=== PATIENT | male | born 1965 | race American Indian/Alaskan Native ===

== ENCOUNTER 2018-11-04 15:01 | Inpatient (IN) | payer OTHER ==
[2018-11-04] MEDS ORDERED: NACL 0.9% 1000 ML IV ONE (15:34)
[2018-11-04] MEDS ORDERED: HumuLIN R IV ONE (15:40)
[2018-11-04] MEDS ORDERED: D50W (25GM) Syringe IV PRN (15:40)
[2018-11-04 15:59] LABS: Bacteria,Urine 1+ /HPF (Negative); Bilirubin,Urine NEG (Negative); Blood,Urine MOD (Negative); Color,Urine Yellow (Yellow); Mucus,Urine FEW /HPF; Protein,Urine <15 mg/dL mg/dL (Negative); Urobilinogen,Urine < 2.0 mg/dL (<2.0)
[2018-11-04] MEDS ORDERED: ROCEPHIN/NS 1 GM/50 ML 1 GM/50 ML BAG IV ONE (16:11)
[2018-11-04 16:13] LABS: Hematocrit 41.9 % (35.5-45.6); Hemoglobin 13.8 gm/dl (11.8-15.2); Mean Corpuscular HGB Conc 33 % (32-34); Mean Corpuscular Volume 92 fl (84-94); Platelet Count 160 K/mm3 (140-440); Red Blood Count 4.56 M/mm3 (3.65-5.03); Red Cell Distribution Width 14.7 % (13.2-15.2)
[2018-11-04 16:26] LABS: INR 1.27 (0.87-1.13)
[2018-11-04 16:27] LABS: Partial Thromboplastin Time 31.6 Sec. (24.2-36.6)
[2018-11-04 16:35] LABS: Albumin 3.1 g/dL (3.9-5); Calcium 7.2 mg/dL (8.4-10.2)
[2018-11-04 16:42] LABS: Free T4 (Free Thyroxine) 0.68 ng/dL (0.76-1.46)
[2018-11-04] MEDS ORDERED: CALCIUM GLUCONATE 1,000 MG in NACL 0.9% 100 ML IV ONE (17:00)
--- NOTE | 2018-11-04 17:03 | Cat Scan Report ---
CT head/brain wo con INDICATION / CLINICAL INFORMATION: 53 years Male; ams, found on ground. 53-year-old male TECHNIQUE: Routine CT head without contrast. All CT scans at this location are performed using CT dos e reduction for ALARA by means of automated exposure control. COMPARISON: None. FINDINGS: BRAIN / INTRACRANIAL CONTENTS: No acute hemorrhage, mass effect, midline shift, hydrocephalus, or acu te, large territorial infarct. No chronic infarct or focal atrophy. Normal brain volume and ventricul ar/sulcal size for age. No significant white matter abnormality. CRANIOCERVICAL JUNCTION: No significant abnormality. ORBITS: No significant abnormality of visualized orbits. SINUSES / MASTOIDS: Mild mucosal thickening seen in the ethmoids. Osteoma seen in the right frontal s inus-of no clinical significance. ADDITIONAL FINDINGS: None. IMPRESSION: 1. No focal mass, hemorrhage, hydrocephalus, or acute, large territorial infarct. Signer Name: Shiva Diehl MD, III Signed: 11/04/2018 4:59 PM Workstation Name: [id number]
--- NOTE | 2018-11-04 17:09 | Cat Scan Report ---
CT cervical spine wo con INDICATION / CLINICAL INFORMATION: 53 years Male; MAIN: ams, found on ground fall, head injury PT IS UNRESPONSIVE OLD CT HD AND CERVI MINNIE SENT. TECHNIQUE: Axial CT images of the cervical spine were obtained. Sagittal and coronal reformatted images were pr oduced. All CT scans at this location are performed using CT dose reduction for ALARA by means of aut omated exposure control. COMPARISON: None available. FINDINGS: POST-SURGICAL CHANGES: None. ALIGNMENT: Normal cervical lordosis seen without significant scoliosis. VERTEBRAE: No signs of fracture. Vertebral bodies are grossly normal in height throughout. No signif icant facet joint disease or osseous foraminal narrowing appreciated. INTRAVERTEBRAL DISCS:Disc spaces are fairly well-maintained throughout without significant canal sten osis. PARASPINAL SOFT TISSUES: No significant abnormality. ADDITIONAL FINDINGS: None. IMPRESSION: 1. No signs of acute bony trauma to the cervical spine. Signer Name: Shiva Diehl MD, III Signed: 11/04/2018 5:05 PM Workstation Name: [id number]
--- NOTE | 2018-11-04 17:10 | Emergency Department Report ---
ED Altered Mental Status HPI - General Chief Complaint: Hyperglycemia Stated Complaint: AMS Time Seen by Provider: 11/04/18 15:33 Source: EMS, old records reviewed (no previous medical record) Mode of arrival: Stretcher Limitations: Altered Mental Status - History of Present Illness Initial Comments: 53-year-old male with a past medical history diabetes presents to the hospital via EMS for also recently mental status and hyperglycemia. Patient's friends and family have not heard from the patient at least 5 days[address] broke down the door and patient was found unresponsive on the kitchen floor covered in fecal matter. Blood sugar was greater than 500 upon EMS arrival. He reported a systolic pressure in the 90s that was responsive to 1 L of IV fluid with a systolic pressure 109 upon arrival. Patient does open eyes and follows some commands and makes incomprehensible sounds when he speaks. No further history of present illness available at this time. No previous medical record available for review. - Related Data Allergies Allergy/AdvReac Type Severity Reaction Status Date / Time No Known Allergies Allergy Unverified 11/04/18 15:22 ED Review of Systems ROS: Stated complaint: AMS Other details as noted in HPI Comment: All other systems reviewed and negative ED Past Medical Hx - Past Medical History Hx Diabetes: Yes - Social History Smoking Status: Unknown if ever smoked ED Physical Exam - General Limitations: Altered Mental Status - Other Other exam information: General: Altered Head exam: No hematoma Eyes exam: Normal appearance, pupils equal reactive to light, extraocular movements intact ENT: Dry mucous membranes Neck exam: Patient with c-collar upon presentation Respiratory exam: Clear to auscultation bilateral, no wheezes, rales, crackles Cardiovascular: Normal rate and rhythm Abdomen: Soft, nondistended, and nontender, with normal bowel sounds, no rebound, or guarding Extremity: Full range of motion normal inspection no deformity Back: Patient on backboard initially. Patient log rolled without any signs of contusions. Backboard removed with C-spine immobilization. Neurologic: Lethargic, oriented 0, and cost sounds, equal hand tank maker wood bilateral 4/10 in intensity. Equal foot dorsiflexion with poor antigravity movement bilateral legs. Psychiatric: Confused Skin: Covered in fecal material, no laceration ED Course Vital Signs 11/04/18 11/04/18 11/04/18 15:20 15:37 15:43 Temperature 97.6 F Pulse Rate 115 H 102 H Pulse Rate [ Anterior] Respiratory 26 H 26 H Rate Respiratory Rate [Anterior] Blood Pressure 109/73 103/73 [Left] O2 Sat by Pulse 100 Oximetry 11/04/18 11/04/18 17:00 17:32 Temperature Pulse Rate Pulse Rate [ 97 H 100 H Anterior] Respiratory Rate Respiratory 19 19 Rate [Anterior] Blood Pressure [Left] O2 Sat by Pulse Oximetry - Consultations Consultation #1: 11/04/18 17:02 case d/w invertebrate paleontologist Machine Paint [employer]er Dr Baptiste. Will consult - Lab Data Result diagrams: 11/04/18 16:05 11/04/18 16:05 Lab Results 11/04/18 11/04/18 11/04/18 Range/Units 15:23 15:35 15:35 WBC (4.5-11.0) K/mm3 RBC (3.65-5.03) M/mm3 Hgb (11.8-15.2) gm/dl Hct (35.5-45.6) % MCV (84-94) fl MCH (28-32) pg MCHC (32-34) % RDW (13.2-15.2) % Plt Count (140-440) K/mm3 Add Manual Diff Total Counted Seg Neuts % (Manual) (40.0-70.0) % Band Neutrophils % % Lymphocytes % (Manual) (13.4-35.0) % Reactive Lymphs % (Man) % Monocytes % (Manual) (0.0-7.3) % Eosinophils % (Manual) (0.0-4.3) % Basophils % (Manual) (0.0-1.8) % Metamyelocytes % % Myelocytes % % Promyelocytes % % Blast Cells % % Nucleated RBC % Seg Neutrophils # Man (1.8-7.7) K/mm3 Band Neutrophils # K/mm3 Lymphocytes # (Manual) (1.2-5.4) K/mm3 Abs React Lymphs (Man) K/mm3 Monocytes # (Manual) (0.0-0.8) K/mm3 Eosinophils # (Manual) (0.0-0.4) K/mm3 Basophils # (Manual) (0.0-0.1) K/mm3 Metamyelocytes # K/mm3 Myelocytes # K/mm3 Promyelocytes # K/mm3 Blast Cells # K/mm3 WBC Morphology Hypersegmented Neuts Hyposegmented Neuts Hypogranular Neuts Smudge Cells Toxic Granulation Toxic Vacuolation Dohle Bodies Pelger-Huet Anomaly Liz Rods Platelet Estimate Clumped Platelets Plt Clumps, EDTA Large Platelets Giant Platelets Platelet Satelliting Plt Morphology Comment RBC Morphology Dimorphic RBCs Polychromasia Hypochromasia Poikilocytosis Anisocytosis Microcytosis Macrocytosis Spherocytes Pappenheimer Bodies Sickle Cells Target Cells Tear Drop Cells Ovalocytes Helmet Cells Vicente-Valliant Bodies Carlton Rings Deshler Cells Bite Cells Crenated Cell Elliptocytes Acanthocytes (Spur) Rouleaux Hemoglobin C Crystals Schistocytes Malaria parasites Osvaldo Bodies Hem Pathologist Commnt PT (12.2-14.9) Sec. INR (0.87-1.13) APTT (24.2-36.6) Sec. VBG pH (7.320-7.420) Sodium (137-145) mmol/L Potassium (3.6-5.0) mmol/L Chloride (98-107) mmol/L Carbon Dioxide (22-30) mmol/L Anion Gap mmol/L BUN (9-20) mg/dL Creatinine (0.8-1.5) mg/dL Estimated GFR ml/min BUN/Creatinine Ratio % Glucose (75-100) mg/dL POC Glucose > 500 H (70-105) Lactic Acid (0.7-2.0) mmol/L Calcium (8.4-10.2) mg/dL Phosphorus (2.5-4.5) mg/dL Magnesium (1.7-2.3) mg/dL Total Bilirubin (0.1-1.2) mg/dL AST (5-40) units/L ALT (7-56) units/L Alkaline Phosphatase (35-129) units/L Ammonia (25-60) umol/L Total Creatine Kinase (55-170) units/L Troponin T (0.00-0.029) ng/mL Total Protein (6.3-8.2) g/dL Albumin (3.9-5) g/dL Albumin/Globulin Ratio % TSH (0.270-4.200) mlU/mL Free T4 (0.76-1.46) ng/dL Urine Color Yellow (Yellow) Urine Turbidity Cloudy (Clear) Urine pH 5.0 (5.0-7.0) Ur Specific [place] 1.020 (1.003-1.030) Urine Protein <15 mg/dl (Negative) mg/dL Urine Glucose (UA) >=500 (Negative) mg/dL Urine Ketones Tr (Negative) mg/dL Urine Blood Mod (Negative) Urine Nitrite Neg (Negative) Urine Bilirubin Neg (Negative) Urine Urobilinogen < 2.0 (<2.0) mg/dL Ur Leukocyte Esterase Tr (Negative) Urine WBC (Auto) 12.0 H (0.0-6.0) /HPF Urine RBC (Auto) 7.0 (0.0-6.0) /HPF Urine Bacteria (Auto) 1+ (Negative) /HPF Urine Mucus Few /HPF Urine Opiates Screen Presumptive negative Urine Methadone Screen Presumptive negative Ur Barbiturates Screen Presumptive negative Ur Phencyclidine Scrn Presumptive negative Ur Amphetamines Screen Presumptive negative U Benzodiazepines Scrn Presumptive negative Urine Cocaine Screen Presumptive negative U Marijuana (THC) Screen Presumptive negative Drugs of Abuse Note Disclamer 11/04/18 11/04/18 11/04/18 Range/Units 16:05 16:05 16:05 WBC 12.6 H (4.5-11.0) K/mm3 RBC 4.56 (3.65-5.03) M/mm3 Hgb 13.8 (11.8-15.2) gm/dl Hct 41.9 (35.5-45.6) % MCV 92 (84-94) fl MCH 30 (28-32) pg MCHC 33 (32-34) % RDW 14.7 (13.2-15.2) % Plt Count 160 (140-440) K/mm3 Add Manual Diff Complete Total Counted 100 Seg Neuts % (Manual) 84.0 H (40.0-70.0) % Band Neutrophils % 7.0 % Lymphocytes % (Manual) 1.0 L (13.4-35.0) % Reactive Lymphs % (Man) 0 % Monocytes % (Manual) 5.0 (0.0-7.3) % Eosinophils % (Manual) 0 (0.0-4.3) % Basophils % (Manual) 0 (0.0-1.8) % Metamyelocytes % 3.0 % Myelocytes % 0 % Promyelocytes % 0 % Blast Cells % 0 % Nucleated RBC % Not Reportable Seg Neutrophils # Man 10.6 H (1.8-7.7) K/mm3 Band Neutrophils # 0.9 K/mm3 Lymphocytes # (Manual) 0.1 L (1.2-5.4) K/mm3 Abs React Lymphs (Man) 0.0 K/mm3 Monocytes # (Manual) 0.6 (0.0-0.8) K/mm3 Eosinophils # (Manual) 0.0 (0.0-0.4) K/mm3 Basophils # (Manual) 0.0 (0.0-0.1) K/mm3 Metamyelocytes # 0.4 K/mm3 Myelocytes # 0.0 K/mm3 Promyelocytes # 0.0 K/mm3 Blast Cells # 0.0 K/mm3 WBC Morphology Not Reportable Hypersegmented Neuts Not Reportable Hyposegmented Neuts Not Reportable Hypogranular Neuts Not Reportable Smudge Cells Not Reportable Toxic Granulation Not Reportable Toxic Vacuolation Not Reportable Dohle Bodies Not Reportable Pelger-Huet Anomaly Not Reportable Liz Rods Not Reportable Platelet Estimate Consistent w auto Clumped Platelets Not Reportable Plt Clumps, EDTA Not Reportable Large Platelets Not Reportable Giant Platelets Not Reportable Platelet Satelliting Not Reportable Plt Morphology Comment Not Reportable RBC Morphology Not Reportable Dimorphic RBCs Not Reportable Polychromasia Not Reportable Hypochromasia Not Reportable Poikilocytosis Not Reportable Anisocytosis Not Reportable Microcytosis Not Reportable Macrocytosis Not Reportable Spherocytes Not Reportable Pappenheimer Bodies Not Reportable Sickle Cells Not Reportable Target Cells Not Reportable Tear Drop Cells Not Reportable Ovalocytes Not Reportable Helmet Cells Not Reportable Vicente-Valliant Bodies Not Reportable Carlton Rings Not Reportable Lyndsey Cells Not Reportable Bite Cells Not Reportable Crenated Cell Not Reportable Elliptocytes Few Acanthocytes (Spur) Not Reportable Rouleaux Not Reportable Hemoglobin C Crystals Not Reportable Schistocytes Not Reportable Malaria parasites Not Reportable Osvaldo Bodies Not Reportable Hem Pathologist Commnt No PT (12.2-14.9) Sec. INR (0.87-1.13) APTT (24.2-36.6) Sec. VBG pH (7.320-7.420) Sodium 153 H (137-145) mmol/L Potassium 6.2 H* (3.6-5.0) mmol/L Chloride 99.1 (98-107) mmol/L Carbon Dioxide 18 L (22-30) mmol/L Anion Gap 42 mmol/L BUN 200 H (9-20) mg/dL Creatinine 6.8 H (0.8-1.5) mg/dL Estimated GFR 10 ml/min BUN/Creatinine Ratio 29 % Glucose 1088 H* (75-100) mg/dL POC Glucose (70-105) Lactic Acid (0.7-2.0) mmol/L Calcium 7.2 L (8.4-10.2) mg/dL Phosphorus (2.5-4.5) mg/dL Magnesium (1.7-2.3) mg/dL Total Bilirubin 0.40 (0.1-1.2) mg/dL AST 27 (5-40) units/L ALT 31 (7-56) units/L Alkaline Phosphatase 105 (35-129) units/L Ammonia (25-60) umol/L Total Creatine Kinase (55-170) units/L Troponin T 0.017 (0.00-0.029) ng/mL Total Protein 6.9 (6.3-8.2) g/dL Albumin 3.1 L (3.9-5) g/dL Albumin/Globulin Ratio 0.8 % TSH (0.270-4.200) mlU/mL Free T4 (0.76-1.46) ng/dL Urine Color (Yellow) Urine Turbidity (Clear) Urine pH (5.0-7.0) Ur Specific [place] (1.003-1.030) Urine Protein (Negative) mg/dL Urine Glucose (UA) (Negative) mg/dL Urine Ketones (Negative) mg/dL Urine Blood (Negative) Urine Nitrite (Negative) Urine Bilirubin (Negative) Urine Urobilinogen (<2.0) mg/dL Ur Leukocyte Esterase (Negative) Urine WBC (Auto) (0.0-6.0) /HPF Urine RBC (Auto) (0.0-6.0) /HPF Urine Bacteria (Auto) (Negative) /HPF Urine Mucus /HPF Urine Opiates Screen Urine Methadone Screen Ur Barbiturates Screen Ur Phencyclidine Scrn Ur Amphetamines Screen U Benzodiazepines Scrn Urine Cocaine Screen U Marijuana (THC) Screen Drugs of Abuse Note 11/04/18 11/04/18 11/04/18 Range/Units 16:05 16:05 16:05 WBC (4.5-11.0) K/mm3 RBC (3.65-5.03) M/mm3 Hgb (11.8-15.2) gm/dl Hct (35.5-45.6) % MCV (84-94) fl MCH (28-32) pg MCHC (32-34) % RDW (13.2-15.2) % Plt Count (140-440) K/mm3 Add Manual Diff Total Counted Seg Neuts % (Manual) (40.0-70.0) % Band Neutrophils % % Lymphocytes % (Manual) (13.4-35.0) % Reactive Lymphs % (Man) % Monocytes % (Manual) (0.0-7.3) % Eosinophils % (Manual) (0.0-4.3) % Basophils % (Manual) (0.0-1.8) % Metamyelocytes % % Myelocytes % % Promyelocytes % % Blast Cells % % Nucleated RBC % Seg Neutrophils # Man (1.8-7.7) K/mm3 Band Neutrophils # K/mm3 Lymphocytes # (Manual) (1.2-5.4) K/mm3 Abs React Lymphs (Man) K/mm3 Monocytes # (Manual) (0.0-0.8) K/mm3 Eosinophils # (Manual) (0.0-0.4) K/mm3 Basophils # (Manual) (0.0-0.1) K/mm3 Metamyelocytes # K/mm3 Myelocytes # K/mm3 Promyelocytes # K/mm3 Blast Cells # K/mm3 WBC Morphology Hypersegmented Neuts Hyposegmented Neuts Hypogranular Neuts Smudge Cells Toxic Granulation Toxic Vacuolation Dohle Bodies Pelger-Huet Anomaly Liz Rods Platelet Estimate Clumped Platelets Plt Clumps, EDTA Large Platelets Giant Platelets Platelet Satelliting Plt Morphology Comment RBC Morphology Dimorphic RBCs Polychromasia Hypochromasia Poikilocytosis Anisocytosis Microcytosis Macrocytosis Spherocytes Pappenheimer Bodies Sickle Cells Target Cells Tear Drop Cells Ovalocytes Helmet Cells Vicente-Valliant Bodies Carlton Rings Lyndsey Cells Bite Cells Crenated Cell Elliptocytes Acanthocytes (Spur) Rouleaux Hemoglobin C Crystals Schistocytes Malaria parasites Osvaldo Bodies Hem Pathologist Commnt PT 15.6 H (12.2-14.9) Sec. INR 1.27 H (0.87-1.13) APTT 31.6 (24.2-36.6) Sec. VBG pH 7.245 L (7.320-7.420) Sodium (137-145) mmol/L Potassium (3.6-5.0) mmol/L Chloride (98-107) mmol/L Carbon Dioxide (22-30) mmol/L Anion Gap mmol/L BUN (9-20) mg/dL Creatinine (0.8-1.5) mg/dL Estimated GFR ml/min BUN/Creatinine Ratio % Glucose (75-100) mg/dL POC Glucose (70-105) Lactic Acid 2.80 H* (0.7-2.0) mmol/L Calcium (8.4-10.2) mg/dL Phosphorus (2.5-4.5) mg/dL Magnesium (1.7-2.3) mg/dL Total Bilirubin (0.1-1.2) mg/dL AST (5-40) units/L ALT (7-56) units/L Alkaline Phosphatase (35-129) units/L Ammonia (25-60) umol/L Total Creatine Kinase (55-170) units/L Troponin T (0.00-0.029) ng/mL Total Protein (6.3-8.2) g/dL Albumin (3.9-5) g/dL Albumin/Globulin Ratio % TSH (0.270-4.200) mlU/mL Free T4 (0.76-1.46) ng/dL Urine Color (Yellow) Urine Turbidity (Clear) Urine pH (5.0-7.0) Ur Specific [place] (1.003-1.030) Urine Protein (Negative) mg/dL Urine Glucose (UA) (Negative) mg/dL Urine Ketones (Negative) mg/dL Urine Blood (Negative) Urine Nitrite (Negative) Urine Bilirubin (Negative) Urine Urobilinogen (<2.0) mg/dL Ur Leukocyte Esterase (Negative) Urine WBC (Auto) (0.0-6.0) /HPF Urine RBC (Auto) (0.0-6.0) /HPF Urine Bacteria (Auto) (Negative) /HPF Urine Mucus /HPF Urine Opiates Screen Urine Methadone Screen Ur Barbiturates Screen Ur Phencyclidine Scrn Ur Amphetamines Screen U Benzodiazepines Scrn Urine Cocaine Screen U Marijuana (THC) Screen Drugs of Abuse Note 11/04/18 11/04/18 11/04/18 Range/Units 16:05 16:05 16:05 WBC (4.5-11.0) K/mm3 RBC (3.65-5.03) M/mm3 Hgb (11.8-15.2) gm/dl Hct (35.5-45.6) % MCV (84-94) fl MCH (28-32) pg MCHC (32-34) % RDW (13.2-15.2) % Plt Count (140-440) K/mm3 Add Manual Diff Total Counted Seg Neuts % (Manual) (40.0-70.0) % Band Neutrophils % % Lymphocytes % (Manual) (13.4-35.0) % Reactive Lymphs % (Man) % Monocytes % (Manual) (0.0-7.3) % Eosinophils % (Manual) (0.0-4.3) % Basophils % (Manual) (0.0-1.8) % Metamyelocytes % % Myelocytes % % Promyelocytes % % Blast Cells % % Nucleated RBC % Seg Neutrophils # Man (1.8-7.7) K/mm3 Band Neutrophils # K/mm3 Lymphocytes # (Manual) (1.2-5.4) K/mm3 Abs React Lymphs (Man) K/mm3 Monocytes # (Manual) (0.0-0.8) K/mm3 Eosinophils # (Manual) (0.0-0.4) K/mm3 Basophils # (Manual) (0.0-0.1) K/mm3 Metamyelocytes # K/mm3 Myelocytes # K/mm3 Promyelocytes # K/mm3 Blast Cells # K/mm3 WBC Morphology Hypersegmented Neuts Hyposegmented Neuts Hypogranular Neuts Smudge Cells Toxic Granulation Toxic Vacuolation Dohle Bodies Pelger-Huet Anomaly Liz Rods Platelet Estimate Clumped Platelets Plt Clumps, EDTA Large Platelets Giant Platelets Platelet Satelliting Plt Morphology Comment RBC Morphology Dimorphic RBCs Polychromasia Hypochromasia Poikilocytosis Anisocytosis Microcytosis Macrocytosis Spherocytes Pappenheimer Bodies Sickle Cells Target Cells Tear Drop Cells Ovalocytes Helmet Cells Vicente-Valliant Bodies Carlton Rings Deshler Cells Bite Cells Crenated Cell Elliptocytes Acanthocytes (Spur) Rouleaux Hemoglobin C Crystals Schistocytes Malaria parasites Osvaldo Bodies Hem Pathologist Commnt PT (12.2-14.9) Sec. INR (0.87-1.13) APTT (24.2-36.6) Sec. VBG pH (7.320-7.420) Sodium (137-145) mmol/L Potassium (3.6-5.0) mmol/L Chloride (98-107) mmol/L Carbon Dioxide (22-30) mmol/L Anion Gap mmol/L BUN (9-20) mg/dL Creatinine (0.8-1.5) mg/dL Estimated GFR ml/min BUN/Creatinine Ratio % Glucose (75-100) mg/dL POC Glucose (70-105) Lactic Acid (0.7-2.0) mmol/L Calcium (8.4-10.2) mg/dL Phosphorus 13.80 H (2.5-4.5) mg/dL Magnesium 3.60 H (1.7-2.3) mg/dL Total Bilirubin (0.1-1.2) mg/dL AST (5-40) units/L ALT (7-56) units/L Alkaline Phosphatase (35-129) units/L Ammonia 47.0 (25-60) umol/L Total Creatine Kinase (55-170) units/L Troponin T (0.00-0.029) ng/mL Total Protein (6.3-8.2) g/dL Albumin (3.9-5) g/dL Albumin/Globulin Ratio % TSH 0.169 L (0.270-4.200) mlU/mL Free T4 0.68 L (0.76-1.46) ng/dL Urine Color (Yellow) Urine Turbidity (Clear) Urine pH (5.0-7.0) Ur Specific [place] (1.003-1.030) Urine Protein (Negative) mg/dL Urine Glucose (UA) (Negative) mg/dL Urine Ketones (Negative) mg/dL Urine Blood (Negative) Urine Nitrite (Negative) Urine Bilirubin (Negative) Urine Urobilinogen (<2.0) mg/dL Ur Leukocyte Esterase (Negative) Urine WBC (Auto) (0.0-6.0) /HPF Urine RBC (Auto) (0.0-6.0) /HPF Urine Bacteria (Auto) (Negative) /HPF Urine Mucus /HPF Urine Opiates Screen Urine Methadone Screen Ur Barbiturates Screen Ur Phencyclidine Scrn Ur Amphetamines Screen U Benzodiazepines Scrn Urine Cocaine Screen U Marijuana (THC) Screen Drugs of Abuse Note 11/04/18 11/04/18 11/04/18 Range/Units 16:05 16:31 16:49 WBC (4.5-11.0) K/mm3 RBC (3.65-5.03) M/mm3 Hgb (11.8-15.2) gm/dl Hct (35.5-45.6) % MCV (84-94) fl MCH (28-32) pg MCHC (32-34) % RDW (13.2-15.2) % Plt Count (140-440) K/mm3 Add Manual Diff Total Counted Seg Neuts % (Manual) (40.0-70.0) % Band Neutrophils % % Lymphocytes % (Manual) (13.4-35.0) % Reactive Lymphs % (Man) % Monocytes % (Manual) (0.0-7.3) % Eosinophils % (Manual) (0.0-4.3) % Basophils % (Manual) (0.0-1.8) % Metamyelocytes % % Myelocytes % % Promyelocytes % % Blast Cells % % Nucleated RBC % Seg Neutrophils # Man (1.8-7.7) K/mm3 Band Neutrophils # K/mm3 Lymphocytes # (Manual) (1.2-5.4) K/mm3 Abs React Lymphs (Man) K/mm3 Monocytes # (Manual) (0.0-0.8) K/mm3 Eosinophils # (Manual) (0.0-0.4) K/mm3 Basophils # (Manual) (0.0-0.1) K/mm3 Metamyelocytes # K/mm3 Myelocytes # K/mm3 Promyelocytes # K/mm3 Blast Cells # K/mm3 WBC Morphology Hypersegmented Neuts Hyposegmented Neuts Hypogranular Neuts Smudge Cells Toxic Granulation Toxic Vacuolation Dohle Bodies Pelger-Huet Anomaly Liz Rods Platelet Estimate Clumped Platelets Plt Clumps, EDTA Large Platelets Giant Platelets Platelet Satelliting Plt Morphology Comment RBC Morphology Dimorphic RBCs Polychromasia Hypochromasia Poikilocytosis Anisocytosis Microcytosis Macrocytosis Spherocytes Pappenheimer Bodies Sickle Cells Target Cells Tear Drop Cells Ovalocytes Helmet Cells Vicente-Valliant Bodies Carlton Rings Lyndsey Cells Bite Cells Crenated Cell Elliptocytes Acanthocytes (Spur) Rouleaux Hemoglobin C Crystals Schistocytes Malaria parasites Osvaldo Bodies Hem Pathologist Commnt PT (12.2-14.9) Sec. INR (0.87-1.13) APTT (24.2-36.6) Sec. VBG pH (7.320-7.420) Sodium (137-145) mmol/L Potassium (3.6-5.0) mmol/L Chloride (98-107) mmol/L Carbon Dioxide (22-30) mmol/L Anion Gap mmol/L BUN (9-20) mg/dL Creatinine (0.8-1.5) mg/dL Estimated GFR ml/min BUN/Creatinine Ratio % Glucose (75-100) mg/dL POC Glucose (70-105) Lactic Acid 1.90 (0.7-2.0) mmol/L Calcium (8.4-10.2) mg/dL Phosphorus (2.5-4.5) mg/dL Magnesium (1.7-2.3) mg/dL Total Bilirubin (0.1-1.2) mg/dL AST (5-40) units/L ALT (7-56) units/L Alkaline Phosphatase (35-129) units/L Ammonia (25-60) umol/L Total Creatine Kinase 1857 H (55-170) units/L Troponin T 0.017 (0.00-0.029) ng/mL Total Protein (6.3-8.2) g/dL Albumin (3.9-5) g/dL Albumin/Globulin Ratio % TSH (0.270-4.200) mlU/mL Free T4 (0.76-1.46) ng/dL Urine Color (Yellow) Urine Turbidity (Clear) Urine pH (5.0-7.0) Ur Specific [place] (1.003-1.030) Urine Protein (Negative) mg/dL Urine Glucose (UA) (Negative) mg/dL Urine Ketones (Negative) mg/dL Urine Blood (Negative) Urine Nitrite (Negative) Urine Bilirubin (Negative) Urine Urobilinogen (<2.0) mg/dL Ur Leukocyte Esterase (Negative) Urine WBC (Auto) (0.0-6.0) /HPF Urine RBC (Auto) (0.0-6.0) /HPF Urine Bacteria (Auto) (Negative) /HPF Urine Mucus /HPF Urine Opiates Screen Urine Methadone Screen Ur Barbiturates Screen Ur Phencyclidine Scrn Ur Amphetamines Screen U Benzodiazepines Scrn Urine Cocaine Screen U Marijuana (THC) Screen Drugs of Abuse Note - EKG Data -: EKG Interpreted by Me (danni) EKG shows normal: sinus rhythm, axis (qrs axis 73), QRS complexes (qrsd 64), ST- T waves (no stemi) Rate: tachycardia (109) When compared to previous EKG there are: previous EKG unavailable - Radiology Data Radiology results: report reviewed CT cervical spine wo con INDICATION / CLINICAL INFORMATION: 53 years Male; MAIN: ams, found on ground fall, head injury PT IS UNRESPONSIVE OLD CT HD AND CE RVICAL SENT. TECHNIQUE: Axial CT images of the cervical spine were obtained. Sagittal and coronal reformatted images were produced. All CT scans at this location are performed using CT dose reduction for ALARA by means of automated exposure control. COMPARISON: None available. FINDINGS: POST-SURGICAL CHANGES: None. ALIGNMENT: Normal cervical lordosis seen without significant scoliosis. VERTEBRAE: No signs of fracture. Vertebral bodies are grossly normal in height throughout. No significant facet joint disease or osseous foraminal narrowing appreciated. INTRAVERTEBRAL DISCS:Disc spaces are fairly well-maintained throughout without significant canal stenosis. PARASPINAL SOFT TISSUES: No significant abnormality. ADDITIONAL FINDINGS: None. IMPRESSION: 1. No signs of acute bony trauma to the cervical spine. CT head/brain wo con INDICATION / CLINICAL INFORMATION: 53 years Male; ams, found on ground. 53-year-old male TECHNIQUE: Routine CT head without contrast. All CT scans at this location are performed using CT dose reduction for ALARA by means of automated exposure control. COMPARISON: None. FINDINGS: BRAIN / INTRACRANIAL CONTENTS: No acute hemorrhage, mass effect, midline shift, hydrocephalus, or acute, large territorial infarct. No chronic infarct or focal atrophy. Normal brain volume and ventricular/sulcal size for age. No significant white matter abnormality. CRANIOCERVICAL JUNCTION: No significant abnormality. ORBITS: No significant abnormality of visualized orbits. SINUSES / MASTOIDS: Mild mucosal thickening seen in the ethmoids. Osteoma seen in the right frontal sinus-of no clinical significance. ADDITIONAL FINDINGS: None. IMPRESSION: 1. No focal mass, hemorrhage, hydrocephalus, or acute, large territorial infarct. - Medical Decision Making Patient with hyperglycemia. Patient most likely HHNK but may also be acidotic due to dka. Insulin bolus and drip initiated in ed pt with renal failure with associated acidosis and hyperkalemia. BUN/Cr ratio suggestive of prerenal/dehydration as cause. + ck elevation. NS, Calcium gluconate, albuterol in ed. Renal consulted. delgado to monitor urine output. low tsh and t4 noted possible uti: rocephin, cultures ordered bp stable after IVF bolus. ct head/c-spine unremarkable for ich or acute injury Critical Care Time: Yes Critical care time in (mins) excluding proc time.: 35 Critical care attestation.: If time is entered above; I have spent that time in minutes in the direct care of this critically ill patient, excluding procedure time. ED Disposition Clinical Impression: DKA (diabetic ketoacidoses), Hyperkalemia, ARF (acute renal failure), Dehydration, Uremia, Acute alteration in mental status, Elevated CK, UTI (urinary tract infection) Disposition: -09 OP ADMIT IP TO THIS HOSP Is pt being admited?: Yes Condition: Serious Referrals: MILTON MEDINA MD [Primary Care Provider] - 3-5 Days Time of Disposition: 17:25 (Dr Meza/hosp)
[2018-11-04 17:13] LABS: Amphetamine Screen,Urine PRESUMPTIVE NEGATIVE; Benzodiazepines Screen,Urine PRESUMPTIVE NEGATIVE; Cannabinoid Screen,Urine PRESUMPTIVE NEGATIVE; Cocaine Screen,Urine PRESUMPTIVE NEGATIVE; Methadone Screen,Urine PRESUMPTIVE NEGATIVE; Opiate Screen,Urine PRESUMPTIVE NEGATIVE
[2018-11-04] MEDS: HumuLIN R 100 UNITS in NACL 0.9% 99 ML IV SCH (17:13)
[2018-11-04 17:14] LABS: Band Neutrophils # (Manual) 0.9 K/mm3; Basophils % (Manual) 0 % (0.0-1.8); Eosinophils % (Manual) 0 % (0.0-4.3); Total Cells Counted 100
[2018-11-04 17:15] LABS: Platelet Estimate Consistent w Auto
[2018-11-04] MEDS ORDERED: PROVENTIL IH ONE (17:22)
--- NOTE | 2018-11-04 17:41 | History and Physical Report ---
History of Present Illness Chief complaint: Stuporous History of present illness: 53 YO Male with DM presents to ED for evaluation. Pt is stuporous st time of my exam and unable to provide history. Pt history taken from EMS as well as ED staff. As per staff, the patient found down and unresponsive in his home. Pt last contact with family was 5 days ago. At that time the patient was in his usual state of health. A well check was conducted, and the patient was unable to answer the door. Law Enforcement was contacted, and gained entry into the home. The patient was subsequently found down, and unresponsive and lying on the kitchen floor covered in fecal matter. EMS notified, and upon arrival the patient was found to have a serum glucose above 500, and in distress. Pt transported to [facility]. Pt seen and evaluated in ED and found to have DKA, Metabolic Encephalopathy, Sepsis suspected secondary to UTI, Rhabdomyolysis, Acidosis, and Acute Kidney Injury. QSOFA Score:8. Pt admitted to ICU and initiated on Sepsis protocol, as well as DKA protocol. Nephrology consulted in ED. Pulmonary team consulted in ED. No further history obtainable. No prior admission for review. No medication listed at time of admission for reconciliation. 30minutes Additional critical care time spend providing care. Past History Past Medical History: diabetes Past Surgical History: No surgical history, Other (Reviewed: UTO) Social history: . denies: smoking, alcohol abuse, prescription drug abuse Family history: no significant family history (reviewed: UTO) Medications and Allergies Allergies Allergy/AdvReac Type Severity Reaction Status Date / Time No Known Allergies Allergy Unverified 11/04/18 15:22 Active Meds: Active Medications Dextrose (D50w (25gm) Syringe) 0 ml IV PRN PRN PRN Reason: Hypoglycemia Insulin Human Regular 100 (units/ Sodium Chloride) 100 mls @ 1 mls/hr IV TITR MARIEL; Protocol Review of Systems ROS unobtainable: due to mental status Exam - Constitutional Vitals: Temp Pulse Resp BP Pulse Ox 97.6 F 100 H 19 103/73 100 11/04/18 15:43 11/04/18 17:32 11/04/18 17:32 11/04/18 15:43 11/04/18 15:43 General appearance: Present: severe distress - EENT Eyes: Present: miosis - Neck Neck: Present: supple, normal ROM - Respiratory Respiratory effort: normal Respiratory: bilateral: CTA - Cardiovascular Rhythm: other (tachycardia) Heart Sounds: Present: S1 & S2. Absent: rub, click - Extremities Extremities: pulses symmetrical, No edema Peripheral Pulses: abnormal (capillary refill greater than 3.5 seconds) - Abdominal General gastrointestinal: Present: soft, non-tender, non-distended, normal bowel sounds Male genitourinary: Present: normal - Integumentary Integumentary: Present: clear, warm, dry - Musculoskeletal Musculoskeletal: generalized weakness - Psychiatric Psychiatric: no appropriate mood/affect, no intact judgment & insight, no memory intact, no cooperative, no agitated - Neurologic Neurologic: CNII-XII intact, no focal deficits, moves all extremities, no gait normal Results - Labs CBC & Chem 7: 11/04/18 16:05 11/04/18 16:05 Labs: Abnormal lab results 11/04/18 11/04/18 11/04/18 Range/Units 15:23 15:35 16:05 WBC 12.6 H (4.5-11.0) K/mm3 Seg Neuts % (Manual) 84.0 H (40.0-70.0) % Lymphocytes % (Manual) 1.0 L (13.4-35.0) % Seg Neutrophils # Man 10.6 H (1.8-7.7) K/mm3 Lymphocytes # (Manual) 0.1 L (1.2-5.4) K/mm3 PT (12.2-14.9) Sec. INR (0.87-1.13) VBG pH (7.320-7.420) Sodium (137-145) mmol/L Potassium (3.6-5.0) mmol/L Carbon Dioxide (22-30) mmol/L BUN (9-20) mg/dL Creatinine (0.8-1.5) mg/dL Glucose (75-100) mg/dL POC Glucose > 500 H (70-105) Lactic Acid (0.7-2.0) mmol/L Calcium (8.4-10.2) mg/dL Phosphorus (2.5-4.5) mg/dL Magnesium (1.7-2.3) mg/dL Total Creatine Kinase (55-170) units/L Albumin (3.9-5) g/dL TSH (0.270-4.200) mlU/mL Free T4 (0.76-1.46) ng/dL Urine WBC (Auto) 12.0 H (0.0-6.0) /HPF 11/04/18 11/04/18 11/04/18 Range/Units 16:05 16:05 16:05 WBC (4.5-11.0) K/mm3 Seg Neuts % (Manual) (40.0-70.0) % Lymphocytes % (Manual) (13.4-35.0) % Seg Neutrophils # Man (1.8-7.7) K/mm3 Lymphocytes # (Manual) (1.2-5.4) K/mm3 PT 15.6 H (12.2-14.9) Sec. INR 1.27 H (0.87-1.13) VBG pH (7.320-7.420) Sodium 153 H (137-145) mmol/L Potassium 6.2 H* (3.6-5.0) mmol/L Carbon Dioxide 18 L (22-30) mmol/L BUN 200 H (9-20) mg/dL Creatinine 6.8 H (0.8-1.5) mg/dL Glucose 1088 H* (75-100) mg/dL POC Glucose (70-105) Lactic Acid 2.80 H* (0.7-2.0) mmol/L Calcium 7.2 L (8.4-10.2) mg/dL Phosphorus (2.5-4.5) mg/dL Magnesium (1.7-2.3) mg/dL Total Creatine Kinase (55-170) units/L Albumin 3.1 L (3.9-5) g/dL TSH (0.270-4.200) mlU/mL Free T4 (0.76-1.46) ng/dL Urine WBC (Auto) (0.0-6.0) /HPF 11/04/18 11/04/18 11/04/18 Range/Units 16:05 16:05 16:05 WBC (4.5-11.0) K/mm3 Seg Neuts % (Manual) (40.0-70.0) % Lymphocytes % (Manual) (13.4-35.0) % Seg Neutrophils # Man (1.8-7.7) K/mm3 Lymphocytes # (Manual) (1.2-5.4) K/mm3 PT (12.2-14.9) Sec. INR (0.87-1.13) VBG pH 7.245 L (7.320-7.420) Sodium (137-145) mmol/L Potassium (3.6-5.0) mmol/L Carbon Dioxide (22-30) mmol/L BUN (9-20) mg/dL Creatinine (0.8-1.5) mg/dL Glucose (75-100) mg/dL POC Glucose (70-105) Lactic Acid (0.7-2.0) mmol/L Calcium (8.4-10.2) mg/dL Phosphorus 13.80 H (2.5-4.5) mg/dL Magnesium 3.60 H (1.7-2.3) mg/dL Total Creatine Kinase (55-170) units/L Albumin (3.9-5) g/dL TSH 0.169 L (0.270-4.200) mlU/mL Free T4 0.68 L (0.76-1.46) ng/dL Urine WBC (Auto) (0.0-6.0) /HPF 11/04/ Range/Units 16:05 WBC (4.5-11.0) K/mm3 Seg Neuts % (Manual) (40.0-70.0) % Lymphocytes % (Manual) (13.4-35.0) % Seg Neutrophils # Man (1.8-7.7) K/mm3 Lymphocytes # (Manual) (1.2-5.4) K/mm3 PT (12.2-14.9) Sec. INR (0.87-1.13) VBG pH (7.320-7.420) Sodium (137-145) mmol/L Potassium (3.6-5.0) mmol/L Carbon Dioxide (22-30) mmol/L BUN (9-20) mg/dL Creatinine (0.8-1.5) mg/dL Glucose (75-100) mg/dL POC Glucose (70-105) Lactic Acid (0.7-2.0) mmol/L Calcium (8.4-10.2) mg/dL Phosphorus (2.5-4.5) mg/dL Magnesium (1.7-2.3) mg/dL Total Creatine Kinase 1857 H (55-170) units/L Albumin (3.9-5) g/dL TSH (0.270-4.200) mlU/mL Free T4 (0.76-1.46) ng/dL Urine WBC (Auto) (0.0-6.0) /HPF Assessment and Plan - Patient Problems (1) Sepsis Current Visit: Yes Status: Acute Qualifiers: Sepsis type: sepsis due to unspecified organism Qualified Code(s): A41.9 - Sepsis, unspecified organism Plan to address problem: Sepsis Protocol: IV antibiotic therapy, blood cultures, monitor uop q shift, serial lactic acid, blood cultures, urinalysis, chest x ray. (2) Metabolic encephalopathy Current Visit: Yes Status: Acute Plan to address problem: CT head, neuro check, treat sepsis, treat dka, ivf resuscitation therapy, thyroid panel, aspiration precautions, seizure precautions.. (3) Acute kidney injury Current Visit: Yes Status: Acute Plan to address problem: IVF resuscitation therapy, Nephrology consulted in ED, urine electrolytes, renal ultrasound, avoid nephrotoxic agents, monitor serum creatnine. (4) Rhabdomyolysis Current Visit: Yes Status: Acute Qualifiers: Encounter type: initial encounter Plan to address problem: IVF resuscitation therapy, IV bicarbonate, repeat CK in am. Nephrology consulted. (5) DKA (diabetic ketoacidoses) Current Visit: Yes Status: Acute Plan to address problem: DKA Protocol: Admit to ICU, Insulin drip, IVF resuscitation therapy, serial bmp, monitor anion gap, (6) Hyperkalemia Current Visit: Yes Status: Acute Plan to address problem: Insulin, serial bmp, (7) UTI (urinary tract infection) Current Visit: Yes Status: Acute Qualifiers: Encounter type: initial encounter Plan to address problem: IV antibiotic therapy, Urinalysis, CBC, (8) Acidosis Current Visit: Yes Status: Acute Plan to address problem: IV bicarbonate, IVF resuscitation therapy, serial lactic acid, (9) Hypothyroidism Current Visit: Yes Status: Acute Qualifiers: Hypothyroidism type: unspecified Qualified Code(s): E03.9 - Hypothyroidism, unspecified Plan to address problem: IV synthroid therapy for 3 days, supportive care. Then change to oral replacement if patient alert and tolerating diet. (10) DVT prophylaxis Current Visit: Yes Status: Acute Plan to address problem: SCD to BLE while in bed, prophylactic heparin
[2018-11-04] MEDS ORDERED: SODIUM CHLORIDE FLUSH SYRINGE 10 ML IV PRN (17:42)
[2018-11-04] MEDS ORDERED: PROVENTIL IH PRN (17:42)
--- NOTE | 2018-11-04 17:43 | XRay Report ---
CHEST 1 VIEW, 11/04/2018 5:06 PM INDICATION: Altered mental status COMPARISON: None FINDINGS: Support devices: None Heart: Cardiac silhouette is within normal limits in size. Lungs/pleura: The lungs are clear of focal airspace disease or significant pleural effusion. Additional findings: No additional acute findings. IMPRESSION: 1. No evidence of acute cardiopulmonary process. Signer Name: Viridiana Ashley MD Signed: 11/04/2018 5:39 PM Workstation Name: [id number]
[2018-11-04] MEDS ORDERED: VANCOMYCIN PHARMACY TO DOSE IV SCH (18:00)
[2018-11-04] MEDS ORDERED: VANCOMYCIN 1,500 MG in NACL 0.9% 500 ML 500 ML IV ONE (18:00)
[2018-11-04] MEDS ORDERED: NACL 0.9% 1000 ML 2,000 ML ONE (18:32)
[2018-11-04] MEDS: NACL 0.9% 1000 ML 3,000 ML IV ONE ×2 (18:55→23:22)
--- NOTE | 2018-11-04 19:42 | Procedure Note ---
Date of procedure: 11/04/18 Pre-op diagnosis: Sepsis Post-op diagnosis: same Procedure: Procedure: Right Femoral Vein Central Line Placement under ultrasound guidance. Pt prepped and draped in the usual sterile fashion. Timeout taken to identify correct procedure, patient, and operative site. Ultrasound used to localize the RFV without difficulty. Local anesthesia obtained with lidocaine 1%. A seeker needle used to access the RFV underultrasound guidance. A guidewire was then passed into RFV and the seeker needle removed over the guidewire. A scalpel was used to incise the skin, and a dilator passed over the guidewire and then removed. A triple lumen catheter was advanced into the RFV and the guidewire removed. Triple lumen catheter was sewn in place. A biopatch was placed at the insertion site. All 3 ports flush and draw with ease. EBL: Minimal complications: None Sepcimen: none Anesthesia: local Surgeon: IVAN VARGAS Estimated blood loss: minimal Pathology: none Condition: stable Disposition: floor Anesthesia: local Surgeon: IVAN VARGAS Estimated blood loss: minimal Pathology: none Condition: critical Disposition: ICU
[2018-11-04 21:04] LABS: Calcium 6.4 mg/dL (8.4-10.2)
[2018-11-04] MEDS ORDERED: SODIUM BICARBONATE IV ONE (21:10)
[2018-11-04 21:15] LABS: Amphetamine Screen,Urine PRESUMPTIVE NEGATIVE; Benzodiazepines Screen,Urine PRESUMPTIVE NEGATIVE; Cannabinoid Screen,Urine PRESUMPTIVE NEGATIVE; Cocaine Screen,Urine PRESUMPTIVE NEGATIVE; Creatinine,Urine 58.1 mg/dL (0.1-20.0); Methadone Screen,Urine PRESUMPTIVE NEGATIVE; Opiate Screen,Urine PRESUMPTIVE NEGATIVE
[2018-11-04] MEDS ORDERED: NACL 0.45% 1000 ML 1,000 ML IV ONE (21:56)
[2018-11-04] MEDS: HEPARIN SUB-Q SCH (22:14)
[2018-11-04] MEDS: SODIUM CHLORIDE FLUSH SYRINGE 10 ML IV SCH (22:15)
--- NOTE | 2018-11-04 22:17 | Ultrasound Report ---
RENAL ULTRASOUND HISTORY: JAVY COMPARISON: None. TECHNIQUE: Multiple real-time ultrasonographic grayscale images were obtained of the kidneys and urin lucía bladder. FINDINGS: Right kidney: No significant abnormality. No hydronephrosis. Kidney measures 12.5 cm. Left kidney: No significant abnormality. No hydronephrosis. Kidney measures 12.6 cm. Urinary bladder: Garzon catheter in the urinary bladder Additional findings: None. IMPRESSION: 1. No significant abnormality. Signer Name: Erik Fishman MD Signed: 11/04/2018 10:13 PM Workstation Name: [id number]
[2018-11-04] MEDS ORDERED: NACL 0.45% 1000 ML 1,000 ML IV SCH (23:00)
[2018-11-05] MEDS: HumuLIN R 100 UNITS in NACL 0.9% 99 ML IV SCH (00:11)
[2018-11-05 01:07] LABS: Calcium 6.5 mg/dL (8.4-10.2)
[2018-11-05] MEDS ORDERED: SODIUM BICARBONATE 150 MEQ in D5W 1,000 ML IV SCH (02:00)
[2018-11-05 04:54] LABS: Calcium 6.3 mg/dL (8.4-10.2)
[2018-11-05] MEDS ORDERED: SYNTHROID IV SCH (06:00)
[2018-11-05] MEDS: D5W 1,000 ML IV SCH ×2 (06:13→17:03)
--- NOTE | 2018-11-05 08:54 | Progress Note ---
Assessment and Plan Assessment and plan: 53 YO Male with DM presents to ED for evaluation. Pt is stuporous st time of my exam and unable to provide history. Pt history taken from EMS as well as ED staff. As per staff, the patient found down and unresponsive in his home. Pt last contact with family was 5 days ago. At that time the patient was in his usual state of health. A well check was conducted, and the patient was unable to answer the door. Law Enforcement was contacted, and gained entry into the home. The patient was subsequently found down, and unresponsive and lying on the kitchen floor covered in fecal matter. EMS notified, and upon arrival the patient was found to have a serum glucose above 500, and in distress. Pt transported to [facility]. Pt seen and evaluated in ED and found to have DKA, Metabolic Encephalopathy, Sepsis suspected secondary to UTI, Rhabdomyolysis, Acidosis, and Acute Kidney Injury. QSOFA Score:8. Pt admitted to ICU and initiated on Sepsis protocol, as well as DKA protocol. Nephrology consulted in ED. Pulmonary team consulted in ED. No further history obtainable. No prior admission for review. No medication listed at time of admission for reconciliation. 30 minutes Additional critical care time spend providing care. CXR, CT HEAD, CT NECK- Negative for acute pathology. (1) Sepsis Current Visit: Yes Status: Acute Qualifiers: Sepsis type: sepsis due to unspecified organism Qualified Code(s): A41.9 - Sepsis, unspecified organism Plan to address problem: Sepsis Protocol: IV antibiotic therapy, blood cultures, monitor uop q shift, serial lactic acid, No Growth but continue to monitor blood cultures, urinalysis, chest x ray. Wound care consult for multiple skin lesions (2) Metabolic encephalopathy Current Visit: Yes Status: Acute Plan to address problem: CONTINUE neuro check, treat sepsis, ivf resuscitation therapy, thyroid panel, aspiration precautions, seizure precautions. Correct underlying issues (3) Acute kidney injury Secondary to vasomotor Nephropathy Current Visit: Yes Status: Acute Plan to address problem: IVF resuscitation therapy, Nephrology consulted in ED, urine electrolytes, renal ultrasound, avoid nephrotoxic agents, monitor serum creatnine. (4) Rhabdomyolysis Current Visit: Yes Status: Acute Qualifiers: Encounter type: initial encounter Plan to address problem: IVF resuscitation therapy, IV bicarbonate, repeat CK in am. Nephrology consulted. (5) DKA (diabetic ketoacidoses) Current Visit: Yes Status: Acute Plan to address problem: DKA Protocol: Continue Insulin drip, IVF resuscitation therapy, serial bmp, monitor anion gap, (6) Hyperkalemia Current Visit: Yes Status: Acute Plan to address problem: Insulin, serial bmp, (7) UTI (urinary tract infection) Current Visit: Yes Status: Acute Qualifiers: Encounter type: initial encounter Plan to address problem: IV antibiotic therapy, Urinalysis, CBC, (8) Acidosis Current Visit: Yes Status: Acute Plan to address problem: IV bicarbonate, IVF resuscitation therapy, serial lactic acid, (9) Hypothyroidism ?s/p myexedema coma Current Visit: Yes Status: Acute Qualifiers: Hypothyroidism type: unspecified Qualified Code(s): E03.9 - Hypothyroidism, unspecified Plan to address problem: IV synthroid therapy for 3 days, supportive care. Then change to oral replacement if patient alert and tolerating diet. (10) Hypocalcemia -Replace (11) Hypomagenesmia -Replace (12)DVT prophylaxis Current Visit: Yes Status: Acute Plan to address problem: SCD to BLE while in bed, prophylactic heparin Plan of care discussed with daughter. she will bring in his home medications The high probability of a clinically significant, sudden or life threatening deterioration of the [Neuro, respiratory, endocrine, pulmonary, renal] system(s) required my full and direct attention, intervention and personal management. The aggregate critical care time was [95] minutes. This time is in addition to time spent performing reported procedures but includes the following: [x] Data Review and interpretation [x] Patient assessment and monitoring of vital signs [x] Documentation [x] Medication orders and management Hospitalist Physical - Physical exam Narrative exam: General appearance: Present: Severe distress, Altered sensorium, spontaneously moving all ext and not following commands - EENT Eyes: Present: miosis - Neck Neck: Present: supple, normal ROM - Respiratory Respiratory effort: normal Respiratory: bilateral: CTA - Cardiovascular Rhythm: other (tachycardia) Heart Sounds: Present: S1 & S2. Absent: rub, click - Extremities Extremities: Pulses symmetrical, No edema Peripheral Pulses: abnormal (capillary refill greater than 3.5 seconds) - Abdominal General gastrointestinal: Present: soft, non-tender, non-distended, normal bowel sounds Male genitourinary: Present: normal - Integumentary Integumentary: Present: multiple eschar and skin lesion, mild erythema but no warmth - Musculoskeletal Musculoskeletal: generalized weakness - Psychiatric Psychiatric: Remains confused - Neurologic Neurologic: CNII-XII intact, no focal deficits, moves all extremities, gait not assessed - Constitutional Vitals: Temp Pulse Resp BP Pulse Ox 99.1 F 128 H 18 100/51 92 11/05/18 07:58 11/05/18 08:00 11/05/18 08:00 11/05/18 08:00 11/05/18 08:00 General appearance: Present: severe distress Results - Labs CBC & Chem 7: 11/04/18 16:05 11/05/18 08:21 Labs: Laboratory Last Values WBC 12.6 K/mm3 (4.5-11.0) H 11/04/18 16:05 RBC 4.56 M/mm3 (3.65-5.03) 11/04/18 16:05 Hgb 13.8 gm/dl (11.8-15.2) 11/04/18 16:05 Hct 41.9 % (35.5-45.6) 11/04/18 16:05 MCV 92 fl (84-94) 11/04/18 16:05 MCH 30 pg (28-32) 11/04/18 16:05 MCHC 33 % (32-34) 11/04/18 16:05 RDW 14.7 % (13.2-15.2) 11/04/18 16:05 Plt Count 160 K/mm3 (140-440) 11/04/18 16:05 Add Manual Diff Complete 11/04/18 16:05 Total Counted 100 11/04/18 16:05 Seg Neuts % (Manual) 84.0 % (40.0-70.0) H 11/04/18 16:05 7.0 % 11/04/18 16:05 1.0 % (13.4-35.0) L 11/04/18 16:05 Reactive Lymphs % (Man) 0 % 11/04/18 16:05 5.0 % (0.0-7.3) 11/04/18 16:05 0 % (0.0-4.3) 11/04/18 16:05 0 % (0.0-1.8) 11/04/18 16:05 3.0 % 11/04/18 16:05 0 % 11/04/18 16:05 0 % 11/04/18 16:05 0 % 11/04/18 16:05 Nucleated RBC % Not Reportable 11/04/18 16:05 Seg Neutrophils # Man 10.6 K/mm3 (1.8-7.7) H 11/04/18 16:05 Band Neutrophils # 0.9 K/mm3 11/04/18 16:05 0.1 K/mm3 (1.2-5.4) L 11/04/18 16:05 Abs React Lymphs (Man) 0.0 K/mm3 11/04/18 16:05 0.6 K/mm3 (0.0-0.8) 11/04/18 16:05 0.0 K/mm3 (0.0-0.4) 11/04/18 16:05 0.0 K/mm3 (0.0-0.1) 11/04/18 16:05 0.4 K/mm3 11/04/18 16:05 0.0 K/mm3 11/04/18 16:05 0.0 K/mm3 11/04/18 16:05 Blast Cells # 0.0 K/mm3 11/04/18 16:05 WBC Morphology Not Reportable 11/04/18 16:05 Hypersegmented Neuts Not Reportable 11/04/18 16:05 Hyposegmented Neuts Not Reportable 11/04/18 16:05 Hypogranular Neuts Not Reportable 11/04/18 16:05 Not Reportable 11/04/18 16:05 Not Reportable 11/04/18 16:05 Not Reportable 11/04/18 16:05 Not Reportable 11/04/18 16:05 Not Reportable 11/04/18 16:05 Not Reportable 11/04/18 16:05 Consistent w auto 11/04/18 16:05 Not Reportable 11/04/18 16:05 Plt Clumps, EDTA Not Reportable 11/04/18 16:05 Not Reportable 11/04/18 16:05 Not Reportable 11/04/18 16:05 Not Reportable 11/04/18 16:05 Plt Morphology Comment Not Reportable 11/04/18 16:05 RBC Morphology Not Reportable 11/04/18 16:05 Dimorphic RBCs Not Reportable 11/04/18 16:05 Not Reportable 11/04/18 16:05 Not Reportable 11/04/18 16:05 Not Reportable 11/04/18 16:05 Not Reportable 11/04/18 16:05 Not Reportable 11/04/18 16:05 Not Reportable 11/04/18 16:05 Not Reportable 11/04/18 16:05 Not Reportable 11/04/18 16:05 Not Reportable 11/04/18 16:05 Not Reportable 11/04/18 16:05 Not Reportable 11/04/18 16:05 Not Reportable 11/04/18 16:05 Not Reportable 11/04/18 16:05 Not Reportable 11/04/18 16:05 Not Reportable 11/04/18 16:05 Not Reportable 11/04/18 16:05 Not Reportable 11/04/18 16:05 Not Reportable 11/04/18 16:05 Few 11/04/18 16:05 Acanthocytes (Spur) Not Reportable 11/04/18 16:05 Rouleaux Not Reportable 11/04/18 16:05 Not Reportable 11/04/18 16:05 Not Reportable 11/04/18 16:05 Not Reportable 11/04/18 16:05 Not Reportable 11/04/18 16:05 Hem Pathologist Commnt No 11/04/18 16:05 PT 15.6 Sec. (12.2-14.9) H 11/04/18 16:05 INR 1.27 (0.87-1.13) H 11/04/18 16:05 APTT 31.6 Sec. (24.2-36.6) 11/04/18 16:05 VBG pH 7.245 (7.320-7.420) L 11/04/18 16:05 Sodium 169 mmol/L (137-145) H* 11/05/18 03:52 Potassium 4.3 mmol/L (3.6-5.0) 11/05/18 03:52 Chloride 126.2 mmol/L (98-107) H 11/05/18 03:52 Carbon Dioxide 23 mmol/L (22-30) 11/05/18 03:52 23 mmol/L 11/05/18 03:52 BUN 156 mg/dL (9-20) H 11/05/18 03:52 4.7 mg/dL (0.8-1.5) H 11/05/18 03:52 Estimated GFR 16 ml/min 11/05/18 03:52 33 % 11/05/18 03:52 Glucose 128 mg/dL (75-100) H 11/05/18 03:52 POC Glucose 157 (70-105) H 11/05/18 08:23 Lactic Acid 3.20 mmol/L (0.7-2.0) H* 11/04/18 23:47 Calcium 6.3 mg/dL (8.4-10.2) L 11/05/18 03:52 Phosphorus 13.80 mg/dL (2.5-4.5) H 11/04/18 16:05 Magnesium 3.60 mg/dL (1.7-2.3) H 11/04/18 16:05 0.40 mg/dL (0.1-1.2) 11/04/18 16:05 AST 27 units/L (5-40) 11/04/18 16:05 ALT 31 units/L (7-56) 11/04/18 16:05 105 units/L (35-129) 11/04/18 16:05 47.0 umol/L (25-60) 11/04/18 16:05 1680 units/L (55-170) H 11/05/18 03:52 0.017 ng/mL (0.00-0.029) 11/04/18 16:31 6.9 g/dL (6.3-8.2) 11/04/18 16:05 3.1 g/dL (3.9-5) L 11/04/18 16:05 0.8 % 11/04/18 16:05 TSH 0.169 mlU/mL (0.270-4.200) L 11/04/18 16:05 Free T4 0.68 ng/dL (0.76-1.46) L 11/04/18 16:05 Yellow (Yellow) 11/04/18 15:35 Cloudy (Clear) 11/04/18 15:35 5.0 (5.0-7.0) 11/04/18 15:35 Ur Specific [place] 1.020 (1.003-1.030) 11/04/18 15:35 <15 mg/dl mg/dL (Negative) 11/04/18 15:35 >=500 mg/dL (Negative) 11/04/18 15:35 Tr mg/dL (Negative) 11/04/18 15:35 Mod (Negative) 11/04/18 15:35 Neg (Negative) 11/04/18 15:35 Neg (Negative) 11/04/18 15:35 < 2.0 mg/dL (<2.0) 11/04/18 15:35 Ur Leukocyte Esterase Tr (Negative) 11/04/18 15:35 12.0 /HPF (0.0-6.0) H 11/04/18 15:35 7.0 /HPF (0.0-6.0) 11/04/18 15:35 1+ /HPF (Negative) 11/04/18 15:35 Few /HPF 11/04/18 15:35 58.1 mg/dL (0.1-20.0) H 11/04/18 20:55 34 mmol/L 11/04/18 20:55 Presumptive negative 11/04/18 20:55 Presumptive negative 11/04/18 20:55 Ur Barbiturates Screen Presumptive negative 11/04/18 20:55 Ur Phencyclidine Scrn Presumptive negative 11/04/18 20:55 Ur Amphetamines Screen Presumptive negative 11/04/18 20:55 U Benzodiazepines Scrn Presumptive negative 11/04/18 20:55 Presumptive negative 11/04/18 20:55 U Marijuana (THC) Screen Presumptive negative 11/04/18 20:55 Disclamer 11/04/18 20:55 Active Medications - Current Medications Current Medications: Generic Name Dose Route Start Last Admin Trade Name Freq PRN Reason Stop Dose Admin Albuterol 2.5 mg 11/04/18 17:42 Proventil IH Q3H PRN Shortness Of Breath Dextrose 0 ml 11/04/18 15:40 D50w (25gm) Syringe IV PRN PRN Hypoglycemia Heparin Sodium (Porcine) 5,000 unit 11/04/18 22:00 11/04/18 22:14 Heparin SUB-Q 5,000 unit Q12HR MARIEL Administration Insulin Human Regular 100 100 mls @ 1 mls/hr 11/04/18 16:00 11/05/18 06:55 units/ Sodium Chloride IV 1.5 units/hr TITR MARIEL 1.5 mls/hr Titration Protocol 1 UNITS/HR Ceftriaxone Sodium 1 gm in 50 mls @ 100 mls/hr 11/05/18 17:00 Rocephin/Ns 1 Gm/50 Ml IV 11/07/18 17:29 Q24H MARIEL Protocol Dextrose 1,000 mls @ 100 mls/hr 11/05/18 06:00 11/05/18 06:13 D5w IV 100 mls/hr DIRECT MARIEL Administration Sodium Chloride 2,000 mls @ 999 mls/hr 11/05/18 08:52 Nacl 0.9% 1000 Ml IV 11/05/18 10:52 BOLUS ONE Levothyroxine Sodium 100 mcg 11/05/18 06:00 11/05/18 06:16 Synthroid IV 11/06/18 05:59 100 mcg DAILY@0600 MARIEL Administration Sodium Chloride 10 ml 11/04/18 22:00 11/04/18 22:15 Sodium Chloride Flush Syringe 10 Ml IV 10 ml BID MARIEL Administration Sodium Chloride 10 ml 11/04/18 17:42 Sodium Chloride Flush Syringe 10 Ml IV PRN PRN LINE FLUSH
[2018-11-05] MEDS ORDERED: NACL 0.9% 1000 ML 2,000 ML IV ONE (09:00)
[2018-11-05 09:05] LABS: Calcium 6.7 mg/dL (8.4-10.2)
[2018-11-05] MEDS: HEPARIN SUB-Q SCH ×2 (10:17→21:22)
[2018-11-05] MEDS: SODIUM CHLORIDE FLUSH SYRINGE 10 ML IV SCH ×2 (10:21→21:45)
[2018-11-05] MEDS ORDERED: CALCIUM CHLORIDE 1,000 MG in NACL 0.9% 100 ML IV ONE (11:30)
--- NOTE | 2018-11-05 11:41 | XRay Report ---
ABDOMEN 1 VIEW(S) INDICATION: tube placement COMPARISON: None available. FINDINGS: Dobbhoff feeding tube is curled in the stomach Bowel gas pattern: Within normal limits. No dilated loops of large or small bowel. Free air: None. Calcified gallstones: None seen. Calcified urinary tract calculi: None seen. Additional Findings: None. Skeletal structures: No acute abnormality. IMPRESSION: 1. No acute findings. Signer Name: Erik Fishman MD Signed: 11/05/2018 11:37 AM Workstation Name: [id number]
--- NOTE | 2018-11-05 11:46 | Consultation ---
History of Present Illness - Reason for Consult Consult date: 11/05/18 acute renal failure, chronic renal failure, hypernatremia, hyperkalemia - History of Present Illness The patient is a 53 YO male with history significant for DM who presented to [facility] ED for evaluation of AMS. Pt is stuporous at the time of my exam and unable to provide history. History was obtained from previous documentation and her daughter at the bedside. The patient was found down and unresponsive in his home covered in fecal matter. Family member talked to him 5 days ago, at that time the patient was in his usual state of health. Upon arrival to ED he was altered and tachycardic. Labs wete significant for blood sugar above 1000, hyperkalemia, elevated BUN & Creatinine, bicarb 18. He was admitted with DKA, Metabolic Encephalopathy, Sepsis suspected secondary to UTI, Rhabdomyolysis and Acute Kidney Injury. Nephrology was consulted to manage JAVY and multiple electrolyte abnormalities. Past History Past Medical History: diabetes Past Surgical History: No surgical history, Other (Reviewed: UTO) Social history: . denies: smoking, alcohol abuse, prescription drug abuse Family history: no significant family history (reviewed: UTO) Medications and Allergies Allergies Allergy/AdvReac Type Severity Reaction Status Date / Time No Known Allergies Allergy Unverified 11/04/18 15:22 Active Meds: Active Medications Albuterol (Proventil) 2.5 mg IH Q3H PRN PRN Reason: Shortness Of Breath Dextrose (D50w (25gm) Syringe) 0 ml IV PRN PRN PRN Reason: Hypoglycemia Heparin Sodium (Porcine) (Heparin) 5,000 unit SUB-Q Q12HR MARIEL Last Admin: 11/05/18 10:17 Dose: 5,000 unit Documented by: Insulin Human Regular 100 (units/ Sodium Chloride) 100 mls @ 1 mls/hr IV TITR MARIEL; Protocol Last Titration: 11/05/18 06:55 Dose: 1.5 units/hr, 1.5 mls/hr Documented by: Ceftriaxone Sodium (Rocephin/Ns 1 Gm/50 Ml) 1 gm in 50 mls @ 100 mls/hr IV Q24H MARIEL; Protocol Stop: 11/07/18 17:29 Dextrose (D5w) 1,000 mls @ 100 mls/hr IV DIRECT MARIEL Last Admin: 11/05/18 06:13 Dose: 100 mls/hr Documented by: Levothyroxine Sodium (Synthroid) 100 mcg IV DAILY@0600 [facility] Stop: 11/06/18 05:59 Last Admin: 11/05/18 06:16 Dose: 100 mcg Documented by: Sodium Chloride (Sodium Chloride Flush Syringe 10 Ml) 10 ml IV BID [facility] Last Admin: 11/05/18 10:21 Dose: 10 ml Documented by: Sodium Chloride (Sodium Chloride Flush Syringe 10 Ml) 10 ml IV PRN PRN PRN Reason: LINE FLUSH Review of Systems ROS unobtainable: due to mental status Exam - Vital Signs Vital signs: Vital Signs Pulse BP 115 H 109/73 11/04/18 15:20 11/04/18 15:20 - General Appearance General appearance: well-developed, appears stated age, other (no distress) EENT: ATNC, PERRL Neck: Present: neck supple, trachea midline Respiratory: Clear to Ascultation Heart: regular, tachycardia, S1S2, no murmurs Gastrointestinal: Present: normoactive bowel sounds. Absent: tenderness, distended Integumentary: no rash, warm and dry Neurologic: other (grimaces) Musculoskeletal: Present: other (no edema) Results - Lab Results 11/04/18 16:05 11/05/18 13:47 Most recent lab results Calcium 6.7 mg/dL (8.4-10.2) L 11/05/18 08:21 Phosphorus 13.80 mg/dL (2.5-4.5) H 11/04/18 16:05 Magnesium 3.60 mg/dL (1.7-2.3) H 11/04/18 16:05 58.1 mg/dL (0.1-20.0) H 11/04/18 20:55 34 mmol/L 11/04/18 20:55 - Image Kidney/bladder ultrasound: report reviewed Assessment and Plan 1. Acute kidney injury: Vasomotor JAVY in the setting of volume depletion and DKA. Renal US was negative for hydro. Continue IV fluids. Renal function is improving. Monitor renal function. Renal prognosis is guarded. Avoid nephrotoxic agents. Meds dosage based on GFR. 2. FEN: Hyperkalemia, improved. Hypernatremia, continue IV D5W. Metabolic acidosis, improved. Monitor lytes. 3. DKA: On Insulin drip. 4. Sepsis: On multiple Abx. 5. UTI: Ceftriaxone. 6. Metabolic Encephalopathy. D/w his daughter and answered all questions.
[2018-11-05] MEDS ORDERED: LEVAQUIN 500MG/100ML 500 MG/100 ML BAG IV ONE (14:00)
[2018-11-05 14:44] LABS: Calcium 6.4 mg/dL (8.4-10.2)
--- NOTE | 2018-11-05 15:57 | Consultation ---
History of Present Illness Consult date: 11/05/18 Requesting physician: IVAN VARGAS Reason for consult: other (DKA) History of present illness: PULMONARY/CCM CONSULT NOTE (Full dictation # [id number]) Please see dictated notes for full details Past History Past Medical History: diabetes Past Surgical History: No surgical history, Other (Reviewed: UTO) Social history: . denies: smoking, alcohol abuse, prescription drug abuse Family history: no significant family history (reviewed: UTO) Medications and Allergies Allergies Allergy/AdvReac Type Severity Reaction Status Date / Time No Known Allergies Allergy Unverified 11/04/18 15:22 Active Meds: Active Medications Albuterol (Proventil) 2.5 mg IH Q3H PRN PRN Reason: Shortness Of Breath Dextrose (D50w (25gm) Syringe) 0 ml IV PRN PRN PRN Reason: Hypoglycemia Heparin Sodium (Porcine) (Heparin) 5,000 unit SUB-Q Q12HR MARIEL Last Admin: 11/05/18 10:17 Dose: 5,000 unit Documented by: Insulin Human Regular 100 (units/ Sodium Chloride) 100 mls @ 1 mls/hr IV TITR MARIEL; Protocol Last Titration: 11/05/18 11:12 Dose: 1.5 units/hr, 1.5 mls/hr Documented by: Dextrose (D5w) 1,000 mls @ 100 mls/hr IV DIRECT MARIEL Last Admin: 11/05/18 06:13 Dose: 100 mls/hr Documented by: Levofloxacin/Dextrose (Levaquin 250mg/50ml) 250 mg in 50 mls @ 50 mls/hr IV Q48H [facility] Levothyroxine Sodium (Synthroid) 100 mcg IV DAILY@0600 [facility]EL Stop: 11/06/18 05:59 Last Admin: 11/05/18 06:16 Dose: 100 mcg Documented by: Sodium Chloride (Sodium Chloride Flush Syringe 10 Ml) 10 ml IV BID MARIEL Last Admin: 11/05/18 10:21 Dose: 10 ml Documented by: Sodium Chloride (Sodium Chloride Flush Syringe 10 Ml) 10 ml IV PRN PRN PRN Reason: LINE FLUSH Physical Examination Vital signs: Vital Signs Pulse BP 115 H 109/73 11/04/18 15:20 11/04/18 15:20 Results - Laboratory Findings CBC and BMP: 11/04/18 16:05 11/05/18 13:47 PT/INR, D-dimer PT 15.6 Sec. (12.2-14.9) H 11/04/18 16:05 INR 1.27 (0.87-1.13) H 11/04/18 16:05 Abnormal lab findings: Abnormal Labs 11/04/18 11/04/18 11/04/18 15:23 15:35 16:05 WBC 12.6 H Seg Neuts % (Manual) 84.0 H Lymphocytes % (Manual) 1.0 L Seg Neutrophils # Man 10.6 H Lymphocytes # (Manual) 0.1 L PT INR VBG pH Sodium Potassium Chloride Carbon Dioxide BUN Creatinine Glucose POC Glucose > 500 H Lactic Acid Calcium Phosphorus Magnesium Total Creatine Kinase Albumin TSH Free T4 PTH Intact Urine WBC (Auto) 12.0 H Urine Creatinine 11/04/18 11/04/18 11/04/18 16:05 16:05 16:05 WBC Seg Neuts % (Manual) Lymphocytes % (Manual) Seg Neutrophils # Man Lymphocytes # (Manual) PT 15.6 H INR 1.27 H VBG pH Sodium 153 H Potassium 6.2 H* Chloride Carbon Dioxide 18 L BUN 200 H Creatinine 6.8 H Glucose 1088 H* POC Glucose Lactic Acid 2.80 H* Calcium 7.2 L Phosphorus Magnesium Total Creatine Kinase Albumin 3.1 L TSH Free T4 PTH Intact Urine WBC (Auto) Urine Creatinine 11/04/18 11/04/18 11/04/18 16:05 16:05 16:05 WBC Seg Neuts % (Manual) Lymphocytes % (Manual) Seg Neutrophils # Man Lymphocytes # (Manual) PT INR VBG pH 7.245 L Sodium Potassium Chloride Carbon Dioxide BUN Creatinine Glucose POC Glucose Lactic Acid Calcium Phosphorus 13.80 H Magnesium 3.60 H Total Creatine Kinase Albumin TSH 0.169 L Free T4 0.68 L PTH Intact Urine WBC (Auto) Urine Creatinine 11/04/18 11/04/18 11/04/18 16:05 20:29 20:29 WBC Seg Neuts % (Manual) Lymphocytes % (Manual) Seg Neutrophils # Man Lymphocytes # (Manual) PT INR VBG pH Sodium 163 H* D Potassium Chloride 121.4 H Carbon Dioxide 21 L BUN 166 H Creatinine 5.6 H Glucose 513 H* POC Glucose Lactic Acid 3.30 H* Calcium 6.4 L Phosphorus Magnesium Total Creatine Kinase 1857 H Albumin TSH Free T4 PTH Intact Urine WBC (Auto) Urine Creatinine 11/04/18 11/04/18 11/04/18 20:29 20:55 21:03 WBC Seg Neuts % (Manual) Lymphocytes % (Manual) Seg Neutrophils # Man Lymphocytes # (Manual) PT INR VBG pH Sodium Potassium Chloride Carbon Dioxide BUN Creatinine Glucose POC Glucose 496 H Lactic Acid 3.30 H* Calcium Phosphorus Magnesium Total Creatine Kinase Albumin TSH Free T4 PTH Intact Urine WBC (Auto) Urine Creatinine 58.1 H 11/04/18 11/04/18 11/04/18 22:00 22:04 23:07 WBC Seg Neuts % (Manual) Lymphocytes % (Manual) Seg Neutrophils # Man Lymphocytes # (Manual) PT INR VBG pH Sodium Potassium Chloride Carbon Dioxide BUN Creatinine Glucose POC Glucose 357 H 306 H Lactic Acid 3.60 H* Calcium Phosphorus Magnesium Total Creatine Kinase Albumin TSH Free T4 PTH Intact Urine WBC (Auto) Urine Creatinine 11/04/18 11/04/18 11/05/18 23:47 23:47 00:04 WBC Seg Neuts % (Manual) Lymphocytes % (Manual) Seg Neutrophils # Man Lymphocytes # (Manual) PT INR VBG pH Sodium 170 H* Potassium Chloride 127.1 H Carbon Dioxide BUN 164 H Creatinine 5.2 H Glucose 213 H POC Glucose 219 H Lactic Acid 3.20 H* Calcium 6.5 L Phosphorus Magnesium Total Creatine Kinase Albumin TSH Free T4 PTH Intact Urine WBC (Auto) Urine Creatinine 11/05/18 11/05/18 11/05/18 00:59 03:13 03:52 WBC Seg Neuts % (Manual) Lymphocytes % (Manual) Seg Neutrophils # Man Lymphocytes # (Manual) PT INR VBG pH Sodium Potassium Chloride Carbon Dioxide BUN Creatinine Glucose POC Glucose 204 H 124 H Lactic Acid Calcium Phosphorus Magnesium Total Creatine Kinase 1680 H Albumin TSH Free T4 PTH Intact Urine WBC (Auto) Urine Creatinine 11/05/18 11/05/18 11/05/18 03:52 04:25 05:11 WBC Seg Neuts % (Manual) Lymphocytes % (Manual) Seg Neutrophils # Man Lymphocytes # (Manual) PT INR VBG pH Sodium 169 H* Potassium Chloride 126.2 H Carbon Dioxide BUN 156 H Creatinine 4.7 H Glucose 128 H POC Glucose 150 H 173 H Lactic Acid Calcium 6.3 L Phosphorus Magnesium Total Creatine Kinase Albumin TSH Free T4 PTH Intact Urine WBC (Auto) Urine Creatinine 11/05/18 11/05/18 11/05/18 06:05 06:58 07:48 WBC Seg Neuts % (Manual) Lymphocytes % (Manual) Seg Neutrophils # Man Lymphocytes # (Manual) PT INR VBG pH Sodium Potassium Chloride Carbon Dioxide BUN Creatinine Glucose POC Glucose 136 H 152 H 177 H Lactic Acid Calcium Phosphorus Magnesium Total Creatine Kinase Albumin TSH Free T4 PTH Intact Urine WBC (Auto) Urine Creatinine 11/05/18 11/05/18 11/05/18 08:21 08:21 08:23 WBC Seg Neuts % (Manual) Lymphocytes % (Manual) Seg Neutrophils # Man Lymphocytes # (Manual) PT INR VBG pH Sodium 171 H* Potassium Chloride 128.9 H Carbon Dioxide BUN 149 H Creatinine 4.5 H Glucose 159 H POC Glucose 157 H Lactic Acid Calcium 6.7 L Phosphorus Magnesium Total Creatine Kinase Albumin TSH Free T4 PTH Intact 119.3 H Urine WBC (Auto) Urine Creatinine 11/05/18 11/05/18 11/05/18 10:21 11:12 12:37 WBC Seg Neuts % (Manual) Lymphocytes % (Manual) Seg Neutrophils # Man Lymphocytes # (Manual) PT INR VBG pH Sodium Potassium Chloride Carbon Dioxide BUN Creatinine Glucose POC Glucose 171 H 155 H 145 H Lactic Acid Calcium Phosphorus Magnesium Total Creatine Kinase Albumin TSH Free T4 PTH Intact Urine WBC (Auto) Urine Creatinine 11/05/18 11/05/18 11/05/18 13:24 13:47 14:42 WBC Seg Neuts % (Manual) Lymphocytes % (Manual) Seg Neutrophils # Man Lymphocytes # (Manual) PT INR VBG pH Sodium 167 H* Potassium Chloride 131.6 H Carbon Dioxide BUN 130 H Creatinine 3.8 H Glucose 136 H POC Glucose 137 H 133 H Lactic Acid Calcium 6.4 L Phosphorus Magnesium Total Creatine Kinase Albumin TSH Free T4 PTH Intact Urine WBC (Auto) Urine Creatinine
[2018-11-05] MEDS ORDERED: ROCEPHIN/NS 1 GM/50 ML 1 GM/50 ML BAG IV SCH (17:00)
[2018-11-05] MEDS ORDERED: D50W (25GM) Syringe IV PRN (17:00)
[2018-11-05] MEDS: HumaLOG SUB-Q SCH ×2 (18:32→21:22)
[2018-11-05] MEDS: LEVAQUIN 250MG/50ML 250 MG/50 ML BAG IV SCH (18:33)
[2018-11-05] MEDS ORDERED: NACL 0.9% 500 ML 500 ML IV ONE (19:24)
[2018-11-05] MEDS ORDERED: LANTUS SUB-Q SCH (22:00)
[2018-11-06 00:47] LABS: Calcium 6.8 mg/dL (8.4-10.2)
[2018-11-06] MEDS: HumaLOG SUB-Q SCH ×6 (01:34→21:35)
[2018-11-06] MEDS: D5W 1,000 ML IV SCH ×3 (01:34→22:01)
--- NOTE | 2018-11-06 03:14 | XRay Report ---
CHEST 1 VIEW INDICATION / CLINICAL INFORMATION: Acute hypoxemic resp failure. COMPARISON: 11/04/2018 FINDINGS: SUPPORT DEVICES: Feeding tube HEART / MEDIASTINUM: No significant abnormality. LUNGS / PLEURA: No significant pulmonary or pleural abnormality. No pneumothorax. ADDITIONAL FINDINGS: No significant additional findings. IMPRESSION: No acute pulmonary or pleural abnormality. No change from 11/04/2018. Signer Name: Rick Noe MD FACHandy Signed: 11/06/2018 3:10 AM Workstation Name: [employer]
[2018-11-06 05:06] LABS: Hematocrit 32.8 % (35.5-45.6); Hemoglobin 11.3 gm/dl (11.8-15.2); Mean Corpuscular HGB Conc 34 % (32-34); Mean Corpuscular Volume 89 fl (84-94); Platelet Count 110 K/mm3 (140-440); Red Cell Distribution Width 14.2 % (13.2-15.2)
[2018-11-06 05:23] LABS: Albumin 2.3 g/dL (3.9-5); Calcium 6.8 mg/dL (8.4-10.2)
--- NOTE | 2018-11-06 08:45 | Progress Note ---
Assessment and Plan 1. Acute kidney injury: Vasomotor JAVY in the setting of volume depletion and DKA. Renal US was negative for hydro. Continue IV fluids. Renal function is improving. Monitor renal function. Renal prognosis is guarded. Avoid nephrotoxic agents. Meds dosage based on GFR. 2. FEN: Hyperkalemia, improved. Hypernatremia, continue IV D5W. Metabolic acidosis, improved. Monitor lytes. 3. DKA: S/p Insulin drip. 4. Sepsis: ?UTI. On Levofloxacin. 5. Metabolic Encephalopathy. Subjective Date of service: 11/06/18 Interval history: Patient was seen and examined at the bedside. Objective - Vital Signs Vital signs: Vital Signs - 12hr 11/05/18 11/05/18 11/05/18 21:00 21:31 22:00 Temperature Pulse Rate 115 H 111 H 110 H Pulse Rate [ From Monitor] Respiratory 32 H 26 H 30 H Rate Blood Pressure 99/58 99/58 100/56 O2 Sat by Pulse 95 96 96 Oximetry 11/05/18 11/05/18 11/05/18 22:19 22:31 23:00 Temperature Pulse Rate 112 H 110 H 112 H Pulse Rate [ 112 H From Monitor] Respiratory 28 H 24 27 H Rate Blood Pressure 100/56 100/56 107/61 O2 Sat by Pulse 96 97 96 Oximetry 11/05/18 11/06/18 11/06/18 23:31 00:00 00:20 Temperature 99.9 F H Pulse Rate 108 H 106 H 106 H Pulse Rate [ From Monitor] Respiratory 29 H 25 H 26 H Rate Blood Pressure 107/61 117/60 117/60 O2 Sat by Pulse 96 97 96 Oximetry 11/06/18 11/06/18 11/06/18 00:31 01:00 01:31 Temperature Pulse Rate 106 H 102 H 101 H Pulse Rate [ From Monitor] Respiratory 27 H 27 H 25 H Rate Blood Pressure 107/61 102/59 117/60 O2 Sat by Pulse 96 97 96 Oximetry 11/06/18 11/06/18 11/06/18 02:00 02:31 03:00 Temperature Pulse Rate 105 H 106 H 106 H Pulse Rate [ From Monitor] Respiratory 26 H 22 24 Rate Blood Pressure 116/64 116/64 105/62 O2 Sat by Pulse 98 98 98 Oximetry 11/06/18 11/06/18 11/06/18 03:31 04:00 04:31 Temperature 99.3 F Pulse Rate 104 H 103 H 99 H Pulse Rate [ 103 H From Monitor] Respiratory 21 21 21 Rate Blood Pressure 105/62 122/62 122/62 O2 Sat by Pulse 99 100 100 Oximetry 11/06/18 11/06/18 11/06/18 05:00 05:13 05:31 Temperature Pulse Rate 101 H 101 H 103 H Pulse Rate [ From Monitor] Respiratory 20 21 22 Rate Blood Pressure 112/60 112/60 112/60 O2 Sat by Pulse 100 100 100 Oximetry 11/06/18 11/06/18 11/06/18 06:00 06:31 08:00 Temperature 100.5 F H Pulse Rate 101 H 104 H Pulse Rate [ From Monitor] Respiratory 30 H 16 Rate Blood Pressure 118/66 112/60 O2 Sat by Pulse 98 98 Oximetry 11/06/18 08:05 Temperature Pulse Rate Pulse Rate [ From Monitor] Respiratory Rate Blood Pressure O2 Sat by Pulse 97 Oximetry - General Appearance General appearance: well-developed, appears stated age, other (no distress) EENT: ATNC, PERRL Neck: supple Respiratory: Present: Clear to Ascultation Cardiology: regular, tachycardia, S1S2, no murmurs Gastrointestinal: normoactive bowel sounds, no tenderness, no distended, other (delgado catheter) Integumentary: no rash, warm and dry Neurologic: other (stuporous) Musculoskeletal: other (no edema) - Lab 11/06/18 04:50 11/06/18 15:42 Most recent lab results Calcium 7.0 mg/dL (8.4-10.2) L 11/06/18 07:50 Phosphorus 3.90 mg/dL (2.5-4.5) D 11/06/18 04:50 Magnesium 3.60 mg/dL (1.7-2.3) H 11/04/18 16:05 58.1 mg/dL (0.1-20.0) H 11/04/18 20:55 34 mmol/L 11/04/18 20:55 Medications & Allergies - Medications Allergies/Adverse Reactions: Allergies No Known Allergies Allergy (Unverified 11/04/18 15:22) Home Medications: Home Medications Medication Instructions Recorded Confirmed Last Taken Type Glimepiride 4 mg PO BID 11/06/18 11/06/18 Unknown History HYDROcodone/ACETAMINOPHEN 5 - 325 mg PO Q4-6H PRN 11/06/18 11/06/18 Unknown History Ibuprofen 800 mg PO Q8HR PRN 11/06/18 11/06/18 Unknown History Lisinopril 2.5 mg PO DAILY 11/06/18 11/06/18 Unknown History Metformin HCl 1,000 mg PO BID 11/06/18 11/06/18 Unknown History NovoLIN N 5 unit SUB-Q BID MDD x 90days 11/06/18 11/06/18 Unknown History Pravastatin Sodium 20 mg PO BID 11/06/18 11/06/18 Unknown History glipiZIDE 10 mg PO BID 11/06/18 11/06/18 Unknown History Active Medications: Generic Name Dose Route Start Last Admin Trade Name Freq PRN Reason Stop Dose Admin Albuterol 2.5 mg 11/04/18 17:42 Proventil IH Q3H PRN Shortness Of Breath Dextrose 0 ml 11/04/18 15:40 D50w (25gm) Syringe IV PRN PRN Hypoglycemia Heparin Sodium (Porcine) 5,000 unit 11/04/18 22:00 11/05/18 21:22 Heparin SUB-Q 5,000 unit Q12HR MARIEL Administration Dextrose 1,000 mls @ 100 mls/hr 11/05/18 06:00 11/06/18 01:34 D5w IV 100 mls/hr DIRECT MARIEL Administration Levofloxacin/Dextrose 250 mg in 50 mls @ 50 mls/hr 11/05/18 15:00 11/05/18 18:33 Levaquin 250mg/50ml IV 11/08/18 14:59 Not Given Q48H MARIEL Insulin Glargine 10 units 11/05/18 22:00 11/05/18 21:22 Lantus SUB-Q 10 units QHS MARIEL Administration Insulin Human Lispro 0 unit 11/05/18 17:00 11/06/18 05:32 Humalog SUB-Q 3 unit Q4H MARIEL Administration Protocol Sodium Chloride 10 ml 11/04/18 22:00 11/05/18 21:45 Sodium Chloride Flush Syringe 10 Ml IV 10 ml BID MARIEL Administration Sodium Chloride 10 ml 11/04/18 17:42 Sodium Chloride Flush Syringe 10 Ml IV PRN PRN LINE FLUSH
[2018-11-06] MEDS: HEPARIN SUB-Q SCH ×2 (09:00→22:29)
[2018-11-06] MEDS: SODIUM CHLORIDE FLUSH SYRINGE 10 ML IV SCH ×2 (09:01→21:36)
--- NOTE | 2018-11-06 10:23 | Event Note ---
Date: 11/06/18 Discussed with patients daughter and Nurse today. daughter brought in patients records which shows Dr Moreira as the patients PCP. Changed Service to him and notified him also. I discussed with ID considering low grade temp and likely sepsis possibly from cellulitis. Also requested a redraw of Na, away from the IV site. Dr Moreira accepted the patient.
--- NOTE | 2018-11-06 12:23 | Consultation ---
History of Present Illness - Reason for Consult Consult date: 11/06/18 Sepsis Requesting physician: DINH JAUREGUI - History of Present Illness Pt is a 53 yo M with PMhx diabetes who was initially found down and unresponsive and brought to the ER. He remains unresponsive at the present time, as such the history is obtained from the chart and from his family who was in the room. He was last noted to be alert on Tuesday, and when his family had nopt heard from him by Tuesday after trying to reach him, they had emergency services check on him. Found down and in DKA with metabolic encephalopathy. No known allergies and no known exposures. Initially there was concern for sepsis secondary to UTI, and concern for cellulitis due to an abrasion on the L elbow. Urine cultures are negative and blood cultures have been negative for 24 hours. He is currently on levofloxacin. White count was elevated on admission but has since resolved. He was febrile on admission to 100.5, but has remained afebrile since. Past History Past Medical History: diabetes Past Surgical History: No surgical history, Other (Reviewed: UTO) Social history: . denies: smoking, alcohol abuse, prescription drug abuse Family history: no significant family history (Unknown per family in room) Medications and Allergies Allergies Allergy/AdvReac Type Severity Reaction Status Date / Time No Known Allergies Allergy Unverified 11/04/18 15:22 Active Meds: Active Medications Albuterol (Proventil) 2.5 mg IH Q3H PRN PRN Reason: Shortness Of Breath Dextrose (D50w (25gm) Syringe) 0 ml IV PRN PRN PRN Reason: Hypoglycemia Famotidine (Pepcid) 20 mg PO DAILY [facility] Heparin Sodium (Porcine) (Heparin) 5,000 unit SUB-Q Q12HR [facility] Last Admin: 11/06/18 09:00 Dose: 5,000 unit Documented by: Dextrose (D5w) 1,000 mls @ 100 mls/hr IV DIRECT [facility] Last Admin: 11/06/18 01:34 Dose: 100 mls/hr Documented by: Levofloxacin/Dextrose (Levaquin 250mg/50ml) 250 mg in 50 mls @ 50 mls/hr IV Q48H [facility] Stop: 11/08/18 14:59 Last Admin: 11/05/18 18:33 Dose: Not Given Documented by: Insulin Glargine (Lantus) 15 units SUB-Q QHS [facility] Insulin Glargine (Lantus) 5 units SUB-Q ONCE ONE Stop: 11/06/18 13:01 Insulin Human Lispro (Humalog) 0 unit SUB-Q Q4H [facility]; Protocol Last Admin: 11/06/18 08:53 Dose: 3 unit Documented by: Sodium Chloride (Sodium Chloride Flush Syringe 10 Ml) 10 ml IV BID [facility] Last Admin: 11/06/18 09:01 Dose: 10 ml Documented by: Sodium Chloride (Sodium Chloride Flush Syringe 10 Ml) 10 ml IV PRN PRN PRN Reason: LINE FLUSH Review of Systems ROS unobtainable: due to mental status Physical Examination - Physical Exam Narrative exam: Constitutional: Intubated, non-responsive Head, Ears, Nose: Normocephalic, atraumatic. External ears, nose normal Eyes: Conjunctivae/corneas clear. No icterus. No ptosis. Neck: Supple, no meningeal signs Oral: Intubated Cardiovascular: S1, S2 normal. Normal rhythm Respiratory: Good air entry, clear to auscultation bilaterally GI: Soft, non-tender; bowel sounds normal. No peritoneal signs Musculoskeletal: No pedal edema, Skin: No rash or abscess. Abrasion L elbow, no obvious cellulitis Hem/Lymphatic: No palpable cervical or supraclavicular nodes. No lymphangitis Psych: no agitation Neurological: Non-responsive - Constitutional Vitals: Vital Signs Temp Pulse Resp BP Pulse Ox 100.5 F H 106 H 19 114/59 100 11/06/18 08:00 11/06/18 09:31 11/06/18 09:31 11/06/18 09:31 11/06/18 09:31 Temperature -Last 24 Hours Temperature 100.5 F Temperature 99.3 F Temperature 99.9 F Temperature 99.4 F Temperature 98.9 F Temperature 98.9 F Temperature 97.5 F Results - Labs CBC & Chem 7: 11/06/18 04:50 11/06/18 07:50 Labs: Abnormal lab results 11/04/18 11/04/18 11/05/18 Range/Units 16:48 19:40 00:09 Hgb (11.8-15.2) gm/dl Hct (35.5-45.6) % Plt Count (140-440) K/mm3 POC ABG pCO2 (35-45) Sodium 163 H* (137-145) mmol/L Chloride 127.5 H (98-107) mmol/L BUN 117 H (9-20) mg/dL Creatinine 3.3 H (0.8-1.5) mg/dL Glucose 235 H (75-100) mg/dL POC Glucose > 500 H 458 H (70-105) Calcium 6.8 L (8.4-10.2) mg/dL AST (5-40) units/L C-Reactive Protein (0.00-1.30) mg/dL Total Protein (6.3-8.2) g/dL Albumin (3.9-5) g/dL Salicylates (2.8-20.0) mg/dL Acetaminophen (10.0-30.0) ug/mL 11/05/18 11/05/18 11/05/18 Range/Units 03:52 12:37 13:24 Hgb (11.8-15.2) gm/dl Hct (35.5-45.6) % Plt Count (140-440) K/mm3 POC ABG pCO2 (35-45) Sodium 169 H* (137-145) mmol/L Chloride 126.2 H (98-107) mmol/L BUN 156 H (9-20) mg/dL Creatinine 4.7 H (0.8-1.5) mg/dL Glucose 128 H (75-100) mg/dL POC Glucose 145 H 137 H (70-105) Calcium 6.3 L (8.4-10.2) mg/dL AST (5-40) units/L C-Reactive Protein (0.00-1.30) mg/dL Total Protein (6.3-8.2) g/dL Albumin (3.9-5) g/dL Salicylates (2.8-20.0) mg/dL Acetaminophen (10.0-30.0) ug/mL 11/05/18 11/05/18 11/05/18 Range/Units 13:47 14:42 16:55 Hgb (11.8-15.2) gm/dl Hct (35.5-45.6) % Plt Count (140-440) K/mm3 POC ABG pCO2 (35-45) Sodium 167 H* (137-145) mmol/L Chloride 131.6 H (98-107) mmol/L BUN 130 H (9-20) mg/dL Creatinine 3.8 H (0.8-1.5) mg/dL Glucose 136 H (75-100) mg/dL POC Glucose 133 H 194 H (70-105) Calcium 6.4 L (8.4-10.2) mg/dL AST (5-40) units/L C-Reactive Protein (0.00-1.30) mg/dL Total Protein (6.3-8.2) g/dL Albumin (3.9-5) g/dL Salicylates (2.8-20.0) mg/dL Acetaminophen (10.0-30.0) ug/mL 11/05/18 11/05/18 11/05/18 Range/Units 17:08 18:14 18:35 Hgb (11.8-15.2) gm/dl Hct (35.5-45.6) % Plt Count (140-440) K/mm3 POC ABG pCO2 32.3 L (35-45) Sodium (137-145) mmol/L Chloride (98-107) mmol/L BUN (9-20) mg/dL Creatinine (0.8-1.5) mg/dL Glucose (75-100) mg/dL POC Glucose 195 H (70-105) Calcium (8.4-10.2) mg/dL AST (5-40) units/L C-Reactive Protein 19.50 H (0.00-1.30) mg/dL Total Protein (6.3-8.2) g/dL Albumin (3.9-5) g/dL Salicylates (2.8-20.0) mg/dL Acetaminophen (10.0-30.0) ug/mL 11/05/18 11/05/18 11/05/18 Range/Units 18:35 18:35 21:09 Hgb (11.8-15.2) gm/dl Hct (35.5-45.6) % Plt Count (140-440) K/mm3 POC ABG pCO2 (35-45) Sodium (137-145) mmol/L Chloride (98-107) mmol/L BUN (9-20) mg/dL Creatinine (0.8-1.5) mg/dL Glucose (75-100) mg/dL POC Glucose 250 H (70-105) Calcium (8.4-10.2) mg/dL AST (5-40) units/L C-Reactive Protein (0.00-1.30) mg/dL Total Protein (6.3-8.2) g/dL Albumin (3.9-5) g/dL Salicylates < 0.3 L (2.8-20.0) mg/dL Acetaminophen < 5.0 L (10.0-30.0) ug/mL 11/06/18 11/06/18 11/06/18 Range/Units 01:36 04:50 04:50 Hgb 11.3 L (11.8-15.2) gm/dl Hct 32.8 L D (35.5-45.6) % Plt Count 110 L (140-440) K/mm3 POC ABG pCO2 (35-45) Sodium 165 H* (137-145) mmol/L Chloride 127.4 H (98-107) mmol/L BUN 113 H (9-20) mg/dL Creatinine 3.2 H (0.8-1.5) mg/dL Glucose 208 H (75-100) mg/dL POC Glucose 289 H (70-105) Calcium 6.8 L (8.4-10.2) mg/dL AST 55 H (5-40) units/L C-Reactive Protein (0.00-1.30) mg/dL Total Protein 5.2 L D (6.3-8.2) g/dL Albumin 2.3 L (3.9-5) g/dL Salicylates (2.8-20.0) mg/dL Acetaminophen (10.0-30.0) ug/mL 11/06/18 11/06/18 11/06/18 Range/Units 04:50 05:14 07:50 Hgb (11.8-15.2) gm/dl Hct (35.5-45.6) % Plt Count (140-440) K/mm3 POC ABG pCO2 (35-45) Sodium 164 H* 161 H* (137-145) mmol/L Chloride 126.0 H (98-107) mmol/L BUN 111 H (9-20) mg/dL Creatinine 3.0 H (0.8-1.5) mg/dL Glucose 187 H (75-100) mg/dL POC Glucose 215 H (70-105) Calcium 7.0 L (8.4-10.2) mg/dL AST (5-40) units/L C-Reactive Protein (0.00-1.30) mg/dL Total Protein (6.3-8.2) g/dL Albumin (3.9-5) g/dL Salicylates (2.8-20.0) mg/dL Acetaminophen (10.0-30.0) ug/mL 11/06/18 Range/Units 08:50 Hgb (11.8-15.2) gm/dl Hct (35.5-45.6) % Plt Count (140-440) K/mm3 POC ABG pCO2 (35-45) Sodium (137-145) mmol/L Chloride (98-107) mmol/L BUN (9-20) mg/dL Creatinine (0.8-1.5) mg/dL Glucose (75-100) mg/dL POC Glucose 239 H (70-105) Calcium (8.4-10.2) mg/dL AST (5-40) units/L C-Reactive Protein (0.00-1.30) mg/dL Total Protein (6.3-8.2) g/dL Albumin (3.9-5) g/dL Salicylates (2.8-20.0) mg/dL Acetaminophen (10.0-30.0) ug/mL - Imaging and Cardiology Chest x-ray: image reviewed (Normal CXR - no airspace disease) Assessment and Plan Cultures/ID labs: Urine cultures negative Blood culture NGTD 24 hours A/P: 53 yo M PMHx diabetes found down in his apartment in DKA with metabolic encephalopathy. Febrile and leukocytosis on admission, initially concerned for UTI. 1) Sepsis - Fever and white count since resolved. Unclear etiology of sepsis as all cultures negative. Would continue the levofloxacin for now while blood cultures continue to incubate. Would not alter antibiotics at the present time as he is improving. Possible UTI, UA with pyuria but otherwise not significant. UCx negative. 2) JAVY - will continue dose-reduced levofloxacin. 3) DKA 4) Metabolic encephalopathy 5) Rhabdomylosis Recs: Continue levofloxacin 250mg q48h. Assuming white count and fever remain stable, would recommend shorter course, likely 5 days - daily CBC with diff Thank you for the consult, we will continue to follow along. Riana Fuentes MD [facility] C: [phone] O: [phone] F: [phone]
[2018-11-06] MEDS ORDERED: PEPCID PO SCH (13:00)
[2018-11-06] MEDS ORDERED: LANTUS SUB-Q ONE (13:00)
--- NOTE | 2018-11-06 13:07 | Progress Note ---
Assessment and Plan Acute hypoxemic respiratory failure, on supplemental oxygen. Severe sepsis with shock (unspecified) Diabetic ketoacidosis. Acute kidney injury, likely secondary to rhabdomyolysis. Rhabdomyolysis. Acute encephalopathy, likely toxic metabolic. Hyperkalemia. Possible urinary tract infection. Severe metabolic acidosis. Possible hypothyroidism. Leukocytosis - continue supplemental oxygen as needed to keep O2 sat's > 90% - continue free water (increased to 300 mls q4h) and D5W re: hypernatremia - get neurology consult re: AMS (I hope it does improved as azotemia and hypernatremia resolve) - continue empiric Levaquin monotherapy; de-escalate based on clinical and microbiologic data - trend CRP and lactate prn to aid clinical decision making - continue long acting insulin therapy with SSI for target BG < 180 mg/dl acutely - Azotemia improving; continue gentle hydration - avoid nephrotoxins and renally adjust all medications as needed - switch to oral thyroid hormone supplementation - trend cpk levels (trending down) - wound care per WCT - continue GI & VTE prophylaxis - begin enteral nutrition as tolerated - aspiration precautions - flu & pneumovax addressed per protocol - resume chronic disease med's per attending - prn bronchodilators with pulmonary hygiene per RT - continue enteral nutrition as tolerated - Agitation management - Prevention of delirium, maintenance of sleep-wake cycle - continue other care per attending / other consultants ... re-evaluate in am & prn CONDITION: CRITICAL PROGNOSIS: GUARDED CODE STATUS: FULL The high probability of a clinically significant, sudden or life-threatening deterioration of the [respiratory and cardiac] system(s) required my full and direct attention, intervention and personal management. The aggregate critical care time was [32] minutes without overlap. Time includes spent on; [x] Data Review and interpretation [x] Patient assessment and monitoring of vital signs [x] Documentation [x] Medication orders and management Subjective Date of service: 11/06/18 Principal diagnosis: Ac hypoxemic resp failure; Severe sepsis; DKA; JAVY; Ac encephalopathy; UTI Interval history: Patient is seen today for: Acute hypoxemic respiratory failure; Severe sepsis with shock; Diabetic ketoacidosis; Acute kidney injury; Rhabdomyolysis; Acute encephalopathy, likely toxic metabolic; Hyperkalemia; Possible urinary tract infection; Severe metabolic acidosis; Possible hypothyroidism; Leukocytosis Seen and examined at bedside; 24hour events reviewed; nursing and respiratory care staff consulted; no adverse overnight events reported to me; resting peacefully in bed; remains encephalopathic; no emesis or overt aspiration; no seizures; hypernatremia is persistent; azotemia improving; no seizures reported; neurology evaluation ongoing Objective Vital Signs - 12hr 11/06/18 11/06/18 11/06/18 01:31 02:00 02:31 Temperature Pulse Rate 101 H 105 H 106 H Pulse Rate [ From Monitor] Respiratory 25 H 26 H 22 Rate Blood Pressure 117/60 116/64 116/64 O2 Sat by Pulse 96 98 98 Oximetry 11/06/18 11/06/18 11/06/18 03:00 03:31 04:00 Temperature 99.3 F Pulse Rate 106 H 104 H 103 H Pulse Rate [ 103 H From Monitor] Respiratory 24 21 21 Rate Blood Pressure 105/62 105/62 122/62 O2 Sat by Pulse 98 99 100 Oximetry 11/06/18 11/06/18 11/06/18 04:31 05:00 05:13 Temperature Pulse Rate 99 H 101 H 101 H Pulse Rate [ From Monitor] Respiratory 21 20 21 Rate Blood Pressure 122/62 112/60 112/60 O2 Sat by Pulse 100 100 100 Oximetry 11/06/18 11/06/18 11/06/18 05:31 06:00 06:31 Temperature Pulse Rate 103 H 101 H 104 H Pulse Rate [ From Monitor] Respiratory 22 30 H 16 Rate Blood Pressure 112/60 118/66 112/60 O2 Sat by Pulse 100 98 98 Oximetry 11/06/18 11/06/18 11/06/18 07:00 07:31 08:00 Temperature 100.5 F H Pulse Rate 97 H 101 H 100 H Pulse Rate [ 107 H From Monitor] Respiratory 23 27 H 25 H Rate Blood Pressure 107/65 107/65 113/62 O2 Sat by Pulse 99 98 97 Oximetry 11/06/18 11/06/18 11/06/18 08:05 08:31 08:58 Temperature Pulse Rate 106 H Pulse Rate [ From Monitor] Respiratory 26 H Rate Blood Pressure 107/65 O2 Sat by Pulse 97 98 97 Oximetry 11/06/18 11/06/18 11/06/18 09:00 09:31 10:00 Temperature Pulse Rate 98 H 106 H 101 H Pulse Rate [ From Monitor] Respiratory 19 19 29 H Rate Blood Pressure 114/59 114/59 111/56 O2 Sat by Pulse 99 100 97 Oximetry 11/06/18 11/06/18 11/06/18 10:31 11:00 11:31 Temperature Pulse Rate 103 H 105 H 107 H Pulse Rate [ From Monitor] Respiratory 25 H 30 H 27 H Rate Blood Pressure 111/56 110/61 110/61 O2 Sat by Pulse 98 98 99 Oximetry 11/06/18 11/06/18 11/06/18 12:00 12:25 12:31 Temperature Pulse Rate 104 H 101 H Pulse Rate [ 103 H From Monitor] Respiratory 29 H 26 H Rate Blood Pressure 113/58 113/58 O2 Sat by Pulse 98 97 98 Oximetry CBC and BMP: 11/07/18 04:13 11/07/18 04:13 ABG, PT/INR, D-dimer: ABG POC ABG pH 7.432 (7.35-7.45) 11/05/18 17:08 POC ABG pCO2 32.3 (35-45) L 11/05/18 17:08 POC ABG HCO3 21.5 (22-26 mml/L) 11/05/18 17:08 POC ABG Total CO2 23 (23-27mmol/L) 11/05/18 17:08 POC ABG O2 Sat 85 11/05/18 17:08 PT/INR, D-dimer PT 15.6 Sec. (12.2-14.9) H 11/04/18 16:05 INR 1.27 (0.87-1.13) H 11/04/18 16:05 Abnormal lab findings: Abnormal Labs 11/04/18 11/04/18 11/04/18 15:23 15:35 16:05 WBC 12.6 H Hgb Hct Plt Count Seg Neuts % (Manual) 84.0 H Lymphocytes % (Manual) 1.0 L Seg Neutrophils # Man 10.6 H Lymphocytes # (Manual) 0.1 L PT INR POC ABG pCO2 VBG pH Sodium Potassium Chloride Carbon Dioxide BUN Creatinine Glucose POC Glucose > 500 H Lactic Acid Calcium Phosphorus Magnesium AST Total Creatine Kinase C-Reactive Protein Total Protein Albumin TSH Free T4 PTH Intact Urine WBC (Auto) 12.0 H Urine Creatinine Salicylates Acetaminophen 11/04/18 11/04/18 11/04/18 16:05 16:05 16:05 WBC Hgb Hct Plt Count Seg Neuts % (Manual) Lymphocytes % (Manual) Seg Neutrophils # Man Lymphocytes # (Manual) PT 15.6 H INR 1.27 H POC ABG pCO2 VBG pH Sodium 153 H Potassium 6.2 H* Chloride Carbon Dioxide 18 L BUN 200 H Creatinine 6.8 H Glucose 1088 H* POC Glucose Lactic Acid 2.80 H* Calcium 7.2 L Phosphorus Magnesium AST Total Creatine Kinase C-Reactive Protein Total Protein Albumin 3.1 L TSH Free T4 PTH Intact Urine WBC (Auto) Urine Creatinine Salicylates Acetaminophen 11/04/18 11/04/18 11/04/18 16:05 16:05 16:05 WBC Hgb Hct Plt Count Seg Neuts % (Manual) Lymphocytes % (Manual) Seg Neutrophils # Man Lymphocytes # (Manual) PT INR POC ABG pCO2 VBG pH 7.245 L Sodium Potassium Chloride Carbon Dioxide BUN Creatinine Glucose POC Glucose Lactic Acid Calcium Phosphorus 13.80 H Magnesium 3.60 H AST Total Creatine Kinase C-Reactive Protein Total Protein Albumin TSH 0.169 L Free T4 0.68 L PTH Intact Urine WBC (Auto) Urine Creatinine Salicylates Acetaminophen 11/04/18 11/04/18 11/04/18 16:05 16:48 19:40 WBC Hgb Hct Plt Count Seg Neuts % (Manual) Lymphocytes % (Manual) Seg Neutrophils # Man Lymphocytes # (Manual) PT INR POC ABG pCO2 VBG pH Sodium Potassium Chloride Carbon Dioxide BUN Creatinine Glucose POC Glucose > 500 H 458 H Lactic Acid Calcium Phosphorus Magnesium AST Total Creatine Kinase 1857 H C-Reactive Protein Total Protein Albumin TSH Free T4 PTH Intact Urine WBC (Auto) Urine Creatinine Salicylates Acetaminophen 11/04/18 11/04/18 11/04/18 20:29 20:29 20:29 WBC Hgb Hct Plt Count Seg Neuts % (Manual) Lymphocytes % (Manual) Seg Neutrophils # Man Lymphocytes # (Manual) PT INR POC ABG pCO2 VBG pH Sodium 163 H* D Potassium Chloride 121.4 H Carbon Dioxide 21 L BUN 166 H Creatinine 5.6 H Glucose 513 H* POC Glucose Lactic Acid 3.30 H* 3.30 H* Calcium 6.4 L Phosphorus Magnesium AST Total Creatine Kinase C-Reactive Protein Total Protein Albumin TSH Free T4 PTH Intact Urine WBC (Auto) Urine Creatinine Salicylates Acetaminophen 11/04/18 11/04/18 11/04/18 20:55 21:03 22:00 WBC Hgb Hct Plt Count Seg Neuts % (Manual) Lymphocytes % (Manual) Seg Neutrophils # Man Lymphocytes # (Manual) PT INR POC ABG pCO2 VBG pH Sodium Potassium Chloride Carbon Dioxide BUN Creatinine Glucose POC Glucose 496 H Lactic Acid 3.60 H* Calcium Phosphorus Magnesium AST Total Creatine Kinase C-Reactive Protein Total Protein Albumin TSH Free T4 PTH Intact Urine WBC (Auto) Urine Creatinine 58.1 H Salicylates Acetaminophen 11/04/18 11/04/18 11/04/18 22:04 23:07 23:47 WBC Hgb Hct Plt Count Seg Neuts % (Manual) Lymphocytes % (Manual) Seg Neutrophils # Man Lymphocytes # (Manual) PT INR POC ABG pCO2 VBG pH Sodium 170 H* Potassium Chloride 127.1 H Carbon Dioxide BUN 164 H Creatinine 5.2 H Glucose 213 H POC Glucose 357 H 306 H Lactic Acid Calcium 6.5 L Phosphorus Magnesium AST Total Creatine Kinase C-Reactive Protein Total Protein Albumin TSH Free T4 PTH Intact Urine WBC (Auto) Urine Creatinine Salicylates Acetaminophen 11/04/18 11/05/18 11/05/18 23:47 00:04 00:09 WBC Hgb Hct Plt Count Seg Neuts % (Manual) Lymphocytes % (Manual) Seg Neutrophils # Man Lymphocytes # (Manual) PT INR POC ABG pCO2 VBG pH Sodium 163 H* Potassium Chloride 127.5 H Carbon Dioxide BUN 117 H Creatinine 3.3 H Glucose 235 H POC Glucose 219 H Lactic Acid 3.20 H* Calcium 6.8 L Phosphorus Magnesium AST Total Creatine Kinase C-Reactive Protein Total Protein Albumin TSH Free T4 PTH Intact Urine WBC (Auto) Urine Creatinine Salicylates Acetaminophen 11/05/18 11/05/18 11/05/18 00:59 03:13 03:52 WBC Hgb Hct Plt Count Seg Neuts % (Manual) Lymphocytes % (Manual) Seg Neutrophils # Man Lymphocytes # (Manual) PT INR POC ABG pCO2 VBG pH Sodium Potassium Chloride Carbon Dioxide BUN Creatinine Glucose POC Glucose 204 H 124 H Lactic Acid Calcium Phosphorus Magnesium AST Total Creatine Kinase 1680 H C-Reactive Protein Total Protein Albumin TSH Free T4 PTH Intact Urine WBC (Auto) Urine Creatinine Salicylates Acetaminophen 11/05/18 11/05/18 11/05/18 03:52 04:25 05:11 WBC Hgb Hct Plt Count Seg Neuts % (Manual) Lymphocytes % (Manual) Seg Neutrophils # Man Lymphocytes # (Manual) PT INR POC ABG pCO2 VBG pH Sodium 169 H* Potassium Chloride 126.2 H Carbon Dioxide BUN 156 H Creatinine 4.7 H Glucose 128 H POC Glucose 150 H 173 H Lactic Acid Calcium 6.3 L Phosphorus Magnesium AST Total Creatine Kinase C-Reactive Protein Total Protein Albumin TSH Free T4 PTH Intact Urine WBC (Auto) Urine Creatinine Salicylates Acetaminophen 11/05/18 11/05/18 11/05/18 06:05 06:58 07:48 WBC Hgb Hct Plt Count Seg Neuts % (Manual) Lymphocytes % (Manual) Seg Neutrophils # Man Lymphocytes # (Manual) PT INR POC ABG pCO2 VBG pH Sodium Potassium Chloride Carbon Dioxide BUN Creatinine Glucose POC Glucose 136 H 152 H 177 H Lactic Acid Calcium Phosphorus Magnesium AST Total Creatine Kinase C-Reactive Protein Total Protein Albumin TSH Free T4 PTH Intact Urine WBC (Auto) Urine Creatinine Salicylates Acetaminophen 11/05/18 11/05/18 11/05/18 08:21 08:21 08:23 WBC Hgb Hct Plt Count Seg Neuts % (Manual) Lymphocytes % (Manual) Seg Neutrophils # Man Lymphocytes # (Manual) PT INR POC ABG pCO2 VBG pH Sodium 171 H* Potassium Chloride 128.9 H Carbon Dioxide BUN 149 H Creatinine 4.5 H Glucose 159 H POC Glucose 157 H Lactic Acid Calcium 6.7 L Phosphorus Magnesium AST Total Creatine Kinase C-Reactive Protein Total Protein Albumin TSH Free T4 PTH Intact 119.3 H Urine WBC (Auto) Urine Creatinine Salicylates Acetaminophen 11/05/18 11/05/18 11/05/18 10:21 11:12 12:37 WBC Hgb Hct Plt Count Seg Neuts % (Manual) Lymphocytes % (Manual) Seg Neutrophils # Man Lymphocytes # (Manual) PT INR POC ABG pCO2 VBG pH Sodium Potassium Chloride Carbon Dioxide BUN Creatinine Glucose POC Glucose 171 H 155 H 145 H Lactic Acid Calcium Phosphorus Magnesium AST Total Creatine Kinase C-Reactive Protein Total Protein Albumin TSH Free T4 PTH Intact Urine WBC (Auto) Urine Creatinine Salicylates Acetaminophen 11/05/18 11/05/18 11/05/18 13:24 13:47 14:42 WBC Hgb Hct Plt Count Seg Neuts % (Manual) Lymphocytes % (Manual) Seg Neutrophils # Man Lymphocytes # (Manual) PT INR POC ABG pCO2 VBG pH Sodium 167 H* Potassium Chloride 131.6 H Carbon Dioxide BUN 130 H Creatinine 3.8 H Glucose 136 H POC Glucose 137 H 133 H Lactic Acid Calcium 6.4 L Phosphorus Magnesium AST Total Creatine Kinase C-Reactive Protein Total Protein Albumin TSH Free T4 PTH Intact Urine WBC (Auto) Urine Creatinine Salicylates Acetaminophen 11/05/18 11/05/18 11/05/18 16:55 17:08 18:14 WBC Hgb Hct Plt Count Seg Neuts % (Manual) Lymphocytes % (Manual) Seg Neutrophils # Man Lymphocytes # (Manual) PT INR POC ABG pCO2 32.3 L VBG pH Sodium Potassium Chloride Carbon Dioxide BUN Creatinine Glucose POC Glucose 194 H 195 H Lactic Acid Calcium Phosphorus Magnesium AST Total Creatine Kinase C-Reactive Protein Total Protein Albumin TSH Free T4 PTH Intact Urine WBC (Auto) Urine Creatinine Salicylates Acetaminophen 11/05/18 11/05/18 11/05/18 18:35 18:35 18:35 WBC Hgb Hct Plt Count Seg Neuts % (Manual) Lymphocytes % (Manual) Seg Neutrophils # Man Lymphocytes # (Manual) PT INR POC ABG pCO2 VBG pH Sodium Potassium Chloride Carbon Dioxide BUN Creatinine Glucose POC Glucose Lactic Acid Calcium Phosphorus Magnesium AST Total Creatine Kinase C-Reactive Protein 19.50 H Total Protein Albumin TSH Free T4 PTH Intact Urine WBC (Auto) Urine Creatinine Salicylates < 0.3 L Acetaminophen < 5.0 L 11/05/18 11/06/18 11/06/18 21:09 01:36 04:50 WBC Hgb 11.3 L Hct 32.8 L D Plt Count 110 L Seg Neuts % (Manual) Lymphocytes % (Manual) Seg Neutrophils # Man Lymphocytes # (Manual) PT INR POC ABG pCO2 VBG pH Sodium Potassium Chloride Carbon Dioxide BUN Creatinine Glucose POC Glucose 250 H 289 H Lactic Acid Calcium Phosphorus Magnesium AST Total Creatine Kinase C-Reactive Protein Total Protein Albumin TSH Free T4 PTH Intact Urine WBC (Auto) Urine Creatinine Salicylates Acetaminophen 11/06/18 11/06/18 11/06/18 04:50 04:50 05:14 WBC Hgb Hct Plt Count Seg Neuts % (Manual) Lymphocytes % (Manual) Seg Neutrophils # Man Lymphocytes # (Manual) PT INR POC ABG pCO2 VBG pH Sodium 165 H* 164 H* Potassium Chloride 127.4 H Carbon Dioxide BUN 113 H Creatinine 3.2 H Glucose 208 H POC Glucose 215 H Lactic Acid Calcium 6.8 L Phosphorus Magnesium AST 55 H Total Creatine Kinase C-Reactive Protein Total Protein 5.2 L D Albumin 2.3 L TSH Free T4 PTH Intact Urine WBC (Auto) Urine Creatinine Salicylates Acetaminophen 11/06/18 11/06/18 11/06/18 07:50 08:50 12:16 WBC Hgb Hct Plt Count Seg Neuts % (Manual) Lymphocytes % (Manual) Seg Neutrophils # Man Lymphocytes # (Manual) PT INR POC ABG pCO2 VBG pH Sodium 161 H* Potassium Chloride 126.0 H Carbon Dioxide BUN 111 H Creatinine 3.0 H Glucose 187 H POC Glucose 239 H 198 H Lactic Acid Calcium 7.0 L Phosphorus Magnesium AST Total Creatine Kinase C-Reactive Protein Total Protein Albumin TSH Free T4 PTH Intact Urine WBC (Auto) Urine Creatinine Salicylates Acetaminophen
--- NOTE | 2018-11-06 15:14 | Consultation ---
PULMONARY CRITICAL CARE CONSULTATION CONSULTING PHYSICIAN: Dr. Meza. REASON FOR CONSULTATION: Diabetic ketoacidosis and severe sepsis with shock. CHIEF COMPLAINT AND HISTORY OF PRESENT ILLNESS: The patient is a 53-year-old -[place] male with past medical history significant for a diagnosis of diabetes, brought into the Emergency Room for evaluation. He was stuporous at the time he showed up, unable to provide history. He was last seen by family about 5 days prior to presentation. He was in his usual state of health at that time. Law enforcement were called after they were unable to open his door. They gained entry. He was found down, unresponsive, lying on the kitchen floor, covered in fecal matter. They found him with elevated serum glucose and in respiratory distress. In the ED, he was diagnosed with diabetic ketoacidosis, sepsis also presumed secondary to urinary tract infection. He also had evidence of rhabdomyolysis and acute kidney injury. He was admitted to the Intensive Care Unit on the DKA protocol on an insulin drip; however, his O2 sats have begun to drop and he has remained hypotensive despite volume boluses. When I stopped by to see him, he was lethargic, still being some element of stupor. He was responsive to touch a sternal rub. I do not have any history of vomiting since he came here. No witnessed seizures. With regards to the patient's tobacco use/abuse history, the family had denied any tobacco use. No open wounds or sores have been reported on his body. The above is as much of the history of presentation as I have. PAST MEDICAL HISTORY: Diabetes. PAST SURGICAL HISTORY: Unknown. MEDICATIONS: He was on at the time I stopped by to see him were reviewed. Pertinent medications include the following: Albuterol 2.5 mg nebulized q.3 hours p.r.n. shortness of breath. He was given free water flushes 150 mL q. 4 hours, heparin sodium 5000 units subQ q.12 hours, insulin drip was going at, I believe, 2 units per hour. Levaquin 250 mg IV q.48 hours, Levoxyl 100 mcg IV daily. ALLERGIES: No known drug allergies. DIET: Thin gentleman, acute weight loss or gain history is unknown. FAMILY AND SOCIAL HISTORY: He apparently lives in the community. According to the records; no alcohol, tobacco, or illicit drug use or abuse. He is described as being . FAMILY HISTORY: Otherwise, unknown. REVIEW OF SYSTEMS: Unobtainable secondary to the patient's medical and mental condition. Since he has been here, no gross hematochezia or melena, no gross hematuria, no hematemesis, no hemoptysis, no bloody tracheal secretions, no witnessed seizures. Review of systems is, otherwise, unobtainable. PHYSICAL EXAMINATION: VITAL SIGNS: At presentation in the Emergency Room; afebrile, temperature 97.6 degrees Fahrenheit, pulse 115, respiratory rate 26, blood pressure 109/73, O2 sats 100%, inspired oxygen concentration at that time was not recorded. His mean arterial pressures have dropped since then essentially. The last MAP I saw was down to about 62. When I stopped by to see him, again he was 89% to 90% on 4 liters nasal cannula. GENERAL: Middle-aged, -[place] male. Normocephalic, atraumatic. Resting peacefully in bed with mild hypoventilation. HEAD, EYES, EARS, NOSE, AND THROAT: He is anicteric. No conjunctival erythema. Oropharynx was dry. No thyromegaly, no gross jugular venous distention. Grossly, no palpable lymph nodes in the supraclavicular or submandibular lymph node chains. LUNGS: Auscultation of both lung ni revealed clear bilateral lung ni; however, appeared to be some basilar reduced air entry. No wheezing. HEART: Heart sounds 1 and 2 are heard at the time of my evaluation, regular rate and rhythm without overt rubs or murmurs. ABDOMEN: Soft, flat. Bowel sounds are positive, nontender. They are hypoactive. No palpable hepatosplenomegaly. EXTREMITIES: Without overt digital clubbing or cyanosis. No pedal edema. Pedal pulses are 2+ bilaterally. NEUROLOGIC: Pupils equal, round, about 3 mm, sluggishly reactive to light. Extraocular muscle movements could not be assessed. He had spontaneous movements to all extremities, but not to command. The mood and affect were flat essentially. SKIN: Normal turgor without overt cellulitis or rash. No open wounds described. LABORATORY DATA: From my review are as follows: Admission white cell count 12,600, hemoglobin 13.8, hematocrit 41.9, platelet count 160. No band forms reported. INR 1.27. Venous blood gas showed a pH of 7.25 at presentation. Serum sodium was 153, potassium 6.2, chloride 99, bicarbonate 18, BUN 200, creatinine 6.8, glucose was at 1088. Phosphorus 13.8, magnesium 3.9. CPK 1857. TSH was low at 0.169. Urinalysis shows trace leukocyte esterase, 12 white cells per high power field. Urine drug screen was negative. Liver function tests were essentially within normal limits. Serum sodium is up to 167 now. BUN is down to 130 and creatinine downs to 3.8. Blood cultures, urine cultures no growth to date. DIAGNOSTIC DATA: He had a CT scan of the cervical spine. He had a CT scan of the head. C-spine was clear on CT and the CT of the head was read as no focal mass, hemorrhage, or large infarct. He also had a portable chest x-ray done at presentation, essentially unremarkable portable chest x-ray at that time. A KUB has also been done. It shows a feeding tube possibly in the duodenum. No free air under the diaphragm. ASSESSMENT: 1. Acute hypoxemic respiratory failure, on supplemental oxygen. 2. Severe sepsis with shock. 3. Diabetic ketoacidosis. 4. Acute kidney injury, likely secondary to rhabdomyolysis. 5. Rhabdomyolysis. 6. Acute encephalopathy, likely toxic metabolic. 7. Hyperkalemia. 8. Possible urinary tract infection. 9. Severe metabolic acidosis. 10. Possible hypothyroidism. 11. Leukocytosis. PLAN: I will get a stat chest x-ray and evaluate for evidence of volume overload or maybe even large volume atelectasis. Depending on what the pH is and the ventilation, I will deploy likely empiric BiPAP therapy to support him through this initial resuscitative effort. We will continue Levaquin monotherapy for now. Lactic acid level is now within normal limit. I will get a CRP and trend with a lactic as necessary to aid clinical decision making. Diabetic ketoacidosis protocol will be continued. He is appropriately on DVT prophylaxis. I will put him on GI prophylaxis. I will increase free water flushes to 300 q.4 for the hypernatremia, which is also possibly contributing to his mental status. I will get a stat aspirin and Tylenol levels as well as alcohol levels as part of the altered mental status initial screen. Flu and pneumonia vaccination will be addressed per protocol. He will get a 500 mL volume bolus at this time. I believe Nephrology consultation has been placed. I will defer to them in terms of the acute kidney injury which appears to be prerenal. Flu and pneumonia vaccination will be addressed per protocol. Thank you very much for the consult. Dr. Meza will follow along and make further recommendations as the picture progresses/becomes clearer. He is critically ill at risk of deterioration and even risk of from cardiopulmonary system deterioration. At this time, I have spent a total of about 35 minutes of critical care time without overlap and excluding any procedural time that may be necessary. JOB# [id number] BUZZ/SONY ROBERTSON
[2018-11-06] MEDS ORDERED: SIMPLE SYRUP FEEDTUBE PRN ×2 (15:57)
[2018-11-06] MEDS ORDERED: PANCREAZE DR 10,500 UNIT FEEDTUBE PRN (15:57)
[2018-11-06] MEDS ORDERED: SODIUM BICARBONATE FEEDTUBE PRN (15:57)
[2018-11-06 16:19] LABS: Calcium 7.1 mg/dL (8.4-10.2)
--- NOTE | 2018-11-06 19:21 | Progress Note ---
Assessment and Plan 53 YO Male with DM presents to ED for evaluation. Pt is stuporous st time of my exam and unable to provide history. Pt history taken from EMS as well as ED staff. As per staff, the patient found down and unresponsive in his home. Pt last contact with family was 5 days ago. At that time the patient was in his usual state of health. A well check was conducted, and the patient was unable to answer the door. Law Enforcement was contacted, and gained entry into the home. The patient was subsequently found down, and unresponsive and lying on the kitchen floor covered in fecal matter. EMS notified, and upon arrival the patient was found to have a serum glucose above 500, and in distress. Pt transported to [facility]. Pt seen and evaluated in ED and found to have DKA, Metabolic Encephalopathy, Sepsis suspected secondary to UTI, Rhabdomyolysis, Acidosis, and Acute Kidney Injury. Pt admitted to ICU and initiated on Sepsis protocol, as well as DKA protocol. Nephrology consulted in ED. Pulmonary team consulted in ED. No further history obtainable. No prior admission for review. No medication listed at time of admission for reconciliation. Patient was then admitted and commenced on DKA protocol. Glucose 1088 on admit, now 195. BUN 200 on admit, now 98. Found to be hypernatremic with improved glycemic control. Low T4 and elevarted TSH levels - Sepsis - Fever and white count since resolved. Unclear etiology of sepsis as all cultures negative. Would continue the levofloxacin for now while blood cultures continue to incubate. Would not alter antibiotics at the present time as he is improving. Possible UTI, UA with pyuria but otherwise not significant. UCx negative. - DKA resolved. Continue with insulin therapy Accu-Check NG tube feeding - JAVY due to vasomotor nephropathy IV hydration Nephrology conuslted and following - Hypernatremia Increased free water via NG tube - Hypothyroidism Supplement thyroid - UTI will continue dose-reduced levofloxacin. Urine Cx no frowht so far - Metabolic encephalopathy Continue with treatment of underlying conditions that include, sepsis, DKA and electrolyte imbalance - Rhabdomylosis Cautious IV hydration Serial CK levels - Dark stool jovanna Hemocult iv pentaprazole Serial H/H iv hydration Type and screen GI consult - DVT and GI prophylaxis with Lovenox and omeprazole - CODE STATUS: Patient is full code - Critical care time: >30 minutes Subjective Date of service: 11/06/18 Principal diagnosis: DKA, Sepsis Interval history: Patient seen and examined. Still unresponsive. Passed dark stool per nurse. Remains afebrile. Objective - Exam Narrative Exam: Constitutional: Unrespnsive. Very Ill-looking Head: Normocephalic atraumatic Eyes: Pupils are equal round and reactive to light Nose: No enlarged turbinates, no septal deviation. Mouth: Moist mucous membranes. ON NGT feeding Neck: Supple no thyromegaly. No bruit. No JVD Heart: Regular rate and rhythm, S1-S2 normal. No rubs murmurs or gallop Lungs: Clear to auscultation bilaterally. no rales or rhonchi Abdomen: Soft, nontender. Bowel sound are present. Extremities: No edema, no cyanosis, no clubbing. skin ulcers Neuro: Alert oriented Oriented x3. No focal sensory or motor deficit. Skin: Skin ulcer in johanne lower extrmities Musculoskeletal system: No joint pain or swelling Hematological: No petechia or subcutanous hemorrhages. Immunological: No multiple septic spots on the skin Lymphatic: No generalized lymphadenopathy Psychiatry: Euthymic. Calm. - Constitutional Vitals: Vital Signs - 12hr 11/06/18 11/06/18 11/06/18 07:31 08:00 08:05 Temperature 100.5 F H Pulse Rate 101 H 100 H Pulse Rate [ 107 H From Monitor] Respiratory 27 H 25 H Rate Blood Pressure 107/65 113/62 O2 Sat by Pulse 98 97 97 Oximetry 11/06/18 11/06/18 11/06/18 08:31 08:58 09:00 Temperature Pulse Rate 106 H 98 H Pulse Rate [ From Monitor] Respiratory 26 H 19 Rate Blood Pressure 107/65 114/59 O2 Sat by Pulse 98 97 99 Oximetry 11/06/18 11/06/18 11/06/18 09:31 10:00 10:31 Temperature Pulse Rate 106 H 101 H 103 H Pulse Rate [ From Monitor] Respiratory 19 29 H 25 H Rate Blood Pressure 114/59 111/56 111/56 O2 Sat by Pulse 100 97 98 Oximetry 11/06/18 11/06/18 11/06/18 11:00 11:31 12:00 Temperature 100.5 F H Pulse Rate 105 H 107 H 104 H Pulse Rate [ 103 H From Monitor] Respiratory 30 H 27 H 29 H Rate Blood Pressure 110/61 110/61 113/58 O2 Sat by Pulse 98 99 98 Oximetry 11/06/18 11/06/18 11/06/18 12:25 12:31 13:00 Temperature Pulse Rate 101 H 107 H Pulse Rate [ From Monitor] Respiratory 26 H 25 H Rate Blood Pressure 113/58 104/59 O2 Sat by Pulse 97 98 97 Oximetry 11/06/18 11/06/18 11/06/18 13:31 14:00 14:31 Temperature Pulse Rate 107 H 104 H 111 H Pulse Rate [ From Monitor] Respiratory 26 H 26 H 27 H Rate Blood Pressure 104/59 116/64 116/64 O2 Sat by Pulse 98 98 98 Oximetry 11/06/18 11/06/18 11/06/18 15:00 15:31 16:00 Temperature 99.8 F H Pulse Rate 114 H 108 H 105 H Pulse Rate [ 99 H From Monitor] Respiratory 30 H 29 H 24 Rate Blood Pressure 103/45 103/45 117/58 O2 Sat by Pulse 96 97 97 Oximetry 11/06/18 11/06/18 11/06/18 16:31 17:00 17:31 Temperature Pulse Rate 98 H 99 H 99 H Pulse Rate [ From Monitor] Respiratory 26 H 27 H 27 H Rate Blood Pressure 103/45 111/59 117/58 O2 Sat by Pulse 97 98 96 Oximetry 11/06/18 11/06/18 11/06/18 18:00 18:31 19:00 Temperature Pulse Rate 100 H 107 H 102 H Pulse Rate [ From Monitor] Respiratory 25 H 26 H 26 H Rate Blood Pressure 120/61 120/61 110/57 O2 Sat by Pulse 98 95 98 Oximetry - Labs CBC & Chem 7: 11/06/18 04:50 11/06/18 15:42 Labs: Abnormal lab results 11/05/18 11/05/18 11/05/18 Range/Units 00:09 03:52 18:35 Hgb (11.8-15.2) gm/dl Hct (35.5-45.6) % Plt Count (140-440) K/mm3 Sodium 163 H* 169 H* (137-145) mmol/L Chloride 127.5 H 126.2 H (98-107) mmol/L BUN 117 H 156 H (9-20) mg/dL Creatinine 3.3 H 4.7 H (0.8-1.5) mg/dL Glucose 235 H 128 H (75-100) mg/dL POC Glucose (70-105) Calcium 6.8 L 6.3 L (8.4-10.2) mg/dL AST (5-40) units/L C-Reactive Protein 19.50 H (0.00-1.30) mg/dL Total Protein (6.3-8.2) g/dL Albumin (3.9-5) g/dL Salicylates (2.8-20.0) mg/dL Acetaminophen (10.0-30.0) ug/mL 11/05/18 11/05/18 11/05/18 Range/Units 18:35 18:35 21:09 Hgb (11.8-15.2) gm/dl Hct (35.5-45.6) % Plt Count (140-440) K/mm3 Sodium (137-145) mmol/L Chloride (98-107) mmol/L BUN (9-20) mg/dL Creatinine (0.8-1.5) mg/dL Glucose (75-100) mg/dL POC Glucose 250 H (70-105) Calcium (8.4-10.2) mg/dL AST (5-40) units/L C-Reactive Protein (0.00-1.30) mg/dL Total Protein (6.3-8.2) g/dL Albumin (3.9-5) g/dL Salicylates < 0.3 L (2.8-20.0) mg/dL Acetaminophen < 5.0 L (10.0-30.0) ug/mL 11/06/18 11/06/18 11/06/18 Range/Units 01:36 04:50 04:50 Hgb 11.3 L (11.8-15.2) gm/dl Hct 32.8 L D (35.5-45.6) % Plt Count 110 L (140-440) K/mm3 Sodium 165 H* (137-145) mmol/L Chloride 127.4 H (98-107) mmol/L BUN 113 H (9-20) mg/dL Creatinine 3.2 H (0.8-1.5) mg/dL Glucose 208 H (75-100) mg/dL POC Glucose 289 H (70-105) Calcium 6.8 L (8.4-10.2) mg/dL AST 55 H (5-40) units/L C-Reactive Protein (0.00-1.30) mg/dL Total Protein 5.2 L D (6.3-8.2) g/dL Albumin 2.3 L (3.9-5) g/dL Salicylates (2.8-20.0) mg/dL Acetaminophen (10.0-30.0) ug/mL 11/06/18 11/06/18 11/06/18 Range/Units 04:50 05:14 07:50 Hgb (11.8-15.2) gm/dl Hct (35.5-45.6) % Plt Count (140-440) K/mm3 Sodium 164 H* 161 H* (137-145) mmol/L Chloride 126.0 H (98-107) mmol/L BUN 111 H (9-20) mg/dL Creatinine 3.0 H (0.8-1.5) mg/dL Glucose 187 H (75-100) mg/dL POC Glucose 215 H (70-105) Calcium 7.0 L (8.4-10.2) mg/dL AST (5-40) units/L C-Reactive Protein (0.00-1.30) mg/dL Total Protein (6.3-8.2) g/dL Albumin (3.9-5) g/dL Salicylates (2.8-20.0) mg/dL Acetaminophen (10.0-30.0) ug/mL 11/06/18 11/06/18 11/06/18 Range/Units 08:50 12:16 15:42 Hgb (11.8-15.2) gm/dl Hct (35.5-45.6) % Plt Count (140-440) K/mm3 Sodium 162 H* (137-145) mmol/L Chloride 127.3 H (98-107) mmol/L BUN 98 H (9-20) mg/dL Creatinine 2.7 H (0.8-1.5) mg/dL Glucose 195 H (75-100) mg/dL POC Glucose 239 H 198 H (70-105) Calcium 7.1 L (8.4-10.2) mg/dL AST (5-40) units/L C-Reactive Protein (0.00-1.30) mg/dL Total Protein (6.3-8.2) g/dL Albumin (3.9-5) g/dL Salicylates (2.8-20.0) mg/dL Acetaminophen (10.0-30.0) ug/mL
--- NOTE | 2018-11-06 19:47 | Consultation ---
History of Present Illness Consult date: 11/06/18 Requesting physician: SALUD JOSEPH Reason for Consult: altered mental status Chief complaint: altered mental status History of present illness: This 53 year old left handed (per daughter) male was found 2 days ago in the afternoon by police office who broke in door to check on him. Found unresponsive covered in feces. Per daughter stopped using phone apps last Tuesday. Had Na 159 on admit, rising to 170 but now 162. Glucose 1088 on admit, now 195. BUN 200 on admit, now 98. Creatinine 6.8 on admit, now 2.7. CPK 1857 on admit. Daughter says there was blood and vomit in his residence. Opening eyes more today per daughter. PMH: Medical: DM, jaw problem (perhaps cancer she says but no HIV) Surgeries: ondina in left leg for sports injury many years ago. SH: occasional cigar, 3 beers per week she thinks but only sees him twice a year. No illicit drugs, , one daughter, lives alone. Was in [employer] unknown job there. 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 FH: Daughter has edema in just one foot, some hypertension she thinks but does not know who, paternal first cousin with DM, neg for epilepsy. ROS: no headaches known, [facility], sometimes snores, memory ok, no paresthesias. General Physical Exam: General appearance: well developed well nourished early 50's male with NG tube, moving head side to side a little at times, extended and rotated inward left arm spontaneously once, roving eye movements. HEENT: intact. NG tube in place. Neck: stiff, no bruits. Heart: no murmur or extra sounds. Extremities: 2+ DPs, no edema. Neurologic Exam: Mental Status: no obedience to commands, eyes are open, not tracking me. Cranial Nerves: no clear blink to threat, can't see fundi well. Right pupil 1.5 mm, left 1 mm sluggish to light on right. EOMs full to Doll's eyes, some roving horizontal EOMs. Positive corneals. Grimaces X 2 to supraorbital pressure. No gags. Cerebellar: cannot assess. Sensory: no response to pinprick except perhaps purses lips some to pinprick on lips, no response to nail bed pressure or palmar or plantar rub though perhaps turns head side to side some with palmar rub. Motor Exam Upper Extremities: decreased tone, slight decerebration to supraorbital pressure. No tongue lining stitcher to command, no thumb's up to command. Motor Exam Lower Extremities: decreased tone, no withdrawal as above. Reflexes: jaw jerk and palmomental are negative, slightly positive snout. Triceps are trace to 1, biceps and brachioradialis are trace. Knee jerks and ankle jerks are 0 without clonus. Toes are mute right and downgoing left to Babinski testing. Past History Past Medical History: diabetes Past Surgical History: No surgical history, Other (Reviewed: [facility]) Social history: . denies: smoking, alcohol abuse, prescription drug abuse Family history: no significant family history (Unknown per family in room) Medications and Allergies Allergies Allergy/AdvReac Type Severity Reaction Status Date / Time No Known Allergies Allergy Unverified 11/04/18 15:22 Home Medications Medication Instructions Recorded Confirmed Last Taken Type Glimepiride 4 mg PO BID 11/06/18 11/06/18 Unknown History HYDROcodone/ACETAMINOPHEN 5 - 325 mg PO Q4-6H PRN 11/06/18 11/06/18 Unknown History Ibuprofen 800 mg PO Q8HR PRN 11/06/18 11/06/18 Unknown History Lisinopril 2.5 mg PO DAILY 11/06/18 11/06/18 Unknown History Metformin HCl 1,000 mg PO BID 11/06/18 11/06/18 Unknown History NovoLIN N 5 unit SUB-Q BID MDD x 90days 11/06/18 11/06/18 Unknown History Pravastatin Sodium 20 mg PO BID 11/06/18 11/06/18 Unknown History glipiZIDE 10 mg PO BID 11/06/18 11/06/18 Unknown History Active Meds: Active Medications Albuterol (Proventil) 2.5 mg IH Q3H PRN PRN Reason: Shortness Of Breath Lipase/Protease/Amylase (Ting Delacruz 10,500 Unit) 1 each FEEDTUBE PRN PRN PRN Reason: For Clogged Feeding Tube Dextrose (D50w (25gm) Syringe) 0 ml IV PRN PRN PRN Reason: Hypoglycemia Famotidine (Pepcid) 20 mg PO DAILY MARIEL Last Admin: 11/06/18 13:00 Dose: 20 mg Documented by: Heparin Sodium (Porcine) (Heparin) 5,000 unit SUB-Q Q12HR MARIEL Last Admin: 11/06/18 09:00 Dose: 5,000 unit Documented by: Dextrose (D5w) 1,000 mls @ 100 mls/hr IV DIRECT MARIEL Last Admin: 11/06/18 11:40 Dose: 100 mls/hr Documented by: Levofloxacin/Dextrose (Levaquin 250mg/50ml) 250 mg in 50 mls @ 50 mls/hr IV Q48H [facility] Stop: 11/08/18 14:59 Last Admin: 11/05/18 18:33 Dose: Not Given Documented by: Insulin Glargine (Lantus) 15 units SUB-Q QHS [facility] Insulin Human Lispro (Humalog) 0 unit SUB-Q Q4H [facility]; Protocol Last Admin: 11/06/18 17:00 Dose: 3 unit Documented by: Simple Syrup (Simple Syrup) 15 ml FEEDTUBE PRN PRN PRN Reason: Hypoglycemia Simple Syrup (Simple Syrup) 30 ml FEEDTUBE PRN PRN PRN Reason: Hypoglycemia Sodium Bicarbonate (Sodium Bicarbonate) 325 mg FEEDTUBE PRN PRN PRN Reason: For Clogged Feeding Tube Sodium Chloride (Sodium Chloride Flush Syringe 10 Ml) 10 ml IV BID [facility] Last Admin: 11/06/18 09:01 Dose: 10 ml Documented by: Sodium Chloride (Sodium Chloride Flush Syringe 10 Ml) 10 ml IV PRN PRN PRN Reason: LINE FLUSH Physical Examination - Vital Signs Vital Signs: Vital Signs Pulse BP 115 H 109/73 11/04/18 15:20 11/04/18 15:20 Results - Laboratory Findings CBC and BMP: 11/06/18 04:50 11/06/18 15:42 Abnormal Lab Findings: Abnormal Labs 11/04/18 11/04/18 11/04/18 15:23 15:35 16:05 WBC 12.6 H Hgb Hct Plt Count Seg Neuts % (Manual) 84.0 H Lymphocytes % (Manual) 1.0 L Seg Neutrophils # Man 10.6 H Lymphocytes # (Manual) 0.1 L PT INR POC ABG pCO2 VBG pH Sodium Potassium Chloride Carbon Dioxide BUN Creatinine Glucose POC Glucose > 500 H Lactic Acid Calcium Phosphorus Magnesium AST Total Creatine Kinase C-Reactive Protein Total Protein Albumin TSH Free T4 PTH Intact Urine WBC (Auto) 12.0 H Urine Creatinine Salicylates Acetaminophen 11/04/18 11/04/18 11/04/18 16:05 16:05 16:05 WBC Hgb Hct Plt Count Seg Neuts % (Manual) Lymphocytes % (Manual) Seg Neutrophils # Man Lymphocytes # (Manual) PT 15.6 H INR 1.27 H POC ABG pCO2 VBG pH Sodium 153 H Potassium 6.2 H* Chloride Carbon Dioxide 18 L BUN 200 H Creatinine 6.8 H Glucose 1088 H* POC Glucose Lactic Acid 2.80 H* Calcium 7.2 L Phosphorus Magnesium AST Total Creatine Kinase C-Reactive Protein Total Protein Albumin 3.1 L TSH Free T4 PTH Intact Urine WBC (Auto) Urine Creatinine Salicylates Acetaminophen 11/04/18 11/04/18 11/04/18 16:05 16:05 16:05 WBC Hgb Hct Plt Count Seg Neuts % (Manual) Lymphocytes % (Manual) Seg Neutrophils # Man Lymphocytes # (Manual) PT INR POC ABG pCO2 VBG pH 7.245 L Sodium Potassium Chloride Carbon Dioxide BUN Creatinine Glucose POC Glucose Lactic Acid Calcium Phosphorus 13.80 H Magnesium 3.60 H AST Total Creatine Kinase C-Reactive Protein Total Protein Albumin TSH 0.169 L Free T4 0.68 L PTH Intact Urine WBC (Auto) Urine Creatinine Salicylates Acetaminophen 11/04/18 11/04/18 11/04/18 16:05 16:48 19:40 WBC Hgb Hct Plt Count Seg Neuts % (Manual) Lymphocytes % (Manual) Seg Neutrophils # Man Lymphocytes # (Manual) PT INR POC ABG pCO2 VBG pH Sodium Potassium Chloride Carbon Dioxide BUN Creatinine Glucose POC Glucose > 500 H 458 H Lactic Acid Calcium Phosphorus Magnesium AST Total Creatine Kinase 1857 H C-Reactive Protein Total Protein Albumin TSH Free T4 PTH Intact Urine WBC (Auto) Urine Creatinine Salicylates Acetaminophen 11/04/18 11/04/18 11/04/18 20:29 20:29 20:29 WBC Hgb Hct Plt Count Seg Neuts % (Manual) Lymphocytes % (Manual) Seg Neutrophils # Man Lymphocytes # (Manual) PT INR POC ABG pCO2 VBG pH Sodium 163 H* D Potassium Chloride 121.4 H Carbon Dioxide 21 L BUN 166 H Creatinine 5.6 H Glucose 513 H* POC Glucose Lactic Acid 3.30 H* 3.30 H* Calcium 6.4 L Phosphorus Magnesium AST Total Creatine Kinase C-Reactive Protein Total Protein Albumin TSH Free T4 PTH Intact Urine WBC (Auto) Urine Creatinine Salicylates Acetaminophen 11/04/18 11/04/18 11/04/18 20:55 21:03 22:00 WBC Hgb Hct Plt Count Seg Neuts % (Manual) Lymphocytes % (Manual) Seg Neutrophils # Man Lymphocytes # (Manual) PT INR POC ABG pCO2 VBG pH Sodium Potassium Chloride Carbon Dioxide BUN Creatinine Glucose POC Glucose 496 H Lactic Acid 3.60 H* Calcium Phosphorus Magnesium AST Total Creatine Kinase C-Reactive Protein Total Protein Albumin TSH Free T4 PTH Intact Urine WBC (Auto) Urine Creatinine 58.1 H Salicylates Acetaminophen 11/04/18 11/04/18 11/04/18 22:04 23:07 23:47 WBC Hgb Hct Plt Count Seg Neuts % (Manual) Lymphocytes % (Manual) Seg Neutrophils # Man Lymphocytes # (Manual) PT INR POC ABG pCO2 VBG pH Sodium 170 H* Potassium Chloride 127.1 H Carbon Dioxide BUN 164 H Creatinine 5.2 H Glucose 213 H POC Glucose 357 H 306 H Lactic Acid Calcium 6.5 L Phosphorus Magnesium AST Total Creatine Kinase C-Reactive Protein Total Protein Albumin TSH Free T4 PTH Intact Urine WBC (Auto) Urine Creatinine Salicylates Acetaminophen 11/04/18 11/05/18 11/05/18 23:47 00:04 00:09 WBC Hgb Hct Plt Count Seg Neuts % (Manual) Lymphocytes % (Manual) Seg Neutrophils # Man Lymphocytes # (Manual) PT INR POC ABG pCO2 VBG pH Sodium 163 H* Potassium Chloride 127.5 H Carbon Dioxide BUN 117 H Creatinine 3.3 H Glucose 235 H POC Glucose 219 H Lactic Acid 3.20 H* Calcium 6.8 L Phosphorus Magnesium AST Total Creatine Kinase C-Reactive Protein Total Protein Albumin TSH Free T4 PTH Intact Urine WBC (Auto) Urine Creatinine Salicylates Acetaminophen 11/05/18 11/05/18 11/05/18 00:59 03:13 03:52 WBC Hgb Hct Plt Count Seg Neuts % (Manual) Lymphocytes % (Manual) Seg Neutrophils # Man Lymphocytes # (Manual) PT INR POC ABG pCO2 VBG pH Sodium Potassium Chloride Carbon Dioxide BUN Creatinine Glucose POC Glucose 204 H 124 H Lactic Acid Calcium Phosphorus Magnesium AST Total Creatine Kinase 1680 H C-Reactive Protein Total Protein Albumin TSH Free T4 PTH Intact Urine WBC (Auto) Urine Creatinine Salicylates Acetaminophen 11/05/18 11/05/18 11/05/18 03:52 04:25 05:11 WBC Hgb Hct Plt Count Seg Neuts % (Manual) Lymphocytes % (Manual) Seg Neutrophils # Man Lymphocytes # (Manual) PT INR POC ABG pCO2 VBG pH Sodium 169 H* Potassium Chloride 126.2 H Carbon Dioxide BUN 156 H Creatinine 4.7 H Glucose 128 H POC Glucose 150 H 173 H Lactic Acid Calcium 6.3 L Phosphorus Magnesium AST Total Creatine Kinase C-Reactive Protein Total Protein Albumin TSH Free T4 PTH Intact Urine WBC (Auto) Urine Creatinine Salicylates Acetaminophen 11/05/18 11/05/18 11/05/18 06:05 06:58 07:48 WBC Hgb Hct Plt Count Seg Neuts % (Manual) Lymphocytes % (Manual) Seg Neutrophils # Man Lymphocytes # (Manual) PT INR POC ABG pCO2 VBG pH Sodium Potassium Chloride Carbon Dioxide BUN Creatinine Glucose POC Glucose 136 H 152 H 177 H Lactic Acid Calcium Phosphorus Magnesium AST Total Creatine Kinase C-Reactive Protein Total Protein Albumin TSH Free T4 PTH Intact Urine WBC (Auto) Urine Creatinine Salicylates Acetaminophen 11/05/18 11/05/18 11/05/18 08:21 08:21 08:23 WBC Hgb Hct Plt Count Seg Neuts % (Manual) Lymphocytes % (Manual) Seg Neutrophils # Man Lymphocytes # (Manual) PT INR POC ABG pCO2 VBG pH Sodium 171 H* Potassium Chloride 128.9 H Carbon Dioxide BUN 149 H Creatinine 4.5 H Glucose 159 H POC Glucose 157 H Lactic Acid Calcium 6.7 L Phosphorus Magnesium AST Total Creatine Kinase C-Reactive Protein Total Protein Albumin TSH Free T4 PTH Intact 119.3 H Urine WBC (Auto) Urine Creatinine Salicylates Acetaminophen 11/05/18 11/05/18 11/05/18 10:21 11:12 12:37 WBC Hgb Hct Plt Count Seg Neuts % (Manual) Lymphocytes % (Manual) Seg Neutrophils # Man Lymphocytes # (Manual) PT INR POC ABG pCO2 VBG pH Sodium Potassium Chloride Carbon Dioxide BUN Creatinine Glucose POC Glucose 171 H 155 H 145 H Lactic Acid Calcium Phosphorus Magnesium AST Total Creatine Kinase C-Reactive Protein Total Protein Albumin TSH Free T4 PTH Intact Urine WBC (Auto) Urine Creatinine Salicylates Acetaminophen 11/05/18 11/05/18 11/05/18 13:24 13:47 14:42 WBC Hgb Hct Plt Count Seg Neuts % (Manual) Lymphocytes % (Manual) Seg Neutrophils # Man Lymphocytes # (Manual) PT INR POC ABG pCO2 VBG pH Sodium 167 H* Potassium Chloride 131.6 H Carbon Dioxide BUN 130 H Creatinine 3.8 H Glucose 136 H POC Glucose 137 H 133 H Lactic Acid Calcium 6.4 L Phosphorus Magnesium AST Total Creatine Kinase C-Reactive Protein Total Protein Albumin TSH Free T4 PTH Intact Urine WBC (Auto) Urine Creatinine Salicylates Acetaminophen 11/05/18 11/05/18 11/05/18 16:55 17:08 18:14 WBC Hgb Hct Plt Count Seg Neuts % (Manual) Lymphocytes % (Manual) Seg Neutrophils # Man Lymphocytes # (Manual) PT INR POC ABG pCO2 32.3 L VBG pH Sodium Potassium Chloride Carbon Dioxide BUN Creatinine Glucose POC Glucose 194 H 195 H Lactic Acid Calcium Phosphorus Magnesium AST Total Creatine Kinase C-Reactive Protein Total Protein Albumin TSH Free T4 PTH Intact Urine WBC (Auto) Urine Creatinine Salicylates Acetaminophen 11/05/18 11/05/18 11/05/18 18:35 18:35 18:35 WBC Hgb Hct Plt Count Seg Neuts % (Manual) Lymphocytes % (Manual) Seg Neutrophils # Man Lymphocytes # (Manual) PT INR POC ABG pCO2 VBG pH Sodium Potassium Chloride Carbon Dioxide BUN Creatinine Glucose POC Glucose Lactic Acid Calcium Phosphorus Magnesium AST Total Creatine Kinase C-Reactive Protein 19.50 H Total Protein Albumin TSH Free T4 PTH Intact Urine WBC (Auto) Urine Creatinine Salicylates < 0.3 L Acetaminophen < 5.0 L 11/05/18 11/06/18 11/06/18 21:09 01:36 04:50 WBC Hgb 11.3 L Hct 32.8 L D Plt Count 110 L Seg Neuts % (Manual) Lymphocytes % (Manual) Seg Neutrophils # Man Lymphocytes # (Manual) PT INR POC ABG pCO2 VBG pH Sodium Potassium Chloride Carbon Dioxide BUN Creatinine Glucose POC Glucose 250 H 289 H Lactic Acid Calcium Phosphorus Magnesium AST Total Creatine Kinase C-Reactive Protein Total Protein Albumin TSH Free T4 PTH Intact Urine WBC (Auto) Urine Creatinine Salicylates Acetaminophen 11/06/18 11/06/18 11/06/18 04:50 04:50 05:14 WBC Hgb Hct Plt Count Seg Neuts % (Manual) Lymphocytes % (Manual) Seg Neutrophils # Man Lymphocytes # (Manual) PT INR POC ABG pCO2 VBG pH Sodium 165 H* 164 H* Potassium Chloride 127.4 H Carbon Dioxide BUN 113 H Creatinine 3.2 H Glucose 208 H POC Glucose 215 H Lactic Acid Calcium 6.8 L Phosphorus Magnesium AST 55 H Total Creatine Kinase C-Reactive Protein Total Protein 5.2 L D Albumin 2.3 L TSH Free T4 PTH Intact Urine WBC (Auto) Urine Creatinine Salicylates Acetaminophen 11/06/18 11/06/18 11/06/18 07:50 08:50 12:16 WBC Hgb Hct Plt Count Seg Neuts % (Manual) Lymphocytes % (Manual) Seg Neutrophils # Man Lymphocytes # (Manual) PT INR POC ABG pCO2 VBG pH Sodium 161 H* Potassium Chloride 126.0 H Carbon Dioxide BUN 111 H Creatinine 3.0 H Glucose 187 H POC Glucose 239 H 198 H Lactic Acid Calcium 7.0 L Phosphorus Magnesium AST Total Creatine Kinase C-Reactive Protein Total Protein Albumin TSH Free T4 PTH Intact Urine WBC (Auto) Urine Creatinine Salicylates Acetaminophen 11/06/18 15:42 WBC Hgb Hct Plt Count Seg Neuts % (Manual) Lymphocytes % (Manual) Seg Neutrophils # Man Lymphocytes # (Manual) PT INR POC ABG pCO2 VBG pH Sodium 162 H* Potassium Chloride 127.3 H Carbon Dioxide BUN 98 H Creatinine 2.7 H Glucose 195 H POC Glucose Lactic Acid Calcium 7.1 L Phosphorus Magnesium AST Total Creatine Kinase C-Reactive Protein Total Protein Albumin TSH Free T4 PTH Intact Urine WBC (Auto) Urine Creatinine Salicylates Acetaminophen Assessment and Plan Impression: 1. Hypernatremia 2. Rhabdomyolysis 3. Metabolic encephalopathy Plan: 1. If not improving mental status tomorrow or whenever Na gets down to 154 or lower, should order noncontrast brain MRI. 2. Told his daughter he likely will improve as his lab numbers improve. 40 min critical care time spent. Thanks for an interesting consultation on this unfortunate early 50's male.
[2018-11-06] MEDS: PROTONIX IV SCH (21:36)
[2018-11-06] MEDS ORDERED: LANTUS SUB-Q SCH (22:00)
[2018-11-06 22:10] LABS: Hematocrit 33.4 % (35.5-45.6)
[2018-11-07] MEDS: HumaLOG SUB-Q SCH ×6 (02:14→21:24)
[2018-11-07 04:53] LABS: Hematocrit 33.8 % (35.5-45.6); Hemoglobin 11.4 gm/dl (11.8-15.2); Mean Corpuscular HGB Conc 34 % (32-34); Mean Corpuscular Volume 91 fl (84-94); Platelet Count 103 K/mm3 (140-440); Red Blood Count 3.73 M/mm3 (3.65-5.03); Red Cell Distribution Width 14.8 % (13.2-15.2)
[2018-11-07 05:25] LABS: Calcium 7.4 mg/dL (8.4-10.2)
[2018-11-07 05:50] LABS: Band Neutrophils # (Manual) 0.3 K/mm3; Basophils % (Manual) 0 % (0.0-1.8); Dohle Bodies 1+; Total Cells Counted 100
[2018-11-07 05:51] LABS: Platelet Estimate Consistent w Auto; RBC Morphology Normal
[2018-11-07] MEDS: D5W 1,000 ML IV SCH ×3 (06:38→21:15)
--- NOTE | 2018-11-07 09:31 | Progress Note ---
Assessment and Plan 53 YO Male with DM presents to ED for evaluation. Pt is stuporous st time of my exam and unable to provide history. Pt history taken from EMS as well as ED staff. As per staff, the patient found down and unresponsive in his home. Pt last contact with family was 5 days ago. At that time the patient was in his usual state of health. A well check was conducted, and the patient was unable to answer the door. Law Enforcement was contacted, and gained entry into the home. The patient was subsequently found down, and unresponsive and lying on the kitchen floor covered in fecal matter. EMS notified, and upon arrival the patient was found to have a serum glucose above 500, and in distress. Pt transported to [facility]. Pt seen and evaluated in ED and found to have DKA, Metabolic Encephalopathy, Sepsis suspected secondary to UTI, Rhabdomyolysis, Acidosis, and Acute Kidney Injury. Pt admitted to ICU and initiated on Sepsis protocol, as well as DKA protocol. Nephrology consulted in ED. Pulmonary team consulted in ED. No further history obtainable. No prior admission for review. No medication listed at time of admission for reconciliation. Patient was then admitted and commenced on DKA protocol. Glucose 1088 on admit, now 195. BUN 200 on admit, now 98. Found to be hypernatremic with improved glycemic control. Low T4 and elevarted TSH levels - Sepsis - Fever and white count since resolved. Unclear etiology of sepsis as all cultures negative. Would continue the levofloxacin for now while blood cultures continue to incubate. Would not alter antibiotics at the present time as he is improving. Possible UTI, UA with pyuria but otherwise not significant. UCx negative. - DKA resolved. Continue with insulin therapy Accu-Check NG tube feeding - JAVY due to vasomotor nephropathy IV hydration Nephrology conuslted and following - Hypernatremia Increased free water via NG tube - Hypothyroidism Supplement thyroid - UTI will continue dose-reduced levofloxacin. Urine Cx no growth so far - Metabolic encephalopathy - improving able to open to voice command today Continue with treatment of underlying conditions that include, sepsis, DKA and electrolyte imbalance - Rhabdomylosis Cautious IV hydration Serial CK levels - Dark stool - none today stool Hemocult iv pentaprazole Serial H/H iv hydration Type and screen GI consult - DVT and GI prophylaxis with Lovenox and omeprazole - CODE STATUS: Patient is full code - Critical care time: >30 minutes Subjective Date of service: 11/07/18 Principal diagnosis: DKA, Sepsis, metabolic encephalopathy Interval history: Patient seen and examined. Stuporous. Remains afebrile. Objective - Exam Narrative Exam: Constitutional: Unrespnsive. Very Ill-looking Head: Normocephalic atraumatic Eyes: Pupils are equal round and reactive to light Nose: No enlarged turbinates, no septal deviation. Mouth: Moist mucous membranes. ON NGT feeding Neck: Supple no thyromegaly. No bruit. No JVD Heart: Regular rate and rhythm, S1-S2 normal. No rubs murmurs or gallop Lungs: Clear to auscultation bilaterally. no rales or rhonchi Abdomen: Soft, nontender. Bowel sound are present. Extremities: No edema, no cyanosis, no clubbing. skin ulcers Neuro: Unresponsive Skin: Skin ulcer in the lower extrmities Musculoskeletal system: No joint pain or swelling Hematological: No petechia or subcutanous hemorrhages. Immunological: No multiple septic spots on the skin Lymphatic: No generalized lymphadenopathy Psychiatry: unresponsive. - Constitutional Vitals: Vital Signs - 12hr 11/06/18 11/06/18 11/06/18 21:31 22:00 22:31 Temperature Pulse Rate 101 H 95 H 97 H Pulse Rate [ From Monitor] Respiratory 25 H 23 27 H Rate Blood Pressure 114/62 125/65 109/61 O2 Sat by Pulse 98 97 99 Oximetry 11/06/18 11/06/18 11/06/18 22:39 23:00 23:20 Temperature 99.4 F Pulse Rate 97 H 102 H Pulse Rate [ From Monitor] Respiratory 28 H 30 H Rate Blood Pressure 109/61 116/65 O2 Sat by Pulse 99 99 Oximetry 11/06/18 11/07/18 11/07/18 23:31 00:00 00:31 Temperature Pulse Rate 97 H 100 H 96 H Pulse Rate [ 100 H From Monitor] Respiratory 28 H 24 29 H Rate Blood Pressure 116/65 110/60 110/60 O2 Sat by Pulse 100 99 99 Oximetry 11/07/18 11/07/18 11/07/18 00:43 01:00 01:30 Temperature Pulse Rate 100 H 95 H 97 H Pulse Rate [ From Monitor] Respiratory 27 H 24 27 H Rate Blood Pressure 110/60 110/59 110/59 O2 Sat by Pulse 100 99 98 Oximetry 11/07/18 11/07/18 11/07/18 02:00 02:30 02:38 Temperature 102.5 F H Pulse Rate 96 H 94 H Pulse Rate [ From Monitor] Respiratory 19 26 H Rate Blood Pressure 118/61 118/61 O2 Sat by Pulse 97 97 Oximetry 11/07/18 11/07/18 11/07/18 03:00 03:30 04:00 Temperature 99 F Pulse Rate 94 H 93 H 98 H Pulse Rate [ 98 H From Monitor] Respiratory 24 26 H 18 Rate Blood Pressure 113/59 113/59 120/63 O2 Sat by Pulse 98 98 98 Oximetry 11/07/18 11/07/18 11/07/18 04:30 05:00 05:30 Temperature Pulse Rate 90 94 H 89 Pulse Rate [ From Monitor] Respiratory 22 20 25 H Rate Blood Pressure 120/63 124/64 124/64 O2 Sat by Pulse 100 100 100 Oximetry 11/07/18 11/07/18 11/07/18 05:46 06:00 06:30 Temperature Pulse Rate 90 95 H 92 H Pulse Rate [ From Monitor] Respiratory 24 23 20 Rate Blood Pressure 124/64 116/61 124/64 O2 Sat by Pulse 100 100 100 Oximetry 11/07/18 11/07/18 11/07/18 07:00 07:30 08:00 Temperature 99.0 F Pulse Rate 90 93 H 105 H Pulse Rate [ 104 H From Monitor] Respiratory 23 24 25 H Rate Blood Pressure 112/55 112/55 125/63 O2 Sat by Pulse 100 100 100 Oximetry 11/07/18 11/07/18 08:03 08:30 Temperature Pulse Rate 102 H Pulse Rate [ From Monitor] Respiratory 31 H Rate Blood Pressure 125/63 O2 Sat by Pulse 98 99 Oximetry - Labs CBC & Chem 7: 11/07/18 04:13 11/07/18 04:13 Labs: Abnormal lab results 11/06/18 11/06/18 11/06/18 Range/Units 04:50 07:50 12:16 Hgb (11.8-15.2) gm/dl Hct (35.5-45.6) % Plt Count (140-440) K/mm3 Seg Neuts % (Manual) (40.0-70.0) % Lymphocytes % (Manual) (13.4-35.0) % Lymphocytes # (Manual) (1.2-5.4) K/mm3 Sodium 164 H* 161 H* (137-145) mmol/L Chloride 126.0 H (98-107) mmol/L BUN 111 H (9-20) mg/dL Creatinine 3.0 H (0.8-1.5) mg/dL Glucose 187 H (75-100) mg/dL POC Glucose 198 H (70-105) Calcium 7.0 L (8.4-10.2) mg/dL Magnesium (1.7-2.3) mg/dL AST (5-40) units/L Total Creatine Kinase (55-170) units/L Total Protein (6.3-8.2) g/dL Albumin (3.9-5) g/dL 11/06/18 11/06/18 11/06/18 Range/Units 15:42 17:59 21:21 Hgb (11.8-15.2) gm/dl Hct (35.5-45.6) % Plt Count (140-440) K/mm3 Seg Neuts % (Manual) (40.0-70.0) % Lymphocytes % (Manual) (13.4-35.0) % Lymphocytes # (Manual) (1.2-5.4) K/mm3 Sodium 162 H* (137-145) mmol/L Chloride 127.3 H (98-107) mmol/L BUN 98 H (9-20) mg/dL Creatinine 2.7 H (0.8-1.5) mg/dL Glucose 195 H (75-100) mg/dL POC Glucose 225 H 272 H (70-105) Calcium 7.1 L (8.4-10.2) mg/dL Magnesium (1.7-2.3) mg/dL AST (5-40) units/L Total Creatine Kinase (55-170) units/L Total Protein (6.3-8.2) g/dL Albumin (3.9-5) g/dL 11/06/18 11/06/18 11/07/18 Range/Units 21:24 21:24 02:01 Hgb 11.0 L (11.8-15.2) gm/dl Hct 33.4 L (35.5-45.6) % Plt Count (140-440) K/mm3 Seg Neuts % (Manual) (40.0-70.0) % Lymphocytes % (Manual) (13.4-35.0) % Lymphocytes # (Manual) (1.2-5.4) K/mm3 Sodium (137-145) mmol/L Chloride (98-107) mmol/L BUN (9-20) mg/dL Creatinine (0.8-1.5) mg/dL Glucose (75-100) mg/dL POC Glucose 282 H (70-105) Calcium (8.4-10.2) mg/dL Magnesium (1.7-2.3) mg/dL AST (5-40) units/L Total Creatine Kinase 3538 H (55-170) units/L Total Protein (6.3-8.2) g/dL Albumin (3.9-5) g/dL 11/07/18 11/07/18 11/07/18 Range/Units 04:13 04:13 04:13 Hgb 11.4 L (11.8-15.2) gm/dl Hct 33.8 L (35.5-45.6) % Plt Count 103 L (140-440) K/mm3 Seg Neuts % (Manual) 83.0 H (40.0-70.0) % Lymphocytes % (Manual) 6.0 L (13.4-35.0) % Lymphocytes # (Manual) 0.6 L (1.2-5.4) K/mm3 Sodium 161 H* (137-145) mmol/L Chloride 125.8 H (98-107) mmol/L BUN 80 H (9-20) mg/dL Creatinine 2.4 H (0.8-1.5) mg/dL Glucose 246 H (75-100) mg/dL POC Glucose (70-105) Calcium 7.4 L (8.4-10.2) mg/dL Magnesium 2.50 H (1.7-2.3) mg/dL AST 106 H (5-40) units/L Total Creatine Kinase 2918 H (55-170) units/L Total Protein 5.7 L (6.3-8.2) g/dL Albumin 2.0 L (3.9-5) g/dL 11/07/18 11/07/18 Range/Units 05:17 09:15 Hgb (11.8-15.2) gm/dl Hct (35.5-45.6) % Plt Count (140-440) K/mm3 Seg Neuts % (Manual) (40.0-70.0) % Lymphocytes % (Manual) (13.4-35.0) % Lymphocytes # (Manual) (1.2-5.4) K/mm3 Sodium (137-145) mmol/L Chloride (98-107) mmol/L BUN (9-20) mg/dL Creatinine (0.8-1.5) mg/dL Glucose (75-100) mg/dL POC Glucose 256 H 287 H (70-105) Calcium (8.4-10.2) mg/dL Magnesium (1.7-2.3) mg/dL AST (5-40) units/L Total Creatine Kinase (55-170) units/L Total Protein (6.3-8.2) g/dL Albumin (3.9-5) g/dL
[2018-11-07] MEDS: SODIUM CHLORIDE FLUSH SYRINGE 10 ML IV SCH ×2 (10:00→21:25)
[2018-11-07] MEDS ORDERED: LANTUS SUB-Q ONE (10:00)
[2018-11-07] MEDS: HEPARIN SUB-Q SCH ×2 (10:00→21:25)
[2018-11-07] MEDS: PROTONIX IV SCH ×2 (10:00→21:25)
--- NOTE | 2018-11-07 12:21 | Progress Note ---
Assessment and Plan Acute hypoxemic respiratory failure, on supplemental oxygen. Severe sepsis with shock (unspecified) Diabetic ketoacidosis. Acute kidney injury, likely secondary to rhabdomyolysis. Rhabdomyolysis. Acute encephalopathy, likely toxic metabolic. Hyperkalemia. Possible urinary tract infection. Severe metabolic acidosis. Possible hypothyroidism. Leukocytosis - begin Flomax re: urinary retention - get ST evaluation and advance diet as tolerated - continue supplemental oxygen as needed to keep O2 sat's > 90% - continue free water (increased to 300 mls q4h) and D5W re: hypernatremia - neurology evaluation ongoing and input appreciated - complete empiric Levaquin monotherapy; de-escalate based on clinical and microbiologic data - trend CRP and lactate prn to aid clinical decision making - continue long acting insulin therapy with SSI for target BG < 180 mg/dl acutely - Azotemia improving; continue gentle hydration - avoid nephrotoxins and renally adjust all medications as needed - switch to oral thyroid hormone supplementation - trend cpk levels (trending down) - wound care per WCT - continue GI & VTE prophylaxis - begin enteral nutrition as tolerated - aspiration precautions - flu & pneumovax addressed per protocol - resume chronic disease med's per attending - prn bronchodilators with pulmonary hygiene per RT - continue enteral nutrition as tolerated - Agitation management - Prevention of delirium, maintenance of sleep-wake cycle - continue other care per attending / other consultants ... re-evaluate in am & prn CONDITION: CRITICAL PROGNOSIS: GUARDED CODE STATUS: FULL The high probability of a clinically significant, sudden or life-threatening deterioration of the [respiratory and cardiac] system(s) required my full and direct attention, intervention and personal management. The aggregate critical care time was [36] minutes without overlap. Time includes spent on; [x] Data Review and interpretation [x] Patient assessment and monitoring of vital signs [x] Documentation [x] Medication orders and management Subjective Date of service: 11/07/18 Principal diagnosis: Ac hypoxemic resp failure; Severe sepsis; DKA; JAVY; Ac encephalopathy; UTI Interval history: Patient is seen today for: Acute hypoxemic respiratory failure; Severe sepsis with shock; Diabetic ketoacidosis; Acute kidney injury; Rhabdomyolysis; Acute encephalopathy, likely toxic metabolic; Hyperkalemia; Possible urinary tract infection; Severe metabolic acidosis; Possible hypothyroidism; Leukocytosis Seen and examined at bedside; 24hour events reviewed; nursing and respiratory care staff consulted; no adverse overnight events reported to me; resting peacefully in bed; a little more alert and appropriate; denies acute chest pains or palpitations; No N/V/F/C Objective Vital Signs - 12hr 11/07/18 11/07/18 11/07/18 00:31 00:43 01:00 Temperature Pulse Rate 96 H 100 H 95 H Pulse Rate [ From Monitor] Respiratory 29 H 27 H 24 Rate Blood Pressure 110/60 110/60 110/59 O2 Sat by Pulse 99 100 99 Oximetry 11/07/18 11/07/18 11/07/18 01:30 02:00 02:30 Temperature Pulse Rate 97 H 96 H 94 H Pulse Rate [ From Monitor] Respiratory 27 H 19 26 H Rate Blood Pressure 110/59 118/61 118/61 O2 Sat by Pulse 98 97 97 Oximetry 11/07/18 11/07/18 11/07/18 02:38 03:00 03:30 Temperature 102.5 F H Pulse Rate 94 H 93 H Pulse Rate [ From Monitor] Respiratory 24 26 H Rate Blood Pressure 113/59 113/59 O2 Sat by Pulse 98 98 Oximetry 11/07/18 11/07/18 11/07/18 04:00 04:30 05:00 Temperature 99 F Pulse Rate 98 H 90 94 H Pulse Rate [ 98 H From Monitor] Respiratory 18 22 20 Rate Blood Pressure 120/63 120/63 124/64 O2 Sat by Pulse 98 100 100 Oximetry 11/07/18 11/07/18 11/07/18 05:30 05:46 06:00 Temperature Pulse Rate 89 90 95 H Pulse Rate [ From Monitor] Respiratory 25 H 24 23 Rate Blood Pressure 124/64 124/64 116/61 O2 Sat by Pulse 100 100 100 Oximetry 11/07/18 11/07/18 11/07/18 06:30 07:00 07:30 Temperature Pulse Rate 92 H 90 93 H Pulse Rate [ From Monitor] Respiratory 20 23 24 Rate Blood Pressure 124/64 112/55 112/55 O2 Sat by Pulse 100 100 100 Oximetry 11/07/18 11/07/18 11/07/18 08:00 08:03 08:30 Temperature 99.0 F Pulse Rate 105 H 102 H Pulse Rate [ 104 H From Monitor] Respiratory 25 H 31 H Rate Blood Pressure 125/63 125/63 O2 Sat by Pulse 100 98 99 Oximetry 11/07/18 11/07/18 11/07/18 09:00 09:30 10:00 Temperature Pulse Rate 103 H 100 H 100 H Pulse Rate [ From Monitor] Respiratory 30 H 30 H 28 H Rate Blood Pressure 123/63 123/63 118/62 O2 Sat by Pulse 100 100 100 Oximetry 11/07/18 11/07/18 10:30 11:00 Temperature Pulse Rate 101 H 101 H Pulse Rate [ From Monitor] Respiratory 15 24 Rate Blood Pressure 118/62 129/70 O2 Sat by Pulse 100 99 Oximetry Constitutional: lethargic Eyes: non-icteric ENT: oropharynx moist, other (mallampati 2) Neck: supple, no lymphadenopathy, no JVD Effort: mildly labored Ascultation: Bilateral: diminished breath sounds, rhonchi Percussion: Bilateral: not dull Cardiovascular: regular rate and rhythm Gastrointestinal: normoactive bowel sounds, soft, non-tender, non-distended Integumentary: normal Extremities: no cyanosis, no edema, pulses normal, no ischemia or petechiae Neurologic: non-focal exam (grossly) Psychiatric: other (unable to assess re: AMS) CBC and BMP: 11/15/18 03:58 11/16/18 04:41 ABG, PT/INR, D-dimer: ABG POC ABG pH 7.432 (7.35-7.45) 11/05/18 17:08 POC ABG pCO2 32.3 (35-45) L 11/05/18 17:08 POC ABG HCO3 21.5 (22-26 mml/L) 11/05/18 17:08 POC ABG Total CO2 23 (23-27mmol/L) 11/05/18 17:08 POC ABG O2 Sat 85 11/05/18 17:08 PT/INR, D-dimer PT 15.6 Sec. (12.2-14.9) H 11/04/18 16:05 INR 1.27 (0.87-1.13) H 11/04/18 16:05 Abnormal lab findings: Abnormal Labs 11/04/18 11/04/18 11/04/18 15:23 15:35 16:05 WBC 12.6 H Hgb Hct Plt Count Seg Neuts % (Manual) 84.0 H Lymphocytes % (Manual) 1.0 L Seg Neutrophils # Man 10.6 H Lymphocytes # (Manual) 0.1 L PT INR POC ABG pCO2 VBG pH Sodium Potassium Chloride Carbon Dioxide BUN Creatinine Glucose POC Glucose > 500 H Lactic Acid Calcium Phosphorus Magnesium AST Total Creatine Kinase C-Reactive Protein Total Protein Albumin TSH Free T4 PTH Intact Urine WBC (Auto) 12.0 H Urine Creatinine Salicylates Acetaminophen 11/04/18 11/04/18 11/04/18 16:05 16:05 16:05 WBC Hgb Hct Plt Count Seg Neuts % (Manual) Lymphocytes % (Manual) Seg Neutrophils # Man Lymphocytes # (Manual) PT 15.6 H INR 1.27 H POC ABG pCO2 VBG pH Sodium 153 H Potassium 6.2 H* Chloride Carbon Dioxide 18 L BUN 200 H Creatinine 6.8 H Glucose 1088 H* POC Glucose Lactic Acid 2.80 H* Calcium 7.2 L Phosphorus Magnesium AST Total Creatine Kinase C-Reactive Protein Total Protein Albumin 3.1 L TSH Free T4 PTH Intact Urine WBC (Auto) Urine Creatinine Salicylates Acetaminophen 11/04/18 11/04/18 11/04/18 16:05 16:05 16:05 WBC Hgb Hct Plt Count Seg Neuts % (Manual) Lymphocytes % (Manual) Seg Neutrophils # Man Lymphocytes # (Manual) PT INR POC ABG pCO2 VBG pH 7.245 L Sodium Potassium Chloride Carbon Dioxide BUN Creatinine Glucose POC Glucose Lactic Acid Calcium Phosphorus 13.80 H Magnesium 3.60 H AST Total Creatine Kinase C-Reactive Protein Total Protein Albumin TSH 0.169 L Free T4 0.68 L PTH Intact Urine WBC (Auto) Urine Creatinine Salicylates Acetaminophen 11/04/18 11/04/18 11/04/18 16:05 16:48 19:40 WBC Hgb Hct Plt Count Seg Neuts % (Manual) Lymphocytes % (Manual) Seg Neutrophils # Man Lymphocytes # (Manual) PT INR POC ABG pCO2 VBG pH Sodium Potassium Chloride Carbon Dioxide BUN Creatinine Glucose POC Glucose > 500 H 458 H Lactic Acid Calcium Phosphorus Magnesium AST Total Creatine Kinase 1857 H C-Reactive Protein Total Protein Albumin TSH Free T4 PTH Intact Urine WBC (Auto) Urine Creatinine Salicylates Acetaminophen 11/04/18 11/04/18 11/04/18 20:29 20:29 20:29 WBC Hgb Hct Plt Count Seg Neuts % (Manual) Lymphocytes % (Manual) Seg Neutrophils # Man Lymphocytes # (Manual) PT INR POC ABG pCO2 VBG pH Sodium 163 H* D Potassium Chloride 121.4 H Carbon Dioxide 21 L BUN 166 H Creatinine 5.6 H Glucose 513 H* POC Glucose Lactic Acid 3.30 H* 3.30 H* Calcium 6.4 L Phosphorus Magnesium AST Total Creatine Kinase C-Reactive Protein Total Protein Albumin TSH Free T4 PTH Intact Urine WBC (Auto) Urine Creatinine Salicylates Acetaminophen 11/04/18 11/04/18 11/04/18 20:55 21:03 22:00 WBC Hgb Hct Plt Count Seg Neuts % (Manual) Lymphocytes % (Manual) Seg Neutrophils # Man Lymphocytes # (Manual) PT INR POC ABG pCO2 VBG pH Sodium Potassium Chloride Carbon Dioxide BUN Creatinine Glucose POC Glucose 496 H Lactic Acid 3.60 H* Calcium Phosphorus Magnesium AST Total Creatine Kinase C-Reactive Protein Total Protein Albumin TSH Free T4 PTH Intact Urine WBC (Auto) Urine Creatinine 58.1 H Salicylates Acetaminophen 11/04/18 11/04/18 11/04/18 22:04 23:07 23:47 WBC Hgb Hct Plt Count Seg Neuts % (Manual) Lymphocytes % (Manual) Seg Neutrophils # Man Lymphocytes # (Manual) PT INR POC ABG pCO2 VBG pH Sodium 170 H* Potassium Chloride 127.1 H Carbon Dioxide BUN 164 H Creatinine 5.2 H Glucose 213 H POC Glucose 357 H 306 H Lactic Acid Calcium 6.5 L Phosphorus Magnesium AST Total Creatine Kinase C-Reactive Protein Total Protein Albumin TSH Free T4 PTH Intact Urine WBC (Auto) Urine Creatinine Salicylates Acetaminophen 11/04/18 11/05/18 11/05/18 23:47 00:04 00:09 WBC Hgb Hct Plt Count Seg Neuts % (Manual) Lymphocytes % (Manual) Seg Neutrophils # Man Lymphocytes # (Manual) PT INR POC ABG pCO2 VBG pH Sodium 163 H* Potassium Chloride 127.5 H Carbon Dioxide BUN 117 H Creatinine 3.3 H Glucose 235 H POC Glucose 219 H Lactic Acid 3.20 H* Calcium 6.8 L Phosphorus Magnesium AST Total Creatine Kinase C-Reactive Protein Total Protein Albumin TSH Free T4 PTH Intact Urine WBC (Auto) Urine Creatinine Salicylates Acetaminophen 11/05/18 11/05/18 11/05/18 00:59 03:13 03:52 WBC Hgb Hct Plt Count Seg Neuts % (Manual) Lymphocytes % (Manual) Seg Neutrophils # Man Lymphocytes # (Manual) PT INR POC ABG pCO2 VBG pH Sodium Potassium Chloride Carbon Dioxide BUN Creatinine Glucose POC Glucose 204 H 124 H Lactic Acid Calcium Phosphorus Magnesium AST Total Creatine Kinase 1680 H C-Reactive Protein Total Protein Albumin TSH Free T4 PTH Intact Urine WBC (Auto) Urine Creatinine Salicylates Acetaminophen 11/05/18 11/05/18 11/05/18 03:52 04:25 05:11 WBC Hgb Hct Plt Count Seg Neuts % (Manual) Lymphocytes % (Manual) Seg Neutrophils # Man Lymphocytes # (Manual) PT INR POC ABG pCO2 VBG pH Sodium 169 H* Potassium Chloride 126.2 H Carbon Dioxide BUN 156 H Creatinine 4.7 H Glucose 128 H POC Glucose 150 H 173 H Lactic Acid Calcium 6.3 L Phosphorus Magnesium AST Total Creatine Kinase C-Reactive Protein Total Protein Albumin TSH Free T4 PTH Intact Urine WBC (Auto) Urine Creatinine Salicylates Acetaminophen 11/05/18 11/05/18 11/05/18 06:05 06:58 07:48 WBC Hgb Hct Plt Count Seg Neuts % (Manual) Lymphocytes % (Manual) Seg Neutrophils # Man Lymphocytes # (Manual) PT INR POC ABG pCO2 VBG pH Sodium Potassium Chloride Carbon Dioxide BUN Creatinine Glucose POC Glucose 136 H 152 H 177 H Lactic Acid Calcium Phosphorus Magnesium AST Total Creatine Kinase C-Reactive Protein Total Protein Albumin TSH Free T4 PTH Intact Urine WBC (Auto) Urine Creatinine Salicylates Acetaminophen 11/05/18 11/05/18 11/05/18 08:21 08:21 08:23 WBC Hgb Hct Plt Count Seg Neuts % (Manual) Lymphocytes % (Manual) Seg Neutrophils # Man Lymphocytes # (Manual) PT INR POC ABG pCO2 VBG pH Sodium 171 H* Potassium Chloride 128.9 H Carbon Dioxide BUN 149 H Creatinine 4.5 H Glucose 159 H POC Glucose 157 H Lactic Acid Calcium 6.7 L Phosphorus Magnesium AST Total Creatine Kinase C-Reactive Protein Total Protein Albumin TSH Free T4 PTH Intact 119.3 H Urine WBC (Auto) Urine Creatinine Salicylates Acetaminophen 11/05/18 11/05/18 11/05/18 10:21 11:12 12:37 WBC Hgb Hct Plt Count Seg Neuts % (Manual) Lymphocytes % (Manual) Seg Neutrophils # Man Lymphocytes # (Manual) PT INR POC ABG pCO2 VBG pH Sodium Potassium Chloride Carbon Dioxide BUN Creatinine Glucose POC Glucose 171 H 155 H 145 H Lactic Acid Calcium Phosphorus Magnesium AST Total Creatine Kinase C-Reactive Protein Total Protein Albumin TSH Free T4 PTH Intact Urine WBC (Auto) Urine Creatinine Salicylates Acetaminophen 11/05/18 11/05/18 11/05/18 13:24 13:47 14:42 WBC Hgb Hct Plt Count Seg Neuts % (Manual) Lymphocytes % (Manual) Seg Neutrophils # Man Lymphocytes # (Manual) PT INR POC ABG pCO2 VBG pH Sodium 167 H* Potassium Chloride 131.6 H Carbon Dioxide BUN 130 H Creatinine 3.8 H Glucose 136 H POC Glucose 137 H 133 H Lactic Acid Calcium 6.4 L Phosphorus Magnesium AST Total Creatine Kinase C-Reactive Protein Total Protein Albumin TSH Free T4 PTH Intact Urine WBC (Auto) Urine Creatinine Salicylates Acetaminophen 11/05/18 11/05/18 11/05/18 16:55 17:08 18:14 WBC Hgb Hct Plt Count Seg Neuts % (Manual) Lymphocytes % (Manual) Seg Neutrophils # Man Lymphocytes # (Manual) PT INR POC ABG pCO2 32.3 L VBG pH Sodium Potassium Chloride Carbon Dioxide BUN Creatinine Glucose POC Glucose 194 H 195 H Lactic Acid Calcium Phosphorus Magnesium AST Total Creatine Kinase C-Reactive Protein Total Protein Albumin TSH Free T4 PTH Intact Urine WBC (Auto) Urine Creatinine Salicylates Acetaminophen 11/05/18 11/05/18 11/05/18 18:35 18:35 18:35 WBC Hgb Hct Plt Count Seg Neuts % (Manual) Lymphocytes % (Manual) Seg Neutrophils # Man Lymphocytes # (Manual) PT INR POC ABG pCO2 VBG pH Sodium Potassium Chloride Carbon Dioxide BUN Creatinine Glucose POC Glucose Lactic Acid Calcium Phosphorus Magnesium AST Total Creatine Kinase C-Reactive Protein 19.50 H Total Protein Albumin TSH Free T4 PTH Intact Urine WBC (Auto) Urine Creatinine Salicylates < 0.3 L Acetaminophen < 5.0 L 11/05/18 11/06/18 11/06/18 21:09 01:36 04:50 WBC Hgb 11.3 L Hct 32.8 L D Plt Count 110 L Seg Neuts % (Manual) Lymphocytes % (Manual) Seg Neutrophils # Man Lymphocytes # (Manual) PT INR POC ABG pCO2 VBG pH Sodium Potassium Chloride Carbon Dioxide BUN Creatinine Glucose POC Glucose 250 H 289 H Lactic Acid Calcium Phosphorus Magnesium AST Total Creatine Kinase C-Reactive Protein Total Protein Albumin TSH Free T4 PTH Intact Urine WBC (Auto) Urine Creatinine Salicylates Acetaminophen 11/06/18 11/06/18 11/06/18 04:50 04:50 05:14 WBC Hgb Hct Plt Count Seg Neuts % (Manual) Lymphocytes % (Manual) Seg Neutrophils # Man Lymphocytes # (Manual) PT INR POC ABG pCO2 VBG pH Sodium 165 H* 164 H* Potassium Chloride 127.4 H Carbon Dioxide BUN 113 H Creatinine 3.2 H Glucose 208 H POC Glucose 215 H Lactic Acid Calcium 6.8 L Phosphorus Magnesium AST 55 H Total Creatine Kinase C-Reactive Protein Total Protein 5.2 L D Albumin 2.3 L TSH Free T4 PTH Intact Urine WBC (Auto) Urine Creatinine Salicylates Acetaminophen 11/06/18 11/06/18 11/06/18 07:50 08:50 12:16 WBC Hgb Hct Plt Count Seg Neuts % (Manual) Lymphocytes % (Manual) Seg Neutrophils # Man Lymphocytes # (Manual) PT INR POC ABG pCO2 VBG pH Sodium 161 H* Potassium Chloride 126.0 H Carbon Dioxide BUN 111 H Creatinine 3.0 H Glucose 187 H POC Glucose 239 H 198 H Lactic Acid Calcium 7.0 L Phosphorus Magnesium AST Total Creatine Kinase C-Reactive Protein Total Protein Albumin TSH Free T4 PTH Intact Urine WBC (Auto) Urine Creatinine Salicylates Acetaminophen 11/06/18 11/06/18 11/06/18 15:42 17:59 21:21 WBC Hgb Hct Plt Count Seg Neuts % (Manual) Lymphocytes % (Manual) Seg Neutrophils # Man Lymphocytes # (Manual) PT INR POC ABG pCO2 VBG pH Sodium 162 H* Potassium Chloride 127.3 H Carbon Dioxide BUN 98 H Creatinine 2.7 H Glucose 195 H POC Glucose 225 H 272 H Lactic Acid Calcium 7.1 L Phosphorus Magnesium AST Total Creatine Kinase C-Reactive Protein Total Protein Albumin TSH Free T4 PTH Intact Urine WBC (Auto) Urine Creatinine Salicylates Acetaminophen 11/06/18 11/06/18 11/07/18 21:24 21:24 02:01 WBC Hgb 11.0 L Hct 33.4 L Plt Count Seg Neuts % (Manual) Lymphocytes % (Manual) Seg Neutrophils # Man Lymphocytes # (Manual) PT INR POC ABG pCO2 VBG pH Sodium Potassium Chloride Carbon Dioxide BUN Creatinine Glucose POC Glucose 282 H Lactic Acid Calcium Phosphorus Magnesium AST Total Creatine Kinase 3538 H C-Reactive Protein Total Protein Albumin TSH Free T4 PTH Intact Urine WBC (Auto) Urine Creatinine Salicylates Acetaminophen 11/07/18 11/07/18 11/07/18 04:13 04:13 04:13 WBC Hgb 11.4 L Hct 33.8 L Plt Count 103 L Seg Neuts % (Manual) 83.0 H Lymphocytes % (Manual) 6.0 L Seg Neutrophils # Man Lymphocytes # (Manual) 0.6 L PT INR POC ABG pCO2 VBG pH Sodium 161 H* Potassium Chloride 125.8 H Carbon Dioxide BUN 80 H Creatinine 2.4 H Glucose 246 H POC Glucose Lactic Acid Calcium 7.4 L Phosphorus Magnesium 2.50 H AST 106 H Total Creatine Kinase 2918 H C-Reactive Protein Total Protein 5.7 L Albumin 2.0 L TSH Free T4 PTH Intact Urine WBC (Auto) Urine Creatinine Salicylates Acetaminophen 11/07/18 11/07/18 05:17 09:15 WBC Hgb Hct Plt Count Seg Neuts % (Manual) Lymphocytes % (Manual) Seg Neutrophils # Man Lymphocytes # (Manual) PT INR POC ABG pCO2 VBG pH Sodium Potassium Chloride Carbon Dioxide BUN Creatinine Glucose POC Glucose 256 H 287 H Lactic Acid Calcium Phosphorus Magnesium AST Total Creatine Kinase C-Reactive Protein Total Protein Albumin TSH Free T4 PTH Intact Urine WBC (Auto) Urine Creatinine Salicylates Acetaminophen Chest x-ray: pending Allied health notes reviewed: nursing
[2018-11-07] MEDS: FLOMAX PO SCH (13:00)
--- NOTE | 2018-11-07 13:25 | Progress Note ---
Assessment and Plan Cultures/ID labs: Urine cultures negative Blood culture NGTD 24 hours A/P: 53 yo M PMHx diabetes found down in his apartment in DKA with metabolic encephalopathy. Febrile and leukocytosis on admission, initially concerned for UTI. 1) Sepsis - Fevers recurred briefly, no new symptoms and he was just extubated. would continue the levofloxacin for now and monitor overnight. White count remains normal and he is improved from a respiratory and mental standpoint. 2) JAVY - will continue dose-reduced levofloxacin. Improving. Cockroft-gault GFR: 16 3) DKA 4) Metabolic encephalopathy 5) Rhabdomylosis Recs: Continue levofloxacin 250mg q48h. Assuming white count and fever remain stable, would recommend shorter course, likely 5 days - based on Cockroft-Gault fo 16, this dosing remains appropriate. May need to adjust based on expected improvements in renal function. - daily CBC with diff Thank you for the consult, we will continue to follow along. Riana Fuentes MD [facility], [place], [facility] C: [phone] O: [phone] F: [phone] Subjective Date of service: 11/07/18 Principal diagnosis: Ac hypoxemic resp failure; Severe sepsis; DKA; JAVY; Ac encephalopathy; UTI Interval history: Patient much improved. Now extubated and responsive. Plenty of family at the bedside. Febrile overnight, no other fevers. Normal white count. Tolerates levofloxacin without issue. Objective - Exam Narrative Exam: Constitutional: awake, no distress, following commands Head, Ears, Nose: Normocephalic, atraumatic. External ears, nose normal Eyes: Conjunctivae/corneas clear. No icterus. No ptosis. Neck: Supple, no meningeal signs Oral: fair dentition, moist mucous membranes Cardiovascular: S1, S2 normal. Normal rhythm Respiratory: Good air entry, clear to auscultation bilaterally GI: Soft, non-tender; bowel sounds normal. No peritoneal signs Musculoskeletal: No pedal edema, Skin: No rash or abscess. Abrasion L elbow Hem/Lymphatic: No palpable cervical or supraclavicular nodes. No lymphangitis Psych: no agitation Neurological: Moves all extremities, no focal defects - Constitutional Vitals: Vital Signs Temp Pulse Resp BP Pulse Ox 100 F H 96 H 28 H 119/66 100 07/30/19 12:00 11/07/18 12:00 11/07/18 12:00 11/07/18 12:00 11/07/18 12:00 Temperature -Last 24 Hours Temperature 100 F Temperature 99.0 F Temperature 99 F Temperature 102.5 F Temperature 99.4 F Temperature 100 F Temperature 99.8 F - Labs CBC & Chem 7: 11/07/18 04:13 11/07/18 04:13 Labs: Abnormal lab results 11/06/18 11/06/18 11/06/18 Range/Units 15:42 17:59 21:21 Hgb (11.8-15.2) gm/dl Hct (35.5-45.6) % Plt Count (140-440) K/mm3 Seg Neuts % (Manual) (40.0-70.0) % Lymphocytes % (Manual) (13.4-35.0) % Lymphocytes # (Manual) (1.2-5.4) K/mm3 Sodium 162 H* (137-145) mmol/L Chloride 127.3 H (98-107) mmol/L BUN 98 H (9-20) mg/dL Creatinine 2.7 H (0.8-1.5) mg/dL Glucose 195 H (75-100) mg/dL POC Glucose 225 H 272 H (70-105) Calcium 7.1 L (8.4-10.2) mg/dL Magnesium (1.7-2.3) mg/dL AST (5-40) units/L Total Creatine Kinase (55-170) units/L Total Protein (6.3-8.2) g/dL Albumin (3.9-5) g/dL 11/06/18 11/06/18 11/07/18 Range/Units 21:24 21:24 02:01 Hgb 11.0 L (11.8-15.2) gm/dl Hct 33.4 L (35.5-45.6) % Plt Count (140-440) K/mm3 Seg Neuts % (Manual) (40.0-70.0) % Lymphocytes % (Manual) (13.4-35.0) % Lymphocytes # (Manual) (1.2-5.4) K/mm3 Sodium (137-145) mmol/L Chloride (98-107) mmol/L BUN (9-20) mg/dL Creatinine (0.8-1.5) mg/dL Glucose (75-100) mg/dL POC Glucose 282 H (70-105) Calcium (8.4-10.2) mg/dL Magnesium (1.7-2.3) mg/dL AST (5-40) units/L Total Creatine Kinase 3538 H (55-170) units/L Total Protein (6.3-8.2) g/dL Albumin (3.9-5) g/dL 11/07/18 11/07/18 11/07/18 Range/Units 04:13 04:13 04:13 Hgb 11.4 L (11.8-15.2) gm/dl Hct 33.8 L (35.5-45.6) % Plt Count 103 L (140-440) K/mm3 Seg Neuts % (Manual) 83.0 H (40.0-70.0) % Lymphocytes % (Manual) 6.0 L (13.4-35.0) % Lymphocytes # (Manual) 0.6 L (1.2-5.4) K/mm3 Sodium 161 H* (137-145) mmol/L Chloride 125.8 H (98-107) mmol/L BUN 80 H (9-20) mg/dL Creatinine 2.4 H (0.8-1.5) mg/dL Glucose 246 H (75-100) mg/dL POC Glucose (70-105) Calcium 7.4 L (8.4-10.2) mg/dL Magnesium 2.50 H (1.7-2.3) mg/dL AST 106 H (5-40) units/L Total Creatine Kinase 2918 H (55-170) units/L Total Protein 5.7 L (6.3-8.2) g/dL Albumin 2.0 L (3.9-5) g/dL 11/07/18 11/07/18 11/07/18 Range/Units 05:17 09:15 13:27 Hgb (11.8-15.2) gm/dl Hct (35.5-45.6) % Plt Count (140-440) K/mm3 Seg Neuts % (Manual) (40.0-70.0) % Lymphocytes % (Manual) (13.4-35.0) % Lymphocytes # (Manual) (1.2-5.4) K/mm3 Sodium (137-145) mmol/L Chloride (98-107) mmol/L BUN (9-20) mg/dL Creatinine (0.8-1.5) mg/dL Glucose (75-100) mg/dL POC Glucose 256 H 287 H 281 H (70-105) Calcium (8.4-10.2) mg/dL Magnesium (1.7-2.3) mg/dL AST (5-40) units/L Total Creatine Kinase (55-170) units/L Total Protein (6.3-8.2) g/dL Albumin (3.9-5) g/dL - Imaging and cardiology Chest x-ray: image reviewed (normal)
--- NOTE | 2018-11-07 13:36 | Progress Note ---
Assessment and Plan 1. Acute kidney injury: Vasomotor JAVY in the setting of volume depletion and DKA. Renal US was negative for hydro. Continue IV fluids. Renal function is improving. Monitor renal function. Renal prognosis is guarded. Avoid nephrotoxic agents. Meds dosage based on GFR. 2. FEN: Hyperkalemia, improved. Hypernatremia, continue IV D5W and water flushes. Metabolic acidosis, improved. Monitor lytes. 3. DKA: S/p Insulin drip. 4. Sepsis: ?UTI. On Levofloxacin. 5. Metabolic Encephalopathy. D/w daughter and answered all questions. Subjective Date of service: 11/07/18 Principal diagnosis: Ac hypoxemic resp failure; Severe sepsis; DKA; JAVY; Ac encephalopathy; UTI Interval history: Patient was seen and examined at the bedside. Daughter at the bedside. Objective - Vital Signs Vital signs: Vital Signs - 12hr 11/07/18 11/07/18 11/07/18 02:00 02:30 02:38 Temperature 102.5 F H Pulse Rate 96 H 94 H Pulse Rate [ From Monitor] Respiratory 19 26 H Rate Blood Pressure 118/61 118/61 O2 Sat by Pulse 97 97 Oximetry 11/07/18 11/07/18 11/07/18 03:00 03:30 04:00 Temperature 99 F Pulse Rate 94 H 93 H 98 H Pulse Rate [ 98 H From Monitor] Respiratory 24 26 H 18 Rate Blood Pressure 113/59 113/59 120/63 O2 Sat by Pulse 98 98 98 Oximetry 11/07/18 11/07/18 11/07/18 04:30 05:00 05:30 Temperature Pulse Rate 90 94 H 89 Pulse Rate [ From Monitor] Respiratory 22 20 25 H Rate Blood Pressure 120/63 124/64 124/64 O2 Sat by Pulse 100 100 100 Oximetry 11/07/18 11/07/18 11/07/18 05:46 06:00 06:30 Temperature Pulse Rate 90 95 H 92 H Pulse Rate [ From Monitor] Respiratory 24 23 20 Rate Blood Pressure 124/64 116/61 124/64 O2 Sat by Pulse 100 100 100 Oximetry 11/07/18 11/07/18 11/07/18 07:00 07:30 08:00 Temperature 99.0 F Pulse Rate 90 93 H 105 H Pulse Rate [ 104 H From Monitor] Respiratory 23 24 25 H Rate Blood Pressure 112/55 112/55 125/63 O2 Sat by Pulse 100 100 100 Oximetry 11/07/18 11/07/18 11/07/18 08:03 08:30 09:00 Temperature Pulse Rate 102 H 103 H Pulse Rate [ From Monitor] Respiratory 31 H 30 H Rate Blood Pressure 125/63 123/63 O2 Sat by Pulse 98 99 100 Oximetry 11/07/18 11/07/18 11/07/18 09:30 10:00 10:30 Temperature Pulse Rate 100 H 100 H 101 H Pulse Rate [ From Monitor] Respiratory 30 H 28 H 15 Rate Blood Pressure 123/63 118/62 118/62 O2 Sat by Pulse 100 100 100 Oximetry 11/07/18 11/07/18 11/07/18 11:00 11:30 12:00 Temperature 100 F H Pulse Rate 101 H 96 H 97 H Pulse Rate [ 96 H From Monitor] Respiratory 24 27 H 32 H Rate Blood Pressure 129/70 129/70 119/66 O2 Sat by Pulse 99 98 100 Oximetry 11/07/18 11/07/18 12:30 13:00 Temperature Pulse Rate 96 H 98 H Pulse Rate [ From Monitor] Respiratory 28 H 31 H Rate Blood Pressure 119/66 128/68 O2 Sat by Pulse 100 100 Oximetry - General Appearance General appearance: well-developed, appears stated age, other (no distress) EENT: ATNC, PERRL, hearing intact Neck: supple Respiratory: Present: Clear to Ascultation Cardiology: regular, S1S2, no murmurs Gastrointestinal: normoactive bowel sounds, no tenderness, no distended Integumentary: no rash Neurologic: other (somnolent more alert than yesterday, able to tell his name) Musculoskeletal: other (no edema) - Lab 11/07/18 15:10 11/07/18 04:13 Most recent lab results Calcium 7.4 mg/dL (8.4-10.2) L 11/07/18 04:13 Phosphorus 2.70 mg/dL (2.5-4.5) D 11/07/18 04:13 Magnesium 2.50 mg/dL (1.7-2.3) H 11/07/18 04:13 58.1 mg/dL (0.1-20.0) H 11/04/18 20:55 34 mmol/L 11/04/18 20:55 Medications & Allergies - Medications Allergies/Adverse Reactions: Allergies No Known Allergies Allergy (Unverified 11/04/18 15:22) Home Medications: Home Medications Medication Instructions Recorded Confirmed Last Taken Type Glimepiride 4 mg PO BID 11/06/18 11/06/18 Unknown History HYDROcodone/ACETAMINOPHEN 5 - 325 mg PO Q4-6H PRN 11/06/18 11/06/18 Unknown History Ibuprofen 800 mg PO Q8HR PRN 11/06/18 11/06/18 Unknown History Lisinopril 2.5 mg PO DAILY 11/06/18 11/06/18 Unknown History Metformin HCl 1,000 mg PO BID 11/06/18 11/06/18 Unknown History NovoLIN N 5 unit SUB-Q BID MDD x 90days 11/06/18 11/06/18 Unknown History Pravastatin Sodium 20 mg PO BID 11/06/18 11/06/18 Unknown History glipiZIDE 10 mg PO BID 11/06/18 11/06/18 Unknown History Active Medications: Generic Name Dose Route Start Last Admin Trade Name Freq PRN Reason Stop Dose Admin Albuterol 2.5 mg 11/04/18 17:42 Proventil IH Q3H PRN Shortness Of Breath Lipase/Protease/Amylase 1 each 11/06/18 15:57 Pancreaze 10,500 Unit FEEDTUBE PRN PRN For Clogged Feeding Tube Dextrose 0 ml 11/04/18 15:40 D50w (25gm) Syringe IV PRN PRN Hypoglycemia Heparin Sodium (Porcine) 5,000 unit 11/04/18 22:00 11/07/18 10:00 Heparin SUB-Q 5,000 unit Q12HR MARIEL Administration Dextrose 1,000 mls @ 100 mls/hr 11/05/18 06:00 11/07/18 06:38 D5w IV 100 mls/hr DIRECT MARIEL Administration Levofloxacin/Dextrose 250 mg in 50 mls @ 50 mls/hr 11/05/18 15:00 11/05/18 18:33 Levaquin 250mg/50ml IV 11/08/18 14:59 Not Given Q48H MARIEL Insulin Glargine 20 units 11/07/18 22:00 Lantus SUB-Q QHS MARIEL Insulin Human Lispro 0 unit 11/05/18 17:00 11/07/18 13:00 Humalog SUB-Q 4 unit Q4H MARIEL Administration Protocol Pantoprazole Sodium 40 mg 11/06/18 22:00 11/07/18 10:00 Protonix IV 40 mg BID MARIEL Administration Simple Syrup 15 ml 11/06/18 15:57 Simple Syrup FEEDTUBE PRN PRN Hypoglycemia Simple Syrup 30 ml 11/06/18 15:57 Simple Syrup FEEDTUBE PRN PRN Hypoglycemia Sodium Bicarbonate 325 mg 11/06/18 15:57 Sodium Bicarbonate FEEDTUBE PRN PRN For Clogged Feeding Tube Sodium Chloride 10 ml 11/04/18 22:00 11/07/18 10:00 Sodium Chloride Flush Syringe 10 Ml IV 10 ml BID MARIEL Administration Sodium Chloride 10 ml 11/04/18 17:42 Sodium Chloride Flush Syringe 10 Ml IV PRN PRN LINE FLUSH Tamsulosin HCl 0.4 mg 11/07/18 13:00 Flomax PO QDAY MARIEL
[2018-11-07] MEDS: LEVAQUIN 250MG/50ML 250 MG/50 ML BAG IV SCH (15:00)
[2018-11-07 15:22] LABS: Hematocrit 31.2 % (35.5-45.6); Hemoglobin 10.2 gm/dl (11.8-15.2)
--- NOTE | 2018-11-07 17:40 | Consultation ---
History of Present Illness - Reason for Consult Consult date: 11/07/18 GI bleed Requesting physician: HUGO VALENZUELA - History of Present Illness Mr. arias is a 53-year-old man brought to the hospital on November 04 after having been found unresponsive at home. He may have been unresponsive for several days. When he came in, he was in DKA and had rhabdomyolysis. According to the daughter, there was blood in vomit at home, and the patient was found lying in feces. He has been managed here in the hospital and is gradually improving. He was noted to have 3 black stools yesterday, and GI consultation is obtained. No further history is available. Past History Past Medical History: diabetes Past Surgical History: No surgical history, Other (Reviewed: UTO) Social history: . denies: smoking, alcohol abuse, prescription drug abuse Family history: no significant family history (Unknown per family in room) Medications and Allergies Allergies Allergy/AdvReac Type Severity Reaction Status Date / Time No Known Allergies Allergy Unverified 11/04/18 15:22 Home Medications Medication Instructions Recorded Confirmed Last Taken Type Glimepiride 4 mg PO BID 11/06/18 11/06/18 Unknown History HYDROcodone/ACETAMINOPHEN 5 - 325 mg PO Q4-6H PRN 11/06/18 11/06/18 Unknown History Ibuprofen 800 mg PO Q8HR PRN 11/06/18 11/06/18 Unknown History Lisinopril 2.5 mg PO DAILY 11/06/18 11/06/18 Unknown History Metformin HCl 1,000 mg PO BID 11/06/18 11/06/18 Unknown History NovoLIN N 5 unit SUB-Q BID MDD x 90days 11/06/18 11/06/18 Unknown History Pravastatin Sodium 20 mg PO BID 11/06/18 11/06/18 Unknown History glipiZIDE 10 mg PO BID 11/06/18 11/06/18 Unknown History Active Meds: Active Medications Albuterol (Proventil) 2.5 mg IH Q3H PRN PRN Reason: Shortness Of Breath Lipase/Protease/Amylase (Ting Delacruz 10,500 Unit) 1 each FEEDTUBE PRN PRN PRN Reason: For Clogged Feeding Tube Dextrose (D50w (25gm) Syringe) 0 ml IV PRN PRN PRN Reason: Hypoglycemia Heparin Sodium (Porcine) (Heparin) 5,000 unit SUB-Q Q12HR [facility] Last Admin: 11/07/18 10:00 Dose: 5,000 unit Documented by: Levofloxacin/Dextrose (Levaquin 250mg/50ml) 250 mg in 50 mls @ 50 mls/hr IV Q48H [facility] Last Admin: 11/07/18 15:00 Dose: 50 mls/hr Documented by: Dextrose (D5w) 1,000 mls @ 150 mls/hr IV DIRECT [facility] Last Admin: 11/07/18 14:00 Dose: 150 mls/hr Documented by: Insulin Glargine (Lantus) 25 units SUB-Q QHS MARIEL Insulin Human Lispro (Humalog) 0 unit SUB-Q Q4H [facility]; Protocol Last Admin: 11/07/18 13:00 Dose: 4 unit Documented by: Pantoprazole Sodium (Protonix) 40 mg IV BID [facility] Last Admin: 11/07/18 10:00 Dose: 40 mg Documented by: Simple Syrup (Simple Syrup) 15 ml FEEDTUBE PRN PRN PRN Reason: Hypoglycemia Simple Syrup (Simple Syrup) 30 ml FEEDTUBE PRN PRN PRN Reason: Hypoglycemia Sodium Bicarbonate (Sodium Bicarbonate) 325 mg FEEDTUBE PRN PRN PRN Reason: For Clogged Feeding Tube Sodium Chloride (Sodium Chloride Flush Syringe 10 Ml) 10 ml IV BID [facility] Last Admin: 11/07/18 10:00 Dose: 10 ml Documented by: Sodium Chloride (Sodium Chloride Flush Syringe 10 Ml) 10 ml IV PRN PRN PRN Reason: LINE FLUSH Tamsulosin HCl (Flomax) 0.4 mg PO QDAY [facility] Last Admin: 11/07/18 13:00 Dose: 0.4 mg Documented by: Review of Systems ROS unobtainable: due to mental status Exam - Constitutional Vitals: Temp Pulse Resp BP Pulse Ox 100 F H 98 H 31 H 128/68 100 11/07/18 12:00 11/07/18 13:00 11/07/18 13:00 11/07/18 13:00 11/07/18 13:00 General appearance: Present: no acute distress, other (Opens eyes to voice and touch, but no response) - EENT Eyes: Present: PERRL, EOM intact - Respiratory Respiratory effort: normal Respiratory: bilateral: CTA (anteriorly) - Cardiovascular Rhythm: regular Heart Sounds: Present: S1 & S2 - Extremities Extremities: No edema - Abdominal General gastrointestinal: Present: soft, non-tender - Rectal Rectal Exam: other (Dark green stool noted in towel, no melena odor) Results - Labs CBC & Chem 7: 11/07/18 15:10 11/07/18 04:13 Labs: Abnormal lab results 11/06/18 11/06/18 11/06/18 Range/Units 17:59 21:21 21:24 Hgb (11.8-15.2) gm/dl Hct (35.5-45.6) % Plt Count (140-440) K/mm3 Seg Neuts % (Manual) (40.0-70.0) % Lymphocytes % (Manual) (13.4-35.0) % Lymphocytes # (Manual) (1.2-5.4) K/mm3 Sodium (137-145) mmol/L Chloride (98-107) mmol/L BUN (9-20) mg/dL Creatinine (0.8-1.5) mg/dL Glucose (75-100) mg/dL POC Glucose 225 H 272 H (70-105) Calcium (8.4-10.2) mg/dL Magnesium (1.7-2.3) mg/dL AST (5-40) units/L Total Creatine Kinase 3538 H (55-170) units/L Total Protein (6.3-8.2) g/dL Albumin (3.9-5) g/dL 11/06/18 11/07/18 11/07/18 Range/Units 21:24 02:01 04:13 Hgb 11.0 L 11.4 L (11.8-15.2) gm/dl Hct 33.4 L 33.8 L (35.5-45.6) % Plt Count 103 L (140-440) K/mm3 Seg Neuts % (Manual) 83.0 H (40.0-70.0) % Lymphocytes % (Manual) 6.0 L (13.4-35.0) % Lymphocytes # (Manual) 0.6 L (1.2-5.4) K/mm3 Sodium (137-145) mmol/L Chloride (98-107) mmol/L BUN (9-20) mg/dL Creatinine (0.8-1.5) mg/dL Glucose (75-100) mg/dL POC Glucose 282 H (70-105) Calcium (8.4-10.2) mg/dL Magnesium (1.7-2.3) mg/dL AST (5-40) units/L Total Creatine Kinase (55-170) units/L Total Protein (6.3-8.2) g/dL Albumin (3.9-5) g/dL 11/07/18 11/07/18 11/07/18 Range/Units 04:13 04:13 05:17 Hgb (11.8-15.2) gm/dl Hct (35.5-45.6) % Plt Count (140-440) K/mm3 Seg Neuts % (Manual) (40.0-70.0) % Lymphocytes % (Manual) (13.4-35.0) % Lymphocytes # (Manual) (1.2-5.4) K/mm3 Sodium 161 H* (137-145) mmol/L Chloride 125.8 H (98-107) mmol/L BUN 80 H (9-20) mg/dL Creatinine 2.4 H (0.8-1.5) mg/dL Glucose 246 H (75-100) mg/dL POC Glucose 256 H (70-105) Calcium 7.4 L (8.4-10.2) mg/dL Magnesium 2.50 H (1.7-2.3) mg/dL AST 106 H (5-40) units/L Total Creatine Kinase 2918 H (55-170) units/L Total Protein 5.7 L (6.3-8.2) g/dL Albumin 2.0 L (3.9-5) g/dL 11/07/18 11/07/18 11/07/18 Range/Units 09:15 13:27 15:10 Hgb 10.2 L (11.8-15.2) gm/dl Hct 31.2 L (35.5-45.6) % Plt Count (140-440) K/mm3 Seg Neuts % (Manual) (40.0-70.0) % Lymphocytes % (Manual) (13.4-35.0) % Lymphocytes # (Manual) (1.2-5.4) K/mm3 Sodium (137-145) mmol/L Chloride (98-107) mmol/L BUN (9-20) mg/dL Creatinine (0.8-1.5) mg/dL Glucose (75-100) mg/dL POC Glucose 287 H 281 H (70-105) Calcium (8.4-10.2) mg/dL Magnesium (1.7-2.3) mg/dL AST (5-40) units/L Total Creatine Kinase (55-170) units/L Total Protein (6.3-8.2) g/dL Albumin (3.9-5) g/dL 11/07/18 Range/Units 16:38 Hgb (11.8-15.2) gm/dl Hct (35.5-45.6) % Plt Count (140-440) K/mm3 Seg Neuts % (Manual) (40.0-70.0) % Lymphocytes % (Manual) (13.4-35.0) % Lymphocytes # (Manual) (1.2-5.4) K/mm3 Sodium (137-145) mmol/L Chloride (98-107) mmol/L BUN (9-20) mg/dL Creatinine (0.8-1.5) mg/dL Glucose (75-100) mg/dL POC Glucose 284 H (70-105) Calcium (8.4-10.2) mg/dL Magnesium (1.7-2.3) mg/dL AST (5-40) units/L Total Creatine Kinase (55-170) units/L Total Protein (6.3-8.2) g/dL Albumin (3.9-5) g/dL Assessment and Plan 1. GI bleed - there is no clear indication of GI bleeding. Patient has dark green stool which does not appear to be consistent with melena. There is a reported history of blood at home from along with vomitus, but it is unclear whether that represented a possible Sade-Tanner tear or other event. There is certainly no indication based on current evaluation that the patient suffered a major GI blood loss. - Proton pump inhibitors - monitor H&H and transfuse as needed - Check stool for occult blood - We will consider upper endoscopy if warranted.
--- NOTE | 2018-11-07 18:51 | Event Note ---
Date: 11/07/18 Per notes, now responsive so no need for me to see him and no need for MRI. Signing off, call for any questions.
--- NOTE | 2018-11-07 21:35 | XRay Report ---
ABDOMEN 1 VIEW(S) INDICATION / CLINICAL INFORMATION: Dobhoff placement. COMPARISON: 10/28/2018 FINDINGS: TUBES / LINES: Dobbhoff tube tip in the mid to distal stomach should be advanced at least 5-10 cm dis tally into the duodenum. BOWEL GAS PATTERN: No significant abnormality. FREE AIR / EXTRALUMINAL GAS: None seen. ADDITIONAL FINDINGS: No significant additional findings. IMPRESSION: 1. DHT as above. Signer Name: Benja Schwab MD Signed: 11/07/2018 9:31 PM Workstation Name: [id number]
[2018-11-07 21:54] LABS: Hematocrit 30.8 % (35.5-45.6); Hemoglobin 10.2 gm/dl (11.8-15.2)
[2018-11-07] MEDS ORDERED: LANTUS SUB-Q SCH (22:00)
--- NOTE | 2018-11-07 22:36 | XRay Report ---
ABDOMEN 1 VIEW(S) INDICATION / CLINICAL INFORMATION: Recheck placement of dobhoff after advancing. COMPARISON: Earlier today FINDINGS: TUBES / LINES: Dobbhoff tube has been repositioned into the second segment of the duodenum. BOWEL GAS PATTERN: No significant abnormality. FREE AIR / EXTRALUMINAL GAS: None seen. ADDITIONAL FINDINGS: No significant additional findings. IMPRESSION: 1. DHT as above. Signer Name: Benja Schwab MD Signed: 11/07/2018 10:32 PM Workstation Name: [id number]
[2018-11-08] MEDS: HumaLOG SUB-Q SCH ×6 (01:23→22:19)
[2018-11-08] MEDS: D5W 1,000 ML IV SCH ×3 (04:07→18:37)
[2018-11-08 05:42] LABS: Basophils % (Auto) 0.3 % (0.0-1.8); Eosinophils # (Auto) 0.1 K/mm3 (0.0-0.4); Eosinophils % (Auto) 0.9 % (0.0-4.3); Hematocrit 29.9 % (35.5-45.6); Hemoglobin 10.2 gm/dl (11.8-15.2); Lymphocytes # (Auto) 0.8 K/mm3 (1.2-5.4); Lymphocytes % (Auto) 7.7 % (13.4-35.0); Mean Corpuscular HGB Conc 34 % (32-34); Mean Corpuscular Volume 92 fl (84-94); Monocytes # (Auto) 0.8 K/mm3 (0.0-0.8); Monocytes % (Auto) 7.5 % (0.0-7.3); Platelet Count 103 K/mm3 (140-440); Red Blood Count 3.26 M/mm3 (3.65-5.03); Red Cell Distribution Width 14.8 % (13.2-15.2)
[2018-11-08 05:50] LABS: Calcium 7.3 mg/dL (8.4-10.2)
[2018-11-08 06:17] LABS: Albumin 2.3 g/dL (3.9-5)
--- NOTE | 2018-11-08 08:57 | Progress Note ---
Assessment and Plan 53 YO Male with DM presents to ED for evaluation. Pt is stuporous st time of my exam and unable to provide history. Pt history taken from EMS as well as ED staff. As per staff, the patient found down and unresponsive in his home. Pt last contact with family was 5 days ago. At that time the patient was in his usual state of health. A well check was conducted, and the patient was unable to answer the door. Law Enforcement was contacted, and gained entry into the home. The patient was subsequently found down, and unresponsive and lying on the kitchen floor covered in fecal matter. EMS notified, and upon arrival the patient was found to have a serum glucose above 500, and in distress. Pt transported to [facility]. Pt seen and evaluated in ED and found to have DKA, Metabolic Encephalopathy, Sepsis suspected secondary to UTI, Rhabdomyolysis, Acidosis, and Acute Kidney Injury. Pt admitted to ICU and initiated on Sepsis protocol, as well as DKA protocol. Nephrology consulted in ED. Pulmonary team consulted in ED. No further history obtainable. No prior admission for review. No medication listed at time of admission for reconciliation. Patient was then admitted and commenced on DKA protocol. Glucose 1088 on admit, now 195. BUN 200 on admit, now 98. Found to be hypernatremic with improved glycemic control. Low T4 and elevarted TSH levels - Sepsis - Fever and white count since resolved. Unclear etiology of sepsis as all cultures negative. Would continue the levofloxacin for now while blood cultures continue to incubate. Would not alter antibiotics at the present time as he is improving. Possible UTI, UA with pyuria but otherwise not significant. UCx negative. - DKA resolved. Continue with insulin therapy Accu-Check NG tube feeding - JAVY due to vasomotor nephropathy - improving IV hydration Nephrology consulted and following - Hypernatremia Increased free water via NG tube - Hypothyroidism Supplement thyroid - UTI will continue dose-reduced levofloxacin. Urine Cx no growth so far - Metabolic encephalopathy - improving able to open to voice command and answers questions appropriately. Continue with treatment of underlying conditions that include, sepsis, DKA and electrolyte imbalance - Rhabdomylosis - improving Cautious IV hydration Serial CK levels - Dark stool - none today stool Hemocult iv pentaprazole Serial H/H iv hydration Type and screen GI consult - DVT and GI prophylaxis with Lovenox and omeprazole - CODE STATUS: Patient is full code - Critical care time: >30 minutes Subjective Date of service: 11/08/18 Principal diagnosis: Ac hypoxemic resp failure; Severe sepsis; DKA; JAVY; Ac encephalopathy; UTI Interval history: Patient seen and examined. opens eyes to voice command. Remains afebrile. Objective - Exam Narrative Exam: Constitutional: Opens eyes to voice commancd. Still Very Ill-looking Head: Normocephalic atraumatic Eyes: Pupils are equal round and reactive to light Nose: No enlarged turbinates, no septal deviation. Mouth: Moist mucous membranes. ON NGT feeding Neck: Supple no thyromegaly. No bruit. No JVD Heart: Regular rate and rhythm, S1-S2 normal. No rubs murmurs or gallop Lungs: Clear to auscultation bilaterally. no rales or rhonchi Abdomen: Soft, nontender. Bowel sound are present. Extremities: No edema, no cyanosis, no clubbing. skin ulcers Neuro: Open eyes on voice command. Answers short question appropriately. Able to wiggle his toes and finger on command Skin: Skin ulcer in the lower extrmities Musculoskeletal system: No joint pain or swelling Hematological: No petechia or subcutanous hemorrhages. Immunological: No multiple septic spots on the skin Lymphatic: No generalized lymphadenopathy Psychiatry: Still lethergic - Constitutional Vitals: Vital Signs - 12hr 11/07/18 11/07/18 11/07/18 21:00 21:30 22:00 Temperature Pulse Rate 96 H 95 H 94 H Pulse Rate [ From Monitor] Respiratory 32 H 31 H 31 H Rate Blood Pressure 118/55 118/55 127/64 O2 Sat by Pulse 99 100 100 Oximetry 11/07/18 11/07/18 11/07/18 22:21 22:30 22:32 Temperature Pulse Rate 95 H 93 H 94 H Pulse Rate [ From Monitor] Respiratory 31 H 29 H 30 H Rate Blood Pressure 127/64 127/64 127/64 O2 Sat by Pulse 97 97 96 Oximetry 11/07/18 11/07/18 11/08/18 23:00 23:30 00:00 Temperature 101.7 F H Pulse Rate 88 98 H 97 H Pulse Rate [ 97 H From Monitor] Respiratory 29 H 30 H 33 H Rate Blood Pressure 108/54 108/54 112/57 O2 Sat by Pulse 97 98 98 Oximetry 11/08/18 11/08/18 11/08/18 00:10 00:30 00:33 Temperature Pulse Rate 95 H 95 H 94 H Pulse Rate [ From Monitor] Respiratory 24 31 H Rate Blood Pressure 112/57 112/57 O2 Sat by Pulse 99 97 Oximetry 11/08/18 11/08/18 11/08/18 01:00 01:30 02:00 Temperature Pulse Rate 91 H 89 Pulse Rate [ From Monitor] Respiratory 32 H 23 Rate Blood Pressure 113/57 113/57 107/65 O2 Sat by Pulse 98 99 100 Oximetry 11/08/18 11/08/18 11/08/18 02:30 03:00 03:30 Temperature Pulse Rate 79 81 92 H Pulse Rate [ From Monitor] Respiratory 21 20 20 Rate Blood Pressure 107/65 95/65 95/65 O2 Sat by Pulse 100 100 100 Oximetry 11/08/18 11/08/18 11/08/18 03:41 04:00 04:28 Temperature 97.5 F L Pulse Rate 81 80 Pulse Rate [ 81 From Monitor] Respiratory 18 21 Rate Blood Pressure 131/67 131/67 O2 Sat by Pulse 100 100 Oximetry 11/08/18 11/08/18 11/08/18 04:30 05:00 05:30 Temperature Pulse Rate 86 77 79 Pulse Rate [ From Monitor] Respiratory 20 19 20 Rate Blood Pressure 131/67 130/68 131/67 O2 Sat by Pulse 100 100 100 Oximetry 11/08/18 11/08/18 11/08/18 06:00 06:30 07:00 Temperature Pulse Rate 86 88 87 Pulse Rate [ From Monitor] Respiratory 21 22 26 H Rate Blood Pressure 139/74 139/74 133/69 O2 Sat by Pulse 98 99 100 Oximetry 11/08/18 11/08/18 11/08/18 07:30 08:00 08:19 Temperature 98.7 F Pulse Rate 83 97 H Pulse Rate [ From Monitor] Respiratory 22 24 Rate Blood Pressure 133/69 131/70 O2 Sat by Pulse 99 100 98 Oximetry - Labs CBC & Chem 7: 11/08/18 04:30 11/08/18 04:30 Labs: Abnormal lab results 11/07/18 11/07/18 11/07/18 Range/Units 09:15 13:27 15:10 RBC (3.65-5.03) M/mm3 Hgb 10.2 L (11.8-15.2) gm/dl Hct 31.2 L (35.5-45.6) % Plt Count (140-440) K/mm3 Lymph % (Auto) (13.4-35.0) % [place] % (Auto) (0.0-7.3) % Lymph # (1.2-5.4) K/mm3 Seg Neutrophils % (40.0-70.0) % Seg Neutrophils # (1.8-7.7) K/mm3 Sodium (137-145) mmol/L Potassium (3.6-5.0) mmol/L Chloride (98-107) mmol/L BUN (9-20) mg/dL Creatinine (0.8-1.5) mg/dL Glucose (75-100) mg/dL POC Glucose 287 H 281 H (70-105) Calcium (8.4-10.2) mg/dL AST (5-40) units/L Total Creatine Kinase (55-170) units/L Total Protein (6.3-8.2) g/dL Albumin (3.9-5) g/dL 11/07/18 11/07/18 11/07/18 Range/Units 16:38 21:08 21:41 RBC (3.65-5.03) M/mm3 Hgb 10.2 L (11.8-15.2) gm/dl Hct 30.8 L (35.5-45.6) % Plt Count (140-440) K/mm3 Lymph % (Auto) (13.4-35.0) % [place] % (Auto) (0.0-7.3) % Lymph # (1.2-5.4) K/mm3 Seg Neutrophils % (40.0-70.0) % Seg Neutrophils # (1.8-7.7) K/mm3 Sodium (137-145) mmol/L Potassium (3.6-5.0) mmol/L Chloride (98-107) mmol/L BUN (9-20) mg/dL Creatinine (0.8-1.5) mg/dL Glucose (75-100) mg/dL POC Glucose 284 H 349 H (70-105) Calcium (8.4-10.2) mg/dL AST (5-40) units/L Total Creatine Kinase (55-170) units/L Total Protein (6.3-8.2) g/dL Albumin (3.9-5) g/dL 11/08/18 11/08/18 11/08/18 Range/Units 01:24 04:30 04:30 RBC 3.26 L (3.65-5.03) M/mm3 Hgb 10.2 L (11.8-15.2) gm/dl Hct 29.9 L (35.5-45.6) % Plt Count 103 L (140-440) K/mm3 Lymph % (Auto) 7.7 L (13.4-35.0) % [place] % (Auto) 7.5 H (0.0-7.3) % Lymph # 0.8 L (1.2-5.4) K/mm3 Seg Neutrophils % 83.6 H (40.0-70.0) % Seg Neutrophils # 8.6 H (1.8-7.7) K/mm3 Sodium 157 H (137-145) mmol/L Potassium 3.5 L (3.6-5.0) mmol/L Chloride 119.8 H (98-107) mmol/L BUN 52 H (9-20) mg/dL Creatinine 1.9 H (0.8-1.5) mg/dL Glucose 244 H (75-100) mg/dL POC Glucose 363 H (70-105) Calcium 7.3 L (8.4-10.2) mg/dL AST 88 H (5-40) units/L Total Creatine Kinase (55-170) units/L Total Protein 4.4 L D (6.3-8.2) g/dL Albumin 2.3 L (3.9-5) g/dL 11/08/18 11/08/18 Range/Units 04:30 05:34 RBC (3.65-5.03) M/mm3 Hgb (11.8-15.2) gm/dl Hct (35.5-45.6) % Plt Count (140-440) K/mm3 Lymph % (Auto) (13.4-35.0) % [place] % (Auto) (0.0-7.3) % Lymph # (1.2-5.4) K/mm3 Seg Neutrophils % (40.0-70.0) % Seg Neutrophils # (1.8-7.7) K/mm3 Sodium (137-145) mmol/L Potassium (3.6-5.0) mmol/L Chloride (98-107) mmol/L BUN (9-20) mg/dL Creatinine (0.8-1.5) mg/dL Glucose (75-100) mg/dL POC Glucose 250 H (70-105) Calcium (8.4-10.2) mg/dL AST (5-40) units/L Total Creatine Kinase 1829 H (55-170) units/L Total Protein (6.3-8.2) g/dL Albumin (3.9-5) g/dL
--- NOTE | 2018-11-08 09:28 | Progress Note ---
Assessment and Plan 1. GI bleed - there is no clear indication of GI bleeding. H/H stable. Patient has brown stool. There is a reported history of blood at home from along with vomitus, but it is unclear whether that represented a possible Sade-Tanner tear or other event. There is certainly no indication based on current evaluation that the patient suffered a major GI blood loss. - Proton pump inhibitors - monitor H&H and transfuse as needed - Check stool for occult blood - We will consider upper endoscopy if warranted. Will sign off. Please call if needed. Subjective Date of service: 11/08/18 Principal diagnosis: Ac hypoxemic resp failure; Severe sepsis; DKA; JAVY; Ac encephalopathy; UTI Interval history: Pt awake and alert. Denies GI complaints. Has Dobhoff in place and getting TF. Per RN, pt had small amount of emesis during mouth care - greenish bile. Also, she states pt had brown stool today. Objective - Constitutional Vitals: Vital Signs - 12hr 11/07/18 11/07/18 11/07/18 21:30 22:00 22:21 Temperature Pulse Rate 95 H 94 H 95 H Pulse Rate [ From Monitor] Respiratory 31 H 31 H 31 H Rate Blood Pressure 118/55 127/64 127/64 O2 Sat by Pulse 100 100 97 Oximetry 11/07/18 11/07/18 11/07/18 22:30 22:32 23:00 Temperature Pulse Rate 93 H 94 H 88 Pulse Rate [ From Monitor] Respiratory 29 H 30 H 29 H Rate Blood Pressure 127/64 127/64 108/54 O2 Sat by Pulse 97 96 97 Oximetry 11/07/18 11/08/18 11/08/18 23:30 00:00 00:10 Temperature 101.7 F H Pulse Rate 98 H 97 H 95 H Pulse Rate [ 97 H From Monitor] Respiratory 30 H 33 H 24 Rate Blood Pressure 108/54 112/57 112/57 O2 Sat by Pulse 98 98 99 Oximetry 11/08/18 11/08/18 11/08/18 00:30 00:33 01:00 Temperature Pulse Rate 95 H 94 H 91 H Pulse Rate [ From Monitor] Respiratory 31 H 32 H Rate Blood Pressure 112/57 113/57 O2 Sat by Pulse 97 98 Oximetry 11/08/18 11/08/18 11/08/18 01:30 02:00 02:30 Temperature Pulse Rate 89 79 Pulse Rate [ From Monitor] Respiratory 23 21 Rate Blood Pressure 113/57 107/65 107/65 O2 Sat by Pulse 99 100 100 Oximetry 11/08/18 11/08/18 11/08/18 03:00 03:30 03:41 Temperature 97.5 F L Pulse Rate 81 92 H Pulse Rate [ From Monitor] Respiratory 20 20 Rate Blood Pressure 95/65 95/65 O2 Sat by Pulse 100 100 Oximetry 11/08/18 11/08/18 11/08/18 04:00 04:28 04:30 Temperature Pulse Rate 81 80 86 Pulse Rate [ 81 From Monitor] Respiratory 18 21 20 Rate Blood Pressure 131/67 131/67 131/67 O2 Sat by Pulse 100 100 100 Oximetry 11/08/18 11/08/18 11/08/18 05:00 05:30 06:00 Temperature Pulse Rate 77 79 86 Pulse Rate [ From Monitor] Respiratory 19 20 21 Rate Blood Pressure 130/68 131/67 139/74 O2 Sat by Pulse 100 100 98 Oximetry 11/08/18 11/08/18 11/08/18 06:30 07:00 07:30 Temperature Pulse Rate 88 87 83 Pulse Rate [ From Monitor] Respiratory 22 26 H 22 Rate Blood Pressure 139/74 133/69 133/69 O2 Sat by Pulse 99 100 99 Oximetry 11/08/18 11/08/18 08:00 08:19 Temperature 98.7 F Pulse Rate 97 H Pulse Rate [ 94 H From Monitor] Respiratory 22 Rate Blood Pressure 131/70 O2 Sat by Pulse 100 98 Oximetry General appearance: Present: no acute distress - EENT Eyes: PERRL, EOM intact ENT: hearing intact - Respiratory Respiratory effort: normal - Gastrointestinal General gastrointestinal: Present: soft, non-tender - Labs CBC & Chem 7: 11/08/18 04:30 11/08/18 04:30 Labs: Abnormal lab results 11/07/18 11/07/18 11/07/18 Range/Units 13:27 15:10 16:38 RBC (3.65-5.03) M/mm3 Hgb 10.2 L (11.8-15.2) gm/dl Hct 31.2 L (35.5-45.6) % Plt Count (140-440) K/mm3 Lymph % (Auto) (13.4-35.0) % Gentry % (Auto) (0.0-7.3) % Lymph # (1.2-5.4) K/mm3 Seg Neutrophils % (40.0-70.0) % Seg Neutrophils # (1.8-7.7) K/mm3 Sodium (137-145) mmol/L Potassium (3.6-5.0) mmol/L Chloride (98-107) mmol/L BUN (9-20) mg/dL Creatinine (0.8-1.5) mg/dL Glucose (75-100) mg/dL POC Glucose 281 H 284 H (70-105) Calcium (8.4-10.2) mg/dL AST (5-40) units/L Total Creatine Kinase (55-170) units/L Total Protein (6.3-8.2) g/dL Albumin (3.9-5) g/dL 11/07/18 11/07/18 11/08/18 Range/Units 21:08 21:41 01:24 RBC (3.65-5.03) M/mm3 Hgb 10.2 L (11.8-15.2) gm/dl Hct 30.8 L (35.5-45.6) % Plt Count (140-440) K/mm3 Lymph % (Auto) (13.4-35.0) % Gentry % (Auto) (0.0-7.3) % Lymph # (1.2-5.4) K/mm3 Seg Neutrophils % (40.0-70.0) % Seg Neutrophils # (1.8-7.7) K/mm3 Sodium (137-145) mmol/L Potassium (3.6-5.0) mmol/L Chloride (98-107) mmol/L BUN (9-20) mg/dL Creatinine (0.8-1.5) mg/dL Glucose (75-100) mg/dL POC Glucose 349 H 363 H (70-105) Calcium (8.4-10.2) mg/dL AST (5-40) units/L Total Creatine Kinase (55-170) units/L Total Protein (6.3-8.2) g/dL Albumin (3.9-5) g/dL 11/08/18 11/08/18 11/08/18 Range/Units 04:30 04:30 04:30 RBC 3.26 L (3.65-5.03) M/mm3 Hgb 10.2 L (11.8-15.2) gm/dl Hct 29.9 L (35.5-45.6) % Plt Count 103 L (140-440) K/mm3 Lymph % (Auto) 7.7 L (13.4-35.0) % Gentry % (Auto) 7.5 H (0.0-7.3) % Lymph # 0.8 L (1.2-5.4) K/mm3 Seg Neutrophils % 83.6 H (40.0-70.0) % Seg Neutrophils # 8.6 H (1.8-7.7) K/mm3 Sodium 157 H (137-145) mmol/L Potassium 3.5 L (3.6-5.0) mmol/L Chloride 119.8 H (98-107) mmol/L BUN 52 H (9-20) mg/dL Creatinine 1.9 H (0.8-1.5) mg/dL Glucose 244 H (75-100) mg/dL POC Glucose (70-105) Calcium 7.3 L (8.4-10.2) mg/dL AST 88 H (5-40) units/L Total Creatine Kinase 1829 H (55-170) units/L Total Protein 4.4 L D (6.3-8.2) g/dL Albumin 2.3 L (3.9-5) g/dL 11/08/18 11/08/18 Range/Units 05:34 09:12 RBC (3.65-5.03) M/mm3 Hgb (11.8-15.2) gm/dl Hct (35.5-45.6) % Plt Count (140-440) K/mm3 Lymph % (Auto) (13.4-35.0) % Gentry % (Auto) (0.0-7.3) % Lymph # (1.2-5.4) K/mm3 Seg Neutrophils % (40.0-70.0) % Seg Neutrophils # (1.8-7.7) K/mm3 Sodium (137-145) mmol/L Potassium (3.6-5.0) mmol/L Chloride (98-107) mmol/L BUN (9-20) mg/dL Creatinine (0.8-1.5) mg/dL Glucose (75-100) mg/dL POC Glucose 250 H 299 H (70-105) Calcium (8.4-10.2) mg/dL AST (5-40) units/L Total Creatine Kinase (55-170) units/L Total Protein (6.3-8.2) g/dL Albumin (3.9-5) g/dL Medications & Allergies - Medications Allergies/Adverse Reactions: Allergies No Known Allergies Allergy (Unverified 11/04/18 15:22) Home Medications: Home Medications Medication Instructions Recorded Confirmed Last Taken Type Glimepiride 4 mg PO BID 11/06/18 11/06/18 Unknown History HYDROcodone/ACETAMINOPHEN 5 - 325 mg PO Q4-6H PRN 11/06/18 11/06/18 Unknown History Ibuprofen 800 mg PO Q8HR PRN 11/06/18 11/06/18 Unknown History Lisinopril 2.5 mg PO DAILY 11/06/18 11/06/18 Unknown History Metformin HCl 1,000 mg PO BID 11/06/18 11/06/18 Unknown History NovoLIN N 5 unit SUB-Q BID MDD x 90days 11/06/18 11/06/18 Unknown History Pravastatin Sodium 20 mg PO BID 11/06/18 11/06/18 Unknown History glipiZIDE 10 mg PO BID 11/06/18 11/06/18 Unknown History Active Medications: Generic Name Dose Route Start Last Admin Trade Name Freq PRN Reason Stop Dose Admin Albuterol 2.5 mg 11/04/18 17:42 Proventil IH Q3H PRN Shortness Of Breath Lipase/Protease/Amylase 1 each 11/06/18 15:57 Pancreaze 10,500 Unit FEEDTUBE PRN PRN For Clogged Feeding Tube Dextrose 0 ml 11/04/18 15:40 D50w (25gm) Syringe IV PRN PRN Hypoglycemia Heparin Sodium (Porcine) 5,000 unit 11/04/18 22:00 11/07/18 21:25 Heparin SUB-Q 5,000 unit Q12HR MARIEL Administration Dextrose 1,000 mls @ 150 mls/hr 11/07/18 15:00 11/08/18 04:07 D5w IV 150 mls/hr DIRECT MARIEL Administration Levofloxacin/Dextrose 250 mg in 50 mls @ 50 mls/hr 11/08/18 10:00 Levaquin 250mg/50ml IV Q24HR MARIEL Insulin Glargine 35 units 11/08/18 22:00 Lantus SUB-Q QHS MARIEL Insulin Glargine 10 units 11/08/18 10:00 Lantus SUB-Q 11/08/18 10:01 ONCE ONE Insulin Human Lispro 0 unit 11/05/18 17:00 11/08/18 09:07 Humalog SUB-Q 4 unit Q4H MARIEL Administration Protocol Lansoprazole 30 mg 11/08/18 10:00 Prevacid Solutab FEEDTUBE BID MARIEL Simple Syrup 15 ml 11/06/18 15:57 Simple Syrup FEEDTUBE PRN PRN Hypoglycemia Simple Syrup 30 ml 11/06/18 15:57 Simple Syrup FEEDTUBE PRN PRN Hypoglycemia Sodium Bicarbonate 325 mg 11/06/18 15:57 Sodium Bicarbonate FEEDTUBE PRN PRN For Clogged Feeding Tube Sodium Chloride 10 ml 11/04/18 22:00 11/07/18 21:25 Sodium Chloride Flush Syringe 10 Ml IV 10 ml BID MARIEL Administration Sodium Chloride 10 ml 11/04/18 17:42 Sodium Chloride Flush Syringe 10 Ml IV PRN PRN LINE FLUSH Tamsulosin HCl 0.4 mg 11/07/18 13:00 11/07/18 13:00 Flomax PO 0.4 mg QDAY MARIEL Administration
--- NOTE | 2018-11-08 09:47 | Progress Note ---
Assessment and Plan Acute hypoxemic respiratory failure, on supplemental oxygen. Severe sepsis with shock (unspecified) Diabetic ketoacidosis. Acute kidney injury, likely secondary to rhabdomyolysis. Rhabdomyolysis. Acute encephalopathy, likely toxic metabolic. Hyperkalemia. Possible urinary tract infection. Severe metabolic acidosis. Possible hypothyroidism. Leukocytosis - continue supplemental oxygen as needed to keep O2 sat's > 90% - continue free water and D5W re: hypernatremia - antibiotics per ID - continue long acting insulin therapy with SSI for target BG < 180 mg/dl acutely - Azotemia improving; continue gentle hydration - avoid nephrotoxins and renally adjust all medications as needed - wound care per WCT - continue GI & VTE prophylaxis -conitnue enteral nutrition as tolerated, aspiration precautions -SOLE DYER to evalute swallow function and for dysphagia - prn bronchodilators with pulmonary hygiene per RT - Prevention of delirium, maintenance of sleep-wake cycle - OK to transfer out of ICU, transfer to IMCU Subjective Date of service: 11/08/18 Principal diagnosis: Ac hypoxemic resp failure; Severe sepsis; DKA; JAVY; Ac encephalopathy; UTI Interval history: Patient is seen today for: Acute hypoxemic respiratory failure; Severe sepsis with shock; Diabetic ketoacidosis; Acute kidney injury; Rhabdomyolysis; Acute en cephalopathy, likely toxic metabolic; Hyperkalemia; Possible urinary tract infection; Severe metabolic acidosis; Possible hypothyroidism; Leukocytosis Seen and examined at bedside; 24hour events reviewed; nursing and respiratory care staff consulted; no adverse overnight events reported to me; resting peacefully in bed; Objective - Exam Narrative Exam: Constitutional: awake, no distress, following commands Head, Ears, Nose: Normocephalic, atraumatic. External ears, nose normal Eyes: Conjunctivae/corneas clear. No icterus. No ptosis. Neck: Supple, no meningeal signs Oral: poor, moist mucous membranes Cardiovascular: S1, S2 normal. Normal rhythm Respiratory: Good air entry, clear to auscultation bilaterally GI: Soft, non-tender; bowel sounds normal. No peritoneal signs Musculoskeletal: No pedal edema, Skin: No rash or abscess Hem/Lymphatic: No palpable cervical or supraclavicular nodes. No lymphangitis Psych: no agitation Neurological: Moves all extremities, no focal defects Vital Signs - 12hr 11/07/18 11/07/18 11/07/18 22:00 22:21 22:30 Temperature Pulse Rate 94 H 95 H 93 H Pulse Rate [ From Monitor] Respiratory 31 H 31 H 29 H Rate Blood Pressure 127/64 127/64 127/64 O2 Sat by Pulse 100 97 97 Oximetry 11/07/18 11/07/18 11/07/18 22:32 23:00 23:30 Temperature Pulse Rate 94 H 88 98 H Pulse Rate [ From Monitor] Respiratory 30 H 29 H 30 H Rate Blood Pressure 127/64 108/54 108/54 O2 Sat by Pulse 96 97 98 Oximetry 11/08/18 11/08/18 11/08/18 00:00 00:10 00:30 Temperature 101.7 F H Pulse Rate 97 H 95 H 95 H Pulse Rate [ 97 H From Monitor] Respiratory 33 H 24 31 H Rate Blood Pressure 112/57 112/57 112/57 O2 Sat by Pulse 98 99 97 Oximetry 11/08/18 11/08/18 11/08/18 00:33 01:00 01:30 Temperature Pulse Rate 94 H 91 H Pulse Rate [ From Monitor] Respiratory 32 H Rate Blood Pressure 113/57 113/57 O2 Sat by Pulse 98 99 Oximetry 11/08/18 11/08/18 11/08/18 02:00 02:30 03:00 Temperature Pulse Rate 89 79 81 Pulse Rate [ From Monitor] Respiratory 23 21 20 Rate Blood Pressure 107/65 107/65 95/65 O2 Sat by Pulse 100 100 100 Oximetry 11/08/18 11/08/18 11/08/18 03:30 03:41 04:00 Temperature 97.5 F L Pulse Rate 92 H 81 Pulse Rate [ 81 From Monitor] Respiratory 20 18 Rate Blood Pressure 95/65 131/67 O2 Sat by Pulse 100 100 Oximetry 11/08/18 11/08/18 11/08/18 04:28 04:30 05:00 Temperature Pulse Rate 80 86 77 Pulse Rate [ From Monitor] Respiratory 21 20 19 Rate Blood Pressure 131/67 131/67 130/68 O2 Sat by Pulse 100 100 100 Oximetry 11/08/18 11/08/18 11/08/18 05:30 06:00 06:30 Temperature Pulse Rate 79 86 88 Pulse Rate [ From Monitor] Respiratory 20 21 22 Rate Blood Pressure 131/67 139/74 139/74 O2 Sat by Pulse 100 98 99 Oximetry 11/08/18 11/08/18 11/08/18 07:00 07:30 08:00 Temperature 98.7 F Pulse Rate 87 83 97 H Pulse Rate [ 94 H From Monitor] Respiratory 26 H 22 22 Rate Blood Pressure 133/69 133/69 131/70 O2 Sat by Pulse 100 99 100 Oximetry 11/08/18 08:19 Temperature Pulse Rate Pulse Rate [ From Monitor] Respiratory Rate Blood Pressure O2 Sat by Pulse 98 Oximetry CBC and BMP: 11/09/18 04:33 11/09/18 04:33 ABG, PT/INR, D-dimer: ABG POC ABG pH 7.432 (7.35-7.45) 11/05/18 17:08 POC ABG pCO2 32.3 (35-45) L 11/05/18 17:08 POC ABG HCO3 21.5 (22-26 mml/L) 11/05/18 17:08 POC ABG Total CO2 23 (23-27mmol/L) 11/05/18 17:08 POC ABG O2 Sat 85 11/05/18 17:08 PT/INR, D-dimer PT 15.6 Sec. (12.2-14.9) H 11/04/18 16:05 INR 1.27 (0.87-1.13) H 11/04/18 16:05 Abnormal lab findings: Abnormal Labs 11/04/18 11/04/18 11/04/18 15:23 15:35 16:05 WBC 12.6 H RBC Hgb Hct Plt Count Lymph % (Auto) [place] % (Auto) Lymph # Seg Neutrophils % Seg Neuts % (Manual) 84.0 H Lymphocytes % (Manual) 1.0 L Seg Neutrophils # Seg Neutrophils # Man 10.6 H Lymphocytes # (Manual) 0.1 L PT INR POC ABG pCO2 VBG pH Sodium Potassium Chloride Carbon Dioxide BUN Creatinine Glucose POC Glucose > 500 H Lactic Acid Calcium Phosphorus Magnesium AST Total Creatine Kinase C-Reactive Protein Total Protein Albumin TSH Free T4 PTH Intact Urine WBC (Auto) 12.0 H Urine Creatinine Salicylates Acetaminophen 11/04/18 11/04/18 11/04/18 16:05 16:05 16:05 WBC RBC Hgb Hct Plt Count Lymph % (Auto) [place] % (Auto) Lymph # Seg Neutrophils % Seg Neuts % (Manual) Lymphocytes % (Manual) Seg Neutrophils # Seg Neutrophils # Man Lymphocytes # (Manual) PT 15.6 H INR 1.27 H POC ABG pCO2 VBG pH Sodium 153 H Potassium 6.2 H* Chloride Carbon Dioxide 18 L BUN 200 H Creatinine 6.8 H Glucose 1088 H* POC Glucose Lactic Acid 2.80 H* Calcium 7.2 L Phosphorus Magnesium AST Total Creatine Kinase C-Reactive Protein Total Protein Albumin 3.1 L TSH Free T4 PTH Intact Urine WBC (Auto) Urine Creatinine Salicylates Acetaminophen 11/04/18 11/04/18 11/04/18 16:05 16:05 16:05 WBC RBC Hgb Hct Plt Count Lymph % (Auto) [place] % (Auto) Lymph # Seg Neutrophils % Seg Neuts % (Manual) Lymphocytes % (Manual) Seg Neutrophils # Seg Neutrophils # Man Lymphocytes # (Manual) PT INR POC ABG pCO2 VBG pH 7.245 L Sodium Potassium Chloride Carbon Dioxide BUN Creatinine Glucose POC Glucose Lactic Acid Calcium Phosphorus 13.80 H Magnesium 3.60 H AST Total Creatine Kinase C-Reactive Protein Total Protein Albumin TSH 0.169 L Free T4 0.68 L PTH Intact Urine WBC (Auto) Urine Creatinine Salicylates Acetaminophen 11/04/18 11/04/18 11/04/18 16:05 16:48 19:40 WBC RBC Hgb Hct Plt Count Lymph % (Auto) [place] % (Auto) Lymph # Seg Neutrophils % Seg Neuts % (Manual) Lymphocytes % (Manual) Seg Neutrophils # Seg Neutrophils # Man Lymphocytes # (Manual) PT INR POC ABG pCO2 VBG pH Sodium Potassium Chloride Carbon Dioxide BUN Creatinine Glucose POC Glucose > 500 H 458 H Lactic Acid Calcium Phosphorus Magnesium AST Total Creatine Kinase 1857 H C-Reactive Protein Total Protein Albumin TSH Free T4 PTH Intact Urine WBC (Auto) Urine Creatinine Salicylates Acetaminophen 11/04/18 11/04/18 11/04/18 20:29 20:29 20:29 WBC RBC Hgb Hct Plt Count Lymph % (Auto) [place] % (Auto) Lymph # Seg Neutrophils % Seg Neuts % (Manual) Lymphocytes % (Manual) Seg Neutrophils # Seg Neutrophils # Man Lymphocytes # (Manual) PT INR POC ABG pCO2 VBG pH Sodium 163 H* D Potassium Chloride 121.4 H Carbon Dioxide 21 L BUN 166 H Creatinine 5.6 H Glucose 513 H* POC Glucose Lactic Acid 3.30 H* 3.30 H* Calcium 6.4 L Phosphorus Magnesium AST Total Creatine Kinase C-Reactive Protein Total Protein Albumin TSH Free T4 PTH Intact Urine WBC (Auto) Urine Creatinine Salicylates Acetaminophen 11/04/18 11/04/18 11/04/18 20:55 21:03 22:00 WBC RBC Hgb Hct Plt Count Lymph % (Auto) [place] % (Auto) Lymph # Seg Neutrophils % Seg Neuts % (Manual) Lymphocytes % (Manual) Seg Neutrophils # Seg Neutrophils # Man Lymphocytes # (Manual) PT INR POC ABG pCO2 VBG pH Sodium Potassium Chloride Carbon Dioxide BUN Creatinine Glucose POC Glucose 496 H Lactic Acid 3.60 H* Calcium Phosphorus Magnesium AST Total Creatine Kinase C-Reactive Protein Total Protein Albumin TSH Free T4 PTH Intact Urine WBC (Auto) Urine Creatinine 58.1 H Salicylates Acetaminophen 11/04/18 11/04/18 11/04/18 22:04 23:07 23:47 WBC RBC Hgb Hct Plt Count Lymph % (Auto) [place] % (Auto) Lymph # Seg Neutrophils % Seg Neuts % (Manual) Lymphocytes % (Manual) Seg Neutrophils # Seg Neutrophils # Man Lymphocytes # (Manual) PT INR POC ABG pCO2 VBG pH Sodium 170 H* Potassium Chloride 127.1 H Carbon Dioxide BUN 164 H Creatinine 5.2 H Glucose 213 H POC Glucose 357 H 306 H Lactic Acid Calcium 6.5 L Phosphorus Magnesium AST Total Creatine Kinase C-Reactive Protein Total Protein Albumin TSH Free T4 PTH Intact Urine WBC (Auto) Urine Creatinine Salicylates Acetaminophen 11/04/18 11/05/18 11/05/18 23:47 00:04 00:09 WBC RBC Hgb Hct Plt Count Lymph % (Auto) [place] % (Auto) Lymph # Seg Neutrophils % Seg Neuts % (Manual) Lymphocytes % (Manual) Seg Neutrophils # Seg Neutrophils # Man Lymphocytes # (Manual) PT INR POC ABG pCO2 VBG pH Sodium 163 H* Potassium Chloride 127.5 H Carbon Dioxide BUN 117 H Creatinine 3.3 H Glucose 235 H POC Glucose 219 H Lactic Acid 3.20 H* Calcium 6.8 L Phosphorus Magnesium AST Total Creatine Kinase C-Reactive Protein Total Protein Albumin TSH Free T4 PTH Intact Urine WBC (Auto) Urine Creatinine Salicylates Acetaminophen 11/05/18 11/05/18 11/05/18 00:59 03:13 03:52 WBC RBC Hgb Hct Plt Count Lymph % (Auto) [place] % (Auto) Lymph # Seg Neutrophils % Seg Neuts % (Manual) Lymphocytes % (Manual) Seg Neutrophils # Seg Neutrophils # Man Lymphocytes # (Manual) PT INR POC ABG pCO2 VBG pH Sodium Potassium Chloride Carbon Dioxide BUN Creatinine Glucose POC Glucose 204 H 124 H Lactic Acid Calcium Phosphorus Magnesium AST Total Creatine Kinase 1680 H C-Reactive Protein Total Protein Albumin TSH Free T4 PTH Intact Urine WBC (Auto) Urine Creatinine Salicylates Acetaminophen 11/05/18 11/05/18 11/05/18 03:52 04:25 05:11 WBC RBC Hgb Hct Plt Count Lymph % (Auto) [place] % (Auto) Lymph # Seg Neutrophils % Seg Neuts % (Manual) Lymphocytes % (Manual) Seg Neutrophils # Seg Neutrophils # Man Lymphocytes # (Manual) PT INR POC ABG pCO2 VBG pH Sodium 169 H* Potassium Chloride 126.2 H Carbon Dioxide BUN 156 H Creatinine 4.7 H Glucose 128 H POC Glucose 150 H 173 H Lactic Acid Calcium 6.3 L Phosphorus Magnesium AST Total Creatine Kinase C-Reactive Protein Total Protein Albumin TSH Free T4 PTH Intact Urine WBC (Auto) Urine Creatinine Salicylates Acetaminophen 11/05/18 11/05/18 11/05/18 06:05 06:58 07:48 WBC RBC Hgb Hct Plt Count Lymph % (Auto) [place] % (Auto) Lymph # Seg Neutrophils % Seg Neuts % (Manual) Lymphocytes % (Manual) Seg Neutrophils # Seg Neutrophils # Man Lymphocytes # (Manual) PT INR POC ABG pCO2 VBG pH Sodium Potassium Chloride Carbon Dioxide BUN Creatinine Glucose POC Glucose 136 H 152 H 177 H Lactic Acid Calcium Phosphorus Magnesium AST Total Creatine Kinase C-Reactive Protein Total Protein Albumin TSH Free T4 PTH Intact Urine WBC (Auto) Urine Creatinine Salicylates Acetaminophen 11/05/18 11/05/18 11/05/18 08:21 08:21 08:23 WBC RBC Hgb Hct Plt Count Lymph % (Auto) [place] % (Auto) Lymph # Seg Neutrophils % Seg Neuts % (Manual) Lymphocytes % (Manual) Seg Neutrophils # Seg Neutrophils # Man Lymphocytes # (Manual) PT INR POC ABG pCO2 VBG pH Sodium 171 H* Potassium Chloride 128.9 H Carbon Dioxide BUN 149 H Creatinine 4.5 H Glucose 159 H POC Glucose 157 H Lactic Acid Calcium 6.7 L Phosphorus Magnesium AST Total Creatine Kinase C-Reactive Protein Total Protein Albumin TSH Free T4 PTH Intact 119.3 H Urine WBC (Auto) Urine Creatinine Salicylates Acetaminophen 11/05/18 11/05/18 11/05/18 10:21 11:12 12:37 WBC RBC Hgb Hct Plt Count Lymph % (Auto) [place] % (Auto) Lymph # Seg Neutrophils % Seg Neuts % (Manual) Lymphocytes % (Manual) Seg Neutrophils # Seg Neutrophils # Man Lymphocytes # (Manual) PT INR POC ABG pCO2 VBG pH Sodium Potassium Chloride Carbon Dioxide BUN Creatinine Glucose POC Glucose 171 H 155 H 145 H Lactic Acid Calcium Phosphorus Magnesium AST Total Creatine Kinase C-Reactive Protein Total Protein Albumin TSH Free T4 PTH Intact Urine WBC (Auto) Urine Creatinine Salicylates Acetaminophen 11/05/18 11/05/18 11/05/18 13:24 13:47 14:42 WBC RBC Hgb Hct Plt Count Lymph % (Auto) [place] % (Auto) Lymph # Seg Neutrophils % Seg Neuts % (Manual) Lymphocytes % (Manual) Seg Neutrophils # Seg Neutrophils # Man Lymphocytes # (Manual) PT INR POC ABG pCO2 VBG pH Sodium 167 H* Potassium Chloride 131.6 H Carbon Dioxide BUN 130 H Creatinine 3.8 H Glucose 136 H POC Glucose 137 H 133 H Lactic Acid Calcium 6.4 L Phosphorus Magnesium AST Total Creatine Kinase C-Reactive Protein Total Protein Albumin TSH Free T4 PTH Intact Urine WBC (Auto) Urine Creatinine Salicylates Acetaminophen 11/05/18 11/05/18 11/05/18 16:55 17:08 18:14 WBC RBC Hgb Hct Plt Count Lymph % (Auto) [place] % (Auto) Lymph # Seg Neutrophils % Seg Neuts % (Manual) Lymphocytes % (Manual) Seg Neutrophils # Seg Neutrophils # Man Lymphocytes # (Manual) PT INR POC ABG pCO2 32.3 L VBG pH Sodium Potassium Chloride Carbon Dioxide BUN Creatinine Glucose POC Glucose 194 H 195 H Lactic Acid Calcium Phosphorus Magnesium AST Total Creatine Kinase C-Reactive Protein Total Protein Albumin TSH Free T4 PTH Intact Urine WBC (Auto) Urine Creatinine Salicylates Acetaminophen 11/05/18 11/05/18 11/05/18 18:35 18:35 18:35 WBC RBC Hgb Hct Plt Count Lymph % (Auto) [place] % (Auto) Lymph # Seg Neutrophils % Seg Neuts % (Manual) Lymphocytes % (Manual) Seg Neutrophils # Seg Neutrophils # Man Lymphocytes # (Manual) PT INR POC ABG pCO2 VBG pH Sodium Potassium Chloride Carbon Dioxide BUN Creatinine Glucose POC Glucose Lactic Acid Calcium Phosphorus Magnesium AST Total Creatine Kinase C-Reactive Protein 19.50 H Total Protein Albumin TSH Free T4 PTH Intact Urine WBC (Auto) Urine Creatinine Salicylates < 0.3 L Acetaminophen < 5.0 L 11/05/18 11/06/18 11/06/18 21:09 01:36 04:50 WBC RBC Hgb 11.3 L Hct 32.8 L D Plt Count 110 L Lymph % (Auto) [place] % (Auto) Lymph # Seg Neutrophils % Seg Neuts % (Manual) Lymphocytes % (Manual) Seg Neutrophils # Seg Neutrophils # Man Lymphocytes # (Manual) PT INR POC ABG pCO2 VBG pH Sodium Potassium Chloride Carbon Dioxide BUN Creatinine Glucose POC Glucose 250 H 289 H Lactic Acid Calcium Phosphorus Magnesium AST Total Creatine Kinase C-Reactive Protein Total Protein Albumin TSH Free T4 PTH Intact Urine WBC (Auto) Urine Creatinine Salicylates Acetaminophen 11/06/18 11/06/18 11/06/18 04:50 04:50 05:14 WBC RBC Hgb Hct Plt Count Lymph % (Auto) [place] % (Auto) Lymph # Seg Neutrophils % Seg Neuts % (Manual) Lymphocytes % (Manual) Seg Neutrophils # Seg Neutrophils # Man Lymphocytes # (Manual) PT INR POC ABG pCO2 VBG pH Sodium 165 H* 164 H* Potassium Chloride 127.4 H Carbon Dioxide BUN 113 H Creatinine 3.2 H Glucose 208 H POC Glucose 215 H Lactic Acid Calcium 6.8 L Phosphorus Magnesium AST 55 H Total Creatine Kinase C-Reactive Protein Total Protein 5.2 L D Albumin 2.3 L TSH Free T4 PTH Intact Urine WBC (Auto) Urine Creatinine Salicylates Acetaminophen 11/06/18 11/06/18 11/06/18 07:50 08:50 12:16 WBC RBC Hgb Hct Plt Count Lymph % (Auto) [place] % (Auto) Lymph # Seg Neutrophils % Seg Neuts % (Manual) Lymphocytes % (Manual) Seg Neutrophils # Seg Neutrophils # Man Lymphocytes # (Manual) PT INR POC ABG pCO2 VBG pH Sodium 161 H* Potassium Chloride 126.0 H Carbon Dioxide BUN 111 H Creatinine 3.0 H Glucose 187 H POC Glucose 239 H 198 H Lactic Acid Calcium 7.0 L Phosphorus Magnesium AST Total Creatine Kinase C-Reactive Protein Total Protein Albumin TSH Free T4 PTH Intact Urine WBC (Auto) Urine Creatinine Salicylates Acetaminophen 11/06/18 11/06/18 11/06/18 15:42 17:59 21:21 WBC RBC Hgb Hct Plt Count Lymph % (Auto) [place] % (Auto) Lymph # Seg Neutrophils % Seg Neuts % (Manual) Lymphocytes % (Manual) Seg Neutrophils # Seg Neutrophils # Man Lymphocytes # (Manual) PT INR POC ABG pCO2 VBG pH Sodium 162 H* Potassium Chloride 127.3 H Carbon Dioxide BUN 98 H Creatinine 2.7 H Glucose 195 H POC Glucose 225 H 272 H Lactic Acid Calcium 7.1 L Phosphorus Magnesium AST Total Creatine Kinase C-Reactive Protein Total Protein Albumin TSH Free T4 PTH Intact Urine WBC (Auto) Urine Creatinine Salicylates Acetaminophen 11/06/18 11/06/18 11/07/18 21:24 21:24 02:01 WBC RBC Hgb 11.0 L Hct 33.4 L Plt Count Lymph % (Auto) [place] % (Auto) Lymph # Seg Neutrophils % Seg Neuts % (Manual) Lymphocytes % (Manual) Seg Neutrophils # Seg Neutrophils # Man Lymphocytes # (Manual) PT INR POC ABG pCO2 VBG pH Sodium Potassium Chloride Carbon Dioxide BUN Creatinine Glucose POC Glucose 282 H Lactic Acid Calcium Phosphorus Magnesium AST Total Creatine Kinase 3538 H C-Reactive Protein Total Protein Albumin TSH Free T4 PTH Intact Urine WBC (Auto) Urine Creatinine Salicylates Acetaminophen 11/07/18 11/07/18 11/07/18 04:13 04:13 04:13 WBC RBC Hgb 11.4 L Hct 33.8 L Plt Count 103 L Lymph % (Auto) [place] % (Auto) Lymph # Seg Neutrophils % Seg Neuts % (Manual) 83.0 H Lymphocytes % (Manual) 6.0 L Seg Neutrophils # Seg Neutrophils # Man Lymphocytes # (Manual) 0.6 L PT INR POC ABG pCO2 VBG pH Sodium 161 H* Potassium Chloride 125.8 H Carbon Dioxide BUN 80 H Creatinine 2.4 H Glucose 246 H POC Glucose Lactic Acid Calcium 7.4 L Phosphorus Magnesium 2.50 H AST 106 H Total Creatine Kinase 2918 H C-Reactive Protein Total Protein 5.7 L Albumin 2.0 L TSH Free T4 PTH Intact Urine WBC (Auto) Urine Creatinine Salicylates Acetaminophen 11/07/18 11/07/18 11/07/18 05:17 09:15 13:27 WBC RBC Hgb Hct Plt Count Lymph % (Auto) [place] % (Auto) Lymph # Seg Neutrophils % Seg Neuts % (Manual) Lymphocytes % (Manual) Seg Neutrophils # Seg Neutrophils # Man Lymphocytes # (Manual) PT INR POC ABG pCO2 VBG pH Sodium Potassium Chloride Carbon Dioxide BUN Creatinine Glucose POC Glucose 256 H 287 H 281 H Lactic Acid Calcium Phosphorus Magnesium AST Total Creatine Kinase C-Reactive Protein Total Protein Albumin TSH Free T4 PTH Intact Urine WBC (Auto) Urine Creatinine Salicylates Acetaminophen 11/07/18 11/07/18 11/07/18 15:10 16:38 21:08 WBC RBC Hgb 10.2 L Hct 31.2 L Plt Count Lymph % (Auto) [place] % (Auto) Lymph # Seg Neutrophils % Seg Neuts % (Manual) Lymphocytes % (Manual) Seg Neutrophils # Seg Neutrophils # Man Lymphocytes # (Manual) PT INR POC ABG pCO2 VBG pH Sodium Potassium Chloride Carbon Dioxide BUN Creatinine Glucose POC Glucose 284 H 349 H Lactic Acid Calcium Phosphorus Magnesium AST Total Creatine Kinase C-Reactive Protein Total Protein Albumin TSH Free T4 PTH Intact Urine WBC (Auto) Urine Creatinine Salicylates Acetaminophen 11/07/18 11/08/18 11/08/18 21:41 01:24 04:30 WBC RBC 3.26 L Hgb 10.2 L 10.2 L Hct 30.8 L 29.9 L Plt Count 103 L Lymph % (Auto) 7.7 L [place] % (Auto) 7.5 H Lymph # 0.8 L Seg Neutrophils % 83.6 H Seg Neuts % (Manual) Lymphocytes % (Manual) Seg Neutrophils # 8.6 H Seg Neutrophils # Man Lymphocytes # (Manual) PT INR POC ABG pCO2 VBG pH Sodium Potassium Chloride Carbon Dioxide BUN Creatinine Glucose POC Glucose 363 H Lactic Acid Calcium Phosphorus Magnesium AST Total Creatine Kinase C-Reactive Protein Total Protein Albumin TSH Free T4 PTH Intact Urine WBC (Auto) Urine Creatinine Salicylates Acetaminophen 11/08/18 11/08/18 11/08/18 04:30 04:30 05:34 WBC RBC Hgb Hct Plt Count Lymph % (Auto) [place] % (Auto) Lymph # Seg Neutrophils % Seg Neuts % (Manual) Lymphocytes % (Manual) Seg Neutrophils # Seg Neutrophils # Man Lymphocytes # (Manual) PT INR POC ABG pCO2 VBG pH Sodium 157 H Potassium 3.5 L Chloride 119.8 H Carbon Dioxide BUN 52 H Creatinine 1.9 H Glucose 244 H POC Glucose 250 H Lactic Acid Calcium 7.3 L Phosphorus Magnesium AST 88 H Total Creatine Kinase 1829 H C-Reactive Protein Total Protein 4.4 L D Albumin 2.3 L TSH Free T4 PTH Intact Urine WBC (Auto) Urine Creatinine Salicylates Acetaminophen 11/08/18 09:12 WBC RBC Hgb Hct Plt Count Lymph % (Auto) [place] % (Auto) Lymph # Seg Neutrophils % Seg Neuts % (Manual) Lymphocytes % (Manual) Seg Neutrophils # Seg Neutrophils # Man Lymphocytes # (Manual) PT INR POC ABG pCO2 VBG pH Sodium Potassium Chloride Carbon Dioxide BUN Creatinine Glucose POC Glucose 299 H Lactic Acid Calcium Phosphorus Magnesium AST Total Creatine Kinase C-Reactive Protein Total Protein Albumin TSH Free T4 PTH Intact Urine WBC (Auto) Urine Creatinine Salicylates Acetaminophen
[2018-11-08] MEDS: HEPARIN SUB-Q SCH ×2 (09:55→22:17)
[2018-11-08] MEDS: SODIUM CHLORIDE FLUSH SYRINGE 10 ML IV SCH ×2 (09:55→22:19)
[2018-11-08] MEDS: PREVACID SOLUTAB FEEDTUBE SCH ×2 (09:55→22:15)
[2018-11-08] MEDS: LEVAQUIN 250MG/50ML 250 MG/50 ML BAG IV SCH (09:55)
[2018-11-08] MEDS: FLOMAX PO SCH (09:56)
[2018-11-08] MEDS ORDERED: LANTUS SUB-Q ONE (10:00)
--- NOTE | 2018-11-08 10:17 | Progress Note ---
Assessment and Plan 1. Acute kidney injury: Vasomotor JAVY in the setting of volume depletion and DKA. Renal US was negative for hydro. Continue IV fluids. Renal function is improving. Monitor renal function. Renal prognosis is guarded. Avoid nephrotoxic agents. Meds dosage based on GFR. 2. FEN: Hyperkalemia, improved. Hypernatremia, continue IV D5W and water flushes. Metabolic acidosis, improved. Monitor lytes. 3. DKA: S/p Insulin drip. 4. Sepsis: ?UTI. On Levofloxacin. 5. Metabolic Encephalopathy. D/w daughter and answered all questions. Subjective Date of service: 11/08/18 Principal diagnosis: Ac hypoxemic resp failure; Severe sepsis; DKA; JAVY; Ac encephalopathy; UTI Interval history: Patient was seen and examined at the bedside. Daughter at the bedside. Objective - Vital Signs Vital signs: Vital Signs - 12hr 11/07/18 11/07/18 11/07/18 22:21 22:30 22:32 Temperature Pulse Rate 95 H 93 H 94 H Pulse Rate [ From Monitor] Respiratory 31 H 29 H 30 H Rate Blood Pressure 127/64 127/64 127/64 O2 Sat by Pulse 97 97 96 Oximetry 11/07/18 11/07/18 11/08/18 23:00 23:30 00:00 Temperature 101.7 F H Pulse Rate 88 98 H 97 H Pulse Rate [ 97 H From Monitor] Respiratory 29 H 30 H 33 H Rate Blood Pressure 108/54 108/54 112/57 O2 Sat by Pulse 97 98 98 Oximetry 11/08/18 11/08/18 11/08/18 00:10 00:30 00:33 Temperature Pulse Rate 95 H 95 H 94 H Pulse Rate [ From Monitor] Respiratory 24 31 H Rate Blood Pressure 112/57 112/57 O2 Sat by Pulse 99 97 Oximetry 11/08/18 11/08/18 11/08/18 01:00 01:30 02:00 Temperature Pulse Rate 91 H 89 Pulse Rate [ From Monitor] Respiratory 32 H 23 Rate Blood Pressure 113/57 113/57 107/65 O2 Sat by Pulse 98 99 100 Oximetry 11/08/18 11/08/18 11/08/18 02:30 03:00 03:30 Temperature Pulse Rate 79 81 92 H Pulse Rate [ From Monitor] Respiratory 21 20 20 Rate Blood Pressure 107/65 95/65 95/65 O2 Sat by Pulse 100 100 100 Oximetry 11/08/18 11/08/18 11/08/18 03:41 04:00 04:28 Temperature 97.5 F L Pulse Rate 81 80 Pulse Rate [ 81 From Monitor] Respiratory 18 21 Rate Blood Pressure 131/67 131/67 O2 Sat by Pulse 100 100 Oximetry 11/08/18 11/08/18 11/08/18 04:30 05:00 05:30 Temperature Pulse Rate 86 77 79 Pulse Rate [ From Monitor] Respiratory 20 19 20 Rate Blood Pressure 131/67 130/68 131/67 O2 Sat by Pulse 100 100 100 Oximetry 11/08/18 11/08/18 11/08/18 06:00 06:30 07:00 Temperature Pulse Rate 86 88 87 Pulse Rate [ From Monitor] Respiratory 21 22 26 H Rate Blood Pressure 139/74 139/74 133/69 O2 Sat by Pulse 98 99 100 Oximetry 11/08/18 11/08/18 11/08/18 07:30 08:00 08:19 Temperature 98.7 F Pulse Rate 83 97 H Pulse Rate [ 94 H From Monitor] Respiratory 22 22 Rate Blood Pressure 133/69 131/70 O2 Sat by Pulse 99 100 98 Oximetry 11/08/18 11/08/18 11/08/18 08:30 09:00 09:30 Temperature Pulse Rate 86 87 87 Pulse Rate [ From Monitor] Respiratory 24 21 24 Rate Blood Pressure 131/70 127/65 127/65 O2 Sat by Pulse 98 100 99 Oximetry 11/08/18 10:04 Temperature Pulse Rate Pulse Rate [ From Monitor] Respiratory Rate Blood Pressure O2 Sat by Pulse 99 Oximetry - General Appearance General appearance: well-developed, appears stated age, other (no dsitress, NG tube noted) EENT: ATNC, PERRL Neck: supple Respiratory: Present: Clear to Ascultation Cardiology: regular, S1S2, no murmurs Gastrointestinal: normoactive bowel sounds, no tenderness, no distended Integumentary: no rash, warm and dry Neurologic: other (stuporous) Musculoskeletal: other (no edema) - Lab 11/08/18 14:40 11/08/18 04:30 Most recent lab results Calcium 7.3 mg/dL (8.4-10.2) L 11/08/18 04:30 Phosphorus 2.70 mg/dL (2.5-4.5) D 11/07/18 04:13 Magnesium 2.50 mg/dL (1.7-2.3) H 11/07/18 04:13 58.1 mg/dL (0.1-20.0) H 11/04/18 20:55 34 mmol/L 11/04/18 20:55 Medications & Allergies - Medications Allergies/Adverse Reactions: Allergies No Known Allergies Allergy (Unverified 11/04/18 15:22) Home Medications: Home Medications Medication Instructions Recorded Confirmed Last Taken Type Glimepiride 4 mg PO BID 11/06/18 11/06/18 Unknown History HYDROcodone/ACETAMINOPHEN 5 - 325 mg PO Q4-6H PRN 11/06/18 11/06/18 Unknown History Ibuprofen 800 mg PO Q8HR PRN 11/06/18 11/06/18 Unknown History Lisinopril 2.5 mg PO DAILY 11/06/18 11/06/18 Unknown History Metformin HCl 1,000 mg PO BID 11/06/18 11/06/18 Unknown History NovoLIN N 5 unit SUB-Q BID MDD x 90days 11/06/18 11/06/18 Unknown History Pravastatin Sodium 20 mg PO BID 11/06/18 11/06/18 Unknown History glipiZIDE 10 mg PO BID 11/06/18 11/06/18 Unknown History Active Medications: Generic Name Dose Route Start Last Admin Trade Name Freq PRN Reason Stop Dose Admin Albuterol 2.5 mg 11/04/18 17:42 Proventil IH Q3H PRN Shortness Of Breath Lipase/Protease/Amylase 1 each 11/06/18 15:57 Pancreaze 10,500 Unit FEEDTUBE PRN PRN For Clogged Feeding Tube Dextrose 0 ml 11/04/18 15:40 D50w (25gm) Syringe IV PRN PRN Hypoglycemia Heparin Sodium (Porcine) 5,000 unit 11/04/18 22:00 11/08/18 09:55 Heparin SUB-Q 5,000 unit Q12HR MARIEL Administration Dextrose 1,000 mls @ 150 mls/hr 11/07/18 15:00 11/08/18 04:07 D5w IV 150 mls/hr DIRECT MARIEL Administration Levofloxacin/Dextrose 250 mg in 50 mls @ 50 mls/hr 11/08/18 10:00 11/08/18 09:55 Levaquin 250mg/50ml IV 50 mls/hr Q24HR MARIEL Administration Insulin Glargine 35 units 11/08/18 22:00 Lantus SUB-Q QHS MARIEL Insulin Human Lispro 0 unit 11/05/18 17:00 11/08/18 09:07 Humalog SUB-Q 4 unit Q4H MARIEL Administration Protocol Lansoprazole 30 mg 11/08/18 10:00 11/08/18 09:55 Prevacid Solutab FEEDTUBE 30 mg BID MARIEL Administration Simple Syrup 15 ml 11/06/18 15:57 Simple Syrup FEEDTUBE PRN PRN Hypoglycemia Simple Syrup 30 ml 11/06/18 15:57 Simple Syrup FEEDTUBE PRN PRN Hypoglycemia Sodium Bicarbonate 325 mg 11/06/18 15:57 Sodium Bicarbonate FEEDTUBE PRN PRN For Clogged Feeding Tube Sodium Chloride 10 ml 11/04/18 22:00 11/08/18 09:55 Sodium Chloride Flush Syringe 10 Ml IV 10 ml BID MARIEL Administration Sodium Chloride 10 ml 11/04/18 17:42 Sodium Chloride Flush Syringe 10 Ml IV PRN PRN LINE FLUSH Tamsulosin HCl 0.4 mg 11/07/18 13:00 11/08/18 09:56 Flomax PO 0.4 mg QDAY MARIEL Administration
[2018-11-08] MEDS ORDERED: POTASSIUM CHLORIDE FEEDTUBE ONE (11:00)
[2018-11-08 14:54] LABS: Hematocrit 30.8 % (35.5-45.6); Hemoglobin 10.2 gm/dl (11.8-15.2)
--- NOTE | 2018-11-08 15:58 | Progress Note ---
Assessment and Plan Cultures/ID labs: Urine cultures negative Blood culture NGTD A/P: 53 yo M PMHx diabetes found down in his apartment in DKA with metabolic encephalopathy. Febrile and leukocytosis on admission, initially concerned for UTI. 1) Recurrent fevers - recur overnight but remains afebrile throughout the day. Unclear etiology, normal white count, no new symptoms. Will continue to monitor. 2) JAVY - will continue dose-reduced levofloxacin. Improving. Cockroft-gault GFR: 21 3) DKA 4) Metabolic encephalopathy 5) Rhabdomylosis Recs: Continue levofloxacin 250mg q48h. Assuming white count and fever remain stable, would recommend shorter course, likely 5 days - based on Cockroft-Gault fo 21, could increase dose of levofloxacin, but is borderline. Will consider increase tomorrow. - daily CBC with diff Thank you for the consult, we will continue to follow along. Riana Fuentes MD [facility] ([facility]) C: [phone] O: [phone] F: [phone] Subjective Date of service: 11/08/18 Principal diagnosis: Ac hypoxemic resp failure; Severe sepsis; DKA; JAVY; Ac encephalopathy; UTI Interval history: Pt feeling improved this morning, remains non-verbal but is oriented and responds yes/no appropriately. Recurrent fevers overnight. Objective - Exam Narrative Exam: Constitutional: awake, no distress, following commands Head, Ears, Nose: Normocephalic, atraumatic. External ears, nose normal Eyes: Conjunctivae/corneas clear. No icterus. No ptosis. Neck: Supple, no meningeal signs Oral: poor, moist mucous membranes Cardiovascular: S1, S2 normal. Normal rhythm Respiratory: Good air entry, clear to auscultation bilaterally GI: Soft, non-tender; bowel sounds normal. No peritoneal signs Musculoskeletal: No pedal edema, Skin: No rash or abscess Hem/Lymphatic: No palpable cervical or supraclavicular nodes. No lymphangitis Psych: no agitation Neurological: Moves all extremities, no focal defects - Constitutional Vitals: Vital Signs Temp Pulse Resp BP Pulse Ox 98.8 F 93 H 25 H 112/69 100 11/08/18 12:00 11/08/18 15:00 11/08/18 15:00 11/08/18 15:00 11/08/18 15:00 Temperature -Last 24 Hours Temperature 98.8 F Temperature 98.7 F Temperature 97.5 F Temperature 101.7 F Temperature 101.3 F Temperature 101.3 F Temperature 102.7 F - Labs CBC & Chem 7: 11/08/18 14:40 11/08/18 04:30 Labs: Abnormal lab results 11/07/18 11/07/18 11/07/18 Range/Units 16:38 21:08 21:41 RBC (3.65-5.03) M/mm3 Hgb 10.2 L (11.8-15.2) gm/dl Hct 30.8 L (35.5-45.6) % Plt Count (140-440) K/mm3 Lymph % (Auto) (13.4-35.0) % [place] % (Auto) (0.0-7.3) % Lymph # (1.2-5.4) K/mm3 Seg Neutrophils % (40.0-70.0) % Seg Neutrophils # (1.8-7.7) K/mm3 Sodium (137-145) mmol/L Potassium (3.6-5.0) mmol/L Chloride (98-107) mmol/L BUN (9-20) mg/dL Creatinine (0.8-1.5) mg/dL Glucose (75-100) mg/dL POC Glucose 284 H 349 H (70-105) Calcium (8.4-10.2) mg/dL AST (5-40) units/L Total Creatine Kinase (55-170) units/L Total Protein (6.3-8.2) g/dL Albumin (3.9-5) g/dL 11/08/18 11/08/18 11/08/18 Range/Units 01:24 04:30 04:30 RBC 3.26 L (3.65-5.03) M/mm3 Hgb 10.2 L (11.8-15.2) gm/dl Hct 29.9 L (35.5-45.6) % Plt Count 103 L (140-440) K/mm3 Lymph % (Auto) 7.7 L (13.4-35.0) % [place] % (Auto) 7.5 H (0.0-7.3) % Lymph # 0.8 L (1.2-5.4) K/mm3 Seg Neutrophils % 83.6 H (40.0-70.0) % Seg Neutrophils # 8.6 H (1.8-7.7) K/mm3 Sodium 157 H (137-145) mmol/L Potassium 3.5 L (3.6-5.0) mmol/L Chloride 119.8 H (98-107) mmol/L BUN 52 H (9-20) mg/dL Creatinine 1.9 H (0.8-1.5) mg/dL Glucose 244 H (75-100) mg/dL POC Glucose 363 H (70-105) Calcium 7.3 L (8.4-10.2) mg/dL AST 88 H (5-40) units/L Total Creatine Kinase (55-170) units/L Total Protein 4.4 L D (6.3-8.2) g/dL Albumin 2.3 L (3.9-5) g/dL 11/08/18 11/08/18 11/08/18 Range/Units 04:30 05:34 09:12 RBC (3.65-5.03) M/mm3 Hgb (11.8-15.2) gm/dl Hct (35.5-45.6) % Plt Count (140-440) K/mm3 Lymph % (Auto) (13.4-35.0) % [place] % (Auto) (0.0-7.3) % Lymph # (1.2-5.4) K/mm3 Seg Neutrophils % (40.0-70.0) % Seg Neutrophils # (1.8-7.7) K/mm3 Sodium (137-145) mmol/L Potassium (3.6-5.0) mmol/L Chloride (98-107) mmol/L BUN (9-20) mg/dL Creatinine (0.8-1.5) mg/dL Glucose (75-100) mg/dL POC Glucose 250 H 299 H (70-105) Calcium (8.4-10.2) mg/dL AST (5-40) units/L Total Creatine Kinase 1829 H (55-170) units/L Total Protein (6.3-8.2) g/dL Albumin (3.9-5) g/dL 11/08/18 11/08/18 Range/Units 14:20 14:40 RBC (3.65-5.03) M/mm3 Hgb 10.2 L (11.8-15.2) gm/dl Hct 30.8 L (35.5-45.6) % Plt Count (140-440) K/mm3 Lymph % (Auto) (13.4-35.0) % [place] % (Auto) (0.0-7.3) % Lymph # (1.2-5.4) K/mm3 Seg Neutrophils % (40.0-70.0) % Seg Neutrophils # (1.8-7.7) K/mm3 Sodium (137-145) mmol/L Potassium (3.6-5.0) mmol/L Chloride (98-107) mmol/L BUN (9-20) mg/dL Creatinine (0.8-1.5) mg/dL Glucose (75-100) mg/dL POC Glucose 379 H (70-105) Calcium (8.4-10.2) mg/dL AST (5-40) units/L Total Creatine Kinase (55-170) units/L Total Protein (6.3-8.2) g/dL Albumin (3.9-5) g/dL
[2018-11-08] MEDS: LANTUS SUB-Q SCH (22:17)
[2018-11-09] MEDS: HumaLOG SUB-Q SCH ×6 (01:14→21:31)
[2018-11-09] MEDS: D5W 1,000 ML IV SCH ×3 (01:51→21:16)
[2018-11-09 05:13] LABS: Basophils % (Auto) 0.2 % (0.0-1.8); Eosinophils # (Auto) 0.1 K/mm3 (0.0-0.4); Hematocrit 29.3 % (35.5-45.6); Hemoglobin 9.7 gm/dl (11.8-15.2); Lymphocytes # (Auto) 0.8 K/mm3 (1.2-5.4); Lymphocytes % (Auto) 8.2 % (13.4-35.0); Mean Corpuscular HGB Conc 33 % (32-34); Mean Corpuscular Volume 92 fl (84-94); Monocytes # (Auto) 0.7 K/mm3 (0.0-0.8); Monocytes % (Auto) 7.4 % (0.0-7.3); Platelet Count 117 K/mm3 (140-440)
[2018-11-09 05:21] LABS: Albumin 1.6 g/dL (3.9-5); Calcium 7.8 mg/dL (8.4-10.2)
[2018-11-09] MEDS: PREVACID SOLUTAB FEEDTUBE SCH ×2 (09:17→21:13)
[2018-11-09] MEDS: HEPARIN SUB-Q SCH ×2 (09:18→21:14)
[2018-11-09] MEDS: LEVAQUIN 250MG/50ML 250 MG/50 ML BAG IV SCH (09:19)
[2018-11-09] MEDS: FLOMAX PO SCH (09:19)
[2018-11-09] MEDS: SODIUM CHLORIDE FLUSH SYRINGE 10 ML IV SCH ×2 (09:20→21:45)
--- NOTE | 2018-11-09 09:27 | Progress Note ---
Assessment and Plan 1. Acute kidney injury: Vasomotor JAVY in the setting of volume depletion and DKA. Renal US was negative for hydro. Continue IV fluids. Renal function is improving. Monitor renal function. Renal prognosis is guarded. Avoid nephrotoxic agents. Meds dosage based on GFR. 2. FEN: Hyperkalemia, improved. Hypernatremia, continue IV D5W and water flushes. Metabolic acidosis, improved. Replete Phos. Monitor lytes. 3. DKA: Improved. 4. Hyperglycemia: Decreased D5W. 5. Sepsis: ?UTI. On Levofloxacin. 6. Metabolic Encephalopathy. Subjective Date of service: 11/09/18 Principal diagnosis: Ac hypoxemic resp failure; Severe sepsis; DKA; JAVY; Ac encephalopathy; UTI Interval history: Patient was seen and examined at the bedside. Objective - Vital Signs Vital signs: Vital Signs - 12hr 11/08/18 11/08/18 11/08/18 21:30 22:00 22:30 Temperature Pulse Rate 93 H 92 H 97 H Pulse Rate [ From Monitor] Pulse Rate [ Right Dorsalis Pedis] Respiratory 22 33 H 28 H Rate Blood Pressure 112/64 104/56 104/56 O2 Sat by Pulse 98 97 97 Oximetry 11/08/18 11/08/18 11/08/18 23:00 23:31 23:48 Temperature Pulse Rate 104 H 102 H 95 H Pulse Rate [ From Monitor] Pulse Rate [ Right Dorsalis Pedis] Respiratory 12 16 16 Rate Blood Pressure 113/59 113/59 O2 Sat by Pulse 98 99 99 Oximetry 11/09/18 11/09/18 11/09/18 00:00 00:31 01:00 Temperature 101.1 F H Pulse Rate 100 H 102 H 92 H Pulse Rate [ 101 H From Monitor] Pulse Rate [ 101 H Right Dorsalis Pedis] Respiratory 14 19 37 H Rate Blood Pressure 113/63 113/63 98/58 O2 Sat by Pulse 100 99 99 Oximetry 11/09/18 11/09/18 11/09/18 01:31 02:00 02:31 Temperature Pulse Rate 94 H 92 H 96 H Pulse Rate [ From Monitor] Pulse Rate [ Right Dorsalis Pedis] Respiratory 23 40 H 26 H Rate Blood Pressure 98/58 118/68 118/68 O2 Sat by Pulse 98 99 Oximetry 11/09/18 11/09/18 11/09/18 03:00 03:31 03:32 Temperature Pulse Rate 93 H 95 H 94 H Pulse Rate [ From Monitor] Pulse Rate [ Right Dorsalis Pedis] Respiratory 31 H 29 H 31 H Rate Blood Pressure 112/66 112/66 112/66 O2 Sat by Pulse 99 99 Oximetry 11/09/18 11/09/18 11/09/18 04:00 04:31 05:00 Temperature 99.5 F Pulse Rate 96 H 93 H 96 H Pulse Rate [ 91 H From Monitor] Pulse Rate [ 91 H Right Dorsalis Pedis] Respiratory 30 H 13 24 Rate Blood Pressure 112/66 115/65 112/66 O2 Sat by Pulse 99 97 100 Oximetry 11/09/18 11/09/18 11/09/18 05:15 05:31 06:00 Temperature Pulse Rate 96 H 96 H Pulse Rate [ From Monitor] Pulse Rate [ Right Dorsalis Pedis] Respiratory 22 22 19 Rate Blood Pressure 112/66 114/67 O2 Sat by Pulse 99 99 97 Oximetry 11/09/18 11/09/18 11/09/18 06:31 07:00 07:31 Temperature Pulse Rate 95 H 99 H 96 H Pulse Rate [ From Monitor] Pulse Rate [ Right Dorsalis Pedis] Respiratory 22 14 20 Rate Blood Pressure 114/67 116/66 116/66 O2 Sat by Pulse 98 97 Oximetry 11/09/18 11/09/18 08:22 08:50 Temperature 99.4 F Pulse Rate Pulse Rate [ From Monitor] Pulse Rate [ Right Dorsalis Pedis] Respiratory Rate Blood Pressure O2 Sat by Pulse 98 Oximetry - General Appearance General appearance: well-developed, appears stated age, other (no distress, NG tube noted) EENT: ATNC, PERRL Neck: supple Respiratory: Present: Clear to Ascultation Cardiology: regular, S1S2, no murmurs Gastrointestinal: normoactive bowel sounds, no tenderness, no distended Integumentary: no rash, warm and dry Neurologic: other (alert, able to tell his name, barely able to move his extrremities) Musculoskeletal: other (no edema) - Lab 11/09/18 04:33 11/09/18 04:33 Most recent lab results Calcium 7.8 mg/dL (8.4-10.2) L 11/09/18 04:33 Phosphorus 1.90 mg/dL (2.5-4.5) L 11/09/18 04:33 Magnesium 2.50 mg/dL (1.7-2.3) H 11/07/18 04:13 58.1 mg/dL (0.1-20.0) H 11/04/18 20:55 34 mmol/L 11/04/18 20:55 Medications & Allergies - Medications Allergies/Adverse Reactions: Allergies No Known Allergies Allergy (Unverified 11/04/18 15:22) Home Medications: Home Medications Medication Instructions Recorded Confirmed Last Taken Type Glimepiride 4 mg PO BID 11/06/18 11/06/18 Unknown History HYDROcodone/ACETAMINOPHEN 5 - 325 mg PO Q4-6H PRN 11/06/18 11/06/18 Unknown History Ibuprofen 800 mg PO Q8HR PRN 11/06/18 11/06/18 Unknown History Lisinopril 2.5 mg PO DAILY 11/06/18 11/06/18 Unknown History Metformin HCl 1,000 mg PO BID 11/06/18 11/06/18 Unknown History NovoLIN N 5 unit SUB-Q BID MDD x 90days 11/06/18 11/06/18 Unknown History Pravastatin Sodium 20 mg PO BID 11/06/18 11/06/18 Unknown History glipiZIDE 10 mg PO BID 11/06/18 11/06/18 Unknown History Active Medications: Generic Name Dose Route Start Last Admin Trade Name Freq PRN Reason Stop Dose Admin Acetaminophen 650 mg 11/09/18 04:21 Tylenol FEEDTUBE Q4H PRN Fever >101 Albuterol 2.5 mg 11/04/18 17:42 Proventil IH Q3H PRN Shortness Of Breath Lipase/Protease/Amylase 1 each 11/06/18 15:[address] 10,500 Unit FEEDTUBE PRN PRN For Clogged Feeding Tube Dextrose 0 ml 11/04/18 15:40 D50w (25gm) Syringe IV PRN PRN Hypoglycemia Heparin Sodium (Porcine) 5,000 unit 11/04/18 22:00 11/09/18 09:18 Heparin SUB-Q 5,000 unit Q12HR MARIEL Administration Dextrose 1,000 mls @ 150 mls/hr 11/07/18 15:00 11/09/18 09:20 D5w IV 150 mls/hr DIRECT MARIEL Administration Levofloxacin/Dextrose 250 mg in 50 mls @ 50 mls/hr 11/08/18 10:00 11/09/18 09:19 Levaquin 250mg/50ml IV 50 mls/hr Q24HR MARIEL Administration Insulin Glargine 35 units 11/08/18 22:00 11/08/18 22:17 Lantus SUB-Q 35 units QHS MARIEL Administration Insulin Human Lispro 0 unit 11/05/18 17:00 11/09/18 09:17 Humalog SUB-Q 4 unit Q4H MARIEL Administration Protocol Lansoprazole 30 mg 11/08/18 10:00 11/09/18 09:17 Prevacid Solutab FEEDTUBE 30 mg BID MARIEL Administration Simple Syrup 15 ml 11/06/18 15:57 Simple Syrup FEEDTUBE PRN PRN Hypoglycemia Simple Syrup 30 ml 11/06/18 15:57 Simple Syrup FEEDTUBE PRN PRN Hypoglycemia Sodium Bicarbonate 325 mg 11/06/18 15:57 Sodium Bicarbonate FEEDTUBE PRN PRN For Clogged Feeding Tube Sodium Chloride 10 ml 11/04/18 22:00 11/09/18 09:20 Sodium Chloride Flush Syringe 10 Ml IV 10 ml BID MARIEL Administration Sodium Chloride 10 ml 11/04/18 17:42 Sodium Chloride Flush Syringe 10 Ml IV PRN PRN LINE FLUSH Tamsulosin HCl 0.4 mg 11/07/18 13:00 11/09/18 09:19 Flomax PO 0.4 mg QDAY MARIEL Administration
--- NOTE | 2018-11-09 10:03 | Progress Note ---
Assessment and Plan Acute hypoxemic respiratory failure, on supplemental oxygen. Severe sepsis with shock (unspecified) Diabetic ketoacidosis. Acute kidney injury, likely secondary to rhabdomyolysis. Rhabdomyolysis. Acute encephalopathy, likely toxic metabolic. Hyperkalemia. Possible urinary tract infection. Severe metabolic acidosis. Possible hypothyroidism. Leukocytosis - continue supplemental oxygen as needed to keep O2 sat's > 90% - continue free water - antibiotics per ID - continue long acting insulin therapy with SSI for target BG 140 mg/dL to 180 mg/dl - Azotemia improving; continue gentle hydration - avoid nephrotoxins and renally adjust all medications as needed - wound care per WCT - continue VTE prophylaxis -continue enteral nutrition as tolerated, aspiration precautions -aspiration precautions - prn bronchodilators with pulmonary hygiene per RT - Prevention of delirium, maintenance of sleep-wake cycle - Supportive care- mobility, PT/OT Subjective Date of service: 11/09/18 Principal diagnosis: Ac hypoxemic resp failure; Severe sepsis; DKA; JAVY; Ac e ncephalopathy; UTI Interval history: Patient is seen today for: Acute hypoxemic respiratory failure; Severe sepsis with shock; Diabetic ketoacidosis; Acute kidney injury; Rhabdomyolysis; Acute encephalopathy, likely toxic metabolic; Hyperkalemia; Possible urinary tract infection; Severe metabolic acidosis; Possible hypothyroidism; Leukocytosis Seen and examined at bedside; 24hour events reviewed; nursing and respiratory care staff consulted; no adverse overnight events reported to me; resting peacefully in bed; remains on supplemental oxygen at 2L NC; feeding tube in nares; no fevers, no diarrhea or vomiting. Vitals, labs, medications, chart reviewed. Objective - Exam Narrative Exam: Constitutional: awake, no distress, following commands Head, Ears, Nose: Normocephalic, atraumatic. External ears, nose normal Eyes: Conjunctivae/corneas clear. No icterus. No ptosis. Neck: Supple, no meningeal signs Oral: poor, moist mucous membranes Cardiovascular: S1, S2 normal. Normal rhythm Respiratory: Good air entry, clear to auscultation bilaterally GI: Soft, non-tender; bowel sounds normal. No peritoneal signs Musculoskeletal: No pedal edema, Skin: No rash or abscess Hem/Lymphatic: No palpable cervical or supraclavicular nodes. No lymphangitis Psych: no agitation Neurological: Moves all extremities, no focal defects Vital Signs - 12hr 11/08/18 11/08/18 11/08/18 22:30 23:00 23:31 Temperature Pulse Rate 97 H 104 H 102 H Pulse Rate [ From Monitor] Pulse Rate [ Right Dorsalis Pedis] Respiratory 28 H 12 16 Rate Blood Pressure 104/56 113/59 O2 Sat by Pulse 97 98 99 Oximetry 11/08/18 11/09/18 11/09/18 23:48 00:00 00:31 Temperature 101.1 F H Pulse Rate 95 H 100 H 102 H Pulse Rate [ 101 H From Monitor] Pulse Rate [ 101 H Right Dorsalis Pedis] Respiratory 16 14 19 Rate Blood Pressure 113/59 113/63 113/63 O2 Sat by Pulse 99 100 99 Oximetry 11/09/18 11/09/18 11/09/18 01:00 01:31 02:00 Temperature Pulse Rate 92 H 94 H 92 H Pulse Rate [ From Monitor] Pulse Rate [ Right Dorsalis Pedis] Respiratory 37 H 23 40 H Rate Blood Pressure 98/58 98/58 118/68 O2 Sat by Pulse 99 98 Oximetry 11/09/18 11/09/18 11/09/18 02:31 03:00 03:31 Temperature Pulse Rate 96 H 93 H 95 H Pulse Rate [ From Monitor] Pulse Rate [ Right Dorsalis Pedis] Respiratory 26 H 31 H 29 H Rate Blood Pressure 118/68 112/66 112/66 O2 Sat by Pulse 99 99 Oximetry 11/09/18 11/09/18 11/09/18 03:32 04:00 04:31 Temperature 99.5 F Pulse Rate 94 H 96 H 93 H Pulse Rate [ 91 H From Monitor] Pulse Rate [ 91 H Right Dorsalis Pedis] Respiratory 31 H 30 H 13 Rate Blood Pressure 112/66 112/66 115/65 O2 Sat by Pulse 99 99 97 Oximetry 11/09/18 11/09/18 11/09/18 05:00 05:15 05:31 Temperature Pulse Rate 96 H 96 H Pulse Rate [ From Monitor] Pulse Rate [ Right Dorsalis Pedis] Respiratory 24 22 22 Rate Blood Pressure 112/66 112/66 O2 Sat by Pulse 100 99 99 Oximetry 11/09/18 11/09/18 11/09/18 06:00 06:31 07:00 Temperature Pulse Rate 96 H 95 H 99 H Pulse Rate [ From Monitor] Pulse Rate [ Right Dorsalis Pedis] Respiratory 19 22 14 Rate Blood Pressure 114/67 114/67 116/66 O2 Sat by Pulse 97 98 Oximetry 11/09/18 11/09/18 11/09/18 07:31 08:22 08:50 Temperature 99.4 F Pulse Rate 96 H Pulse Rate [ From Monitor] Pulse Rate [ Right Dorsalis Pedis] Respiratory 20 Rate Blood Pressure 116/66 O2 Sat by Pulse 97 98 Oximetry CBC and BMP: 11/11/18 04:42 11/11/18 04:42 ABG, PT/INR, D-dimer: ABG POC ABG pH 7.432 (7.35-7.45) 11/05/18 17:08 POC ABG pCO2 32.3 (35-45) L 11/05/18 17:08 POC ABG HCO3 21.5 (22-26 mml/L) 11/05/18 17:08 POC ABG Total CO2 23 (23-27mmol/L) 11/05/18 17:08 POC ABG O2 Sat 85 11/05/18 17:08 PT/INR, D-dimer PT 15.6 Sec. (12.2-14.9) H 11/04/18 16:05 INR 1.27 (0.87-1.13) H 11/04/18 16:05 Abnormal lab findings: Abnormal Labs 11/04/18 11/04/18 11/04/18 15:23 15:35 16:05 WBC 12.6 H RBC Hgb Hct Plt Count Lymph % (Auto) [place] % (Auto) Lymph # Seg Neutrophils % Seg Neuts % (Manual) 84.0 H Lymphocytes % (Manual) 1.0 L Seg Neutrophils # Seg Neutrophils # Man 10.6 H Lymphocytes # (Manual) 0.1 L PT INR POC ABG pCO2 VBG pH Sodium Potassium Chloride Carbon Dioxide BUN Creatinine Glucose POC Glucose > 500 H Lactic Acid Calcium Ionized Calcium Phosphorus Magnesium AST Total Creatine Kinase C-Reactive Protein Total Protein Albumin TSH Free T4 PTH Intact Urine WBC (Auto) 12.0 H Urine Creatinine Salicylates Acetaminophen 11/04/18 11/04/18 11/04/18 16:05 16:05 16:05 WBC RBC Hgb Hct Plt Count Lymph % (Auto) [place] % (Auto) Lymph # Seg Neutrophils % Seg Neuts % (Manual) Lymphocytes % (Manual) Seg Neutrophils # Seg Neutrophils # Man Lymphocytes # (Manual) PT 15.6 H INR 1.27 H POC ABG pCO2 VBG pH Sodium 153 H Potassium 6.2 H* Chloride Carbon Dioxide 18 L BUN 200 H Creatinine 6.8 H Glucose 1088 H* POC Glucose Lactic Acid 2.80 H* Calcium 7.2 L Ionized Calcium Phosphorus Magnesium AST Total Creatine Kinase C-Reactive Protein Total Protein Albumin 3.1 L TSH Free T4 PTH Intact Urine WBC (Auto) Urine Creatinine Salicylates Acetaminophen 11/04/18 11/04/18 11/04/18 16:05 16:05 16:05 WBC RBC Hgb Hct Plt Count Lymph % (Auto) [place] % (Auto) Lymph # Seg Neutrophils % Seg Neuts % (Manual) Lymphocytes % (Manual) Seg Neutrophils # Seg Neutrophils # Man Lymphocytes # (Manual) PT INR POC ABG pCO2 VBG pH 7.245 L Sodium Potassium Chloride Carbon Dioxide BUN Creatinine Glucose POC Glucose Lactic Acid Calcium Ionized Calcium Phosphorus 13.80 H Magnesium 3.60 H AST Total Creatine Kinase C-Reactive Protein Total Protein Albumin TSH 0.169 L Free T4 0.68 L PTH Intact Urine WBC (Auto) Urine Creatinine Salicylates Acetaminophen 11/04/18 11/04/18 11/04/18 16:05 16:48 19:40 WBC RBC Hgb Hct Plt Count Lymph % (Auto) [place] % (Auto) Lymph # Seg Neutrophils % Seg Neuts % (Manual) Lymphocytes % (Manual) Seg Neutrophils # Seg Neutrophils # Man Lymphocytes # (Manual) PT INR POC ABG pCO2 VBG pH Sodium Potassium Chloride Carbon Dioxide BUN Creatinine Glucose POC Glucose > 500 H 458 H Lactic Acid Calcium Ionized Calcium Phosphorus Magnesium AST Total Creatine Kinase 1857 H C-Reactive Protein Total Protein Albumin TSH Free T4 PTH Intact Urine WBC (Auto) Urine Creatinine Salicylates Acetaminophen 11/04/18 11/04/18 11/04/18 20:29 20:29 20:29 WBC RBC Hgb Hct Plt Count Lymph % (Auto) [place] % (Auto) Lymph # Seg Neutrophils % Seg Neuts % (Manual) Lymphocytes % (Manual) Seg Neutrophils # Seg Neutrophils # Man Lymphocytes # (Manual) PT INR POC ABG pCO2 VBG pH Sodium 163 H* D Potassium Chloride 121.4 H Carbon Dioxide 21 L BUN 166 H Creatinine 5.6 H Glucose 513 H* POC Glucose Lactic Acid 3.30 H* 3.30 H* Calcium 6.4 L Ionized Calcium Phosphorus Magnesium AST Total Creatine Kinase C-Reactive Protein Total Protein Albumin TSH Free T4 PTH Intact Urine WBC (Auto) Urine Creatinine Salicylates Acetaminophen 11/04/18 11/04/18 11/04/18 20:55 21:03 22:00 WBC RBC Hgb Hct Plt Count Lymph % (Auto) [place] % (Auto) Lymph # Seg Neutrophils % Seg Neuts % (Manual) Lymphocytes % (Manual) Seg Neutrophils # Seg Neutrophils # Man Lymphocytes # (Manual) PT INR POC ABG pCO2 VBG pH Sodium Potassium Chloride Carbon Dioxide BUN Creatinine Glucose POC Glucose 496 H Lactic Acid 3.60 H* Calcium Ionized Calcium Phosphorus Magnesium AST Total Creatine Kinase C-Reactive Protein Total Protein Albumin TSH Free T4 PTH Intact Urine WBC (Auto) Urine Creatinine 58.1 H Salicylates Acetaminophen 11/04/18 11/04/18 11/04/18 22:04 23:07 23:47 WBC RBC Hgb Hct Plt Count Lymph % (Auto) [place] % (Auto) Lymph # Seg Neutrophils % Seg Neuts % (Manual) Lymphocytes % (Manual) Seg Neutrophils # Seg Neutrophils # Man Lymphocytes # (Manual) PT INR POC ABG pCO2 VBG pH Sodium 170 H* Potassium Chloride 127.1 H Carbon Dioxide BUN 164 H Creatinine 5.2 H Glucose 213 H POC Glucose 357 H 306 H Lactic Acid Calcium 6.5 L Ionized Calcium Phosphorus Magnesium AST Total Creatine Kinase C-Reactive Protein Total Protein Albumin TSH Free T4 PTH Intact Urine WBC (Auto) Urine Creatinine Salicylates Acetaminophen 11/04/18 11/05/18 11/05/18 23:47 00:04 00:09 WBC RBC Hgb Hct Plt Count Lymph % (Auto) [place] % (Auto) Lymph # Seg Neutrophils % Seg Neuts % (Manual) Lymphocytes % (Manual) Seg Neutrophils # Seg Neutrophils # Man Lymphocytes # (Manual) PT INR POC ABG pCO2 VBG pH Sodium 163 H* Potassium Chloride 127.5 H Carbon Dioxide BUN 117 H Creatinine 3.3 H Glucose 235 H POC Glucose 219 H Lactic Acid 3.20 H* Calcium 6.8 L Ionized Calcium Phosphorus Magnesium AST Total Creatine Kinase C-Reactive Protein Total Protein Albumin TSH Free T4 PTH Intact Urine WBC (Auto) Urine Creatinine Salicylates Acetaminophen 11/05/18 11/05/18 11/05/18 00:59 03:13 03:52 WBC RBC Hgb Hct Plt Count Lymph % (Auto) [place] % (Auto) Lymph # Seg Neutrophils % Seg Neuts % (Manual) Lymphocytes % (Manual) Seg Neutrophils # Seg Neutrophils # Man Lymphocytes # (Manual) PT INR POC ABG pCO2 VBG pH Sodium Potassium Chloride Carbon Dioxide BUN Creatinine Glucose POC Glucose 204 H 124 H Lactic Acid Calcium Ionized Calcium Phosphorus Magnesium AST Total Creatine Kinase 1680 H C-Reactive Protein Total Protein Albumin TSH Free T4 PTH Intact Urine WBC (Auto) Urine Creatinine Salicylates Acetaminophen 11/05/18 11/05/18 11/05/18 03:52 04:25 05:11 WBC RBC Hgb Hct Plt Count Lymph % (Auto) [place] % (Auto) Lymph # Seg Neutrophils % Seg Neuts % (Manual) Lymphocytes % (Manual) Seg Neutrophils # Seg Neutrophils # Man Lymphocytes # (Manual) PT INR POC ABG pCO2 VBG pH Sodium 169 H* Potassium Chloride 126.2 H Carbon Dioxide BUN 156 H Creatinine 4.7 H Glucose 128 H POC Glucose 150 H 173 H Lactic Acid Calcium 6.3 L Ionized Calcium Phosphorus Magnesium AST Total Creatine Kinase C-Reactive Protein Total Protein Albumin TSH Free T4 PTH Intact Urine WBC (Auto) Urine Creatinine Salicylates Acetaminophen 11/05/18 11/05/18 11/05/18 06:05 06:58 07:48 WBC RBC Hgb Hct Plt Count Lymph % (Auto) [place] % (Auto) Lymph # Seg Neutrophils % Seg Neuts % (Manual) Lymphocytes % (Manual) Seg Neutrophils # Seg Neutrophils # Man Lymphocytes # (Manual) PT INR POC ABG pCO2 VBG pH Sodium Potassium Chloride Carbon Dioxide BUN Creatinine Glucose POC Glucose 136 H 152 H 177 H Lactic Acid Calcium Ionized Calcium Phosphorus Magnesium AST Total Creatine Kinase C-Reactive Protein Total Protein Albumin TSH Free T4 PTH Intact Urine WBC (Auto) Urine Creatinine Salicylates Acetaminophen 11/05/18 11/05/18 11/05/18 08:21 08:21 08:23 WBC RBC Hgb Hct Plt Count Lymph % (Auto) [place] % (Auto) Lymph # Seg Neutrophils % Seg Neuts % (Manual) Lymphocytes % (Manual) Seg Neutrophils # Seg Neutrophils # Man Lymphocytes # (Manual) PT INR POC ABG pCO2 VBG pH Sodium 171 H* Potassium Chloride 128.9 H Carbon Dioxide BUN 149 H Creatinine 4.5 H Glucose 159 H POC Glucose 157 H Lactic Acid Calcium 6.7 L Ionized Calcium Phosphorus Magnesium AST Total Creatine Kinase C-Reactive Protein Total Protein Albumin TSH Free T4 PTH Intact 119.3 H Urine WBC (Auto) Urine Creatinine Salicylates Acetaminophen 11/05/18 11/05/18 11/05/18 10:21 11:12 12:37 WBC RBC Hgb Hct Plt Count Lymph % (Auto) [place] % (Auto) Lymph # Seg Neutrophils % Seg Neuts % (Manual) Lymphocytes % (Manual) Seg Neutrophils # Seg Neutrophils # Man Lymphocytes # (Manual) PT INR POC ABG pCO2 VBG pH Sodium Potassium Chloride Carbon Dioxide BUN Creatinine Glucose POC Glucose 171 H 155 H 145 H Lactic Acid Calcium Ionized Calcium Phosphorus Magnesium AST Total Creatine Kinase C-Reactive Protein Total Protein Albumin TSH Free T4 PTH Intact Urine WBC (Auto) Urine Creatinine Salicylates Acetaminophen 11/05/18 11/05/18 11/05/18 13:24 13:47 14:42 WBC RBC Hgb Hct Plt Count Lymph % (Auto) [place] % (Auto) Lymph # Seg Neutrophils % Seg Neuts % (Manual) Lymphocytes % (Manual) Seg Neutrophils # Seg Neutrophils # Man Lymphocytes # (Manual) PT INR POC ABG pCO2 VBG pH Sodium 167 H* Potassium Chloride 131.6 H Carbon Dioxide BUN 130 H Creatinine 3.8 H Glucose 136 H POC Glucose 137 H 133 H Lactic Acid Calcium 6.4 L Ionized Calcium Phosphorus Magnesium AST Total Creatine Kinase C-Reactive Protein Total Protein Albumin TSH Free T4 PTH Intact Urine WBC (Auto) Urine Creatinine Salicylates Acetaminophen 11/05/18 11/05/18 11/05/18 16:55 17:08 18:14 WBC RBC Hgb Hct Plt Count Lymph % (Auto) [place] % (Auto) Lymph # Seg Neutrophils % Seg Neuts % (Manual) Lymphocytes % (Manual) Seg Neutrophils # Seg Neutrophils # Man Lymphocytes # (Manual) PT INR POC ABG pCO2 32.3 L VBG pH Sodium Potassium Chloride Carbon Dioxide BUN Creatinine Glucose POC Glucose 194 H 195 H Lactic Acid Calcium Ionized Calcium Phosphorus Magnesium AST Total Creatine Kinase C-Reactive Protein Total Protein Albumin TSH Free T4 PTH Intact Urine WBC (Auto) Urine Creatinine Salicylates Acetaminophen 11/05/18 11/05/18 11/05/18 18:35 18:35 18:35 WBC RBC Hgb Hct Plt Count Lymph % (Auto) [place] % (Auto) Lymph # Seg Neutrophils % Seg Neuts % (Manual) Lymphocytes % (Manual) Seg Neutrophils # Seg Neutrophils # Man Lymphocytes # (Manual) PT INR POC ABG pCO2 VBG pH Sodium Potassium Chloride Carbon Dioxide BUN Creatinine Glucose POC Glucose Lactic Acid Calcium Ionized Calcium Phosphorus Magnesium AST Total Creatine Kinase C-Reactive Protein 19.50 H Total Protein Albumin TSH Free T4 PTH Intact Urine WBC (Auto) Urine Creatinine Salicylates < 0.3 L Acetaminophen < 5.0 L 11/05/18 11/06/18 11/06/18 21:09 01:36 04:50 WBC RBC Hgb 11.3 L Hct 32.8 L D Plt Count 110 L Lymph % (Auto) [place] % (Auto) Lymph # Seg Neutrophils % Seg Neuts % (Manual) Lymphocytes % (Manual) Seg Neutrophils # Seg Neutrophils # Man Lymphocytes # (Manual) PT INR POC ABG pCO2 VBG pH Sodium Potassium Chloride Carbon Dioxide BUN Creatinine Glucose POC Glucose 250 H 289 H Lactic Acid Calcium Ionized Calcium Phosphorus Magnesium AST Total Creatine Kinase C-Reactive Protein Total Protein Albumin TSH Free T4 PTH Intact Urine WBC (Auto) Urine Creatinine Salicylates Acetaminophen 11/06/18 11/06/18 11/06/18 04:50 04:50 05:14 WBC RBC Hgb Hct Plt Count Lymph % (Auto) [place] % (Auto) Lymph # Seg Neutrophils % Seg Neuts % (Manual) Lymphocytes % (Manual) Seg Neutrophils # Seg Neutrophils # Man Lymphocytes # (Manual) PT INR POC ABG pCO2 VBG pH Sodium 165 H* 164 H* Potassium Chloride 127.4 H Carbon Dioxide BUN 113 H Creatinine 3.2 H Glucose 208 H POC Glucose 215 H Lactic Acid Calcium 6.8 L Ionized Calcium Phosphorus Magnesium AST 55 H Total Creatine Kinase C-Reactive Protein Total Protein 5.2 L D Albumin 2.3 L TSH Free T4 PTH Intact Urine WBC (Auto) Urine Creatinine Salicylates Acetaminophen 11/06/18 11/06/18 11/06/18 07:50 08:50 12:16 WBC RBC Hgb Hct Plt Count Lymph % (Auto) [place] % (Auto) Lymph # Seg Neutrophils % Seg Neuts % (Manual) Lymphocytes % (Manual) Seg Neutrophils # Seg Neutrophils # Man Lymphocytes # (Manual) PT INR POC ABG pCO2 VBG pH Sodium 161 H* Potassium Chloride 126.0 H Carbon Dioxide BUN 111 H Creatinine 3.0 H Glucose 187 H POC Glucose 239 H 198 H Lactic Acid Calcium 7.0 L Ionized Calcium Phosphorus Magnesium AST Total Creatine Kinase C-Reactive Protein Total Protein Albumin TSH Free T4 PTH Intact Urine WBC (Auto) Urine Creatinine Salicylates Acetaminophen 11/06/18 11/06/18 11/06/18 15:42 15:42 17:59 WBC RBC Hgb Hct Plt Count Lymph % (Auto) [place] % (Auto) Lymph # Seg Neutrophils % Seg Neuts % (Manual) Lymphocytes % (Manual) Seg Neutrophils # Seg Neutrophils # Man Lymphocytes # (Manual) PT INR POC ABG pCO2 VBG pH Sodium 162 H* Potassium Chloride 127.3 H Carbon Dioxide BUN 98 H Creatinine 2.7 H Glucose 195 H POC Glucose 225 H Lactic Acid Calcium 7.1 L Ionized Calcium 4.4 L Phosphorus Magnesium AST Total Creatine Kinase C-Reactive Protein Total Protein Albumin TSH Free T4 PTH Intact Urine WBC (Auto) Urine Creatinine Salicylates Acetaminophen 11/06/18 11/06/18 11/06/18 21:21 21:24 21:24 WBC RBC Hgb 11.0 L Hct 33.4 L Plt Count Lymph % (Auto) [place] % (Auto) Lymph # Seg Neutrophils % Seg Neuts % (Manual) Lymphocytes % (Manual) Seg Neutrophils # Seg Neutrophils # Man Lymphocytes # (Manual) PT INR POC ABG pCO2 VBG pH Sodium Potassium Chloride Carbon Dioxide BUN Creatinine Glucose POC Glucose 272 H Lactic Acid Calcium Ionized Calcium Phosphorus Magnesium AST Total Creatine Kinase 3538 H C-Reactive Protein Total Protein Albumin TSH Free T4 PTH Intact Urine WBC (Auto) Urine Creatinine Salicylates Acetaminophen 11/07/18 11/07/18 11/07/18 02:01 04:13 04:13 WBC RBC Hgb 11.4 L Hct 33.8 L Plt Count 103 L Lymph % (Auto) [place] % (Auto) Lymph # Seg Neutrophils % Seg Neuts % (Manual) 83.0 H Lymphocytes % (Manual) 6.0 L Seg Neutrophils # Seg Neutrophils # Man Lymphocytes # (Manual) 0.6 L PT INR POC ABG pCO2 VBG pH Sodium 161 H* Potassium Chloride 125.8 H Carbon Dioxide BUN 80 H Creatinine 2.4 H Glucose 246 H POC Glucose 282 H Lactic Acid Calcium 7.4 L Ionized Calcium Phosphorus Magnesium 2.50 H AST 106 H Total Creatine Kinase C-Reactive Protein Total Protein 5.7 L Albumin 2.0 L TSH Free T4 PTH Intact Urine WBC (Auto) Urine Creatinine Salicylates Acetaminophen 11/07/18 11/07/18 11/07/18 04:13 05:17 09:15 WBC RBC Hgb Hct Plt Count Lymph % (Auto) [place] % (Auto) Lymph # Seg Neutrophils % Seg Neuts % (Manual) Lymphocytes % (Manual) Seg Neutrophils # Seg Neutrophils # Man Lymphocytes # (Manual) PT INR POC ABG pCO2 VBG pH Sodium Potassium Chloride Carbon Dioxide BUN Creatinine Glucose POC Glucose 256 H 287 H Lactic Acid Calcium Ionized Calcium Phosphorus Magnesium AST Total Creatine Kinase 2918 H C-Reactive Protein Total Protein Albumin TSH Free T4 PTH Intact Urine WBC (Auto) Urine Creatinine Salicylates Acetaminophen 11/07/18 11/07/18 11/07/18 13:27 15:10 16:38 WBC RBC Hgb 10.2 L Hct 31.2 L Plt Count Lymph % (Auto) [place] % (Auto) Lymph # Seg Neutrophils % Seg Neuts % (Manual) Lymphocytes % (Manual) Seg Neutrophils # Seg Neutrophils # Man Lymphocytes # (Manual) PT INR POC ABG pCO2 VBG pH Sodium Potassium Chloride Carbon Dioxide BUN Creatinine Glucose POC Glucose 281 H 284 H Lactic Acid Calcium Ionized Calcium Phosphorus Magnesium AST Total Creatine Kinase C-Reactive Protein Total Protein Albumin TSH Free T4 PTH Intact Urine WBC (Auto) Urine Creatinine Salicylates Acetaminophen 11/07/18 11/07/18 11/08/18 21:08 21:41 01:24 WBC RBC Hgb 10.2 L Hct 30.8 L Plt Count Lymph % (Auto) [place] % (Auto) Lymph # Seg Neutrophils % Seg Neuts % (Manual) Lymphocytes % (Manual) Seg Neutrophils # Seg Neutrophils # Man Lymphocytes # (Manual) PT INR POC ABG pCO2 VBG pH Sodium Potassium Chloride Carbon Dioxide BUN Creatinine Glucose POC Glucose 349 H 363 H Lactic Acid Calcium Ionized Calcium Phosphorus Magnesium AST Total Creatine Kinase C-Reactive Protein Total Protein Albumin TSH Free T4 PTH Intact Urine WBC (Auto) Urine Creatinine Salicylates Acetaminophen 11/08/18 11/08/18 11/08/18 04:30 04:30 04:30 WBC RBC 3.26 L Hgb 10.2 L Hct 29.9 L Plt Count 103 L Lymph % (Auto) 7.7 L [place] % (Auto) 7.5 H Lymph # 0.8 L Seg Neutrophils % 83.6 H Seg Neuts % (Manual) Lymphocytes % (Manual) Seg Neutrophils # 8.6 H Seg Neutrophils # Man Lymphocytes # (Manual) PT INR POC ABG pCO2 VBG pH Sodium 157 H Potassium 3.5 L Chloride 119.8 H Carbon Dioxide BUN 52 H Creatinine 1.9 H Glucose 244 H POC Glucose Lactic Acid Calcium 7.3 L Ionized Calcium Phosphorus Magnesium AST 88 H Total Creatine Kinase 1829 H C-Reactive Protein Total Protein 4.4 L D Albumin 2.3 L TSH Free T4 PTH Intact Urine WBC (Auto) Urine Creatinine Salicylates Acetaminophen 11/08/18 11/08/18 11/08/18 05:34 09:12 14:20 WBC RBC Hgb Hct Plt Count Lymph % (Auto) [place] % (Auto) Lymph # Seg Neutrophils % Seg Neuts % (Manual) Lymphocytes % (Manual) Seg Neutrophils # Seg Neutrophils # Man Lymphocytes # (Manual) PT INR POC ABG pCO2 VBG pH Sodium Potassium Chloride Carbon Dioxide BUN Creatinine Glucose POC Glucose 250 H 299 H 379 H Lactic Acid Calcium Ionized Calcium Phosphorus Magnesium AST Total Creatine Kinase C-Reactive Protein Total Protein Albumin TSH Free T4 PTH Intact Urine WBC (Auto) Urine Creatinine Salicylates Acetaminophen 11/08/18 11/08/18 11/08/18 14:40 17:14 21:59 WBC RBC Hgb 10.2 L Hct 30.8 L Plt Count Lymph % (Auto) [place] % (Auto) Lymph # Seg Neutrophils % Seg Neuts % (Manual) Lymphocytes % (Manual) Seg Neutrophils # Seg Neutrophils # Man Lymphocytes # (Manual) PT INR POC ABG pCO2 VBG pH Sodium Potassium Chloride Carbon Dioxide BUN Creatinine Glucose POC Glucose 356 H 385 H Lactic Acid Calcium Ionized Calcium Phosphorus Magnesium AST Total Creatine Kinase C-Reactive Protein Total Protein Albumin TSH Free T4 PTH Intact Urine WBC (Auto) Urine Creatinine Salicylates Acetaminophen 11/09/18 11/09/18 11/09/18 00:57 04:33 04:33 WBC RBC 3.20 L Hgb 9.7 L Hct 29.3 L Plt Count 117 L Lymph % (Auto) 8.2 L [place] % (Auto) 7.4 H Lymph # 0.8 L Seg Neutrophils % 83.2 H Seg Neuts % (Manual) Lymphocytes % (Manual) Seg Neutrophils # Seg Neutrophils # Man Lymphocytes # (Manual) PT INR POC ABG pCO2 VBG pH Sodium 148 H D Potassium Chloride 113.2 H Carbon Dioxide BUN 37 H Creatinine Glucose 252 H POC Glucose 362 H Lactic Acid Calcium 7.8 L Ionized Calcium Phosphorus 1.90 L Magnesium AST 52 H Total Creatine Kinase C-Reactive Protein Total Protein 5.3 L D Albumin 1.6 L TSH Free T4 PTH Intact Urine WBC (Auto) Urine Creatinine Salicylates Acetaminophen 11/09/18 11/09/18 05:24 09:15 WBC RBC Hgb Hct Plt Count Lymph % (Auto) [place] % (Auto) Lymph # Seg Neutrophils % Seg Neuts % (Manual) Lymphocytes % (Manual) Seg Neutrophils # Seg Neutrophils # Man Lymphocytes # (Manual) PT INR POC ABG pCO2 VBG pH Sodium Potassium Chloride Carbon Dioxide BUN Creatinine Glucose POC Glucose 304 H 297 H Lactic Acid Calcium Ionized Calcium Phosphorus Magnesium AST Total Creatine Kinase C-Reactive Protein Total Protein Albumin TSH Free T4 PTH Intact Urine WBC (Auto) Urine Creatinine Salicylates Acetaminophen
[2018-11-09] MEDS ORDERED: PHOS-NAK FEEDTUBE ONE (11:00)
--- NOTE | 2018-11-09 12:30 | Progress Note ---
Assessment and Plan Cultures/ID labs: Urine cultures negative Blood culture NGTD A/P: 53 yo M PMHx diabetes found down in his apartment in DKA with metabolic encephalopathy. Febrile and leukocytosis on admission, initially concerned for UTI. 1) Recurrent fevers - recur overnight but remains afebrile throughout the day. Unclear etiology, normal white count, no new symptoms. Will continue to monitor. 2) JAVY - will continue dose-reduced levofloxacin. Improving. Cockroft-gault GFR: 61 3) DKA 4) Metabolic encephalopathy 5) Rhabdomylosis Recs: Increase levofloxacin to 750mg daily PO, to complete 8 days based on recurrent fevers. - based on Cockroft-Gault of 61 - daily CBC with diff Thank you for the consult, we will continue to follow along. Riana Fuentes MD [facility] C: [phone] O: [phone] F: [phone] Subjective Date of service: 11/09/18 Principal diagnosis: Ac hypoxemic resp failure; Severe sepsis; DKA; JAVY; Ac encephalopathy; UTI Interval history: Pt feeling improved this morning, remains non-verbal but is oriented and responds yes/no appropriately. Recurrent fevers overnight. Objective - Exam Narrative Exam: Constitutional: awake, no distress, following commands Head, Ears, Nose: Normocephalic, atraumatic. External ears, nose normal Eyes: Conjunctivae/corneas clear. No icterus. No ptosis. Neck: Supple, no meningeal signs Oral: poor, moist mucous membranes Cardiovascular: S1, S2 normal. Normal rhythm Respiratory: Good air entry, clear to auscultation bilaterally GI: Soft, non-tender; bowel sounds normal. No peritoneal signs Musculoskeletal: No pedal edema, Skin: No rash or abscess Hem/Lymphatic: No palpable cervical or supraclavicular nodes. No lymphangitis Psych: no agitation Neurological: Moves all extremities, no focal defects - Constitutional Vitals: Vital Signs Temp Pulse Resp BP Pulse Ox 97.8 F 95 H 20 101/61 96 11/09/18 12:00 11/09/18 11:00 11/09/18 11:00 11/09/18 11:00 11/09/18 11:00 Temperature -Last 24 Hours Temperature 97.8 F Temperature 99.4 F Temperature 99.4 F Temperature 97.5 F Temperature 99.5 F Temperature 99.5 F Temperature 99.5 F Temperature 101.1 F Temperature 98.7 F Temperature 98.1 F Temperature 98.1 F - Labs CBC & Chem 7: 11/09/18 04:33 11/09/18 04:33 Labs: Abnormal lab results 11/06/18 11/08/18 11/08/18 Range/Units 15:42 14:20 14:40 RBC (3.65-5.03) M/mm3 Hgb 10.2 L (11.8-15.2) gm/dl Hct 30.8 L (35.5-45.6) % Plt Count (140-440) K/mm3 Lymph % (Auto) (13.4-35.0) % [place] % (Auto) (0.0-7.3) % Lymph # (1.2-5.4) K/mm3 Seg Neutrophils % (40.0-70.0) % Sodium (137-145) mmol/L Chloride (98-107) mmol/L BUN (9-20) mg/dL Glucose (75-100) mg/dL POC Glucose 379 H (70-105) Calcium (8.4-10.2) mg/dL Ionized Calcium 4.4 L (4.8-5.6) mg/dL Phosphorus (2.5-4.5) mg/dL AST (5-40) units/L Total Protein (6.3-8.2) g/dL Albumin (3.9-5) g/dL 11/08/18 11/08/18 11/09/18 Range/Units 17:14 21:59 00:57 RBC (3.65-5.03) M/mm3 Hgb (11.8-15.2) gm/dl Hct (35.5-45.6) % Plt Count (140-440) K/mm3 Lymph % (Auto) (13.4-35.0) % [place] % (Auto) (0.0-7.3) % Lymph # (1.2-5.4) K/mm3 Seg Neutrophils % (40.0-70.0) % Sodium (137-145) mmol/L Chloride (98-107) mmol/L BUN (9-20) mg/dL Glucose (75-100) mg/dL POC Glucose 356 H 385 H 362 H (70-105) Calcium (8.4-10.2) mg/dL Ionized Calcium (4.8-5.6) mg/dL Phosphorus (2.5-4.5) mg/dL AST (5-40) units/L Total Protein (6.3-8.2) g/dL Albumin (3.9-5) g/dL 11/09/18 11/09/18 11/09/18 Range/Units 04:33 04:33 05:24 RBC 3.20 L (3.65-5.03) M/mm3 Hgb 9.7 L (11.8-15.2) gm/dl Hct 29.3 L (35.5-45.6) % Plt Count 117 L (140-440) K/mm3 Lymph % (Auto) 8.2 L (13.4-35.0) % [place] % (Auto) 7.4 H (0.0-7.3) % Lymph # 0.8 L (1.2-5.4) K/mm3 Seg Neutrophils % 83.2 H (40.0-70.0) % Sodium 148 H D (137-145) mmol/L Chloride 113.2 H (98-107) mmol/L BUN 37 H (9-20) mg/dL Glucose 252 H (75-100) mg/dL POC Glucose 304 H (70-105) Calcium 7.8 L (8.4-10.2) mg/dL Ionized Calcium (4.8-5.6) mg/dL Phosphorus 1.90 L (2.5-4.5) mg/dL AST 52 H (5-40) units/L Total Protein 5.3 L D (6.3-8.2) g/dL Albumin 1.6 L (3.9-5) g/dL 11/09/18 Range/Units 09:15 RBC (3.65-5.03) M/mm3 Hgb (11.8-15.2) gm/dl Hct (35.5-45.6) % Plt Count (140-440) K/mm3 Lymph % (Auto) (13.4-35.0) % [place] % (Auto) (0.0-7.3) % Lymph # (1.2-5.4) K/mm3 Seg Neutrophils % (40.0-70.0) % Sodium (137-145) mmol/L Chloride (98-107) mmol/L BUN (9-20) mg/dL Glucose (75-100) mg/dL POC Glucose 297 H (70-105) Calcium (8.4-10.2) mg/dL Ionized Calcium (4.8-5.6) mg/dL Phosphorus (2.5-4.5) mg/dL AST (5-40) units/L Total Protein (6.3-8.2) g/dL Albumin (3.9-5) g/dL
--- NOTE | 2018-11-09 17:52 | XRay Report ---
ABDOMEN 1 VIEW INDICATION / CLINICAL INFORMATION: Check tube placement. COMPARISON: KUB from 11/07/2018. FINDINGS: TUBES / LINES: The previously seen feeding tube has retracted into the stomach with the tip now proje cting over the gastric fundus and directed toward the GE junction. BOWEL GAS PATTERN: No significant abnormality. FREE AIR / EXTRALUMINAL GAS: None seen. ADDITIONAL FINDINGS: No significant additional findings. IMPRESSION: Interval retraction of the feeding tube as above. Signer Name: Andrae Woodard MD Signed: 11/09/2018 5:48 PM Workstation Name: [email or web address]
--- NOTE | 2018-11-09 20:21 | XRay Report ---
ABDOMEN 1 VIEW INDICATION / CLINICAL INFORMATION: Check tube placement. COMPARISON: KUB from earlier today. FINDINGS: TUBES / LINES: The feeding tube has been advanced with the tip now projecting over the distal stomach . BOWEL GAS PATTERN: No significant abnormality. FREE AIR / EXTRALUMINAL GAS: None seen. ADDITIONAL FINDINGS: No significant additional findings. IMPRESSION: Interval advancement of the feeding tube as above. No acute abnormalities. Signer Name: Andrae Woodard MD Signed: 11/09/2018 8:17 PM Workstation Name: [email or web address]
[2018-11-09] MEDS: LANTUS SUB-Q SCH (21:13)
--- NOTE | 2018-11-09 23:42 | Progress Note ---
Assessment and Plan 53 YO Male with DM presents to ED for evaluation. Pt is stuporous st time of my exam and unable to provide history. Pt history taken from EMS as well as ED staff. As per staff, the patient found down and unresponsive in his home. Pt last contact with family was 5 days ago. At that time the patient was in his usual state of health. A well check was conducted, and the patient was unable to answer the door. Law Enforcement was contacted, and gained entry into the home. The patient was subsequently found down, and unresponsive and lying on the kitchen floor covered in fecal matter. EMS notified, and upon arrival the patient was found to have a serum glucose above 500, and in distress. Pt transported to [facility]. Pt seen and evaluated in ED and found to have DKA, Metabolic Encephalopathy, Sepsis suspected secondary to UTI, Rhabdomyolysis, Acidosis, and Acute Kidney Injury. Pt admitted to ICU and initiated on Sepsis protocol, as well as DKA protocol. Nephrology consulted in ED. Pulmonary team consulted in ED. No further history obtainable. No prior admission for review. No medication listed at time of admission for reconciliation. Patient was then admitted and commenced on DKA protocol. Glucose 1088 on admit, now 195. BUN 200 on admit, now 98. Found to be hypernatremic with improved glycemic control. Low T4 and elevarted TSH levels - Sepsis - Fever and white count since resolved. Unclear etiology of sepsis as all cultures are negative. Would continue to levofloxacin for now while blood cultures continue to incub ate. Possible UTI, UA with pyuria but otherwise not significant. UCx negative. - DKA resolved. Continue with insulin therapy Accu-Check NG tube feeding Pull NGT today but reinserted - JAVY due to vasomotor nephropathy - improving IV hydration Nephrology consulted and following - Hypernatremia- resolving continue free water via NG tube - Hypothyroidism Supplement thyroid - UTI will continue dose-reduced levofloxacin. Urine Cx no growth so far - Metabolic encephalopathy - improving. Able to open eyes to voice command and answers questions appropriately. Continue with treatment of underlying conditions that include, sepsis, DKA and electrolyte imbalance - Rhabdomylosis - improving Cautious IV hydration Serial CK levels - Dark stool - none today stool Hemocult iv pentaprazole GI consult input appreciated - DVT and GI prophylaxis with Lovenox and omeprazole - CODE STATUS: Patient is full code - Critical care time: >30 minutes Subjective Date of service: 11/09/18 Principal diagnosis: Ac hypoxemic resp failure; Severe sepsis; DKA; JAVY; Ac encephalopathy; UTI Interval history: Patient seen and examined. opens eyes to voice command. Had fever last night. Pulled out his NGT today per his nurse. Objective - Exam Narrative Exam: Constitutional: Opens eyes to voice command. Still Very Ill-looking Head: Normocephalic atraumatic Eyes: Pupils are equal round and reactive to light Nose: No enlarged turbinates, no septal deviation. Mouth: Moist mucous membranes. ON NGT feeding Neck: Supple no thyromegaly. No bruit. No JVD Heart: Regular rate and rhythm, S1-S2 normal. No rubs murmurs or gallop Lungs: Clear to auscultation bilaterally. no rales or rhonchi Abdomen: Soft, nontender. Bowel sound are present. Extremities: No edema, no cyanosis, no clubbing. skin ulcers Neuro: Open eyes on voice command. Answers short question appropriately. Able to wiggle his toes and finger on command Skin: Skin ulcer in the lower extrmities Musculoskeletal system: No joint pain or swelling Hematological: No petechia or subcutanous hemorrhages. Immunological: No multiple septic spots on the skin Lymphatic: No generalized lymphadenopathy Psychiatry: Still lethergic - Constitutional Vitals: Vital Signs - 12hr 11/09/18 11/09/18 11/09/18 12:00 12:31 13:00 Temperature 97.8 F Pulse Rate 99 H 101 H 106 H Pulse Rate [ 91 H From Monitor] Pulse Rate [ 91 H Right Dorsalis Pedis] Respiratory 12 16 30 H Rate Blood Pressure 108/61 108/61 113/61 O2 Sat by Pulse 97 96 94 Oximetry 11/09/18 11/09/18 11/09/18 13:30 14:00 14:31 Temperature Pulse Rate 100 H 101 H 99 H Pulse Rate [ From Monitor] Pulse Rate [ Right Dorsalis Pedis] Respiratory 36 H 15 26 H Rate Blood Pressure 113/61 107/59 107/59 O2 Sat by Pulse 96 95 97 Oximetry 11/09/18 11/09/18 11/09/18 15:00 15:31 16:00 Temperature 99.4 F Pulse Rate 99 H 103 H Pulse Rate [ 91 H From Monitor] Pulse Rate [ 98 H Right Dorsalis Pedis] Respiratory 22 27 H 22 Rate Blood Pressure 105/62 105/62 110/64 O2 Sat by Pulse 94 94 95 Oximetry 11/09/18 11/09/18 11/09/18 16:31 17:01 17:31 Temperature Pulse Rate 92 H 96 H 92 H Pulse Rate [ From Monitor] Pulse Rate [ Right Dorsalis Pedis] Respiratory 22 15 Rate Blood Pressure 110/64 109/61 109/61 O2 Sat by Pulse 95 95 95 Oximetry 11/09/18 11/09/18 11/09/18 18:01 18:31 19:01 Temperature Pulse Rate 90 88 86 Pulse Rate [ From Monitor] Pulse Rate [ Right Dorsalis Pedis] Respiratory 25 H 20 22 Rate Blood Pressure 109/61 109/61 O2 Sat by Pulse 94 95 96 Oximetry 11/09/18 11/09/18 11/09/18 19:31 19:37 19:46 Temperature 99.5 F Pulse Rate 91 H Pulse Rate [ From Monitor] Pulse Rate [ Right Dorsalis Pedis] Respiratory 11 L Rate Blood Pressure 109/61 O2 Sat by Pulse 97 98 Oximetry 11/09/18 11/09/18 11/09/18 20:00 20:01 20:31 Temperature 97.0 F L Pulse Rate 92 H 90 94 H Pulse Rate [ 92 H From Monitor] Pulse Rate [ 98 H Right Dorsalis Pedis] Respiratory 16 14 16 Rate Blood Pressure 109/61 109/61 O2 Sat by Pulse 99 98 97 Oximetry 11/09/18 11/09/18 11/09/18 20:47 21:01 21:31 Temperature 101.0 F H Pulse Rate 93 H 98 H Pulse Rate [ From Monitor] Pulse Rate [ Right Dorsalis Pedis] Respiratory 25 H 24 Rate Blood Pressure 109/61 109/61 O2 Sat by Pulse 96 91 Oximetry 11/09/18 11/09/18 11/09/18 22:01 22:31 22:46 Temperature 97.1 F L Pulse Rate 92 H 92 H Pulse Rate [ From Monitor] Pulse Rate [ Right Dorsalis Pedis] Respiratory 25 H 29 H Rate Blood Pressure 109/61 109/61 O2 Sat by Pulse 91 95 Oximetry - Labs CBC & Chem 7: 11/09/18 04:33 11/09/18 04:33 Labs: Abnormal lab results 11/06/18 11/09/18 11/09/18 Range/Units 15:42 00:57 04:33 RBC 3.20 L (3.65-5.03) M/mm3 Hgb 9.7 L (11.8-15.2) gm/dl Hct 29.3 L (35.5-45.6) % Plt Count 117 L (140-440) K/mm3 Lymph % (Auto) 8.2 L (13.4-35.0) % [place] % (Auto) 7.4 H (0.0-7.3) % Lymph # 0.8 L (1.2-5.4) K/mm3 Seg Neutrophils % 83.2 H (40.0-70.0) % Sodium (137-145) mmol/L Chloride (98-107) mmol/L BUN (9-20) mg/dL Glucose (75-100) mg/dL POC Glucose 362 H (70-105) Calcium (8.4-10.2) mg/dL Ionized Calcium 4.4 L (4.8-5.6) mg/dL Phosphorus (2.5-4.5) mg/dL AST (5-40) units/L Total Protein (6.3-8.2) g/dL Albumin (3.9-5) g/dL 11/09/18 11/09/18 11/09/18 Range/Units 04:33 05:24 09:15 RBC (3.65-5.03) M/mm3 Hgb (11.8-15.2) gm/dl Hct (35.5-45.6) % Plt Count (140-440) K/mm3 Lymph % (Auto) (13.4-35.0) % [place] % (Auto) (0.0-7.3) % Lymph # (1.2-5.4) K/mm3 Seg Neutrophils % (40.0-70.0) % Sodium 148 H D (137-145) mmol/L Chloride 113.2 H (98-107) mmol/L BUN 37 H (9-20) mg/dL Glucose 252 H (75-100) mg/dL POC Glucose 304 H 297 H (70-105) Calcium 7.8 L (8.4-10.2) mg/dL Ionized Calcium (4.8-5.6) mg/dL Phosphorus 1.90 L (2.5-4.5) mg/dL AST 52 H (5-40) units/L Total Protein 5.3 L D (6.3-8.2) g/dL Albumin 1.6 L (3.9-5) g/dL 11/09/18 11/09/18 11/09/18 Range/Units 13:12 17:35 21:09 RBC (3.65-5.03) M/mm3 Hgb (11.8-15.2) gm/dl Hct (35.5-45.6) % Plt Count (140-440) K/mm3 Lymph % (Auto) (13.4-35.0) % [place] % (Auto) (0.0-7.3) % Lymph # (1.2-5.4) K/mm3 Seg Neutrophils % (40.0-70.0) % Sodium (137-145) mmol/L Chloride (98-107) mmol/L BUN (9-20) mg/dL Glucose (75-100) mg/dL POC Glucose 300 H 262 H 213 H (70-105) Calcium (8.4-10.2) mg/dL Ionized Calcium (4.8-5.6) mg/dL Phosphorus (2.5-4.5) mg/dL AST (5-40) units/L Total Protein (6.3-8.2) g/dL Albumin (3.9-5) g/dL
[2018-11-10] MEDS: HumaLOG SUB-Q SCH ×6 (01:02→22:31)
[2018-11-10 05:32] LABS: Basophils % (Auto) 0.2 % (0.0-1.8); Eosinophils # (Auto) 0.1 K/mm3 (0.0-0.4); Eosinophils % (Auto) 0.9 % (0.0-4.3); Hematocrit 28.7 % (35.5-45.6); Hemoglobin 9.6 gm/dl (11.8-15.2); Lymphocytes # (Auto) 0.8 K/mm3 (1.2-5.4); Lymphocytes % (Auto) 10.3 % (13.4-35.0); Mean Corpuscular HGB Conc 34 % (32-34); Mean Corpuscular Volume 91 fl (84-94); Monocytes # (Auto) 0.8 K/mm3 (0.0-0.8); Platelet Count 155 K/mm3 (140-440); Red Blood Count 3.17 M/mm3 (3.65-5.03); Red Cell Distribution Width 13.9 % (13.2-15.2)
[2018-11-10 05:57] LABS: Alanine Aminotransferase 33 units/L (7-56); Albumin 1.8 g/dL (3.9-5); BUN/Creatinine Ratio 25; Blood Urea Nitrogen 30 mg/dL (9-20); Calcium 7.8 mg/dL (8.4-10.2); Hemolysis Index 2
--- NOTE | 2018-11-10 06:24 | Progress Note ---
Assessment and Plan 53 YO Male with DM presents to ED for evaluation. Pt is stuporous st time of my exam and unable to provide history. Pt history taken from EMS as well as ED staff. As per staff, the patient found down and unresponsive in his home. Pt last contact with family was 5 days ago. At that time the patient was in his usual state of health. A well check was conducted, and the patient was unable to answer the door. Law Enforcement was contacted, and gained entry into the home. The patient was subsequently found down, and unresponsive and lying on the kitchen floor covered in fecal matter. EMS notified, and upon arrival the patient was found to have a serum glucose above 500, and in distress. Pt transported to [facility]. Pt seen and evaluated in ED and found to have DKA, Metabolic Encephalopathy, Sepsis suspected secondary to UTI, Rhabdomyolysis, Acidosis, and Acute Kidney Injury. Pt admitted to ICU and initiated on Sepsis protocol, as well as DKA protocol. Nephrology consulted in ED. Pulmonary team consulted in ED. No further history obtainable. No prior admission for review. No medication listed at time of admission for reconciliation. Patient was then admitted and commenced on DKA protocol. Glucose 1088 on admit, now 195. BUN 200 on admit, now 98. Found to be hypernatremic with improved glycemic control. Low T4 and elevarted TSH levels - Sepsis - Fever and white count since resolved. Unclear etiology of sepsis as all cultures are negative. Would continue to levofloxacin for now while blood cultures continue to incub ate. Possible UTI, UA with pyuria but otherwise not significant. UCx negative. - DKA resolved. Continue with insulin therapy Accu-Check NG tube feeding Pull NGT today but reinserted - JAVY due to vasomotor nephropathy - improving IV hydration Nephrology consulted and following - Hypernatremia -improved continue free water via NG tube - Hypothyroidism Supplement thyroid - UTI will continuelevofloxacin. Urine Cx no growth so far - Metabolic encephalopathy - improving. Able to open obey simple commands Continue with treatment of underlying conditions that include, sepsis, DKA and electrolyte imbalance - Rhabdomylosis - improving Cautious IV hydration Serial CK levels - Dark stool - none today stool Hemocult iv pentaprazole GI consult input appreciated - DVT and GI prophylaxis with Lovenox and omeprazole - CODE STATUS: Patient is full code - Critical care time: >30 minutes Subjective Date of service: 11/10/18 Principal diagnosis: Ac hypoxemic resp failure; Severe sepsis; DKA; JAVY; Ac encephalopathy; UTI Interval history: Patient seen and examined. More alert and minimally interactive. Had fever 101 last night. Pulled out his NGT yesterday. Reinserted. Objective - Exam Narrative Exam: Constitutional: More alert. Opens eyes to voice command. Still Ill-looking Head: Normocephalic atraumatic Eyes: Pupils are equal round and reactive to light Nose: No enlarged turbinates, no septal deviation. Mouth: Moist mucous membranes. ON NGT feeding Neck: Supple no thyromegaly. No bruit. No JVD Heart: Regular rate and rhythm, S1-S2 normal. No rubs murmurs or gallop Lungs: Clear to auscultation bilaterally. no rales or rhonchi Abdomen: Soft, nontender. Bowel sound are present. Extremities: No edema, no cyanosis, no clubbing. skin ulcers Neuro: Open eyes on voice command. Answers short question appropriately. Able to wiggle his toes and finger on command Skin: Skin ulcer in the lower extrmities Musculoskeletal system: No joint pain or swelling Hematological: No petechia or subcutanous hemorrhages. Immunological: No multiple septic spots on the skin Lymphatic: No generalized lymphadenopathy Psychiatry: Still Weak - Constitutional Vitals: Vital Signs - 12hr 11/09/18 11/09/18 11/09/18 18:31 19:01 19:31 Temperature Pulse Rate 88 86 91 H Pulse Rate [ From Monitor] Pulse Rate [ Right Dorsalis Pedis] Respiratory 20 22 11 L Rate Blood Pressure 109/61 109/61 109/61 O2 Sat by Pulse 95 96 97 Oximetry 11/09/18 11/09/18 11/09/18 19:37 19:46 20:00 Temperature 99.5 F 97.0 F L Pulse Rate 92 H Pulse Rate [ 92 H From Monitor] Pulse Rate [ 98 H Right Dorsalis Pedis] Respiratory 16 Rate Blood Pressure O2 Sat by Pulse 98 99 Oximetry 11/09/18 11/09/18 11/09/18 20:01 20:31 20:47 Temperature 101.0 F H Pulse Rate 90 94 H Pulse Rate [ From Monitor] Pulse Rate [ Right Dorsalis Pedis] Respiratory 14 16 Rate Blood Pressure 109/61 109/61 O2 Sat by Pulse 98 97 Oximetry 11/09/18 11/09/18 11/09/18 21:01 21:31 22:01 Temperature Pulse Rate 93 H 98 H 92 H Pulse Rate [ From Monitor] Pulse Rate [ Right Dorsalis Pedis] Respiratory 25 H 24 25 H Rate Blood Pressure 109/61 109/61 109/61 O2 Sat by Pulse 96 91 91 Oximetry 11/09/18 11/09/18 11/09/18 22:31 22:46 23:01 Temperature 97.1 F L Pulse Rate 92 H 97 H Pulse Rate [ From Monitor] Pulse Rate [ Right Dorsalis Pedis] Respiratory 29 H 17 Rate Blood Pressure 109/61 109/61 O2 Sat by Pulse 95 96 Oximetry 11/09/18 11/09/18 11/09/18 23:16 23:31 23:37 Temperature Pulse Rate 93 H 97 H 96 H Pulse Rate [ From Monitor] Pulse Rate [ Right Dorsalis Pedis] Respiratory 24 23 29 H Rate Blood Pressure 109/61 109/61 109/61 O2 Sat by Pulse 97 97 97 Oximetry 11/09/18 11/10/18 11/10/18 23:41 00:00 00:01 Temperature 97 F L Pulse Rate 97 H 86 97 H Pulse Rate [ 86 From Monitor] Pulse Rate [ 98 H Right Dorsalis Pedis] Respiratory 20 23 12 Rate Blood Pressure 109/61 109/61 O2 Sat by Pulse 98 99 98 Oximetry 11/10/18 11/10/18 11/10/18 00:31 01:01 01:31 Temperature 98.5 F Pulse Rate 95 H 91 H 90 Pulse Rate [ From Monitor] Pulse Rate [ Right Dorsalis Pedis] Respiratory 24 20 28 H Rate Blood Pressure 109/61 109/61 109/61 O2 Sat by Pulse 96 98 98 Oximetry 11/10/18 11/10/18 11/10/18 02:01 02:31 03:01 Temperature Pulse Rate 92 H 94 H 91 H Pulse Rate [ From Monitor] Pulse Rate [ Right Dorsalis Pedis] Respiratory 24 16 21 Rate Blood Pressure 109/61 109/61 109/61 O2 Sat by Pulse 98 99 98 Oximetry 11/10/18 11/10/18 11/10/18 03:25 03:31 04:00 Temperature 98.0 F Pulse Rate 87 90 91 H Pulse Rate [ From Monitor] Pulse Rate [ Right Dorsalis Pedis] Respiratory 22 20 Rate Blood Pressure 109/61 109/61 O2 Sat by Pulse 98 97 Oximetry 11/10/18 05:00 Temperature 98.8 F Pulse Rate Pulse Rate [ From Monitor] Pulse Rate [ Right Dorsalis Pedis] Respiratory Rate Blood Pressure O2 Sat by Pulse Oximetry - Labs CBC & Chem 7: 11/10/18 04:46 11/10/18 04:46 Labs: Abnormal lab results 11/09/18 11/09/18 11/09/18 Range/Units 05:24 09:15 13:12 RBC (3.65-5.03) M/mm3 Hgb (11.8-15.2) gm/dl Hct (35.5-45.6) % Lymph % (Auto) (13.4-35.0) % [place] % (Auto) (0.0-7.3) % Lymph # (1.2-5.4) K/mm3 Seg Neutrophils % (40.0-70.0) % Sodium (137-145) mmol/L Potassium (3.6-5.0) mmol/L Chloride (98-107) mmol/L BUN (9-20) mg/dL Glucose (75-100) mg/dL POC Glucose 304 H 297 H 300 H (70-105) Calcium (8.4-10.2) mg/dL Total Protein (6.3-8.2) g/dL Albumin (3.9-5) g/dL 11/09/18 11/09/18 11/10/18 Range/Units 17:35 21:09 00:55 RBC (3.65-5.03) M/mm3 Hgb (11.8-15.2) gm/dl Hct (35.5-45.6) % Lymph % (Auto) (13.4-35.0) % [place] % (Auto) (0.0-7.3) % Lymph # (1.2-5.4) K/mm3 Seg Neutrophils % (40.0-70.0) % Sodium (137-145) mmol/L Potassium (3.6-5.0) mmol/L Chloride (98-107) mmol/L BUN (9-20) mg/dL Glucose (75-100) mg/dL POC Glucose 262 H 213 H 283 H (70-105) Calcium (8.4-10.2) mg/dL Total Protein (6.3-8.2) g/dL Albumin (3.9-5) g/dL 11/10/18 11/10/18 11/10/18 Range/Units 04:46 04:46 05:12 RBC 3.17 L (3.65-5.03) M/mm3 Hgb 9.6 L (11.8-15.2) gm/dl Hct 28.7 L (35.5-45.6) % Lymph % (Auto) 10.3 L (13.4-35.0) % [place] % (Auto) 10.0 H (0.0-7.3) % Lymph # 0.8 L (1.2-5.4) K/mm3 Seg Neutrophils % 78.6 H (40.0-70.0) % Sodium 151 H (137-145) mmol/L Potassium 3.5 L (3.6-5.0) mmol/L Chloride 115.1 H (98-107) mmol/L BUN 30 H (9-20) mg/dL Glucose 183 H (75-100) mg/dL POC Glucose 201 H (70-105) Calcium 7.8 L (8.4-10.2) mg/dL Total Protein 5.7 L (6.3-8.2) g/dL Albumin 1.8 L (3.9-5) g/dL
--- NOTE | 2018-11-10 08:26 | Progress Note ---
Assessment and Plan 1. Acute kidney injury: Vasomotor JAVY in the setting of volume depletion and DKA. Renal US was negative for hydro. Continue IV fluids. Renal function is improving. Monitor renal function. Renal prognosis is guarded. Avoid nephrotoxic agents. Meds dosage based on GFR. 2. FEN: Hyperkalemia, improved. Hypernatremia, continue IV D5W and water flushes. Metabolic acidosis, improved. Monitor lytes. 3. DKA: Improved. 4. Hyperglycemia. 5. Sepsis: ?UTI. On Levofloxacin. 6. Metabolic Encephalopathy. Subjective Date of service: 11/10/18 Principal diagnosis: Ac hypoxemic resp failure; Severe sepsis; DKA; JAVY; Ac encephalopathy; UTI Interval history: Patient was seen and examined at the bedside. Objective - Vital Signs Vital signs: Vital Signs - 12hr 11/09/18 11/09/18 11/09/18 20:31 20:47 21:01 Temperature 101.0 F H Pulse Rate 94 H 93 H Pulse Rate [ From Monitor] Pulse Rate [ Right Dorsalis Pedis] Respiratory 16 25 H Rate Blood Pressure 109/61 109/61 O2 Sat by Pulse 97 96 Oximetry 11/09/18 11/09/18 11/09/18 21:31 22:01 22:31 Temperature Pulse Rate 98 H 92 H 92 H Pulse Rate [ From Monitor] Pulse Rate [ Right Dorsalis Pedis] Respiratory 24 25 H 29 H Rate Blood Pressure 109/61 109/61 109/61 O2 Sat by Pulse 91 91 95 Oximetry 11/09/18 11/09/18 11/09/18 22:46 23:01 23:16 Temperature 97.1 F L Pulse Rate 97 H 93 H Pulse Rate [ From Monitor] Pulse Rate [ Right Dorsalis Pedis] Respiratory 17 24 Rate Blood Pressure 109/61 109/61 O2 Sat by Pulse 96 97 Oximetry 11/09/18 11/09/18 11/09/18 23:31 23:37 23:41 Temperature Pulse Rate 97 H 96 H 97 H Pulse Rate [ From Monitor] Pulse Rate [ Right Dorsalis Pedis] Respiratory 23 29 H 20 Rate Blood Pressure 109/61 109/61 109/61 O2 Sat by Pulse 97 97 98 Oximetry 11/10/18 11/10/18 11/10/18 00:00 00:01 00:31 Temperature 97 F L 98.5 F Pulse Rate 86 97 H 95 H Pulse Rate [ 86 From Monitor] Pulse Rate [ 98 H Right Dorsalis Pedis] Respiratory 23 12 24 Rate Blood Pressure 109/61 109/61 O2 Sat by Pulse 99 98 96 Oximetry 11/10/18 11/10/18 11/10/18 01:01 01:31 02:01 Temperature Pulse Rate 91 H 90 92 H Pulse Rate [ From Monitor] Pulse Rate [ Right Dorsalis Pedis] Respiratory 20 28 H 24 Rate Blood Pressure 109/61 109/61 109/61 O2 Sat by Pulse 98 98 98 Oximetry 11/10/18 11/10/18 11/10/18 02:31 03:01 03:25 Temperature Pulse Rate 94 H 91 H 87 Pulse Rate [ From Monitor] Pulse Rate [ Right Dorsalis Pedis] Respiratory 16 21 22 Rate Blood Pressure 109/61 109/61 109/61 O2 Sat by Pulse 99 98 98 Oximetry 11/10/18 11/10/18 11/10/18 03:31 04:00 04:01 Temperature 98.0 F Pulse Rate 90 91 H 92 H Pulse Rate [ 95 H From Monitor] Pulse Rate [ 102 H Right Dorsalis Pedis] Respiratory 20 19 21 Rate Blood Pressure 109/61 109/61 O2 Sat by Pulse 97 96 98 Oximetry 11/10/18 11/10/18 11/10/18 04:31 05:00 05:01 Temperature 98.8 F Pulse Rate 85 85 Pulse Rate [ From Monitor] Pulse Rate [ Right Dorsalis Pedis] Respiratory 26 H 12 Rate Blood Pressure 109/61 109/61 O2 Sat by Pulse 98 95 Oximetry 11/10/18 11/10/18 11/10/18 05:30 05:31 06:01 Temperature Pulse Rate 92 H 85 Pulse Rate [ From Monitor] Pulse Rate [ Right Dorsalis Pedis] Respiratory 21 14 22 Rate Blood Pressure 109/61 109/61 O2 Sat by Pulse 98 96 93 Oximetry 11/10/18 06:31 Temperature Pulse Rate 85 Pulse Rate [ From Monitor] Pulse Rate [ Right Dorsalis Pedis] Respiratory 25 H Rate Blood Pressure 109/61 O2 Sat by Pulse 94 Oximetry - General Appearance General appearance: well-developed, appears stated age, other (not in distress, NG tube noted) EENT: ATNC, PERRL Neck: supple Respiratory: Present: Clear to Ascultation Cardiology: regular, S1S2, no murmurs Gastrointestinal: normoactive bowel sounds, no tenderness, no distended Integumentary: no rash, warm and dry Neurologic: other (able to move extremities) Musculoskeletal: other (no edema) - Lab 11/11/18 04:42 11/11/18 04:42 Most recent lab results Calcium 7.8 mg/dL (8.4-10.2) L 11/10/18 04:46 Phosphorus 3.10 mg/dL (2.5-4.5) D 11/10/18 04:46 Magnesium 2.50 mg/dL (1.7-2.3) H 11/07/18 04:13 58.1 mg/dL (0.1-20.0) H 11/04/18 20:55 34 mmol/L 11/04/18 20:55 Medications & Allergies - Medications Allergies/Adverse Reactions: Allergies No Known Allergies Allergy (Unverified 11/04/18 15:22) Home Medications: Home Medications Medication Instructions Recorded Confirmed Last Taken Type Glimepiride 4 mg PO BID 11/06/18 11/06/18 Unknown History HYDROcodone/ACETAMINOPHEN 5 - 325 mg PO Q4-6H PRN 11/06/18 11/06/18 Unknown History Ibuprofen 800 mg PO Q8HR PRN 11/06/18 11/06/18 Unknown History Lisinopril 2.5 mg PO DAILY 11/06/18 11/06/18 Unknown History Metformin HCl 1,000 mg PO BID 11/06/18 11/06/18 Unknown History NovoLIN N 5 unit SUB-Q BID MDD x 90days 11/06/18 11/06/18 Unknown History Pravastatin Sodium 20 mg PO BID 11/06/18 11/06/18 Unknown History glipiZIDE 10 mg PO BID 11/06/18 11/06/18 Unknown History Active Medications: Generic Name Dose Route Start Last Admin Trade Name Freq PRN Reason Stop Dose Admin Acetaminophen 650 mg 11/09/18 04:21 Tylenol FEEDTUBE Q4H PRN Fever >101 Albuterol 2.5 mg 11/04/18 17:42 Proventil IH Q3H PRN Shortness Of Breath Lipase/Protease/Amylase 1 each 11/06/18 15:[address] 10,500 Unit FEEDTUBE PRN PRN For Clogged Feeding Tube Dextrose 0 ml 11/04/18 15:40 D50w (25gm) Syringe IV PRN PRN Hypoglycemia Heparin Sodium (Porcine) 5,000 unit 11/04/18 22:00 11/09/18 21:14 Heparin SUB-Q 5,000 unit Q12HR MARIEL Administration Dextrose 1,000 mls @ 75 mls/hr 11/07/18 15:00 11/09/18 21:16 D5w IV 150 mls/hr DIRECT MARIEL Administration Insulin Glargine 35 units 11/08/18 22:00 11/09/18 21:13 Lantus SUB-Q 35 units QHS MARIEL Administration Insulin Human Lispro 0 unit 11/05/18 17:00 11/10/18 05:40 Humalog SUB-Q 3 unit Q4H MARIEL Administration Protocol Lansoprazole 30 mg 11/08/18 10:00 11/09/18 21:13 Prevacid Solutab FEEDTUBE 30 mg BID MARIEL Administration Levofloxacin 750 mg 11/10/18 10:00 Levaquin PO Q24HR MARIEL Simple Syrup 15 ml 11/06/18 15:57 Simple Syrup FEEDTUBE PRN PRN Hypoglycemia Simple Syrup 30 ml 11/06/18 15:57 Simple Syrup FEEDTUBE PRN PRN Hypoglycemia Sodium Bicarbonate 325 mg 11/06/18 15:57 Sodium Bicarbonate FEEDTUBE PRN PRN For Clogged Feeding Tube Sodium Chloride 10 ml 11/04/18 22:00 11/09/18 21:45 Sodium Chloride Flush Syringe 10 Ml IV 10 ml BID MARIEL Administration Sodium Chloride 10 ml 11/04/18 17:42 Sodium Chloride Flush Syringe 10 Ml IV PRN PRN LINE FLUSH Tamsulosin HCl 0.4 mg 11/07/18 13:00 11/09/18 09:19 Flomax PO 0.4 mg QDAY MARIEL Administration
[2018-11-10] MEDS: D5W 1,000 ML IV SCH ×2 (10:36→23:06)
[2018-11-10] MEDS: FLOMAX PO SCH (10:38)
[2018-11-10] MEDS: LEVAQUIN PO SCH (10:38)
[2018-11-10] MEDS: PREVACID SOLUTAB FEEDTUBE SCH ×2 (10:38→22:34)
[2018-11-10] MEDS: HEPARIN SUB-Q SCH ×2 (10:38→22:32)
[2018-11-10] MEDS: SODIUM CHLORIDE FLUSH SYRINGE 10 ML IV SCH ×2 (10:39→22:35)
--- NOTE | 2018-11-10 11:18 | Progress Note ---
Assessment and Plan Cultures/ID labs: Urine cultures negative Blood culture NGTD A/P: 53 yo M PMHx diabetes found down in his apartment in DKA with metabolic encephalopathy. Febrile and leukocytosis on admission, initially concerned for UTI. 1) Recurrent fevers - recur overnight but remains afebrile throughout the day. Unclear etiology, normal white count, no new symptoms. Will continue to monitor. 2) JAVY - Improving. 3) DKA 4) Metabolic encephalopathy 5) Rhabdomylosis Recs: Continue levofloxacin 750mg PO today. Would give tomorrow's dose then stop. daily CBC with diff Thank you for the consult, we will continue to follow along. Riana Fuentes MD [facility] C: [phone] O: [phone] F: [phone] Subjective Date of service: 11/10/18 Principal diagnosis: Ac hypoxemic resp failure; Severe sepsis; DKA; JAVY; Ac encephalopathy; UTI Interval history: Pt feeling improved this morning, voice improved and able to verbalize. No new complaints, just feeling week at the present time. Objective - Exam Narrative Exam: Constitutional: awake, no distress, following commands Head, Ears, Nose: Normocephalic, atraumatic. External ears, nose normal Eyes: Conjunctivae/corneas clear. No icterus. No ptosis. Neck: Supple, no meningeal signs Oral: poor dentition, moist mucous membranes Cardiovascular: S1, S2 normal. Normal rhythm Respiratory: Good air entry, clear to auscultation bilaterally GI: Soft, non-tender; bowel sounds normal. No peritoneal signs Musculoskeletal: No pedal edema, Skin: No rash or abscess Hem/Lymphatic: No palpable cervical or supraclavicular nodes. No lymphangitis Psych: no agitation Neurological: Moves all extremities, no focal defects - Constitutional Vitals: Vital Signs Temp Pulse Resp BP Pulse Ox 98.8 F 85 25 H 109/61 94 11/10/18 05:00 11/10/18 06:31 11/10/18 06:31 11/10/18 06:31 11/10/18 09:18 Temperature -Last 24 Hours Temperature 98.8 F Temperature 98.0 F Temperature 98.5 F Temperature 97 F Temperature 97.1 F Temperature 101.0 F Temperature 97.0 F Temperature 99.5 F Temperature 99.4 F Temperature 99.4 F Temperature 97.8 F - Labs CBC & Chem 7: 11/10/18 04:46 11/10/18 04:46 Labs: Abnormal lab results 11/09/18 11/09/18 11/09/18 Range/Units 13:12 17:35 21:09 RBC (3.65-5.03) M/mm3 Hgb (11.8-15.2) gm/dl Hct (35.5-45.6) % Lymph % (Auto) (13.4-35.0) % [place] % (Auto) (0.0-7.3) % Lymph # (1.2-5.4) K/mm3 Seg Neutrophils % (40.0-70.0) % Sodium (137-145) mmol/L Potassium (3.6-5.0) mmol/L Chloride (98-107) mmol/L BUN (9-20) mg/dL Glucose (75-100) mg/dL POC Glucose 300 H 262 H 213 H (70-105) Calcium (8.4-10.2) mg/dL Total Creatine Kinase (55-170) units/L Total Protein (6.3-8.2) g/dL Albumin (3.9-5) g/dL 11/10/18 11/10/18 11/10/18 Range/Units 00:55 04:46 04:46 RBC 3.17 L (3.65-5.03) M/mm3 Hgb 9.6 L (11.8-15.2) gm/dl Hct 28.7 L (35.5-45.6) % Lymph % (Auto) 10.3 L (13.4-35.0) % [place] % (Auto) 10.0 H (0.0-7.3) % Lymph # 0.8 L (1.2-5.4) K/mm3 Seg Neutrophils % 78.6 H (40.0-70.0) % Sodium 151 H (137-145) mmol/L Potassium 3.5 L (3.6-5.0) mmol/L Chloride 115.1 H (98-107) mmol/L BUN 30 H (9-20) mg/dL Glucose 183 H (75-100) mg/dL POC Glucose 283 H (70-105) Calcium 7.8 L (8.4-10.2) mg/dL Total Creatine Kinase (55-170) units/L Total Protein 5.7 L (6.3-8.2) g/dL Albumin 1.8 L (3.9-5) g/dL 11/10/18 11/10/18 11/10/18 Range/Units 04:46 05:12 08:06 RBC (3.65-5.03) M/mm3 Hgb (11.8-15.2) gm/dl Hct (35.5-45.6) % Lymph % (Auto) (13.4-35.0) % [place] % (Auto) (0.0-7.3) % Lymph # (1.2-5.4) K/mm3 Seg Neutrophils % (40.0-70.0) % Sodium (137-145) mmol/L Potassium (3.6-5.0) mmol/L Chloride (98-107) mmol/L BUN (9-20) mg/dL Glucose (75-100) mg/dL POC Glucose 201 H 195 H (70-105) Calcium (8.4-10.2) mg/dL Total Creatine Kinase 408 H (55-170) units/L Total Protein (6.3-8.2) g/dL Albumin (3.9-5) g/dL
--- NOTE | 2018-11-10 16:00 | Progress Note ---
Assessment and Plan Acute hypoxemic respiratory failure, on supplemental oxygen. Severe sepsis with shock (unspecified) Diabetic ketoacidosis, resolved Acute kidney injury, resolved Rhabdomyolysis. Acute encephalopathy,much improved Hyperkalemia, resolved. Possible urinary tract infection. Severe metabolic acidosis, resolved. Leukocytosis, resolved - continue supplemental oxygen as needed to keep O2 sat's > 90% - continue free water flushes - antibiotics per ID - continue long acting insulin therapy with SSI for target BG < 180 mg/dl acutely - Azotemia improving; continue gentle hydration - avoid nephrotoxins , dose all medicationsfor GFR/CrCL - wound care per WCT - continue VTE prophylaxis -continue enteral nutrition as tolerated, aspiration precautions -continue speech and swallow therapy -Monitor fever curve and trend WCC- currently no leukocytosis -continue PT/OT -Supportive care -prn bronchodilators with pulmonary hygiene per RT -Discharge planning Subjective Date of service: 11/10/18 Principal diagnosis: Ac hypoxemic resp failure; Severe sepsis; DKA; JAVY; Ac encephalopathy; UTI Interval history: Patient is seen today for: Acute hypoxemic respiratory failure; Severe sepsis with shock; Diabetic ketoacidosis; Acute kidney injury; Rhabdomyolysis; Acute encephalopathy, likely toxic metabolic; Hyperkalemia; Possible urinary tract infection; Severe metabolic acidosis; Possible hypothyroidism; Leukocytosis Seen and examined at bedside; 24hour events reviewed; nursing and respiratory care staff consulted; no adverse overnight events reported to me; resting peacefully in bed;, over night fever, no vomiting, no diarrhea. Vitals, labs, medications, chart reviewed Objective - Exam Narrative Exam: Constitutional: awake, no distress, following commands Head, Ears, Nose: Normocephalic, atraumatic. External ears, nose normal Eyes: Conjunctivae/corneas clear. No icterus. No ptosis. Neck: Supple, no meningeal signs Oral: poor, moist mucous membranes Cardiovascular: S1, S2 normal. Normal rhythm Respiratory: Good air entry, clear to auscultation bilaterally GI: Soft, non-tender; bowel sounds normal. No peritoneal signs Musculoskeletal: No pedal edema, Skin: No rash or abscess Hem/Lymphatic: No palpable cervical or supraclavicular nodes. No lymphangitis Psych: no agitation Neurological: Moves all extremities, no focal defects Vital Signs - 12hr 11/10/18 11/10/18 11/10/18 04:01 04:31 05:00 Temperature 98.8 F Pulse Rate 92 H 85 Respiratory 21 26 H Rate Blood Pressure 109/61 109/61 O2 Sat by Pulse 98 98 Oximetry 11/10/18 11/10/18 11/10/18 05:01 05:30 05:31 Temperature Pulse Rate 85 92 H Respiratory 12 21 14 Rate Blood Pressure 109/61 109/61 O2 Sat by Pulse 95 98 96 Oximetry 11/10/18 11/10/18 11/10/18 06:01 06:31 07:01 Temperature Pulse Rate 85 85 83 Respiratory 22 25 H 24 Rate Blood Pressure 109/61 109/61 109/61 O2 Sat by Pulse 93 94 95 Oximetry 11/10/18 11/10/18 11/10/18 07:31 08:00 08:01 Temperature 100.1 F H Pulse Rate 90 89 Respiratory 20 16 Rate Blood Pressure 109/61 109/61 O2 Sat by Pulse 94 94 Oximetry 11/10/18 11/10/18 11/10/18 08:31 09:01 09:18 Temperature Pulse Rate 94 H 92 H Respiratory 12 23 Rate Blood Pressure 109/61 109/61 O2 Sat by Pulse 96 94 94 Oximetry 11/10/18 11/10/18 11/10/18 09:31 10:01 10:31 Temperature Pulse Rate 92 H 94 H 94 H Respiratory 21 15 18 Rate Blood Pressure 109/61 109/61 109/61 O2 Sat by Pulse 95 95 95 Oximetry 11/10/18 11/10/18 11/10/18 11:01 11:31 12:00 Temperature 99.3 F Pulse Rate 94 H 93 H Respiratory 15 16 Rate Blood Pressure 109/61 109/61 O2 Sat by Pulse 96 96 Oximetry 11/10/18 11/10/18 11/10/18 12:01 12:31 13:01 Temperature Pulse Rate 91 H 93 H 90 Respiratory 19 10 L 20 Rate Blood Pressure 109/61 109/61 109/61 O2 Sat by Pulse 96 96 97 Oximetry 11/10/18 13:31 Temperature Pulse Rate 93 H Respiratory 24 Rate Blood Pressure 109/61 O2 Sat by Pulse 95 Oximetry CBC and BMP: 11/11/18 04:42 11/11/18 04:42 ABG, PT/INR, D-dimer: ABG POC ABG pH 7.432 (7.35-7.45) 11/05/18 17:08 POC ABG pCO2 32.3 (35-45) L 11/05/18 17:08 POC ABG HCO3 21.5 (22-26 mml/L) 11/05/18 17:08 POC ABG Total CO2 23 (23-27mmol/L) 11/05/18 17:08 POC ABG O2 Sat 85 11/05/18 17:08 PT/INR, D-dimer PT 15.6 Sec. (12.2-14.9) H 11/04/18 16:05 INR 1.27 (0.87-1.13) H 11/04/18 16:05 Abnormal lab findings: Abnormal Labs 11/04/18 11/04/18 11/04/18 15:23 15:35 16:05 WBC 12.6 H RBC Hgb Hct Plt Count Lymph % (Auto) Ward % (Auto) Lymph # Seg Neutrophils % Seg Neuts % (Manual) 84.0 H Lymphocytes % (Manual) 1.0 L Seg Neutrophils # Seg Neutrophils # Man 10.6 H Lymphocytes # (Manual) 0.1 L PT INR POC ABG pCO2 VBG pH Sodium Potassium Chloride Carbon Dioxide BUN Creatinine Glucose POC Glucose > 500 H Lactic Acid Calcium Ionized Calcium Phosphorus Magnesium AST Total Creatine Kinase C-Reactive Protein Total Protein Albumin TSH Free T4 PTH Intact Urine WBC (Auto) 12.0 H Urine Creatinine Salicylates Acetaminophen 11/04/18 11/04/18 11/04/18 16:05 16:05 16:05 WBC RBC Hgb Hct Plt Count Lymph % (Auto) Ward % (Auto) Lymph # Seg Neutrophils % Seg Neuts % (Manual) Lymphocytes % (Manual) Seg Neutrophils # Seg Neutrophils # Man Lymphocytes # (Manual) PT 15.6 H INR 1.27 H POC ABG pCO2 VBG pH Sodium 153 H Potassium 6.2 H* Chloride Carbon Dioxide 18 L BUN 200 H Creatinine 6.8 H Glucose 1088 H* POC Glucose Lactic Acid 2.80 H* Calcium 7.2 L Ionized Calcium Phosphorus Magnesium AST Total Creatine Kinase C-Reactive Protein Total Protein Albumin 3.1 L TSH Free T4 PTH Intact Urine WBC (Auto) Urine Creatinine Salicylates Acetaminophen 11/04/18 11/04/18 11/04/18 16:05 16:05 16:05 WBC RBC Hgb Hct Plt Count Lymph % (Auto) Ward % (Auto) Lymph # Seg Neutrophils % Seg Neuts % (Manual) Lymphocytes % (Manual) Seg Neutrophils # Seg Neutrophils # Man Lymphocytes # (Manual) PT INR POC ABG pCO2 VBG pH 7.245 L Sodium Potassium Chloride Carbon Dioxide BUN Creatinine Glucose POC Glucose Lactic Acid Calcium Ionized Calcium Phosphorus 13.80 H Magnesium 3.60 H AST Total Creatine Kinase C-Reactive Protein Total Protein Albumin TSH 0.169 L Free T4 0.68 L PTH Intact Urine WBC (Auto) Urine Creatinine Salicylates Acetaminophen 11/04/18 11/04/18 11/04/18 16:05 16:48 19:40 WBC RBC Hgb Hct Plt Count Lymph % (Auto) Ward % (Auto) Lymph # Seg Neutrophils % Seg Neuts % (Manual) Lymphocytes % (Manual) Seg Neutrophils # Seg Neutrophils # Man Lymphocytes # (Manual) PT INR POC ABG pCO2 VBG pH Sodium Potassium Chloride Carbon Dioxide BUN Creatinine Glucose POC Glucose > 500 H 458 H Lactic Acid Calcium Ionized Calcium Phosphorus Magnesium AST Total Creatine Kinase 1857 H C-Reactive Protein Total Protein Albumin TSH Free T4 PTH Intact Urine WBC (Auto) Urine Creatinine Salicylates Acetaminophen 11/04/18 11/04/18 11/04/18 20:29 20:29 20:29 WBC RBC Hgb Hct Plt Count Lymph % (Auto) Ward % (Auto) Lymph # Seg Neutrophils % Seg Neuts % (Manual) Lymphocytes % (Manual) Seg Neutrophils # Seg Neutrophils # Man Lymphocytes # (Manual) PT INR POC ABG pCO2 VBG pH Sodium 163 H* D Potassium Chloride 121.4 H Carbon Dioxide 21 L BUN 166 H Creatinine 5.6 H Glucose 513 H* POC Glucose Lactic Acid 3.30 H* 3.30 H* Calcium 6.4 L Ionized Calcium Phosphorus Magnesium AST Total Creatine Kinase C-Reactive Protein Total Protein Albumin TSH Free T4 PTH Intact Urine WBC (Auto) Urine Creatinine Salicylates Acetaminophen 11/04/18 11/04/18 11/04/18 20:55 21:03 22:00 WBC RBC Hgb Hct Plt Count Lymph % (Auto) Ward % (Auto) Lymph # Seg Neutrophils % Seg Neuts % (Manual) Lymphocytes % (Manual) Seg Neutrophils # Seg Neutrophils # Man Lymphocytes # (Manual) PT INR POC ABG pCO2 VBG pH Sodium Potassium Chloride Carbon Dioxide BUN Creatinine Glucose POC Glucose 496 H Lactic Acid 3.60 H* Calcium Ionized Calcium Phosphorus Magnesium AST Total Creatine Kinase C-Reactive Protein Total Protein Albumin TSH Free T4 PTH Intact Urine WBC (Auto) Urine Creatinine 58.1 H Salicylates Acetaminophen 11/04/18 11/04/18 11/04/18 22:04 23:07 23:47 WBC RBC Hgb Hct Plt Count Lymph % (Auto) Ward % (Auto) Lymph # Seg Neutrophils % Seg Neuts % (Manual) Lymphocytes % (Manual) Seg Neutrophils # Seg Neutrophils # Man Lymphocytes # (Manual) PT INR POC ABG pCO2 VBG pH Sodium 170 H* Potassium Chloride 127.1 H Carbon Dioxide BUN 164 H Creatinine 5.2 H Glucose 213 H POC Glucose 357 H 306 H Lactic Acid Calcium 6.5 L Ionized Calcium Phosphorus Magnesium AST Total Creatine Kinase C-Reactive Protein Total Protein Albumin TSH Free T4 PTH Intact Urine WBC (Auto) Urine Creatinine Salicylates Acetaminophen 11/04/18 11/05/18 11/05/18 23:47 00:04 00:09 WBC RBC Hgb Hct Plt Count Lymph % (Auto) Ward % (Auto) Lymph # Seg Neutrophils % Seg Neuts % (Manual) Lymphocytes % (Manual) Seg Neutrophils # Seg Neutrophils # Man Lymphocytes # (Manual) PT INR POC ABG pCO2 VBG pH Sodium 163 H* Potassium Chloride 127.5 H Carbon Dioxide BUN 117 H Creatinine 3.3 H Glucose 235 H POC Glucose 219 H Lactic Acid 3.20 H* Calcium 6.8 L Ionized Calcium Phosphorus Magnesium AST Total Creatine Kinase C-Reactive Protein Total Protein Albumin TSH Free T4 PTH Intact Urine WBC (Auto) Urine Creatinine Salicylates Acetaminophen 11/05/18 11/05/18 11/05/18 00:59 03:13 03:52 WBC RBC Hgb Hct Plt Count Lymph % (Auto) Ward % (Auto) Lymph # Seg Neutrophils % Seg Neuts % (Manual) Lymphocytes % (Manual) Seg Neutrophils # Seg Neutrophils # Man Lymphocytes # (Manual) PT INR POC ABG pCO2 VBG pH Sodium Potassium Chloride Carbon Dioxide BUN Creatinine Glucose POC Glucose 204 H 124 H Lactic Acid Calcium Ionized Calcium Phosphorus Magnesium AST Total Creatine Kinase 1680 H C-Reactive Protein Total Protein Albumin TSH Free T4 PTH Intact Urine WBC (Auto) Urine Creatinine Salicylates Acetaminophen 11/05/18 11/05/18 11/05/18 03:52 04:25 05:11 WBC RBC Hgb Hct Plt Count Lymph % (Auto) Ward % (Auto) Lymph # Seg Neutrophils % Seg Neuts % (Manual) Lymphocytes % (Manual) Seg Neutrophils # Seg Neutrophils # Man Lymphocytes # (Manual) PT INR POC ABG pCO2 VBG pH Sodium 169 H* Potassium Chloride 126.2 H Carbon Dioxide BUN 156 H Creatinine 4.7 H Glucose 128 H POC Glucose 150 H 173 H Lactic Acid Calcium 6.3 L Ionized Calcium Phosphorus Magnesium AST Total Creatine Kinase C-Reactive Protein Total Protein Albumin TSH Free T4 PTH Intact Urine WBC (Auto) Urine Creatinine Salicylates Acetaminophen 11/05/18 11/05/18 11/05/18 06:05 06:58 07:48 WBC RBC Hgb Hct Plt Count Lymph % (Auto) Ward % (Auto) Lymph # Seg Neutrophils % Seg Neuts % (Manual) Lymphocytes % (Manual) Seg Neutrophils # Seg Neutrophils # Man Lymphocytes # (Manual) PT INR POC ABG pCO2 VBG pH Sodium Potassium Chloride Carbon Dioxide BUN Creatinine Glucose POC Glucose 136 H 152 H 177 H Lactic Acid Calcium Ionized Calcium Phosphorus Magnesium AST Total Creatine Kinase C-Reactive Protein Total Protein Albumin TSH Free T4 PTH Intact Urine WBC (Auto) Urine Creatinine Salicylates Acetaminophen 11/05/18 11/05/18 11/05/18 08:21 08:21 08:23 WBC RBC Hgb Hct Plt Count Lymph % (Auto) Ward % (Auto) Lymph # Seg Neutrophils % Seg Neuts % (Manual) Lymphocytes % (Manual) Seg Neutrophils # Seg Neutrophils # Man Lymphocytes # (Manual) PT INR POC ABG pCO2 VBG pH Sodium 171 H* Potassium Chloride 128.9 H Carbon Dioxide BUN 149 H Creatinine 4.5 H Glucose 159 H POC Glucose 157 H Lactic Acid Calcium 6.7 L Ionized Calcium Phosphorus Magnesium AST Total Creatine Kinase C-Reactive Protein Total Protein Albumin TSH Free T4 PTH Intact 119.3 H Urine WBC (Auto) Urine Creatinine Salicylates Acetaminophen 11/05/18 11/05/18 11/05/18 10:21 11:12 12:37 WBC RBC Hgb Hct Plt Count Lymph % (Auto) Ward % (Auto) Lymph # Seg Neutrophils % Seg Neuts % (Manual) Lymphocytes % (Manual) Seg Neutrophils # Seg Neutrophils # Man Lymphocytes # (Manual) PT INR POC ABG pCO2 VBG pH Sodium Potassium Chloride Carbon Dioxide BUN Creatinine Glucose POC Glucose 171 H 155 H 145 H Lactic Acid Calcium Ionized Calcium Phosphorus Magnesium AST Total Creatine Kinase C-Reactive Protein Total Protein Albumin TSH Free T4 PTH Intact Urine WBC (Auto) Urine Creatinine Salicylates Acetaminophen 11/05/18 11/05/18 11/05/18 13:24 13:47 14:42 WBC RBC Hgb Hct Plt Count Lymph % (Auto) Ward % (Auto) Lymph # Seg Neutrophils % Seg Neuts % (Manual) Lymphocytes % (Manual) Seg Neutrophils # Seg Neutrophils # Man Lymphocytes # (Manual) PT INR POC ABG pCO2 VBG pH Sodium 167 H* Potassium Chloride 131.6 H Carbon Dioxide BUN 130 H Creatinine 3.8 H Glucose 136 H POC Glucose 137 H 133 H Lactic Acid Calcium 6.4 L Ionized Calcium Phosphorus Magnesium AST Total Creatine Kinase C-Reactive Protein Total Protein Albumin TSH Free T4 PTH Intact Urine WBC (Auto) Urine Creatinine Salicylates Acetaminophen 11/05/18 11/05/18 11/05/18 16:55 17:08 18:14 WBC RBC Hgb Hct Plt Count Lymph % (Auto) Ward % (Auto) Lymph # Seg Neutrophils % Seg Neuts % (Manual) Lymphocytes % (Manual) Seg Neutrophils # Seg Neutrophils # Man Lymphocytes # (Manual) PT INR POC ABG pCO2 32.3 L VBG pH Sodium Potassium Chloride Carbon Dioxide BUN Creatinine Glucose POC Glucose 194 H 195 H Lactic Acid Calcium Ionized Calcium Phosphorus Magnesium AST Total Creatine Kinase C-Reactive Protein Total Protein Albumin TSH Free T4 PTH Intact Urine WBC (Auto) Urine Creatinine Salicylates Acetaminophen 11/05/18 11/05/18 11/05/18 18:35 18:35 18:35 WBC RBC Hgb Hct Plt Count Lymph % (Auto) Ward % (Auto) Lymph # Seg Neutrophils % Seg Neuts % (Manual) Lymphocytes % (Manual) Seg Neutrophils # Seg Neutrophils # Man Lymphocytes # (Manual) PT INR POC ABG pCO2 VBG pH Sodium Potassium Chloride Carbon Dioxide BUN Creatinine Glucose POC Glucose Lactic Acid Calcium Ionized Calcium Phosphorus Magnesium AST Total Creatine Kinase C-Reactive Protein 19.50 H Total Protein Albumin TSH Free T4 PTH Intact Urine WBC (Auto) Urine Creatinine Salicylates < 0.3 L Acetaminophen < 5.0 L 11/05/18 11/06/18 11/06/18 21:09 01:36 04:50 WBC RBC Hgb 11.3 L Hct 32.8 L D Plt Count 110 L Lymph % (Auto) Ward % (Auto) Lymph # Seg Neutrophils % Seg Neuts % (Manual) Lymphocytes % (Manual) Seg Neutrophils # Seg Neutrophils # Man Lymphocytes # (Manual) PT INR POC ABG pCO2 VBG pH Sodium Potassium Chloride Carbon Dioxide BUN Creatinine Glucose POC Glucose 250 H 289 H Lactic Acid Calcium Ionized Calcium Phosphorus Magnesium AST Total Creatine Kinase C-Reactive Protein Total Protein Albumin TSH Free T4 PTH Intact Urine WBC (Auto) Urine Creatinine Salicylates Acetaminophen 11/06/18 11/06/18 11/06/18 04:50 04:50 05:14 WBC RBC Hgb Hct Plt Count Lymph % (Auto) Ward % (Auto) Lymph # Seg Neutrophils % Seg Neuts % (Manual) Lymphocytes % (Manual) Seg Neutrophils # Seg Neutrophils # Man Lymphocytes # (Manual) PT INR POC ABG pCO2 VBG pH Sodium 165 H* 164 H* Potassium Chloride 127.4 H Carbon Dioxide BUN 113 H Creatinine 3.2 H Glucose 208 H POC Glucose 215 H Lactic Acid Calcium 6.8 L Ionized Calcium Phosphorus Magnesium AST 55 H Total Creatine Kinase C-Reactive Protein Total Protein 5.2 L D Albumin 2.3 L TSH Free T4 PTH Intact Urine WBC (Auto) Urine Creatinine Salicylates Acetaminophen 11/06/18 11/06/18 11/06/18 07:50 08:50 12:16 WBC RBC Hgb Hct Plt Count Lymph % (Auto) Ward % (Auto) Lymph # Seg Neutrophils % Seg Neuts % (Manual) Lymphocytes % (Manual) Seg Neutrophils # Seg Neutrophils # Man Lymphocytes # (Manual) PT INR POC ABG pCO2 VBG pH Sodium 161 H* Potassium Chloride 126.0 H Carbon Dioxide BUN 111 H Creatinine 3.0 H Glucose 187 H POC Glucose 239 H 198 H Lactic Acid Calcium 7.0 L Ionized Calcium Phosphorus Magnesium AST Total Creatine Kinase C-Reactive Protein Total Protein Albumin TSH Free T4 PTH Intact Urine WBC (Auto) Urine Creatinine Salicylates Acetaminophen 11/06/18 11/06/18 11/06/18 15:42 15:42 17:59 WBC RBC Hgb Hct Plt Count Lymph % (Auto) Ward % (Auto) Lymph # Seg Neutrophils % Seg Neuts % (Manual) Lymphocytes % (Manual) Seg Neutrophils # Seg Neutrophils # Man Lymphocytes # (Manual) PT INR POC ABG pCO2 VBG pH Sodium 162 H* Potassium Chloride 127.3 H Carbon Dioxide BUN 98 H Creatinine 2.7 H Glucose 195 H POC Glucose 225 H Lactic Acid Calcium 7.1 L Ionized Calcium 4.4 L Phosphorus Magnesium AST Total Creatine Kinase C-Reactive Protein Total Protein Albumin TSH Free T4 PTH Intact Urine WBC (Auto) Urine Creatinine Salicylates Acetaminophen 11/06/18 11/06/18 11/06/18 21:21 21:24 21:24 WBC RBC Hgb 11.0 L Hct 33.4 L Plt Count Lymph % (Auto) Ward % (Auto) Lymph # Seg Neutrophils % Seg Neuts % (Manual) Lymphocytes % (Manual) Seg Neutrophils # Seg Neutrophils # Man Lymphocytes # (Manual) PT INR POC ABG pCO2 VBG pH Sodium Potassium Chloride Carbon Dioxide BUN Creatinine Glucose POC Glucose 272 H Lactic Acid Calcium Ionized Calcium Phosphorus Magnesium AST Total Creatine Kinase 3538 H C-Reactive Protein Total Protein Albumin TSH Free T4 PTH Intact Urine WBC (Auto) Urine Creatinine Salicylates Acetaminophen 11/07/18 11/07/18 11/07/18 02:01 04:13 04:13 WBC RBC Hgb 11.4 L Hct 33.8 L Plt Count 103 L Lymph % (Auto) Ward % (Auto) Lymph # Seg Neutrophils % Seg Neuts % (Manual) 83.0 H Lymphocytes % (Manual) 6.0 L Seg Neutrophils # Seg Neutrophils # Man Lymphocytes # (Manual) 0.6 L PT INR POC ABG pCO2 VBG pH Sodium 161 H* Potassium Chloride 125.8 H Carbon Dioxide BUN 80 H Creatinine 2.4 H Glucose 246 H POC Glucose 282 H Lactic Acid Calcium 7.4 L Ionized Calcium Phosphorus Magnesium 2.50 H AST 106 H Total Creatine Kinase C-Reactive Protein Total Protein 5.7 L Albumin 2.0 L TSH Free T4 PTH Intact Urine WBC (Auto) Urine Creatinine Salicylates Acetaminophen 11/07/18 11/07/18 11/07/18 04:13 05:17 09:15 WBC RBC Hgb Hct Plt Count Lymph % (Auto) Ward % (Auto) Lymph # Seg Neutrophils % Seg Neuts % (Manual) Lymphocytes % (Manual) Seg Neutrophils # Seg Neutrophils # Man Lymphocytes # (Manual) PT INR POC ABG pCO2 VBG pH Sodium Potassium Chloride Carbon Dioxide BUN Creatinine Glucose POC Glucose 256 H 287 H Lactic Acid Calcium Ionized Calcium Phosphorus Magnesium AST Total Creatine Kinase 2918 H C-Reactive Protein Total Protein Albumin TSH Free T4 PTH Intact Urine WBC (Auto) Urine Creatinine Salicylates Acetaminophen 11/07/18 11/07/18 11/07/18 13:27 15:10 16:38 WBC RBC Hgb 10.2 L Hct 31.2 L Plt Count Lymph % (Auto) Ward % (Auto) Lymph # Seg Neutrophils % Seg Neuts % (Manual) Lymphocytes % (Manual) Seg Neutrophils # Seg Neutrophils # Man Lymphocytes # (Manual) PT INR POC ABG pCO2 VBG pH Sodium Potassium Chloride Carbon Dioxide BUN Creatinine Glucose POC Glucose 281 H 284 H Lactic Acid Calcium Ionized Calcium Phosphorus Magnesium AST Total Creatine Kinase C-Reactive Protein Total Protein Albumin TSH Free T4 PTH Intact Urine WBC (Auto) Urine Creatinine Salicylates Acetaminophen 11/07/18 11/07/18 11/08/18 21:08 21:41 01:24 WBC RBC Hgb 10.2 L Hct 30.8 L Plt Count Lymph % (Auto) Ward % (Auto) Lymph # Seg Neutrophils % Seg Neuts % (Manual) Lymphocytes % (Manual) Seg Neutrophils # Seg Neutrophils # Man Lymphocytes # (Manual) PT INR POC ABG pCO2 VBG pH Sodium Potassium Chloride Carbon Dioxide BUN Creatinine Glucose POC Glucose 349 H 363 H Lactic Acid Calcium Ionized Calcium Phosphorus Magnesium AST Total Creatine Kinase C-Reactive Protein Total Protein Albumin TSH Free T4 PTH Intact Urine WBC (Auto) Urine Creatinine Salicylates Acetaminophen 11/08/18 11/08/18 11/08/18 04:30 04:30 04:30 WBC RBC 3.26 L Hgb 10.2 L Hct 29.9 L Plt Count 103 L Lymph % (Auto) 7.7 L Ward % (Auto) 7.5 H Lymph # 0.8 L Seg Neutrophils % 83.6 H Seg Neuts % (Manual) Lymphocytes % (Manual) Seg Neutrophils # 8.6 H Seg Neutrophils # Man Lymphocytes # (Manual) PT INR POC ABG pCO2 VBG pH Sodium 157 H Potassium 3.5 L Chloride 119.8 H Carbon Dioxide BUN 52 H Creatinine 1.9 H Glucose 244 H POC Glucose Lactic Acid Calcium 7.3 L Ionized Calcium Phosphorus Magnesium AST 88 H Total Creatine Kinase 1829 H C-Reactive Protein Total Protein 4.4 L D Albumin 2.3 L TSH Free T4 PTH Intact Urine WBC (Auto) Urine Creatinine Salicylates Acetaminophen 11/08/18 11/08/18 11/08/18 05:34 09:12 14:20 WBC RBC Hgb Hct Plt Count Lymph % (Auto) Ward % (Auto) Lymph # Seg Neutrophils % Seg Neuts % (Manual) Lymphocytes % (Manual) Seg Neutrophils # Seg Neutrophils # Man Lymphocytes # (Manual) PT INR POC ABG pCO2 VBG pH Sodium Potassium Chloride Carbon Dioxide BUN Creatinine Glucose POC Glucose 250 H 299 H 379 H Lactic Acid Calcium Ionized Calcium Phosphorus Magnesium AST Total Creatine Kinase C-Reactive Protein Total Protein Albumin TSH Free T4 PTH Intact Urine WBC (Auto) Urine Creatinine Salicylates Acetaminophen 11/08/18 11/08/18 11/08/18 14:40 17:14 21:59 WBC RBC Hgb 10.2 L Hct 30.8 L Plt Count Lymph % (Auto) Ward % (Auto) Lymph # Seg Neutrophils % Seg Neuts % (Manual) Lymphocytes % (Manual) Seg Neutrophils # Seg Neutrophils # Man Lymphocytes # (Manual) PT INR POC ABG pCO2 VBG pH Sodium Potassium Chloride Carbon Dioxide BUN Creatinine Glucose POC Glucose 356 H 385 H Lactic Acid Calcium Ionized Calcium Phosphorus Magnesium AST Total Creatine Kinase C-Reactive Protein Total Protein Albumin TSH Free T4 PTH Intact Urine WBC (Auto) Urine Creatinine Salicylates Acetaminophen 11/09/18 11/09/18 11/09/18 00:57 04:33 04:33 WBC RBC 3.20 L Hgb 9.7 L Hct 29.3 L Plt Count 117 L Lymph % (Auto) 8.2 L Ward % (Auto) 7.4 H Lymph # 0.8 L Seg Neutrophils % 83.2 H Seg Neuts % (Manual) Lymphocytes % (Manual) Seg Neutrophils # Seg Neutrophils # Man Lymphocytes # (Manual) PT INR POC ABG pCO2 VBG pH Sodium 148 H D Potassium Chloride 113.2 H Carbon Dioxide BUN 37 H Creatinine Glucose 252 H POC Glucose 362 H Lactic Acid Calcium 7.8 L Ionized Calcium Phosphorus 1.90 L Magnesium AST 52 H Total Creatine Kinase C-Reactive Protein Total Protein 5.3 L D Albumin 1.6 L TSH Free T4 PTH Intact Urine WBC (Auto) Urine Creatinine Salicylates Acetaminophen 11/09/18 11/09/18 11/09/18 05:24 09:15 13:12 WBC RBC Hgb Hct Plt Count Lymph % (Auto) Ward % (Auto) Lymph # Seg Neutrophils % Seg Neuts % (Manual) Lymphocytes % (Manual) Seg Neutrophils # Seg Neutrophils # Man Lymphocytes # (Manual) PT INR POC ABG pCO2 VBG pH Sodium Potassium Chloride Carbon Dioxide BUN Creatinine Glucose POC Glucose 304 H 297 H 300 H Lactic Acid Calcium Ionized Calcium Phosphorus Magnesium AST Total Creatine Kinase C-Reactive Protein Total Protein Albumin TSH Free T4 PTH Intact Urine WBC (Auto) Urine Creatinine Salicylates Acetaminophen 11/09/18 11/09/1819 17:35 21:09 00:55 WBC RBC Hgb Hct Plt Count Lymph % (Auto) Ward % (Auto) Lymph # Seg Neutrophils % Seg Neuts % (Manual) Lymphocytes % (Manual) Seg Neutrophils # Seg Neutrophils # Man Lymphocytes # (Manual) PT INR POC ABG pCO2 VBG pH Sodium Potassium Chloride Carbon Dioxide BUN Creatinine Glucose POC Glucose 262 H 213 H 283 H Lactic Acid Calcium Ionized Calcium Phosphorus Magnesium AST Total Creatine Kinase C-Reactive Protein Total Protein Albumin TSH Free T4 PTH Intact Urine WBC (Auto) Urine Creatinine Salicylates Acetaminophen 11/10/18 11/10/18 11/10/18 04:46 04:46 04:46 WBC RBC 3.17 L Hgb 9.6 L Hct 28.7 L Plt Count Lymph % (Auto) 10.3 L Ward % (Auto) 10.0 H Lymph # 0.8 L Seg Neutrophils % 78.6 H Seg Neuts % (Manual) Lymphocytes % (Manual) Seg Neutrophils # Seg Neutrophils # Man Lymphocytes # (Manual) PT INR POC ABG pCO2 VBG pH Sodium 151 H Potassium 3.5 L Chloride 115.1 H Carbon Dioxide BUN 30 H Creatinine Glucose 183 H POC Glucose Lactic Acid Calcium 7.8 L Ionized Calcium Phosphorus Magnesium AST Total Creatine Kinase 408 H C-Reactive Protein Total Protein 5.7 L Albumin 1.8 L TSH Free T4 PTH Intact Urine WBC (Auto) Urine Creatinine Salicylates Acetaminophen 11/10/18 11/10/18 11/10/18 05:12 08:06 11:32 WBC RBC Hgb Hct Plt Count Lymph % (Auto) Ward % (Auto) Lymph # Seg Neutrophils % Seg Neuts % (Manual) Lymphocytes % (Manual) Seg Neutrophils # Seg Neutrophils # Man Lymphocytes # (Manual) PT INR POC ABG pCO2 VBG pH Sodium Potassium Chloride Carbon Dioxide BUN Creatinine Glucose POC Glucose 201 H 195 H 302 H Lactic Acid Calcium Ionized Calcium Phosphorus Magnesium AST Total Creatine Kinase C-Reactive Protein Total Protein Albumin TSH Free T4 PTH Intact Urine WBC (Auto) Urine Creatinine Salicylates Acetaminophen 11/10/18 15:55 WBC RBC Hgb Hct Plt Count Lymph % (Auto) Ward % (Auto) Lymph # Seg Neutrophils % Seg Neuts % (Manual) Lymphocytes % (Manual) Seg Neutrophils # Seg Neutrophils # Man Lymphocytes # (Manual) PT INR POC ABG pCO2 VBG pH Sodium Potassium Chloride Carbon Dioxide BUN Creatinine Glucose POC Glucose 292 H Lactic Acid Calcium Ionized Calcium Phosphorus Magnesium AST Total Creatine Kinase C-Reactive Protein Total Protein Albumin TSH Free T4 PTH Intact Urine WBC (Auto) Urine Creatinine Salicylates Acetaminophen
[2018-11-10] MEDS: LANTUS SUB-Q SCH (22:33)
[2018-11-11] MEDS: TYLENOL FEEDTUBE PRN ×3 (00:21→17:58)
[2018-11-11] MEDS: HumaLOG SUB-Q SCH ×6 (02:05→21:15)
[2018-11-11 05:07] LABS: Hematocrit 28.2 % (35.5-45.6); Hemoglobin 9.5 gm/dl (11.8-15.2); Mean Corpuscular HGB Conc 34 % (32-34); Mean Corpuscular Volume 90 fl (84-94); Platelet Count 255 K/mm3 (140-440); Red Blood Count 3.13 M/mm3 (3.65-5.03); Red Cell Distribution Width 13.8 % (13.2-15.2)
[2018-11-11 05:31] LABS: Alanine Aminotransferase 28 units/L (7-56); Albumin 1.6 g/dL (3.9-5); BUN/Creatinine Ratio 28; Blood Urea Nitrogen 28 mg/dL (9-20); Calcium 7.9 mg/dL (8.4-10.2); Hemolysis Index 3
[2018-11-11 06:28] LABS: Total Cells Counted 100
[2018-11-11 06:32] LABS: Anisocytosis Few; Platelet Estimate Consistent w Auto; Poikilocytosis Rare; Stomatocytes Rare
[2018-11-11] MEDS: FLOMAX PO SCH (09:30)
[2018-11-11] MEDS: SODIUM CHLORIDE FLUSH SYRINGE 10 ML IV SCH ×2 (09:32→22:01)
[2018-11-11] MEDS: LEVAQUIN PO SCH (09:32)
[2018-11-11] MEDS: HEPARIN SUB-Q SCH ×2 (09:32→22:01)
[2018-11-11] MEDS: PREVACID SOLUTAB FEEDTUBE SCH ×2 (09:32→22:00)
[2018-11-11] MEDS: D5W 1,000 ML IV SCH (12:54)
--- NOTE | 2018-11-11 13:39 | Progress Note ---
Assessment and Plan 1. Acute kidney injury: Vasomotor JAVY in the setting of volume depletion and DKA. Renal US was negative for hydro. Continue IV fluids. Renal function is improving. Monitor renal function. Renal prognosis is guarded. Avoid nephrotoxic agents. Meds dosage based on GFR. 2. FEN: Hyperkalemia, improved. Hypernatremia, continue IV D5W and water flushes. Metabolic acidosis, improved. Monitor lytes. 3. DKA: Improved. 4. Hyperglycemia. 5. Sepsis: ?UTI. On Levofloxacin. 6. Metabolic Encephalopathy: Improving. Subjective Date of service: 11/11/18 Principal diagnosis: Ac hypoxemic resp failure; Severe sepsis; DKA; JAVY; Ac encephalopathy; UTI Interval history: Patient was seen and examined at the bedside. Objective - Vital Signs Vital signs: Vital Signs - 12hr 11/11/18 11/11/18 11/11/18 02:01 02:31 03:01 Temperature Pulse Rate 91 H 97 H 90 Pulse Rate [ From Monitor] Pulse Rate [ Right Dorsalis Pedis] Respiratory 19 26 H 34 H Rate Blood Pressure 109/61 109/61 109/61 O2 Sat by Pulse 96 90 93 Oximetry 11/11/18 11/11/18 11/11/18 03:03 03:31 04:00 Temperature 99 F Pulse Rate 89 90 Pulse Rate [ 90 From Monitor] Pulse Rate [ 93 H Right Dorsalis Pedis] Respiratory 18 Rate Blood Pressure 109/61 O2 Sat by Pulse 94 96 Oximetry 11/11/18 11/11/18 11/11/18 04:01 04:31 05:01 Temperature Pulse Rate 91 H 85 86 Pulse Rate [ From Monitor] Pulse Rate [ Right Dorsalis Pedis] Respiratory Rate Blood Pressure 109/61 109/61 109/61 O2 Sat by Pulse 96 96 95 Oximetry 11/11/18 11/11/18 11/11/18 05:31 06:01 06:31 Temperature Pulse Rate 91 H 92 H 92 H Pulse Rate [ From Monitor] Pulse Rate [ Right Dorsalis Pedis] Respiratory Rate Blood Pressure 109/61 109/61 109/61 O2 Sat by Pulse 95 94 94 Oximetry 11/11/18 11/11/18 11/11/18 07:01 07:31 08:00 Temperature Pulse Rate 88 94 H 88 Pulse Rate [ From Monitor] Pulse Rate [ Right Dorsalis Pedis] Respiratory Rate Blood Pressure 109/61 109/61 109/61 O2 Sat by Pulse 96 95 96 Oximetry - General Appearance General appearance: well-developed, appears stated age, other (no distress, NG tube noted) EENT: ATNC, PERRL Neck: supple Respiratory: Present: Clear to Ascultation Cardiology: regular, S1S2, no murmurs Gastrointestinal: normoactive bowel sounds, no tenderness, no distended Integumentary: no rash, warm and dry Neurologic: no focal deficit, no asterixis, alert and oriented x3 Musculoskeletal: other (no edema) - Lab 11/11/18 04:42 11/11/18 04:42 Most recent lab results Calcium 7.9 mg/dL (8.4-10.2) L 11/11/18 04:42 Phosphorus 3.10 mg/dL (2.5-4.5) D 11/10/18 04:46 Magnesium 2.50 mg/dL (1.7-2.3) H 11/07/18 04:13 58.1 mg/dL (0.1-20.0) H 11/04/18 20:55 34 mmol/L 11/04/18 20:55 Medications & Allergies - Medications Allergies/Adverse Reactions: Allergies No Known Allergies Allergy (Unverified 11/04/18 15:22) Home Medications: Home Medications Medication Instructions Recorded Confirmed Last Taken Type Glimepiride 4 mg PO BID 11/06/18 11/06/18 Unknown History HYDROcodone/ACETAMINOPHEN 5 - 325 mg PO Q4-6H PRN 11/06/18 11/06/18 Unknown History Ibuprofen 800 mg PO Q8HR PRN 11/06/18 11/06/18 Unknown History Lisinopril 2.5 mg PO DAILY 11/06/18 11/06/18 Unknown History Metformin HCl 1,000 mg PO BID 11/06/18 11/06/18 Unknown History NovoLIN N 5 unit SUB-Q BID MDD x 90days 11/06/18 11/06/18 Unknown History Pravastatin Sodium 20 mg PO BID 11/06/18 11/06/18 Unknown History glipiZIDE 10 mg PO BID 11/06/18 11/06/18 Unknown History Active Medications: Generic Name Dose Route Start Last Admin Trade Name Freq PRN Reason Stop Dose Admin Acetaminophen 650 mg 11/09/18 04:21 11/11/18 09:33 Tylenol FEEDTUBE 650 mg Q4H PRN Administration Fever >101 Albuterol 2.5 mg 11/04/18 17:42 Proventil IH Q3H PRN Shortness Of Breath Lipase/Protease/Amylase 1 each 11/06/18 15:57 Pancresue Delacruz 10,500 Unit FEEDTUBE PRN PRN For Clogged Feeding Tube Dextrose 0 ml 11/04/18 15:40 D50w (25gm) Syringe IV PRN PRN Hypoglycemia Heparin Sodium (Porcine) 5,000 unit 11/04/18 22:00 11/11/18 09:32 Heparin SUB-Q 5,000 unit Q12HR MARIEL Administration Dextrose 1,000 mls @ 75 mls/hr 11/07/18 15:00 11/11/18 12:54 D5w IV 150 mls/hr DIRECT MARIEL Administration Insulin Glargine 35 units 11/08/18 22:00 11/10/18 22:33 Lantus SUB-Q 35 units QHS MARIEL Administration Insulin Human Lispro 0 unit 11/05/18 17:00 11/11/18 13:35 Humalog SUB-Q 6 unit Q4H MARIEL Administration Protocol Lansoprazole 30 mg 11/08/18 10:00 11/11/18 09:32 Prevacid Solutab FEEDTUBE 30 mg BID MARIEL Administration Levofloxacin 750 mg 11/10/18 10:00 11/11/18 09:32 Levaquin PO 750 mg Q24HR MARIEL Administration Simple Syrup 15 ml 11/06/18 15:57 Simple Syrup FEEDTUBE PRN PRN Hypoglycemia Simple Syrup 30 ml 11/06/18 15:57 Simple Syrup FEEDTUBE PRN PRN Hypoglycemia Sodium Bicarbonate 325 mg 11/06/18 15:57 Sodium Bicarbonate FEEDTUBE PRN PRN For Clogged Feeding Tube Sodium Chloride 10 ml 11/04/18 22:00 11/11/18 09:32 Sodium Chloride Flush Syringe 10 Ml IV 10 ml BID MARIEL Administration Sodium Chloride 10 ml 11/04/18 17:42 Sodium Chloride Flush Syringe 10 Ml IV PRN PRN LINE FLUSH Tamsulosin HCl 0.4 mg 11/07/18 13:00 11/11/18 09:30 Flomax PO 0.4 mg QDAY MARIEL Administration
[2018-11-11] MEDS ORDERED: POTASSIUM CHLORIDE FEEDTUBE ONE ×2 (14:04→18:00)
--- NOTE | 2018-11-11 14:08 | Progress Note ---
Assessment and Plan Patient alert, awake. Resting on room air. O2 saturation 96% on room air. No complaint of chest pain, shortness of breath or cough. - Patient Problems (1) ARF (acute renal failure) Current Visit: Yes Status: Acute Plan to address problem: Management as per nephrology. (2) Acidosis Current Visit: Yes Status: Acute Plan to address problem: Improved. (3) DKA (diabetic ketoacidoses) Current Visit: Yes Status: Acute Plan to address problem: Improved. Management as per primary care. (4) Hypothyroidism Current Visit: Yes Status: Acute Qualifiers: Hypothyroidism type: unspecified Qualified Code(s): E03.9 - Hypothyroidism, unspecified Plan to address problem: Management as per primary care. Subjective Date of service: 11/11/18 Principal diagnosis: Ac hypoxemic resp failure; Severe sepsis; DKA; JAVY; Ac encephalopathy; UTI Interval history: Patient alert, awake. Resting on room air. O2 saturation 96% on room air. No complaint of chest pain, shortness of breath or cough. Objective Vital Signs - 12hr 11/11/18 11/11/18 11/11/18 02:31 03:01 03:03 Temperature 99 F Pulse Rate 97 H 90 Pulse Rate [ From Monitor] Pulse Rate [ Right Dorsalis Pedis] Respiratory 26 H 34 H Rate Blood Pressure 109/61 109/61 O2 Sat by Pulse 90 93 Oximetry 11/11/18 11/11/18 11/11/18 03:31 04:00 04:01 Temperature Pulse Rate 89 90 91 H Pulse Rate [ 90 From Monitor] Pulse Rate [ 93 H Right Dorsalis Pedis] Respiratory 18 Rate Blood Pressure 109/61 109/61 O2 Sat by Pulse 94 96 96 Oximetry 11/11/18 11/11/18 11/11/18 04:31 05:01 05:31 Temperature Pulse Rate 85 86 91 H Pulse Rate [ From Monitor] Pulse Rate [ Right Dorsalis Pedis] Respiratory Rate Blood Pressure 109/61 109/61 109/61 O2 Sat by Pulse 96 95 95 Oximetry 11/11/18 11/11/18 11/11/18 06:01 06:31 07:01 Temperature Pulse Rate 92 H 92 H 88 Pulse Rate [ From Monitor] Pulse Rate [ Right Dorsalis Pedis] Respiratory Rate Blood Pressure 109/61 109/61 109/61 O2 Sat by Pulse 94 94 96 Oximetry 11/11/18 11/11/18 07:31 08:00 Temperature Pulse Rate 94 H 88 Pulse Rate [ From Monitor] Pulse Rate [ Right Dorsalis Pedis] Respiratory Rate Blood Pressure 109/61 109/61 O2 Sat by Pulse 95 96 Oximetry Constitutional: no acute distress, alert Eyes: non-icteric Neck: supple, no lymphadenopathy Ascultation: Bilateral: clear Cardiovascular: regular rate and rhythm Gastrointestinal: normoactive bowel sounds Integumentary: normal Extremities: no cyanosis, no edema Neurologic: normal mental status, non-focal exam, pupils equal and round, CN II- XII normal Psychiatric: depressed CBC and BMP: 11/11/18 04:42 11/11/18 04:42 ABG, PT/INR, D-dimer: ABG POC ABG pH 7.432 (7.35-7.45) 11/05/18 17:08 POC ABG pCO2 32.3 (35-45) L 11/05/18 17:08 POC ABG HCO3 21.5 (22-26 mml/L) 11/05/18 17:08 POC ABG Total CO2 23 (23-27mmol/L) 11/05/18 17:08 POC ABG O2 Sat 85 11/05/18 17:08 PT/INR, D-dimer PT 15.6 Sec. (12.2-14.9) H 11/04/18 16:05 INR 1.27 (0.87-1.13) H 11/04/18 16:05 Abnormal lab findings: Abnormal Labs 11/04/18 11/04/18 11/04/18 15:23 15:35 16:05 WBC 12.6 H RBC Hgb Hct Plt Count Lymph % (Auto) [place] % (Auto) Lymph # Seg Neutrophils % Seg Neuts % (Manual) 84.0 H Lymphocytes % (Manual) 1.0 L Seg Neutrophils # Seg Neutrophils # Man 10.6 H Lymphocytes # (Manual) 0.1 L PT INR POC ABG pCO2 VBG pH Sodium Potassium Chloride Carbon Dioxide BUN Creatinine Glucose POC Glucose > 500 H Lactic Acid Calcium Ionized Calcium Phosphorus Magnesium AST Total Creatine Kinase C-Reactive Protein Total Protein Albumin TSH Free T4 PTH Intact Urine WBC (Auto) 12.0 H Urine Creatinine Salicylates Acetaminophen 07/27/19 07/27/19 07/27/19 16:05 16:05 16:05 WBC RBC Hgb Hct Plt Count Lymph % (Auto) [place] % (Auto) Lymph # Seg Neutrophils % Seg Neuts % (Manual) Lymphocytes % (Manual) Seg Neutrophils # Seg Neutrophils # Man Lymphocytes # (Manual) PT 15.6 H INR 1.27 H POC ABG pCO2 VBG pH Sodium 153 H Potassium 6.2 H* Chloride Carbon Dioxide 18 L BUN 200 H Creatinine 6.8 H Glucose 1088 H* POC Glucose Lactic Acid 2.80 H* Calcium 7.2 L Ionized Calcium Phosphorus Magnesium AST Total Creatine Kinase C-Reactive Protein Total Protein Albumin 3.1 L TSH Free T4 PTH Intact Urine WBC (Auto) Urine Creatinine Salicylates Acetaminophen 11/04/18 11/04/18 11/04/18 16:05 16:05 16:05 WBC RBC Hgb Hct Plt Count Lymph % (Auto) [place] % (Auto) Lymph # Seg Neutrophils % Seg Neuts % (Manual) Lymphocytes % (Manual) Seg Neutrophils # Seg Neutrophils # Man Lymphocytes # (Manual) PT INR POC ABG pCO2 VBG pH 7.245 L Sodium Potassium Chloride Carbon Dioxide BUN Creatinine Glucose POC Glucose Lactic Acid Calcium Ionized Calcium Phosphorus 13.80 H Magnesium 3.60 H AST Total Creatine Kinase C-Reactive Protein Total Protein Albumin TSH 0.169 L Free T4 0.68 L PTH Intact Urine WBC (Auto) Urine Creatinine Salicylates Acetaminophen 11/04/18 11/04/18 11/04/18 16:05 16:48 19:40 WBC RBC Hgb Hct Plt Count Lymph % (Auto) [place] % (Auto) Lymph # Seg Neutrophils % Seg Neuts % (Manual) Lymphocytes % (Manual) Seg Neutrophils # Seg Neutrophils # Man Lymphocytes # (Manual) PT INR POC ABG pCO2 VBG pH Sodium Potassium Chloride Carbon Dioxide BUN Creatinine Glucose POC Glucose > 500 H 458 H Lactic Acid Calcium Ionized Calcium Phosphorus Magnesium AST Total Creatine Kinase 1857 H C-Reactive Protein Total Protein Albumin TSH Free T4 PTH Intact Urine WBC (Auto) Urine Creatinine Salicylates Acetaminophen 11/04/18 11/04/18 11/04/18 20:29 20:29 20:29 WBC RBC Hgb Hct Plt Count Lymph % (Auto) [place] % (Auto) Lymph # Seg Neutrophils % Seg Neuts % (Manual) Lymphocytes % (Manual) Seg Neutrophils # Seg Neutrophils # Man Lymphocytes # (Manual) PT INR POC ABG pCO2 VBG pH Sodium 163 H* D Potassium Chloride 121.4 H Carbon Dioxide 21 L BUN 166 H Creatinine 5.6 H Glucose 513 H* POC Glucose Lactic Acid 3.30 H* 3.30 H* Calcium 6.4 L Ionized Calcium Phosphorus Magnesium AST Total Creatine Kinase C-Reactive Protein Total Protein Albumin TSH Free T4 PTH Intact Urine WBC (Auto) Urine Creatinine Salicylates Acetaminophen 11/04/18 11/04/18 11/04/18 20:55 21:03 22:00 WBC RBC Hgb Hct Plt Count Lymph % (Auto) [place] % (Auto) Lymph # Seg Neutrophils % Seg Neuts % (Manual) Lymphocytes % (Manual) Seg Neutrophils # Seg Neutrophils # Man Lymphocytes # (Manual) PT INR POC ABG pCO2 VBG pH Sodium Potassium Chloride Carbon Dioxide BUN Creatinine Glucose POC Glucose 496 H Lactic Acid 3.60 H* Calcium Ionized Calcium Phosphorus Magnesium AST Total Creatine Kinase C-Reactive Protein Total Protein Albumin TSH Free T4 PTH Intact Urine WBC (Auto) Urine Creatinine 58.1 H Salicylates Acetaminophen 11/04/18 11/04/18 11/04/18 22:04 23:07 23:47 WBC RBC Hgb Hct Plt Count Lymph % (Auto) [place] % (Auto) Lymph # Seg Neutrophils % Seg Neuts % (Manual) Lymphocytes % (Manual) Seg Neutrophils # Seg Neutrophils # Man Lymphocytes # (Manual) PT INR POC ABG pCO2 VBG pH Sodium 170 H* Potassium Chloride 127.1 H Carbon Dioxide BUN 164 H Creatinine 5.2 H Glucose 213 H POC Glucose 357 H 306 H Lactic Acid Calcium 6.5 L Ionized Calcium Phosphorus Magnesium AST Total Creatine Kinase C-Reactive Protein Total Protein Albumin TSH Free T4 PTH Intact Urine WBC (Auto) Urine Creatinine Salicylates Acetaminophen 11/04/18 11/05/18 11/05/18 23:47 00:04 00:09 WBC RBC Hgb Hct Plt Count Lymph % (Auto) [place] % (Auto) Lymph # Seg Neutrophils % Seg Neuts % (Manual) Lymphocytes % (Manual) Seg Neutrophils # Seg Neutrophils # Man Lymphocytes # (Manual) PT INR POC ABG pCO2 VBG pH Sodium 163 H* Potassium Chloride 127.5 H Carbon Dioxide BUN 117 H Creatinine 3.3 H Glucose 235 H POC Glucose 219 H Lactic Acid 3.20 H* Calcium 6.8 L Ionized Calcium Phosphorus Magnesium AST Total Creatine Kinase C-Reactive Protein Total Protein Albumin TSH Free T4 PTH Intact Urine WBC (Auto) Urine Creatinine Salicylates Acetaminophen 11/05/18 11/05/18 11/05/18 00:59 03:13 03:52 WBC RBC Hgb Hct Plt Count Lymph % (Auto) [place] % (Auto) Lymph # Seg Neutrophils % Seg Neuts % (Manual) Lymphocytes % (Manual) Seg Neutrophils # Seg Neutrophils # Man Lymphocytes # (Manual) PT INR POC ABG pCO2 VBG pH Sodium Potassium Chloride Carbon Dioxide BUN Creatinine Glucose POC Glucose 204 H 124 H Lactic Acid Calcium Ionized Calcium Phosphorus Magnesium AST Total Creatine Kinase 1680 H C-Reactive Protein Total Protein Albumin TSH Free T4 PTH Intact Urine WBC (Auto) Urine Creatinine Salicylates Acetaminophen 11/05/18 11/05/18 11/05/18 03:52 04:25 05:11 WBC RBC Hgb Hct Plt Count Lymph % (Auto) [place] % (Auto) Lymph # Seg Neutrophils % Seg Neuts % (Manual) Lymphocytes % (Manual) Seg Neutrophils # Seg Neutrophils # Man Lymphocytes # (Manual) PT INR POC ABG pCO2 VBG pH Sodium 169 H* Potassium Chloride 126.2 H Carbon Dioxide BUN 156 H Creatinine 4.7 H Glucose 128 H POC Glucose 150 H 173 H Lactic Acid Calcium 6.3 L Ionized Calcium Phosphorus Magnesium AST Total Creatine Kinase C-Reactive Protein Total Protein Albumin TSH Free T4 PTH Intact Urine WBC (Auto) Urine Creatinine Salicylates Acetaminophen 11/05/18 11/05/18 11/05/18 06:05 06:58 07:48 WBC RBC Hgb Hct Plt Count Lymph % (Auto) [place] % (Auto) Lymph # Seg Neutrophils % Seg Neuts % (Manual) Lymphocytes % (Manual) Seg Neutrophils # Seg Neutrophils # Man Lymphocytes # (Manual) PT INR POC ABG pCO2 VBG pH Sodium Potassium Chloride Carbon Dioxide BUN Creatinine Glucose POC Glucose 136 H 152 H 177 H Lactic Acid Calcium Ionized Calcium Phosphorus Magnesium AST Total Creatine Kinase C-Reactive Protein Total Protein Albumin TSH Free T4 PTH Intact Urine WBC (Auto) Urine Creatinine Salicylates Acetaminophen 11/05/18 11/05/18 11/05/18 08:21 08:21 08:23 WBC RBC Hgb Hct Plt Count Lymph % (Auto) [place] % (Auto) Lymph # Seg Neutrophils % Seg Neuts % (Manual) Lymphocytes % (Manual) Seg Neutrophils # Seg Neutrophils # Man Lymphocytes # (Manual) PT INR POC ABG pCO2 VBG pH Sodium 171 H* Potassium Chloride 128.9 H Carbon Dioxide BUN 149 H Creatinine 4.5 H Glucose 159 H POC Glucose 157 H Lactic Acid Calcium 6.7 L Ionized Calcium Phosphorus Magnesium AST Total Creatine Kinase C-Reactive Protein Total Protein Albumin TSH Free T4 PTH Intact 119.3 H Urine WBC (Auto) Urine Creatinine Salicylates Acetaminophen 11/05/18 11/05/18 11/05/18 10:21 11:12 12:37 WBC RBC Hgb Hct Plt Count Lymph % (Auto) [place] % (Auto) Lymph # Seg Neutrophils % Seg Neuts % (Manual) Lymphocytes % (Manual) Seg Neutrophils # Seg Neutrophils # Man Lymphocytes # (Manual) PT INR POC ABG pCO2 VBG pH Sodium Potassium Chloride Carbon Dioxide BUN Creatinine Glucose POC Glucose 171 H 155 H 145 H Lactic Acid Calcium Ionized Calcium Phosphorus Magnesium AST Total Creatine Kinase C-Reactive Protein Total Protein Albumin TSH Free T4 PTH Intact Urine WBC (Auto) Urine Creatinine Salicylates Acetaminophen 11/05/18 11/05/18 11/05/18 13:24 13:47 14:42 WBC RBC Hgb Hct Plt Count Lymph % (Auto) [place] % (Auto) Lymph # Seg Neutrophils % Seg Neuts % (Manual) Lymphocytes % (Manual) Seg Neutrophils # Seg Neutrophils # Man Lymphocytes # (Manual) PT INR POC ABG pCO2 VBG pH Sodium 167 H* Potassium Chloride 131.6 H Carbon Dioxide BUN 130 H Creatinine 3.8 H Glucose 136 H POC Glucose 137 H 133 H Lactic Acid Calcium 6.4 L Ionized Calcium Phosphorus Magnesium AST Total Creatine Kinase C-Reactive Protein Total Protein Albumin TSH Free T4 PTH Intact Urine WBC (Auto) Urine Creatinine Salicylates Acetaminophen 11/05/18 11/05/18 11/05/18 16:55 17:08 18:14 WBC RBC Hgb Hct Plt Count Lymph % (Auto) [place] % (Auto) Lymph # Seg Neutrophils % Seg Neuts % (Manual) Lymphocytes % (Manual) Seg Neutrophils # Seg Neutrophils # Man Lymphocytes # (Manual) PT INR POC ABG pCO2 32.3 L VBG pH Sodium Potassium Chloride Carbon Dioxide BUN Creatinine Glucose POC Glucose 194 H 195 H Lactic Acid Calcium Ionized Calcium Phosphorus Magnesium AST Total Creatine Kinase C-Reactive Protein Total Protein Albumin TSH Free T4 PTH Intact Urine WBC (Auto) Urine Creatinine Salicylates Acetaminophen 11/05/18 11/05/18 11/05/18 18:35 18:35 18:35 WBC RBC Hgb Hct Plt Count Lymph % (Auto) [place] % (Auto) Lymph # Seg Neutrophils % Seg Neuts % (Manual) Lymphocytes % (Manual) Seg Neutrophils # Seg Neutrophils # Man Lymphocytes # (Manual) PT INR POC ABG pCO2 VBG pH Sodium Potassium Chloride Carbon Dioxide BUN Creatinine Glucose POC Glucose Lactic Acid Calcium Ionized Calcium Phosphorus Magnesium AST Total Creatine Kinase C-Reactive Protein 19.50 H Total Protein Albumin TSH Free T4 PTH Intact Urine WBC (Auto) Urine Creatinine Salicylates < 0.3 L Acetaminophen < 5.0 L 11/05/18 11/06/18 11/06/18 21:09 01:36 04:50 WBC RBC Hgb 11.3 L Hct 32.8 L D Plt Count 110 L Lymph % (Auto) [place] % (Auto) Lymph # Seg Neutrophils % Seg Neuts % (Manual) Lymphocytes % (Manual) Seg Neutrophils # Seg Neutrophils # Man Lymphocytes # (Manual) PT INR POC ABG pCO2 VBG pH Sodium Potassium Chloride Carbon Dioxide BUN Creatinine Glucose POC Glucose 250 H 289 H Lactic Acid Calcium Ionized Calcium Phosphorus Magnesium AST Total Creatine Kinase C-Reactive Protein Total Protein Albumin TSH Free T4 PTH Intact Urine WBC (Auto) Urine Creatinine Salicylates Acetaminophen 11/06/18 11/06/18 11/06/18 04:50 04:50 05:14 WBC RBC Hgb Hct Plt Count Lymph % (Auto) [place] % (Auto) Lymph # Seg Neutrophils % Seg Neuts % (Manual) Lymphocytes % (Manual) Seg Neutrophils # Seg Neutrophils # Man Lymphocytes # (Manual) PT INR POC ABG pCO2 VBG pH Sodium 165 H* 164 H* Potassium Chloride 127.4 H Carbon Dioxide BUN 113 H Creatinine 3.2 H Glucose 208 H POC Glucose 215 H Lactic Acid Calcium 6.8 L Ionized Calcium Phosphorus Magnesium AST 55 H Total Creatine Kinase C-Reactive Protein Total Protein 5.2 L D Albumin 2.3 L TSH Free T4 PTH Intact Urine WBC (Auto) Urine Creatinine Salicylates Acetaminophen 11/06/18 11/06/18 11/06/18 07:50 08:50 12:16 WBC RBC Hgb Hct Plt Count Lymph % (Auto) [place] % (Auto) Lymph # Seg Neutrophils % Seg Neuts % (Manual) Lymphocytes % (Manual) Seg Neutrophils # Seg Neutrophils # Man Lymphocytes # (Manual) PT INR POC ABG pCO2 VBG pH Sodium 161 H* Potassium Chloride 126.0 H Carbon Dioxide BUN 111 H Creatinine 3.0 H Glucose 187 H POC Glucose 239 H 198 H Lactic Acid Calcium 7.0 L Ionized Calcium Phosphorus Magnesium AST Total Creatine Kinase C-Reactive Protein Total Protein Albumin TSH Free T4 PTH Intact Urine WBC (Auto) Urine Creatinine Salicylates Acetaminophen 11/06/18 11/06/18 11/06/18 15:42 15:42 17:59 WBC RBC Hgb Hct Plt Count Lymph % (Auto) [place] % (Auto) Lymph # Seg Neutrophils % Seg Neuts % (Manual) Lymphocytes % (Manual) Seg Neutrophils # Seg Neutrophils # Man Lymphocytes # (Manual) PT INR POC ABG pCO2 VBG pH Sodium 162 H* Potassium Chloride 127.3 H Carbon Dioxide BUN 98 H Creatinine 2.7 H Glucose 195 H POC Glucose 225 H Lactic Acid Calcium 7.1 L Ionized Calcium 4.4 L Phosphorus Magnesium AST Total Creatine Kinase C-Reactive Protein Total Protein Albumin TSH Free T4 PTH Intact Urine WBC (Auto) Urine Creatinine Salicylates Acetaminophen 11/06/18 11/06/18 11/06/18 21:21 21:24 21:24 WBC RBC Hgb 11.0 L Hct 33.4 L Plt Count Lymph % (Auto) [place] % (Auto) Lymph # Seg Neutrophils % Seg Neuts % (Manual) Lymphocytes % (Manual) Seg Neutrophils # Seg Neutrophils # Man Lymphocytes # (Manual) PT INR POC ABG pCO2 VBG pH Sodium Potassium Chloride Carbon Dioxide BUN Creatinine Glucose POC Glucose 272 H Lactic Acid Calcium Ionized Calcium Phosphorus Magnesium AST Total Creatine Kinase 3538 H C-Reactive Protein Total Protein Albumin TSH Free T4 PTH Intact Urine WBC (Auto) Urine Creatinine Salicylates Acetaminophen 11/07/18 11/07/18 11/07/18 02:01 04:13 04:13 WBC RBC Hgb 11.4 L Hct 33.8 L Plt Count 103 L Lymph % (Auto) [place] % (Auto) Lymph # Seg Neutrophils % Seg Neuts % (Manual) 83.0 H Lymphocytes % (Manual) 6.0 L Seg Neutrophils # Seg Neutrophils # Man Lymphocytes # (Manual) 0.6 L PT INR POC ABG pCO2 VBG pH Sodium 161 H* Potassium Chloride 125.8 H Carbon Dioxide BUN 80 H Creatinine 2.4 H Glucose 246 H POC Glucose 282 H Lactic Acid Calcium 7.4 L Ionized Calcium Phosphorus Magnesium 2.50 H AST 106 H Total Creatine Kinase C-Reactive Protein Total Protein 5.7 L Albumin 2.0 L TSH Free T4 PTH Intact Urine WBC (Auto) Urine Creatinine Salicylates Acetaminophen 11/07/18 11/07/18 11/07/18 04:13 05:17 09:15 WBC RBC Hgb Hct Plt Count Lymph % (Auto) [place] % (Auto) Lymph # Seg Neutrophils % Seg Neuts % (Manual) Lymphocytes % (Manual) Seg Neutrophils # Seg Neutrophils # Man Lymphocytes # (Manual) PT INR POC ABG pCO2 VBG pH Sodium Potassium Chloride Carbon Dioxide BUN Creatinine Glucose POC Glucose 256 H 287 H Lactic Acid Calcium Ionized Calcium Phosphorus Magnesium AST Total Creatine Kinase 2918 H C-Reactive Protein Total Protein Albumin TSH Free T4 PTH Intact Urine WBC (Auto) Urine Creatinine Salicylates Acetaminophen 11/07/18 11/07/18 11/07/18 13:27 15:10 16:38 WBC RBC Hgb 10.2 L Hct 31.2 L Plt Count Lymph % (Auto) [place] % (Auto) Lymph # Seg Neutrophils % Seg Neuts % (Manual) Lymphocytes % (Manual) Seg Neutrophils # Seg Neutrophils # Man Lymphocytes # (Manual) PT INR POC ABG pCO2 VBG pH Sodium Potassium Chloride Carbon Dioxide BUN Creatinine Glucose POC Glucose 281 H 284 H Lactic Acid Calcium Ionized Calcium Phosphorus Magnesium AST Total Creatine Kinase C-Reactive Protein Total Protein Albumin TSH Free T4 PTH Intact Urine WBC (Auto) Urine Creatinine Salicylates Acetaminophen 11/07/18 11/07/18 11/08/18 21:08 21:41 01:24 WBC RBC Hgb 10.2 L Hct 30.8 L Plt Count Lymph % (Auto) [place] % (Auto) Lymph # Seg Neutrophils % Seg Neuts % (Manual) Lymphocytes % (Manual) Seg Neutrophils # Seg Neutrophils # Man Lymphocytes # (Manual) PT INR POC ABG pCO2 VBG pH Sodium Potassium Chloride Carbon Dioxide BUN Creatinine Glucose POC Glucose 349 H 363 H Lactic Acid Calcium Ionized Calcium Phosphorus Magnesium AST Total Creatine Kinase C-Reactive Protein Total Protein Albumin TSH Free T4 PTH Intact Urine WBC (Auto) Urine Creatinine Salicylates Acetaminophen 11/08/18 11/08/18 11/08/18 04:30 04:30 04:30 WBC RBC 3.26 L Hgb 10.2 L Hct 29.9 L Plt Count 103 L Lymph % (Auto) 7.7 L [place] % (Auto) 7.5 H Lymph # 0.8 L Seg Neutrophils % 83.6 H Seg Neuts % (Manual) Lymphocytes % (Manual) Seg Neutrophils # 8.6 H Seg Neutrophils # Man Lymphocytes # (Manual) PT INR POC ABG pCO2 VBG pH Sodium 157 H Potassium 3.5 L Chloride 119.8 H Carbon Dioxide BUN 52 H Creatinine 1.9 H Glucose 244 H POC Glucose Lactic Acid Calcium 7.3 L Ionized Calcium Phosphorus Magnesium AST 88 H Total Creatine Kinase 1829 H C-Reactive Protein Total Protein 4.4 L D Albumin 2.3 L TSH Free T4 PTH Intact Urine WBC (Auto) Urine Creatinine Salicylates Acetaminophen 11/08/18 11/08/18 11/08/18 05:34 09:12 14:20 WBC RBC Hgb Hct Plt Count Lymph % (Auto) [place] % (Auto) Lymph # Seg Neutrophils % Seg Neuts % (Manual) Lymphocytes % (Manual) Seg Neutrophils # Seg Neutrophils # Man Lymphocytes # (Manual) PT INR POC ABG pCO2 VBG pH Sodium Potassium Chloride Carbon Dioxide BUN Creatinine Glucose POC Glucose 250 H 299 H 379 H Lactic Acid Calcium Ionized Calcium Phosphorus Magnesium AST Total Creatine Kinase C-Reactive Protein Total Protein Albumin TSH Free T4 PTH Intact Urine WBC (Auto) Urine Creatinine Salicylates Acetaminophen 11/08/18 11/08/18 11/08/18 14:40 17:14 21:59 WBC RBC Hgb 10.2 L Hct 30.8 L Plt Count Lymph % (Auto) [place] % (Auto) Lymph # Seg Neutrophils % Seg Neuts % (Manual) Lymphocytes % (Manual) Seg Neutrophils # Seg Neutrophils # Man Lymphocytes # (Manual) PT INR POC ABG pCO2 VBG pH Sodium Potassium Chloride Carbon Dioxide BUN Creatinine Glucose POC Glucose 356 H 385 H Lactic Acid Calcium Ionized Calcium Phosphorus Magnesium AST Total Creatine Kinase C-Reactive Protein Total Protein Albumin TSH Free T4 PTH Intact Urine WBC (Auto) Urine Creatinine Salicylates Acetaminophen 11/09/18 11/09/18 11/09/18 00:57 04:33 04:33 WBC RBC 3.20 L Hgb 9.7 L Hct 29.3 L Plt Count 117 L Lymph % (Auto) 8.2 L [place] % (Auto) 7.4 H Lymph # 0.8 L Seg Neutrophils % 83.2 H Seg Neuts % (Manual) Lymphocytes % (Manual) Seg Neutrophils # Seg Neutrophils # Man Lymphocytes # (Manual) PT INR POC ABG pCO2 VBG pH Sodium 148 H D Potassium Chloride 113.2 H Carbon Dioxide BUN 37 H Creatinine Glucose 252 H POC Glucose 362 H Lactic Acid Calcium 7.8 L Ionized Calcium Phosphorus 1.90 L Magnesium AST 52 H Total Creatine Kinase C-Reactive Protein Total Protein 5.3 L D Albumin 1.6 L TSH Free T4 PTH Intact Urine WBC (Auto) Urine Creatinine Salicylates Acetaminophen 11/09/18 11/09/18 11/09/18 05:24 09:15 13:12 WBC RBC Hgb Hct Plt Count Lymph % (Auto) [place] % (Auto) Lymph # Seg Neutrophils % Seg Neuts % (Manual) Lymphocytes % (Manual) Seg Neutrophils # Seg Neutrophils # Man Lymphocytes # (Manual) PT INR POC ABG pCO2 VBG pH Sodium Potassium Chloride Carbon Dioxide BUN Creatinine Glucose POC Glucose 304 H 297 H 300 H Lactic Acid Calcium Ionized Calcium Phosphorus Magnesium AST Total Creatine Kinase C-Reactive Protein Total Protein Albumin TSH Free T4 PTH Intact Urine WBC (Auto) Urine Creatinine Salicylates Acetaminophen 11/09/18 11/09/18 11/10/18 17:35 21:09 00:55 WBC RBC Hgb Hct Plt Count Lymph % (Auto) [place] % (Auto) Lymph # Seg Neutrophils % Seg Neuts % (Manual) Lymphocytes % (Manual) Seg Neutrophils # Seg Neutrophils # Man Lymphocytes # (Manual) PT INR POC ABG pCO2 VBG pH Sodium Potassium Chloride Carbon Dioxide BUN Creatinine Glucose POC Glucose 262 H 213 H 283 H Lactic Acid Calcium Ionized Calcium Phosphorus Magnesium AST Total Creatine Kinase C-Reactive Protein Total Protein Albumin TSH Free T4 PTH Intact Urine WBC (Auto) Urine Creatinine Salicylates Acetaminophen 11/10/18 11/10/18 11/10/18 04:46 04:46 04:46 WBC RBC 3.17 L Hgb 9.6 L Hct 28.7 L Plt Count Lymph % (Auto) 10.3 L [place] % (Auto) 10.0 H Lymph # 0.8 L Seg Neutrophils % 78.6 H Seg Neuts % (Manual) Lymphocytes % (Manual) Seg Neutrophils # Seg Neutrophils # Man Lymphocytes # (Manual) PT INR POC ABG pCO2 VBG pH Sodium 151 H Potassium 3.5 L Chloride 115.1 H Carbon Dioxide BUN 30 H Creatinine Glucose 183 H POC Glucose Lactic Acid Calcium 7.8 L Ionized Calcium Phosphorus Magnesium AST Total Creatine Kinase 408 H C-Reactive Protein Total Protein 5.7 L Albumin 1.8 L TSH Free T4 PTH Intact Urine WBC (Auto) Urine Creatinine Salicylates Acetaminophen 11/10/18 11/10/18 11/10/18 05:12 08:06 11:32 WBC RBC Hgb Hct Plt Count Lymph % (Auto) [place] % (Auto) Lymph # Seg Neutrophils % Seg Neuts % (Manual) Lymphocytes % (Manual) Seg Neutrophils # Seg Neutrophils # Man Lymphocytes # (Manual) PT INR POC ABG pCO2 VBG pH Sodium Potassium Chloride Carbon Dioxide BUN Creatinine Glucose POC Glucose 201 H 195 H 302 H Lactic Acid Calcium Ionized Calcium Phosphorus Magnesium AST Total Creatine Kinase C-Reactive Protein Total Protein Albumin TSH Free T4 PTH Intact Urine WBC (Auto) Urine Creatinine Salicylates Acetaminophen 11/10/18 11/10/18 11/11/18 15:55 21:44 02:06 WBC RBC Hgb Hct Plt Count Lymph % (Auto) [place] % (Auto) Lymph # Seg Neutrophils % Seg Neuts % (Manual) Lymphocytes % (Manual) Seg Neutrophils # Seg Neutrophils # Man Lymphocytes # (Manual) PT INR POC ABG pCO2 VBG pH Sodium Potassium Chloride Carbon Dioxide BUN Creatinine Glucose POC Glucose 292 H 348 H 370 H Lactic Acid Calcium Ionized Calcium Phosphorus Magnesium AST Total Creatine Kinase C-Reactive Protein Total Protein Albumin TSH Free T4 PTH Intact Urine WBC (Auto) Urine Creatinine Salicylates Acetaminophen 11/11/18 11/11/18 11/11/18 04:42 04:42 05:20 WBC RBC 3.13 L Hgb 9.5 L Hct 28.2 L Plt Count Lymph % (Auto) [place] % (Auto) Lymph # Seg Neutrophils % Seg Neuts % (Manual) 91.0 H Lymphocytes % (Manual) 4.0 L Seg Neutrophils # Seg Neutrophils # Man 8.6 H Lymphocytes # (Manual) 0.4 L PT INR POC ABG pCO2 VBG pH Sodium Potassium Chloride 109.6 H Carbon Dioxide BUN 28 H Creatinine Glucose 263 H POC Glucose 272 H Lactic Acid Calcium 7.9 L Ionized Calcium Phosphorus Magnesium AST Total Creatine Kinase C-Reactive Protein Total Protein 5.6 L Albumin 1.6 L TSH Free T4 PTH Intact Urine WBC (Auto) Urine Creatinine Salicylates Acetaminophen 11/11/18 11/11/18 08:30 13:09 WBC RBC Hgb Hct Plt Count Lymph % (Auto) [place] % (Auto) Lymph # Seg Neutrophils % Seg Neuts % (Manual) Lymphocytes % (Manual) Seg Neutrophils # Seg Neutrophils # Man Lymphocytes # (Manual) PT INR POC ABG pCO2 VBG pH Sodium Potassium Chloride Carbon Dioxide BUN Creatinine Glucose POC Glucose 290 H 340 H Lactic Acid Calcium Ionized Calcium Phosphorus Magnesium AST Total Creatine Kinase C-Reactive Protein Total Protein Albumin TSH Free T4 PTH Intact Urine WBC (Auto) Urine Creatinine Salicylates Acetaminophen Chest x-ray: report reviewed (Reported No acute pulmonary and pleural abnormalities.), image reviewed
--- NOTE | 2018-11-11 16:20 | Progress Note ---
Assessment and Plan - Patient Problems (1) ARF (acute renal failure) Current Visit: Yes Status: Acute Plan to address problem: Mr. Good function with good urinary output and continue to monitor BUN and creatinine and urinary output (2) Acute alteration in mental status Current Visit: Yes Status: Acute (3) Acute kidney injury Current Visit: Yes Status: Acute Plan to address problem: Constinue to encourage hydration as tolerated (4) DKA (diabetic ketoacidoses) Current Visit: Yes Status: Acute Plan to address problem: Tachycardia now resolved and patient on sliding scale insulin plus long-acting insulin and continue to monitor her blood sugar every 6 hours. Will discontinue IV fluids described earlier in view of ongoing myocardial ischemia and DKAand hypernatremia now resolved we'll continue to increase free water flushes via NG tube. (5) DVT prophylaxis Current Visit: Yes Status: Acute Subjective Date of service: 11/11/18 Principal diagnosis: Ac hypoxemic resp failure; Severe sepsis; DKA; JAVY; Ac encephalopathy; UTI Interval history: Conference with Dr. Moreira. Covering for Dr Moreira Patient seen and examined [facility] consult wasreviewed. 53-year-old male admitted into ICU with diagnosis of DKA severe sepsis and acute renal failure, patient denied any new complaints at this time but requesting to have NG tube discontinued. Denied any chest or shortness of breath and no fever reported by the nursing staff Patient denied abdominal pain is generally weak Objective - Exam Narrative Exam: GENERAL:[Patient is not in any acute distress resting comfortably in bed, nasogastric tube in place With this wound] HEENT: [Head examination showed normocephalic. Patient is not pale, not jaundiced, and not cyanosed.] [Mucous membrane is moist, pharynx is clear, no exudates or hemorrhage. Dentition is normal.] NECK: [Supple. Neck showed good range of motion. There is no adenopathy noted. No jugular venous distention and no thyromegaly.] [Neck auscultation showed no carotid bruit.] CHEST/LUNGS: [Good air exchange bilaterally. Clear to auscultation. There is no respiratory distress noted. Chest percussion normal, symmetrical chest movements with no chest wall tenderness.] HEART/CARDIOVASCULAR: [No murmur. Regular rate and rhythm. S1 and S2 only, no S3 gallop, no S4.] ABDOMEN: [Abdomen is soft, nontender. Patient has normal bowel sounds. There is no abdominal distention. Liver and spleen not palpably enlarged.] SKIN: [There is no rash. There is no edema. There is no diaphoresis.] NEURO: [The patient is awake, alert, and oriented. The patient is cooperative. The patient has no focal neurologic deficits. Cranial nerves 2-12 grossly normal, power is 5/5 in all the extremities tested. The patient has normal speech and gait.] MUSCULOSKELETAL: [There is no tenderness or deformity. There is no limitation range of motion. There is no evidence of acute injury.] EXTREMITIES: Palpable PERIPHERAL PULSES no pretibial edema, no finger or toe clubbing.] - Constitutional Vitals: Vital Signs - 12hr 11/11/18 11/11/18 11/11/18 04:31 05:01 05:31 Pulse Rate 85 86 91 H Blood Pressure 109/61 109/61 109/61 O2 Sat by Pulse 96 95 95 Oximetry 11/11/18 11/11/18 11/11/18 06:01 06:31 07:01 Pulse Rate 92 H 92 H 88 Blood Pressure 109/61 109/61 109/61 O2 Sat by Pulse 94 94 96 Oximetry 11/11/18 11/11/18 07:31 08:00 Pulse Rate 94 H 88 Blood Pressure 109/61 109/61 O2 Sat by Pulse 95 96 Oximetry - Labs CBC & Chem 7: 11/11/18 04:42 11/11/18 04:42 Labs: Abnormal lab results 11/10/18 11/11/18 11/11/18 Range/Units 21:44 02:06 04:42 RBC 3.13 L (3.65-5.03) M/mm3 Hgb 9.5 L (11.8-15.2) gm/dl Hct 28.2 L (35.5-45.6) % Seg Neuts % (Manual) 91.0 H (40.0-70.0) % Lymphocytes % (Manual) 4.0 L (13.4-35.0) % Seg Neutrophils # Man 8.6 H (1.8-7.7) K/mm3 Lymphocytes # (Manual) 0.4 L (1.2-5.4) K/mm3 Chloride (98-107) mmol/L BUN (9-20) mg/dL Glucose (75-100) mg/dL POC Glucose 348 H 370 H (70-105) Calcium (8.4-10.2) mg/dL Total Protein (6.3-8.2) g/dL Albumin (3.9-5) g/dL 11/11/18 11/11/18 11/11/18 Range/Units 04:42 05:20 08:30 RBC (3.65-5.03) M/mm3 Hgb (11.8-15.2) gm/dl Hct (35.5-45.6) % Seg Neuts % (Manual) (40.0-70.0) % Lymphocytes % (Manual) (13.4-35.0) % Seg Neutrophils # Man (1.8-7.7) K/mm3 Lymphocytes # (Manual) (1.2-5.4) K/mm3 Chloride 109.6 H (98-107) mmol/L BUN 28 H (9-20) mg/dL Glucose 263 H (75-100) mg/dL POC Glucose 272 H 290 H (70-105) Calcium 7.9 L (8.4-10.2) mg/dL Total Protein 5.6 L (6.3-8.2) g/dL Albumin 1.6 L (3.9-5) g/dL 11/11/18 Range/Units 13:09 RBC (3.65-5.03) M/mm3 Hgb (11.8-15.2) gm/dl Hct (35.5-45.6) % Seg Neuts % (Manual) (40.0-70.0) % Lymphocytes % (Manual) (13.4-35.0) % Seg Neutrophils # Man (1.8-7.7) K/mm3 Lymphocytes # (Manual) (1.2-5.4) K/mm3 Chloride (98-107) mmol/L BUN (9-20) mg/dL Glucose (75-100) mg/dL POC Glucose 340 H (70-105) Calcium (8.4-10.2) mg/dL Total Protein (6.3-8.2) g/dL Albumin (3.9-5) g/dL
[2018-11-11] MEDS: LANTUS SUB-Q SCH (22:02)
[2018-11-12] MEDS: HumaLOG SUB-Q SCH ×6 (01:13→21:49)
[2018-11-12 05:00] LABS: Basophils % (Auto) 0.5 % (0.0-1.8); Eosinophils # (Auto) 0.1 K/mm3 (0.0-0.4); Eosinophils % (Auto) 1.3 % (0.0-4.3); Hematocrit 28.6 % (35.5-45.6); Hemoglobin 9.7 gm/dl (11.8-15.2); Lymphocytes # (Auto) 0.7 K/mm3 (1.2-5.4); Mean Corpuscular HGB Conc 34 % (32-34); Mean Corpuscular Volume 89 fl (84-94); Monocytes # (Auto) 0.7 K/mm3 (0.0-0.8); Monocytes % (Auto) 7.5 % (0.0-7.3); Platelet Count 454 K/mm3 (140-440); Red Blood Count 3.22 M/mm3 (3.65-5.03); Red Cell Distribution Width 13.4 % (13.2-15.2)
[2018-11-12 05:24] LABS: Alanine Aminotransferase 21 units/L (7-56); Albumin 1.8 g/dL (3.9-5); BUN/Creatinine Ratio 30; Blood Urea Nitrogen 24 mg/dL (9-20); Calcium 8.2 mg/dL (8.4-10.2); Hemolysis Index 1
[2018-11-12] MEDS: FLOMAX PO SCH (09:52)
[2018-11-12] MEDS: HEPARIN SUB-Q SCH ×2 (09:53→21:48)
[2018-11-12] MEDS: PREVACID SOLUTAB FEEDTUBE SCH ×2 (09:53→21:48)
[2018-11-12] MEDS: SODIUM CHLORIDE FLUSH SYRINGE 10 ML IV SCH ×2 (09:53→21:49)
[2018-11-12] MEDS: LEVAQUIN PO SCH (09:53)
--- NOTE | 2018-11-12 12:50 | Progress Note ---
Assessment and Plan Patient alert, awake. Resting on room air. O2 saturation 99% on room air. No complaint of chest pain, shortness of breath or cough. - Patient Problems (1) ARF (acute renal failure) Current Visit: Yes Status: Acute Plan to address problem: Management as per nephrology. (2) Acidosis Current Visit: Yes Status: Acute Plan to address problem: Improved. (3) DKA (diabetic ketoacidoses) Current Visit: Yes Status: Acute Plan to address problem: Improved. Management as per primary care. Repeating ABGs (4) Hypothyroidism Current Visit: Yes Status: Acute Qualifiers: Hypothyroidism type: unspecified Qualified Code(s): E03.9 - Hypothyroidism, unspecified Plan to address problem: Management as per primary care. Subjective Date of service: 11/12/18 Principal diagnosis: Ac hypoxemic resp failure; Severe sepsis; DKA; JAVY; Ac encephalopathy; UTI Interval history: Patient alert, awake. Resting on room air. O2 saturation 99% on room air. No complaint of chest pain, shortness of breath or cough. Objective Vital Signs - 12hr 11/12/18 11/12/18 11/12/18 01:00 02:00 03:00 Temperature Pulse Rate 92 H 95 H 95 H Pulse Rate [ From Monitor] Respiratory Rate Blood Pressure 114/65 112/65 115/66 O2 Sat by Pulse 94 93 94 Oximetry 11/12/18 11/12/18 11/12/18 04:00 05:00 06:00 Temperature 98 F Pulse Rate 92 H 97 H 98 H Pulse Rate [ 95 H From Monitor] Respiratory 19 Rate Blood Pressure 116/66 122/74 119/73 O2 Sat by Pulse 94 93 Oximetry 11/12/18 11/12/18 11/12/18 07:00 08:00 09:00 Temperature 98.5 F Pulse Rate 104 H 98 H 96 H Pulse Rate [ 98 H From Monitor] Respiratory 18 Rate Blood Pressure 106/58 116/61 111/57 O2 Sat by Pulse 94 98 93 Oximetry 11/12/18 11/12/18 11/12/18 10:00 11:00 12:00 Temperature 97.9 F Pulse Rate 100 H 94 H 93 H Pulse Rate [ 93 H From Monitor] Respiratory 20 Rate Blood Pressure 112/66 103/56 O2 Sat by Pulse 95 99 Oximetry Constitutional: no acute distress, alert Eyes: non-icteric Neck: supple, no lymphadenopathy Ascultation: Bilateral: clear Cardiovascular: regular rate and rhythm Gastrointestinal: normoactive bowel sounds Integumentary: normal Extremities: no cyanosis, no edema Neurologic: normal mental status, non-focal exam, pupils equal and round, CN II- XII normal Psychiatric: depressed CBC and BMP: 11/12/18 04:51 11/12/18 04:51 ABG, PT/INR, D-dimer: ABG POC ABG pH 7.432 (7.35-7.45) 11/05/18 17:08 POC ABG pCO2 32.3 (35-45) L 11/05/18 17:08 POC ABG HCO3 21.5 (22-26 mml/L) 11/05/18 17:08 POC ABG Total CO2 23 (23-27mmol/L) 11/05/18 17:08 POC ABG O2 Sat 85 11/05/18 17:08 PT/INR, D-dimer PT 15.6 Sec. (12.2-14.9) H 11/04/18 16:05 INR 1.27 (0.87-1.13) H 11/04/18 16:05 Abnormal lab findings: Abnormal Labs 11/04/18 11/04/18 11/04/18 15:23 15:35 16:05 WBC 12.6 H RBC Hgb Hct Plt Count Lymph % (Auto) [place] % (Auto) Lymph # Seg Neutrophils % Seg Neuts % (Manual) 84.0 H Lymphocytes % (Manual) 1.0 L Seg Neutrophils # Seg Neutrophils # Man 10.6 H Lymphocytes # (Manual) 0.1 L PT INR POC ABG pCO2 VBG pH Sodium Potassium Chloride Carbon Dioxide BUN Creatinine Glucose POC Glucose > 500 H Lactic Acid Calcium Ionized Calcium Phosphorus Magnesium AST Total Creatine Kinase C-Reactive Protein Total Protein Albumin TSH Free T4 PTH Intact Urine WBC (Auto) 12.0 H Urine Creatinine Salicylates Acetaminophen 11/04/18 11/04/18 11/04/18 16:05 16:05 16:05 WBC RBC Hgb Hct Plt Count Lymph % (Auto) [place] % (Auto) Lymph # Seg Neutrophils % Seg Neuts % (Manual) Lymphocytes % (Manual) Seg Neutrophils # Seg Neutrophils # Man Lymphocytes # (Manual) PT 15.6 H INR 1.27 H POC ABG pCO2 VBG pH Sodium 153 H Potassium 6.2 H* Chloride Carbon Dioxide 18 L BUN 200 H Creatinine 6.8 H Glucose 1088 H* POC Glucose Lactic Acid 2.80 H* Calcium 7.2 L Ionized Calcium Phosphorus Magnesium AST Total Creatine Kinase C-Reactive Protein Total Protein Albumin 3.1 L TSH Free T4 PTH Intact Urine WBC (Auto) Urine Creatinine Salicylates Acetaminophen 11/04/18 11/04/18 11/04/18 16:05 16:05 16:05 WBC RBC Hgb Hct Plt Count Lymph % (Auto) [place] % (Auto) Lymph # Seg Neutrophils % Seg Neuts % (Manual) Lymphocytes % (Manual) Seg Neutrophils # Seg Neutrophils # Man Lymphocytes # (Manual) PT INR POC ABG pCO2 VBG pH 7.245 L Sodium Potassium Chloride Carbon Dioxide BUN Creatinine Glucose POC Glucose Lactic Acid Calcium Ionized Calcium Phosphorus 13.80 H Magnesium 3.60 H AST Total Creatine Kinase C-Reactive Protein Total Protein Albumin TSH 0.169 L Free T4 0.68 L PTH Intact Urine WBC (Auto) Urine Creatinine Salicylates Acetaminophen 11/04/18 11/04/18 11/04/18 16:05 16:48 19:40 WBC RBC Hgb Hct Plt Count Lymph % (Auto) [place] % (Auto) Lymph # Seg Neutrophils % Seg Neuts % (Manual) Lymphocytes % (Manual) Seg Neutrophils # Seg Neutrophils # Man Lymphocytes # (Manual) PT INR POC ABG pCO2 VBG pH Sodium Potassium Chloride Carbon Dioxide BUN Creatinine Glucose POC Glucose > 500 H 458 H Lactic Acid Calcium Ionized Calcium Phosphorus Magnesium AST Total Creatine Kinase 1857 H C-Reactive Protein Total Protein Albumin TSH Free T4 PTH Intact Urine WBC (Auto) Urine Creatinine Salicylates Acetaminophen 11/04/18 11/04/18 11/04/18 20:29 20:29 20:29 WBC RBC Hgb Hct Plt Count Lymph % (Auto) [place] % (Auto) Lymph # Seg Neutrophils % Seg Neuts % (Manual) Lymphocytes % (Manual) Seg Neutrophils # Seg Neutrophils # Man Lymphocytes # (Manual) PT INR POC ABG pCO2 VBG pH Sodium 163 H* D Potassium Chloride 121.4 H Carbon Dioxide 21 L BUN 166 H Creatinine 5.6 H Glucose 513 H* POC Glucose Lactic Acid 3.30 H* 3.30 H* Calcium 6.4 L Ionized Calcium Phosphorus Magnesium AST Total Creatine Kinase C-Reactive Protein Total Protein Albumin TSH Free T4 PTH Intact Urine WBC (Auto) Urine Creatinine Salicylates Acetaminophen 11/04/18 11/04/18 11/04/18 20:55 21:03 22:00 WBC RBC Hgb Hct Plt Count Lymph % (Auto) [place] % (Auto) Lymph # Seg Neutrophils % Seg Neuts % (Manual) Lymphocytes % (Manual) Seg Neutrophils # Seg Neutrophils # Man Lymphocytes # (Manual) PT INR POC ABG pCO2 VBG pH Sodium Potassium Chloride Carbon Dioxide BUN Creatinine Glucose POC Glucose 496 H Lactic Acid 3.60 H* Calcium Ionized Calcium Phosphorus Magnesium AST Total Creatine Kinase C-Reactive Protein Total Protein Albumin TSH Free T4 PTH Intact Urine WBC (Auto) Urine Creatinine 58.1 H Salicylates Acetaminophen 11/04/18 11/04/18 11/04/18 22:04 23:07 23:47 WBC RBC Hgb Hct Plt Count Lymph % (Auto) [place] % (Auto) Lymph # Seg Neutrophils % Seg Neuts % (Manual) Lymphocytes % (Manual) Seg Neutrophils # Seg Neutrophils # Man Lymphocytes # (Manual) PT INR POC ABG pCO2 VBG pH Sodium 170 H* Potassium Chloride 127.1 H Carbon Dioxide BUN 164 H Creatinine 5.2 H Glucose 213 H POC Glucose 357 H 306 H Lactic Acid Calcium 6.5 L Ionized Calcium Phosphorus Magnesium AST Total Creatine Kinase C-Reactive Protein Total Protein Albumin TSH Free T4 PTH Intact Urine WBC (Auto) Urine Creatinine Salicylates Acetaminophen 11/04/18 11/05/18 11/05/18 23:47 00:04 00:09 WBC RBC Hgb Hct Plt Count Lymph % (Auto) [place] % (Auto) Lymph # Seg Neutrophils % Seg Neuts % (Manual) Lymphocytes % (Manual) Seg Neutrophils # Seg Neutrophils # Man Lymphocytes # (Manual) PT INR POC ABG pCO2 VBG pH Sodium 163 H* Potassium Chloride 127.5 H Carbon Dioxide BUN 117 H Creatinine 3.3 H Glucose 235 H POC Glucose 219 H Lactic Acid 3.20 H* Calcium 6.8 L Ionized Calcium Phosphorus Magnesium AST Total Creatine Kinase C-Reactive Protein Total Protein Albumin TSH Free T4 PTH Intact Urine WBC (Auto) Urine Creatinine Salicylates Acetaminophen 11/05/18 11/05/18 11/05/18 00:59 03:13 03:52 WBC RBC Hgb Hct Plt Count Lymph % (Auto) [place] % (Auto) Lymph # Seg Neutrophils % Seg Neuts % (Manual) Lymphocytes % (Manual) Seg Neutrophils # Seg Neutrophils # Man Lymphocytes # (Manual) PT INR POC ABG pCO2 VBG pH Sodium Potassium Chloride Carbon Dioxide BUN Creatinine Glucose POC Glucose 204 H 124 H Lactic Acid Calcium Ionized Calcium Phosphorus Magnesium AST Total Creatine Kinase 1680 H C-Reactive Protein Total Protein Albumin TSH Free T4 PTH Intact Urine WBC (Auto) Urine Creatinine Salicylates Acetaminophen 11/05/18 11/05/18 11/05/18 03:52 04:25 05:11 WBC RBC Hgb Hct Plt Count Lymph % (Auto) [place] % (Auto) Lymph # Seg Neutrophils % Seg Neuts % (Manual) Lymphocytes % (Manual) Seg Neutrophils # Seg Neutrophils # Man Lymphocytes # (Manual) PT INR POC ABG pCO2 VBG pH Sodium 169 H* Potassium Chloride 126.2 H Carbon Dioxide BUN 156 H Creatinine 4.7 H Glucose 128 H POC Glucose 150 H 173 H Lactic Acid Calcium 6.3 L Ionized Calcium Phosphorus Magnesium AST Total Creatine Kinase C-Reactive Protein Total Protein Albumin TSH Free T4 PTH Intact Urine WBC (Auto) Urine Creatinine Salicylates Acetaminophen 11/05/18 11/05/18 11/05/18 06:05 06:58 07:48 WBC RBC Hgb Hct Plt Count Lymph % (Auto) [place] % (Auto) Lymph # Seg Neutrophils % Seg Neuts % (Manual) Lymphocytes % (Manual) Seg Neutrophils # Seg Neutrophils # Man Lymphocytes # (Manual) PT INR POC ABG pCO2 VBG pH Sodium Potassium Chloride Carbon Dioxide BUN Creatinine Glucose POC Glucose 136 H 152 H 177 H Lactic Acid Calcium Ionized Calcium Phosphorus Magnesium AST Total Creatine Kinase C-Reactive Protein Total Protein Albumin TSH Free T4 PTH Intact Urine WBC (Auto) Urine Creatinine Salicylates Acetaminophen 11/05/18 11/05/18 11/05/18 08:21 08:21 08:23 WBC RBC Hgb Hct Plt Count Lymph % (Auto) [place] % (Auto) Lymph # Seg Neutrophils % Seg Neuts % (Manual) Lymphocytes % (Manual) Seg Neutrophils # Seg Neutrophils # Man Lymphocytes # (Manual) PT INR POC ABG pCO2 VBG pH Sodium 171 H* Potassium Chloride 128.9 H Carbon Dioxide BUN 149 H Creatinine 4.5 H Glucose 159 H POC Glucose 157 H Lactic Acid Calcium 6.7 L Ionized Calcium Phosphorus Magnesium AST Total Creatine Kinase C-Reactive Protein Total Protein Albumin TSH Free T4 PTH Intact 119.3 H Urine WBC (Auto) Urine Creatinine Salicylates Acetaminophen 11/05/18 11/05/18 11/05/18 10:21 11:12 12:37 WBC RBC Hgb Hct Plt Count Lymph % (Auto) [place] % (Auto) Lymph # Seg Neutrophils % Seg Neuts % (Manual) Lymphocytes % (Manual) Seg Neutrophils # Seg Neutrophils # Man Lymphocytes # (Manual) PT INR POC ABG pCO2 VBG pH Sodium Potassium Chloride Carbon Dioxide BUN Creatinine Glucose POC Glucose 171 H 155 H 145 H Lactic Acid Calcium Ionized Calcium Phosphorus Magnesium AST Total Creatine Kinase C-Reactive Protein Total Protein Albumin TSH Free T4 PTH Intact Urine WBC (Auto) Urine Creatinine Salicylates Acetaminophen 11/05/18 11/05/18 11/05/18 13:24 13:47 14:42 WBC RBC Hgb Hct Plt Count Lymph % (Auto) [place] % (Auto) Lymph # Seg Neutrophils % Seg Neuts % (Manual) Lymphocytes % (Manual) Seg Neutrophils # Seg Neutrophils # Man Lymphocytes # (Manual) PT INR POC ABG pCO2 VBG pH Sodium 167 H* Potassium Chloride 131.6 H Carbon Dioxide BUN 130 H Creatinine 3.8 H Glucose 136 H POC Glucose 137 H 133 H Lactic Acid Calcium 6.4 L Ionized Calcium Phosphorus Magnesium AST Total Creatine Kinase C-Reactive Protein Total Protein Albumin TSH Free T4 PTH Intact Urine WBC (Auto) Urine Creatinine Salicylates Acetaminophen 11/05/18 11/05/18 11/05/18 16:55 17:08 18:14 WBC RBC Hgb Hct Plt Count Lymph % (Auto) [place] % (Auto) Lymph # Seg Neutrophils % Seg Neuts % (Manual) Lymphocytes % (Manual) Seg Neutrophils # Seg Neutrophils # Man Lymphocytes # (Manual) PT INR POC ABG pCO2 32.3 L VBG pH Sodium Potassium Chloride Carbon Dioxide BUN Creatinine Glucose POC Glucose 194 H 195 H Lactic Acid Calcium Ionized Calcium Phosphorus Magnesium AST Total Creatine Kinase C-Reactive Protein Total Protein Albumin TSH Free T4 PTH Intact Urine WBC (Auto) Urine Creatinine Salicylates Acetaminophen 11/05/18 11/05/18 11/05/18 18:35 18:35 18:35 WBC RBC Hgb Hct Plt Count Lymph % (Auto) [place] % (Auto) Lymph # Seg Neutrophils % Seg Neuts % (Manual) Lymphocytes % (Manual) Seg Neutrophils # Seg Neutrophils # Man Lymphocytes # (Manual) PT INR POC ABG pCO2 VBG pH Sodium Potassium Chloride Carbon Dioxide BUN Creatinine Glucose POC Glucose Lactic Acid Calcium Ionized Calcium Phosphorus Magnesium AST Total Creatine Kinase C-Reactive Protein 19.50 H Total Protein Albumin TSH Free T4 PTH Intact Urine WBC (Auto) Urine Creatinine Salicylates < 0.3 L Acetaminophen < 5.0 L 11/05/18 11/06/18 11/06/18 21:09 01:36 04:50 WBC RBC Hgb 11.3 L Hct 32.8 L D Plt Count 110 L Lymph % (Auto) [place] % (Auto) Lymph # Seg Neutrophils % Seg Neuts % (Manual) Lymphocytes % (Manual) Seg Neutrophils # Seg Neutrophils # Man Lymphocytes # (Manual) PT INR POC ABG pCO2 VBG pH Sodium Potassium Chloride Carbon Dioxide BUN Creatinine Glucose POC Glucose 250 H 289 H Lactic Acid Calcium Ionized Calcium Phosphorus Magnesium AST Total Creatine Kinase C-Reactive Protein Total Protein Albumin TSH Free T4 PTH Intact Urine WBC (Auto) Urine Creatinine Salicylates Acetaminophen 11/06/18 11/06/18 11/06/18 04:50 04:50 05:14 WBC RBC Hgb Hct Plt Count Lymph % (Auto) [place] % (Auto) Lymph # Seg Neutrophils % Seg Neuts % (Manual) Lymphocytes % (Manual) Seg Neutrophils # Seg Neutrophils # Man Lymphocytes # (Manual) PT INR POC ABG pCO2 VBG pH Sodium 165 H* 164 H* Potassium Chloride 127.4 H Carbon Dioxide BUN 113 H Creatinine 3.2 H Glucose 208 H POC Glucose 215 H Lactic Acid Calcium 6.8 L Ionized Calcium Phosphorus Magnesium AST 55 H Total Creatine Kinase C-Reactive Protein Total Protein 5.2 L D Albumin 2.3 L TSH Free T4 PTH Intact Urine WBC (Auto) Urine Creatinine Salicylates Acetaminophen 11/06/18 11/06/18 11/06/18 07:50 08:50 12:16 WBC RBC Hgb Hct Plt Count Lymph % (Auto) [place] % (Auto) Lymph # Seg Neutrophils % Seg Neuts % (Manual) Lymphocytes % (Manual) Seg Neutrophils # Seg Neutrophils # Man Lymphocytes # (Manual) PT INR POC ABG pCO2 VBG pH Sodium 161 H* Potassium Chloride 126.0 H Carbon Dioxide BUN 111 H Creatinine 3.0 H Glucose 187 H POC Glucose 239 H 198 H Lactic Acid Calcium 7.0 L Ionized Calcium Phosphorus Magnesium AST Total Creatine Kinase C-Reactive Protein Total Protein Albumin TSH Free T4 PTH Intact Urine WBC (Auto) Urine Creatinine Salicylates Acetaminophen 11/06/18 11/06/18 11/06/18 15:42 15:42 17:59 WBC RBC Hgb Hct Plt Count Lymph % (Auto) [place] % (Auto) Lymph # Seg Neutrophils % Seg Neuts % (Manual) Lymphocytes % (Manual) Seg Neutrophils # Seg Neutrophils # Man Lymphocytes # (Manual) PT INR POC ABG pCO2 VBG pH Sodium 162 H* Potassium Chloride 127.3 H Carbon Dioxide BUN 98 H Creatinine 2.7 H Glucose 195 H POC Glucose 225 H Lactic Acid Calcium 7.1 L Ionized Calcium 4.4 L Phosphorus Magnesium AST Total Creatine Kinase C-Reactive Protein Total Protein Albumin TSH Free T4 PTH Intact Urine WBC (Auto) Urine Creatinine Salicylates Acetaminophen 11/06/18 11/06/18 11/06/18 21:21 21:24 21:24 WBC RBC Hgb 11.0 L Hct 33.4 L Plt Count Lymph % (Auto) [place] % (Auto) Lymph # Seg Neutrophils % Seg Neuts % (Manual) Lymphocytes % (Manual) Seg Neutrophils # Seg Neutrophils # Man Lymphocytes # (Manual) PT INR POC ABG pCO2 VBG pH Sodium Potassium Chloride Carbon Dioxide BUN Creatinine Glucose POC Glucose 272 H Lactic Acid Calcium Ionized Calcium Phosphorus Magnesium AST Total Creatine Kinase 3538 H C-Reactive Protein Total Protein Albumin TSH Free T4 PTH Intact Urine WBC (Auto) Urine Creatinine Salicylates Acetaminophen 11/07/18 11/07/18 11/07/18 02:01 04:13 04:13 WBC RBC Hgb 11.4 L Hct 33.8 L Plt Count 103 L Lymph % (Auto) [place] % (Auto) Lymph # Seg Neutrophils % Seg Neuts % (Manual) 83.0 H Lymphocytes % (Manual) 6.0 L Seg Neutrophils # Seg Neutrophils # Man Lymphocytes # (Manual) 0.6 L PT INR POC ABG pCO2 VBG pH Sodium 161 H* Potassium Chloride 125.8 H Carbon Dioxide BUN 80 H Creatinine 2.4 H Glucose 246 H POC Glucose 282 H Lactic Acid Calcium 7.4 L Ionized Calcium Phosphorus Magnesium 2.50 H AST 106 H Total Creatine Kinase C-Reactive Protein Total Protein 5.7 L Albumin 2.0 L TSH Free T4 PTH Intact Urine WBC (Auto) Urine Creatinine Salicylates Acetaminophen 11/07/18 11/07/18 11/07/18 04:13 05:17 09:15 WBC RBC Hgb Hct Plt Count Lymph % (Auto) [place] % (Auto) Lymph # Seg Neutrophils % Seg Neuts % (Manual) Lymphocytes % (Manual) Seg Neutrophils # Seg Neutrophils # Man Lymphocytes # (Manual) PT INR POC ABG pCO2 VBG pH Sodium Potassium Chloride Carbon Dioxide BUN Creatinine Glucose POC Glucose 256 H 287 H Lactic Acid Calcium Ionized Calcium Phosphorus Magnesium AST Total Creatine Kinase 2918 H C-Reactive Protein Total Protein Albumin TSH Free T4 PTH Intact Urine WBC (Auto) Urine Creatinine Salicylates Acetaminophen 11/07/18 11/07/18 11/07/18 13:27 15:10 16:38 WBC RBC Hgb 10.2 L Hct 31.2 L Plt Count Lymph % (Auto) [place] % (Auto) Lymph # Seg Neutrophils % Seg Neuts % (Manual) Lymphocytes % (Manual) Seg Neutrophils # Seg Neutrophils # Man Lymphocytes # (Manual) PT INR POC ABG pCO2 VBG pH Sodium Potassium Chloride Carbon Dioxide BUN Creatinine Glucose POC Glucose 281 H 284 H Lactic Acid Calcium Ionized Calcium Phosphorus Magnesium AST Total Creatine Kinase C-Reactive Protein Total Protein Albumin TSH Free T4 PTH Intact Urine WBC (Auto) Urine Creatinine Salicylates Acetaminophen 11/07/18 11/07/18 11/08/18 21:08 21:41 01:24 WBC RBC Hgb 10.2 L Hct 30.8 L Plt Count Lymph % (Auto) [place] % (Auto) Lymph # Seg Neutrophils % Seg Neuts % (Manual) Lymphocytes % (Manual) Seg Neutrophils # Seg Neutrophils # Man Lymphocytes # (Manual) PT INR POC ABG pCO2 VBG pH Sodium Potassium Chloride Carbon Dioxide BUN Creatinine Glucose POC Glucose 349 H 363 H Lactic Acid Calcium Ionized Calcium Phosphorus Magnesium AST Total Creatine Kinase C-Reactive Protein Total Protein Albumin TSH Free T4 PTH Intact Urine WBC (Auto) Urine Creatinine Salicylates Acetaminophen 11/08/18 11/08/18 11/08/18 04:30 04:30 04:30 WBC RBC 3.26 L Hgb 10.2 L Hct 29.9 L Plt Count 103 L Lymph % (Auto) 7.7 L [place] % (Auto) 7.5 H Lymph # 0.8 L Seg Neutrophils % 83.6 H Seg Neuts % (Manual) Lymphocytes % (Manual) Seg Neutrophils # 8.6 H Seg Neutrophils # Man Lymphocytes # (Manual) PT INR POC ABG pCO2 VBG pH Sodium 157 H Potassium 3.5 L Chloride 119.8 H Carbon Dioxide BUN 52 H Creatinine 1.9 H Glucose 244 H POC Glucose Lactic Acid Calcium 7.3 L Ionized Calcium Phosphorus Magnesium AST 88 H Total Creatine Kinase 1829 H C-Reactive Protein Total Protein 4.4 L D Albumin 2.3 L TSH Free T4 PTH Intact Urine WBC (Auto) Urine Creatinine Salicylates Acetaminophen 11/08/18 11/08/18 11/08/18 05:34 09:12 14:20 WBC RBC Hgb Hct Plt Count Lymph % (Auto) [place] % (Auto) Lymph # Seg Neutrophils % Seg Neuts % (Manual) Lymphocytes % (Manual) Seg Neutrophils # Seg Neutrophils # Man Lymphocytes # (Manual) PT INR POC ABG pCO2 VBG pH Sodium Potassium Chloride Carbon Dioxide BUN Creatinine Glucose POC Glucose 250 H 299 H 379 H Lactic Acid Calcium Ionized Calcium Phosphorus Magnesium AST Total Creatine Kinase C-Reactive Protein Total Protein Albumin TSH Free T4 PTH Intact Urine WBC (Auto) Urine Creatinine Salicylates Acetaminophen 11/08/18 11/08/18 11/08/18 14:40 17:14 21:59 WBC RBC Hgb 10.2 L Hct 30.8 L Plt Count Lymph % (Auto) [place] % (Auto) Lymph # Seg Neutrophils % Seg Neuts % (Manual) Lymphocytes % (Manual) Seg Neutrophils # Seg Neutrophils # Man Lymphocytes # (Manual) PT INR POC ABG pCO2 VBG pH Sodium Potassium Chloride Carbon Dioxide BUN Creatinine Glucose POC Glucose 356 H 385 H Lactic Acid Calcium Ionized Calcium Phosphorus Magnesium AST Total Creatine Kinase C-Reactive Protein Total Protein Albumin TSH Free T4 PTH Intact Urine WBC (Auto) Urine Creatinine Salicylates Acetaminophen 11/09/18 11/09/18 11/09/18 00:57 04:33 04:33 WBC RBC 3.20 L Hgb 9.7 L Hct 29.3 L Plt Count 117 L Lymph % (Auto) 8.2 L [place] % (Auto) 7.4 H Lymph # 0.8 L Seg Neutrophils % 83.2 H Seg Neuts % (Manual) Lymphocytes % (Manual) Seg Neutrophils # Seg Neutrophils # Man Lymphocytes # (Manual) PT INR POC ABG pCO2 VBG pH Sodium 148 H D Potassium Chloride 113.2 H Carbon Dioxide BUN 37 H Creatinine Glucose 252 H POC Glucose 362 H Lactic Acid Calcium 7.8 L Ionized Calcium Phosphorus 1.90 L Magnesium AST 52 H Total Creatine Kinase C-Reactive Protein Total Protein 5.3 L D Albumin 1.6 L TSH Free T4 PTH Intact Urine WBC (Auto) Urine Creatinine Salicylates Acetaminophen 11/09/18 11/09/18 11/09/18 05:24 09:15 13:12 WBC RBC Hgb Hct Plt Count Lymph % (Auto) [place] % (Auto) Lymph # Seg Neutrophils % Seg Neuts % (Manual) Lymphocytes % (Manual) Seg Neutrophils # Seg Neutrophils # Man Lymphocytes # (Manual) PT INR POC ABG pCO2 VBG pH Sodium Potassium Chloride Carbon Dioxide BUN Creatinine Glucose POC Glucose 304 H 297 H 300 H Lactic Acid Calcium Ionized Calcium Phosphorus Magnesium AST Total Creatine Kinase C-Reactive Protein Total Protein Albumin TSH Free T4 PTH Intact Urine WBC (Auto) Urine Creatinine Salicylates Acetaminophen 11/09/18 11/09/18 11/10/18 17:35 21:09 00:55 WBC RBC Hgb Hct Plt Count Lymph % (Auto) [place] % (Auto) Lymph # Seg Neutrophils % Seg Neuts % (Manual) Lymphocytes % (Manual) Seg Neutrophils # Seg Neutrophils # Man Lymphocytes # (Manual) PT INR POC ABG pCO2 VBG pH Sodium Potassium Chloride Carbon Dioxide BUN Creatinine Glucose POC Glucose 262 H 213 H 283 H Lactic Acid Calcium Ionized Calcium Phosphorus Magnesium AST Total Creatine Kinase C-Reactive Protein Total Protein Albumin TSH Free T4 PTH Intact Urine WBC (Auto) Urine Creatinine Salicylates Acetaminophen 11/10/18 11/10/18 11/10/18 04:46 04:46 04:46 WBC RBC 3.17 L Hgb 9.6 L Hct 28.7 L Plt Count Lymph % (Auto) 10.3 L [place] % (Auto) 10.0 H Lymph # 0.8 L Seg Neutrophils % 78.6 H Seg Neuts % (Manual) Lymphocytes % (Manual) Seg Neutrophils # Seg Neutrophils # Man Lymphocytes # (Manual) PT INR POC ABG pCO2 VBG pH Sodium 151 H Potassium 3.5 L Chloride 115.1 H Carbon Dioxide BUN 30 H Creatinine Glucose 183 H POC Glucose Lactic Acid Calcium 7.8 L Ionized Calcium Phosphorus Magnesium AST Total Creatine Kinase 408 H C-Reactive Protein Total Protein 5.7 L Albumin 1.8 L TSH Free T4 PTH Intact Urine WBC (Auto) Urine Creatinine Salicylates Acetaminophen 11/10/18 11/10/18 11/10/18 05:12 08:06 11:32 WBC RBC Hgb Hct Plt Count Lymph % (Auto) [place] % (Auto) Lymph # Seg Neutrophils % Seg Neuts % (Manual) Lymphocytes % (Manual) Seg Neutrophils # Seg Neutrophils # Man Lymphocytes # (Manual) PT INR POC ABG pCO2 VBG pH Sodium Potassium Chloride Carbon Dioxide BUN Creatinine Glucose POC Glucose 201 H 195 H 302 H Lactic Acid Calcium Ionized Calcium Phosphorus Magnesium AST Total Creatine Kinase C-Reactive Protein Total Protein Albumin TSH Free T4 PTH Intact Urine WBC (Auto) Urine Creatinine Salicylates Acetaminophen 11/10/18 11/10/18 11/11/18 15:55 21:44 02:06 WBC RBC Hgb Hct Plt Count Lymph % (Auto) [place] % (Auto) Lymph # Seg Neutrophils % Seg Neuts % (Manual) Lymphocytes % (Manual) Seg Neutrophils # Seg Neutrophils # Man Lymphocytes # (Manual) PT INR POC ABG pCO2 VBG pH Sodium Potassium Chloride Carbon Dioxide BUN Creatinine Glucose POC Glucose 292 H 348 H 370 H Lactic Acid Calcium Ionized Calcium Phosphorus Magnesium AST Total Creatine Kinase C-Reactive Protein Total Protein Albumin TSH Free T4 PTH Intact Urine WBC (Auto) Urine Creatinine Salicylates Acetaminophen 11/11/18 11/11/18 11/11/18 04:42 04:42 05:20 WBC RBC 3.13 L Hgb 9.5 L Hct 28.2 L Plt Count Lymph % (Auto) [place] % (Auto) Lymph # Seg Neutrophils % Seg Neuts % (Manual) 91.0 H Lymphocytes % (Manual) 4.0 L Seg Neutrophils # Seg Neutrophils # Man 8.6 H Lymphocytes # (Manual) 0.4 L PT INR POC ABG pCO2 VBG pH Sodium Potassium Chloride 109.6 H Carbon Dioxide BUN 28 H Creatinine Glucose 263 H POC Glucose 272 H Lactic Acid Calcium 7.9 L Ionized Calcium Phosphorus Magnesium AST Total Creatine Kinase C-Reactive Protein Total Protein 5.6 L Albumin 1.6 L TSH Free T4 PTH Intact Urine WBC (Auto) Urine Creatinine Salicylates Acetaminophen 11/11/18 11/11/18 11/11/18 08:30 13:09 17:10 WBC RBC Hgb Hct Plt Count Lymph % (Auto) [place] % (Auto) Lymph # Seg Neutrophils % Seg Neuts % (Manual) Lymphocytes % (Manual) Seg Neutrophils # Seg Neutrophils # Man Lymphocytes # (Manual) PT INR POC ABG pCO2 VBG pH Sodium Potassium Chloride Carbon Dioxide BUN Creatinine Glucose POC Glucose 290 H 340 H 276 H Lactic Acid Calcium Ionized Calcium Phosphorus Magnesium AST Total Creatine Kinase C-Reactive Protein Total Protein Albumin TSH Free T4 PTH Intact Urine WBC (Auto) Urine Creatinine Salicylates Acetaminophen 11/11/18 11/12/18 11/12/18 22:19 00:29 04:51 WBC RBC 3.22 L Hgb 9.7 L Hct 28.6 L Plt Count 454 H Lymph % (Auto) 7.0 L [place] % (Auto) 7.5 H Lymph # 0.7 L Seg Neutrophils % 83.7 H Seg Neuts % (Manual) Lymphocytes % (Manual) Seg Neutrophils # 7.8 H Seg Neutrophils # Man Lymphocytes # (Manual) PT INR POC ABG pCO2 VBG pH Sodium Potassium Chloride Carbon Dioxide BUN Creatinine Glucose POC Glucose 284 H 262 H Lactic Acid Calcium Ionized Calcium Phosphorus Magnesium AST Total Creatine Kinase C-Reactive Protein Total Protein Albumin TSH Free T4 PTH Intact Urine WBC (Auto) Urine Creatinine Salicylates Acetaminophen 11/12/18 11/12/18 04:51 09:54 WBC RBC Hgb Hct Plt Count Lymph % (Auto) [place] % (Auto) Lymph # Seg Neutrophils % Seg Neuts % (Manual) Lymphocytes % (Manual) Seg Neutrophils # Seg Neutrophils # Man Lymphocytes # (Manual) PT INR POC ABG pCO2 VBG pH Sodium Potassium Chloride 109.1 H Carbon Dioxide BUN 24 H Creatinine Glucose 334 H POC Glucose 288 H Lactic Acid Calcium 8.2 L Ionized Calcium Phosphorus Magnesium AST Total Creatine Kinase C-Reactive Protein Total Protein 5.5 L Albumin 1.8 L TSH Free T4 PTH Intact Urine WBC (Auto) Urine Creatinine Salicylates Acetaminophen
--- NOTE | 2018-11-12 13:36 | Progress Note ---
Assessment and Plan - Patient Problems (1) ARF (acute renal failure) Current Visit: Yes Status: Acute Plan to address problem: Mr. Good function with good urinary output and continue to monitor BUN and creatinine and urinary output (2) Acute alteration in mental status Current Visit: Yes Status: Acute (3) Acute kidney injury Current Visit: Yes Status: Acute Plan to address problem: Constinue to encourage hydration as tolerated (4) DKA (diabetic ketoacidoses) Current Visit: Yes Status: Acute Plan to address problem: Tachycardia now resolved and patient on sliding scale insulin plus long-acting insulin and continue to monitor her blood sugar every 6 hours. Will discontinue IV fluids described earlier in view of ongoing myocardial ischemia and DKAand hypernatremia now resolved we'll continue to increase free water flushes via NG tube. (5) DVT prophylaxis Current Visit: Yes Status: Acute (6) Hypernatremia Current Visit: Yes Status: Acute Plan to address problem: Sodium level improving gradually and continued to increase free water intake monitor urinary output and other electrolytes. Subjective Date of service: 11/12/18 Principal diagnosis: Ac hypoxemic resp failure; Severe sepsis; DKA; JAVY; Ac encephalopathy; UTI Interval history: : Covering For Dr Moreira Patient seen and examined and charts reviewed. Patient stated that he is doing better denied any chest pain or shortness of redness reported tolerating tube feeding via NG tube, stated that abdominal discomforts yesterday has subsided no fever was reported by the nursing staff. Patient requesting to have NG tube discontinued Objective - Exam Narrative Exam: GENERAL:[Patient is not in any acute distress resting comfortably in bed, nasogastric tube in place With this wound] HEENT: [Head examination showed normocephalic. Patient is not pale, not jaundiced, and not cyanosed.] [Mucous membrane is moist, pharynx is clear, no exudates or hemorrhage. Dentition is normal.] NECK: [Supple. Neck showed good range of motion. There is no adenopathy noted. No jugular venous distention and no thyromegaly.] [Neck auscultation showed no carotid bruit.] CHEST/LUNGS: [Good air exchange bilaterally. Clear to auscultation. There is no respiratory distress noted. Chest percussion normal, symmetrical chest movements with no chest wall tenderness.] HEART/CARDIOVASCULAR: [No murmur. Regular rate and rhythm. S1 and S2 only, no S3 gallop, no S4.] ABDOMEN: [Abdomen is soft, nontender. Patient has normal bowel sounds. There is no abdominal distention. Liver and spleen not palpably enlarged.] SKIN: [There is no rash. There is no edema. There is no diaphoresis.] NEURO: [The patient is awake, alert, and oriented. The patient is cooperative. The patient has no focal neurologic deficits. Cranial nerves 2-12 grossly normal, power is 5/5 in all the extremities tested. The patient has normal speech and gait.] MUSCULOSKELETAL: [There is no tenderness or deformity. There is no limitation range of motion. There is no evidence of acute injury.] EXTREMITIES: Palpable PERIPHERAL PULSES no pretibial edema, no finger or toe clubbing.] - Constitutional Vitals: Vital Signs - 12hr 11/12/18 11/12/18 11/12/18 02:00 03:00 04:00 Temperature 98 F Pulse Rate 95 H 95 H 92 H Pulse Rate [ 95 H From Monitor] Respiratory 19 Rate Blood Pressure 112/65 115/66 116/66 O2 Sat by Pulse 93 94 94 Oximetry 11/12/18 11/12/18 11/12/18 05:00 06:00 07:00 Temperature Pulse Rate 97 H 98 H 104 H Pulse Rate [ From Monitor] Respiratory Rate Blood Pressure 122/74 119/73 106/58 O2 Sat by Pulse 93 94 Oximetry 11/12/18 11/12/18 11/12/18 08:00 09:00 10:00 Temperature 98.5 F Pulse Rate 98 H 96 H 100 H Pulse Rate [ 98 H From Monitor] Respiratory 18 Rate Blood Pressure 116/61 111/57 112/66 O2 Sat by Pulse 98 93 Oximetry 11/12/18 11/12/18 11:00 12:00 Temperature 97.9 F Pulse Rate 94 H 93 H Pulse Rate [ 93 H From Monitor] Respiratory 20 Rate Blood Pressure 103/56 O2 Sat by Pulse 95 99 Oximetry - Labs CBC & Chem 7: 11/12/18 04:51 11/12/18 04:51 Labs: Abnormal lab results 11/11/18 11/11/18 11/12/18 Range/Units 17:10 22:19 00:29 RBC (3.65-5.03) M/mm3 Hgb (11.8-15.2) gm/dl Hct (35.5-45.6) % Plt Count (140-440) K/mm3 Lymph % (Auto) (13.4-35.0) % [place] % (Auto) (0.0-7.3) % Lymph # (1.2-5.4) K/mm3 Seg Neutrophils % (40.0-70.0) % Seg Neutrophils # (1.8-7.7) K/mm3 Chloride (98-107) mmol/L BUN (9-20) mg/dL Glucose (75-100) mg/dL POC Glucose 276 H 284 H 262 H (70-105) Calcium (8.4-10.2) mg/dL Total Protein (6.3-8.2) g/dL Albumin (3.9-5) g/dL 11/12/18 11/12/18 11/12/18 Range/Units 04:51 04:51 05:24 RBC 3.22 L (3.65-5.03) M/mm3 Hgb 9.7 L (11.8-15.2) gm/dl Hct 28.6 L (35.5-45.6) % Plt Count 454 H (140-440) K/mm3 Lymph % (Auto) 7.0 L (13.4-35.0) % [place] % (Auto) 7.5 H (0.0-7.3) % Lymph # 0.7 L (1.2-5.4) K/mm3 Seg Neutrophils % 83.7 H (40.0-70.0) % Seg Neutrophils # 7.8 H (1.8-7.7) K/mm3 Chloride 109.1 H (98-107) mmol/L BUN 24 H (9-20) mg/dL Glucose 334 H (75-100) mg/dL POC Glucose 335 H (70-105) Calcium 8.2 L (8.4-10.2) mg/dL Total Protein 5.5 L (6.3-8.2) g/dL Albumin 1.8 L (3.9-5) g/dL 11/12/18 11/12/18 Range/Units 09:54 13:16 RBC (3.65-5.03) M/mm3 Hgb (11.8-15.2) gm/dl Hct (35.5-45.6) % Plt Count (140-440) K/mm3 Lymph % (Auto) (13.4-35.0) % [place] % (Auto) (0.0-7.3) % Lymph # (1.2-5.4) K/mm3 Seg Neutrophils % (40.0-70.0) % Seg Neutrophils # (1.8-7.7) K/mm3 Chloride (98-107) mmol/L BUN (9-20) mg/dL Glucose (75-100) mg/dL POC Glucose 288 H 245 H (70-105) Calcium (8.4-10.2) mg/dL Total Protein (6.3-8.2) g/dL Albumin (3.9-5) g/dL
[2018-11-12] MEDS: LANTUS SUB-Q SCH (21:48)
[2018-11-13] MEDS: HumaLOG SUB-Q SCH ×6 (00:32→21:59)
[2018-11-13 04:32] LABS: Basophils % (Auto) 0.3 % (0.0-1.8); Eosinophils # (Auto) 0.1 K/mm3 (0.0-0.4); Eosinophils % (Auto) 1.1 % (0.0-4.3); Hemoglobin 9.6 gm/dl (11.8-15.2); Lymphocytes # (Auto) 0.7 K/mm3 (1.2-5.4); Lymphocytes % (Auto) 8.8 % (13.4-35.0); Mean Corpuscular HGB Conc 34 % (32-34); Mean Corpuscular Volume 89 fl (84-94); Monocytes # (Auto) 0.6 K/mm3 (0.0-0.8); Monocytes % (Auto) 7.6 % (0.0-7.3); Platelet Count 633 K/mm3 (140-440); Red Blood Count 3.15 M/mm3 (3.65-5.03); Red Cell Distribution Width 13.5 % (13.2-15.2)
[2018-11-13 04:57] LABS: Alanine Aminotransferase 18 units/L (7-56); Albumin 1.8 g/dL (3.9-5); BUN/Creatinine Ratio 33; Blood Urea Nitrogen 26 mg/dL (9-20); Hemolysis Index 4
[2018-11-13] MEDS: HEPARIN SUB-Q SCH ×2 (09:33→22:00)
[2018-11-13] MEDS: PREVACID SOLUTAB FEEDTUBE SCH ×2 (09:35→22:05)
[2018-11-13] MEDS: FLOMAX PO SCH (09:35)
[2018-11-13] MEDS: LEVAQUIN PO SCH (09:35)
[2018-11-13] MEDS: SODIUM CHLORIDE FLUSH SYRINGE 10 ML IV SCH ×2 (09:36→22:05)
--- NOTE | 2018-11-13 12:12 | Progress Note ---
Assessment and Plan Cultures/ID labs: Urine cultures negative Blood culture NGTD A/P: 53 yo M PMHx diabetes found down in his apartment in DKA with metabolic encephalopathy. Febrile and leukocytosis on admission, initially concerned for UTI. 1) Recurrent fevers - Currently off antibiotics, doing well. 2) JAVY - Improving. 3) DKA 4) Metabolic encephalopathy 5) Rhabdomylosis Recs: - continue off antibiotics Thank you for the consult, we will sign off MD [facility] C: [phone] O: [phone] F: [phone] Subjective Date of service: 11/13/18 Principal diagnosis: Ac hypoxemic resp failure; Severe sepsis; DKA; JAVY; Ac encephalopathy; UTI Interval history: No acute concerns at the present time. Fevers have resolved. Objective - Exam Narrative Exam: Constitutional: awake, no distress, following commands Head, Ears, Nose: Normocephalic, atraumatic. External ears, NG tube in place Eyes: Conjunctivae/corneas clear. No icterus. No ptosis. Neck: Supple, no meningeal signs Oral: poor dentition, moist mucous membranes Cardiovascular: S1, S2 normal. Normal rhythm Respiratory: Good air entry, clear to auscultation bilaterally GI: Soft, non-tender; bowel sounds normal. No peritoneal signs Musculoskeletal: No pedal edema, Skin: No rash or abscess Hem/Lymphatic: No palpable cervical or supraclavicular nodes. No lymphangitis Psych: no agitation Neurological: Moves all extremities, no focal defects - Constitutional Vitals: Vital Signs Temp Pulse Resp BP Pulse Ox 98.9 F 92 H 17 127/76 95 11/13/18 03:49 11/13/18 12:00 11/13/18 05:00 11/13/18 12:00 11/13/18 12:00 Temperature -Last 24 Hours Temperature 98.9 F Temperature 98.8 F Temperature 98.9 F Temperature 97.8 F Temperature 97.8 F - Labs CBC & Chem 7: 11/13/18 04:15 11/13/18 04:15 Labs: Abnormal lab results 11/12/18 11/12/18 11/12/18 Range/Units 05:24 13:16 16:41 RBC (3.65-5.03) M/mm3 Hgb (11.8-15.2) gm/dl Hct (35.5-45.6) % Plt Count (140-440) K/mm3 Lymph % (Auto) (13.4-35.0) % [place] % (Auto) (0.0-7.3) % Lymph # (1.2-5.4) K/mm3 Seg Neutrophils % (40.0-70.0) % Sodium (137-145) mmol/L Chloride (98-107) mmol/L BUN (9-20) mg/dL Glucose (75-100) mg/dL POC Glucose 335 H 245 H 343 H (70-105) Calcium (8.4-10.2) mg/dL Total Protein (6.3-8.2) g/dL Albumin (3.9-5) g/dL 11/12/18 11/13/18 11/13/18 Range/Units 20:58 00:21 04:15 RBC 3.15 L (3.65-5.03) M/mm3 Hgb 9.6 L (11.8-15.2) gm/dl Hct 28.0 L (35.5-45.6) % Plt Count 633 H (140-440) K/mm3 Lymph % (Auto) 8.8 L (13.4-35.0) % [place] % (Auto) 7.6 H (0.0-7.3) % Lymph # 0.7 L (1.2-5.4) K/mm3 Seg Neutrophils % 82.2 H (40.0-70.0) % Sodium (137-145) mmol/L Chloride (98-107) mmol/L BUN (9-20) mg/dL Glucose (75-100) mg/dL POC Glucose 403 H 391 H (70-105) Calcium (8.4-10.2) mg/dL Total Protein (6.3-8.2) g/dL Albumin (3.9-5) g/dL 11/13/18 11/13/18 11/13/18 Range/Units 04:15 04:32 09:08 RBC (3.65-5.03) M/mm3 Hgb (11.8-15.2) gm/dl Hct (35.5-45.6) % Plt Count (140-440) K/mm3 Lymph % (Auto) (13.4-35.0) % [place] % (Auto) (0.0-7.3) % Lymph # (1.2-5.4) K/mm3 Seg Neutrophils % (40.0-70.0) % Sodium 148 H (137-145) mmol/L Chloride 110.1 H (98-107) mmol/L BUN 26 H (9-20) mg/dL Glucose 337 H (75-100) mg/dL POC Glucose 350 H 285 H (70-105) Calcium 8.0 L (8.4-10.2) mg/dL Total Protein 5.7 L (6.3-8.2) g/dL Albumin 1.8 L (3.9-5) g/dL
--- NOTE | 2018-11-13 13:00 | Progress Note ---
Assessment and Plan Patient is sleeping. Resting on room air. O2 saturation 96% on room air. No complaint of chest pain, shortness of breath or cough. - Patient Problems (1) ARF (acute renal failure) Current Visit: Yes Status: Acute Plan to address problem: Management as per nephrology. (2) Acidosis Current Visit: Yes Status: Acute Plan to address problem: Improved. (3) DKA (diabetic ketoacidoses) Current Visit: Yes Status: Acute Plan to address problem: Improved. Management as per primary care. (4) Hypothyroidism Current Visit: Yes Status: Acute Qualifiers: Hypothyroidism type: unspecified Qualified Code(s): E03.9 - Hypothyroidism, unspecified Plan to address problem: Management as per primary care. Subjective Date of service: 11/13/18 Principal diagnosis: Ac hypoxemic resp failure; Severe sepsis; DKA; JAVY; Ac encephalopathy; UTI Interval history: Patient is sleeping. Resting on room air. O2 saturation 96% on room air. No complaint of chest pain, shortness of breath or cough. Objective Vital Signs - 12hr 11/13/18 11/13/18 11/13/18 01:00 02:00 03:00 Temperature Pulse Rate 85 88 87 Pulse Rate [ From Monitor] Respiratory Rate Blood Pressure 129/82 116/65 124/74 O2 Sat by Pulse 97 98 95 Oximetry 11/13/18 11/13/18 11/13/18 03:49 04:00 05:00 Temperature 98.9 F Pulse Rate 86 90 Pulse Rate [ 93 H From Monitor] Respiratory 17 17 Rate Blood Pressure 112/67 97/53 O2 Sat by Pulse 94 97 Oximetry 11/13/18 11/13/18 11/13/18 06:00 07:00 08:00 Temperature Pulse Rate 89 89 85 Pulse Rate [ From Monitor] Respiratory Rate Blood Pressure 129/82 118/73 120/73 O2 Sat by Pulse 95 96 97 Oximetry 11/13/18 11/13/18 11/13/18 09:00 09:12 10:00 Temperature Pulse Rate 93 H 91 H Pulse Rate [ From Monitor] Respiratory Rate Blood Pressure 124/76 136/87 O2 Sat by Pulse 94 94 95 Oximetry 11/13/18 11/13/18 11:00 12:00 Temperature Pulse Rate 91 H 92 H Pulse Rate [ From Monitor] Respiratory Rate Blood Pressure 131/76 127/76 O2 Sat by Pulse 96 95 Oximetry Constitutional: no acute distress, asleep Eyes: non-icteric Neck: supple, no lymphadenopathy Ascultation: Bilateral: clear Cardiovascular: regular rate and rhythm Gastrointestinal: normoactive bowel sounds Integumentary: normal Extremities: no cyanosis, no edema Neurologic: normal mental status, non-focal exam, pupils equal and round, CN II- XII normal Psychiatric: depressed CBC and BMP: 11/13/18 04:15 11/13/18 04:15 ABG, PT/INR, D-dimer: ABG POC ABG pH 7.432 (7.35-7.45) 11/05/18 17:08 POC ABG pCO2 32.3 (35-45) L 11/05/18 17:08 POC ABG HCO3 21.5 (22-26 mml/L) 11/05/18 17:08 POC ABG Total CO2 23 (23-27mmol/L) 11/05/18 17:08 POC ABG O2 Sat 85 11/05/18 17:08 PT/INR, D-dimer PT 15.6 Sec. (12.2-14.9) H 11/04/18 16:05 INR 1.27 (0.87-1.13) H 11/04/18 16:05 Abnormal lab findings: Abnormal Labs 11/04/18 11/04/18 11/04/18 15:23 15:35 16:05 WBC 12.6 H RBC Hgb Hct Plt Count Lymph % (Auto) [place] % (Auto) Lymph # Seg Neutrophils % Seg Neuts % (Manual) 84.0 H Lymphocytes % (Manual) 1.0 L Seg Neutrophils # Seg Neutrophils # Man 10.6 H Lymphocytes # (Manual) 0.1 L PT INR POC ABG pCO2 VBG pH Sodium Potassium Chloride Carbon Dioxide BUN Creatinine Glucose POC Glucose > 500 H Lactic Acid Calcium Ionized Calcium Phosphorus Magnesium AST Total Creatine Kinase C-Reactive Protein Total Protein Albumin TSH Free T4 PTH Intact Urine WBC (Auto) 12.0 H Urine Creatinine Salicylates Acetaminophen 11/04/18 11/04/18 11/04/18 16:05 16:05 16:05 WBC RBC Hgb Hct Plt Count Lymph % (Auto) [place] % (Auto) Lymph # Seg Neutrophils % Seg Neuts % (Manual) Lymphocytes % (Manual) Seg Neutrophils # Seg Neutrophils # Man Lymphocytes # (Manual) PT 15.6 H INR 1.27 H POC ABG pCO2 VBG pH Sodium 153 H Potassium 6.2 H* Chloride Carbon Dioxide 18 L BUN 200 H Creatinine 6.8 H Glucose 1088 H* POC Glucose Lactic Acid 2.80 H* Calcium 7.2 L Ionized Calcium Phosphorus Magnesium AST Total Creatine Kinase C-Reactive Protein Total Protein Albumin 3.1 L TSH Free T4 PTH Intact Urine WBC (Auto) Urine Creatinine Salicylates Acetaminophen 11/04/18 11/04/18 11/04/18 16:05 16:05 16:05 WBC RBC Hgb Hct Plt Count Lymph % (Auto) [place] % (Auto) Lymph # Seg Neutrophils % Seg Neuts % (Manual) Lymphocytes % (Manual) Seg Neutrophils # Seg Neutrophils # Man Lymphocytes # (Manual) PT INR POC ABG pCO2 VBG pH 7.245 L Sodium Potassium Chloride Carbon Dioxide BUN Creatinine Glucose POC Glucose Lactic Acid Calcium Ionized Calcium Phosphorus 13.80 H Magnesium 3.60 H AST Total Creatine Kinase C-Reactive Protein Total Protein Albumin TSH 0.169 L Free T4 0.68 L PTH Intact Urine WBC (Auto) Urine Creatinine Salicylates Acetaminophen 11/04/18 11/04/18 11/04/18 16:05 16:48 19:40 WBC RBC Hgb Hct Plt Count Lymph % (Auto) [place] % (Auto) Lymph # Seg Neutrophils % Seg Neuts % (Manual) Lymphocytes % (Manual) Seg Neutrophils # Seg Neutrophils # Man Lymphocytes # (Manual) PT INR POC ABG pCO2 VBG pH Sodium Potassium Chloride Carbon Dioxide BUN Creatinine Glucose POC Glucose > 500 H 458 H Lactic Acid Calcium Ionized Calcium Phosphorus Magnesium AST Total Creatine Kinase 1857 H C-Reactive Protein Total Protein Albumin TSH Free T4 PTH Intact Urine WBC (Auto) Urine Creatinine Salicylates Acetaminophen 11/04/18 11/04/18 11/04/18 20:29 20:29 20:29 WBC RBC Hgb Hct Plt Count Lymph % (Auto) [place] % (Auto) Lymph # Seg Neutrophils % Seg Neuts % (Manual) Lymphocytes % (Manual) Seg Neutrophils # Seg Neutrophils # Man Lymphocytes # (Manual) PT INR POC ABG pCO2 VBG pH Sodium 163 H* D Potassium Chloride 121.4 H Carbon Dioxide 21 L BUN 166 H Creatinine 5.6 H Glucose 513 H* POC Glucose Lactic Acid 3.30 H* 3.30 H* Calcium 6.4 L Ionized Calcium Phosphorus Magnesium AST Total Creatine Kinase C-Reactive Protein Total Protein Albumin TSH Free T4 PTH Intact Urine WBC (Auto) Urine Creatinine Salicylates Acetaminophen 11/04/18 11/04/18 11/04/18 20:55 21:03 22:00 WBC RBC Hgb Hct Plt Count Lymph % (Auto) [place] % (Auto) Lymph # Seg Neutrophils % Seg Neuts % (Manual) Lymphocytes % (Manual) Seg Neutrophils # Seg Neutrophils # Man Lymphocytes # (Manual) PT INR POC ABG pCO2 VBG pH Sodium Potassium Chloride Carbon Dioxide BUN Creatinine Glucose POC Glucose 496 H Lactic Acid 3.60 H* Calcium Ionized Calcium Phosphorus Magnesium AST Total Creatine Kinase C-Reactive Protein Total Protein Albumin TSH Free T4 PTH Intact Urine WBC (Auto) Urine Creatinine 58.1 H Salicylates Acetaminophen 11/04/18 11/04/18 11/04/18 22:04 23:07 23:47 WBC RBC Hgb Hct Plt Count Lymph % (Auto) [place] % (Auto) Lymph # Seg Neutrophils % Seg Neuts % (Manual) Lymphocytes % (Manual) Seg Neutrophils # Seg Neutrophils # Man Lymphocytes # (Manual) PT INR POC ABG pCO2 VBG pH Sodium 170 H* Potassium Chloride 127.1 H Carbon Dioxide BUN 164 H Creatinine 5.2 H Glucose 213 H POC Glucose 357 H 306 H Lactic Acid Calcium 6.5 L Ionized Calcium Phosphorus Magnesium AST Total Creatine Kinase C-Reactive Protein Total Protein Albumin TSH Free T4 PTH Intact Urine WBC (Auto) Urine Creatinine Salicylates Acetaminophen 11/04/18 11/05/18 11/05/18 23:47 00:04 00:09 WBC RBC Hgb Hct Plt Count Lymph % (Auto) [place] % (Auto) Lymph # Seg Neutrophils % Seg Neuts % (Manual) Lymphocytes % (Manual) Seg Neutrophils # Seg Neutrophils # Man Lymphocytes # (Manual) PT INR POC ABG pCO2 VBG pH Sodium 163 H* Potassium Chloride 127.5 H Carbon Dioxide BUN 117 H Creatinine 3.3 H Glucose 235 H POC Glucose 219 H Lactic Acid 3.20 H* Calcium 6.8 L Ionized Calcium Phosphorus Magnesium AST Total Creatine Kinase C-Reactive Protein Total Protein Albumin TSH Free T4 PTH Intact Urine WBC (Auto) Urine Creatinine Salicylates Acetaminophen 11/05/18 11/05/18 11/05/18 00:59 03:13 03:52 WBC RBC Hgb Hct Plt Count Lymph % (Auto) [place] % (Auto) Lymph # Seg Neutrophils % Seg Neuts % (Manual) Lymphocytes % (Manual) Seg Neutrophils # Seg Neutrophils # Man Lymphocytes # (Manual) PT INR POC ABG pCO2 VBG pH Sodium Potassium Chloride Carbon Dioxide BUN Creatinine Glucose POC Glucose 204 H 124 H Lactic Acid Calcium Ionized Calcium Phosphorus Magnesium AST Total Creatine Kinase 1680 H C-Reactive Protein Total Protein Albumin TSH Free T4 PTH Intact Urine WBC (Auto) Urine Creatinine Salicylates Acetaminophen 11/05/18 11/05/18 11/05/18 03:52 04:25 05:11 WBC RBC Hgb Hct Plt Count Lymph % (Auto) [place] % (Auto) Lymph # Seg Neutrophils % Seg Neuts % (Manual) Lymphocytes % (Manual) Seg Neutrophils # Seg Neutrophils # Man Lymphocytes # (Manual) PT INR POC ABG pCO2 VBG pH Sodium 169 H* Potassium Chloride 126.2 H Carbon Dioxide BUN 156 H Creatinine 4.7 H Glucose 128 H POC Glucose 150 H 173 H Lactic Acid Calcium 6.3 L Ionized Calcium Phosphorus Magnesium AST Total Creatine Kinase C-Reactive Protein Total Protein Albumin TSH Free T4 PTH Intact Urine WBC (Auto) Urine Creatinine Salicylates Acetaminophen 11/05/18 11/05/18 11/05/18 06:05 06:58 07:48 WBC RBC Hgb Hct Plt Count Lymph % (Auto) [place] % (Auto) Lymph # Seg Neutrophils % Seg Neuts % (Manual) Lymphocytes % (Manual) Seg Neutrophils # Seg Neutrophils # Man Lymphocytes # (Manual) PT INR POC ABG pCO2 VBG pH Sodium Potassium Chloride Carbon Dioxide BUN Creatinine Glucose POC Glucose 136 H 152 H 177 H Lactic Acid Calcium Ionized Calcium Phosphorus Magnesium AST Total Creatine Kinase C-Reactive Protein Total Protein Albumin TSH Free T4 PTH Intact Urine WBC (Auto) Urine Creatinine Salicylates Acetaminophen 11/05/18 11/05/18 11/05/18 08:21 08:21 08:23 WBC RBC Hgb Hct Plt Count Lymph % (Auto) [place] % (Auto) Lymph # Seg Neutrophils % Seg Neuts % (Manual) Lymphocytes % (Manual) Seg Neutrophils # Seg Neutrophils # Man Lymphocytes # (Manual) PT INR POC ABG pCO2 VBG pH Sodium 171 H* Potassium Chloride 128.9 H Carbon Dioxide BUN 149 H Creatinine 4.5 H Glucose 159 H POC Glucose 157 H Lactic Acid Calcium 6.7 L Ionized Calcium Phosphorus Magnesium AST Total Creatine Kinase C-Reactive Protein Total Protein Albumin TSH Free T4 PTH Intact 119.3 H Urine WBC (Auto) Urine Creatinine Salicylates Acetaminophen 11/05/18 11/05/18 11/05/18 10:21 11:12 12:37 WBC RBC Hgb Hct Plt Count Lymph % (Auto) [place] % (Auto) Lymph # Seg Neutrophils % Seg Neuts % (Manual) Lymphocytes % (Manual) Seg Neutrophils # Seg Neutrophils # Man Lymphocytes # (Manual) PT INR POC ABG pCO2 VBG pH Sodium Potassium Chloride Carbon Dioxide BUN Creatinine Glucose POC Glucose 171 H 155 H 145 H Lactic Acid Calcium Ionized Calcium Phosphorus Magnesium AST Total Creatine Kinase C-Reactive Protein Total Protein Albumin TSH Free T4 PTH Intact Urine WBC (Auto) Urine Creatinine Salicylates Acetaminophen 11/05/18 11/05/18 11/05/18 13:24 13:47 14:42 WBC RBC Hgb Hct Plt Count Lymph % (Auto) [place] % (Auto) Lymph # Seg Neutrophils % Seg Neuts % (Manual) Lymphocytes % (Manual) Seg Neutrophils # Seg Neutrophils # Man Lymphocytes # (Manual) PT INR POC ABG pCO2 VBG pH Sodium 167 H* Potassium Chloride 131.6 H Carbon Dioxide BUN 130 H Creatinine 3.8 H Glucose 136 H POC Glucose 137 H 133 H Lactic Acid Calcium 6.4 L Ionized Calcium Phosphorus Magnesium AST Total Creatine Kinase C-Reactive Protein Total Protein Albumin TSH Free T4 PTH Intact Urine WBC (Auto) Urine Creatinine Salicylates Acetaminophen 11/05/18 11/05/18 11/05/18 16:55 17:08 18:14 WBC RBC Hgb Hct Plt Count Lymph % (Auto) [place] % (Auto) Lymph # Seg Neutrophils % Seg Neuts % (Manual) Lymphocytes % (Manual) Seg Neutrophils # Seg Neutrophils # Man Lymphocytes # (Manual) PT INR POC ABG pCO2 32.3 L VBG pH Sodium Potassium Chloride Carbon Dioxide BUN Creatinine Glucose POC Glucose 194 H 195 H Lactic Acid Calcium Ionized Calcium Phosphorus Magnesium AST Total Creatine Kinase C-Reactive Protein Total Protein Albumin TSH Free T4 PTH Intact Urine WBC (Auto) Urine Creatinine Salicylates Acetaminophen 11/05/18 11/05/18 11/05/18 18:35 18:35 18:35 WBC RBC Hgb Hct Plt Count Lymph % (Auto) [place] % (Auto) Lymph # Seg Neutrophils % Seg Neuts % (Manual) Lymphocytes % (Manual) Seg Neutrophils # Seg Neutrophils # Man Lymphocytes # (Manual) PT INR POC ABG pCO2 VBG pH Sodium Potassium Chloride Carbon Dioxide BUN Creatinine Glucose POC Glucose Lactic Acid Calcium Ionized Calcium Phosphorus Magnesium AST Total Creatine Kinase C-Reactive Protein 19.50 H Total Protein Albumin TSH Free T4 PTH Intact Urine WBC (Auto) Urine Creatinine Salicylates < 0.3 L Acetaminophen < 5.0 L 11/05/18 11/06/18 11/06/18 21:09 01:36 04:50 WBC RBC Hgb 11.3 L Hct 32.8 L D Plt Count 110 L Lymph % (Auto) [place] % (Auto) Lymph # Seg Neutrophils % Seg Neuts % (Manual) Lymphocytes % (Manual) Seg Neutrophils # Seg Neutrophils # Man Lymphocytes # (Manual) PT INR POC ABG pCO2 VBG pH Sodium Potassium Chloride Carbon Dioxide BUN Creatinine Glucose POC Glucose 250 H 289 H Lactic Acid Calcium Ionized Calcium Phosphorus Magnesium AST Total Creatine Kinase C-Reactive Protein Total Protein Albumin TSH Free T4 PTH Intact Urine WBC (Auto) Urine Creatinine Salicylates Acetaminophen 11/06/18 11/06/18 11/06/18 04:50 04:50 05:14 WBC RBC Hgb Hct Plt Count Lymph % (Auto) [place] % (Auto) Lymph # Seg Neutrophils % Seg Neuts % (Manual) Lymphocytes % (Manual) Seg Neutrophils # Seg Neutrophils # Man Lymphocytes # (Manual) PT INR POC ABG pCO2 VBG pH Sodium 165 H* 164 H* Potassium Chloride 127.4 H Carbon Dioxide BUN 113 H Creatinine 3.2 H Glucose 208 H POC Glucose 215 H Lactic Acid Calcium 6.8 L Ionized Calcium Phosphorus Magnesium AST 55 H Total Creatine Kinase C-Reactive Protein Total Protein 5.2 L D Albumin 2.3 L TSH Free T4 PTH Intact Urine WBC (Auto) Urine Creatinine Salicylates Acetaminophen 11/06/18 11/06/18 11/06/18 07:50 08:50 12:16 WBC RBC Hgb Hct Plt Count Lymph % (Auto) [place] % (Auto) Lymph # Seg Neutrophils % Seg Neuts % (Manual) Lymphocytes % (Manual) Seg Neutrophils # Seg Neutrophils # Man Lymphocytes # (Manual) PT INR POC ABG pCO2 VBG pH Sodium 161 H* Potassium Chloride 126.0 H Carbon Dioxide BUN 111 H Creatinine 3.0 H Glucose 187 H POC Glucose 239 H 198 H Lactic Acid Calcium 7.0 L Ionized Calcium Phosphorus Magnesium AST Total Creatine Kinase C-Reactive Protein Total Protein Albumin TSH Free T4 PTH Intact Urine WBC (Auto) Urine Creatinine Salicylates Acetaminophen 07/11/06/18 11/06/18 15:42 15:42 17:59 WBC RBC Hgb Hct Plt Count Lymph % (Auto) [place] % (Auto) Lymph # Seg Neutrophils % Seg Neuts % (Manual) Lymphocytes % (Manual) Seg Neutrophils # Seg Neutrophils # Man Lymphocytes # (Manual) PT INR POC ABG pCO2 VBG pH Sodium 162 H* Potassium Chloride 127.3 H Carbon Dioxide BUN 98 H Creatinine 2.7 H Glucose 195 H POC Glucose 225 H Lactic Acid Calcium 7.1 L Ionized Calcium 4.4 L Phosphorus Magnesium AST Total Creatine Kinase C-Reactive Protein Total Protein Albumin TSH Free T4 PTH Intact Urine WBC (Auto) Urine Creatinine Salicylates Acetaminophen 11/06/18 11/06/18 11/06/18 21:21 21:24 21:24 WBC RBC Hgb 11.0 L Hct 33.4 L Plt Count Lymph % (Auto) [place] % (Auto) Lymph # Seg Neutrophils % Seg Neuts % (Manual) Lymphocytes % (Manual) Seg Neutrophils # Seg Neutrophils # Man Lymphocytes # (Manual) PT INR POC ABG pCO2 VBG pH Sodium Potassium Chloride Carbon Dioxide BUN Creatinine Glucose POC Glucose 272 H Lactic Acid Calcium Ionized Calcium Phosphorus Magnesium AST Total Creatine Kinase 3538 H C-Reactive Protein Total Protein Albumin TSH Free T4 PTH Intact Urine WBC (Auto) Urine Creatinine Salicylates Acetaminophen 11/07/18 11/07/18 11/07/18 02:01 04:13 04:13 WBC RBC Hgb 11.4 L Hct 33.8 L Plt Count 103 L Lymph % (Auto) [place] % (Auto) Lymph # Seg Neutrophils % Seg Neuts % (Manual) 83.0 H Lymphocytes % (Manual) 6.0 L Seg Neutrophils # Seg Neutrophils # Man Lymphocytes # (Manual) 0.6 L PT INR POC ABG pCO2 VBG pH Sodium 161 H* Potassium Chloride 125.8 H Carbon Dioxide BUN 80 H Creatinine 2.4 H Glucose 246 H POC Glucose 282 H Lactic Acid Calcium 7.4 L Ionized Calcium Phosphorus Magnesium 2.50 H AST 106 H Total Creatine Kinase C-Reactive Protein Total Protein 5.7 L Albumin 2.0 L TSH Free T4 PTH Intact Urine WBC (Auto) Urine Creatinine Salicylates Acetaminophen 11/07/18 11/07/18 11/07/18 04:13 05:17 09:15 WBC RBC Hgb Hct Plt Count Lymph % (Auto) [place] % (Auto) Lymph # Seg Neutrophils % Seg Neuts % (Manual) Lymphocytes % (Manual) Seg Neutrophils # Seg Neutrophils # Man Lymphocytes # (Manual) PT INR POC ABG pCO2 VBG pH Sodium Potassium Chloride Carbon Dioxide BUN Creatinine Glucose POC Glucose 256 H 287 H Lactic Acid Calcium Ionized Calcium Phosphorus Magnesium AST Total Creatine Kinase 2918 H C-Reactive Protein Total Protein Albumin TSH Free T4 PTH Intact Urine WBC (Auto) Urine Creatinine Salicylates Acetaminophen 11/07/18 11/07/18 11/07/18 13:27 15:10 16:38 WBC RBC Hgb 10.2 L Hct 31.2 L Plt Count Lymph % (Auto) [place] % (Auto) Lymph # Seg Neutrophils % Seg Neuts % (Manual) Lymphocytes % (Manual) Seg Neutrophils # Seg Neutrophils # Man Lymphocytes # (Manual) PT INR POC ABG pCO2 VBG pH Sodium Potassium Chloride Carbon Dioxide BUN Creatinine Glucose POC Glucose 281 H 284 H Lactic Acid Calcium Ionized Calcium Phosphorus Magnesium AST Total Creatine Kinase C-Reactive Protein Total Protein Albumin TSH Free T4 PTH Intact Urine WBC (Auto) Urine Creatinine Salicylates Acetaminophen 11/07/18 11/07/18 11/08/18 21:08 21:41 01:24 WBC RBC Hgb 10.2 L Hct 30.8 L Plt Count Lymph % (Auto) [place] % (Auto) Lymph # Seg Neutrophils % Seg Neuts % (Manual) Lymphocytes % (Manual) Seg Neutrophils # Seg Neutrophils # Man Lymphocytes # (Manual) PT INR POC ABG pCO2 VBG pH Sodium Potassium Chloride Carbon Dioxide BUN Creatinine Glucose POC Glucose 349 H 363 H Lactic Acid Calcium Ionized Calcium Phosphorus Magnesium AST Total Creatine Kinase C-Reactive Protein Total Protein Albumin TSH Free T4 PTH Intact Urine WBC (Auto) Urine Creatinine Salicylates Acetaminophen 11/08/18 11/08/18 11/08/18 04:30 04:30 04:30 WBC RBC 3.26 L Hgb 10.2 L Hct 29.9 L Plt Count 103 L Lymph % (Auto) 7.7 L [place] % (Auto) 7.5 H Lymph # 0.8 L Seg Neutrophils % 83.6 H Seg Neuts % (Manual) Lymphocytes % (Manual) Seg Neutrophils # 8.6 H Seg Neutrophils # Man Lymphocytes # (Manual) PT INR POC ABG pCO2 VBG pH Sodium 157 H Potassium 3.5 L Chloride 119.8 H Carbon Dioxide BUN 52 H Creatinine 1.9 H Glucose 244 H POC Glucose Lactic Acid Calcium 7.3 L Ionized Calcium Phosphorus Magnesium AST 88 H Total Creatine Kinase 1829 H C-Reactive Protein Total Protein 4.4 L D Albumin 2.3 L TSH Free T4 PTH Intact Urine WBC (Auto) Urine Creatinine Salicylates Acetaminophen 11/08/18 11/08/18 11/08/18 05:34 09:12 14:20 WBC RBC Hgb Hct Plt Count Lymph % (Auto) [place] % (Auto) Lymph # Seg Neutrophils % Seg Neuts % (Manual) Lymphocytes % (Manual) Seg Neutrophils # Seg Neutrophils # Man Lymphocytes # (Manual) PT INR POC ABG pCO2 VBG pH Sodium Potassium Chloride Carbon Dioxide BUN Creatinine Glucose POC Glucose 250 H 299 H 379 H Lactic Acid Calcium Ionized Calcium Phosphorus Magnesium AST Total Creatine Kinase C-Reactive Protein Total Protein Albumin TSH Free T4 PTH Intact Urine WBC (Auto) Urine Creatinine Salicylates Acetaminophen 11/08/18 11/08/18 11/08/18 14:40 17:14 21:59 WBC RBC Hgb 10.2 L Hct 30.8 L Plt Count Lymph % (Auto) [place] % (Auto) Lymph # Seg Neutrophils % Seg Neuts % (Manual) Lymphocytes % (Manual) Seg Neutrophils # Seg Neutrophils # Man Lymphocytes # (Manual) PT INR POC ABG pCO2 VBG pH Sodium Potassium Chloride Carbon Dioxide BUN Creatinine Glucose POC Glucose 356 H 385 H Lactic Acid Calcium Ionized Calcium Phosphorus Magnesium AST Total Creatine Kinase C-Reactive Protein Total Protein Albumin TSH Free T4 PTH Intact Urine WBC (Auto) Urine Creatinine Salicylates Acetaminophen 11/09/18 11/09/18 11/09/18 00:57 04:33 04:33 WBC RBC 3.20 L Hgb 9.7 L Hct 29.3 L Plt Count 117 L Lymph % (Auto) 8.2 L [place] % (Auto) 7.4 H Lymph # 0.8 L Seg Neutrophils % 83.2 H Seg Neuts % (Manual) Lymphocytes % (Manual) Seg Neutrophils # Seg Neutrophils # Man Lymphocytes # (Manual) PT INR POC ABG pCO2 VBG pH Sodium 148 H D Potassium Chloride 113.2 H Carbon Dioxide BUN 37 H Creatinine Glucose 252 H POC Glucose 362 H Lactic Acid Calcium 7.8 L Ionized Calcium Phosphorus 1.90 L Magnesium AST 52 H Total Creatine Kinase C-Reactive Protein Total Protein 5.3 L D Albumin 1.6 L TSH Free T4 PTH Intact Urine WBC (Auto) Urine Creatinine Salicylates Acetaminophen 11/09/18 11/09/18 11/09/18 05:24 09:15 13:12 WBC RBC Hgb Hct Plt Count Lymph % (Auto) [place] % (Auto) Lymph # Seg Neutrophils % Seg Neuts % (Manual) Lymphocytes % (Manual) Seg Neutrophils # Seg Neutrophils # Man Lymphocytes # (Manual) PT INR POC ABG pCO2 VBG pH Sodium Potassium Chloride Carbon Dioxide BUN Creatinine Glucose POC Glucose 304 H 297 H 300 H Lactic Acid Calcium Ionized Calcium Phosphorus Magnesium AST Total Creatine Kinase C-Reactive Protein Total Protein Albumin TSH Free T4 PTH Intact Urine WBC (Auto) Urine Creatinine Salicylates Acetaminophen 11/09/18 11/09/18 11/10/18 17:35 21:09 00:55 WBC RBC Hgb Hct Plt Count Lymph % (Auto) [place] % (Auto) Lymph # Seg Neutrophils % Seg Neuts % (Manual) Lymphocytes % (Manual) Seg Neutrophils # Seg Neutrophils # Man Lymphocytes # (Manual) PT INR POC ABG pCO2 VBG pH Sodium Potassium Chloride Carbon Dioxide BUN Creatinine Glucose POC Glucose 262 H 213 H 283 H Lactic Acid Calcium Ionized Calcium Phosphorus Magnesium AST Total Creatine Kinase C-Reactive Protein Total Protein Albumin TSH Free T4 PTH Intact Urine WBC (Auto) Urine Creatinine Salicylates Acetaminophen 11/10/18 11/10/18 11/10/18 04:46 04:46 04:46 WBC RBC 3.17 L Hgb 9.6 L Hct 28.7 L Plt Count Lymph % (Auto) 10.3 L [place] % (Auto) 10.0 H Lymph # 0.8 L Seg Neutrophils % 78.6 H Seg Neuts % (Manual) Lymphocytes % (Manual) Seg Neutrophils # Seg Neutrophils # Man Lymphocytes # (Manual) PT INR POC ABG pCO2 VBG pH Sodium 151 H Potassium 3.5 L Chloride 115.1 H Carbon Dioxide BUN 30 H Creatinine Glucose 183 H POC Glucose Lactic Acid Calcium 7.8 L Ionized Calcium Phosphorus Magnesium AST Total Creatine Kinase 408 H C-Reactive Protein Total Protein 5.7 L Albumin 1.8 L TSH Free T4 PTH Intact Urine WBC (Auto) Urine Creatinine Salicylates Acetaminophen 11/10/18 11/10/18 11/10/18 05:12 08:06 11:32 WBC RBC Hgb Hct Plt Count Lymph % (Auto) [place] % (Auto) Lymph # Seg Neutrophils % Seg Neuts % (Manual) Lymphocytes % (Manual) Seg Neutrophils # Seg Neutrophils # Man Lymphocytes # (Manual) PT INR POC ABG pCO2 VBG pH Sodium Potassium Chloride Carbon Dioxide BUN Creatinine Glucose POC Glucose 201 H 195 H 302 H Lactic Acid Calcium Ionized Calcium Phosphorus Magnesium AST Total Creatine Kinase C-Reactive Protein Total Protein Albumin TSH Free T4 PTH Intact Urine WBC (Auto) Urine Creatinine Salicylates Acetaminophen 11/10/18 11/10/18 11/11/18 15:55 21:44 02:06 WBC RBC Hgb Hct Plt Count Lymph % (Auto) [place] % (Auto) Lymph # Seg Neutrophils % Seg Neuts % (Manual) Lymphocytes % (Manual) Seg Neutrophils # Seg Neutrophils # Man Lymphocytes # (Manual) PT INR POC ABG pCO2 VBG pH Sodium Potassium Chloride Carbon Dioxide BUN Creatinine Glucose POC Glucose 292 H 348 H 370 H Lactic Acid Calcium Ionized Calcium Phosphorus Magnesium AST Total Creatine Kinase C-Reactive Protein Total Protein Albumin TSH Free T4 PTH Intact Urine WBC (Auto) Urine Creatinine Salicylates Acetaminophen 11/11/18 11/11/18 11/11/18 04:42 04:42 05:20 WBC RBC 3.13 L Hgb 9.5 L Hct 28.2 L Plt Count Lymph % (Auto) [place] % (Auto) Lymph # Seg Neutrophils % Seg Neuts % (Manual) 91.0 H Lymphocytes % (Manual) 4.0 L Seg Neutrophils # Seg Neutrophils # Man 8.6 H Lymphocytes # (Manual) 0.4 L PT INR POC ABG pCO2 VBG pH Sodium Potassium Chloride 109.6 H Carbon Dioxide BUN 28 H Creatinine Glucose 263 H POC Glucose 272 H Lactic Acid Calcium 7.9 L Ionized Calcium Phosphorus Magnesium AST Total Creatine Kinase C-Reactive Protein Total Protein 5.6 L Albumin 1.6 L TSH Free T4 PTH Intact Urine WBC (Auto) Urine Creatinine Salicylates Acetaminophen 11/11/18 11/11/18 11/11/18 08:30 13:09 17:10 WBC RBC Hgb Hct Plt Count Lymph % (Auto) [place] % (Auto) Lymph # Seg Neutrophils % Seg Neuts % (Manual) Lymphocytes % (Manual) Seg Neutrophils # Seg Neutrophils # Man Lymphocytes # (Manual) PT INR POC ABG pCO2 VBG pH Sodium Potassium Chloride Carbon Dioxide BUN Creatinine Glucose POC Glucose 290 H 340 H 276 H Lactic Acid Calcium Ionized Calcium Phosphorus Magnesium AST Total Creatine Kinase C-Reactive Protein Total Protein Albumin TSH Free T4 PTH Intact Urine WBC (Auto) Urine Creatinine Salicylates Acetaminophen 11/11/18 11/12/18 11/12/18 22:19 00:29 04:51 WBC RBC 3.22 L Hgb 9.7 L Hct 28.6 L Plt Count 454 H Lymph % (Auto) 7.0 L [place] % (Auto) 7.5 H Lymph # 0.7 L Seg Neutrophils % 83.7 H Seg Neuts % (Manual) Lymphocytes % (Manual) Seg Neutrophils # 7.8 H Seg Neutrophils # Man Lymphocytes # (Manual) PT INR POC ABG pCO2 VBG pH Sodium Potassium Chloride Carbon Dioxide BUN Creatinine Glucose POC Glucose 284 H 262 H Lactic Acid Calcium Ionized Calcium Phosphorus Magnesium AST Total Creatine Kinase C-Reactive Protein Total Protein Albumin TSH Free T4 PTH Intact Urine WBC (Auto) Urine Creatinine Salicylates Acetaminophen 11/12/18 11/12/18 11/12/18 04:51 05:24 09:54 WBC RBC Hgb Hct Plt Count Lymph % (Auto) [place] % (Auto) Lymph # Seg Neutrophils % Seg Neuts % (Manual) Lymphocytes % (Manual) Seg Neutrophils # Seg Neutrophils # Man Lymphocytes # (Manual) PT INR POC ABG pCO2 VBG pH Sodium Potassium Chloride 109.1 H Carbon Dioxide BUN 24 H Creatinine Glucose 334 H POC Glucose 335 H 288 H Lactic Acid Calcium 8.2 L Ionized Calcium Phosphorus Magnesium AST Total Creatine Kinase C-Reactive Protein Total Protein 5.5 L Albumin 1.8 L TSH Free T4 PTH Intact Urine WBC (Auto) Urine Creatinine Salicylates Acetaminophen 11/12/18 11/12/18 11/12/18 13:16 16:41 20:58 WBC RBC Hgb Hct Plt Count Lymph % (Auto) [place] % (Auto) Lymph # Seg Neutrophils % Seg Neuts % (Manual) Lymphocytes % (Manual) Seg Neutrophils # Seg Neutrophils # Man Lymphocytes # (Manual) PT INR POC ABG pCO2 VBG pH Sodium Potassium Chloride Carbon Dioxide BUN Creatinine Glucose POC Glucose 245 H 343 H 403 H Lactic Acid Calcium Ionized Calcium Phosphorus Magnesium AST Total Creatine Kinase C-Reactive Protein Total Protein Albumin TSH Free T4 PTH Intact Urine WBC (Auto) Urine Creatinine Salicylates Acetaminophen 11/13/18 11/13/18 11/13/18 00:21 04:15 04:15 WBC RBC 3.15 L Hgb 9.6 L Hct 28.0 L Plt Count 633 H Lymph % (Auto) 8.8 L [place] % (Auto) 7.6 H Lymph # 0.7 L Seg Neutrophils % 82.2 H Seg Neuts % (Manual) Lymphocytes % (Manual) Seg Neutrophils # Seg Neutrophils # Man Lymphocytes # (Manual) PT INR POC ABG pCO2 VBG pH Sodium 148 H Potassium Chloride 110.1 H Carbon Dioxide BUN 26 H Creatinine Glucose 337 H POC Glucose 391 H Lactic Acid Calcium 8.0 L Ionized Calcium Phosphorus Magnesium AST Total Creatine Kinase C-Reactive Protein Total Protein 5.7 L Albumin 1.8 L TSH Free T4 PTH Intact Urine WBC (Auto) Urine Creatinine Salicylates Acetaminophen 11/13/18 11/13/18 04:32 09:08 WBC RBC Hgb Hct Plt Count Lymph % (Auto) [place] % (Auto) Lymph # Seg Neutrophils % Seg Neuts % (Manual) Lymphocytes % (Manual) Seg Neutrophils # Seg Neutrophils # Man Lymphocytes # (Manual) PT INR POC ABG pCO2 VBG pH Sodium Potassium Chloride Carbon Dioxide BUN Creatinine Glucose POC Glucose 350 H 285 H Lactic Acid Calcium Ionized Calcium Phosphorus Magnesium AST Total Creatine Kinase C-Reactive Protein Total Protein Albumin TSH Free T4 PTH Intact Urine WBC (Auto) Urine Creatinine Salicylates Acetaminophen
--- NOTE | 2018-11-13 13:47 | Progress Note ---
Assessment and Plan 1. Acute kidney injury: Vasomotor JAVY in the setting of volume depletion and DKA. Renal US was negative for hydro. Renal function is better. Monitor renal function. Avoid nephrotoxic agents. Meds dosage based on GFR. 2. FEN: Hyperkalemia, improved. Hypernatremia, sodium level is much better, continue water flushes. Metabolic acidosis, improved. Monitor lytes. 3. DKA: Improved. 4. Hyperglycemia. 5. Sepsis: Treated. 6. Metabolic Encephalopathy: Improving. Subjective Date of service: 11/13/18 Principal diagnosis: Ac hypoxemic resp failure; Severe sepsis; DKA; JAVY; Ac encephalopathy; UTI Interval history: Patient was seen and examined at the bedside. Objective - Vital Signs Vital signs: Vital Signs - 12hr 11/13/18 11/13/18 11/13/18 02:00 03:00 03:49 Temperature 98.9 F Pulse Rate 88 87 Pulse Rate [ From Monitor] Respiratory Rate Blood Pressure 116/65 124/74 O2 Sat by Pulse 98 95 Oximetry 11/13/18 11/13/18 11/13/18 04:00 05:00 06:00 Temperature Pulse Rate 86 90 89 Pulse Rate [ 93 H From Monitor] Respiratory 17 17 Rate Blood Pressure 112/67 97/53 129/82 O2 Sat by Pulse 94 97 95 Oximetry 11/13/18 11/13/18 11/13/18 07:00 08:00 09:00 Temperature Pulse Rate 89 85 93 H Pulse Rate [ From Monitor] Respiratory Rate Blood Pressure 118/73 120/73 124/76 O2 Sat by Pulse 96 97 94 Oximetry 11/13/18 11/13/18 11/13/18 09:12 10:00 11:00 Temperature Pulse Rate 91 H 91 H Pulse Rate [ From Monitor] Respiratory Rate Blood Pressure 136/87 131/76 O2 Sat by Pulse 94 95 96 Oximetry 11/13/18 12:00 Temperature 97.7 F Pulse Rate 92 H Pulse Rate [ From Monitor] Respiratory Rate Blood Pressure 127/76 O2 Sat by Pulse 95 Oximetry - General Appearance General appearance: well-developed, appears stated age, other (no distress, NG tube noted) EENT: ATNC, PERRL, hearing intact, vision intact Neck: supple Respiratory: Present: Clear to Ascultation Cardiology: regular, S1S2, no murmurs Gastrointestinal: normoactive bowel sounds, no tenderness, no distended Integumentary: no rash, warm and dry Neurologic: no focal deficit, no asterixis, alert and oriented x3 Musculoskeletal: other (no edema) - Lab 11/13/18 04:15 11/13/18 04:15 Most recent lab results Calcium 8.0 mg/dL (8.4-10.2) L 11/13/18 04:15 Phosphorus 3.70 mg/dL (2.5-4.5) 11/13/18 04:15 Magnesium 2.50 mg/dL (1.7-2.3) H 11/07/18 04:13 58.1 mg/dL (0.1-20.0) H 11/04/18 20:55 34 mmol/L 11/04/18 20:55 Medications & Allergies - Medications Allergies/Adverse Reactions: Allergies No Known Allergies Allergy (Unverified 11/04/18 15:22) Home Medications: Home Medications Medication Instructions Recorded Confirmed Last Taken Type Glimepiride 4 mg PO BID 11/06/18 11/06/18 Unknown History HYDROcodone/ACETAMINOPHEN 5 - 325 mg PO Q4-6H PRN 11/06/18 11/06/18 Unknown History Ibuprofen 800 mg PO Q8HR PRN 11/06/18 11/06/18 Unknown History Lisinopril 2.5 mg PO DAILY 11/06/18 11/06/18 Unknown History Metformin HCl 1,000 mg PO BID 11/06/18 11/06/18 Unknown History NovoLIN N 5 unit SUB-Q BID MDD x 90days 11/06/18 11/06/18 Unknown History Pravastatin Sodium 20 mg PO BID 11/06/18 11/06/18 Unknown History glipiZIDE 10 mg PO BID 11/06/18 11/06/18 Unknown History Active Medications: Generic Name Dose Route Start Last Admin Trade Name Freq PRN Reason Stop Dose Admin Acetaminophen 650 mg 11/09/18 04:21 11/11/18 17:58 Tylenol FEEDTUBE 650 mg Q4H PRN Administration Fever >101 Albuterol 2.5 mg 11/04/18 17:42 Proventil IH Q3H PRN Shortness Of Breath Lipase/Protease/Amylase 1 each 11/06/18 15:[address] 10,500 Unit FEEDTUBE PRN PRN For Clogged Feeding Tube Dextrose 0 ml 11/04/18 15:40 D50w (25gm) Syringe IV PRN PRN Hypoglycemia Heparin Sodium (Porcine) 5,000 unit 11/04/18 22:00 11/13/18 09:33 Heparin SUB-Q 5,000 unit Q12HR MARIEL Administration Insulin Glargine 45 units 11/13/18 22:00 Lantus SUB-Q QHS MARIEL Insulin Human Lispro 0 unit 11/05/18 17:00 11/13/18 09:31 Humalog SUB-Q 4 unit Q4H MARIEL Administration Protocol Lansoprazole 30 mg 11/08/18 10:00 11/13/18 09:35 Prevacid Solutab FEEDTUBE 30 mg BID MARIEL Administration Simple Syrup 15 ml 11/06/18 15:57 Simple Syrup FEEDTUBE PRN PRN Hypoglycemia Simple Syrup 30 ml 11/06/18 15:57 Simple Syrup FEEDTUBE PRN PRN Hypoglycemia Sodium Bicarbonate 325 mg 11/06/18 15:57 Sodium Bicarbonate FEEDTUBE PRN PRN For Clogged Feeding Tube Sodium Chloride 10 ml 11/04/18 22:00 11/13/18 09:36 Sodium Chloride Flush Syringe 10 Ml IV 10 ml BID MARIEL Administration Sodium Chloride 10 ml 11/04/18 17:42 Sodium Chloride Flush Syringe 10 Ml IV PRN PRN LINE FLUSH Tamsulosin HCl 0.4 mg 11/07/18 13:00 11/13/18 09:35 Flomax PO 0.4 mg QDAY MARIEL Administration
[2018-11-13] MEDS: TYLENOL FEEDTUBE PRN (17:47)
[2018-11-13] MEDS: LANTUS SUB-Q SCH (22:00)
--- NOTE | 2018-11-14 00:07 | Progress Note ---
Assessment and Plan 53 YO Male with DM presents to ED for evaluation. Pt is stuporous st time of my exam and unable to provide history. Pt history taken from EMS as well as ED staff. As per staff, the patient found down and unresponsive in his home. Pt last contact with family was 5 days ago. At that time the patient was in his usual state of health. A well check was conducted, and the patient was unable to answer the door. Law Enforcement was contacted, and gained entry into the home. The patient was subsequently found down, and unresponsive and lying on the kitchen floor covered in fecal matter. EMS notified, and upon arrival the patient was found to have a serum glucose above 500, and in distress. Pt transported to [facility]. Pt seen and evaluated in ED and found to have DKA, Metabolic Encephalopathy, Sepsis suspected secondary to UTI, Rhabdomyolysis, Acidosis, and Acute Kidney Injury. Pt admitted to ICU and initiated on Sepsis protocol, as well as DKA protocol. Nephrology consulted in ED. Pulmonary team consulted in ED. No further history obtainable. No prior admission for review. No medication listed at time of admission for reconciliation. Patient was then admitted and commenced on DKA protocol. Glucose 1088 on admit, now 195. BUN 200 on admit, now 98. Found to be hypernatremic with improved glycemic control. Low T4 and elevarted TSH levels - Sepsis - resolved - Fever and white count since resolved. Unclear etiology of sepsis as all cultures are negative. Would continue to levofloxacin for now while blood cultures continue to incubate. Possible UTI, UA with pyuria but otherwise not significant. UCx negative. - DKA resolved. Continue with insulin therapy Accu-Check - Dysphagia Failed swallowing study - JAVY due to vasomotor nephropathy - improving IV hydration Nephrology consulted and following - Hypernatremia -improved continue free water via NG tube - Hypothyroidism Supplement thyroid - UTI will continue levofloxacin. Urine Cx no growth so far - Metabolic encephalopathy - improving. Able to open obey simple commands Continue with treatment of underlying conditions that include, sepsis, DKA and electrolyte imbalance - Rhabdomylosis - improving Cautious IV hydration Serial CK levels - Dark stool - resolved iv pentaprazole GI consult input appreciated - DVT and GI prophylaxis with Lovenox and omeprazole - CODE STATUS: Patient is full code - Time spent: 25 min minutes Subjective Date of service: 11/13/18 Principal diagnosis: Ac hypoxemic resp failure; Severe sepsis; DKA; JAVY; Ac encephalopathy; UTI Interval history: Patient seen and examined. More alert and minimally interactive. Still on NGT feeding Objective - Exam Narrative Exam: Constitutional: More alert. Opens eyes to voice command. Minimaaly interactive. Still Ill-looking Head: Normocephalic atraumatic Eyes: Pupils are equal round and reactive to light Nose: No enlarged turbinates, no septal deviation. Mouth: Moist mucous membranes. ON NGT feeding Neck: Supple no thyromegaly. No bruit. No JVD Heart: Regular rate and rhythm, S1-S2 normal. No rubs murmurs or gallop Lungs: Clear to auscultation bilaterally. no rales or rhonchi Abdomen: Soft, nontender. Bowel sound are present. Extremities: No edema, no cyanosis, no clubbing. skin ulcers Neuro: Open eyes on voice command. Answers short question appropriately. minimally interactive Skin: Skin ulcer in the lower extrmities Musculoskeletal system: No joint pain or swelling Hematological: No petechia or subcutanous hemorrhages. Immunological: No multiple septic spots on the skin Lymphatic: No generalized lymphadenopathy Psychiatry: Still Weak - Constitutional Vitals: Vital Signs - 12hr 11/13/18 11/13/18 11/13/18 13:00 14:00 15:00 Temperature Pulse Rate 94 H 97 H 95 H Pulse Rate [ From Monitor] Blood Pressure 99/56 110/62 109/63 O2 Sat by Pulse 95 90 93 Oximetry 11/13/18 11/13/18 11/13/18 16:00 17:00 18:00 Temperature 98.1 F Pulse Rate 95 H 91 H 91 H Pulse Rate [ 90 From Monitor] Blood Pressure 119/64 111/62 120/64 O2 Sat by Pulse 92 92 95 Oximetry 11/13/18 20:36 Temperature Pulse Rate Pulse Rate [ From Monitor] Blood Pressure O2 Sat by Pulse 95 Oximetry - Labs CBC & Chem 7: 11/13/18 04:15 11/13/18 04:15 Labs: Abnormal lab results 11/13/18 11/13/18 11/13/18 Range/Units 00:21 04:15 04:15 RBC 3.15 L (3.65-5.03) M/mm3 Hgb 9.6 L (11.8-15.2) gm/dl Hct 28.0 L (35.5-45.6) % Plt Count 633 H (140-440) K/mm3 Lymph % (Auto) 8.8 L (13.4-35.0) % [place] % (Auto) 7.6 H (0.0-7.3) % Lymph # 0.7 L (1.2-5.4) K/mm3 Seg Neutrophils % 82.2 H (40.0-70.0) % Sodium 148 H (137-145) mmol/L Chloride 110.1 H (98-107) mmol/L BUN 26 H (9-20) mg/dL Glucose 337 H (75-100) mg/dL POC Glucose 391 H (70-105) Calcium 8.0 L (8.4-10.2) mg/dL Total Protein 5.7 L (6.3-8.2) g/dL Albumin 1.8 L (3.9-5) g/dL 11/13/18 11/13/18 11/13/18 Range/Units 04:32 09:08 17:04 RBC (3.65-5.03) M/mm3 Hgb (11.8-15.2) gm/dl Hct (35.5-45.6) % Plt Count (140-440) K/mm3 Lymph % (Auto) (13.4-35.0) % [place] % (Auto) (0.0-7.3) % Lymph # (1.2-5.4) K/mm3 Seg Neutrophils % (40.0-70.0) % Sodium (137-145) mmol/L Chloride (98-107) mmol/L BUN (9-20) mg/dL Glucose (75-100) mg/dL POC Glucose 350 H 285 H 345 H (70-105) Calcium (8.4-10.2) mg/dL Total Protein (6.3-8.2) g/dL Albumin (3.9-5) g/dL
[2018-11-14] MEDS: HumaLOG SUB-Q SCH ×6 (01:36→21:28)
[2018-11-14 03:22] LABS: BUN/Creatinine Ratio 39; Blood Urea Nitrogen 27 mg/dL (9-20); Calcium 7.7 mg/dL (8.4-10.2); Hemolysis Index 87
--- NOTE | 2018-11-14 08:48 | Progress Note ---
Assessment and Plan Patient is awake. Resting on room air. O2 saturation 91% on room air. No complaint of chest pain, shortness of breath or cough. However physical therapy called me, Patients O2 saturation dropping to 86% on standing up. Recommend O2 2 litres. Patient is also candidate for home O2. - Patient Problems (1) ARF (acute renal failure) Current Visit: Yes Status: Acute Plan to address problem: Management as per nephrology. (2) Acidosis Current Visit: Yes Status: Acute Plan to address problem: Improved. Repeat blood gases ordered, but not done. (3) DKA (diabetic ketoacidoses) Current Visit: Yes Status: Acute Plan to address problem: Improved. Management as per primary care. (4) Hypothyroidism Current Visit: Yes Status: Acute Qualifiers: Hypothyroidism type: unspecified Qualified Code(s): E03.9 - Hypothyroidism, unspecified Plan to address problem: Management as per primary care. Subjective Date of service: 11/14/18 Principal diagnosis: Ac hypoxemic resp failure; Severe sepsis; DKA; JAVY; Ac encephalopathy; UTI Interval history: Patient is awake. Resting on room air. O2 saturation 91% on room air. No complaint of chest pain, shortness of breath or cough. However physical therapy called me, Patients O2 saturation dropping to 86% on standing up. Recommend O2 2 litres. Patient is also candidate for home O2. Objective Vital Signs - 12hr 11/13/18 11/13/18 11/13/18 21:00 22:00 23:00 Temperature Pulse Rate 86 87 88 Pulse Rate [ From Monitor] Respiratory Rate Blood Pressure 123/69 125/73 114/65 O2 Sat by Pulse 95 95 95 Oximetry 11/14/18 11/14/18 11/14/18 00:00 01:00 02:00 Temperature 97.8 F Pulse Rate 84 90 81 Pulse Rate [ 91 H From Monitor] Respiratory 22 Rate Blood Pressure 115/64 125/65 130/68 O2 Sat by Pulse 95 94 92 Oximetry 11/14/18 11/14/18 11/14/18 03:00 04:00 05:00 Temperature 97.7 F Pulse Rate 84 88 81 Pulse Rate [ 84 From Monitor] Respiratory 20 Rate Blood Pressure 113/66 108/67 108/67 O2 Sat by Pulse 95 95 94 Oximetry 11/14/18 11/14/18 11/14/18 06:00 07:00 08:33 Temperature 98.4 F Pulse Rate 84 80 Pulse Rate [ From Monitor] Respiratory Rate Blood Pressure 108/67 108/67 O2 Sat by Pulse 95 93 Oximetry Constitutional: no acute distress, alert Eyes: non-icteric Neck: supple, no lymphadenopathy Ascultation: Bilateral: clear Cardiovascular: regular rate and rhythm Gastrointestinal: normoactive bowel sounds Integumentary: normal Extremities: no cyanosis, no edema Neurologic: normal mental status, non-focal exam, pupils equal and round, CN II- XII normal Psychiatric: depressed CBC and BMP: 11/13/18 04:15 11/14/18 02:38 ABG, PT/INR, D-dimer: ABG POC ABG pH 7.432 (7.35-7.45) 11/05/18 17:08 POC ABG pCO2 32.3 (35-45) L 11/05/18 17:08 POC ABG HCO3 21.5 (22-26 mml/L) 11/05/18 17:08 POC ABG Total CO2 23 (23-27mmol/L) 11/05/18 17:08 POC ABG O2 Sat 85 11/05/18 17:08 PT/INR, D-dimer PT 15.6 Sec. (12.2-14.9) H 11/04/18 16:05 INR 1.27 (0.87-1.13) H 11/04/18 16:05 Abnormal lab findings: Abnormal Labs 11/04/18 11/04/18 11/04/18 15:23 15:35 16:05 WBC 12.6 H RBC Hgb Hct Plt Count Lymph % (Auto) [place] % (Auto) Lymph # Seg Neutrophils % Seg Neuts % (Manual) 84.0 H Lymphocytes % (Manual) 1.0 L Seg Neutrophils # Seg Neutrophils # Man 10.6 H Lymphocytes # (Manual) 0.1 L PT INR POC ABG pCO2 VBG pH Sodium Potassium Chloride Carbon Dioxide BUN Creatinine Glucose POC Glucose > 500 H Lactic Acid Calcium Ionized Calcium Phosphorus Magnesium AST Total Creatine Kinase C-Reactive Protein Total Protein Albumin TSH Free T4 PTH Intact Urine WBC (Auto) 12.0 H Urine Creatinine Salicylates Acetaminophen 11/04/18 11/04/18 11/04/18 16:05 16:05 16:05 WBC RBC Hgb Hct Plt Count Lymph % (Auto) [place] % (Auto) Lymph # Seg Neutrophils % Seg Neuts % (Manual) Lymphocytes % (Manual) Seg Neutrophils # Seg Neutrophils # Man Lymphocytes # (Manual) PT 15.6 H INR 1.27 H POC ABG pCO2 VBG pH Sodium 153 H Potassium 6.2 H* Chloride Carbon Dioxide 18 L BUN 200 H Creatinine 6.8 H Glucose 1088 H* POC Glucose Lactic Acid 2.80 H* Calcium 7.2 L Ionized Calcium Phosphorus Magnesium AST Total Creatine Kinase C-Reactive Protein Total Protein Albumin 3.1 L TSH Free T4 PTH Intact Urine WBC (Auto) Urine Creatinine Salicylates Acetaminophen 11/04/18 11/04/18 11/04/18 16:05 16:05 16:05 WBC RBC Hgb Hct Plt Count Lymph % (Auto) [place] % (Auto) Lymph # Seg Neutrophils % Seg Neuts % (Manual) Lymphocytes % (Manual) Seg Neutrophils # Seg Neutrophils # Man Lymphocytes # (Manual) PT INR POC ABG pCO2 VBG pH 7.245 L Sodium Potassium Chloride Carbon Dioxide BUN Creatinine Glucose POC Glucose Lactic Acid Calcium Ionized Calcium Phosphorus 13.80 H Magnesium 3.60 H AST Total Creatine Kinase C-Reactive Protein Total Protein Albumin TSH 0.169 L Free T4 0.68 L PTH Intact Urine WBC (Auto) Urine Creatinine Salicylates Acetaminophen 11/04/18 11/04/18 11/04/18 16:05 16:48 19:40 WBC RBC Hgb Hct Plt Count Lymph % (Auto) [place] % (Auto) Lymph # Seg Neutrophils % Seg Neuts % (Manual) Lymphocytes % (Manual) Seg Neutrophils # Seg Neutrophils # Man Lymphocytes # (Manual) PT INR POC ABG pCO2 VBG pH Sodium Potassium Chloride Carbon Dioxide BUN Creatinine Glucose POC Glucose > 500 H 458 H Lactic Acid Calcium Ionized Calcium Phosphorus Magnesium AST Total Creatine Kinase 1857 H C-Reactive Protein Total Protein Albumin TSH Free T4 PTH Intact Urine WBC (Auto) Urine Creatinine Salicylates Acetaminophen 11/04/18 11/04/18 11/04/18 20:29 20:29 20:29 WBC RBC Hgb Hct Plt Count Lymph % (Auto) [place] % (Auto) Lymph # Seg Neutrophils % Seg Neuts % (Manual) Lymphocytes % (Manual) Seg Neutrophils # Seg Neutrophils # Man Lymphocytes # (Manual) PT INR POC ABG pCO2 VBG pH Sodium 163 H* D Potassium Chloride 121.4 H Carbon Dioxide 21 L BUN 166 H Creatinine 5.6 H Glucose 513 H* POC Glucose Lactic Acid 3.30 H* 3.30 H* Calcium 6.4 L Ionized Calcium Phosphorus Magnesium AST Total Creatine Kinase C-Reactive Protein Total Protein Albumin TSH Free T4 PTH Intact Urine WBC (Auto) Urine Creatinine Salicylates Acetaminophen 11/04/18 11/04/18 11/04/18 20:55 21:03 22:00 WBC RBC Hgb Hct Plt Count Lymph % (Auto) [place] % (Auto) Lymph # Seg Neutrophils % Seg Neuts % (Manual) Lymphocytes % (Manual) Seg Neutrophils # Seg Neutrophils # Man Lymphocytes # (Manual) PT INR POC ABG pCO2 VBG pH Sodium Potassium Chloride Carbon Dioxide BUN Creatinine Glucose POC Glucose 496 H Lactic Acid 3.60 H* Calcium Ionized Calcium Phosphorus Magnesium AST Total Creatine Kinase C-Reactive Protein Total Protein Albumin TSH Free T4 PTH Intact Urine WBC (Auto) Urine Creatinine 58.1 H Salicylates Acetaminophen 11/04/18 11/04/18 11/04/18 22:04 23:07 23:47 WBC RBC Hgb Hct Plt Count Lymph % (Auto) [place] % (Auto) Lymph # Seg Neutrophils % Seg Neuts % (Manual) Lymphocytes % (Manual) Seg Neutrophils # Seg Neutrophils # Man Lymphocytes # (Manual) PT INR POC ABG pCO2 VBG pH Sodium 170 H* Potassium Chloride 127.1 H Carbon Dioxide BUN 164 H Creatinine 5.2 H Glucose 213 H POC Glucose 357 H 306 H Lactic Acid Calcium 6.5 L Ionized Calcium Phosphorus Magnesium AST Total Creatine Kinase C-Reactive Protein Total Protein Albumin TSH Free T4 PTH Intact Urine WBC (Auto) Urine Creatinine Salicylates Acetaminophen 11/04/18 11/05/18 11/05/18 23:47 00:04 00:09 WBC RBC Hgb Hct Plt Count Lymph % (Auto) [place] % (Auto) Lymph # Seg Neutrophils % Seg Neuts % (Manual) Lymphocytes % (Manual) Seg Neutrophils # Seg Neutrophils # Man Lymphocytes # (Manual) PT INR POC ABG pCO2 VBG pH Sodium 163 H* Potassium Chloride 127.5 H Carbon Dioxide BUN 117 H Creatinine 3.3 H Glucose 235 H POC Glucose 219 H Lactic Acid 3.20 H* Calcium 6.8 L Ionized Calcium Phosphorus Magnesium AST Total Creatine Kinase C-Reactive Protein Total Protein Albumin TSH Free T4 PTH Intact Urine WBC (Auto) Urine Creatinine Salicylates Acetaminophen 11/05/18 11/05/18 11/05/18 00:59 03:13 03:52 WBC RBC Hgb Hct Plt Count Lymph % (Auto) [place] % (Auto) Lymph # Seg Neutrophils % Seg Neuts % (Manual) Lymphocytes % (Manual) Seg Neutrophils # Seg Neutrophils # Man Lymphocytes # (Manual) PT INR POC ABG pCO2 VBG pH Sodium Potassium Chloride Carbon Dioxide BUN Creatinine Glucose POC Glucose 204 H 124 H Lactic Acid Calcium Ionized Calcium Phosphorus Magnesium AST Total Creatine Kinase 1680 H C-Reactive Protein Total Protein Albumin TSH Free T4 PTH Intact Urine WBC (Auto) Urine Creatinine Salicylates Acetaminophen 11/05/18 11/05/18 11/05/18 03:52 04:25 05:11 WBC RBC Hgb Hct Plt Count Lymph % (Auto) [place] % (Auto) Lymph # Seg Neutrophils % Seg Neuts % (Manual) Lymphocytes % (Manual) Seg Neutrophils # Seg Neutrophils # Man Lymphocytes # (Manual) PT INR POC ABG pCO2 VBG pH Sodium 169 H* Potassium Chloride 126.2 H Carbon Dioxide BUN 156 H Creatinine 4.7 H Glucose 128 H POC Glucose 150 H 173 H Lactic Acid Calcium 6.3 L Ionized Calcium Phosphorus Magnesium AST Total Creatine Kinase C-Reactive Protein Total Protein Albumin TSH Free T4 PTH Intact Urine WBC (Auto) Urine Creatinine Salicylates Acetaminophen 11/05/18 11/05/18 11/05/18 06:05 06:58 07:48 WBC RBC Hgb Hct Plt Count Lymph % (Auto) [place] % (Auto) Lymph # Seg Neutrophils % Seg Neuts % (Manual) Lymphocytes % (Manual) Seg Neutrophils # Seg Neutrophils # Man Lymphocytes # (Manual) PT INR POC ABG pCO2 VBG pH Sodium Potassium Chloride Carbon Dioxide BUN Creatinine Glucose POC Glucose 136 H 152 H 177 H Lactic Acid Calcium Ionized Calcium Phosphorus Magnesium AST Total Creatine Kinase C-Reactive Protein Total Protein Albumin TSH Free T4 PTH Intact Urine WBC (Auto) Urine Creatinine Salicylates Acetaminophen 11/05/18 11/05/18 11/05/18 08:21 08:21 08:23 WBC RBC Hgb Hct Plt Count Lymph % (Auto) [place] % (Auto) Lymph # Seg Neutrophils % Seg Neuts % (Manual) Lymphocytes % (Manual) Seg Neutrophils # Seg Neutrophils # Man Lymphocytes # (Manual) PT INR POC ABG pCO2 VBG pH Sodium 171 H* Potassium Chloride 128.9 H Carbon Dioxide BUN 149 H Creatinine 4.5 H Glucose 159 H POC Glucose 157 H Lactic Acid Calcium 6.7 L Ionized Calcium Phosphorus Magnesium AST Total Creatine Kinase C-Reactive Protein Total Protein Albumin TSH Free T4 PTH Intact 119.3 H Urine WBC (Auto) Urine Creatinine Salicylates Acetaminophen 11/05/18 11/05/18 11/05/18 10:21 11:12 12:37 WBC RBC Hgb Hct Plt Count Lymph % (Auto) [place] % (Auto) Lymph # Seg Neutrophils % Seg Neuts % (Manual) Lymphocytes % (Manual) Seg Neutrophils # Seg Neutrophils # Man Lymphocytes # (Manual) PT INR POC ABG pCO2 VBG pH Sodium Potassium Chloride Carbon Dioxide BUN Creatinine Glucose POC Glucose 171 H 155 H 145 H Lactic Acid Calcium Ionized Calcium Phosphorus Magnesium AST Total Creatine Kinase C-Reactive Protein Total Protein Albumin TSH Free T4 PTH Intact Urine WBC (Auto) Urine Creatinine Salicylates Acetaminophen 11/05/18 11/05/18 11/05/18 13:24 13:47 14:42 WBC RBC Hgb Hct Plt Count Lymph % (Auto) [place] % (Auto) Lymph # Seg Neutrophils % Seg Neuts % (Manual) Lymphocytes % (Manual) Seg Neutrophils # Seg Neutrophils # Man Lymphocytes # (Manual) PT INR POC ABG pCO2 VBG pH Sodium 167 H* Potassium Chloride 131.6 H Carbon Dioxide BUN 130 H Creatinine 3.8 H Glucose 136 H POC Glucose 137 H 133 H Lactic Acid Calcium 6.4 L Ionized Calcium Phosphorus Magnesium AST Total Creatine Kinase C-Reactive Protein Total Protein Albumin TSH Free T4 PTH Intact Urine WBC (Auto) Urine Creatinine Salicylates Acetaminophen 11/05/18 11/05/18 11/05/18 16:55 17:08 18:14 WBC RBC Hgb Hct Plt Count Lymph % (Auto) [place] % (Auto) Lymph # Seg Neutrophils % Seg Neuts % (Manual) Lymphocytes % (Manual) Seg Neutrophils # Seg Neutrophils # Man Lymphocytes # (Manual) PT INR POC ABG pCO2 32.3 L VBG pH Sodium Potassium Chloride Carbon Dioxide BUN Creatinine Glucose POC Glucose 194 H 195 H Lactic Acid Calcium Ionized Calcium Phosphorus Magnesium AST Total Creatine Kinase C-Reactive Protein Total Protein Albumin TSH Free T4 PTH Intact Urine WBC (Auto) Urine Creatinine Salicylates Acetaminophen 11/05/18 11/05/18 11/05/18 18:35 18:35 18:35 WBC RBC Hgb Hct Plt Count Lymph % (Auto) [place] % (Auto) Lymph # Seg Neutrophils % Seg Neuts % (Manual) Lymphocytes % (Manual) Seg Neutrophils # Seg Neutrophils # Man Lymphocytes # (Manual) PT INR POC ABG pCO2 VBG pH Sodium Potassium Chloride Carbon Dioxide BUN Creatinine Glucose POC Glucose Lactic Acid Calcium Ionized Calcium Phosphorus Magnesium AST Total Creatine Kinase C-Reactive Protein 19.50 H Total Protein Albumin TSH Free T4 PTH Intact Urine WBC (Auto) Urine Creatinine Salicylates < 0.3 L Acetaminophen < 5.0 L 11/05/18 11/06/18 11/06/18 21:09 01:36 04:50 WBC RBC Hgb 11.3 L Hct 32.8 L D Plt Count 110 L Lymph % (Auto) [place] % (Auto) Lymph # Seg Neutrophils % Seg Neuts % (Manual) Lymphocytes % (Manual) Seg Neutrophils # Seg Neutrophils # Man Lymphocytes # (Manual) PT INR POC ABG pCO2 VBG pH Sodium Potassium Chloride Carbon Dioxide BUN Creatinine Glucose POC Glucose 250 H 289 H Lactic Acid Calcium Ionized Calcium Phosphorus Magnesium AST Total Creatine Kinase C-Reactive Protein Total Protein Albumin TSH Free T4 PTH Intact Urine WBC (Auto) Urine Creatinine Salicylates Acetaminophen 11/06/18 11/06/18 11/06/18 04:50 04:50 05:14 WBC RBC Hgb Hct Plt Count Lymph % (Auto) [place] % (Auto) Lymph # Seg Neutrophils % Seg Neuts % (Manual) Lymphocytes % (Manual) Seg Neutrophils # Seg Neutrophils # Man Lymphocytes # (Manual) PT INR POC ABG pCO2 VBG pH Sodium 165 H* 164 H* Potassium Chloride 127.4 H Carbon Dioxide BUN 113 H Creatinine 3.2 H Glucose 208 H POC Glucose 215 H Lactic Acid Calcium 6.8 L Ionized Calcium Phosphorus Magnesium AST 55 H Total Creatine Kinase C-Reactive Protein Total Protein 5.2 L D Albumin 2.3 L TSH Free T4 PTH Intact Urine WBC (Auto) Urine Creatinine Salicylates Acetaminophen 11/06/18 11/06/18 11/06/18 07:50 08:50 12:16 WBC RBC Hgb Hct Plt Count Lymph % (Auto) [place] % (Auto) Lymph # Seg Neutrophils % Seg Neuts % (Manual) Lymphocytes % (Manual) Seg Neutrophils # Seg Neutrophils # Man Lymphocytes # (Manual) PT INR POC ABG pCO2 VBG pH Sodium 161 H* Potassium Chloride 126.0 H Carbon Dioxide BUN 111 H Creatinine 3.0 H Glucose 187 H POC Glucose 239 H 198 H Lactic Acid Calcium 7.0 L Ionized Calcium Phosphorus Magnesium AST Total Creatine Kinase C-Reactive Protein Total Protein Albumin TSH Free T4 PTH Intact Urine WBC (Auto) Urine Creatinine Salicylates Acetaminophen 11/06/18 11/06/18 11/06/18 15:42 15:42 17:59 WBC RBC Hgb Hct Plt Count Lymph % (Auto) [place] % (Auto) Lymph # Seg Neutrophils % Seg Neuts % (Manual) Lymphocytes % (Manual) Seg Neutrophils # Seg Neutrophils # Man Lymphocytes # (Manual) PT INR POC ABG pCO2 VBG pH Sodium 162 H* Potassium Chloride 127.3 H Carbon Dioxide BUN 98 H Creatinine 2.7 H Glucose 195 H POC Glucose 225 H Lactic Acid Calcium 7.1 L Ionized Calcium 4.4 L Phosphorus Magnesium AST Total Creatine Kinase C-Reactive Protein Total Protein Albumin TSH Free T4 PTH Intact Urine WBC (Auto) Urine Creatinine Salicylates Acetaminophen 11/06/18 11/06/18 11/06/18 21:21 21:24 21:24 WBC RBC Hgb 11.0 L Hct 33.4 L Plt Count Lymph % (Auto) [place] % (Auto) Lymph # Seg Neutrophils % Seg Neuts % (Manual) Lymphocytes % (Manual) Seg Neutrophils # Seg Neutrophils # Man Lymphocytes # (Manual) PT INR POC ABG pCO2 VBG pH Sodium Potassium Chloride Carbon Dioxide BUN Creatinine Glucose POC Glucose 272 H Lactic Acid Calcium Ionized Calcium Phosphorus Magnesium AST Total Creatine Kinase 3538 H C-Reactive Protein Total Protein Albumin TSH Free T4 PTH Intact Urine WBC (Auto) Urine Creatinine Salicylates Acetaminophen 11/07/18 11/07/18 11/07/18 02:01 04:13 04:13 WBC RBC Hgb 11.4 L Hct 33.8 L Plt Count 103 L Lymph % (Auto) [place] % (Auto) Lymph # Seg Neutrophils % Seg Neuts % (Manual) 83.0 H Lymphocytes % (Manual) 6.0 L Seg Neutrophils # Seg Neutrophils # Man Lymphocytes # (Manual) 0.6 L PT INR POC ABG pCO2 VBG pH Sodium 161 H* Potassium Chloride 125.8 H Carbon Dioxide BUN 80 H Creatinine 2.4 H Glucose 246 H POC Glucose 282 H Lactic Acid Calcium 7.4 L Ionized Calcium Phosphorus Magnesium 2.50 H AST 106 H Total Creatine Kinase C-Reactive Protein Total Protein 5.7 L Albumin 2.0 L TSH Free T4 PTH Intact Urine WBC (Auto) Urine Creatinine Salicylates Acetaminophen 11/07/18 11/07/1811/07/19 04:13 05:17 09:15 WBC RBC Hgb Hct Plt Count Lymph % (Auto) [place] % (Auto) Lymph # Seg Neutrophils % Seg Neuts % (Manual) Lymphocytes % (Manual) Seg Neutrophils # Seg Neutrophils # Man Lymphocytes # (Manual) PT INR POC ABG pCO2 VBG pH Sodium Potassium Chloride Carbon Dioxide BUN Creatinine Glucose POC Glucose 256 H 287 H Lactic Acid Calcium Ionized Calcium Phosphorus Magnesium AST Total Creatine Kinase 2918 H C-Reactive Protein Total Protein Albumin TSH Free T4 PTH Intact Urine WBC (Auto) Urine Creatinine Salicylates Acetaminophen 11/07/18 11/07/18 11/07/18 13:27 15:10 16:38 WBC RBC Hgb 10.2 L Hct 31.2 L Plt Count Lymph % (Auto) [place] % (Auto) Lymph # Seg Neutrophils % Seg Neuts % (Manual) Lymphocytes % (Manual) Seg Neutrophils # Seg Neutrophils # Man Lymphocytes # (Manual) PT INR POC ABG pCO2 VBG pH Sodium Potassium Chloride Carbon Dioxide BUN Creatinine Glucose POC Glucose 281 H 284 H Lactic Acid Calcium Ionized Calcium Phosphorus Magnesium AST Total Creatine Kinase C-Reactive Protein Total Protein Albumin TSH Free T4 PTH Intact Urine WBC (Auto) Urine Creatinine Salicylates Acetaminophen 11/07/18 11/07/18 11/08/18 21:08 21:41 01:24 WBC RBC Hgb 10.2 L Hct 30.8 L Plt Count Lymph % (Auto) [place] % (Auto) Lymph # Seg Neutrophils % Seg Neuts % (Manual) Lymphocytes % (Manual) Seg Neutrophils # Seg Neutrophils # Man Lymphocytes # (Manual) PT INR POC ABG pCO2 VBG pH Sodium Potassium Chloride Carbon Dioxide BUN Creatinine Glucose POC Glucose 349 H 363 H Lactic Acid Calcium Ionized Calcium Phosphorus Magnesium AST Total Creatine Kinase C-Reactive Protein Total Protein Albumin TSH Free T4 PTH Intact Urine WBC (Auto) Urine Creatinine Salicylates Acetaminophen 11/08/18 11/08/18 11/08/18 04:30 04:30 04:30 WBC RBC 3.26 L Hgb 10.2 L Hct 29.9 L Plt Count 103 L Lymph % (Auto) 7.7 L [place] % (Auto) 7.5 H Lymph # 0.8 L Seg Neutrophils % 83.6 H Seg Neuts % (Manual) Lymphocytes % (Manual) Seg Neutrophils # 8.6 H Seg Neutrophils # Man Lymphocytes # (Manual) PT INR POC ABG pCO2 VBG pH Sodium 157 H Potassium 3.5 L Chloride 119.8 H Carbon Dioxide BUN 52 H Creatinine 1.9 H Glucose 244 H POC Glucose Lactic Acid Calcium 7.3 L Ionized Calcium Phosphorus Magnesium AST 88 H Total Creatine Kinase 1829 H C-Reactive Protein Total Protein 4.4 L D Albumin 2.3 L TSH Free T4 PTH Intact Urine WBC (Auto) Urine Creatinine Salicylates Acetaminophen 11/08/18 11/08/18 11/08/18 05:34 09:12 14:20 WBC RBC Hgb Hct Plt Count Lymph % (Auto) [place] % (Auto) Lymph # Seg Neutrophils % Seg Neuts % (Manual) Lymphocytes % (Manual) Seg Neutrophils # Seg Neutrophils # Man Lymphocytes # (Manual) PT INR POC ABG pCO2 VBG pH Sodium Potassium Chloride Carbon Dioxide BUN Creatinine Glucose POC Glucose 250 H 299 H 379 H Lactic Acid Calcium Ionized Calcium Phosphorus Magnesium AST Total Creatine Kinase C-Reactive Protein Total Protein Albumin TSH Free T4 PTH Intact Urine WBC (Auto) Urine Creatinine Salicylates Acetaminophen 11/08/18 11/08/18 11/08/18 14:40 17:14 21:59 WBC RBC Hgb 10.2 L Hct 30.8 L Plt Count Lymph % (Auto) [place] % (Auto) Lymph # Seg Neutrophils % Seg Neuts % (Manual) Lymphocytes % (Manual) Seg Neutrophils # Seg Neutrophils # Man Lymphocytes # (Manual) PT INR POC ABG pCO2 VBG pH Sodium Potassium Chloride Carbon Dioxide BUN Creatinine Glucose POC Glucose 356 H 385 H Lactic Acid Calcium Ionized Calcium Phosphorus Magnesium AST Total Creatine Kinase C-Reactive Protein Total Protein Albumin TSH Free T4 PTH Intact Urine WBC (Auto) Urine Creatinine Salicylates Acetaminophen 11/09/18 11/09/18 11/09/18 00:57 04:33 04:33 WBC RBC 3.20 L Hgb 9.7 L Hct 29.3 L Plt Count 117 L Lymph % (Auto) 8.2 L [place] % (Auto) 7.4 H Lymph # 0.8 L Seg Neutrophils % 83.2 H Seg Neuts % (Manual) Lymphocytes % (Manual) Seg Neutrophils # Seg Neutrophils # Man Lymphocytes # (Manual) PT INR POC ABG pCO2 VBG pH Sodium 148 H D Potassium Chloride 113.2 H Carbon Dioxide BUN 37 H Creatinine Glucose 252 H POC Glucose 362 H Lactic Acid Calcium 7.8 L Ionized Calcium Phosphorus 1.90 L Magnesium AST 52 H Total Creatine Kinase C-Reactive Protein Total Protein 5.3 L D Albumin 1.6 L TSH Free T4 PTH Intact Urine WBC (Auto) Urine Creatinine Salicylates Acetaminophen 11/09/18 11/09/18 11/09/18 05:24 09:15 13:12 WBC RBC Hgb Hct Plt Count Lymph % (Auto) [place] % (Auto) Lymph # Seg Neutrophils % Seg Neuts % (Manual) Lymphocytes % (Manual) Seg Neutrophils # Seg Neutrophils # Man Lymphocytes # (Manual) PT INR POC ABG pCO2 VBG pH Sodium Potassium Chloride Carbon Dioxide BUN Creatinine Glucose POC Glucose 304 H 297 H 300 H Lactic Acid Calcium Ionized Calcium Phosphorus Magnesium AST Total Creatine Kinase C-Reactive Protein Total Protein Albumin TSH Free T4 PTH Intact Urine WBC (Auto) Urine Creatinine Salicylates Acetaminophen 11/09/18 11/09/18 11/10/18 17:35 21:09 00:55 WBC RBC Hgb Hct Plt Count Lymph % (Auto) [place] % (Auto) Lymph # Seg Neutrophils % Seg Neuts % (Manual) Lymphocytes % (Manual) Seg Neutrophils # Seg Neutrophils # Man Lymphocytes # (Manual) PT INR POC ABG pCO2 VBG pH Sodium Potassium Chloride Carbon Dioxide BUN Creatinine Glucose POC Glucose 262 H 213 H 283 H Lactic Acid Calcium Ionized Calcium Phosphorus Magnesium AST Total Creatine Kinase C-Reactive Protein Total Protein Albumin TSH Free T4 PTH Intact Urine WBC (Auto) Urine Creatinine Salicylates Acetaminophen 11/10/18 11/10/18 11/10/18 04:46 04:46 04:46 WBC RBC 3.17 L Hgb 9.6 L Hct 28.7 L Plt Count Lymph % (Auto) 10.3 L [place] % (Auto) 10.0 H Lymph # 0.8 L Seg Neutrophils % 78.6 H Seg Neuts % (Manual) Lymphocytes % (Manual) Seg Neutrophils # Seg Neutrophils # Man Lymphocytes # (Manual) PT INR POC ABG pCO2 VBG pH Sodium 151 H Potassium 3.5 L Chloride 115.1 H Carbon Dioxide BUN 30 H Creatinine Glucose 183 H POC Glucose Lactic Acid Calcium 7.8 L Ionized Calcium Phosphorus Magnesium AST Total Creatine Kinase 408 H C-Reactive Protein Total Protein 5.7 L Albumin 1.8 L TSH Free T4 PTH Intact Urine WBC (Auto) Urine Creatinine Salicylates Acetaminophen 11/10/18 11/10/18 11/10/18 05:12 08:06 11:32 WBC RBC Hgb Hct Plt Count Lymph % (Auto) [place] % (Auto) Lymph # Seg Neutrophils % Seg Neuts % (Manual) Lymphocytes % (Manual) Seg Neutrophils # Seg Neutrophils # Man Lymphocytes # (Manual) PT INR POC ABG pCO2 VBG pH Sodium Potassium Chloride Carbon Dioxide BUN Creatinine Glucose POC Glucose 201 H 195 H 302 H Lactic Acid Calcium Ionized Calcium Phosphorus Magnesium AST Total Creatine Kinase C-Reactive Protein Total Protein Albumin TSH Free T4 PTH Intact Urine WBC (Auto) Urine Creatinine Salicylates Acetaminophen 11/10/18 11/10/18 11/11/18 15:55 21:44 02:06 WBC RBC Hgb Hct Plt Count Lymph % (Auto) [place] % (Auto) Lymph # Seg Neutrophils % Seg Neuts % (Manual) Lymphocytes % (Manual) Seg Neutrophils # Seg Neutrophils # Man Lymphocytes # (Manual) PT INR POC ABG pCO2 VBG pH Sodium Potassium Chloride Carbon Dioxide BUN Creatinine Glucose POC Glucose 292 H 348 H 370 H Lactic Acid Calcium Ionized Calcium Phosphorus Magnesium AST Total Creatine Kinase C-Reactive Protein Total Protein Albumin TSH Free T4 PTH Intact Urine WBC (Auto) Urine Creatinine Salicylates Acetaminophen 11/11/18 11/11/18 11/11/18 04:42 04:42 05:20 WBC RBC 3.13 L Hgb 9.5 L Hct 28.2 L Plt Count Lymph % (Auto) [place] % (Auto) Lymph # Seg Neutrophils % Seg Neuts % (Manual) 91.0 H Lymphocytes % (Manual) 4.0 L Seg Neutrophils # Seg Neutrophils # Man 8.6 H Lymphocytes # (Manual) 0.4 L PT INR POC ABG pCO2 VBG pH Sodium Potassium Chloride 109.6 H Carbon Dioxide BUN 28 H Creatinine Glucose 263 H POC Glucose 272 H Lactic Acid Calcium 7.9 L Ionized Calcium Phosphorus Magnesium AST Total Creatine Kinase C-Reactive Protein Total Protein 5.6 L Albumin 1.6 L TSH Free T4 PTH Intact Urine WBC (Auto) Urine Creatinine Salicylates Acetaminophen 11/11/18 11/11/18 11/11/18 08:30 13:09 17:10 WBC RBC Hgb Hct Plt Count Lymph % (Auto) [place] % (Auto) Lymph # Seg Neutrophils % Seg Neuts % (Manual) Lymphocytes % (Manual) Seg Neutrophils # Seg Neutrophils # Man Lymphocytes # (Manual) PT INR POC ABG pCO2 VBG pH Sodium Potassium Chloride Carbon Dioxide BUN Creatinine Glucose POC Glucose 290 H 340 H 276 H Lactic Acid Calcium Ionized Calcium Phosphorus Magnesium AST Total Creatine Kinase C-Reactive Protein Total Protein Albumin TSH Free T4 PTH Intact Urine WBC (Auto) Urine Creatinine Salicylates Acetaminophen 11/11/18 11/12/18 11/12/18 22:19 00:29 04:51 WBC RBC 3.22 L Hgb 9.7 L Hct 28.6 L Plt Count 454 H Lymph % (Auto) 7.0 L [place] % (Auto) 7.5 H Lymph # 0.7 L Seg Neutrophils % 83.7 H Seg Neuts % (Manual) Lymphocytes % (Manual) Seg Neutrophils # 7.8 H Seg Neutrophils # Man Lymphocytes # (Manual) PT INR POC ABG pCO2 VBG pH Sodium Potassium Chloride Carbon Dioxide BUN Creatinine Glucose POC Glucose 284 H 262 H Lactic Acid Calcium Ionized Calcium Phosphorus Magnesium AST Total Creatine Kinase C-Reactive Protein Total Protein Albumin TSH Free T4 PTH Intact Urine WBC (Auto) Urine Creatinine Salicylates Acetaminophen 11/12/18 11/12/18 11/12/18 04:51 05:24 09:54 WBC RBC Hgb Hct Plt Count Lymph % (Auto) [place] % (Auto) Lymph # Seg Neutrophils % Seg Neuts % (Manual) Lymphocytes % (Manual) Seg Neutrophils # Seg Neutrophils # Man Lymphocytes # (Manual) PT INR POC ABG pCO2 VBG pH Sodium Potassium Chloride 109.1 H Carbon Dioxide BUN 24 H Creatinine Glucose 334 H POC Glucose 335 H 288 H Lactic Acid Calcium 8.2 L Ionized Calcium Phosphorus Magnesium AST Total Creatine Kinase C-Reactive Protein Total Protein 5.5 L Albumin 1.8 L TSH Free T4 PTH Intact Urine WBC (Auto) Urine Creatinine Salicylates Acetaminophen 11/12/18 11/12/18 11/12/18 13:16 16:41 20:58 WBC RBC Hgb Hct Plt Count Lymph % (Auto) [place] % (Auto) Lymph # Seg Neutrophils % Seg Neuts % (Manual) Lymphocytes % (Manual) Seg Neutrophils # Seg Neutrophils # Man Lymphocytes # (Manual) PT INR POC ABG pCO2 VBG pH Sodium Potassium Chloride Carbon Dioxide BUN Creatinine Glucose POC Glucose 245 H 343 H 403 H Lactic Acid Calcium Ionized Calcium Phosphorus Magnesium AST Total Creatine Kinase C-Reactive Protein Total Protein Albumin TSH Free T4 PTH Intact Urine WBC (Auto) Urine Creatinine Salicylates Acetaminophen 11/13/18 11/13/18 11/13/18 00:21 04:15 04:15 WBC RBC 3.15 L Hgb 9.6 L Hct 28.0 L Plt Count 633 H Lymph % (Auto) 8.8 L [place] % (Auto) 7.6 H Lymph # 0.7 L Seg Neutrophils % 82.2 H Seg Neuts % (Manual) Lymphocytes % (Manual) Seg Neutrophils # Seg Neutrophils # Man Lymphocytes # (Manual) PT INR POC ABG pCO2 VBG pH Sodium 148 H Potassium Chloride 110.1 H Carbon Dioxide BUN 26 H Creatinine Glucose 337 H POC Glucose 391 H Lactic Acid Calcium 8.0 L Ionized Calcium Phosphorus Magnesium AST Total Creatine Kinase C-Reactive Protein Total Protein 5.7 L Albumin 1.8 L TSH Free T4 PTH Intact Urine WBC (Auto) Urine Creatinine Salicylates Acetaminophen 11/13/18 11/13/18 11/13/18 04:32 09:08 17:04 WBC RBC Hgb Hct Plt Count Lymph % (Auto) [place] % (Auto) Lymph # Seg Neutrophils % Seg Neuts % (Manual) Lymphocytes % (Manual) Seg Neutrophils # Seg Neutrophils # Man Lymphocytes # (Manual) PT INR POC ABG pCO2 VBG pH Sodium Potassium Chloride Carbon Dioxide BUN Creatinine Glucose POC Glucose 350 H 285 H 345 H Lactic Acid Calcium Ionized Calcium Phosphorus Magnesium AST Total Creatine Kinase C-Reactive Protein Total Protein Albumin TSH Free T4 PTH Intact Urine WBC (Auto) Urine Creatinine Salicylates Acetaminophen 11/13/18 11/14/18 11/14/18 21:13 01:16 02:38 WBC RBC Hgb Hct Plt Count Lymph % (Auto) [place] % (Auto) Lymph # Seg Neutrophils % Seg Neuts % (Manual) Lymphocytes % (Manual) Seg Neutrophils # Seg Neutrophils # Man Lymphocytes # (Manual) PT INR POC ABG pCO2 VBG pH Sodium 147 H Potassium 5.1 H D Chloride 107.3 H Carbon Dioxide BUN 27 H Creatinine 0.7 L Glucose 298 H POC Glucose 338 H 311 H Lactic Acid Calcium 7.7 L Ionized Calcium Phosphorus Magnesium AST Total Creatine Kinase C-Reactive Protein Total Protein Albumin TSH Free T4 PTH Intact Urine WBC (Auto) Urine Creatinine Salicylates Acetaminophen 11/14/18 05:22 WBC RBC Hgb Hct Plt Count Lymph % (Auto) [place] % (Auto) Lymph # Seg Neutrophils % Seg Neuts % (Manual) Lymphocytes % (Manual) Seg Neutrophils # Seg Neutrophils # Man Lymphocytes # (Manual) PT INR POC ABG pCO2 VBG pH Sodium Potassium Chloride Carbon Dioxide BUN Creatinine Glucose POC Glucose 250 H Lactic Acid Calcium Ionized Calcium Phosphorus Magnesium AST Total Creatine Kinase C-Reactive Protein Total Protein Albumin TSH Free T4 PTH Intact Urine WBC (Auto) Urine Creatinine Salicylates Acetaminophen
--- NOTE | 2018-11-14 09:24 | Progress Note ---
Assessment and Plan 53 YO Male with DM presents to ED for evaluation. Pt is stuporous st time of my exam and unable to provide history. Pt history taken from EMS as well as ED staff. As per staff, the patient found down and unresponsive in his home. Pt last contact with family was 5 days ago. At that time the patient was in his usual state of health. A well check was conducted, and the patient was unable to answer the door. Law Enforcement was contacted, and gained entry into the home. The patient was subsequently found down, and unresponsive and lying on the kitchen floor covered in fecal matter. EMS notified, and upon arrival the patient was found to have a serum glucose above 500, and in distress. Pt transported to [facility]. Pt seen and evaluated in ED and found to have DKA, Metabolic Encephalopathy, Sepsis suspected secondary to UTI, Rhabdomyolysis, Acidosis, and Acute Kidney Injury. Pt admitted to ICU and initiated on Sepsis protocol, as well as DKA protocol. Nephrology consulted in ED. Pulmonary team consulted in ED. No further history obtainable. No prior admission for review. No medication listed at time of admission for reconciliation. Patient was then admitted and commenced on DKA protocol. Glucose 1088 on admit, now 195. BUN 200 on admit, now 98. Found to be hypernatremic with improved glycemic control. Low T4 and elevarted TSH levels - Metabolic encephalopathy - improving. Follows all commands - Debilitation from prolonged illness PT/OT - Sepsis - resolved Dysphagia Still on NGT Repaet swallowing aval - Fever and white count since resolved. Unclear etiology of sepsis as all cultures are negative. Would continue to levofloxacin for now while blood cultures continue to incubate. Possible UTI, UA with pyuria but otherwise not significant. UCx negative. - DKA resolved. Continue with insulin therapy Accu-Check - Dysphagia Failed swallowing study - Milk hyperkalemia Trend - JAVY due to vasomotor nephropathy - improving IV hydration Nephrology consulted and following - Hypernatremia -improved continue free water via NG tube - Hypothyroidism Supplement thyroid - UTI will continue levofloxacin. Urine Cx no growth so far - Rhabdomylosis - improving Cautious IV hydration Serial CK levels - Dark stool - resolved iv pentaprazole GI consult input appreciated - DVT and GI prophylaxis with Lovenox and omeprazole - CODE STATUS: Patient is full code - Disposition: Discused with Case Mx. [facility] - Time spent: 25 min minutes Subjective Date of service: 11/14/18 Principal diagnosis: Ac hypoxemic resp failure; Severe sepsis; DKA; JAVY; Ac encephalopathy; UTI Interval history: Patient seen and examined. Alert and oriented x 3. moved his arms but weak on his lower extremities. Still on NGT feeding Objective - Exam Narrative Exam: Constitutional: Alert adn oriented x 3. Very intractive. Still Ill-looking Head: Normocephalic atraumatic Eyes: Pupils are equal round and reactive to light Nose: No enlarged turbinates, no septal deviation. Mouth: Moist mucous membranes. ON NGT feeding Neck: Supple no thyromegaly. No bruit. No JVD Heart: Regular rate and rhythm, S1-S2 normal. No rubs murmurs or gallop Lungs: Clear to auscultation bilaterally. no rales or rhonchi Abdomen: Soft, nontender. Bowel sound are present. Extremities: No edema, no cyanosis, no clubbing. skin ulcers Neuro:AxO x3 . Answers all short question appropriately. weak only in both LEs Skin: Skin ulcer in the lower extrmities Musculoskeletal system: No joint pain or swelling Hematological: No petechia or subcutanous hemorrhages. Immunological: No multiple septic spots on the skin Lymphatic: No generalized lymphadenopathy Psychiatry: No depression - Constitutional Vitals: Vital Signs - 12hr 11/13/18 11/13/18 11/14/18 22:00 23:00 00:00 Temperature 97.8 F Pulse Rate 87 88 84 Pulse Rate [ 91 H From Monitor] Respiratory 22 Rate Blood Pressure 125/73 114/65 115/64 O2 Sat by Pulse 95 95 95 Oximetry 11/14/18 11/14/18 11/14/18 01:00 02:00 03:00 Temperature Pulse Rate 90 81 84 Pulse Rate [ From Monitor] Respiratory Rate Blood Pressure 125/65 130/68 113/66 O2 Sat by Pulse 94 92 95 Oximetry 11/14/18 11/14/18 11/14/18 04:00 05:00 06:00 Temperature 97.7 F Pulse Rate 88 81 84 Pulse Rate [ 84 From Monitor] Respiratory 20 Rate Blood Pressure 108/67 108/67 108/67 O2 Sat by Pulse 95 94 95 Oximetry 11/14/18 11/14/18 07:00 08:33 Temperature 98.4 F Pulse Rate 80 Pulse Rate [ From Monitor] Respiratory Rate Blood Pressure 108/67 O2 Sat by Pulse 93 Oximetry - Labs CBC & Chem 7: 11/13/18 04:15 11/14/18 02:38 Labs: Abnormal lab results 11/13/18 11/13/18 11/14/18 Range/Units 17:04 21:13 01:16 Sodium (137-145) mmol/L Potassium (3.6-5.0) mmol/L Chloride (98-107) mmol/L BUN (9-20) mg/dL Creatinine (0.8-1.5) mg/dL Glucose (75-100) mg/dL POC Glucose 345 H 338 H 311 H (70-105) Calcium (8.4-10.2) mg/dL 11/14/18 11/14/18 11/14/18 Range/Units 02:38 05:22 09:09 Sodium 147 H (137-145) mmol/L Potassium 5.1 H D (3.6-5.0) mmol/L Chloride 107.3 H (98-107) mmol/L BUN 27 H (9-20) mg/dL Creatinine 0.7 L (0.8-1.5) mg/dL Glucose 298 H (75-100) mg/dL POC Glucose 250 H 266 H (70-105) Calcium 7.7 L (8.4-10.2) mg/dL
[2018-11-14] MEDS ORDERED: KIONEX PO ONE (10:00)
[2018-11-14] MEDS: SODIUM CHLORIDE FLUSH SYRINGE 10 ML IV SCH ×2 (10:45→21:30)
[2018-11-14] MEDS: HEPARIN SUB-Q SCH ×2 (10:45→21:29)
[2018-11-14] MEDS: PREVACID SOLUTAB FEEDTUBE SCH ×2 (10:45→21:29)
[2018-11-14] MEDS: FLOMAX PO SCH (10:45)
--- NOTE | 2018-11-14 14:07 | Progress Note ---
Assessment and Plan 1. Acute kidney injury: Vasomotor JAVY in the setting of volume depletion and DKA. Renal US was negative for hydro. Renal function is better. Monitor renal function. Avoid nephrotoxic agents. Meds dosage based on GFR. 2. FEN: Hyperkalemia, a dose of kayexalate ordered. Hypernatremia, continue water flushes. Metabolic acidosis, improved. Monitor lytes. 3. DKA: Improved. 4. Hyperglycemia. 5. Sepsis: Treated. 6. Metabolic Encephalopathy: Improving. Subjective Date of service: 11/14/18 Principal diagnosis: Ac hypoxemic resp failure; Severe sepsis; DKA; JAVY; Ac ence phalopathy; UTI Interval history: Patient was seen and examined at the bedside. No new complaint. Objective - Vital Signs Vital signs: Vital Signs - 12hr 11/14/18 11/14/18 11/14/18 03:00 04:00 05:00 Temperature 97.7 F Pulse Rate 84 88 81 Pulse Rate [ 84 From Monitor] Respiratory 20 Rate Blood Pressure 113/66 108/67 108/67 O2 Sat by Pulse 95 95 94 Oximetry 11/14/18 11/14/18 11/14/18 06:00 07:00 08:33 Temperature 98.4 F Pulse Rate 84 80 Pulse Rate [ From Monitor] Respiratory Rate Blood Pressure 108/67 108/67 O2 Sat by Pulse 95 93 Oximetry 11/14/18 11/14/18 10:25 12:00 Temperature 98.7 F Pulse Rate Pulse Rate [ From Monitor] Respiratory Rate Blood Pressure O2 Sat by Pulse 95 Oximetry - General Appearance General appearance: well-developed, appears stated age, other (no distress, NG tube noted) EENT: ATNC, PERRL, hearing intact, vision intact Neck: supple Respiratory: Present: Clear to Ascultation Cardiology: regular, S1S2, no murmurs Gastrointestinal: normoactive bowel sounds, no tenderness, no distended Integumentary: no rash, warm and dry Neurologic: no focal deficit, no asterixis, alert and oriented x3 Musculoskeletal: other (no edema) - Lab 11/13/18 04:15 11/14/18 02:38 Most recent lab results Calcium 7.7 mg/dL (8.4-10.2) L 11/14/18 02:38 Phosphorus 3.70 mg/dL (2.5-4.5) 11/13/18 04:15 Magnesium 2.50 mg/dL (1.7-2.3) H 11/07/18 04:13 58.1 mg/dL (0.1-20.0) H 11/04/18 20:55 34 mmol/L 11/04/18 20:55 Medications & Allergies - Medications Allergies/Adverse Reactions: Allergies No Known Allergies Allergy (Unverified 11/04/18 15:22) Home Medications: Home Medications Medication Instructions Recorded Confirmed Last Taken Type Glimepiride 4 mg PO BID 11/06/18 11/06/18 Unknown History HYDROcodone/ACETAMINOPHEN 5 - 325 mg PO Q4-6H PRN 11/06/18 11/06/18 Unknown History Ibuprofen 800 mg PO Q8HR PRN 11/06/18 11/06/18 Unknown History Lisinopril 2.5 mg PO DAILY 11/06/18 11/06/18 Unknown History Metformin HCl 1,000 mg PO BID 11/06/18 11/06/18 Unknown History NovoLIN N 5 unit SUB-Q BID MDD x 90days 11/06/18 11/06/18 Unknown History Pravastatin Sodium 20 mg PO BID 11/06/18 11/06/18 Unknown History glipiZIDE 10 mg PO BID 11/06/18 11/06/18 Unknown History Active Medications: Generic Name Dose Route Start Last Admin Trade Name Freq PRN Reason Stop Dose Admin Acetaminophen 650 mg 11/09/18 04:21 11/13/18 17:47 Tylenol FEEDTUBE 650 mg Q4H PRN Administration Fever >101 Albuterol 2.5 mg 11/04/18 17:42 Proventil IH Q3H PRN Shortness Of Breath Lipase/Protease/Amylase 1 each 11/06/18 15:57 Pancreaze 10,500 Unit FEEDTUBE PRN PRN For Clogged Feeding Tube Dextrose 0 ml 11/04/18 15:40 D50w (25gm) Syringe IV PRN PRN Hypoglycemia Heparin Sodium (Porcine) 5,000 unit 11/04/18 22:00 11/14/18 10:45 Heparin SUB-Q 5,000 unit Q12HR MARIEL Administration Insulin Glargine 45 units 11/13/18 22:00 11/13/18 22:00 Lantus SUB-Q 45 units QHS MARIEL Administration Insulin Human Lispro 0 unit 11/05/18 17:00 11/14/18 09:06 Humalog SUB-Q 4 unit Q4H MARIEL Administration Protocol Lansoprazole 30 mg 11/08/18 10:00 11/14/18 10:45 Prevacid Solutab FEEDTUBE 30 mg BID MARIEL Administration Simple Syrup 15 ml 11/06/18 15:57 Simple Syrup FEEDTUBE PRN PRN Hypoglycemia Simple Syrup 30 ml 11/06/18 15:57 Simple Syrup FEEDTUBE PRN PRN Hypoglycemia Sodium Bicarbonate 325 mg 11/06/18 15:57 Sodium Bicarbonate FEEDTUBE PRN PRN For Clogged Feeding Tube Sodium Chloride 10 ml 11/04/18 22:00 11/14/18 10:45 Sodium Chloride Flush Syringe 10 Ml IV 10 ml BID MARIEL Administration Sodium Chloride 10 ml 11/04/18 17:42 Sodium Chloride Flush Syringe 10 Ml IV PRN PRN LINE FLUSH Tamsulosin HCl 0.4 mg 11/07/18 13:00 11/14/18 10:45 Flomax PO 0.4 mg QDAY MARIEL Administration
[2018-11-14] MEDS: LANTUS SUB-Q SCH (21:27)
[2018-11-15] MEDS: HumaLOG SUB-Q SCH ×6 (01:19→21:00)
[2018-11-15 04:28] LABS: Alanine Aminotransferase 15 units/L (7-56); Albumin 2.2 g/dL (3.9-5); BUN/Creatinine Ratio 31; Blood Urea Nitrogen 22 mg/dL (9-20); Calcium 8.3 mg/dL (8.4-10.2); Hemolysis Index 0
[2018-11-15 05:10] LABS: Hematocrit 26.8 % (35.5-45.6); Hemoglobin 9.2 gm/dl (11.8-15.2); Lymphocytes % (Auto) 15.8 % (13.4-35.0); Mean Corpuscular HGB Conc 34 % (32-34); Mean Corpuscular Volume 88 fl (84-94); Mean Platelet Volume 6.7 fl (6-12); Red Blood Count 3.03 M/mm3 (3.65-5.03); Red Cell Distribution Width 13.1 % (13.2-15.2)
[2018-11-15 05:11] LABS: Basophils # (Auto) 0.1 K/mm3 (0.0-0.1); Basophils % (Auto) 0.7 % (0.0-1.8); Eosinophils # (Auto) 0.1 K/mm3 (0.0-0.4); Lymphocytes # (Auto) 1.2 K/mm3 (1.2-5.4); Monocytes % (Auto) 7.5 % (0.0-7.3)
[2018-11-15 06:45] LABS: Platelet Count 831 K/mm3 (140-440)
--- NOTE | 2018-11-15 07:42 | Fluoroscopy Report ---
MODIFIED BARIUM SWALLOW INDICATION: Dysphagia, evaluate swallowing. TECHNIQUE: Swallowing was evaluated in the lateral position under direct fluoroscopy. FINDINGS: The patient was evaluated with thin liquids, puree, semisolids and solids.. No aspiration was witnessed. Premature spillage was noted on all consistencies. Vallecular stasis was also noted on all consistencies which cleared with a second swallow. There was delayed oral transit on semisolids and solids. Please refer to the formal report by speech pathology. IMPRESSION: No evidence for aspiration. Fluoroscopic time: 2.5 minutes Number of fluoroscopic images: 1 Signer Name: César Loomis Jr, MD Signed: 11/15/2018 7:37 AM Workstation Name: [id number]
--- NOTE | 2018-11-15 09:30 | Progress Note ---
Assessment and Plan 53 YO Male with DM presents to ED for evaluation. Pt is stuporous st time of my exam and unable to provide history. Pt history taken from EMS as well as ED staff. As per staff, the patient found down and unresponsive in his home. Pt last contact with family was 5 days ago. At that time the patient was in his usual state of health. A well check was conducted, and the patient was unable to answer the door. Law Enforcement was contacted, and gained entry into the home. The patient was subsequently found down, and unresponsive and lying on the kitchen floor covered in fecal matter. EMS notified, and upon arrival the patient was found to have a serum glucose above 500, and in distress. Pt transported to [facility]. Pt seen and evaluated in ED and found to have DKA, Metabolic Encephalopathy, Sepsis suspected secondary to UTI, Rhabdomyolysis, Acidosis, and Acute Kidney Injury. Pt admitted to ICU and initiated on Sepsis protocol, as well as DKA protocol. Nephrology consulted in ED. Pulmonary team consulted in ED. No further history obtainable. No prior admission for review. No medication listed at time of admission for reconciliation. Patient was then admitted and commenced on DKA protocol. Glucose 1088 on admit, now 195. BUN 200 on admit, now 98. Found to be hypernatremic with improved glycemic control. Low T4 and elevarted TSH levels - Metabolic encephalopathy - improving. Follows all commands - Debilitation from prolonged illness PT/OT - Sepsis - resolved Dysphagia Still on NGT Repaet swallowing aval - Fever and white count since resolved. Unclear etiology of sepsis as all cultures are negative. Would continue to levofloxacin for now while blood cultures continue to incubate. Possible UTI, UA with pyuria but otherwise not significant. UCx negative. - T2DM s/p resolved DKA. Continue with SSI Accu-Check NGT feeding - Dysphagia Failed swallowing study Will repeat in view of his improved clinical status - Milk hyperkalemia corrected - JAVY due to vasomotor nephropathy - improving IV hydration Nephrology consulted and following - Hypernatremia -improved continue free water via NG tube - Hypothyroidism Supplement thyroid - UTI will continue levofloxacin. Urine Cx no growth so far - Rhabdomylosis - improving Cautious IV hydration Serial CK levels - Dark stool - resolved iv pentaprazole GI consult input appreciated - DVT and GI prophylaxis with Lovenox and omeprazole - CODE STATUS: Patient is full code - Disposition: Discused with Case Mx. [facility] - Time spent: 25 min minutes Subjective Date of service: 11/15/18 Principal diagnosis: Ac hypoxemic resp failure; Severe sepsis; DKA; JAVY; Ac encephalopathy; UTI Interval history: Patient seen and examined. Alert and oriented x 3. Moved his arms but weak on his lower extremities. Still on NGT feeding Objective - Exam Narrative Exam: Constitutional: Alert adn oriented x 3. Very interactive. Still Ill-looking Head: Normocephalic atraumatic Eyes: Pupils are equal round and reactive to light Nose: No enlarged turbinates, no septal deviation. Mouth: Moist mucous membranes. ON NGT feeding Neck: Supple no thyromegaly. No bruit. No JVD Heart: Regular rate and rhythm, S1-S2 normal. No rubs murmurs or gallop Lungs: Clear to auscultation bilaterally. no rales or rhonchi Abdomen: Soft, nontender. Bowel sound are present. Extremities: No edema, no cyanosis, no clubbing. skin ulcers Neuro:AxO x3 . Answers all short question appropriately. weak only in both LEs Skin: Skin ulcer in the lower extrmities Musculoskeletal system: No joint pain or swelling Hematological: No petechia or subcutanous hemorrhages. Immunological: No multiple septic spots on the skin Lymphatic: No generalized lymphadenopathy Psychiatry: No depression - Constitutional Vitals: Vital Signs - 12hr 11/14/18 11/14/18 11/15/18 22:00 23:00 00:00 Temperature 97.6 F Pulse Rate 82 94 H 88 Pulse Rate [ 85 From Monitor] Respiratory 17 19 14 Rate Blood Pressure 113/61 101/54 101/57 O2 Sat by Pulse 96 96 95 Oximetry 11/15/18 11/15/18 11/15/18 01:00 02:00 03:00 Temperature Pulse Rate 85 87 89 Pulse Rate [ From Monitor] Respiratory 15 16 17 Rate Blood Pressure 103/65 110/61 115/71 O2 Sat by Pulse 95 94 Oximetry 11/15/18 11/15/18 11/15/18 04:00 05:00 06:00 Temperature 98.7 F Pulse Rate 88 93 H 90 Pulse Rate [ 90 From Monitor] Respiratory 22 28 H 19 Rate Blood Pressure 100/55 110/61 O2 Sat by Pulse 95 96 95 Oximetry 11/15/18 11/15/18 07:00 08:53 Temperature Pulse Rate 87 Pulse Rate [ From Monitor] Respiratory 16 Rate Blood Pressure 118/71 O2 Sat by Pulse 95 95 Oximetry - Labs CBC & Chem 7: 11/15/18 03:58 11/15/18 03:58 Labs: Abnormal lab results 11/14/18 11/14/18 11/14/18 Range/Units 14:21 17:06 21:08 RBC (3.65-5.03) M/mm3 Hgb (11.8-15.2) gm/dl Hct (35.5-45.6) % RDW (13.2-15.2) % Plt Count (140-440) K/mm3 [place] % (Auto) (0.0-7.3) % Seg Neutrophils % (40.0-70.0) % Sodium (137-145) mmol/L Chloride (98-107) mmol/L Carbon Dioxide (22-30) mmol/L BUN (9-20) mg/dL Creatinine (0.8-1.5) mg/dL Glucose (75-100) mg/dL POC Glucose 270 H 264 H 257 H (70-105) Calcium (8.4-10.2) mg/dL Total Protein (6.3-8.2) g/dL Albumin (3.9-5) g/dL 11/15/18 11/15/18 11/15/18 Range/Units 01:16 03:58 03:58 RBC 3.03 L (3.65-5.03) M/mm3 Hgb 9.2 L (11.8-15.2) gm/dl Hct 26.8 L (35.5-45.6) % RDW 13.1 L (13.2-15.2) % Plt Count 831 H (140-440) K/mm3 [place] % (Auto) 7.5 H (0.0-7.3) % Seg Neutrophils % 75.0 H (40.0-70.0) % Sodium 148 H (137-145) mmol/L Chloride 108.5 H (98-107) mmol/L Carbon Dioxide 31 H (22-30) mmol/L BUN 22 H (9-20) mg/dL Creatinine 0.7 L (0.8-1.5) mg/dL Glucose 184 H (75-100) mg/dL POC Glucose 214 H (70-105) Calcium 8.3 L (8.4-10.2) mg/dL Total Protein 5.6 L (6.3-8.2) g/dL Albumin 2.2 L (3.9-5) g/dL 11/15/18 11/15/18 Range/Units 05:01 09:12 RBC (3.65-5.03) M/mm3 Hgb (11.8-15.2) gm/dl Hct (35.5-45.6) % RDW (13.2-15.2) % Plt Count (140-440) K/mm3 [place] % (Auto) (0.0-7.3) % Seg Neutrophils % (40.0-70.0) % Sodium (137-145) mmol/L Chloride (98-107) mmol/L Carbon Dioxide (22-30) mmol/L BUN (9-20) mg/dL Creatinine (0.8-1.5) mg/dL Glucose (75-100) mg/dL POC Glucose 160 H 139 H (70-105) Calcium (8.4-10.2) mg/dL Total Protein (6.3-8.2) g/dL Albumin (3.9-5) g/dL
[2018-11-15] MEDS: HEPARIN SUB-Q SCH ×2 (09:31→21:42)
[2018-11-15] MEDS: FLOMAX PO SCH (09:31)
[2018-11-15] MEDS: SODIUM CHLORIDE FLUSH SYRINGE 10 ML IV SCH ×2 (09:32→21:44)
[2018-11-15] MEDS: PREVACID SOLUTAB FEEDTUBE SCH ×2 (09:32→21:43)
--- NOTE | 2018-11-15 10:55 | Progress Note ---
Assessment and Plan 1. Acute kidney injury: Vasomotor JAVY in the setting of volume depletion and DKA. Renal US was negative for hydro. Renal function is better. Monitor renal function. Avoid nephrotoxic agents. Meds dosage based on GFR. 2. FEN: Hyperkalemia, improved. Hypernatremia, encouraged PO fluids. Metabolic acidosis, improved. Monitor lytes. 3. DKA: Improved. 4. Hyperglycemia: Improving. 5. Sepsis: Treated. 6. Metabolic Encephalopathy: Improving. Subjective Date of service: 11/15/18 Principal diagnosis: Ac hypoxemic resp failure; Severe sepsis; DKA; JAVY; Ac encephalopathy; UTI Interval history: Patient was seen and examined at the bedside. No new complaint. Objective - Vital Signs Vital signs: Vital Signs - 12hr 11/14/18 11/15/18 11/15/18 23:00 00:00 01:00 Temperature 97.6 F Pulse Rate 94 H 88 85 Pulse Rate [ 85 From Monitor] Respiratory 19 14 15 Rate Blood Pressure 101/54 101/57 103/65 O2 Sat by Pulse 96 95 95 Oximetry 11/15/18 11/15/18 11/15/18 02:00 03:00 04:00 Temperature 98.7 F Pulse Rate 87 89 88 Pulse Rate [ 90 From Monitor] Respiratory 16 17 22 Rate Blood Pressure 110/61 115/71 100/55 O2 Sat by Pulse 94 95 Oximetry 11/15/18 11/15/18 11/15/18 05:00 06:00 07:00 Temperature Pulse Rate 93 H 90 87 Pulse Rate [ From Monitor] Respiratory 28 H 19 16 Rate Blood Pressure 110/61 118/71 O2 Sat by Pulse 96 95 95 Oximetry 11/15/18 08:53 Temperature Pulse Rate Pulse Rate [ From Monitor] Respiratory Rate Blood Pressure O2 Sat by Pulse 95 Oximetry - General Appearance General appearance: well-developed, appears stated age, other (no distress) EENT: ATNC, PERRL, hearing intact, vision intact Neck: supple Respiratory: Present: Clear to Ascultation Cardiology: regular, S1S2, no murmurs Gastrointestinal: normoactive bowel sounds, no tenderness, no distended Integumentary: no rash, warm and dry Neurologic: no focal deficit, no asterixis, alert and oriented x3 Musculoskeletal: other (no edema) Psychiatric: cooperative - Lab 11/15/18 03:58 11/15/18 03:58 Most recent lab results Calcium 8.3 mg/dL (8.4-10.2) L 11/15/18 03:58 Phosphorus 3.70 mg/dL (2.5-4.5) 11/13/18 04:15 Magnesium 2.50 mg/dL (1.7-2.3) H 11/07/18 04:13 58.1 mg/dL (0.1-20.0) H 11/04/18 20:55 34 mmol/L 11/04/18 20:55 Medications & Allergies - Medications Allergies/Adverse Reactions: Allergies No Known Allergies Allergy (Unverified 11/04/18 15:22) Home Medications: Home Medications Medication Instructions Recorded Confirmed Last Taken Type Glimepiride 4 mg PO BID 11/06/18 11/06/18 Unknown History HYDROcodone/ACETAMINOPHEN 5 - 325 mg PO Q4-6H PRN 11/06/18 11/06/18 Unknown History Ibuprofen 800 mg PO Q8HR PRN 11/06/18 11/06/18 Unknown History Lisinopril 2.5 mg PO DAILY 11/06/18 11/06/18 Unknown History Metformin HCl 1,000 mg PO BID 11/06/18 11/06/18 Unknown History NovoLIN N 5 unit SUB-Q BID MDD x 90days 11/06/18 11/06/18 Unknown History Pravastatin Sodium 20 mg PO BID 11/06/18 11/06/18 Unknown History glipiZIDE 10 mg PO BID 11/06/18 11/06/18 Unknown History Active Medications: Generic Name Dose Route Start Last Admin Trade Name Tamar PRN Reason Stop Dose Admin Acetaminophen 650 mg 11/09/18 04:21 11/13/18 17:47 Tylenol FEEDTUBE 650 mg Q4H PRN Administration Fever >101 Albuterol 2.5 mg 11/04/18 17:42 Proventil IH Q3H PRN Shortness Of Breath Lipase/Protease/Amylase 1 each 11/06/18 15:57 Pancresue Delacruz 10,500 Unit FEEDTUBE PRN PRN For Clogged Feeding Tube Dextrose 0 ml 11/04/18 15:40 D50w (25gm) Syringe IV PRN PRN Hypoglycemia Heparin Sodium (Porcine) 5,000 unit 11/04/18 22:00 11/15/18 09:31 Heparin SUB-Q 5,000 unit Q12HR MARIEL Administration Insulin Glargine 45 units 11/13/18 22:00 11/14/18 21:27 Lantus SUB-Q 45 units QHS MARIEL Administration Insulin Human Lispro 0 unit 11/05/18 17:00 11/15/18 09:30 Humalog SUB-Q Not Given Q4H [facility] Protocol Lansoprazole 30 mg 11/08/18 10:00 11/15/18 09:32 Prevacid Solutab FEEDTUBE 30 mg BID MARIEL Administration Simple Syrup 15 ml 11/06/18 15:57 Simple Syrup FEEDTUBE PRN PRN Hypoglycemia Simple Syrup 30 ml 11/06/18 15:57 Simple Syrup FEEDTUBE PRN PRN Hypoglycemia Sodium Bicarbonate 325 mg 11/06/18 15:57 Sodium Bicarbonate FEEDTUBE PRN PRN For Clogged Feeding Tube Sodium Chloride 10 ml 11/04/18 22:00 11/15/18 09:32 Sodium Chloride Flush Syringe 10 Ml IV 10 ml BID MARIEL Administration Sodium Chloride 10 ml 11/04/18 17:42 Sodium Chloride Flush Syringe 10 Ml IV PRN PRN LINE FLUSH Tamsulosin HCl 0.4 mg 11/07/18 13:00 11/15/18 09:31 Flomax PO 0.4 mg QDAY MARIEL Administration
--- NOTE | 2018-11-15 13:47 | Progress Note ---
Assessment and Plan Patient is awake. Resting on room air. O2 saturation 95% on room air. No complaint of chest pain, shortness of breath or cough. Patients O2 saturation dropping to 86% on standing up. Recommend O2 2 litres. Patient is also candidate for home O2.Swallow test reported no aspiration. - Patient Problems (1) ARF (acute renal failure) Current Visit: Yes Status: Acute Plan to address problem: Management as per nephrology. (2) Acidosis Current Visit: Yes Status: Acute Plan to address problem: Improved. Repeat blood gases ordered, but not done. (3) DKA (diabetic ketoacidoses) Current Visit: Yes Status: Acute Plan to address problem: Improved. Management as per primary care. (4) Hypothyroidism Current Visit: Yes Status: Acute Qualifiers: Hypothyroidism type: unspecified Qualified Code(s): E03.9 - Hypothyroidism, unspecified Plan to address problem: Management as per primary care. Subjective Date of service: 11/15/18 Principal diagnosis: Ac hypoxemic resp failure; Severe sepsis; DKA; JAVY; Ac encephalopathy; UTI Interval history: Patient is awake. Resting on room air. O2 saturation 95% on room air. No complaint of chest pain, shortness of breath or cough. Patients O2 saturation dropping to 86% on standing up. Recommend O2 2 litres. Patient is also candidate for home O2. [place] test reported no aspiration. Objective Vital Signs - 12hr 11/15/18 11/15/18 11/15/18 02:00 03:00 04:00 Temperature 98.7 F Pulse Rate 87 89 88 Pulse Rate [ 90 From Monitor] Respiratory 16 17 22 Rate Blood Pressure 110/61 115/71 100/55 O2 Sat by Pulse 94 95 Oximetry 11/15/18 11/15/18 11/15/18 05:00 06:00 07:00 Temperature Pulse Rate 93 H 90 87 Pulse Rate [ From Monitor] Respiratory 28 H 19 16 Rate Blood Pressure 110/61 118/71 O2 Sat by Pulse 96 95 95 Oximetry 11/15/18 11/15/18 11/15/18 08:00 08:53 09:00 Temperature 97.2 F L Pulse Rate 89 92 H Pulse Rate [ 87 From Monitor] Respiratory 19 26 H Rate Blood Pressure 109/66 120/71 O2 Sat by Pulse 93 95 95 Oximetry 11/15/18 11/15/18 11/15/18 10:00 11:00 12:00 Temperature 98.2 F Pulse Rate 91 H Pulse Rate [ From Monitor] Respiratory 20 Rate Blood Pressure 114/64 126/82 O2 Sat by Pulse 94 96 Oximetry Constitutional: no acute distress, alert Eyes: non-icteric Neck: supple, no lymphadenopathy Ascultation: Bilateral: clear Cardiovascular: regular rate and rhythm Gastrointestinal: normoactive bowel sounds Integumentary: normal Extremities: no cyanosis, no edema Neurologic: normal mental status, non-focal exam, pupils equal and round, CN II- XII normal Psychiatric: depressed CBC and BMP: 11/15/18 03:58 11/15/18 03:58 ABG, PT/INR, D-dimer: ABG POC ABG pH 7.432 (7.35-7.45) 11/05/18 17:08 POC ABG pCO2 32.3 (35-45) L 11/05/18 17:08 POC ABG HCO3 21.5 (22-26 mml/L) 11/05/18 17:08 POC ABG Total CO2 23 (23-27mmol/L) 11/05/18 17:08 POC ABG O2 Sat 85 11/05/18 17:08 PT/INR, D-dimer PT 15.6 Sec. (12.2-14.9) H 11/04/18 16:05 INR 1.27 (0.87-1.13) H 11/04/18 16:05 Abnormal lab findings: Abnormal Labs 11/04/18 11/04/18 11/04/18 15:23 15:35 16:05 WBC 12.6 H RBC Hgb Hct RDW Plt Count Lymph % (Auto) [place] % (Auto) Lymph # Seg Neutrophils % Seg Neuts % (Manual) 84.0 H Lymphocytes % (Manual) 1.0 L Seg Neutrophils # Seg Neutrophils # Man 10.6 H Lymphocytes # (Manual) 0.1 L PT INR POC ABG pCO2 VBG pH Sodium Potassium Chloride Carbon Dioxide BUN Creatinine Glucose POC Glucose > 500 H Lactic Acid Calcium Ionized Calcium Phosphorus Magnesium AST Total Creatine Kinase C-Reactive Protein Total Protein Albumin TSH Free T4 PTH Intact Urine WBC (Auto) 12.0 H Urine Creatinine Salicylates Acetaminophen 11/04/18 11/04/18 11/04/18 16:05 16:05 16:05 WBC RBC Hgb Hct RDW Plt Count Lymph % (Auto) [place] % (Auto) Lymph # Seg Neutrophils % Seg Neuts % (Manual) Lymphocytes % (Manual) Seg Neutrophils # Seg Neutrophils # Man Lymphocytes # (Manual) PT 15.6 H INR 1.27 H POC ABG pCO2 VBG pH Sodium 153 H Potassium 6.2 H* Chloride Carbon Dioxide 18 L BUN 200 H Creatinine 6.8 H Glucose 1088 H* POC Glucose Lactic Acid 2.80 H* Calcium 7.2 L Ionized Calcium Phosphorus Magnesium AST Total Creatine Kinase C-Reactive Protein Total Protein Albumin 3.1 L TSH Free T4 PTH Intact Urine WBC (Auto) Urine Creatinine Salicylates Acetaminophen 11/04/18 11/04/18 11/04/18 16:05 16:05 16:05 WBC RBC Hgb Hct RDW Plt Count Lymph % (Auto) [place] % (Auto) Lymph # Seg Neutrophils % Seg Neuts % (Manual) Lymphocytes % (Manual) Seg Neutrophils # Seg Neutrophils # Man Lymphocytes # (Manual) PT INR POC ABG pCO2 VBG pH 7.245 L Sodium Potassium Chloride Carbon Dioxide BUN Creatinine Glucose POC Glucose Lactic Acid Calcium Ionized Calcium Phosphorus 13.80 H Magnesium 3.60 H AST Total Creatine Kinase C-Reactive Protein Total Protein Albumin TSH 0.169 L Free T4 0.68 L PTH Intact Urine WBC (Auto) Urine Creatinine Salicylates Acetaminophen 11/04/18 11/04/18 11/04/18 16:05 16:48 19:40 WBC RBC Hgb Hct RDW Plt Count Lymph % (Auto) [place] % (Auto) Lymph # Seg Neutrophils % Seg Neuts % (Manual) Lymphocytes % (Manual) Seg Neutrophils # Seg Neutrophils # Man Lymphocytes # (Manual) PT INR POC ABG pCO2 VBG pH Sodium Potassium Chloride Carbon Dioxide BUN Creatinine Glucose POC Glucose > 500 H 458 H Lactic Acid Calcium Ionized Calcium Phosphorus Magnesium AST Total Creatine Kinase 1857 H C-Reactive Protein Total Protein Albumin TSH Free T4 PTH Intact Urine WBC (Auto) Urine Creatinine Salicylates Acetaminophen 11/04/18 11/04/18 11/04/18 20:29 20:29 20:29 WBC RBC Hgb Hct RDW Plt Count Lymph % (Auto) [place] % (Auto) Lymph # Seg Neutrophils % Seg Neuts % (Manual) Lymphocytes % (Manual) Seg Neutrophils # Seg Neutrophils # Man Lymphocytes # (Manual) PT INR POC ABG pCO2 VBG pH Sodium 163 H* D Potassium Chloride 121.4 H Carbon Dioxide 21 L BUN 166 H Creatinine 5.6 H Glucose 513 H* POC Glucose Lactic Acid 3.30 H* 3.30 H* Calcium 6.4 L Ionized Calcium Phosphorus Magnesium AST Total Creatine Kinase C-Reactive Protein Total Protein Albumin TSH Free T4 PTH Intact Urine WBC (Auto) Urine Creatinine Salicylates Acetaminophen 11/04/18 11/04/18 11/04/18 20:55 21:03 22:00 WBC RBC Hgb Hct RDW Plt Count Lymph % (Auto) [place] % (Auto) Lymph # Seg Neutrophils % Seg Neuts % (Manual) Lymphocytes % (Manual) Seg Neutrophils # Seg Neutrophils # Man Lymphocytes # (Manual) PT INR POC ABG pCO2 VBG pH Sodium Potassium Chloride Carbon Dioxide BUN Creatinine Glucose POC Glucose 496 H Lactic Acid 3.60 H* Calcium Ionized Calcium Phosphorus Magnesium AST Total Creatine Kinase C-Reactive Protein Total Protein Albumin TSH Free T4 PTH Intact Urine WBC (Auto) Urine Creatinine 58.1 H Salicylates Acetaminophen 11/04/18 11/04/18 11/04/18 22:04 23:07 23:47 WBC RBC Hgb Hct RDW Plt Count Lymph % (Auto) [place] % (Auto) Lymph # Seg Neutrophils % Seg Neuts % (Manual) Lymphocytes % (Manual) Seg Neutrophils # Seg Neutrophils # Man Lymphocytes # (Manual) PT INR POC ABG pCO2 VBG pH Sodium 170 H* Potassium Chloride 127.1 H Carbon Dioxide BUN 164 H Creatinine 5.2 H Glucose 213 H POC Glucose 357 H 306 H Lactic Acid Calcium 6.5 L Ionized Calcium Phosphorus Magnesium AST Total Creatine Kinase C-Reactive Protein Total Protein Albumin TSH Free T4 PTH Intact Urine WBC (Auto) Urine Creatinine Salicylates Acetaminophen 11/04/18 11/05/18 11/05/18 23:47 00:04 00:09 WBC RBC Hgb Hct RDW Plt Count Lymph % (Auto) [place] % (Auto) Lymph # Seg Neutrophils % Seg Neuts % (Manual) Lymphocytes % (Manual) Seg Neutrophils # Seg Neutrophils # Man Lymphocytes # (Manual) PT INR POC ABG pCO2 VBG pH Sodium 163 H* Potassium Chloride 127.5 H Carbon Dioxide BUN 117 H Creatinine 3.3 H Glucose 235 H POC Glucose 219 H Lactic Acid 3.20 H* Calcium 6.8 L Ionized Calcium Phosphorus Magnesium AST Total Creatine Kinase C-Reactive Protein Total Protein Albumin TSH Free T4 PTH Intact Urine WBC (Auto) Urine Creatinine Salicylates Acetaminophen 11/05/18 11/05/18 11/05/18 00:59 03:13 03:52 WBC RBC Hgb Hct RDW Plt Count Lymph % (Auto) [place] % (Auto) Lymph # Seg Neutrophils % Seg Neuts % (Manual) Lymphocytes % (Manual) Seg Neutrophils # Seg Neutrophils # Man Lymphocytes # (Manual) PT INR POC ABG pCO2 VBG pH Sodium Potassium Chloride Carbon Dioxide BUN Creatinine Glucose POC Glucose 204 H 124 H Lactic Acid Calcium Ionized Calcium Phosphorus Magnesium AST Total Creatine Kinase 1680 H C-Reactive Protein Total Protein Albumin TSH Free T4 PTH Intact Urine WBC (Auto) Urine Creatinine Salicylates Acetaminophen 11/05/18 11/05/18 11/05/18 03:52 04:25 05:11 WBC RBC Hgb Hct RDW Plt Count Lymph % (Auto) [place] % (Auto) Lymph # Seg Neutrophils % Seg Neuts % (Manual) Lymphocytes % (Manual) Seg Neutrophils # Seg Neutrophils # Man Lymphocytes # (Manual) PT INR POC ABG pCO2 VBG pH Sodium 169 H* Potassium Chloride 126.2 H Carbon Dioxide BUN 156 H Creatinine 4.7 H Glucose 128 H POC Glucose 150 H 173 H Lactic Acid Calcium 6.3 L Ionized Calcium Phosphorus Magnesium AST Total Creatine Kinase C-Reactive Protein Total Protein Albumin TSH Free T4 PTH Intact Urine WBC (Auto) Urine Creatinine Salicylates Acetaminophen 11/05/18 11/05/18 11/05/18 06:05 06:58 07:48 WBC RBC Hgb Hct RDW Plt Count Lymph % (Auto) [place] % (Auto) Lymph # Seg Neutrophils % Seg Neuts % (Manual) Lymphocytes % (Manual) Seg Neutrophils # Seg Neutrophils # Man Lymphocytes # (Manual) PT INR POC ABG pCO2 VBG pH Sodium Potassium Chloride Carbon Dioxide BUN Creatinine Glucose POC Glucose 136 H 152 H 177 H Lactic Acid Calcium Ionized Calcium Phosphorus Magnesium AST Total Creatine Kinase C-Reactive Protein Total Protein Albumin TSH Free T4 PTH Intact Urine WBC (Auto) Urine Creatinine Salicylates Acetaminophen 11/05/18 11/05/18 11/05/18 08:21 08:21 08:23 WBC RBC Hgb Hct RDW Plt Count Lymph % (Auto) [place] % (Auto) Lymph # Seg Neutrophils % Seg Neuts % (Manual) Lymphocytes % (Manual) Seg Neutrophils # Seg Neutrophils # Man Lymphocytes # (Manual) PT INR POC ABG pCO2 VBG pH Sodium 171 H* Potassium Chloride 128.9 H Carbon Dioxide BUN 149 H Creatinine 4.5 H Glucose 159 H POC Glucose 157 H Lactic Acid Calcium 6.7 L Ionized Calcium Phosphorus Magnesium AST Total Creatine Kinase C-Reactive Protein Total Protein Albumin TSH Free T4 PTH Intact 119.3 H Urine WBC (Auto) Urine Creatinine Salicylates Acetaminophen 11/05/18 11/05/18 11/05/18 10:21 11:12 12:37 WBC RBC Hgb Hct RDW Plt Count Lymph % (Auto) [place] % (Auto) Lymph # Seg Neutrophils % Seg Neuts % (Manual) Lymphocytes % (Manual) Seg Neutrophils # Seg Neutrophils # Man Lymphocytes # (Manual) PT INR POC ABG pCO2 VBG pH Sodium Potassium Chloride Carbon Dioxide BUN Creatinine Glucose POC Glucose 171 H 155 H 145 H Lactic Acid Calcium Ionized Calcium Phosphorus Magnesium AST Total Creatine Kinase C-Reactive Protein Total Protein Albumin TSH Free T4 PTH Intact Urine WBC (Auto) Urine Creatinine Salicylates Acetaminophen 11/05/18 11/05/18 11/05/18 13:24 13:47 14:42 WBC RBC Hgb Hct RDW Plt Count Lymph % (Auto) [place] % (Auto) Lymph # Seg Neutrophils % Seg Neuts % (Manual) Lymphocytes % (Manual) Seg Neutrophils # Seg Neutrophils # Man Lymphocytes # (Manual) PT INR POC ABG pCO2 VBG pH Sodium 167 H* Potassium Chloride 131.6 H Carbon Dioxide BUN 130 H Creatinine 3.8 H Glucose 136 H POC Glucose 137 H 133 H Lactic Acid Calcium 6.4 L Ionized Calcium Phosphorus Magnesium AST Total Creatine Kinase C-Reactive Protein Total Protein Albumin TSH Free T4 PTH Intact Urine WBC (Auto) Urine Creatinine Salicylates Acetaminophen 11/05/18 11/05/18 11/05/18 16:55 17:08 18:14 WBC RBC Hgb Hct RDW Plt Count Lymph % (Auto) [place] % (Auto) Lymph # Seg Neutrophils % Seg Neuts % (Manual) Lymphocytes % (Manual) Seg Neutrophils # Seg Neutrophils # Man Lymphocytes # (Manual) PT INR POC ABG pCO2 32.3 L VBG pH Sodium Potassium Chloride Carbon Dioxide BUN Creatinine Glucose POC Glucose 194 H 195 H Lactic Acid Calcium Ionized Calcium Phosphorus Magnesium AST Total Creatine Kinase C-Reactive Protein Total Protein Albumin TSH Free T4 PTH Intact Urine WBC (Auto) Urine Creatinine Salicylates Acetaminophen 11/05/18 11/05/18 11/05/18 18:35 18:35 18:35 WBC RBC Hgb Hct RDW Plt Count Lymph % (Auto) [place] % (Auto) Lymph # Seg Neutrophils % Seg Neuts % (Manual) Lymphocytes % (Manual) Seg Neutrophils # Seg Neutrophils # Man Lymphocytes # (Manual) PT INR POC ABG pCO2 VBG pH Sodium Potassium Chloride Carbon Dioxide BUN Creatinine Glucose POC Glucose Lactic Acid Calcium Ionized Calcium Phosphorus Magnesium AST Total Creatine Kinase C-Reactive Protein 19.50 H Total Protein Albumin TSH Free T4 PTH Intact Urine WBC (Auto) Urine Creatinine Salicylates < 0.3 L Acetaminophen < 5.0 L 11/05/18 11/06/18 11/06/18 21:09 01:36 04:50 WBC RBC Hgb 11.3 L Hct 32.8 L D RDW Plt Count 110 L Lymph % (Auto) [place] % (Auto) Lymph # Seg Neutrophils % Seg Neuts % (Manual) Lymphocytes % (Manual) Seg Neutrophils # Seg Neutrophils # Man Lymphocytes # (Manual) PT INR POC ABG pCO2 VBG pH Sodium Potassium Chloride Carbon Dioxide BUN Creatinine Glucose POC Glucose 250 H 289 H Lactic Acid Calcium Ionized Calcium Phosphorus Magnesium AST Total Creatine Kinase C-Reactive Protein Total Protein Albumin TSH Free T4 PTH Intact Urine WBC (Auto) Urine Creatinine Salicylates Acetaminophen 11/06/18 11/06/18 11/06/18 04:50 04:50 05:14 WBC RBC Hgb Hct RDW Plt Count Lymph % (Auto) [place] % (Auto) Lymph # Seg Neutrophils % Seg Neuts % (Manual) Lymphocytes % (Manual) Seg Neutrophils # Seg Neutrophils # Man Lymphocytes # (Manual) PT INR POC ABG pCO2 VBG pH Sodium 165 H* 164 H* Potassium Chloride 127.4 H Carbon Dioxide BUN 113 H Creatinine 3.2 H Glucose 208 H POC Glucose 215 H Lactic Acid Calcium 6.8 L Ionized Calcium Phosphorus Magnesium AST 55 H Total Creatine Kinase C-Reactive Protein Total Protein 5.2 L D Albumin 2.3 L TSH Free T4 PTH Intact Urine WBC (Auto) Urine Creatinine Salicylates Acetaminophen 11/06/18 11/06/18 11/06/18 07:50 08:50 12:16 WBC RBC Hgb Hct RDW Plt Count Lymph % (Auto) [place] % (Auto) Lymph # Seg Neutrophils % Seg Neuts % (Manual) Lymphocytes % (Manual) Seg Neutrophils # Seg Neutrophils # Man Lymphocytes # (Manual) PT INR POC ABG pCO2 VBG pH Sodium 161 H* Potassium Chloride 126.0 H Carbon Dioxide BUN 111 H Creatinine 3.0 H Glucose 187 H POC Glucose 239 H 198 H Lactic Acid Calcium 7.0 L Ionized Calcium Phosphorus Magnesium AST Total Creatine Kinase C-Reactive Protein Total Protein Albumin TSH Free T4 PTH Intact Urine WBC (Auto) Urine Creatinine Salicylates Acetaminophen 11/06/18 11/06/18 11/06/18 15:42 15:42 17:59 WBC RBC Hgb Hct RDW Plt Count Lymph % (Auto) [place] % (Auto) Lymph # Seg Neutrophils % Seg Neuts % (Manual) Lymphocytes % (Manual) Seg Neutrophils # Seg Neutrophils # Man Lymphocytes # (Manual) PT INR POC ABG pCO2 VBG pH Sodium 162 H* Potassium Chloride 127.3 H Carbon Dioxide BUN 98 H Creatinine 2.7 H Glucose 195 H POC Glucose 225 H Lactic Acid Calcium 7.1 L Ionized Calcium 4.4 L Phosphorus Magnesium AST Total Creatine Kinase C-Reactive Protein Total Protein Albumin TSH Free T4 PTH Intact Urine WBC (Auto) Urine Creatinine Salicylates Acetaminophen 11/06/18 11/06/18 11/06/18 21:21 21:24 21:24 WBC RBC Hgb 11.0 L Hct 33.4 L RDW Plt Count Lymph % (Auto) [place] % (Auto) Lymph # Seg Neutrophils % Seg Neuts % (Manual) Lymphocytes % (Manual) Seg Neutrophils # Seg Neutrophils # Man Lymphocytes # (Manual) PT INR POC ABG pCO2 VBG pH Sodium Potassium Chloride Carbon Dioxide BUN Creatinine Glucose POC Glucose 272 H Lactic Acid Calcium Ionized Calcium Phosphorus Magnesium AST Total Creatine Kinase 3538 H C-Reactive Protein Total Protein Albumin TSH Free T4 PTH Intact Urine WBC (Auto) Urine Creatinine Salicylates Acetaminophen 11/07/18 11/07/18 11/07/18 02:01 04:13 04:13 WBC RBC Hgb 11.4 L Hct 33.8 L RDW Plt Count 103 L Lymph % (Auto) [place] % (Auto) Lymph # Seg Neutrophils % Seg Neuts % (Manual) 83.0 H Lymphocytes % (Manual) 6.0 L Seg Neutrophils # Seg Neutrophils # Man Lymphocytes # (Manual) 0.6 L PT INR POC ABG pCO2 VBG pH Sodium 161 H* Potassium Chloride 125.8 H Carbon Dioxide BUN 80 H Creatinine 2.4 H Glucose 246 H POC Glucose 282 H Lactic Acid Calcium 7.4 L Ionized Calcium Phosphorus Magnesium 2.50 H AST 106 H Total Creatine Kinase C-Reactive Protein Total Protein 5.7 L Albumin 2.0 L TSH Free T4 PTH Intact Urine WBC (Auto) Urine Creatinine Salicylates Acetaminophen 11/07/18 11/07/18 11/07/18 04:13 05:17 09:15 WBC RBC Hgb Hct RDW Plt Count Lymph % (Auto) [place] % (Auto) Lymph # Seg Neutrophils % Seg Neuts % (Manual) Lymphocytes % (Manual) Seg Neutrophils # Seg Neutrophils # Man Lymphocytes # (Manual) PT INR POC ABG pCO2 VBG pH Sodium Potassium Chloride Carbon Dioxide BUN Creatinine Glucose POC Glucose 256 H 287 H Lactic Acid Calcium Ionized Calcium Phosphorus Magnesium AST Total Creatine Kinase 2918 H C-Reactive Protein Total Protein Albumin TSH Free T4 PTH Intact Urine WBC (Auto) Urine Creatinine Salicylates Acetaminophen 11/07/18 11/07/18 11/07/18 13:27 15:10 16:38 WBC RBC Hgb 10.2 L Hct 31.2 L RDW Plt Count Lymph % (Auto) [place] % (Auto) Lymph # Seg Neutrophils % Seg Neuts % (Manual) Lymphocytes % (Manual) Seg Neutrophils # Seg Neutrophils # Man Lymphocytes # (Manual) PT INR POC ABG pCO2 VBG pH Sodium Potassium Chloride Carbon Dioxide BUN Creatinine Glucose POC Glucose 281 H 284 H Lactic Acid Calcium Ionized Calcium Phosphorus Magnesium AST Total Creatine Kinase C-Reactive Protein Total Protein Albumin TSH Free T4 PTH Intact Urine WBC (Auto) Urine Creatinine Salicylates Acetaminophen 11/07/18 11/07/18 11/08/18 21:08 21:41 01:24 WBC RBC Hgb 10.2 L Hct 30.8 L RDW Plt Count Lymph % (Auto) [place] % (Auto) Lymph # Seg Neutrophils % Seg Neuts % (Manual) Lymphocytes % (Manual) Seg Neutrophils # Seg Neutrophils # Man Lymphocytes # (Manual) PT INR POC ABG pCO2 VBG pH Sodium Potassium Chloride Carbon Dioxide BUN Creatinine Glucose POC Glucose 349 H 363 H Lactic Acid Calcium Ionized Calcium Phosphorus Magnesium AST Total Creatine Kinase C-Reactive Protein Total Protein Albumin TSH Free T4 PTH Intact Urine WBC (Auto) Urine Creatinine Salicylates Acetaminophen 11/08/18 11/08/18 11/08/18 04:30 04:30 04:30 WBC RBC 3.26 L Hgb 10.2 L Hct 29.9 L RDW Plt Count 103 L Lymph % (Auto) 7.7 L [place] % (Auto) 7.5 H Lymph # 0.8 L Seg Neutrophils % 83.6 H Seg Neuts % (Manual) Lymphocytes % (Manual) Seg Neutrophils # 8.6 H Seg Neutrophils # Man Lymphocytes # (Manual) PT INR POC ABG pCO2 VBG pH Sodium 157 H Potassium 3.5 L Chloride 119.8 H Carbon Dioxide BUN 52 H Creatinine 1.9 H Glucose 244 H POC Glucose Lactic Acid Calcium 7.3 L Ionized Calcium Phosphorus Magnesium AST 88 H Total Creatine Kinase 1829 H C-Reactive Protein Total Protein 4.4 L D Albumin 2.3 L TSH Free T4 PTH Intact Urine WBC (Auto) Urine Creatinine Salicylates Acetaminophen 11/08/18 11/08/18 11/08/18 05:34 09:12 14:20 WBC RBC Hgb Hct RDW Plt Count Lymph % (Auto) [place] % (Auto) Lymph # Seg Neutrophils % Seg Neuts % (Manual) Lymphocytes % (Manual) Seg Neutrophils # Seg Neutrophils # Man Lymphocytes # (Manual) PT INR POC ABG pCO2 VBG pH Sodium Potassium Chloride Carbon Dioxide BUN Creatinine Glucose POC Glucose 250 H 299 H 379 H Lactic Acid Calcium Ionized Calcium Phosphorus Magnesium AST Total Creatine Kinase C-Reactive Protein Total Protein Albumin TSH Free T4 PTH Intact Urine WBC (Auto) Urine Creatinine Salicylates Acetaminophen 11/08/18 11/08/18 11/08/18 14:40 17:14 21:59 WBC RBC Hgb 10.2 L Hct 30.8 L RDW Plt Count Lymph % (Auto) [place] % (Auto) Lymph # Seg Neutrophils % Seg Neuts % (Manual) Lymphocytes % (Manual) Seg Neutrophils # Seg Neutrophils # Man Lymphocytes # (Manual) PT INR POC ABG pCO2 VBG pH Sodium Potassium Chloride Carbon Dioxide BUN Creatinine Glucose POC Glucose 356 H 385 H Lactic Acid Calcium Ionized Calcium Phosphorus Magnesium AST Total Creatine Kinase C-Reactive Protein Total Protein Albumin TSH Free T4 PTH Intact Urine WBC (Auto) Urine Creatinine Salicylates Acetaminophen 11/09/18 11/09/18 11/09/18 00:57 04:33 04:33 WBC RBC 3.20 L Hgb 9.7 L Hct 29.3 L RDW Plt Count 117 L Lymph % (Auto) 8.2 L [place] % (Auto) 7.4 H Lymph # 0.8 L Seg Neutrophils % 83.2 H Seg Neuts % (Manual) Lymphocytes % (Manual) Seg Neutrophils # Seg Neutrophils # Man Lymphocytes # (Manual) PT INR POC ABG pCO2 VBG pH Sodium 148 H D Potassium Chloride 113.2 H Carbon Dioxide BUN 37 H Creatinine Glucose 252 H POC Glucose 362 H Lactic Acid Calcium 7.8 L Ionized Calcium Phosphorus 1.90 L Magnesium AST 52 H Total Creatine Kinase C-Reactive Protein Total Protein 5.3 L D Albumin 1.6 L TSH Free T4 PTH Intact Urine WBC (Auto) Urine Creatinine Salicylates Acetaminophen 11/09/18 11/09/18 11/09/18 05:24 09:15 13:12 WBC RBC Hgb Hct RDW Plt Count Lymph % (Auto) [place] % (Auto) Lymph # Seg Neutrophils % Seg Neuts % (Manual) Lymphocytes % (Manual) Seg Neutrophils # Seg Neutrophils # Man Lymphocytes # (Manual) PT INR POC ABG pCO2 VBG pH Sodium Potassium Chloride Carbon Dioxide BUN Creatinine Glucose POC Glucose 304 H 297 H 300 H Lactic Acid Calcium Ionized Calcium Phosphorus Magnesium AST Total Creatine Kinase C-Reactive Protein Total Protein Albumin TSH Free T4 PTH Intact Urine WBC (Auto) Urine Creatinine Salicylates Acetaminophen 11/09/18 11/09/18 11/10/18 17:35 21:09 00:55 WBC RBC Hgb Hct RDW Plt Count Lymph % (Auto) [place] % (Auto) Lymph # Seg Neutrophils % Seg Neuts % (Manual) Lymphocytes % (Manual) Seg Neutrophils # Seg Neutrophils # Man Lymphocytes # (Manual) PT INR POC ABG pCO2 VBG pH Sodium Potassium Chloride Carbon Dioxide BUN Creatinine Glucose POC Glucose 262 H 213 H 283 H Lactic Acid Calcium Ionized Calcium Phosphorus Magnesium AST Total Creatine Kinase C-Reactive Protein Total Protein Albumin TSH Free T4 PTH Intact Urine WBC (Auto) Urine Creatinine Salicylates Acetaminophen 11/10/18 11/10/18 11/10/18 04:46 04:46 04:46 WBC RBC 3.17 L Hgb 9.6 L Hct 28.7 L RDW Plt Count Lymph % (Auto) 10.3 L [place] % (Auto) 10.0 H Lymph # 0.8 L Seg Neutrophils % 78.6 H Seg Neuts % (Manual) Lymphocytes % (Manual) Seg Neutrophils # Seg Neutrophils # Man Lymphocytes # (Manual) PT INR POC ABG pCO2 VBG pH Sodium 151 H Potassium 3.5 L Chloride 115.1 H Carbon Dioxide BUN 30 H Creatinine Glucose 183 H POC Glucose Lactic Acid Calcium 7.8 L Ionized Calcium Phosphorus Magnesium AST Total Creatine Kinase 408 H C-Reactive Protein Total Protein 5.7 L Albumin 1.8 L TSH Free T4 PTH Intact Urine WBC (Auto) Urine Creatinine Salicylates Acetaminophen 11/10/18 11/10/18 11/10/18 05:12 08:06 11:32 WBC RBC Hgb Hct RDW Plt Count Lymph % (Auto) [place] % (Auto) Lymph # Seg Neutrophils % Seg Neuts % (Manual) Lymphocytes % (Manual) Seg Neutrophils # Seg Neutrophils # Man Lymphocytes # (Manual) PT INR POC ABG pCO2 VBG pH Sodium Potassium Chloride Carbon Dioxide BUN Creatinine Glucose POC Glucose 201 H 195 H 302 H Lactic Acid Calcium Ionized Calcium Phosphorus Magnesium AST Total Creatine Kinase C-Reactive Protein Total Protein Albumin TSH Free T4 PTH Intact Urine WBC (Auto) Urine Creatinine Salicylates Acetaminophen 11/10/18 11/10/18 11/11/18 15:55 21:44 02:06 WBC RBC Hgb Hct RDW Plt Count Lymph % (Auto) [place] % (Auto) Lymph # Seg Neutrophils % Seg Neuts % (Manual) Lymphocytes % (Manual) Seg Neutrophils # Seg Neutrophils # Man Lymphocytes # (Manual) PT INR POC ABG pCO2 VBG pH Sodium Potassium Chloride Carbon Dioxide BUN Creatinine Glucose POC Glucose 292 H 348 H 370 H Lactic Acid Calcium Ionized Calcium Phosphorus Magnesium AST Total Creatine Kinase C-Reactive Protein Total Protein Albumin TSH Free T4 PTH Intact Urine WBC (Auto) Urine Creatinine Salicylates Acetaminophen 11/11/18 11/11/18 11/11/18 04:42 04:42 05:20 WBC RBC 3.13 L Hgb 9.5 L Hct 28.2 L RDW Plt Count Lymph % (Auto) [place] % (Auto) Lymph # Seg Neutrophils % Seg Neuts % (Manual) 91.0 H Lymphocytes % (Manual) 4.0 L Seg Neutrophils # Seg Neutrophils # Man 8.6 H Lymphocytes # (Manual) 0.4 L PT INR POC ABG pCO2 VBG pH Sodium Potassium Chloride 109.6 H Carbon Dioxide BUN 28 H Creatinine Glucose 263 H POC Glucose 272 H Lactic Acid Calcium 7.9 L Ionized Calcium Phosphorus Magnesium AST Total Creatine Kinase C-Reactive Protein Total Protein 5.6 L Albumin 1.6 L TSH Free T4 PTH Intact Urine WBC (Auto) Urine Creatinine Salicylates Acetaminophen 11/11/18 11/11/18 11/11/18 08:30 13:09 17:10 WBC RBC Hgb Hct RDW Plt Count Lymph % (Auto) [place] % (Auto) Lymph # Seg Neutrophils % Seg Neuts % (Manual) Lymphocytes % (Manual) Seg Neutrophils # Seg Neutrophils # Man Lymphocytes # (Manual) PT INR POC ABG pCO2 VBG pH Sodium Potassium Chloride Carbon Dioxide BUN Creatinine Glucose POC Glucose 290 H 340 H 276 H Lactic Acid Calcium Ionized Calcium Phosphorus Magnesium AST Total Creatine Kinase C-Reactive Protein Total Protein Albumin TSH Free T4 PTH Intact Urine WBC (Auto) Urine Creatinine Salicylates Acetaminophen 11/11/18 11/12/18 11/12/18 22:19 00:29 04:51 WBC RBC 3.22 L Hgb 9.7 L Hct 28.6 L RDW Plt Count 454 H Lymph % (Auto) 7.0 L [place] % (Auto) 7.5 H Lymph # 0.7 L Seg Neutrophils % 83.7 H Seg Neuts % (Manual) Lymphocytes % (Manual) Seg Neutrophils # 7.8 H Seg Neutrophils # Man Lymphocytes # (Manual) PT INR POC ABG pCO2 VBG pH Sodium Potassium Chloride Carbon Dioxide BUN Creatinine Glucose POC Glucose 284 H 262 H Lactic Acid Calcium Ionized Calcium Phosphorus Magnesium AST Total Creatine Kinase C-Reactive Protein Total Protein Albumin TSH Free T4 PTH Intact Urine WBC (Auto) Urine Creatinine Salicylates Acetaminophen 11/12/18 11/12/18 11/12/18 04:51 05:24 09:54 WBC RBC Hgb Hct RDW Plt Count Lymph % (Auto) [place] % (Auto) Lymph # Seg Neutrophils % Seg Neuts % (Manual) Lymphocytes % (Manual) Seg Neutrophils # Seg Neutrophils # Man Lymphocytes # (Manual) PT INR POC ABG pCO2 VBG pH Sodium Potassium Chloride 109.1 H Carbon Dioxide BUN 24 H Creatinine Glucose 334 H POC Glucose 335 H 288 H Lactic Acid Calcium 8.2 L Ionized Calcium Phosphorus Magnesium AST Total Creatine Kinase C-Reactive Protein Total Protein 5.5 L Albumin 1.8 L TSH Free T4 PTH Intact Urine WBC (Auto) Urine Creatinine Salicylates Acetaminophen 11/12/18 11/12/18 11/12/18 13:16 16:41 20:58 WBC RBC Hgb Hct RDW Plt Count Lymph % (Auto) [place] % (Auto) Lymph # Seg Neutrophils % Seg Neuts % (Manual) Lymphocytes % (Manual) Seg Neutrophils # Seg Neutrophils # Man Lymphocytes # (Manual) PT INR POC ABG pCO2 VBG pH Sodium Potassium Chloride Carbon Dioxide BUN Creatinine Glucose POC Glucose 245 H 343 H 403 H Lactic Acid Calcium Ionized Calcium Phosphorus Magnesium AST Total Creatine Kinase C-Reactive Protein Total Protein Albumin TSH Free T4 PTH Intact Urine WBC (Auto) Urine Creatinine Salicylates Acetaminophen 11/13/18 11/13/18 11/13/18 00:21 04:15 04:15 WBC RBC 3.15 L Hgb 9.6 L Hct 28.0 L RDW Plt Count 633 H Lymph % (Auto) 8.8 L [place] % (Auto) 7.6 H Lymph # 0.7 L Seg Neutrophils % 82.2 H Seg Neuts % (Manual) Lymphocytes % (Manual) Seg Neutrophils # Seg Neutrophils # Man Lymphocytes # (Manual) PT INR POC ABG pCO2 VBG pH Sodium 148 H Potassium Chloride 110.1 H Carbon Dioxide BUN 26 H Creatinine Glucose 337 H POC Glucose 391 H Lactic Acid Calcium 8.0 L Ionized Calcium Phosphorus Magnesium AST Total Creatine Kinase C-Reactive Protein Total Protein 5.7 L Albumin 1.8 L TSH Free T4 PTH Intact Urine WBC (Auto) Urine Creatinine Salicylates Acetaminophen 11/13/18 11/13/18 11/13/18 04:32 09:08 17:04 WBC RBC Hgb Hct RDW Plt Count Lymph % (Auto) [place] % (Auto) Lymph # Seg Neutrophils % Seg Neuts % (Manual) Lymphocytes % (Manual) Seg Neutrophils # Seg Neutrophils # Man Lymphocytes # (Manual) PT INR POC ABG pCO2 VBG pH Sodium Potassium Chloride Carbon Dioxide BUN Creatinine Glucose POC Glucose 350 H 285 H 345 H Lactic Acid Calcium Ionized Calcium Phosphorus Magnesium AST Total Creatine Kinase C-Reactive Protein Total Protein Albumin TSH Free T4 PTH Intact Urine WBC (Auto) Urine Creatinine Salicylates Acetaminophen 11/13/18 11/14/18 11/14/18 21:13 01:16 02:38 WBC RBC Hgb Hct RDW Plt Count Lymph % (Auto) [place] % (Auto) Lymph # Seg Neutrophils % Seg Neuts % (Manual) Lymphocytes % (Manual) Seg Neutrophils # Seg Neutrophils # Man Lymphocytes # (Manual) PT INR POC ABG pCO2 VBG pH Sodium 147 H Potassium 5.1 H D Chloride 107.3 H Carbon Dioxide BUN 27 H Creatinine 0.7 L Glucose 298 H POC Glucose 338 H 311 H Lactic Acid Calcium 7.7 L Ionized Calcium Phosphorus Magnesium AST Total Creatine Kinase C-Reactive Protein Total Protein Albumin TSH Free T4 PTH Intact Urine WBC (Auto) Urine Creatinine Salicylates Acetaminophen 11/14/18 11/14/18 11/14/18 05:22 09:09 14:21 WBC RBC Hgb Hct RDW Plt Count Lymph % (Auto) [place] % (Auto) Lymph # Seg Neutrophils % Seg Neuts % (Manual) Lymphocytes % (Manual) Seg Neutrophils # Seg Neutrophils # Man Lymphocytes # (Manual) PT INR POC ABG pCO2 VBG pH Sodium Potassium Chloride Carbon Dioxide BUN Creatinine Glucose POC Glucose 250 H 266 H 270 H Lactic Acid Calcium Ionized Calcium Phosphorus Magnesium AST Total Creatine Kinase C-Reactive Protein Total Protein Albumin TSH Free T4 PTH Intact Urine WBC (Auto) Urine Creatinine Salicylates Acetaminophen 11/14/18 11/14/18 11/15/18 17:06 21:08 01:16 WBC RBC Hgb Hct RDW Plt Count Lymph % (Auto) [place] % (Auto) Lymph # Seg Neutrophils % Seg Neuts % (Manual) Lymphocytes % (Manual) Seg Neutrophils # Seg Neutrophils # Man Lymphocytes # (Manual) PT INR POC ABG pCO2 VBG pH Sodium Potassium Chloride Carbon Dioxide BUN Creatinine Glucose POC Glucose 264 H 257 H 214 H Lactic Acid Calcium Ionized Calcium Phosphorus Magnesium AST Total Creatine Kinase C-Reactive Protein Total Protein Albumin TSH Free T4 PTH Intact Urine WBC (Auto) Urine Creatinine Salicylates Acetaminophen 11/15/18 11/15/18 11/15/18 03:58 03:58 05:01 WBC RBC 3.03 L Hgb 9.2 L Hct 26.8 L RDW 13.1 L Plt Count 831 H Lymph % (Auto) [place] % (Auto) 7.5 H Lymph # Seg Neutrophils % 75.0 H Seg Neuts % (Manual) Lymphocytes % (Manual) Seg Neutrophils # Seg Neutrophils # Man Lymphocytes # (Manual) PT INR POC ABG pCO2 VBG pH Sodium 148 H Potassium Chloride 108.5 H Carbon Dioxide 31 H BUN 22 H Creatinine 0.7 L Glucose 184 H POC Glucose 160 H Lactic Acid Calcium 8.3 L Ionized Calcium Phosphorus Magnesium AST Total Creatine Kinase C-Reactive Protein Total Protein 5.6 L Albumin 2.2 L TSH Free T4 PTH Intact Urine WBC (Auto) Urine Creatinine Salicylates Acetaminophen 11/15/18 09:12 WBC RBC Hgb Hct RDW Plt Count Lymph % (Auto) [place] % (Auto) Lymph # Seg Neutrophils % Seg Neuts % (Manual) Lymphocytes % (Manual) Seg Neutrophils # Seg Neutrophils # Man Lymphocytes # (Manual) PT INR POC ABG pCO2 VBG pH Sodium Potassium Chloride Carbon Dioxide BUN Creatinine Glucose POC Glucose 139 H Lactic Acid Calcium Ionized Calcium Phosphorus Magnesium AST Total Creatine Kinase C-Reactive Protein Total Protein Albumin TSH Free T4 PTH Intact Urine WBC (Auto) Urine Creatinine Salicylates Acetaminophen
[2018-11-15] MEDS: LANTUS SUB-Q SCH (21:43)
[2018-11-16] MEDS: HumaLOG SUB-Q SCH ×6 (01:00→22:05)
[2018-11-16] MEDS: TYLENOL FEEDTUBE PRN (05:20)
[2018-11-16 05:25] LABS: Alanine Aminotransferase 12 units/L (7-56); Albumin 2.3 g/dL (3.9-5); BUN/Creatinine Ratio 30; Blood Urea Nitrogen 18 mg/dL (9-20); Calcium 8.1 mg/dL (8.4-10.2); Hemolysis Index 0
--- NOTE | 2018-11-16 09:08 | Progress Note ---
Assessment and Plan 53 YO Male with DM presents to ED for evaluation. Pt is stuporous st time of my exam and unable to provide history. Pt history taken from EMS as well as ED staff. As per staff, the patient found down and unresponsive in his home. Pt last contact with family was 5 days ago. At that time the patient was in his usual state of health. A well check was conducted, and the patient was unable to answer the door. Law Enforcement was contacted, and gained entry into the home. The patient was subsequently found down, and unresponsive and lying on the kitchen floor covered in fecal matter. EMS notified, and upon arrival the patient was found to have a serum glucose above 500, and in distress. Pt transported to [facility]. Pt seen and evaluated in ED and found to have DKA, Metabolic Encephalopathy, Sepsis suspected secondary to UTI, Rhabdomyolysis, Acidosis, and Acute Kidney Injury. Pt admitted to ICU and initiated on Sepsis protocol, as well as DKA protocol. Nephrology consulted in ED. Pulmonary team consulted in ED. No further history obtainable. No prior admission for review. No medication listed at time of admission for reconciliation. Patient was then admitted and commenced on DKA protocol. Glucose 1088 on admit, now 195. BUN 200 on admit, now 98. Found to be hypernatremic with improved glycemic control. Low T4 and elevarted TSH levels - Metabolic encephalopathy - improving. Follows all commands - Debilitation from prolonged illness PT/OT - Sepsis - resolved Dysphagia Video fluoroscopic swallow showed no evidence of aspitation Will D/c NGT and commence oral feeding - Fever and white count since resolved. Unclear etiology of sepsis as all cultures are negative. Would continue to levofloxacin for now while blood cultures continue to incubate. Possible UTI, UA with pyuria but otherwise not significant. UCx negative. - T2DM s/p resolved DKA. Continue with SSI Accu-Check NGT feeding - Dysphagia Failed swallowing study Will repeat in view of his improved clinical status - Milk hyperkalemia corrected - JAVY due to vasomotor nephropathy - improving IV hydration Nephrology consulted and following - Hypernatremia -improved continue free water via NG tube - Hypothyroidism Supplement thyroid - Severe Protein calorie malnutrition Dietary consult - UTI will continue levofloxacin. Urine Cx no growth so far - Rhabdomylosis - improving Cautious IV hydration Serial CK levels - Dark stool - resolved iv pentaprazole GI consult input appreciated - DVT and GI prophylaxis with Lovenox and omeprazole - CODE STATUS: Patient is full code - Disposition: Discussed with [facility]. Transffer to PT whenever bed is available - Time spent: 25 min minutes Subjective Date of service: 11/16/18 Principal diagnosis: Ac hypoxemic resp failure; Severe sepsis; DKA; JAVY; Ac encephalopathy; UTI Interval history: Patient seen and examined. Alert and oriented x 3. Moved his arms but weak on his lower extremities. Objective - Exam Narrative Exam: Constitutional: Alert adn oriented x 3. Very interactive. Still Ill-looking Head: Normocephalic atraumatic Eyes: Pupils are equal round and reactive to light Nose: No enlarged turbinates, no septal deviation. Mouth: Moist mucous membranes. ON NGT feeding Neck: Supple no thyromegaly. No bruit. No JVD Heart: Regular rate and rhythm, S1-S2 normal. No rubs murmurs or gallop Lungs: Clear to auscultation bilaterally. no rales or rhonchi Abdomen: Soft, nontender. Bowel sound are present. Extremities: No edema, no cyanosis, no clubbing. skin ulcers Neuro:AxO x3 . Answers all short question appropriately. weak only in both LEs Skin: Skin ulcer in the lower extrmities Musculoskeletal system: No joint pain or swelling Hematological: No petechia or subcutanous hemorrhages. Immunological: No multiple septic spots on the skin Lymphatic: No generalized lymphadenopathy Psychiatry: No depression - Constitutional Vitals: Vital Signs - 12hr 11/15/18 11/15/18 11/16/18 22:00 23:00 00:00 Temperature 98.3 F Pulse Rate 86 90 79 Pulse Rate [ 94 H From Monitor] Respiratory 17 Rate Blood Pressure 93/57 99/64 105/63 O2 Sat by Pulse 93 94 Oximetry 11/16/18 11/16/18 11/16/18 01:00 02:00 03:00 Temperature Pulse Rate 85 87 86 Pulse Rate [ From Monitor] Respiratory Rate Blood Pressure 93/60 99/64 101/62 O2 Sat by Pulse 96 95 Oximetry 11/16/18 11/16/18 11/16/18 04:00 05:00 05:45 Temperature 97.0 F L 98.3 F Pulse Rate 89 89 Pulse Rate [ 89 From Monitor] Respiratory 18 21 Rate Blood Pressure 103/58 115/70 O2 Sat by Pulse 95 96 Oximetry 11/16/18 11/16/18 06:00 08:00 Temperature 98.4 F Pulse Rate 87 Pulse Rate [ From Monitor] Respiratory 19 Rate Blood Pressure 99/77 O2 Sat by Pulse 96 Oximetry - Labs CBC & Chem 7: 11/15/18 03:58 11/16/18 04:41 Labs: Abnormal lab results 11/15/18 11/15/18 11/15/18 Range/Units 09:12 14:47 16:38 Carbon Dioxide (22-30) mmol/L Creatinine (0.8-1.5) mg/dL Glucose (75-100) mg/dL POC Glucose 139 H 221 H 259 H (70-105) Calcium (8.4-10.2) mg/dL Total Protein (6.3-8.2) g/dL Albumin (3.9-5) g/dL 11/15/18 11/16/18 11/16/18 Range/Units 21:17 00:53 04:41 Carbon Dioxide 31 H (22-30) mmol/L Creatinine 0.6 L (0.8-1.5) mg/dL Glucose 142 H (75-100) mg/dL POC Glucose 187 H 183 H (70-105) Calcium 8.1 L (8.4-10.2) mg/dL Total Protein 5.6 L (6.3-8.2) g/dL Albumin 2.3 L (3.9-5) g/dL 11/16/18 Range/Units 04:46 Carbon Dioxide (22-30) mmol/L Creatinine (0.8-1.5) mg/dL Glucose (75-100) mg/dL POC Glucose 135 H (70-105) Calcium (8.4-10.2) mg/dL Total Protein (6.3-8.2) g/dL Albumin (3.9-5) g/dL
--- NOTE | 2018-11-16 09:18 | Progress Note ---
Assessment and Plan 1. Acute kidney injury: Vasomotor JAVY in the setting of volume depletion and DKA. Renal US was negative for hydro. Renal function is better. Monitor renal function. Avoid nephrotoxic agents. Meds dosage based on GFR. 2. FEN: Hyperkalemia, improved. Hypernatremia, improved. Metabolic acidosis, improved. Monitor lytes. 3. DKA: Improved. 4. Hyperglycemia: Improving. 5. Sepsis: Treated. 6. Metabolic Encephalopathy: Improving. Will sign off and see patient if needed. Subjective Date of service: 11/16/18 Principal diagnosis: Ac hypoxemic resp failure; Severe sepsis; DKA; JAVY; Ac encephalopathy; UTI Interval history: Patient was seen and examined at the bedside. No new complaint. Objective - Vital Signs Vital signs: Vital Signs - 12hr 11/15/18 11/15/18 11/16/18 22:00 23:00 00:00 Temperature 98.3 F Pulse Rate 86 90 79 Pulse Rate [ 94 H From Monitor] Respiratory 17 Rate Blood Pressure 93/57 99/64 105/63 O2 Sat by Pulse 93 94 Oximetry 11/16/18 11/16/18 11/16/18 01:00 02:00 03:00 Temperature Pulse Rate 85 87 86 Pulse Rate [ From Monitor] Respiratory Rate Blood Pressure 93/60 99/64 101/62 O2 Sat by Pulse 96 95 Oximetry 11/16/18 11/16/18 11/16/18 04:00 05:00 05:45 Temperature 97.0 F L 98.3 F Pulse Rate 89 89 Pulse Rate [ 89 From Monitor] Respiratory 18 21 Rate Blood Pressure 103/58 115/70 O2 Sat by Pulse 95 96 Oximetry 11/16/18 11/16/18 06:00 08:00 Temperature 98.4 F Pulse Rate 87 Pulse Rate [ From Monitor] Respiratory 19 Rate Blood Pressure 99/77 O2 Sat by Pulse 96 Oximetry - General Appearance General appearance: well-developed, appears stated age, other (no distress, NG tube noted) EENT: ATNC, PERRL, hearing intact, vision intact Neck: no thyromegaly, supple Respiratory: Present: Clear to Ascultation Cardiology: regular, S1S2, no murmurs Gastrointestinal: normoactive bowel sounds, no tenderness, no distended Integumentary: no rash, warm and dry Neurologic: no focal deficit, no asterixis, alert and oriented x3 Musculoskeletal: other (no edema) - Lab 11/15/18 03:58 11/16/18 04:41 Most recent lab results Calcium 8.1 mg/dL (8.4-10.2) L 11/16/18 04:41 Phosphorus 3.70 mg/dL (2.5-4.5) 11/13/18 04:15 Magnesium 2.50 mg/dL (1.7-2.3) H 11/07/18 04:13 58.1 mg/dL (0.1-20.0) H 11/04/18 20:55 34 mmol/L 11/04/18 20:55 Medications & Allergies - Medications Allergies/Adverse Reactions: Allergies No Known Allergies Allergy (Unverified 11/04/18 15:22) Home Medications: Home Medications Medication Instructions Recorded Confirmed Last Taken Type Glimepiride 4 mg PO BID 11/06/18 11/06/18 Unknown History HYDROcodone/ACETAMINOPHEN 5 - 325 mg PO Q4-6H PRN 11/06/18 11/06/18 Unknown History Ibuprofen 800 mg PO Q8HR PRN 11/06/18 11/06/18 Unknown History Lisinopril 2.5 mg PO DAILY 11/06/18 11/06/18 Unknown History Metformin HCl 1,000 mg PO BID 11/06/18 11/06/18 Unknown History NovoLIN N 5 unit SUB-Q BID MDD x 90days 11/06/18 11/06/18 Unknown History Pravastatin Sodium 20 mg PO BID 11/06/18 11/06/18 Unknown History glipiZIDE 10 mg PO BID 11/06/18 11/06/18 Unknown History Active Medications: Generic Name Dose Route Start Last Admin Trade Name Freq PRN Reason Stop Dose Admin Acetaminophen 650 mg 11/09/18 04:21 11/16/18 05:20 Tylenol FEEDTUBE 650 mg Q4H PRN Administration Fever >101 Albuterol 2.5 mg 11/04/18 17:42 Proventil IH Q3H PRN Shortness Of Breath Lipase/Protease/Amylase 1 each 11/06/18 15:57 Pancresue Delacruz 10,500 Unit FEEDTUBE PRN PRN For Clogged Feeding Tube Dextrose 0 ml 11/04/18 15:40 D50w (25gm) Syringe IV PRN PRN Hypoglycemia Heparin Sodium (Porcine) 5,000 unit 11/04/18 22:00 11/15/18 21:42 Heparin SUB-Q 5,000 unit Q12HR MARIEL Administration Insulin Glargine 45 units 11/13/18 22:00 11/15/18 21:43 Lantus SUB-Q 45 units QHS MARIEL Administration Insulin Human Lispro 0 unit 11/05/18 17:00 11/16/18 05:00 Humalog SUB-Q 2 unit Q4H MARIEL Administration Protocol Lansoprazole 30 mg 11/08/18 10:00 11/15/18 21:43 Prevacid Solutab FEEDTUBE 30 mg BID MARIEL Administration Simple Syrup 15 ml 11/06/18 15:57 Simple Syrup FEEDTUBE PRN PRN Hypoglycemia Simple Syrup 30 ml 11/06/18 15:57 Simple Syrup FEEDTUBE PRN PRN Hypoglycemia Sodium Bicarbonate 325 mg 11/06/18 15:57 Sodium Bicarbonate FEEDTUBE PRN PRN For Clogged Feeding Tube Sodium Chloride 10 ml 11/04/18 22:00 11/15/18 21:44 Sodium Chloride Flush Syringe 10 Ml IV 10 ml BID MARIEL Administration Sodium Chloride 10 ml 11/04/18 17:42 Sodium Chloride Flush Syringe 10 Ml IV PRN PRN LINE FLUSH Tamsulosin HCl 0.4 mg 11/07/18 13:00 11/15/18 09:31 Flomax PO 0.4 mg QDAY MARIEL Administration
[2018-11-16] MEDS: HEPARIN SUB-Q SCH ×2 (11:16→22:11)
[2018-11-16] MEDS: FLOMAX PO SCH (11:16)
[2018-11-16] MEDS: PREVACID SOLUTAB FEEDTUBE SCH ×2 (11:16→22:11)
[2018-11-16] MEDS: SODIUM CHLORIDE FLUSH SYRINGE 10 ML IV SCH ×2 (11:18→22:12)
--- NOTE | 2018-11-16 14:04 | Progress Note ---
Assessment and Plan Acute hypoxemic respiratory failure, on supplemental oxygen. Severe sepsis with shock (unspecified) Diabetic ketoacidosis. Acute kidney injury, likely secondary to rhabdomyolysis. Rhabdomyolysis. Acute encephalopathy, likely toxic metabolic. Hyperkalemia. Possible urinary tract infection. Severe metabolic acidosis. Possible hypothyroidism. Leukocytosis - continue Flomax re: urinary retention - continue ST evaluation and advance diet as tolerated - wean supplemental oxygen as needed to keep O2 sat's > 90% - neurology evaluation ongoing and input appreciated - completed empiric Levaquin monotherapy - trend CRP and lactate prn to aid clinical decision making - continue long acting insulin therapy with SSI for target BG < 180 mg/dl acutely - Azotemia resolved - avoid nephrotoxins and renally adjust all medications as needed - stopped thyroid hormone supplementation - cpk level now WNL - wound care per WCT - continue GI & VTE prophylaxis - aspiration precautions - flu & pneumovax addressed per protocol - resume chronic disease med's per attending - prn bronchodilators with pulmonary hygiene per RT - continue enteral nutrition as tolerated - Agitation management - Prevention of delirium, maintenance of sleep-wake cycle - continue other care per attending / other consultants ... re-evaluate in am & prn Subjective Date of service: 11/16/18 Principal diagnosis: Ac hypoxemic resp failure; Severe sepsis; DKA; JAVY; Ac encephalopathy; UTI Interval history: Patient is seen today for: Acute hypoxemic respiratory failure; Severe sepsis with shock; Diabetic ketoacidosis; Acute kidney injury; Rhabdomyolysis; Acute encephalopathy, likely toxic metabolic; Hyperkalemia; Possible urinary tract infection; Severe metabolic acidosis; Possible hypothyroidism; Leukocytosis Seen and examined at bedside; 24hour events reviewed; nursing and respiratory care staff consulted; no adverse overnight events reported to me; resting peacefully in bed; looks and feels better; still with occassional no radiating headaches without aura; No N/V/F/C; denies acute chest pains or palpitations Objective Vital Signs - 12hr 11/16/18 11/16/18 11/16/18 03:00 04:00 05:00 Temperature 97.0 F L Pulse Rate 86 89 89 Pulse Rate [ 89 From Monitor] Respiratory 18 21 Rate Blood Pressure 101/62 103/58 115/70 O2 Sat by Pulse 95 95 96 Oximetry 08/08/19 08/08/19 08/08/19 05:45 06:00 07:00 Temperature 98.3 F Pulse Rate 87 88 Pulse Rate [ From Monitor] Respiratory 19 20 Rate Blood Pressure 99/77 110/64 O2 Sat by Pulse 96 94 Oximetry 11/16/18 11/16/18 11/16/18 08:00 09:00 10:01 Temperature 98.4 F Pulse Rate 88 97 H 96 H Pulse Rate [ From Monitor] Respiratory 20 13 20 Rate Blood Pressure 89/58 90/52 87/49 O2 Sat by Pulse 95 94 98 Oximetry 11/16/18 11/16/18 11/16/18 11:01 12:00 13:01 Temperature 94.4 F L Pulse Rate 91 H 87 105 H Pulse Rate [ From Monitor] Respiratory 14 14 13 Rate Blood Pressure 108/64 137/67 137/67 O2 Sat by Pulse 95 95 95 Oximetry Constitutional: alert, other (middle aged normocephalic and atraumatic AAM) Eyes: non-icteric ENT: oropharynx moist, other (mallampati 2) Neck: supple, no lymphadenopathy, no JVD Effort: mildly labored Ascultation: Bilateral: clear, diminished breath sounds Percussion: Bilateral: not dull Cardiovascular: regular rate and rhythm Gastrointestinal: normoactive bowel sounds, soft, non-tender, non-distended Integumentary: normal Extremities: no cyanosis, no edema, pulses normal, no ischemia or petechiae Neurologic: non-focal exam, pupils equal and round, CN II-XII normal, other (w eak, deconditioned) Psychiatric: mood appropriate, affect normal, other (unable to assess re: AMS) CBC and BMP: 11/15/18 03:58 11/17/18 04:48 ABG, PT/INR, D-dimer: ABG POC ABG pH 7.432 (7.35-7.45) 11/05/18 17:08 POC ABG pCO2 32.3 (35-45) L 11/05/18 17:08 POC ABG HCO3 21.5 (22-26 mml/L) 11/05/18 17:08 POC ABG Total CO2 23 (23-27mmol/L) 11/05/18 17:08 POC ABG O2 Sat 85 11/05/18 17:08 PT/INR, D-dimer PT 15.6 Sec. (12.2-14.9) H 11/04/18 16:05 INR 1.27 (0.87-1.13) H 11/04/18 16:05 Abnormal lab findings: Abnormal Labs 11/04/18 11/04/18 11/04/18 15:23 15:35 16:05 WBC 12.6 H RBC Hgb Hct RDW Plt Count Lymph % (Auto) [place] % (Auto) Lymph # Seg Neutrophils % Seg Neuts % (Manual) 84.0 H Lymphocytes % (Manual) 1.0 L Seg Neutrophils # Seg Neutrophils # Man 10.6 H Lymphocytes # (Manual) 0.1 L PT INR POC ABG pCO2 VBG pH Sodium Potassium Chloride Carbon Dioxide BUN Creatinine Glucose POC Glucose > 500 H Lactic Acid Calcium Ionized Calcium Phosphorus Magnesium AST Total Creatine Kinase C-Reactive Protein Total Protein Albumin TSH Free T4 PTH Intact Urine WBC (Auto) 12.0 H Urine Creatinine Salicylates Acetaminophen 11/04/18 11/04/18 11/04/18 16:05 16:05 16:05 WBC RBC Hgb Hct RDW Plt Count Lymph % (Auto) [place] % (Auto) Lymph # Seg Neutrophils % Seg Neuts % (Manual) Lymphocytes % (Manual) Seg Neutrophils # Seg Neutrophils # Man Lymphocytes # (Manual) PT 15.6 H INR 1.27 H POC ABG pCO2 VBG pH Sodium 153 H Potassium 6.2 H* Chloride Carbon Dioxide 18 L BUN 200 H Creatinine 6.8 H Glucose 1088 H* POC Glucose Lactic Acid 2.80 H* Calcium 7.2 L Ionized Calcium Phosphorus Magnesium AST Total Creatine Kinase C-Reactive Protein Total Protein Albumin 3.1 L TSH Free T4 PTH Intact Urine WBC (Auto) Urine Creatinine Salicylates Acetaminophen 11/04/18 11/04/18 11/04/18 16:05 16:05 16:05 WBC RBC Hgb Hct RDW Plt Count Lymph % (Auto) [place] % (Auto) Lymph # Seg Neutrophils % Seg Neuts % (Manual) Lymphocytes % (Manual) Seg Neutrophils # Seg Neutrophils # Man Lymphocytes # (Manual) PT INR POC ABG pCO2 VBG pH 7.245 L Sodium Potassium Chloride Carbon Dioxide BUN Creatinine Glucose POC Glucose Lactic Acid Calcium Ionized Calcium Phosphorus 13.80 H Magnesium 3.60 H AST Total Creatine Kinase C-Reactive Protein Total Protein Albumin TSH 0.169 L Free T4 0.68 L PTH Intact Urine WBC (Auto) Urine Creatinine Salicylates Acetaminophen 11/04/18 11/04/18 11/04/18 16:05 16:48 19:40 WBC RBC Hgb Hct RDW Plt Count Lymph % (Auto) [place] % (Auto) Lymph # Seg Neutrophils % Seg Neuts % (Manual) Lymphocytes % (Manual) Seg Neutrophils # Seg Neutrophils # Man Lymphocytes # (Manual) PT INR POC ABG pCO2 VBG pH Sodium Potassium Chloride Carbon Dioxide BUN Creatinine Glucose POC Glucose > 500 H 458 H Lactic Acid Calcium Ionized Calcium Phosphorus Magnesium AST Total Creatine Kinase 1857 H C-Reactive Protein Total Protein Albumin TSH Free T4 PTH Intact Urine WBC (Auto) Urine Creatinine Salicylates Acetaminophen 11/04/18 11/04/18 11/04/18 20:29 20:29 20:29 WBC RBC Hgb Hct RDW Plt Count Lymph % (Auto) [place] % (Auto) Lymph # Seg Neutrophils % Seg Neuts % (Manual) Lymphocytes % (Manual) Seg Neutrophils # Seg Neutrophils # Man Lymphocytes # (Manual) PT INR POC ABG pCO2 VBG pH Sodium 163 H* D Potassium Chloride 121.4 H Carbon Dioxide 21 L BUN 166 H Creatinine 5.6 H Glucose 513 H* POC Glucose Lactic Acid 3.30 H* 3.30 H* Calcium 6.4 L Ionized Calcium Phosphorus Magnesium AST Total Creatine Kinase C-Reactive Protein Total Protein Albumin TSH Free T4 PTH Intact Urine WBC (Auto) Urine Creatinine Salicylates Acetaminophen 11/04/18 11/04/18 11/04/18 20:55 21:03 22:00 WBC RBC Hgb Hct RDW Plt Count Lymph % (Auto) [place] % (Auto) Lymph # Seg Neutrophils % Seg Neuts % (Manual) Lymphocytes % (Manual) Seg Neutrophils # Seg Neutrophils # Man Lymphocytes # (Manual) PT INR POC ABG pCO2 VBG pH Sodium Potassium Chloride Carbon Dioxide BUN Creatinine Glucose POC Glucose 496 H Lactic Acid 3.60 H* Calcium Ionized Calcium Phosphorus Magnesium AST Total Creatine Kinase C-Reactive Protein Total Protein Albumin TSH Free T4 PTH Intact Urine WBC (Auto) Urine Creatinine 58.1 H Salicylates Acetaminophen 11/04/18 11/04/18 11/04/18 22:04 23:07 23:47 WBC RBC Hgb Hct RDW Plt Count Lymph % (Auto) [place] % (Auto) Lymph # Seg Neutrophils % Seg Neuts % (Manual) Lymphocytes % (Manual) Seg Neutrophils # Seg Neutrophils # Man Lymphocytes # (Manual) PT INR POC ABG pCO2 VBG pH Sodium 170 H* Potassium Chloride 127.1 H Carbon Dioxide BUN 164 H Creatinine 5.2 H Glucose 213 H POC Glucose 357 H 306 H Lactic Acid Calcium 6.5 L Ionized Calcium Phosphorus Magnesium AST Total Creatine Kinase C-Reactive Protein Total Protein Albumin TSH Free T4 PTH Intact Urine WBC (Auto) Urine Creatinine Salicylates Acetaminophen 11/04/18 11/05/18 11/05/18 23:47 00:04 00:09 WBC RBC Hgb Hct RDW Plt Count Lymph % (Auto) [place] % (Auto) Lymph # Seg Neutrophils % Seg Neuts % (Manual) Lymphocytes % (Manual) Seg Neutrophils # Seg Neutrophils # Man Lymphocytes # (Manual) PT INR POC ABG pCO2 VBG pH Sodium 163 H* Potassium Chloride 127.5 H Carbon Dioxide BUN 117 H Creatinine 3.3 H Glucose 235 H POC Glucose 219 H Lactic Acid 3.20 H* Calcium 6.8 L Ionized Calcium Phosphorus Magnesium AST Total Creatine Kinase C-Reactive Protein Total Protein Albumin TSH Free T4 PTH Intact Urine WBC (Auto) Urine Creatinine Salicylates Acetaminophen 11/05/18 11/05/18 11/05/18 00:59 03:13 03:52 WBC RBC Hgb Hct RDW Plt Count Lymph % (Auto) [place] % (Auto) Lymph # Seg Neutrophils % Seg Neuts % (Manual) Lymphocytes % (Manual) Seg Neutrophils # Seg Neutrophils # Man Lymphocytes # (Manual) PT INR POC ABG pCO2 VBG pH Sodium Potassium Chloride Carbon Dioxide BUN Creatinine Glucose POC Glucose 204 H 124 H Lactic Acid Calcium Ionized Calcium Phosphorus Magnesium AST Total Creatine Kinase 1680 H C-Reactive Protein Total Protein Albumin TSH Free T4 PTH Intact Urine WBC (Auto) Urine Creatinine Salicylates Acetaminophen 11/05/18 11/05/18 11/05/18 03:52 04:25 05:11 WBC RBC Hgb Hct RDW Plt Count Lymph % (Auto) [place] % (Auto) Lymph # Seg Neutrophils % Seg Neuts % (Manual) Lymphocytes % (Manual) Seg Neutrophils # Seg Neutrophils # Man Lymphocytes # (Manual) PT INR POC ABG pCO2 VBG pH Sodium 169 H* Potassium Chloride 126.2 H Carbon Dioxide BUN 156 H Creatinine 4.7 H Glucose 128 H POC Glucose 150 H 173 H Lactic Acid Calcium 6.3 L Ionized Calcium Phosphorus Magnesium AST Total Creatine Kinase C-Reactive Protein Total Protein Albumin TSH Free T4 PTH Intact Urine WBC (Auto) Urine Creatinine Salicylates Acetaminophen 11/05/18 11/05/18 11/05/18 06:05 06:58 07:48 WBC RBC Hgb Hct RDW Plt Count Lymph % (Auto) [place] % (Auto) Lymph # Seg Neutrophils % Seg Neuts % (Manual) Lymphocytes % (Manual) Seg Neutrophils # Seg Neutrophils # Man Lymphocytes # (Manual) PT INR POC ABG pCO2 VBG pH Sodium Potassium Chloride Carbon Dioxide BUN Creatinine Glucose POC Glucose 136 H 152 H 177 H Lactic Acid Calcium Ionized Calcium Phosphorus Magnesium AST Total Creatine Kinase C-Reactive Protein Total Protein Albumin TSH Free T4 PTH Intact Urine WBC (Auto) Urine Creatinine Salicylates Acetaminophen 11/05/18 11/05/18 11/05/18 08:21 08:21 08:23 WBC RBC Hgb Hct RDW Plt Count Lymph % (Auto) [place] % (Auto) Lymph # Seg Neutrophils % Seg Neuts % (Manual) Lymphocytes % (Manual) Seg Neutrophils # Seg Neutrophils # Man Lymphocytes # (Manual) PT INR POC ABG pCO2 VBG pH Sodium 171 H* Potassium Chloride 128.9 H Carbon Dioxide BUN 149 H Creatinine 4.5 H Glucose 159 H POC Glucose 157 H Lactic Acid Calcium 6.7 L Ionized Calcium Phosphorus Magnesium AST Total Creatine Kinase C-Reactive Protein Total Protein Albumin TSH Free T4 PTH Intact 119.3 H Urine WBC (Auto) Urine Creatinine Salicylates Acetaminophen 11/05/18 11/05/18 11/05/18 10:21 11:12 12:37 WBC RBC Hgb Hct RDW Plt Count Lymph % (Auto) [place] % (Auto) Lymph # Seg Neutrophils % Seg Neuts % (Manual) Lymphocytes % (Manual) Seg Neutrophils # Seg Neutrophils # Man Lymphocytes # (Manual) PT INR POC ABG pCO2 VBG pH Sodium Potassium Chloride Carbon Dioxide BUN Creatinine Glucose POC Glucose 171 H 155 H 145 H Lactic Acid Calcium Ionized Calcium Phosphorus Magnesium AST Total Creatine Kinase C-Reactive Protein Total Protein Albumin TSH Free T4 PTH Intact Urine WBC (Auto) Urine Creatinine Salicylates Acetaminophen 11/05/18 11/05/18 11/05/18 13:24 13:47 14:42 WBC RBC Hgb Hct RDW Plt Count Lymph % (Auto) [place] % (Auto) Lymph # Seg Neutrophils % Seg Neuts % (Manual) Lymphocytes % (Manual) Seg Neutrophils # Seg Neutrophils # Man Lymphocytes # (Manual) PT INR POC ABG pCO2 VBG pH Sodium 167 H* Potassium Chloride 131.6 H Carbon Dioxide BUN 130 H Creatinine 3.8 H Glucose 136 H POC Glucose 137 H 133 H Lactic Acid Calcium 6.4 L Ionized Calcium Phosphorus Magnesium AST Total Creatine Kinase C-Reactive Protein Total Protein Albumin TSH Free T4 PTH Intact Urine WBC (Auto) Urine Creatinine Salicylates Acetaminophen 11/05/18 11/05/18 11/05/18 16:55 17:08 18:14 WBC RBC Hgb Hct RDW Plt Count Lymph % (Auto) [place] % (Auto) Lymph # Seg Neutrophils % Seg Neuts % (Manual) Lymphocytes % (Manual) Seg Neutrophils # Seg Neutrophils # Man Lymphocytes # (Manual) PT INR POC ABG pCO2 32.3 L VBG pH Sodium Potassium Chloride Carbon Dioxide BUN Creatinine Glucose POC Glucose 194 H 195 H Lactic Acid Calcium Ionized Calcium Phosphorus Magnesium AST Total Creatine Kinase C-Reactive Protein Total Protein Albumin TSH Free T4 PTH Intact Urine WBC (Auto) Urine Creatinine Salicylates Acetaminophen 11/05/18 11/05/18 11/05/18 18:35 18:35 18:35 WBC RBC Hgb Hct RDW Plt Count Lymph % (Auto) [place] % (Auto) Lymph # Seg Neutrophils % Seg Neuts % (Manual) Lymphocytes % (Manual) Seg Neutrophils # Seg Neutrophils # Man Lymphocytes # (Manual) PT INR POC ABG pCO2 VBG pH Sodium Potassium Chloride Carbon Dioxide BUN Creatinine Glucose POC Glucose Lactic Acid Calcium Ionized Calcium Phosphorus Magnesium AST Total Creatine Kinase C-Reactive Protein 19.50 H Total Protein Albumin TSH Free T4 PTH Intact Urine WBC (Auto) Urine Creatinine Salicylates < 0.3 L Acetaminophen < 5.0 L 11/05/18 11/06/18 11/06/18 21:09 01:36 04:50 WBC RBC Hgb 11.3 L Hct 32.8 L D RDW Plt Count 110 L Lymph % (Auto) [place] % (Auto) Lymph # Seg Neutrophils % Seg Neuts % (Manual) Lymphocytes % (Manual) Seg Neutrophils # Seg Neutrophils # Man Lymphocytes # (Manual) PT INR POC ABG pCO2 VBG pH Sodium Potassium Chloride Carbon Dioxide BUN Creatinine Glucose POC Glucose 250 H 289 H Lactic Acid Calcium Ionized Calcium Phosphorus Magnesium AST Total Creatine Kinase C-Reactive Protein Total Protein Albumin TSH Free T4 PTH Intact Urine WBC (Auto) Urine Creatinine Salicylates Acetaminophen 11/06/18 11/06/18 11/06/18 04:50 04:50 05:14 WBC RBC Hgb Hct RDW Plt Count Lymph % (Auto) [place] % (Auto) Lymph # Seg Neutrophils % Seg Neuts % (Manual) Lymphocytes % (Manual) Seg Neutrophils # Seg Neutrophils # Man Lymphocytes # (Manual) PT INR POC ABG pCO2 VBG pH Sodium 165 H* 164 H* Potassium Chloride 127.4 H Carbon Dioxide BUN 113 H Creatinine 3.2 H Glucose 208 H POC Glucose 215 H Lactic Acid Calcium 6.8 L Ionized Calcium Phosphorus Magnesium AST 55 H Total Creatine Kinase C-Reactive Protein Total Protein 5.2 L D Albumin 2.3 L TSH Free T4 PTH Intact Urine WBC (Auto) Urine Creatinine Salicylates Acetaminophen 11/06/18 11/06/18 11/06/18 07:50 08:50 12:16 WBC RBC Hgb Hct RDW Plt Count Lymph % (Auto) [place] % (Auto) Lymph # Seg Neutrophils % Seg Neuts % (Manual) Lymphocytes % (Manual) Seg Neutrophils # Seg Neutrophils # Man Lymphocytes # (Manual) PT INR POC ABG pCO2 VBG pH Sodium 161 H* Potassium Chloride 126.0 H Carbon Dioxide BUN 111 H Creatinine 3.0 H Glucose 187 H POC Glucose 239 H 198 H Lactic Acid Calcium 7.0 L Ionized Calcium Phosphorus Magnesium AST Total Creatine Kinase C-Reactive Protein Total Protein Albumin TSH Free T4 PTH Intact Urine WBC (Auto) Urine Creatinine Salicylates Acetaminophen 11/06/18 11/06/18 11/06/18 15:42 15:42 17:59 WBC RBC Hgb Hct RDW Plt Count Lymph % (Auto) [place] % (Auto) Lymph # Seg Neutrophils % Seg Neuts % (Manual) Lymphocytes % (Manual) Seg Neutrophils # Seg Neutrophils # Man Lymphocytes # (Manual) PT INR POC ABG pCO2 VBG pH Sodium 162 H* Potassium Chloride 127.3 H Carbon Dioxide BUN 98 H Creatinine 2.7 H Glucose 195 H POC Glucose 225 H Lactic Acid Calcium 7.1 L Ionized Calcium 4.4 L Phosphorus Magnesium AST Total Creatine Kinase C-Reactive Protein Total Protein Albumin TSH Free T4 PTH Intact Urine WBC (Auto) Urine Creatinine Salicylates Acetaminophen 11/06/18 11/06/18 11/06/18 21:21 21:24 21:24 WBC RBC Hgb 11.0 L Hct 33.4 L RDW Plt Count Lymph % (Auto) [place] % (Auto) Lymph # Seg Neutrophils % Seg Neuts % (Manual) Lymphocytes % (Manual) Seg Neutrophils # Seg Neutrophils # Man Lymphocytes # (Manual) PT INR POC ABG pCO2 VBG pH Sodium Potassium Chloride Carbon Dioxide BUN Creatinine Glucose POC Glucose 272 H Lactic Acid Calcium Ionized Calcium Phosphorus Magnesium AST Total Creatine Kinase 3538 H C-Reactive Protein Total Protein Albumin TSH Free T4 PTH Intact Urine WBC (Auto) Urine Creatinine Salicylates Acetaminophen 11/07/18 11/07/18 11/07/18 02:01 04:13 04:13 WBC RBC Hgb 11.4 L Hct 33.8 L RDW Plt Count 103 L Lymph % (Auto) [place] % (Auto) Lymph # Seg Neutrophils % Seg Neuts % (Manual) 83.0 H Lymphocytes % (Manual) 6.0 L Seg Neutrophils # Seg Neutrophils # Man Lymphocytes # (Manual) 0.6 L PT INR POC ABG pCO2 VBG pH Sodium 161 H* Potassium Chloride 125.8 H Carbon Dioxide BUN 80 H Creatinine 2.4 H Glucose 246 H POC Glucose 282 H Lactic Acid Calcium 7.4 L Ionized Calcium Phosphorus Magnesium 2.50 H AST 106 H Total Creatine Kinase C-Reactive Protein Total Protein 5.7 L Albumin 2.0 L TSH Free T4 PTH Intact Urine WBC (Auto) Urine Creatinine Salicylates Acetaminophen 11/07/18 11/07/18 11/07/18 04:13 05:17 09:15 WBC RBC Hgb Hct RDW Plt Count Lymph % (Auto) [place] % (Auto) Lymph # Seg Neutrophils % Seg Neuts % (Manual) Lymphocytes % (Manual) Seg Neutrophils # Seg Neutrophils # Man Lymphocytes # (Manual) PT INR POC ABG pCO2 VBG pH Sodium Potassium Chloride Carbon Dioxide BUN Creatinine Glucose POC Glucose 256 H 287 H Lactic Acid Calcium Ionized Calcium Phosphorus Magnesium AST Total Creatine Kinase 2918 H C-Reactive Protein Total Protein Albumin TSH Free T4 PTH Intact Urine WBC (Auto) Urine Creatinine Salicylates Acetaminophen 11/07/18 11/07/18 11/07/18 13:27 15:10 16:38 WBC RBC Hgb 10.2 L Hct 31.2 L RDW Plt Count Lymph % (Auto) [place] % (Auto) Lymph # Seg Neutrophils % Seg Neuts % (Manual) Lymphocytes % (Manual) Seg Neutrophils # Seg Neutrophils # Man Lymphocytes # (Manual) PT INR POC ABG pCO2 VBG pH Sodium Potassium Chloride Carbon Dioxide BUN Creatinine Glucose POC Glucose 281 H 284 H Lactic Acid Calcium Ionized Calcium Phosphorus Magnesium AST Total Creatine Kinase C-Reactive Protein Total Protein Albumin TSH Free T4 PTH Intact Urine WBC (Auto) Urine Creatinine Salicylates Acetaminophen 11/07/18 11/07/18 11/08/18 21:08 21:41 01:24 WBC RBC Hgb 10.2 L Hct 30.8 L RDW Plt Count Lymph % (Auto) [place] % (Auto) Lymph # Seg Neutrophils % Seg Neuts % (Manual) Lymphocytes % (Manual) Seg Neutrophils # Seg Neutrophils # Man Lymphocytes # (Manual) PT INR POC ABG pCO2 VBG pH Sodium Potassium Chloride Carbon Dioxide BUN Creatinine Glucose POC Glucose 349 H 363 H Lactic Acid Calcium Ionized Calcium Phosphorus Magnesium AST Total Creatine Kinase C-Reactive Protein Total Protein Albumin TSH Free T4 PTH Intact Urine WBC (Auto) Urine Creatinine Salicylates Acetaminophen 11/08/18 11/08/18 11/08/18 04:30 04:30 04:30 WBC RBC 3.26 L Hgb 10.2 L Hct 29.9 L RDW Plt Count 103 L Lymph % (Auto) 7.7 L [place] % (Auto) 7.5 H Lymph # 0.8 L Seg Neutrophils % 83.6 H Seg Neuts % (Manual) Lymphocytes % (Manual) Seg Neutrophils # 8.6 H Seg Neutrophils # Man Lymphocytes # (Manual) PT INR POC ABG pCO2 VBG pH Sodium 157 H Potassium 3.5 L Chloride 119.8 H Carbon Dioxide BUN 52 H Creatinine 1.9 H Glucose 244 H POC Glucose Lactic Acid Calcium 7.3 L Ionized Calcium Phosphorus Magnesium AST 88 H Total Creatine Kinase 1829 H C-Reactive Protein Total Protein 4.4 L D Albumin 2.3 L TSH Free T4 PTH Intact Urine WBC (Auto) Urine Creatinine Salicylates Acetaminophen 11/08/18 11/08/18 11/08/18 05:34 09:12 14:20 WBC RBC Hgb Hct RDW Plt Count Lymph % (Auto) [place] % (Auto) Lymph # Seg Neutrophils % Seg Neuts % (Manual) Lymphocytes % (Manual) Seg Neutrophils # Seg Neutrophils # Man Lymphocytes # (Manual) PT INR POC ABG pCO2 VBG pH Sodium Potassium Chloride Carbon Dioxide BUN Creatinine Glucose POC Glucose 250 H 299 H 379 H Lactic Acid Calcium Ionized Calcium Phosphorus Magnesium AST Total Creatine Kinase C-Reactive Protein Total Protein Albumin TSH Free T4 PTH Intact Urine WBC (Auto) Urine Creatinine Salicylates Acetaminophen 0711/08/18 11/08/18 14:40 17:14 21:59 WBC RBC Hgb 10.2 L Hct 30.8 L RDW Plt Count Lymph % (Auto) [place] % (Auto) Lymph # Seg Neutrophils % Seg Neuts % (Manual) Lymphocytes % (Manual) Seg Neutrophils # Seg Neutrophils # Man Lymphocytes # (Manual) PT INR POC ABG pCO2 VBG pH Sodium Potassium Chloride Carbon Dioxide BUN Creatinine Glucose POC Glucose 356 H 385 H Lactic Acid Calcium Ionized Calcium Phosphorus Magnesium AST Total Creatine Kinase C-Reactive Protein Total Protein Albumin TSH Free T4 PTH Intact Urine WBC (Auto) Urine Creatinine Salicylates Acetaminophen 11/09/18 11/09/18 11/09/18 00:57 04:33 04:33 WBC RBC 3.20 L Hgb 9.7 L Hct 29.3 L RDW Plt Count 117 L Lymph % (Auto) 8.2 L [place] % (Auto) 7.4 H Lymph # 0.8 L Seg Neutrophils % 83.2 H Seg Neuts % (Manual) Lymphocytes % (Manual) Seg Neutrophils # Seg Neutrophils # Man Lymphocytes # (Manual) PT INR POC ABG pCO2 VBG pH Sodium 148 H D Potassium Chloride 113.2 H Carbon Dioxide BUN 37 H Creatinine Glucose 252 H POC Glucose 362 H Lactic Acid Calcium 7.8 L Ionized Calcium Phosphorus 1.90 L Magnesium AST 52 H Total Creatine Kinase C-Reactive Protein Total Protein 5.3 L D Albumin 1.6 L TSH Free T4 PTH Intact Urine WBC (Auto) Urine Creatinine Salicylates Acetaminophen 11/09/18 11/09/18 11/09/18 05:24 09:15 13:12 WBC RBC Hgb Hct RDW Plt Count Lymph % (Auto) [place] % (Auto) Lymph # Seg Neutrophils % Seg Neuts % (Manual) Lymphocytes % (Manual) Seg Neutrophils # Seg Neutrophils # Man Lymphocytes # (Manual) PT INR POC ABG pCO2 VBG pH Sodium Potassium Chloride Carbon Dioxide BUN Creatinine Glucose POC Glucose 304 H 297 H 300 H Lactic Acid Calcium Ionized Calcium Phosphorus Magnesium AST Total Creatine Kinase C-Reactive Protein Total Protein Albumin TSH Free T4 PTH Intact Urine WBC (Auto) Urine Creatinine Salicylates Acetaminophen 11/09/18 11/09/18 11/10/18 17:35 21:09 00:55 WBC RBC Hgb Hct RDW Plt Count Lymph % (Auto) [place] % (Auto) Lymph # Seg Neutrophils % Seg Neuts % (Manual) Lymphocytes % (Manual) Seg Neutrophils # Seg Neutrophils # Man Lymphocytes # (Manual) PT INR POC ABG pCO2 VBG pH Sodium Potassium Chloride Carbon Dioxide BUN Creatinine Glucose POC Glucose 262 H 213 H 283 H Lactic Acid Calcium Ionized Calcium Phosphorus Magnesium AST Total Creatine Kinase C-Reactive Protein Total Protein Albumin TSH Free T4 PTH Intact Urine WBC (Auto) Urine Creatinine Salicylates Acetaminophen 11/10/18 11/10/18 11/10/18 04:46 04:46 04:46 WBC RBC 3.17 L Hgb 9.6 L Hct 28.7 L RDW Plt Count Lymph % (Auto) 10.3 L [place] % (Auto) 10.0 H Lymph # 0.8 L Seg Neutrophils % 78.6 H Seg Neuts % (Manual) Lymphocytes % (Manual) Seg Neutrophils # Seg Neutrophils # Man Lymphocytes # (Manual) PT INR POC ABG pCO2 VBG pH Sodium 151 H Potassium 3.5 L Chloride 115.1 H Carbon Dioxide BUN 30 H Creatinine Glucose 183 H POC Glucose Lactic Acid Calcium 7.8 L Ionized Calcium Phosphorus Magnesium AST Total Creatine Kinase 408 H C-Reactive Protein Total Protein 5.7 L Albumin 1.8 L TSH Free T4 PTH Intact Urine WBC (Auto) Urine Creatinine Salicylates Acetaminophen 11/10/18 11/10/18 11/10/18 05:12 08:06 11:32 WBC RBC Hgb Hct RDW Plt Count Lymph % (Auto) [place] % (Auto) Lymph # Seg Neutrophils % Seg Neuts % (Manual) Lymphocytes % (Manual) Seg Neutrophils # Seg Neutrophils # Man Lymphocytes # (Manual) PT INR POC ABG pCO2 VBG pH Sodium Potassium Chloride Carbon Dioxide BUN Creatinine Glucose POC Glucose 201 H 195 H 302 H Lactic Acid Calcium Ionized Calcium Phosphorus Magnesium AST Total Creatine Kinase C-Reactive Protein Total Protein Albumin TSH Free T4 PTH Intact Urine WBC (Auto) Urine Creatinine Salicylates Acetaminophen 11/10/18 11/10/18 11/11/18 15:55 21:44 02:06 WBC RBC Hgb Hct RDW Plt Count Lymph % (Auto) [place] % (Auto) Lymph # Seg Neutrophils % Seg Neuts % (Manual) Lymphocytes % (Manual) Seg Neutrophils # Seg Neutrophils # Man Lymphocytes # (Manual) PT INR POC ABG pCO2 VBG pH Sodium Potassium Chloride Carbon Dioxide BUN Creatinine Glucose POC Glucose 292 H 348 H 370 H Lactic Acid Calcium Ionized Calcium Phosphorus Magnesium AST Total Creatine Kinase C-Reactive Protein Total Protein Albumin TSH Free T4 PTH Intact Urine WBC (Auto) Urine Creatinine Salicylates Acetaminophen 11/11/18 11/11/18 11/11/18 04:42 04:42 05:20 WBC RBC 3.13 L Hgb 9.5 L Hct 28.2 L RDW Plt Count Lymph % (Auto) [place] % (Auto) Lymph # Seg Neutrophils % Seg Neuts % (Manual) 91.0 H Lymphocytes % (Manual) 4.0 L Seg Neutrophils # Seg Neutrophils # Man 8.6 H Lymphocytes # (Manual) 0.4 L PT INR POC ABG pCO2 VBG pH Sodium Potassium Chloride 109.6 H Carbon Dioxide BUN 28 H Creatinine Glucose 263 H POC Glucose 272 H Lactic Acid Calcium 7.9 L Ionized Calcium Phosphorus Magnesium AST Total Creatine Kinase C-Reactive Protein Total Protein 5.6 L Albumin 1.6 L TSH Free T4 PTH Intact Urine WBC (Auto) Urine Creatinine Salicylates Acetaminophen 11/11/18 11/11/18 11/11/18 08:30 13:09 17:10 WBC RBC Hgb Hct RDW Plt Count Lymph % (Auto) [place] % (Auto) Lymph # Seg Neutrophils % Seg Neuts % (Manual) Lymphocytes % (Manual) Seg Neutrophils # Seg Neutrophils # Man Lymphocytes # (Manual) PT INR POC ABG pCO2 VBG pH Sodium Potassium Chloride Carbon Dioxide BUN Creatinine Glucose POC Glucose 290 H 340 H 276 H Lactic Acid Calcium Ionized Calcium Phosphorus Magnesium AST Total Creatine Kinase C-Reactive Protein Total Protein Albumin TSH Free T4 PTH Intact Urine WBC (Auto) Urine Creatinine Salicylates Acetaminophen 11/11/18 11/12/18 11/12/18 22:19 00:29 04:51 WBC RBC 3.22 L Hgb 9.7 L Hct 28.6 L RDW Plt Count 454 H Lymph % (Auto) 7.0 L [place] % (Auto) 7.5 H Lymph # 0.7 L Seg Neutrophils % 83.7 H Seg Neuts % (Manual) Lymphocytes % (Manual) Seg Neutrophils # 7.8 H Seg Neutrophils # Man Lymphocytes # (Manual) PT INR POC ABG pCO2 VBG pH Sodium Potassium Chloride Carbon Dioxide BUN Creatinine Glucose POC Glucose 284 H 262 H Lactic Acid Calcium Ionized Calcium Phosphorus Magnesium AST Total Creatine Kinase C-Reactive Protein Total Protein Albumin TSH Free T4 PTH Intact Urine WBC (Auto) Urine Creatinine Salicylates Acetaminophen 11/12/18 11/12/1811/12/19 04:51 05:24 09:54 WBC RBC Hgb Hct RDW Plt Count Lymph % (Auto) [place] % (Auto) Lymph # Seg Neutrophils % Seg Neuts % (Manual) Lymphocytes % (Manual) Seg Neutrophils # Seg Neutrophils # Man Lymphocytes # (Manual) PT INR POC ABG pCO2 VBG pH Sodium Potassium Chloride 109.1 H Carbon Dioxide BUN 24 H Creatinine Glucose 334 H POC Glucose 335 H 288 H Lactic Acid Calcium 8.2 L Ionized Calcium Phosphorus Magnesium AST Total Creatine Kinase C-Reactive Protein Total Protein 5.5 L Albumin 1.8 L TSH Free T4 PTH Intact Urine WBC (Auto) Urine Creatinine Salicylates Acetaminophen 11/12/18 11/12/18 11/12/18 13:16 16:41 20:58 WBC RBC Hgb Hct RDW Plt Count Lymph % (Auto) [place] % (Auto) Lymph # Seg Neutrophils % Seg Neuts % (Manual) Lymphocytes % (Manual) Seg Neutrophils # Seg Neutrophils # Man Lymphocytes # (Manual) PT INR POC ABG pCO2 VBG pH Sodium Potassium Chloride Carbon Dioxide BUN Creatinine Glucose POC Glucose 245 H 343 H 403 H Lactic Acid Calcium Ionized Calcium Phosphorus Magnesium AST Total Creatine Kinase C-Reactive Protein Total Protein Albumin TSH Free T4 PTH Intact Urine WBC (Auto) Urine Creatinine Salicylates Acetaminophen 11/13/18 11/13/18 11/13/18 00:21 04:15 04:15 WBC RBC 3.15 L Hgb 9.6 L Hct 28.0 L RDW Plt Count 633 H Lymph % (Auto) 8.8 L [place] % (Auto) 7.6 H Lymph # 0.7 L Seg Neutrophils % 82.2 H Seg Neuts % (Manual) Lymphocytes % (Manual) Seg Neutrophils # Seg Neutrophils # Man Lymphocytes # (Manual) PT INR POC ABG pCO2 VBG pH Sodium 148 H Potassium Chloride 110.1 H Carbon Dioxide BUN 26 H Creatinine Glucose 337 H POC Glucose 391 H Lactic Acid Calcium 8.0 L Ionized Calcium Phosphorus Magnesium AST Total Creatine Kinase C-Reactive Protein Total Protein 5.7 L Albumin 1.8 L TSH Free T4 PTH Intact Urine WBC (Auto) Urine Creatinine Salicylates Acetaminophen 11/13/18 11/13/18 11/13/18 04:32 09:08 17:04 WBC RBC Hgb Hct RDW Plt Count Lymph % (Auto) [place] % (Auto) Lymph # Seg Neutrophils % Seg Neuts % (Manual) Lymphocytes % (Manual) Seg Neutrophils # Seg Neutrophils # Man Lymphocytes # (Manual) PT INR POC ABG pCO2 VBG pH Sodium Potassium Chloride Carbon Dioxide BUN Creatinine Glucose POC Glucose 350 H 285 H 345 H Lactic Acid Calcium Ionized Calcium Phosphorus Magnesium AST Total Creatine Kinase C-Reactive Protein Total Protein Albumin TSH Free T4 PTH Intact Urine WBC (Auto) Urine Creatinine Salicylates Acetaminophen 11/13/18 11/14/18 11/14/18 21:13 01:16 02:38 WBC RBC Hgb Hct RDW Plt Count Lymph % (Auto) [place] % (Auto) Lymph # Seg Neutrophils % Seg Neuts % (Manual) Lymphocytes % (Manual) Seg Neutrophils # Seg Neutrophils # Man Lymphocytes # (Manual) PT INR POC ABG pCO2 VBG pH Sodium 147 H Potassium 5.1 H D Chloride 107.3 H Carbon Dioxide BUN 27 H Creatinine 0.7 L Glucose 298 H POC Glucose 338 H 311 H Lactic Acid Calcium 7.7 L Ionized Calcium Phosphorus Magnesium AST Total Creatine Kinase C-Reactive Protein Total Protein Albumin TSH Free T4 PTH Intact Urine WBC (Auto) Urine Creatinine Salicylates Acetaminophen 11/14/18 11/14/18 11/14/18 05:22 09:09 14:21 WBC RBC Hgb Hct RDW Plt Count Lymph % (Auto) [place] % (Auto) Lymph # Seg Neutrophils % Seg Neuts % (Manual) Lymphocytes % (Manual) Seg Neutrophils # Seg Neutrophils # Man Lymphocytes # (Manual) PT INR POC ABG pCO2 VBG pH Sodium Potassium Chloride Carbon Dioxide BUN Creatinine Glucose POC Glucose 250 H 266 H 270 H Lactic Acid Calcium Ionized Calcium Phosphorus Magnesium AST Total Creatine Kinase C-Reactive Protein Total Protein Albumin TSH Free T4 PTH Intact Urine WBC (Auto) Urine Creatinine Salicylates Acetaminophen 11/14/18 11/14/18 11/15/18 17:06 21:08 01:16 WBC RBC Hgb Hct RDW Plt Count Lymph % (Auto) [place] % (Auto) Lymph # Seg Neutrophils % Seg Neuts % (Manual) Lymphocytes % (Manual) Seg Neutrophils # Seg Neutrophils # Man Lymphocytes # (Manual) PT INR POC ABG pCO2 VBG pH Sodium Potassium Chloride Carbon Dioxide BUN Creatinine Glucose POC Glucose 264 H 257 H 214 H Lactic Acid Calcium Ionized Calcium Phosphorus Magnesium AST Total Creatine Kinase C-Reactive Protein Total Protein Albumin TSH Free T4 PTH Intact Urine WBC (Auto) Urine Creatinine Salicylates Acetaminophen 11/15/18 11/15/18 11/15/18 03:58 03:58 05:01 WBC RBC 3.03 L Hgb 9.2 L Hct 26.8 L RDW 13.1 L Plt Count 831 H Lymph % (Auto) [place] % (Auto) 7.5 H Lymph # Seg Neutrophils % 75.0 H Seg Neuts % (Manual) Lymphocytes % (Manual) Seg Neutrophils # Seg Neutrophils # Man Lymphocytes # (Manual) PT INR POC ABG pCO2 VBG pH Sodium 148 H Potassium Chloride 108.5 H Carbon Dioxide 31 H BUN 22 H Creatinine 0.7 L Glucose 184 H POC Glucose 160 H Lactic Acid Calcium 8.3 L Ionized Calcium Phosphorus Magnesium AST Total Creatine Kinase C-Reactive Protein Total Protein 5.6 L Albumin 2.2 L TSH Free T4 PTH Intact Urine WBC (Auto) Urine Creatinine Salicylates Acetaminophen 11/15/18 11/15/18 11/15/18 09:12 14:47 16:38 WBC RBC Hgb Hct RDW Plt Count Lymph % (Auto) [place] % (Auto) Lymph # Seg Neutrophils % Seg Neuts % (Manual) Lymphocytes % (Manual) Seg Neutrophils # Seg Neutrophils # Man Lymphocytes # (Manual) PT INR POC ABG pCO2 VBG pH Sodium Potassium Chloride Carbon Dioxide BUN Creatinine Glucose POC Glucose 139 H 221 H 259 H Lactic Acid Calcium Ionized Calcium Phosphorus Magnesium AST Total Creatine Kinase C-Reactive Protein Total Protein Albumin TSH Free T4 PTH Intact Urine WBC (Auto) Urine Creatinine Salicylates Acetaminophen 11/15/18 11/16/18 11/16/18 21:17 00:53 04:41 WBC RBC Hgb Hct RDW Plt Count Lymph % (Auto) [place] % (Auto) Lymph # Seg Neutrophils % Seg Neuts % (Manual) Lymphocytes % (Manual) Seg Neutrophils # Seg Neutrophils # Man Lymphocytes # (Manual) PT INR POC ABG pCO2 VBG pH Sodium Potassium Chloride Carbon Dioxide 31 H BUN Creatinine 0.6 L Glucose 142 H POC Glucose 187 H 183 H Lactic Acid Calcium 8.1 L Ionized Calcium Phosphorus Magnesium AST Total Creatine Kinase C-Reactive Protein Total Protein 5.6 L Albumin 2.3 L TSH Free T4 PTH Intact Urine WBC (Auto) Urine Creatinine Salicylates Acetaminophen 11/16/18 11/16/18 11/16/18 04:46 10:01 13:09 WBC RBC Hgb Hct RDW Plt Count Lymph % (Auto) [place] % (Auto) Lymph # Seg Neutrophils % Seg Neuts % (Manual) Lymphocytes % (Manual) Seg Neutrophils # Seg Neutrophils # Man Lymphocytes # (Manual) PT INR POC ABG pCO2 VBG pH Sodium Potassium Chloride Carbon Dioxide BUN Creatinine Glucose POC Glucose 135 H 270 H 221 H Lactic Acid Calcium Ionized Calcium Phosphorus Magnesium AST Total Creatine Kinase C-Reactive Protein Total Protein Albumin TSH Free T4 PTH Intact Urine WBC (Auto) Urine Creatinine Salicylates Acetaminophen Allied health notes reviewed: nursing
[2018-11-16] MEDS: LANTUS SUB-Q SCH (22:11)
[2018-11-17] MEDS: HumaLOG SUB-Q SCH ×6 (01:00→22:06)
[2018-11-17 05:48] LABS: Alanine Aminotransferase 13 units/L (7-56); Albumin 2.3 g/dL (3.9-5); BUN/Creatinine Ratio 23; Blood Urea Nitrogen 14 mg/dL (9-20); Hemolysis Index 2
--- NOTE | 2018-11-17 10:07 | Progress Note ---
Assessment and Plan 53 YO Male with DM presents to ED for evaluation. Pt is stuporous st time of my exam and unable to provide history. Pt history taken from EMS as well as ED staff. As per staff, the patient found down and unresponsive in his home. Pt last contact with family was 5 days ago. At that time the patient was in his usual state of health. A well check was conducted, and the patient was unable to answer the door. Law Enforcement was contacted, and gained entry into the home. The patient was subsequently found down, and unresponsive and lying on the kitchen floor covered in fecal matter. EMS notified, and upon arrival the patient was found to have a serum glucose above 500, and in distress. Pt transported to [facility]. Pt seen and evaluated in ED and found to have DKA, Metabolic Encephalopathy, Sepsis suspected secondary to UTI, Rhabdomyolysis, Acidosis, and Acute Kidney Injury. Pt admitted to ICU and initiated on Sepsis protocol, as well as DKA protocol. Nephrology consulted in ED. Pulmonary team consulted in ED. No further history obtainable. No prior admission for review. No medication listed at time of admission for reconciliation. Patient was then admitted and commenced on DKA protocol. Glucose 1088 on admit, now 195. BUN 200 on admit, now 98. Found to be hypernatremic with improved glycemic control. Low T4 and elevarted TSH levels - Metabolic encephalopathy - improving. Follows all commands - Debilitation from prolonged illness PT/OT - Sepsis - resolved Dysphagia Video fluoroscopic swallow showed no evidence of aspitation Will D/c NGT and commence oral feeding - Fever and white count since resolved. Unclear etiology of sepsis as all cultures are negative. Would continue to levofloxacin for now while blood cultures continue to incubate. Possible UTI, UA with pyuria but otherwise not significant. UCx negative. - T2DM s/p resolved DKA. Continue with SSI Accu-Check NGT feeding - Dysphagia Failed swallowing study Will repeat in view of his improved clinical status - Milk hyperkalemia corrected - JAVY due to vasomotor nephropathy - improving IV hydration Nephrology consulted and following - Hypernatremia -improved continue free water via NG tube - Hypothyroidism Supplement thyroid - Severe Protein calorie malnutrition Dietary consult - UTI will continue levofloxacin. Urine Cx no growth so far - Rhabdomylosis - improving Cautious IV hydration Serial CK levels - Dark stool - resolved iv pentaprazole GI consult input appreciated - DVT and GI prophylaxis with Lovenox and omeprazole - CODE STATUS: Patient is full code - Disposition: Discussed with [facility] Transfer to SNF for PT whenever bed is available - Time spent: 25 min minutes Subjective Date of service: 11/17/18 Principal diagnosis: Ac hypoxemic resp failure; Severe sepsis; DKA; JAVY; Ac encephalopathy; UTI Interval history: Patient seen and examined. Alert and oriented x 3. Moved his arms but weak on his lower extremities. Objective - Exam Narrative Exam: Constitutional: Alert adn oriented x 3. Very interactive. Still Ill-looking Head: Normocephalic atraumatic Eyes: Pupils are equal round and reactive to light Nose: No enlarged turbinates, no septal deviation. Mouth: Moist mucous membranes. ON NGT feeding Neck: Supple no thyromegaly. No bruit. No JVD Heart: Regular rate and rhythm, S1-S2 normal. No rubs murmurs or gallop Lungs: Clear to auscultation bilaterally. no rales or rhonchi Abdomen: Soft, nontender. Bowel sound are present. Extremities: No edema, no cyanosis, no clubbing. skin ulcers Neuro:AxO x3 . Answers all short question appropriately. weak only in both LEs Skin: Skin ulcer in the lower extrmities Musculoskeletal system: No joint pain or swelling Hematological: No petechia or subcutanous hemorrhages. Immunological: No multiple septic spots on the skin Lymphatic: No generalized lymphadenopathy Psychiatry: No depression - Constitutional Vitals: Vital Signs - 12hr 11/16/18 11/16/18 11/17/18 23:00 23:46 00:00 Temperature 98 F Pulse Rate 81 78 Pulse Rate [ 82 From Monitor] Respiratory 20 20 Rate Blood Pressure 104/62 111/60 O2 Sat by Pulse 95 94 Oximetry 11/17/18 11/17/18 11/17/18 01:00 02:00 03:00 Temperature Pulse Rate 86 83 81 Pulse Rate [ From Monitor] Respiratory 21 16 21 Rate Blood Pressure 115/72 107/63 107/63 O2 Sat by Pulse 95 96 96 Oximetry 11/17/18 11/17/18 11/17/18 03:38 04:00 05:00 Temperature 98.8 F Pulse Rate 85 80 Pulse Rate [ 83 From Monitor] Respiratory 19 19 Rate Blood Pressure 103/69 123/74 O2 Sat by Pulse 95 95 Oximetry 11/17/18 11/17/18 06:00 09:09 Temperature Pulse Rate 85 Pulse Rate [ From Monitor] Respiratory 21 Rate Blood Pressure 102/63 O2 Sat by Pulse 96 94 Oximetry - Labs CBC & Chem 7: 11/15/18 03:58 11/17/18 04:48 Labs: Abnormal lab results 11/16/18 11/16/18 11/16/18 Range/Units 10:01 13:09 17:06 Creatinine (0.8-1.5) mg/dL Glucose (75-100) mg/dL POC Glucose 270 H 221 H 226 H (70-105) Calcium (8.4-10.2) mg/dL Total Protein (6.3-8.2) g/dL Albumin (3.9-5) g/dL 11/16/18 11/17/18 11/17/18 Range/Units 21:54 01:52 04:48 Creatinine 0.6 L (0.8-1.5) mg/dL Glucose 175 H (75-100) mg/dL POC Glucose 148 H 152 H (70-105) Calcium 8.0 L (8.4-10.2) mg/dL Total Protein 5.6 L (6.3-8.2) g/dL Albumin 2.3 L (3.9-5) g/dL 11/17/18 11/17/18 Range/Units 05:31 07:48 Creatinine (0.8-1.5) mg/dL Glucose (75-100) mg/dL POC Glucose 140 H 154 H (70-105) Calcium (8.4-10.2) mg/dL Total Protein (6.3-8.2) g/dL Albumin (3.9-5) g/dL
[2018-11-17] MEDS: PREVACID SOLUTAB FEEDTUBE SCH ×2 (10:53→22:37)
[2018-11-17] MEDS: FLOMAX PO SCH (10:54)
[2018-11-17] MEDS: TYLENOL FEEDTUBE PRN (10:55)
[2018-11-17] MEDS: SODIUM CHLORIDE FLUSH SYRINGE 10 ML IV SCH ×2 (10:55→22:00)
[2018-11-17] MEDS: HEPARIN SUB-Q SCH ×2 (10:57→22:05)
--- NOTE | 2018-11-17 14:33 | Progress Note ---
Assessment and Plan Acute hypoxemic respiratory failure, on supplemental oxygen. Severe sepsis with shock (unspecified) Diabetic ketoacidosis. Acute kidney injury, likely secondary to rhabdomyolysis. Rhabdomyolysis. Acute encephalopathy, likely toxic metabolic. Hyperkalemia. Possible urinary tract infection. Severe metabolic acidosis. Possible hypothyroidism. Leukocytosis - continue Flomax re: urinary retention - continue ST evaluation and advance diet as tolerated - wean supplemental oxygen as needed to keep O2 sat's > 90% - neurology evaluation ongoing and input appreciated - completed empiric Levaquin monotherapy - trend CRP and lactate prn to aid clinical decision making - continue long acting insulin therapy with SSI for target BG < 180 mg/dl acutely - Azotemia resolved - avoid nephrotoxins and renally adjust all medications as needed - stopped thyroid hormone supplementation - cpk level now WNL - wound care per WCT - continue GI & VTE prophylaxis - aspiration precautions - flu & pneumovax addressed per protocol - resume chronic disease med's per attending - prn bronchodilators with pulmonary hygiene per RT - continue enteral nutrition as tolerated - Agitation management - Prevention of delirium, maintenance of sleep-wake cycle - continue other care per attending / other consultants ... transfer to medical floor ... re-evaluate in am & prn Subjective Date of service: 11/17/18 Principal diagnosis: Ac hypoxemic resp failure; Severe sepsis; DKA; JAVY; Ac encephalopathy; UTI Interval history: Patient is seen today for: Acute hypoxemic respiratory failure; Severe sepsis with shock; Diabetic ketoacidosis; Acute kidney injury; Rhabdomyolysis; Acute encephalopathy, likely toxic metabolic; Hyperkalemia; Possible urinary tract infection; Severe metabolic acidosis; Possible hypothyroidism; Leukocytosis Seen and examined at bedside; 24hour events reviewed; nursing and respiratory care staff consulted; no adverse overnight events reported to me; resting peacefully in bed; continues to do well; no new issues today Objective Vital Signs - 12hr 11/17/18 11/17/18 11/17/18 03:00 03:38 04:00 Temperature 98.8 F Pulse Rate 81 85 Pulse Rate [ 83 From Monitor] Respiratory 21 19 Rate Blood Pressure 107/63 103/69 O2 Sat by Pulse 96 95 Oximetry 11/17/18 11/17/18 11/17/18 05:00 06:00 09:09 Temperature Pulse Rate 80 85 Pulse Rate [ From Monitor] Respiratory 19 21 Rate Blood Pressure 123/74 102/63 O2 Sat by Pulse 95 96 94 Oximetry 11/17/18 12:00 Temperature 98.5 F Pulse Rate Pulse Rate [ From Monitor] Respiratory Rate Blood Pressure O2 Sat by Pulse Oximetry Constitutional: alert, other (middle aged normocephalic and atraumatic AAM) Eyes: non-icteric ENT: oropharynx moist, other (mallampati 2) Neck: supple, no lymphadenopathy, no JVD Effort: mildly labored Ascultation: Bilateral: clear, diminished breath sounds Percussion: Bilateral: not dull Cardiovascular: regular rate and rhythm Gastrointestinal: normoactive bowel sounds, soft, non-tender, non-distended Integumentary: normal Extremities: no cyanosis, no edema, pulses normal, no ischemia or petechiae Neurologic: non-focal exam, pupils equal and round, CN II-XII normal, other (weak, deconditioned) Psychiatric: mood appropriate, affect normal, other (unable to assess re: AMS) CBC and BMP: 11/15/18 03:58 11/17/18 04:48 ABG, PT/INR, D-dimer: ABG POC ABG pH 7.432 (7.35-7.45) 11/05/18 17:08 POC ABG pCO2 32.3 (35-45) L 11/05/18 17:08 POC ABG HCO3 21.5 (22-26 mml/L) 11/05/18 17:08 POC ABG Total CO2 23 (23-27mmol/L) 11/05/18 17:08 POC ABG O2 Sat 85 11/05/18 17:08 PT/INR, D-dimer PT 15.6 Sec. (12.2-14.9) H 11/04/18 16:05 INR 1.27 (0.87-1.13) H 11/04/18 16:05 Abnormal lab findings: Abnormal Labs 11/04/18 11/04/18 11/04/18 15:23 15:35 16:05 WBC 12.6 H RBC Hgb Hct RDW Plt Count Lymph % (Auto) Barton % (Auto) Lymph # Seg Neutrophils % Seg Neuts % (Manual) 84.0 H Lymphocytes % (Manual) 1.0 L Seg Neutrophils # Seg Neutrophils # Man 10.6 H Lymphocytes # (Manual) 0.1 L PT INR POC ABG pCO2 VBG pH Sodium Potassium Chloride Carbon Dioxide BUN Creatinine Glucose POC Glucose > 500 H Lactic Acid Calcium Ionized Calcium Phosphorus Magnesium AST Total Creatine Kinase C-Reactive Protein Total Protein Albumin TSH Free T4 PTH Intact Urine WBC (Auto) 12.0 H Urine Creatinine Salicylates Acetaminophen 11/04/18 11/04/18 11/04/18 16:05 16:05 16:05 WBC RBC Hgb Hct RDW Plt Count Lymph % (Auto) Barton % (Auto) Lymph # Seg Neutrophils % Seg Neuts % (Manual) Lymphocytes % (Manual) Seg Neutrophils # Seg Neutrophils # Man Lymphocytes # (Manual) PT 15.6 H INR 1.27 H POC ABG pCO2 VBG pH Sodium 153 H Potassium 6.2 H* Chloride Carbon Dioxide 18 L BUN 200 H Creatinine 6.8 H Glucose 1088 H* POC Glucose Lactic Acid 2.80 H* Calcium 7.2 L Ionized Calcium Phosphorus Magnesium AST Total Creatine Kinase C-Reactive Protein Total Protein Albumin 3.1 L TSH Free T4 PTH Intact Urine WBC (Auto) Urine Creatinine Salicylates Acetaminophen 11/04/18 11/04/18 11/04/18 16:05 16:05 16:05 WBC RBC Hgb Hct RDW Plt Count Lymph % (Auto) [place] % (Auto) Lymph # Seg Neutrophils % Seg Neuts % (Manual) Lymphocytes % (Manual) Seg Neutrophils # Seg Neutrophils # Man Lymphocytes # (Manual) PT INR POC ABG pCO2 VBG pH 7.245 L Sodium Potassium Chloride Carbon Dioxide BUN Creatinine Glucose POC Glucose Lactic Acid Calcium Ionized Calcium Phosphorus 13.80 H Magnesium 3.60 H AST Total Creatine Kinase C-Reactive Protein Total Protein Albumin TSH 0.169 L Free T4 0.68 L PTH Intact Urine WBC (Auto) Urine Creatinine Salicylates Acetaminophen 11/04/18 11/04/18 11/04/18 16:05 16:48 19:40 WBC RBC Hgb Hct RDW Plt Count Lymph % (Auto) [place] % (Auto) Lymph # Seg Neutrophils % Seg Neuts % (Manual) Lymphocytes % (Manual) Seg Neutrophils # Seg Neutrophils # Man Lymphocytes # (Manual) PT INR POC ABG pCO2 VBG pH Sodium Potassium Chloride Carbon Dioxide BUN Creatinine Glucose POC Glucose > 500 H 458 H Lactic Acid Calcium Ionized Calcium Phosphorus Magnesium AST Total Creatine Kinase 1857 H C-Reactive Protein Total Protein Albumin TSH Free T4 PTH Intact Urine WBC (Auto) Urine Creatinine Salicylates Acetaminophen 11/04/18 11/04/18 11/04/18 20:29 20:29 20:29 WBC RBC Hgb Hct RDW Plt Count Lymph % (Auto) [place] % (Auto) Lymph # Seg Neutrophils % Seg Neuts % (Manual) Lymphocytes % (Manual) Seg Neutrophils # Seg Neutrophils # Man Lymphocytes # (Manual) PT INR POC ABG pCO2 VBG pH Sodium 163 H* D Potassium Chloride 121.4 H Carbon Dioxide 21 L BUN 166 H Creatinine 5.6 H Glucose 513 H* POC Glucose Lactic Acid 3.30 H* 3.30 H* Calcium 6.4 L Ionized Calcium Phosphorus Magnesium AST Total Creatine Kinase C-Reactive Protein Total Protein Albumin TSH Free T4 PTH Intact Urine WBC (Auto) Urine Creatinine Salicylates Acetaminophen 11/04/18 11/04/18 11/04/18 20:55 21:03 22:00 WBC RBC Hgb Hct RDW Plt Count Lymph % (Auto) [place] % (Auto) Lymph # Seg Neutrophils % Seg Neuts % (Manual) Lymphocytes % (Manual) Seg Neutrophils # Seg Neutrophils # Man Lymphocytes # (Manual) PT INR POC ABG pCO2 VBG pH Sodium Potassium Chloride Carbon Dioxide BUN Creatinine Glucose POC Glucose 496 H Lactic Acid 3.60 H* Calcium Ionized Calcium Phosphorus Magnesium AST Total Creatine Kinase C-Reactive Protein Total Protein Albumin TSH Free T4 PTH Intact Urine WBC (Auto) Urine Creatinine 58.1 H Salicylates Acetaminophen 11/04/18 11/04/18 11/04/18 22:04 23:07 23:47 WBC RBC Hgb Hct RDW Plt Count Lymph % (Auto) [place] % (Auto) Lymph # Seg Neutrophils % Seg Neuts % (Manual) Lymphocytes % (Manual) Seg Neutrophils # Seg Neutrophils # Man Lymphocytes # (Manual) PT INR POC ABG pCO2 VBG pH Sodium 170 H* Potassium Chloride 127.1 H Carbon Dioxide BUN 164 H Creatinine 5.2 H Glucose 213 H POC Glucose 357 H 306 H Lactic Acid Calcium 6.5 L Ionized Calcium Phosphorus Magnesium AST Total Creatine Kinase C-Reactive Protein Total Protein Albumin TSH Free T4 PTH Intact Urine WBC (Auto) Urine Creatinine Salicylates Acetaminophen 11/04/18 11/05/18 11/05/18 23:47 00:04 00:09 WBC RBC Hgb Hct RDW Plt Count Lymph % (Auto) [place] % (Auto) Lymph # Seg Neutrophils % Seg Neuts % (Manual) Lymphocytes % (Manual) Seg Neutrophils # Seg Neutrophils # Man Lymphocytes # (Manual) PT INR POC ABG pCO2 VBG pH Sodium 163 H* Potassium Chloride 127.5 H Carbon Dioxide BUN 117 H Creatinine 3.3 H Glucose 235 H POC Glucose 219 H Lactic Acid 3.20 H* Calcium 6.8 L Ionized Calcium Phosphorus Magnesium AST Total Creatine Kinase C-Reactive Protein Total Protein Albumin TSH Free T4 PTH Intact Urine WBC (Auto) Urine Creatinine Salicylates Acetaminophen 11/05/18 11/05/18 11/05/18 00:59 03:13 03:52 WBC RBC Hgb Hct RDW Plt Count Lymph % (Auto) [place] % (Auto) Lymph # Seg Neutrophils % Seg Neuts % (Manual) Lymphocytes % (Manual) Seg Neutrophils # Seg Neutrophils # Man Lymphocytes # (Manual) PT INR POC ABG pCO2 VBG pH Sodium Potassium Chloride Carbon Dioxide BUN Creatinine Glucose POC Glucose 204 H 124 H Lactic Acid Calcium Ionized Calcium Phosphorus Magnesium AST Total Creatine Kinase 1680 H C-Reactive Protein Total Protein Albumin TSH Free T4 PTH Intact Urine WBC (Auto) Urine Creatinine Salicylates Acetaminophen 11/05/18 11/05/18 11/05/18 03:52 04:25 05:11 WBC RBC Hgb Hct RDW Plt Count Lymph % (Auto) [place] % (Auto) Lymph # Seg Neutrophils % Seg Neuts % (Manual) Lymphocytes % (Manual) Seg Neutrophils # Seg Neutrophils # Man Lymphocytes # (Manual) PT INR POC ABG pCO2 VBG pH Sodium 169 H* Potassium Chloride 126.2 H Carbon Dioxide BUN 156 H Creatinine 4.7 H Glucose 128 H POC Glucose 150 H 173 H Lactic Acid Calcium 6.3 L Ionized Calcium Phosphorus Magnesium AST Total Creatine Kinase C-Reactive Protein Total Protein Albumin TSH Free T4 PTH Intact Urine WBC (Auto) Urine Creatinine Salicylates Acetaminophen 11/05/18 11/05/18 11/05/18 06:05 06:58 07:48 WBC RBC Hgb Hct RDW Plt Count Lymph % (Auto) [place] % (Auto) Lymph # Seg Neutrophils % Seg Neuts % (Manual) Lymphocytes % (Manual) Seg Neutrophils # Seg Neutrophils # Man Lymphocytes # (Manual) PT INR POC ABG pCO2 VBG pH Sodium Potassium Chloride Carbon Dioxide BUN Creatinine Glucose POC Glucose 136 H 152 H 177 H Lactic Acid Calcium Ionized Calcium Phosphorus Magnesium AST Total Creatine Kinase C-Reactive Protein Total Protein Albumin TSH Free T4 PTH Intact Urine WBC (Auto) Urine Creatinine Salicylates Acetaminophen 11/05/18 11/05/18 11/05/18 08:21 08:21 08:23 WBC RBC Hgb Hct RDW Plt Count Lymph % (Auto) [place] % (Auto) Lymph # Seg Neutrophils % Seg Neuts % (Manual) Lymphocytes % (Manual) Seg Neutrophils # Seg Neutrophils # Man Lymphocytes # (Manual) PT INR POC ABG pCO2 VBG pH Sodium 171 H* Potassium Chloride 128.9 H Carbon Dioxide BUN 149 H Creatinine 4.5 H Glucose 159 H POC Glucose 157 H Lactic Acid Calcium 6.7 L Ionized Calcium Phosphorus Magnesium AST Total Creatine Kinase C-Reactive Protein Total Protein Albumin TSH Free T4 PTH Intact 119.3 H Urine WBC (Auto) Urine Creatinine Salicylates Acetaminophen 11/05/18 11/05/18 11/05/18 10:21 11:12 12:37 WBC RBC Hgb Hct RDW Plt Count Lymph % (Auto) [place] % (Auto) Lymph # Seg Neutrophils % Seg Neuts % (Manual) Lymphocytes % (Manual) Seg Neutrophils # Seg Neutrophils # Man Lymphocytes # (Manual) PT INR POC ABG pCO2 VBG pH Sodium Potassium Chloride Carbon Dioxide BUN Creatinine Glucose POC Glucose 171 H 155 H 145 H Lactic Acid Calcium Ionized Calcium Phosphorus Magnesium AST Total Creatine Kinase C-Reactive Protein Total Protein Albumin TSH Free T4 PTH Intact Urine WBC (Auto) Urine Creatinine Salicylates Acetaminophen 11/05/18 11/05/18 11/05/18 13:24 13:47 14:42 WBC RBC Hgb Hct RDW Plt Count Lymph % (Auto) [place] % (Auto) Lymph # Seg Neutrophils % Seg Neuts % (Manual) Lymphocytes % (Manual) Seg Neutrophils # Seg Neutrophils # Man Lymphocytes # (Manual) PT INR POC ABG pCO2 VBG pH Sodium 167 H* Potassium Chloride 131.6 H Carbon Dioxide BUN 130 H Creatinine 3.8 H Glucose 136 H POC Glucose 137 H 133 H Lactic Acid Calcium 6.4 L Ionized Calcium Phosphorus Magnesium AST Total Creatine Kinase C-Reactive Protein Total Protein Albumin TSH Free T4 PTH Intact Urine WBC (Auto) Urine Creatinine Salicylates Acetaminophen 11/05/18 11/05/18 11/05/18 16:55 17:08 18:14 WBC RBC Hgb Hct RDW Plt Count Lymph % (Auto) [place] % (Auto) Lymph # Seg Neutrophils % Seg Neuts % (Manual) Lymphocytes % (Manual) Seg Neutrophils # Seg Neutrophils # Man Lymphocytes # (Manual) PT INR POC ABG pCO2 32.3 L VBG pH Sodium Potassium Chloride Carbon Dioxide BUN Creatinine Glucose POC Glucose 194 H 195 H Lactic Acid Calcium Ionized Calcium Phosphorus Magnesium AST Total Creatine Kinase C-Reactive Protein Total Protein Albumin TSH Free T4 PTH Intact Urine WBC (Auto) Urine Creatinine Salicylates Acetaminophen 11/05/18 11/05/18 11/05/18 18:35 18:35 18:35 WBC RBC Hgb Hct RDW Plt Count Lymph % (Auto) [place] % (Auto) Lymph # Seg Neutrophils % Seg Neuts % (Manual) Lymphocytes % (Manual) Seg Neutrophils # Seg Neutrophils # Man Lymphocytes # (Manual) PT INR POC ABG pCO2 VBG pH Sodium Potassium Chloride Carbon Dioxide BUN Creatinine Glucose POC Glucose Lactic Acid Calcium Ionized Calcium Phosphorus Magnesium AST Total Creatine Kinase C-Reactive Protein 19.50 H Total Protein Albumin TSH Free T4 PTH Intact Urine WBC (Auto) Urine Creatinine Salicylates < 0.3 L Acetaminophen < 5.0 L 11/05/18 11/06/18 11/06/18 21:09 01:36 04:50 WBC RBC Hgb 11.3 L Hct 32.8 L D RDW Plt Count 110 L Lymph % (Auto) Barton % (Auto) Lymph # Seg Neutrophils % Seg Neuts % (Manual) Lymphocytes % (Manual) Seg Neutrophils # Seg Neutrophils # Man Lymphocytes # (Manual) PT INR POC ABG pCO2 VBG pH Sodium Potassium Chloride Carbon Dioxide BUN Creatinine Glucose POC Glucose 250 H 289 H Lactic Acid Calcium Ionized Calcium Phosphorus Magnesium AST Total Creatine Kinase C-Reactive Protein Total Protein Albumin TSH Free T4 PTH Intact Urine WBC (Auto) Urine Creatinine Salicylates Acetaminophen 11/06/18 11/06/18 11/06/18 04:50 04:50 05:14 WBC RBC Hgb Hct RDW Plt Count Lymph % (Auto) [place] % (Auto) Lymph # Seg Neutrophils % Seg Neuts % (Manual) Lymphocytes % (Manual) Seg Neutrophils # Seg Neutrophils # Man Lymphocytes # (Manual) PT INR POC ABG pCO2 VBG pH Sodium 165 H* 164 H* Potassium Chloride 127.4 H Carbon Dioxide BUN 113 H Creatinine 3.2 H Glucose 208 H POC Glucose 215 H Lactic Acid Calcium 6.8 L Ionized Calcium Phosphorus Magnesium AST 55 H Total Creatine Kinase C-Reactive Protein Total Protein 5.2 L D Albumin 2.3 L TSH Free T4 PTH Intact Urine WBC (Auto) Urine Creatinine Salicylates Acetaminophen 11/06/18 11/06/18 11/06/18 07:50 08:50 12:16 WBC RBC Hgb Hct RDW Plt Count Lymph % (Auto) [place] % (Auto) Lymph # Seg Neutrophils % Seg Neuts % (Manual) Lymphocytes % (Manual) Seg Neutrophils # Seg Neutrophils # Man Lymphocytes # (Manual) PT INR POC ABG pCO2 VBG pH Sodium 161 H* Potassium Chloride 126.0 H Carbon Dioxide BUN 111 H Creatinine 3.0 H Glucose 187 H POC Glucose 239 H 198 H Lactic Acid Calcium 7.0 L Ionized Calcium Phosphorus Magnesium AST Total Creatine Kinase C-Reactive Protein Total Protein Albumin TSH Free T4 PTH Intact Urine WBC (Auto) Urine Creatinine Salicylates Acetaminophen 11/06/18 11/06/18 11/06/18 15:42 15:42 17:59 WBC RBC Hgb Hct RDW Plt Count Lymph % (Auto) [place] % (Auto) Lymph # Seg Neutrophils % Seg Neuts % (Manual) Lymphocytes % (Manual) Seg Neutrophils # Seg Neutrophils # Man Lymphocytes # (Manual) PT INR POC ABG pCO2 VBG pH Sodium 162 H* Potassium Chloride 127.3 H Carbon Dioxide BUN 98 H Creatinine 2.7 H Glucose 195 H POC Glucose 225 H Lactic Acid Calcium 7.1 L Ionized Calcium 4.4 L Phosphorus Magnesium AST Total Creatine Kinase C-Reactive Protein Total Protein Albumin TSH Free T4 PTH Intact Urine WBC (Auto) Urine Creatinine Salicylates Acetaminophen 11/06/18 11/06/18 11/06/18 21:21 21:24 21:24 WBC RBC Hgb 11.0 L Hct 33.4 L RDW Plt Count Lymph % (Auto) [place] % (Auto) Lymph # Seg Neutrophils % Seg Neuts % (Manual) Lymphocytes % (Manual) Seg Neutrophils # Seg Neutrophils # Man Lymphocytes # (Manual) PT INR POC ABG pCO2 VBG pH Sodium Potassium Chloride Carbon Dioxide BUN Creatinine Glucose POC Glucose 272 H Lactic Acid Calcium Ionized Calcium Phosphorus Magnesium AST Total Creatine Kinase 3538 H C-Reactive Protein Total Protein Albumin TSH Free T4 PTH Intact Urine WBC (Auto) Urine Creatinine Salicylates Acetaminophen 11/07/18 11/07/18 11/07/18 02:01 04:13 04:13 WBC RBC Hgb 11.4 L Hct 33.8 L RDW Plt Count 103 L Lymph % (Auto) [place] % (Auto) Lymph # Seg Neutrophils % Seg Neuts % (Manual) 83.0 H Lymphocytes % (Manual) 6.0 L Seg Neutrophils # Seg Neutrophils # Man Lymphocytes # (Manual) 0.6 L PT INR POC ABG pCO2 VBG pH Sodium 161 H* Potassium Chloride 125.8 H Carbon Dioxide BUN 80 H Creatinine 2.4 H Glucose 246 H POC Glucose 282 H Lactic Acid Calcium 7.4 L Ionized Calcium Phosphorus Magnesium 2.50 H AST 106 H Total Creatine Kinase C-Reactive Protein Total Protein 5.7 L Albumin 2.0 L TSH Free T4 PTH Intact Urine WBC (Auto) Urine Creatinine Salicylates Acetaminophen 11/07/18 11/07/18 11/07/18 04:13 05:17 09:15 WBC RBC Hgb Hct RDW Plt Count Lymph % (Auto) [place] % (Auto) Lymph # Seg Neutrophils % Seg Neuts % (Manual) Lymphocytes % (Manual) Seg Neutrophils # Seg Neutrophils # Man Lymphocytes # (Manual) PT INR POC ABG pCO2 VBG pH Sodium Potassium Chloride Carbon Dioxide BUN Creatinine Glucose POC Glucose 256 H 287 H Lactic Acid Calcium Ionized Calcium Phosphorus Magnesium AST Total Creatine Kinase 2918 H C-Reactive Protein Total Protein Albumin TSH Free T4 PTH Intact Urine WBC (Auto) Urine Creatinine Salicylates Acetaminophen 11/07/18 11/07/18 11/07/18 13:27 15:10 16:38 WBC RBC Hgb 10.2 L Hct 31.2 L RDW Plt Count Lymph % (Auto) [place] % (Auto) Lymph # Seg Neutrophils % Seg Neuts % (Manual) Lymphocytes % (Manual) Seg Neutrophils # Seg Neutrophils # Man Lymphocytes # (Manual) PT INR POC ABG pCO2 VBG pH Sodium Potassium Chloride Carbon Dioxide BUN Creatinine Glucose POC Glucose 281 H 284 H Lactic Acid Calcium Ionized Calcium Phosphorus Magnesium AST Total Creatine Kinase C-Reactive Protein Total Protein Albumin TSH Free T4 PTH Intact Urine WBC (Auto) Urine Creatinine Salicylates Acetaminophen 11/07/18 11/07/18 11/08/18 21:08 21:41 01:24 WBC RBC Hgb 10.2 L Hct 30.8 L RDW Plt Count Lymph % (Auto) [place] % (Auto) Lymph # Seg Neutrophils % Seg Neuts % (Manual) Lymphocytes % (Manual) Seg Neutrophils # Seg Neutrophils # Man Lymphocytes # (Manual) PT INR POC ABG pCO2 VBG pH Sodium Potassium Chloride Carbon Dioxide BUN Creatinine Glucose POC Glucose 349 H 363 H Lactic Acid Calcium Ionized Calcium Phosphorus Magnesium AST Total Creatine Kinase C-Reactive Protein Total Protein Albumin TSH Free T4 PTH Intact Urine WBC (Auto) Urine Creatinine Salicylates Acetaminophen 11/08/18 11/08/18 11/08/18 04:30 04:30 04:30 WBC RBC 3.26 L Hgb 10.2 L Hct 29.9 L RDW Plt Count 103 L Lymph % (Auto) 7.7 L [place] % (Auto) 7.5 H Lymph # 0.8 L Seg Neutrophils % 83.6 H Seg Neuts % (Manual) Lymphocytes % (Manual) Seg Neutrophils # 8.6 H Seg Neutrophils # Man Lymphocytes # (Manual) PT INR POC ABG pCO2 VBG pH Sodium 157 H Potassium 3.5 L Chloride 119.8 H Carbon Dioxide BUN 52 H Creatinine 1.9 H Glucose 244 H POC Glucose Lactic Acid Calcium 7.3 L Ionized Calcium Phosphorus Magnesium AST 88 H Total Creatine Kinase 1829 H C-Reactive Protein Total Protein 4.4 L D Albumin 2.3 L TSH Free T4 PTH Intact Urine WBC (Auto) Urine Creatinine Salicylates Acetaminophen 11/08/18 11/08/18 11/08/18 05:34 09:12 14:20 WBC RBC Hgb Hct RDW Plt Count Lymph % (Auto) [place] % (Auto) Lymph # Seg Neutrophils % Seg Neuts % (Manual) Lymphocytes % (Manual) Seg Neutrophils # Seg Neutrophils # Man Lymphocytes # (Manual) PT INR POC ABG pCO2 VBG pH Sodium Potassium Chloride Carbon Dioxide BUN Creatinine Glucose POC Glucose 250 H 299 H 379 H Lactic Acid Calcium Ionized Calcium Phosphorus Magnesium AST Total Creatine Kinase C-Reactive Protein Total Protein Albumin TSH Free T4 PTH Intact Urine WBC (Auto) Urine Creatinine Salicylates Acetaminophen 11/08/18 11/08/18 11/08/18 14:40 17:14 21:59 WBC RBC Hgb 10.2 L Hct 30.8 L RDW Plt Count Lymph % (Auto) [place] % (Auto) Lymph # Seg Neutrophils % Seg Neuts % (Manual) Lymphocytes % (Manual) Seg Neutrophils # Seg Neutrophils # Man Lymphocytes # (Manual) PT INR POC ABG pCO2 VBG pH Sodium Potassium Chloride Carbon Dioxide BUN Creatinine Glucose POC Glucose 356 H 385 H Lactic Acid Calcium Ionized Calcium Phosphorus Magnesium AST Total Creatine Kinase C-Reactive Protein Total Protein Albumin TSH Free T4 PTH Intact Urine WBC (Auto) Urine Creatinine Salicylates Acetaminophen 11/09/18 11/09/18 11/09/18 00:57 04:33 04:33 WBC RBC 3.20 L Hgb 9.7 L Hct 29.3 L RDW Plt Count 117 L Lymph % (Auto) 8.2 L [place] % (Auto) 7.4 H Lymph # 0.8 L Seg Neutrophils % 83.2 H Seg Neuts % (Manual) Lymphocytes % (Manual) Seg Neutrophils # Seg Neutrophils # Man Lymphocytes # (Manual) PT INR POC ABG pCO2 VBG pH Sodium 148 H D Potassium Chloride 113.2 H Carbon Dioxide BUN 37 H Creatinine Glucose 252 H POC Glucose 362 H Lactic Acid Calcium 7.8 L Ionized Calcium Phosphorus 1.90 L Magnesium AST 52 H Total Creatine Kinase C-Reactive Protein Total Protein 5.3 L D Albumin 1.6 L TSH Free T4 PTH Intact Urine WBC (Auto) Urine Creatinine Salicylates Acetaminophen 11/09/18 11/09/18 11/09/18 05:24 09:15 13:12 WBC RBC Hgb Hct RDW Plt Count Lymph % (Auto) [place] % (Auto) Lymph # Seg Neutrophils % Seg Neuts % (Manual) Lymphocytes % (Manual) Seg Neutrophils # Seg Neutrophils # Man Lymphocytes # (Manual) PT INR POC ABG pCO2 VBG pH Sodium Potassium Chloride Carbon Dioxide BUN Creatinine Glucose POC Glucose 304 H 297 H 300 H Lactic Acid Calcium Ionized Calcium Phosphorus Magnesium AST Total Creatine Kinase C-Reactive Protein Total Protein Albumin TSH Free T4 PTH Intact Urine WBC (Auto) Urine Creatinine Salicylates Acetaminophen 11/09/18 11/09/18 11/10/18 17:35 21:09 00:55 WBC RBC Hgb Hct RDW Plt Count Lymph % (Auto) [place] % (Auto) Lymph # Seg Neutrophils % Seg Neuts % (Manual) Lymphocytes % (Manual) Seg Neutrophils # Seg Neutrophils # Man Lymphocytes # (Manual) PT INR POC ABG pCO2 VBG pH Sodium Potassium Chloride Carbon Dioxide BUN Creatinine Glucose POC Glucose 262 H 213 H 283 H Lactic Acid Calcium Ionized Calcium Phosphorus Magnesium AST Total Creatine Kinase C-Reactive Protein Total Protein Albumin TSH Free T4 PTH Intact Urine WBC (Auto) Urine Creatinine Salicylates Acetaminophen 11/10/18 11/10/18 11/10/18 04:46 04:46 04:46 WBC RBC 3.17 L Hgb 9.6 L Hct 28.7 L RDW Plt Count Lymph % (Auto) 10.3 L [place] % (Auto) 10.0 H Lymph # 0.8 L Seg Neutrophils % 78.6 H Seg Neuts % (Manual) Lymphocytes % (Manual) Seg Neutrophils # Seg Neutrophils # Man Lymphocytes # (Manual) PT INR POC ABG pCO2 VBG pH Sodium 151 H Potassium 3.5 L Chloride 115.1 H Carbon Dioxide BUN 30 H Creatinine Glucose 183 H POC Glucose Lactic Acid Calcium 7.8 L Ionized Calcium Phosphorus Magnesium AST Total Creatine Kinase 408 H C-Reactive Protein Total Protein 5.7 L Albumin 1.8 L TSH Free T4 PTH Intact Urine WBC (Auto) Urine Creatinine Salicylates Acetaminophen 11/10/18 11/10/18 11/10/18 05:12 08:06 11:32 WBC RBC Hgb Hct RDW Plt Count Lymph % (Auto) [place] % (Auto) Lymph # Seg Neutrophils % Seg Neuts % (Manual) Lymphocytes % (Manual) Seg Neutrophils # Seg Neutrophils # Man Lymphocytes # (Manual) PT INR POC ABG pCO2 VBG pH Sodium Potassium Chloride Carbon Dioxide BUN Creatinine Glucose POC Glucose 201 H 195 H 302 H Lactic Acid Calcium Ionized Calcium Phosphorus Magnesium AST Total Creatine Kinase C-Reactive Protein Total Protein Albumin TSH Free T4 PTH Intact Urine WBC (Auto) Urine Creatinine Salicylates Acetaminophen 11/10/18 11/10/18 11/11/18 15:55 21:44 02:06 WBC RBC Hgb Hct RDW Plt Count Lymph % (Auto) [place] % (Auto) Lymph # Seg Neutrophils % Seg Neuts % (Manual) Lymphocytes % (Manual) Seg Neutrophils # Seg Neutrophils # Man Lymphocytes # (Manual) PT INR POC ABG pCO2 VBG pH Sodium Potassium Chloride Carbon Dioxide BUN Creatinine Glucose POC Glucose 292 H 348 H 370 H Lactic Acid Calcium Ionized Calcium Phosphorus Magnesium AST Total Creatine Kinase C-Reactive Protein Total Protein Albumin TSH Free T4 PTH Intact Urine WBC (Auto) Urine Creatinine Salicylates Acetaminophen 11/11/18 11/11/18 11/11/18 04:42 04:42 05:20 WBC RBC 3.13 L Hgb 9.5 L Hct 28.2 L RDW Plt Count Lymph % (Auto) Barton % (Auto) Lymph # Seg Neutrophils % Seg Neuts % (Manual) 91.0 H Lymphocytes % (Manual) 4.0 L Seg Neutrophils # Seg Neutrophils # Man 8.6 H Lymphocytes # (Manual) 0.4 L PT INR POC ABG pCO2 VBG pH Sodium Potassium Chloride 109.6 H Carbon Dioxide BUN 28 H Creatinine Glucose 263 H POC Glucose 272 H Lactic Acid Calcium 7.9 L Ionized Calcium Phosphorus Magnesium AST Total Creatine Kinase C-Reactive Protein Total Protein 5.6 L Albumin 1.6 L TSH Free T4 PTH Intact Urine WBC (Auto) Urine Creatinine Salicylates Acetaminophen 11/11/18 11/11/18 11/11/18 08:30 13:09 17:10 WBC RBC Hgb Hct RDW Plt Count Lymph % (Auto) Barton % (Auto) Lymph # Seg Neutrophils % Seg Neuts % (Manual) Lymphocytes % (Manual) Seg Neutrophils # Seg Neutrophils # Man Lymphocytes # (Manual) PT INR POC ABG pCO2 VBG pH Sodium Potassium Chloride Carbon Dioxide BUN Creatinine Glucose POC Glucose 290 H 340 H 276 H Lactic Acid Calcium Ionized Calcium Phosphorus Magnesium AST Total Creatine Kinase C-Reactive Protein Total Protein Albumin TSH Free T4 PTH Intact Urine WBC (Auto) Urine Creatinine Salicylates Acetaminophen 11/11/18 11/12/18 11/12/18 22:19 00:29 04:51 WBC RBC 3.22 L Hgb 9.7 L Hct 28.6 L RDW Plt Count 454 H Lymph % (Auto) 7.0 L Barton % (Auto) 7.5 H Lymph # 0.7 L Seg Neutrophils % 83.7 H Seg Neuts % (Manual) Lymphocytes % (Manual) Seg Neutrophils # 7.8 H Seg Neutrophils # Man Lymphocytes # (Manual) PT INR POC ABG pCO2 VBG pH Sodium Potassium Chloride Carbon Dioxide BUN Creatinine Glucose POC Glucose 284 H 262 H Lactic Acid Calcium Ionized Calcium Phosphorus Magnesium AST Total Creatine Kinase C-Reactive Protein Total Protein Albumin TSH Free T4 PTH Intact Urine WBC (Auto) Urine Creatinine Salicylates Acetaminophen 11/12/18 11/12/18 11/12/18 04:51 05:24 09:54 WBC RBC Hgb Hct RDW Plt Count Lymph % (Auto) Barton % (Auto) Lymph # Seg Neutrophils % Seg Neuts % (Manual) Lymphocytes % (Manual) Seg Neutrophils # Seg Neutrophils # Man Lymphocytes # (Manual) PT INR POC ABG pCO2 VBG pH Sodium Potassium Chloride 109.1 H Carbon Dioxide BUN 24 H Creatinine Glucose 334 H POC Glucose 335 H 288 H Lactic Acid Calcium 8.2 L Ionized Calcium Phosphorus Magnesium AST Total Creatine Kinase C-Reactive Protein Total Protein 5.5 L Albumin 1.8 L TSH Free T4 PTH Intact Urine WBC (Auto) Urine Creatinine Salicylates Acetaminophen 11/12/18 11/12/18 11/12/18 13:16 16:41 20:58 WBC RBC Hgb Hct RDW Plt Count Lymph % (Auto) Barton % (Auto) Lymph # Seg Neutrophils % Seg Neuts % (Manual) Lymphocytes % (Manual) Seg Neutrophils # Seg Neutrophils # Man Lymphocytes # (Manual) PT INR POC ABG pCO2 VBG pH Sodium Potassium Chloride Carbon Dioxide BUN Creatinine Glucose POC Glucose 245 H 343 H 403 H Lactic Acid Calcium Ionized Calcium Phosphorus Magnesium AST Total Creatine Kinase C-Reactive Protein Total Protein Albumin TSH Free T4 PTH Intact Urine WBC (Auto) Urine Creatinine Salicylates Acetaminophen 11/13/18 11/13/18 11/13/18 00:21 04:15 04:15 WBC RBC 3.15 L Hgb 9.6 L Hct 28.0 L RDW Plt Count 633 H Lymph % (Auto) 8.8 L Barton % (Auto) 7.6 H Lymph # 0.7 L Seg Neutrophils % 82.2 H Seg Neuts % (Manual) Lymphocytes % (Manual) Seg Neutrophils # Seg Neutrophils # Man Lymphocytes # (Manual) PT INR POC ABG pCO2 VBG pH Sodium 148 H Potassium Chloride 110.1 H Carbon Dioxide BUN 26 H Creatinine Glucose 337 H POC Glucose 391 H Lactic Acid Calcium 8.0 L Ionized Calcium Phosphorus Magnesium AST Total Creatine Kinase C-Reactive Protein Total Protein 5.7 L Albumin 1.8 L TSH Free T4 PTH Intact Urine WBC (Auto) Urine Creatinine Salicylates Acetaminophen 11/13/18 11/13/18 11/13/18 04:32 09:08 17:04 WBC RBC Hgb Hct RDW Plt Count Lymph % (Auto) Barton % (Auto) Lymph # Seg Neutrophils % Seg Neuts % (Manual) Lymphocytes % (Manual) Seg Neutrophils # Seg Neutrophils # Man Lymphocytes # (Manual) PT INR POC ABG pCO2 VBG pH Sodium Potassium Chloride Carbon Dioxide BUN Creatinine Glucose POC Glucose 350 H 285 H 345 H Lactic Acid Calcium Ionized Calcium Phosphorus Magnesium AST Total Creatine Kinase C-Reactive Protein Total Protein Albumin TSH Free T4 PTH Intact Urine WBC (Auto) Urine Creatinine Salicylates Acetaminophen 11/13/18 11/14/18 11/14/18 21:13 01:16 02:38 WBC RBC Hgb Hct RDW Plt Count Lymph % (Auto) [place] % (Auto) Lymph # Seg Neutrophils % Seg Neuts % (Manual) Lymphocytes % (Manual) Seg Neutrophils # Seg Neutrophils # Man Lymphocytes # (Manual) PT INR POC ABG pCO2 VBG pH Sodium 147 H Potassium 5.1 H D Chloride 107.3 H Carbon Dioxide BUN 27 H Creatinine 0.7 L Glucose 298 H POC Glucose 338 H 311 H Lactic Acid Calcium 7.7 L Ionized Calcium Phosphorus Magnesium AST Total Creatine Kinase C-Reactive Protein Total Protein Albumin TSH Free T4 PTH Intact Urine WBC (Auto) Urine Creatinine Salicylates Acetaminophen 11/14/18 11/14/18 11/14/18 05:22 09:09 14:21 WBC RBC Hgb Hct RDW Plt Count Lymph % (Auto) [place] % (Auto) Lymph # Seg Neutrophils % Seg Neuts % (Manual) Lymphocytes % (Manual) Seg Neutrophils # Seg Neutrophils # Man Lymphocytes # (Manual) PT INR POC ABG pCO2 VBG pH Sodium Potassium Chloride Carbon Dioxide BUN Creatinine Glucose POC Glucose 250 H 266 H 270 H Lactic Acid Calcium Ionized Calcium Phosphorus Magnesium AST Total Creatine Kinase C-Reactive Protein Total Protein Albumin TSH Free T4 PTH Intact Urine WBC (Auto) Urine Creatinine Salicylates Acetaminophen 11/14/18 11/14/18 11/15/18 17:06 21:08 01:16 WBC RBC Hgb Hct RDW Plt Count Lymph % (Auto) [place] % (Auto) Lymph # Seg Neutrophils % Seg Neuts % (Manual) Lymphocytes % (Manual) Seg Neutrophils # Seg Neutrophils # Man Lymphocytes # (Manual) PT INR POC ABG pCO2 VBG pH Sodium Potassium Chloride Carbon Dioxide BUN Creatinine Glucose POC Glucose 264 H 257 H 214 H Lactic Acid Calcium Ionized Calcium Phosphorus Magnesium AST Total Creatine Kinase C-Reactive Protein Total Protein Albumin TSH Free T4 PTH Intact Urine WBC (Auto) Urine Creatinine Salicylates Acetaminophen 11/15/18 11/15/18 11/15/18 03:58 03:58 05:01 WBC RBC 3.03 L Hgb 9.2 L Hct 26.8 L RDW 13.1 L Plt Count 831 H Lymph % (Auto) [place] % (Auto) 7.5 H Lymph # Seg Neutrophils % 75.0 H Seg Neuts % (Manual) Lymphocytes % (Manual) Seg Neutrophils # Seg Neutrophils # Man Lymphocytes # (Manual) PT INR POC ABG pCO2 VBG pH Sodium 148 H Potassium Chloride 108.5 H Carbon Dioxide 31 H BUN 22 H Creatinine 0.7 L Glucose 184 H POC Glucose 160 H Lactic Acid Calcium 8.3 L Ionized Calcium Phosphorus Magnesium AST Total Creatine Kinase C-Reactive Protein Total Protein 5.6 L Albumin 2.2 L TSH Free T4 PTH Intact Urine WBC (Auto) Urine Creatinine Salicylates Acetaminophen 11/15/18 11/15/18 11/15/18 09:12 14:47 16:38 WBC RBC Hgb Hct RDW Plt Count Lymph % (Auto) [place] % (Auto) Lymph # Seg Neutrophils % Seg Neuts % (Manual) Lymphocytes % (Manual) Seg Neutrophils # Seg Neutrophils # Man Lymphocytes # (Manual) PT INR POC ABG pCO2 VBG pH Sodium Potassium Chloride Carbon Dioxide BUN Creatinine Glucose POC Glucose 139 H 221 H 259 H Lactic Acid Calcium Ionized Calcium Phosphorus Magnesium AST Total Creatine Kinase C-Reactive Protein Total Protein Albumin TSH Free T4 PTH Intact Urine WBC (Auto) Urine Creatinine Salicylates Acetaminophen 11/15/18 11/16/18 11/16/18 21:17 00:53 04:41 WBC RBC Hgb Hct RDW Plt Count Lymph % (Auto) [place] % (Auto) Lymph # Seg Neutrophils % Seg Neuts % (Manual) Lymphocytes % (Manual) Seg Neutrophils # Seg Neutrophils # Man Lymphocytes # (Manual) PT INR POC ABG pCO2 VBG pH Sodium Potassium Chloride Carbon Dioxide 31 H BUN Creatinine 0.6 L Glucose 142 H POC Glucose 187 H 183 H Lactic Acid Calcium 8.1 L Ionized Calcium Phosphorus Magnesium AST Total Creatine Kinase C-Reactive Protein Total Protein 5.6 L Albumin 2.3 L TSH Free T4 PTH Intact Urine WBC (Auto) Urine Creatinine Salicylates Acetaminophen 11/16/18 11/16/18 11/16/18 04:46 10:01 13:09 WBC RBC Hgb Hct RDW Plt Count Lymph % (Auto) [place] % (Auto) Lymph # Seg Neutrophils % Seg Neuts % (Manual) Lymphocytes % (Manual) Seg Neutrophils # Seg Neutrophils # Man Lymphocytes # (Manual) PT INR POC ABG pCO2 VBG pH Sodium Potassium Chloride Carbon Dioxide BUN Creatinine Glucose POC Glucose 135 H 270 H 221 H Lactic Acid Calcium Ionized Calcium Phosphorus Magnesium AST Total Creatine Kinase C-Reactive Protein Total Protein Albumin TSH Free T4 PTH Intact Urine WBC (Auto) Urine Creatinine Salicylates Acetaminophen 11/16/18 11/16/18 11/17/18 17:06 21:54 01:52 WBC RBC Hgb Hct RDW Plt Count Lymph % (Auto) [place] % (Auto) Lymph # Seg Neutrophils % Seg Neuts % (Manual) Lymphocytes % (Manual) Seg Neutrophils # Seg Neutrophils # Man Lymphocytes # (Manual) PT INR POC ABG pCO2 VBG pH Sodium Potassium Chloride Carbon Dioxide BUN Creatinine Glucose POC Glucose 226 H 148 H 152 H Lactic Acid Calcium Ionized Calcium Phosphorus Magnesium AST Total Creatine Kinase C-Reactive Protein Total Protein Albumin TSH Free T4 PTH Intact Urine WBC (Auto) Urine Creatinine Salicylates Acetaminophen 11/17/18 11/17/18 11/17/18 04:48 05:31 07:48 WBC RBC Hgb Hct RDW Plt Count Lymph % (Auto) [place] % (Auto) Lymph # Seg Neutrophils % Seg Neuts % (Manual) Lymphocytes % (Manual) Seg Neutrophils # Seg Neutrophils # Man Lymphocytes # (Manual) PT INR POC ABG pCO2 VBG pH Sodium Potassium Chloride Carbon Dioxide BUN Creatinine 0.6 L Glucose 175 H POC Glucose 140 H 154 H Lactic Acid Calcium 8.0 L Ionized Calcium Phosphorus Magnesium AST Total Creatine Kinase C-Reactive Protein Total Protein 5.6 L Albumin 2.3 L TSH Free T4 PTH Intact Urine WBC (Auto) Urine Creatinine Salicylates Acetaminophen 11/17/18 11:30 WBC RBC Hgb Hct RDW Plt Count Lymph % (Auto) [place] % (Auto) Lymph # Seg Neutrophils % Seg Neuts % (Manual) Lymphocytes % (Manual) Seg Neutrophils # Seg Neutrophils # Man Lymphocytes # (Manual) PT INR POC ABG pCO2 VBG pH Sodium Potassium Chloride Carbon Dioxide BUN Creatinine Glucose POC Glucose 256 H Lactic Acid Calcium Ionized Calcium Phosphorus Magnesium AST Total Creatine Kinase C-Reactive Protein Total Protein Albumin TSH Free T4 PTH Intact Urine WBC (Auto) Urine Creatinine Salicylates Acetaminophen Allied health notes reviewed: nursing
[2018-11-17] MEDS: LANTUS SUB-Q SCH (22:59)
[2018-11-18] MEDS: HumaLOG SUB-Q SCH ×6 (03:33→21:30)
--- NOTE | 2018-11-18 09:59 | Progress Note ---
Assessment and Plan Acute hypoxemic respiratory failure, s/p supplemental oxygen. Severe sepsis with shock (unspecified) Diabetic ketoacidosis, resolved Acute kidney injury, resolved Rhabdomyolysis. Acute encephalopathy,much improved Hyperkalemia, resolved. Possible urinary tract infection. Severe metabolic acidosis, resolved. Leukocytosis, resolved - wean supplemental oxygen for O2 sat's > 90% - antibiotics per ID - avoid nephrotoxins , dose all medicationsfor GFR/CrCL - wound care per WCT - continue VTE prophylaxis -continue PT/OT, increase activity -Supportive care -Discharge planning Subjective Date of service: 11/18/18 Principal diagnosis: Ac hypoxemic resp failure; Severe sepsis; DKA; JAVY; Ac encephalopathy; UTI Interval history: Patient is seen today for: Acute hypoxemic respiratory failure; Severe sepsis with shock; Diabetic ketoacidosis; Acute kidney injury; Rhabdomyolysis; Acute encephalopathy, likely toxic metabolic; Hyperkalemia; Possible urinary tract infection; Severe metabolic acidosis; Possible hypothyroidism; Leukocytosis Seen and examined at bedside; 24hour events reviewed; nursing and respiratory care staff consulted; no adverse overnight events reported to me; resting pea cefully in bed; no over night fever, no vomiting, no diarrhea. Vitals, labs, medications, chart reviewed Objective Vital Signs - 12hr 11/17/18 11/17/18 11/18/18 22:36 23:51 06:14 Temperature 99.1 F 98.8 F Pulse Rate 104 H 95 H 94 H Respiratory 20 18 18 Rate Blood Pressure 113/71 114/71 O2 Sat by Pulse 98 94 97 Oximetry 11/18/18 08:31 Temperature Pulse Rate Respiratory Rate Blood Pressure O2 Sat by Pulse 94 Oximetry Constitutional: alert, other (middle aged normocephalic and atraumatic AAM) Eyes: non-icteric ENT: oropharynx moist, other (mallampati 2) Neck: supple, no lymphadenopathy, no JVD Effort: normal Ascultation: Bilateral: clear, diminished breath sounds, rhonchi Percussion: Bilateral: not dull Cardiovascular: regular rate and rhythm Gastrointestinal: normoactive bowel sounds, soft, non-tender, non-distended Integumentary: normal Extremities: no cyanosis, no edema, pulses normal, no ischemia or petechiae Neurologic: non-focal exam, pupils equal and round, CN II-XII normal, other (weak, deconditioned) Psychiatric: mood appropriate, affect normal CBC and BMP: 11/15/18 03:58 11/19/18 08:02 ABG, PT/INR, D-dimer: ABG POC ABG pH 7.432 (7.35-7.45) 11/05/18 17:08 POC ABG pCO2 32.3 (35-45) L 11/05/18 17:08 POC ABG HCO3 21.5 (22-26 mml/L) 11/05/18 17:08 POC ABG Total CO2 23 (23-27mmol/L) 11/05/18 17:08 POC ABG O2 Sat 85 11/05/18 17:08 PT/INR, D-dimer PT 15.6 Sec. (12.2-14.9) H 11/04/18 16:05 INR 1.27 (0.87-1.13) H 11/04/18 16:05 Abnormal lab findings: Abnormal Labs 11/04/18 11/04/18 11/04/18 15:23 15:35 16:05 WBC 12.6 H RBC Hgb Hct RDW Plt Count Lymph % (Auto) [place] % (Auto) Lymph # Seg Neutrophils % Seg Neuts % (Manual) 84.0 H Lymphocytes % (Manual) 1.0 L Seg Neutrophils # Seg Neutrophils # Man 10.6 H Lymphocytes # (Manual) 0.1 L PT INR POC ABG pCO2 VBG pH Sodium Potassium Chloride Carbon Dioxide BUN Creatinine Glucose POC Glucose > 500 H Lactic Acid Calcium Ionized Calcium Phosphorus Magnesium AST Total Creatine Kinase C-Reactive Protein Total Protein Albumin TSH Free T4 PTH Intact Urine WBC (Auto) 12.0 H Urine Creatinine Salicylates Acetaminophen 11/04/18 11/04/18 11/04/18 16:05 16:05 16:05 WBC RBC Hgb Hct RDW Plt Count Lymph % (Auto) [place] % (Auto) Lymph # Seg Neutrophils % Seg Neuts % (Manual) Lymphocytes % (Manual) Seg Neutrophils # Seg Neutrophils # Man Lymphocytes # (Manual) PT 15.6 H INR 1.27 H POC ABG pCO2 VBG pH Sodium 153 H Potassium 6.2 H* Chloride Carbon Dioxide 18 L BUN 200 H Creatinine 6.8 H Glucose 1088 H* POC Glucose Lactic Acid 2.80 H* Calcium 7.2 L Ionized Calcium Phosphorus Magnesium AST Total Creatine Kinase C-Reactive Protein Total Protein Albumin 3.1 L TSH Free T4 PTH Intact Urine WBC (Auto) Urine Creatinine Salicylates Acetaminophen 11/04/18 11/04/18 11/04/18 16:05 16:05 16:05 WBC RBC Hgb Hct RDW Plt Count Lymph % (Auto) [place] % (Auto) Lymph # Seg Neutrophils % Seg Neuts % (Manual) Lymphocytes % (Manual) Seg Neutrophils # Seg Neutrophils # Man Lymphocytes # (Manual) PT INR POC ABG pCO2 VBG pH 7.245 L Sodium Potassium Chloride Carbon Dioxide BUN Creatinine Glucose POC Glucose Lactic Acid Calcium Ionized Calcium Phosphorus 13.80 H Magnesium 3.60 H AST Total Creatine Kinase C-Reactive Protein Total Protein Albumin TSH 0.169 L Free T4 0.68 L PTH Intact Urine WBC (Auto) Urine Creatinine Salicylates Acetaminophen 11/04/18 11/04/18 11/04/18 16:05 16:48 19:40 WBC RBC Hgb Hct RDW Plt Count Lymph % (Auto) [place] % (Auto) Lymph # Seg Neutrophils % Seg Neuts % (Manual) Lymphocytes % (Manual) Seg Neutrophils # Seg Neutrophils # Man Lymphocytes # (Manual) PT INR POC ABG pCO2 VBG pH Sodium Potassium Chloride Carbon Dioxide BUN Creatinine Glucose POC Glucose > 500 H 458 H Lactic Acid Calcium Ionized Calcium Phosphorus Magnesium AST Total Creatine Kinase 1857 H C-Reactive Protein Total Protein Albumin TSH Free T4 PTH Intact Urine WBC (Auto) Urine Creatinine Salicylates Acetaminophen 11/04/18 11/04/18 11/04/18 20:29 20:29 20:29 WBC RBC Hgb Hct RDW Plt Count Lymph % (Auto) [place] % (Auto) Lymph # Seg Neutrophils % Seg Neuts % (Manual) Lymphocytes % (Manual) Seg Neutrophils # Seg Neutrophils # Man Lymphocytes # (Manual) PT INR POC ABG pCO2 VBG pH Sodium 163 H* D Potassium Chloride 121.4 H Carbon Dioxide 21 L BUN 166 H Creatinine 5.6 H Glucose 513 H* POC Glucose Lactic Acid 3.30 H* 3.30 H* Calcium 6.4 L Ionized Calcium Phosphorus Magnesium AST Total Creatine Kinase C-Reactive Protein Total Protein Albumin TSH Free T4 PTH Intact Urine WBC (Auto) Urine Creatinine Salicylates Acetaminophen 11/04/18 11/04/18 11/04/18 20:55 21:03 22:00 WBC RBC Hgb Hct RDW Plt Count Lymph % (Auto) [place] % (Auto) Lymph # Seg Neutrophils % Seg Neuts % (Manual) Lymphocytes % (Manual) Seg Neutrophils # Seg Neutrophils # Man Lymphocytes # (Manual) PT INR POC ABG pCO2 VBG pH Sodium Potassium Chloride Carbon Dioxide BUN Creatinine Glucose POC Glucose 496 H Lactic Acid 3.60 H* Calcium Ionized Calcium Phosphorus Magnesium AST Total Creatine Kinase C-Reactive Protein Total Protein Albumin TSH Free T4 PTH Intact Urine WBC (Auto) Urine Creatinine 58.1 H Salicylates Acetaminophen 11/04/18 11/04/18 11/04/18 22:04 23:07 23:47 WBC RBC Hgb Hct RDW Plt Count Lymph % (Auto) [place] % (Auto) Lymph # Seg Neutrophils % Seg Neuts % (Manual) Lymphocytes % (Manual) Seg Neutrophils # Seg Neutrophils # Man Lymphocytes # (Manual) PT INR POC ABG pCO2 VBG pH Sodium 170 H* Potassium Chloride 127.1 H Carbon Dioxide BUN 164 H Creatinine 5.2 H Glucose 213 H POC Glucose 357 H 306 H Lactic Acid Calcium 6.5 L Ionized Calcium Phosphorus Magnesium AST Total Creatine Kinase C-Reactive Protein Total Protein Albumin TSH Free T4 PTH Intact Urine WBC (Auto) Urine Creatinine Salicylates Acetaminophen 11/04/18 11/05/18 11/05/18 23:47 00:04 00:09 WBC RBC Hgb Hct RDW Plt Count Lymph % (Auto) [place] % (Auto) Lymph # Seg Neutrophils % Seg Neuts % (Manual) Lymphocytes % (Manual) Seg Neutrophils # Seg Neutrophils # Man Lymphocytes # (Manual) PT INR POC ABG pCO2 VBG pH Sodium 163 H* Potassium Chloride 127.5 H Carbon Dioxide BUN 117 H Creatinine 3.3 H Glucose 235 H POC Glucose 219 H Lactic Acid 3.20 H* Calcium 6.8 L Ionized Calcium Phosphorus Magnesium AST Total Creatine Kinase C-Reactive Protein Total Protein Albumin TSH Free T4 PTH Intact Urine WBC (Auto) Urine Creatinine Salicylates Acetaminophen 11/05/18 11/05/18 11/05/18 00:59 03:13 03:52 WBC RBC Hgb Hct RDW Plt Count Lymph % (Auto) [place] % (Auto) Lymph # Seg Neutrophils % Seg Neuts % (Manual) Lymphocytes % (Manual) Seg Neutrophils # Seg Neutrophils # Man Lymphocytes # (Manual) PT INR POC ABG pCO2 VBG pH Sodium Potassium Chloride Carbon Dioxide BUN Creatinine Glucose POC Glucose 204 H 124 H Lactic Acid Calcium Ionized Calcium Phosphorus Magnesium AST Total Creatine Kinase 1680 H C-Reactive Protein Total Protein Albumin TSH Free T4 PTH Intact Urine WBC (Auto) Urine Creatinine Salicylates Acetaminophen 11/05/18 11/05/18 11/05/18 03:52 04:25 05:11 WBC RBC Hgb Hct RDW Plt Count Lymph % (Auto) [place] % (Auto) Lymph # Seg Neutrophils % Seg Neuts % (Manual) Lymphocytes % (Manual) Seg Neutrophils # Seg Neutrophils # Man Lymphocytes # (Manual) PT INR POC ABG pCO2 VBG pH Sodium 169 H* Potassium Chloride 126.2 H Carbon Dioxide BUN 156 H Creatinine 4.7 H Glucose 128 H POC Glucose 150 H 173 H Lactic Acid Calcium 6.3 L Ionized Calcium Phosphorus Magnesium AST Total Creatine Kinase C-Reactive Protein Total Protein Albumin TSH Free T4 PTH Intact Urine WBC (Auto) Urine Creatinine Salicylates Acetaminophen 11/05/18 11/05/18 11/05/18 06:05 06:58 07:48 WBC RBC Hgb Hct RDW Plt Count Lymph % (Auto) [place] % (Auto) Lymph # Seg Neutrophils % Seg Neuts % (Manual) Lymphocytes % (Manual) Seg Neutrophils # Seg Neutrophils # Man Lymphocytes # (Manual) PT INR POC ABG pCO2 VBG pH Sodium Potassium Chloride Carbon Dioxide BUN Creatinine Glucose POC Glucose 136 H 152 H 177 H Lactic Acid Calcium Ionized Calcium Phosphorus Magnesium AST Total Creatine Kinase C-Reactive Protein Total Protein Albumin TSH Free T4 PTH Intact Urine WBC (Auto) Urine Creatinine Salicylates Acetaminophen 11/05/18 11/05/18 11/05/18 08:21 08:21 08:23 WBC RBC Hgb Hct RDW Plt Count Lymph % (Auto) [place] % (Auto) Lymph # Seg Neutrophils % Seg Neuts % (Manual) Lymphocytes % (Manual) Seg Neutrophils # Seg Neutrophils # Man Lymphocytes # (Manual) PT INR POC ABG pCO2 VBG pH Sodium 171 H* Potassium Chloride 128.9 H Carbon Dioxide BUN 149 H Creatinine 4.5 H Glucose 159 H POC Glucose 157 H Lactic Acid Calcium 6.7 L Ionized Calcium Phosphorus Magnesium AST Total Creatine Kinase C-Reactive Protein Total Protein Albumin TSH Free T4 PTH Intact 119.3 H Urine WBC (Auto) Urine Creatinine Salicylates Acetaminophen 11/05/18 11/05/18 11/05/18 10:21 11:12 12:37 WBC RBC Hgb Hct RDW Plt Count Lymph % (Auto) [place] % (Auto) Lymph # Seg Neutrophils % Seg Neuts % (Manual) Lymphocytes % (Manual) Seg Neutrophils # Seg Neutrophils # Man Lymphocytes # (Manual) PT INR POC ABG pCO2 VBG pH Sodium Potassium Chloride Carbon Dioxide BUN Creatinine Glucose POC Glucose 171 H 155 H 145 H Lactic Acid Calcium Ionized Calcium Phosphorus Magnesium AST Total Creatine Kinase C-Reactive Protein Total Protein Albumin TSH Free T4 PTH Intact Urine WBC (Auto) Urine Creatinine Salicylates Acetaminophen 11/05/18 11/05/18 11/05/18 13:24 13:47 14:42 WBC RBC Hgb Hct RDW Plt Count Lymph % (Auto) [place] % (Auto) Lymph # Seg Neutrophils % Seg Neuts % (Manual) Lymphocytes % (Manual) Seg Neutrophils # Seg Neutrophils # Man Lymphocytes # (Manual) PT INR POC ABG pCO2 VBG pH Sodium 167 H* Potassium Chloride 131.6 H Carbon Dioxide BUN 130 H Creatinine 3.8 H Glucose 136 H POC Glucose 137 H 133 H Lactic Acid Calcium 6.4 L Ionized Calcium Phosphorus Magnesium AST Total Creatine Kinase C-Reactive Protein Total Protein Albumin TSH Free T4 PTH Intact Urine WBC (Auto) Urine Creatinine Salicylates Acetaminophen 11/05/18 11/05/18 11/05/18 16:55 17:08 18:14 WBC RBC Hgb Hct RDW Plt Count Lymph % (Auto) [place] % (Auto) Lymph # Seg Neutrophils % Seg Neuts % (Manual) Lymphocytes % (Manual) Seg Neutrophils # Seg Neutrophils # Man Lymphocytes # (Manual) PT INR POC ABG pCO2 32.3 L VBG pH Sodium Potassium Chloride Carbon Dioxide BUN Creatinine Glucose POC Glucose 194 H 195 H Lactic Acid Calcium Ionized Calcium Phosphorus Magnesium AST Total Creatine Kinase C-Reactive Protein Total Protein Albumin TSH Free T4 PTH Intact Urine WBC (Auto) Urine Creatinine Salicylates Acetaminophen 11/05/18 11/05/18 11/05/18 18:35 18:35 18:35 WBC RBC Hgb Hct RDW Plt Count Lymph % (Auto) [place] % (Auto) Lymph # Seg Neutrophils % Seg Neuts % (Manual) Lymphocytes % (Manual) Seg Neutrophils # Seg Neutrophils # Man Lymphocytes # (Manual) PT INR POC ABG pCO2 VBG pH Sodium Potassium Chloride Carbon Dioxide BUN Creatinine Glucose POC Glucose Lactic Acid Calcium Ionized Calcium Phosphorus Magnesium AST Total Creatine Kinase C-Reactive Protein 19.50 H Total Protein Albumin TSH Free T4 PTH Intact Urine WBC (Auto) Urine Creatinine Salicylates < 0.3 L Acetaminophen < 5.0 L 11/05/18 11/06/18 11/06/18 21:09 01:36 04:50 WBC RBC Hgb 11.3 L Hct 32.8 L D RDW Plt Count 110 L Lymph % (Auto) [place] % (Auto) Lymph # Seg Neutrophils % Seg Neuts % (Manual) Lymphocytes % (Manual) Seg Neutrophils # Seg Neutrophils # Man Lymphocytes # (Manual) PT INR POC ABG pCO2 VBG pH Sodium Potassium Chloride Carbon Dioxide BUN Creatinine Glucose POC Glucose 250 H 289 H Lactic Acid Calcium Ionized Calcium Phosphorus Magnesium AST Total Creatine Kinase C-Reactive Protein Total Protein Albumin TSH Free T4 PTH Intact Urine WBC (Auto) Urine Creatinine Salicylates Acetaminophen 11/06/18 11/06/18 11/06/18 04:50 04:50 05:14 WBC RBC Hgb Hct RDW Plt Count Lymph % (Auto) [place] % (Auto) Lymph # Seg Neutrophils % Seg Neuts % (Manual) Lymphocytes % (Manual) Seg Neutrophils # Seg Neutrophils # Man Lymphocytes # (Manual) PT INR POC ABG pCO2 VBG pH Sodium 165 H* 164 H* Potassium Chloride 127.4 H Carbon Dioxide BUN 113 H Creatinine 3.2 H Glucose 208 H POC Glucose 215 H Lactic Acid Calcium 6.8 L Ionized Calcium Phosphorus Magnesium AST 55 H Total Creatine Kinase C-Reactive Protein Total Protein 5.2 L D Albumin 2.3 L TSH Free T4 PTH Intact Urine WBC (Auto) Urine Creatinine Salicylates Acetaminophen 11/06/18 11/06/18 11/06/18 07:50 08:50 12:16 WBC RBC Hgb Hct RDW Plt Count Lymph % (Auto) [place] % (Auto) Lymph # Seg Neutrophils % Seg Neuts % (Manual) Lymphocytes % (Manual) Seg Neutrophils # Seg Neutrophils # Man Lymphocytes # (Manual) PT INR POC ABG pCO2 VBG pH Sodium 161 H* Potassium Chloride 126.0 H Carbon Dioxide BUN 111 H Creatinine 3.0 H Glucose 187 H POC Glucose 239 H 198 H Lactic Acid Calcium 7.0 L Ionized Calcium Phosphorus Magnesium AST Total Creatine Kinase C-Reactive Protein Total Protein Albumin TSH Free T4 PTH Intact Urine WBC (Auto) Urine Creatinine Salicylates Acetaminophen 11/06/18 11/06/18 11/06/18 15:42 15:42 17:59 WBC RBC Hgb Hct RDW Plt Count Lymph % (Auto) [place] % (Auto) Lymph # Seg Neutrophils % Seg Neuts % (Manual) Lymphocytes % (Manual) Seg Neutrophils # Seg Neutrophils # Man Lymphocytes # (Manual) PT INR POC ABG pCO2 VBG pH Sodium 162 H* Potassium Chloride 127.3 H Carbon Dioxide BUN 98 H Creatinine 2.7 H Glucose 195 H POC Glucose 225 H Lactic Acid Calcium 7.1 L Ionized Calcium 4.4 L Phosphorus Magnesium AST Total Creatine Kinase C-Reactive Protein Total Protein Albumin TSH Free T4 PTH Intact Urine WBC (Auto) Urine Creatinine Salicylates Acetaminophen 11/06/18 11/06/18 11/06/18 21:21 21:24 21:24 WBC RBC Hgb 11.0 L Hct 33.4 L RDW Plt Count Lymph % (Auto) [place] % (Auto) Lymph # Seg Neutrophils % Seg Neuts % (Manual) Lymphocytes % (Manual) Seg Neutrophils # Seg Neutrophils # Man Lymphocytes # (Manual) PT INR POC ABG pCO2 VBG pH Sodium Potassium Chloride Carbon Dioxide BUN Creatinine Glucose POC Glucose 272 H Lactic Acid Calcium Ionized Calcium Phosphorus Magnesium AST Total Creatine Kinase 3538 H C-Reactive Protein Total Protein Albumin TSH Free T4 PTH Intact Urine WBC (Auto) Urine Creatinine Salicylates Acetaminophen 11/07/18 11/07/18 11/07/18 02:01 04:13 04:13 WBC RBC Hgb 11.4 L Hct 33.8 L RDW Plt Count 103 L Lymph % (Auto) [place] % (Auto) Lymph # Seg Neutrophils % Seg Neuts % (Manual) 83.0 H Lymphocytes % (Manual) 6.0 L Seg Neutrophils # Seg Neutrophils # Man Lymphocytes # (Manual) 0.6 L PT INR POC ABG pCO2 VBG pH Sodium 161 H* Potassium Chloride 125.8 H Carbon Dioxide BUN 80 H Creatinine 2.4 H Glucose 246 H POC Glucose 282 H Lactic Acid Calcium 7.4 L Ionized Calcium Phosphorus Magnesium 2.50 H AST 106 H Total Creatine Kinase C-Reactive Protein Total Protein 5.7 L Albumin 2.0 L TSH Free T4 PTH Intact Urine WBC (Auto) Urine Creatinine Salicylates Acetaminophen 11/07/18 11/07/18 11/07/18 04:13 05:17 09:15 WBC RBC Hgb Hct RDW Plt Count Lymph % (Auto) [place] % (Auto) Lymph # Seg Neutrophils % Seg Neuts % (Manual) Lymphocytes % (Manual) Seg Neutrophils # Seg Neutrophils # Man Lymphocytes # (Manual) PT INR POC ABG pCO2 VBG pH Sodium Potassium Chloride Carbon Dioxide BUN Creatinine Glucose POC Glucose 256 H 287 H Lactic Acid Calcium Ionized Calcium Phosphorus Magnesium AST Total Creatine Kinase 2918 H C-Reactive Protein Total Protein Albumin TSH Free T4 PTH Intact Urine WBC (Auto) Urine Creatinine Salicylates Acetaminophen 11/07/18 11/07/18 11/07/18 13:27 15:10 16:38 WBC RBC Hgb 10.2 L Hct 31.2 L RDW Plt Count Lymph % (Auto) [place] % (Auto) Lymph # Seg Neutrophils % Seg Neuts % (Manual) Lymphocytes % (Manual) Seg Neutrophils # Seg Neutrophils # Man Lymphocytes # (Manual) PT INR POC ABG pCO2 VBG pH Sodium Potassium Chloride Carbon Dioxide BUN Creatinine Glucose POC Glucose 281 H 284 H Lactic Acid Calcium Ionized Calcium Phosphorus Magnesium AST Total Creatine Kinase C-Reactive Protein Total Protein Albumin TSH Free T4 PTH Intact Urine WBC (Auto) Urine Creatinine Salicylates Acetaminophen 11/07/18 11/07/18 11/08/18 21:08 21:41 01:24 WBC RBC Hgb 10.2 L Hct 30.8 L RDW Plt Count Lymph % (Auto) [place] % (Auto) Lymph # Seg Neutrophils % Seg Neuts % (Manual) Lymphocytes % (Manual) Seg Neutrophils # Seg Neutrophils # Man Lymphocytes # (Manual) PT INR POC ABG pCO2 VBG pH Sodium Potassium Chloride Carbon Dioxide BUN Creatinine Glucose POC Glucose 349 H 363 H Lactic Acid Calcium Ionized Calcium Phosphorus Magnesium AST Total Creatine Kinase C-Reactive Protein Total Protein Albumin TSH Free T4 PTH Intact Urine WBC (Auto) Urine Creatinine Salicylates Acetaminophen 11/08/18 11/08/18 11/08/18 04:30 04:30 04:30 WBC RBC 3.26 L Hgb 10.2 L Hct 29.9 L RDW Plt Count 103 L Lymph % (Auto) 7.7 L [place] % (Auto) 7.5 H Lymph # 0.8 L Seg Neutrophils % 83.6 H Seg Neuts % (Manual) Lymphocytes % (Manual) Seg Neutrophils # 8.6 H Seg Neutrophils # Man Lymphocytes # (Manual) PT INR POC ABG pCO2 VBG pH Sodium 157 H Potassium 3.5 L Chloride 119.8 H Carbon Dioxide BUN 52 H Creatinine 1.9 H Glucose 244 H POC Glucose Lactic Acid Calcium 7.3 L Ionized Calcium Phosphorus Magnesium AST 88 H Total Creatine Kinase 1829 H C-Reactive Protein Total Protein 4.4 L D Albumin 2.3 L TSH Free T4 PTH Intact Urine WBC (Auto) Urine Creatinine Salicylates Acetaminophen 11/08/18 11/08/18 11/08/18 05:34 09:12 14:20 WBC RBC Hgb Hct RDW Plt Count Lymph % (Auto) [place] % (Auto) Lymph # Seg Neutrophils % Seg Neuts % (Manual) Lymphocytes % (Manual) Seg Neutrophils # Seg Neutrophils # Man Lymphocytes # (Manual) PT INR POC ABG pCO2 VBG pH Sodium Potassium Chloride Carbon Dioxide BUN Creatinine Glucose POC Glucose 250 H 299 H 379 H Lactic Acid Calcium Ionized Calcium Phosphorus Magnesium AST Total Creatine Kinase C-Reactive Protein Total Protein Albumin TSH Free T4 PTH Intact Urine WBC (Auto) Urine Creatinine Salicylates Acetaminophen 11/08/18 11/08/18 11/08/18 14:40 17:14 21:59 WBC RBC Hgb 10.2 L Hct 30.8 L RDW Plt Count Lymph % (Auto) [place] % (Auto) Lymph # Seg Neutrophils % Seg Neuts % (Manual) Lymphocytes % (Manual) Seg Neutrophils # Seg Neutrophils # Man Lymphocytes # (Manual) PT INR POC ABG pCO2 VBG pH Sodium Potassium Chloride Carbon Dioxide BUN Creatinine Glucose POC Glucose 356 H 385 H Lactic Acid Calcium Ionized Calcium Phosphorus Magnesium AST Total Creatine Kinase C-Reactive Protein Total Protein Albumin TSH Free T4 PTH Intact Urine WBC (Auto) Urine Creatinine Salicylates Acetaminophen 11/09/18 11/09/18 11/09/18 00:57 04:33 04:33 WBC RBC 3.20 L Hgb 9.7 L Hct 29.3 L RDW Plt Count 117 L Lymph % (Auto) 8.2 L [place] % (Auto) 7.4 H Lymph # 0.8 L Seg Neutrophils % 83.2 H Seg Neuts % (Manual) Lymphocytes % (Manual) Seg Neutrophils # Seg Neutrophils # Man Lymphocytes # (Manual) PT INR POC ABG pCO2 VBG pH Sodium 148 H D Potassium Chloride 113.2 H Carbon Dioxide BUN 37 H Creatinine Glucose 252 H POC Glucose 362 H Lactic Acid Calcium 7.8 L Ionized Calcium Phosphorus 1.90 L Magnesium AST 52 H Total Creatine Kinase C-Reactive Protein Total Protein 5.3 L D Albumin 1.6 L TSH Free T4 PTH Intact Urine WBC (Auto) Urine Creatinine Salicylates Acetaminophen 11/09/18 11/09/18 11/09/18 05:24 09:15 13:12 WBC RBC Hgb Hct RDW Plt Count Lymph % (Auto) [place] % (Auto) Lymph # Seg Neutrophils % Seg Neuts % (Manual) Lymphocytes % (Manual) Seg Neutrophils # Seg Neutrophils # Man Lymphocytes # (Manual) PT INR POC ABG pCO2 VBG pH Sodium Potassium Chloride Carbon Dioxide BUN Creatinine Glucose POC Glucose 304 H 297 H 300 H Lactic Acid Calcium Ionized Calcium Phosphorus Magnesium AST Total Creatine Kinase C-Reactive Protein Total Protein Albumin TSH Free T4 PTH Intact Urine WBC (Auto) Urine Creatinine Salicylates Acetaminophen 11/09/18 11/09/18 11/10/18 17:35 21:09 00:55 WBC RBC Hgb Hct RDW Plt Count Lymph % (Auto) [place] % (Auto) Lymph # Seg Neutrophils % Seg Neuts % (Manual) Lymphocytes % (Manual) Seg Neutrophils # Seg Neutrophils # Man Lymphocytes # (Manual) PT INR POC ABG pCO2 VBG pH Sodium Potassium Chloride Carbon Dioxide BUN Creatinine Glucose POC Glucose 262 H 213 H 283 H Lactic Acid Calcium Ionized Calcium Phosphorus Magnesium AST Total Creatine Kinase C-Reactive Protein Total Protein Albumin TSH Free T4 PTH Intact Urine WBC (Auto) Urine Creatinine Salicylates Acetaminophen 11/10/18 11/10/18 11/10/18 04:46 04:46 04:46 WBC RBC 3.17 L Hgb 9.6 L Hct 28.7 L RDW Plt Count Lymph % (Auto) 10.3 L [place] % (Auto) 10.0 H Lymph # 0.8 L Seg Neutrophils % 78.6 H Seg Neuts % (Manual) Lymphocytes % (Manual) Seg Neutrophils # Seg Neutrophils # Man Lymphocytes # (Manual) PT INR POC ABG pCO2 VBG pH Sodium 151 H Potassium 3.5 L Chloride 115.1 H Carbon Dioxide BUN 30 H Creatinine Glucose 183 H POC Glucose Lactic Acid Calcium 7.8 L Ionized Calcium Phosphorus Magnesium AST Total Creatine Kinase 408 H C-Reactive Protein Total Protein 5.7 L Albumin 1.8 L TSH Free T4 PTH Intact Urine WBC (Auto) Urine Creatinine Salicylates Acetaminophen 11/10/18 11/10/18 11/10/18 05:12 08:06 11:32 WBC RBC Hgb Hct RDW Plt Count Lymph % (Auto) [place] % (Auto) Lymph # Seg Neutrophils % Seg Neuts % (Manual) Lymphocytes % (Manual) Seg Neutrophils # Seg Neutrophils # Man Lymphocytes # (Manual) PT INR POC ABG pCO2 VBG pH Sodium Potassium Chloride Carbon Dioxide BUN Creatinine Glucose POC Glucose 201 H 195 H 302 H Lactic Acid Calcium Ionized Calcium Phosphorus Magnesium AST Total Creatine Kinase C-Reactive Protein Total Protein Albumin TSH Free T4 PTH Intact Urine WBC (Auto) Urine Creatinine Salicylates Acetaminophen 11/10/18 11/10/18 11/11/18 15:55 21:44 02:06 WBC RBC Hgb Hct RDW Plt Count Lymph % (Auto) [place] % (Auto) Lymph # Seg Neutrophils % Seg Neuts % (Manual) Lymphocytes % (Manual) Seg Neutrophils # Seg Neutrophils # Man Lymphocytes # (Manual) PT INR POC ABG pCO2 VBG pH Sodium Potassium Chloride Carbon Dioxide BUN Creatinine Glucose POC Glucose 292 H 348 H 370 H Lactic Acid Calcium Ionized Calcium Phosphorus Magnesium AST Total Creatine Kinase C-Reactive Protein Total Protein Albumin TSH Free T4 PTH Intact Urine WBC (Auto) Urine Creatinine Salicylates Acetaminophen 11/11/18 11/11/18 11/11/18 04:42 04:42 05:20 WBC RBC 3.13 L Hgb 9.5 L Hct 28.2 L RDW Plt Count Lymph % (Auto) [place] % (Auto) Lymph # Seg Neutrophils % Seg Neuts % (Manual) 91.0 H Lymphocytes % (Manual) 4.0 L Seg Neutrophils # Seg Neutrophils # Man 8.6 H Lymphocytes # (Manual) 0.4 L PT INR POC ABG pCO2 VBG pH Sodium Potassium Chloride 109.6 H Carbon Dioxide BUN 28 H Creatinine Glucose 263 H POC Glucose 272 H Lactic Acid Calcium 7.9 L Ionized Calcium Phosphorus Magnesium AST Total Creatine Kinase C-Reactive Protein Total Protein 5.6 L Albumin 1.6 L TSH Free T4 PTH Intact Urine WBC (Auto) Urine Creatinine Salicylates Acetaminophen 11/11/18 11/11/18 11/11/18 08:30 13:09 17:10 WBC RBC Hgb Hct RDW Plt Count Lymph % (Auto) [place] % (Auto) Lymph # Seg Neutrophils % Seg Neuts % (Manual) Lymphocytes % (Manual) Seg Neutrophils # Seg Neutrophils # Man Lymphocytes # (Manual) PT INR POC ABG pCO2 VBG pH Sodium Potassium Chloride Carbon Dioxide BUN Creatinine Glucose POC Glucose 290 H 340 H 276 H Lactic Acid Calcium Ionized Calcium Phosphorus Magnesium AST Total Creatine Kinase C-Reactive Protein Total Protein Albumin TSH Free T4 PTH Intact Urine WBC (Auto) Urine Creatinine Salicylates Acetaminophen 11/11/18 11/12/18 11/12/18 22:19 00:29 04:51 WBC RBC 3.22 L Hgb 9.7 L Hct 28.6 L RDW Plt Count 454 H Lymph % (Auto) 7.0 L [place] % (Auto) 7.5 H Lymph # 0.7 L Seg Neutrophils % 83.7 H Seg Neuts % (Manual) Lymphocytes % (Manual) Seg Neutrophils # 7.8 H Seg Neutrophils # Man Lymphocytes # (Manual) PT INR POC ABG pCO2 VBG pH Sodium Potassium Chloride Carbon Dioxide BUN Creatinine Glucose POC Glucose 284 H 262 H Lactic Acid Calcium Ionized Calcium Phosphorus Magnesium AST Total Creatine Kinase C-Reactive Protein Total Protein Albumin TSH Free T4 PTH Intact Urine WBC (Auto) Urine Creatinine Salicylates Acetaminophen 11/12/18 11/12/18 11/12/18 04:51 05:24 09:54 WBC RBC Hgb Hct RDW Plt Count Lymph % (Auto) [place] % (Auto) Lymph # Seg Neutrophils % Seg Neuts % (Manual) Lymphocytes % (Manual) Seg Neutrophils # Seg Neutrophils # Man Lymphocytes # (Manual) PT INR POC ABG pCO2 VBG pH Sodium Potassium Chloride 109.1 H Carbon Dioxide BUN 24 H Creatinine Glucose 334 H POC Glucose 335 H 288 H Lactic Acid Calcium 8.2 L Ionized Calcium Phosphorus Magnesium AST Total Creatine Kinase C-Reactive Protein Total Protein 5.5 L Albumin 1.8 L TSH Free T4 PTH Intact Urine WBC (Auto) Urine Creatinine Salicylates Acetaminophen 11/12/18 11/12/18 11/12/18 13:16 16:41 20:58 WBC RBC Hgb Hct RDW Plt Count Lymph % (Auto) [place] % (Auto) Lymph # Seg Neutrophils % Seg Neuts % (Manual) Lymphocytes % (Manual) Seg Neutrophils # Seg Neutrophils # Man Lymphocytes # (Manual) PT INR POC ABG pCO2 VBG pH Sodium Potassium Chloride Carbon Dioxide BUN Creatinine Glucose POC Glucose 245 H 343 H 403 H Lactic Acid Calcium Ionized Calcium Phosphorus Magnesium AST Total Creatine Kinase C-Reactive Protein Total Protein Albumin TSH Free T4 PTH Intact Urine WBC (Auto) Urine Creatinine Salicylates Acetaminophen 11/13/18 11/13/18 11/13/18 00:21 04:15 04:15 WBC RBC 3.15 L Hgb 9.6 L Hct 28.0 L RDW Plt Count 633 H Lymph % (Auto) 8.8 L [place] % (Auto) 7.6 H Lymph # 0.7 L Seg Neutrophils % 82.2 H Seg Neuts % (Manual) Lymphocytes % (Manual) Seg Neutrophils # Seg Neutrophils # Man Lymphocytes # (Manual) PT INR POC ABG pCO2 VBG pH Sodium 148 H Potassium Chloride 110.1 H Carbon Dioxide BUN 26 H Creatinine Glucose 337 H POC Glucose 391 H Lactic Acid Calcium 8.0 L Ionized Calcium Phosphorus Magnesium AST Total Creatine Kinase C-Reactive Protein Total Protein 5.7 L Albumin 1.8 L TSH Free T4 PTH Intact Urine WBC (Auto) Urine Creatinine Salicylates Acetaminophen 11/13/18 11/13/18 11/13/18 04:32 09:08 17:04 WBC RBC Hgb Hct RDW Plt Count Lymph % (Auto) [place] % (Auto) Lymph # Seg Neutrophils % Seg Neuts % (Manual) Lymphocytes % (Manual) Seg Neutrophils # Seg Neutrophils # Man Lymphocytes # (Manual) PT INR POC ABG pCO2 VBG pH Sodium Potassium Chloride Carbon Dioxide BUN Creatinine Glucose POC Glucose 350 H 285 H 345 H Lactic Acid Calcium Ionized Calcium Phosphorus Magnesium AST Total Creatine Kinase C-Reactive Protein Total Protein Albumin TSH Free T4 PTH Intact Urine WBC (Auto) Urine Creatinine Salicylates Acetaminophen 11/13/18 11/14/18 11/14/18 21:13 01:16 02:38 WBC RBC Hgb Hct RDW Plt Count Lymph % (Auto) [place] % (Auto) Lymph # Seg Neutrophils % Seg Neuts % (Manual) Lymphocytes % (Manual) Seg Neutrophils # Seg Neutrophils # Man Lymphocytes # (Manual) PT INR POC ABG pCO2 VBG pH Sodium 147 H Potassium 5.1 H D Chloride 107.3 H Carbon Dioxide BUN 27 H Creatinine 0.7 L Glucose 298 H POC Glucose 338 H 311 H Lactic Acid Calcium 7.7 L Ionized Calcium Phosphorus Magnesium AST Total Creatine Kinase C-Reactive Protein Total Protein Albumin TSH Free T4 PTH Intact Urine WBC (Auto) Urine Creatinine Salicylates Acetaminophen 11/14/18 11/14/18 11/14/18 05:22 09:09 14:21 WBC RBC Hgb Hct RDW Plt Count Lymph % (Auto) [place] % (Auto) Lymph # Seg Neutrophils % Seg Neuts % (Manual) Lymphocytes % (Manual) Seg Neutrophils # Seg Neutrophils # Man Lymphocytes # (Manual) PT INR POC ABG pCO2 VBG pH Sodium Potassium Chloride Carbon Dioxide BUN Creatinine Glucose POC Glucose 250 H 266 H 270 H Lactic Acid Calcium Ionized Calcium Phosphorus Magnesium AST Total Creatine Kinase C-Reactive Protein Total Protein Albumin TSH Free T4 PTH Intact Urine WBC (Auto) Urine Creatinine Salicylates Acetaminophen 11/14/18 11/14/18 11/15/18 17:06 21:08 01:16 WBC RBC Hgb Hct RDW Plt Count Lymph % (Auto) [place] % (Auto) Lymph # Seg Neutrophils % Seg Neuts % (Manual) Lymphocytes % (Manual) Seg Neutrophils # Seg Neutrophils # Man Lymphocytes # (Manual) PT INR POC ABG pCO2 VBG pH Sodium Potassium Chloride Carbon Dioxide BUN Creatinine Glucose POC Glucose 264 H 257 H 214 H Lactic Acid Calcium Ionized Calcium Phosphorus Magnesium AST Total Creatine Kinase C-Reactive Protein Total Protein Albumin TSH Free T4 PTH Intact Urine WBC (Auto) Urine Creatinine Salicylates Acetaminophen 11/15/18 11/15/18 11/15/18 03:58 03:58 05:01 WBC RBC 3.03 L Hgb 9.2 L Hct 26.8 L RDW 13.1 L Plt Count 831 H Lymph % (Auto) [place] % (Auto) 7.5 H Lymph # Seg Neutrophils % 75.0 H Seg Neuts % (Manual) Lymphocytes % (Manual) Seg Neutrophils # Seg Neutrophils # Man Lymphocytes # (Manual) PT INR POC ABG pCO2 VBG pH Sodium 148 H Potassium Chloride 108.5 H Carbon Dioxide 31 H BUN 22 H Creatinine 0.7 L Glucose 184 H POC Glucose 160 H Lactic Acid Calcium 8.3 L Ionized Calcium Phosphorus Magnesium AST Total Creatine Kinase C-Reactive Protein Total Protein 5.6 L Albumin 2.2 L TSH Free T4 PTH Intact Urine WBC (Auto) Urine Creatinine Salicylates Acetaminophen 11/15/18 11/15/18 11/15/18 09:12 14:47 16:38 WBC RBC Hgb Hct RDW Plt Count Lymph % (Auto) [place] % (Auto) Lymph # Seg Neutrophils % Seg Neuts % (Manual) Lymphocytes % (Manual) Seg Neutrophils # Seg Neutrophils # Man Lymphocytes # (Manual) PT INR POC ABG pCO2 VBG pH Sodium Potassium Chloride Carbon Dioxide BUN Creatinine Glucose POC Glucose 139 H 221 H 259 H Lactic Acid Calcium Ionized Calcium Phosphorus Magnesium AST Total Creatine Kinase C-Reactive Protein Total Protein Albumin TSH Free T4 PTH Intact Urine WBC (Auto) Urine Creatinine Salicylates Acetaminophen 11/15/18 11/16/18 11/16/18 21:17 00:53 04:41 WBC RBC Hgb Hct RDW Plt Count Lymph % (Auto) [place] % (Auto) Lymph # Seg Neutrophils % Seg Neuts % (Manual) Lymphocytes % (Manual) Seg Neutrophils # Seg Neutrophils # Man Lymphocytes # (Manual) PT INR POC ABG pCO2 VBG pH Sodium Potassium Chloride Carbon Dioxide 31 H BUN Creatinine 0.6 L Glucose 142 H POC Glucose 187 H 183 H Lactic Acid Calcium 8.1 L Ionized Calcium Phosphorus Magnesium AST Total Creatine Kinase C-Reactive Protein Total Protein 5.6 L Albumin 2.3 L TSH Free T4 PTH Intact Urine WBC (Auto) Urine Creatinine Salicylates Acetaminophen 11/16/18 11/16/18 11/16/18 04:46 10:01 13:09 WBC RBC Hgb Hct RDW Plt Count Lymph % (Auto) [place] % (Auto) Lymph # Seg Neutrophils % Seg Neuts % (Manual) Lymphocytes % (Manual) Seg Neutrophils # Seg Neutrophils # Man Lymphocytes # (Manual) PT INR POC ABG pCO2 VBG pH Sodium Potassium Chloride Carbon Dioxide BUN Creatinine Glucose POC Glucose 135 H 270 H 221 H Lactic Acid Calcium Ionized Calcium Phosphorus Magnesium AST Total Creatine Kinase C-Reactive Protein Total Protein Albumin TSH Free T4 PTH Intact Urine WBC (Auto) Urine Creatinine Salicylates Acetaminophen 11/16/18 11/16/18 11/17/18 17:06 21:54 01:52 WBC RBC Hgb Hct RDW Plt Count Lymph % (Auto) [place] % (Auto) Lymph # Seg Neutrophils % Seg Neuts % (Manual) Lymphocytes % (Manual) Seg Neutrophils # Seg Neutrophils # Man Lymphocytes # (Manual) PT INR POC ABG pCO2 VBG pH Sodium Potassium Chloride Carbon Dioxide BUN Creatinine Glucose POC Glucose 226 H 148 H 152 H Lactic Acid Calcium Ionized Calcium Phosphorus Magnesium AST Total Creatine Kinase C-Reactive Protein Total Protein Albumin TSH Free T4 PTH Intact Urine WBC (Auto) Urine Creatinine Salicylates Acetaminophen 11/17/18 11/17/18 11/17/18 04:48 05:31 07:48 WBC RBC Hgb Hct RDW Plt Count Lymph % (Auto) [place] % (Auto) Lymph # Seg Neutrophils % Seg Neuts % (Manual) Lymphocytes % (Manual) Seg Neutrophils # Seg Neutrophils # Man Lymphocytes # (Manual) PT INR POC ABG pCO2 VBG pH Sodium Potassium Chloride Carbon Dioxide BUN Creatinine 0.6 L Glucose 175 H POC Glucose 140 H 154 H Lactic Acid Calcium 8.0 L Ionized Calcium Phosphorus Magnesium AST Total Creatine Kinase C-Reactive Protein Total Protein 5.6 L Albumin 2.3 L TSH Free T4 PTH Intact Urine WBC (Auto) Urine Creatinine Salicylates Acetaminophen 11/17/18 11/17/18 11/17/18 11:30 16:50 21:48 WBC RBC Hgb Hct RDW Plt Count Lymph % (Auto) [place] % (Auto) Lymph # Seg Neutrophils % Seg Neuts % (Manual) Lymphocytes % (Manual) Seg Neutrophils # Seg Neutrophils # Man Lymphocytes # (Manual) PT INR POC ABG pCO2 VBG pH Sodium Potassium Chloride Carbon Dioxide BUN Creatinine Glucose POC Glucose 256 H 398 H 362 H Lactic Acid Calcium Ionized Calcium Phosphorus Magnesium AST Total Creatine Kinase C-Reactive Protein Total Protein Albumin TSH Free T4 PTH Intact Urine WBC (Auto) Urine Creatinine Salicylates Acetaminophen 11/18/18 11/18/18 02:08 05:26 WBC RBC Hgb Hct RDW Plt Count Lymph % (Auto) [place] % (Auto) Lymph # Seg Neutrophils % Seg Neuts % (Manual) Lymphocytes % (Manual) Seg Neutrophils # Seg Neutrophils # Man Lymphocytes # (Manual) PT INR POC ABG pCO2 VBG pH Sodium Potassium Chloride Carbon Dioxide BUN Creatinine Glucose POC Glucose 316 H 207 H Lactic Acid Calcium Ionized Calcium Phosphorus Magnesium AST Total Creatine Kinase C-Reactive Protein Total Protein Albumin TSH Free T4 PTH Intact Urine WBC (Auto) Urine Creatinine Salicylates Acetaminophen Allied health notes reviewed: nursing
[2018-11-18] MEDS: FLOMAX PO SCH (10:27)
[2018-11-18] MEDS: HEPARIN SUB-Q SCH ×2 (10:27→21:30)
[2018-11-18] MEDS: SODIUM CHLORIDE FLUSH SYRINGE 10 ML IV SCH ×2 (10:28→21:32)
[2018-11-18] MEDS: PREVACID SOLUTAB FEEDTUBE SCH ×2 (10:28→21:33)
--- NOTE | 2018-11-18 21:07 | Progress Note ---
Assessment and Plan 53 YO Male with DM presents to ED for evaluation. Pt is stuporous st time of my exam and unable to provide history. Pt history taken from EMS as well as ED staff. As per staff, the patient found down and unresponsive in his home. Pt last contact with family was 5 days ago. At that time the patient was in his usual state of health. A well check was conducted, and the patient was unable to answer the door. Law Enforcement was contacted, and gained entry into the home. The patient was subsequently found down, and unresponsive and lying on the kitchen floor covered in fecal matter. EMS notified, and upon arrival the patient was found to have a serum glucose above 500, and in distress. Pt transported to [facility]. Pt seen and evaluated in ED and found to have DKA, Metabolic Encephalopathy, Sepsis suspected secondary to UTI, Rhabdomyolysis, Acidosis, and Acute Kidney Injury. Pt admitted to ICU and initiated on Sepsis protocol, as well as DKA protocol. Nephrology consulted in ED. Pulmonary team consulted in ED. No further history obtainable. No prior admission for review. No medication listed at time of admission for reconciliation. Patient was then admitted and commenced on DKA protocol. Glucose 1088 on admit, now 195. BUN 200 on admit, now 98. Found to be hypernatremic with improved glycemic control. Low T4 and elevarted TSH levels - Metabolic encephalopathy - improving. Follows all commands - Debilitation from prolonged illness PT/OT - Sepsis - resolved Dysphagia Video fluoroscopic swallow showed no evidence of aspiration Tolerating regular diet - Fever and white count since resolved. Unclear etiology of sepsis as all cultures are negative. Possible UTI, UA with pyuria but otherwise not significant. UCx negative. Levaquin d/teofilo - T2DM s/p resolved DKA. Continue with SSI Accu-Check Consistent CHO diet - Milk hyperkalemia corrected - JAVY due to vasomotor nephropathy - improving IV hydration Nephrology consulted and following - Hypernatremia -improved continue free water via NG tube - Hypothyroidism Supplement thyroid - Severe Protein calorie malnutrition Dietary consult - UTI off levofloxacin. Urine Cx no growth so far - DVT and GI prophylaxis with Lovenox and omeprazole - CODE STATUS: Patient is full code - Disposition: Discussed with Case Mx. [facility] Transfer to SNF for PT whenever bed is available - Time spent: 25 min minutes Subjective Date of service: 11/18/18 Principal diagnosis: Ac hypoxemic resp failure; Severe sepsis; DKA; JAVY; Ac encephalopathy; UTI Interval history: Patient seen and examined. Alert and oriented x 3. Moved his arms but weak on his lower extremities. Objective - Exam Narrative Exam: Constitutional: Alert adn oriented x 3. Very interactive. Still Ill-looking Head: Normocephalic atraumatic Eyes: Pupils are equal round and reactive to light Nose: No enlarged turbinates, no septal deviation. Mouth: Moist mucous membranes. ON NGT feeding Neck: Supple no thyromegaly. No bruit. No JVD Heart: Regular rate and rhythm, S1-S2 normal. No rubs murmurs or gallop Lungs: Clear to auscultation bilaterally. no rales or rhonchi Abdomen: Soft, nontender. Bowel sound are present. Extremities: No edema, no cyanosis, no clubbing. skin ulcers Neuro:AxO x3 . Answers all short question appropriately. weak only in both LEs Skin: Skin ulcer in the lower extrmities Musculoskeletal system: No joint pain or swelling Hematological: No petechia or subcutanous hemorrhages. Immunological: No multiple septic spots on the skin Lymphatic: No generalized lymphadenopathy Psychiatry: No depression - Constitutional Vitals: Vital Signs - 12hr 11/18/18 11/18/18 11:57 16:59 Temperature 99.2 F 99.5 F Pulse Rate 93 H 95 H Respiratory 18 20 Rate Blood Pressure 106/66 117/78 O2 Sat by Pulse 94 95 Oximetry - Labs CBC & Chem 7: 11/15/18 03:58 11/17/18 04:48 Labs: Abnormal lab results 11/17/18 11/18/18 11/18/18 Range/Units 21:48 02:08 05:26 POC Glucose 362 H 316 H 207 H (70-105) 11/18/18 11/18/18 11/18/18 Range/Units 12:05 17:08 20:12 POC Glucose 189 H 193 H 235 H (70-105)
[2018-11-18] MEDS: LANTUS SUB-Q SCH (21:29)
[2018-11-19] MEDS: HumaLOG SUB-Q SCH ×6 (01:43→22:05)
[2018-11-19] MEDS: FLOMAX PO SCH (09:36)
[2018-11-19] MEDS: SODIUM CHLORIDE FLUSH SYRINGE 10 ML IV SCH ×2 (09:36→22:06)
[2018-11-19] MEDS: HEPARIN SUB-Q SCH ×2 (09:36→22:05)
--- NOTE | 2018-11-19 11:47 | Progress Note ---
Assessment and Plan 53 YO Male with DM presents to ED for evaluation. Pt is stuporous st time of my exam and unable to provide history. Pt history taken from EMS as well as ED staff. As per staff, the patient found down and unresponsive in his home. Pt last contact with family was 5 days ago. At that time the patient was in his usual state of health. A well check was conducted, and the patient was unable to answer the door. Law Enforcement was contacted, and gained entry into the home. The patient was subsequently found down, and unresponsive and lying on the kitchen floor covered in fecal matter. EMS notified, and upon arrival the patient was found to have a serum glucose above 500, and in distress. Pt transported to [facility]. Pt seen and evaluated in ED and found to have DKA, Metabolic Encephalopathy, Sepsis suspected secondary to UTI, Rhabdomyolysis, Acidosis, and Acute Kidney Injury. Pt admitted to ICU and initiated on Sepsis protocol, as well as DKA protocol. Nephrology consulted in ED. Pulmonary team consulted in ED. No further history obtainable. No prior admission for review. No medication listed at time of admission for reconciliation. Patient was then admitted and commenced on DKA protocol. Glucose 1088 on admit, now 195. BUN 200 on admit, now 98. Found to be hypernatremic with improved glycemic control. Low T4 and elevarted TSH levels - Metabolic encephalopathy - improving. Follows all commands - Debilitation from prolonged illness PT/OT - Sepsis - resolved Dysphagia - resolved Video fluoroscopic swallow showed no evidence of aspiration Tolerating regular diet - Fever and white count since resolved. Unclear etiology of sepsis as all cultures are negative. Possible UTI, UA with pyuria but otherwise not significant. UCx negative. Levaquin d/teofilo - T2DM s/p resolved DKA. Continue with SSI Accu-Check had blood glucose of 70s yesterday Consistent CHO diet Decrease Lantus to 20 unit qhs - JAVY due to vasomotor nephropathy - improving IV hydration Nephrology consulted and following - Hypernatremia -improved continue free water via NG tube - Hypothyroidism Supplement thyroid - Severe Protein calorie malnutrition Dietary consult - UTI off levofloxacin. Urine Cx no growth so far - DVT and GI prophylaxis with Lovenox and Omeprazole - CODE STATUS: Patient is full code - Disposition: Discussed with Case Mx. [facility] for [facility]. Transfer to SNF for PT whenever bed is available - Time spent: 25 min minutes Subjective Date of service: 11/19/18 Principal diagnosis: Ac hypoxemic resp failure; Severe sepsis; DKA; JAVY; Ac encephalopathy; UTI Interval history: Patient seen and examined. Alert and oriented x 3. Moved his arms but weak on his lower extremities. Able to seat on the edge of the bed Objective - Exam Narrative Exam: Constitutional: Alert and oriented x 3. Very interactive. Weak Head: Normocephalic atraumatic Eyes: Pupils are equal round and reactive to light Nose: No enlarged turbinates, no septal deviation. Mouth: Moist mucous membranes. ON NGT feeding Neck: Supple no thyromegaly. No bruit. No JVD Heart: Regular rate and rhythm, S1-S2 normal. No rubs murmurs or gallop Lungs: Clear to auscultation bilaterally. no rales or rhonchi Abdomen: Soft, nontender. Bowel sound are present. Extremities: No edema, no cyanosis, no clubbing. skin ulcers Neuro:AxO x3 . Answers all short question appropriately. weak only in both LEs Skin: Skin ulcer in the lower extrmities Musculoskeletal system: No joint pain or swelling Hematological: No petechia or subcutanous hemorrhages. Immunological: No multiple septic spots on the skin Lymphatic: No generalized lymphadenopathy Psychiatry: No depression - Constitutional Vitals: Vital Signs - 12hr 11/19/18 05:06 Temperature 98.9 F Pulse Rate 91 H Respiratory 18 Rate Blood Pressure 125/81 O2 Sat by Pulse 97 Oximetry - Labs CBC & Chem 7: 11/15/18 03:58 11/19/18 08:02 Labs: Abnormal lab results 11/18/18 11/18/18 11/18/18 Range/Units 12:05 17:08 20:12 Glucose (75-100) mg/dL POC Glucose 189 H 193 H 235 H (70-105) 11/19/18 11/19/18 11/19/18 Range/Units 00:08 04:18 07:43 Glucose (75-100) mg/dL POC Glucose 223 H 155 H 49 L (70-105) 11/19/18 Range/Units 08:02 Glucose 72 L (75-100) mg/dL POC Glucose (70-105)
[2018-11-19] MEDS: PREVACID SOLUTAB FEEDTUBE SCH (11:52)
--- NOTE | 2018-11-19 12:42 | Progress Note ---
Assessment and Plan Acute hypoxemic respiratory failure, s/p supplemental oxygen. Severe sepsis with shock (unspecified) Diabetic ketoacidosis, resolved Acute kidney injury, resolved Rhabdomyolysis. Acute encephalopathy,much improved Hyperkalemia, resolved. Possible urinary tract infection. Severe metabolic acidosis, resolved. Leukocytosis, resolved Continue all current care as outlined - wean supplemental oxygen for O2 sat's > 90% - antibiotics per ID - avoid nephrotoxins , dose all medications for GFR/CrCL - wound care per WCT - continue VTE prophylaxis -continue PT/OT, increase activity -Supportive care -Discharge planning Subjective Date of service: 11/19/18 Principal diagnosis: Ac hypoxemic resp failure; Severe sepsis; DKA; JAVY; Ac encephalopathy; UTI Interval history: Patient is seen today for: Acute hypoxemic respiratory failure; Severe sepsis with shock; Diabetic ketoacidosis; Acute kidney injury; Rhabdomyolysis; Acute encephalopathy, likely toxic metabolic; Hyperkalemia; Possible urinary tract infection; Severe metabolic acidosis; Possible hypothyroidism; Leukocytosis Seen and examined at bedside; 24hour events reviewed; nursing and respiratory care staff consulted; no adverse overnight events reported to me; resting peacefully in bed; no over night fever, no vomiting, no diarrhea. Vitals, labs, medications, chart reviewed Objective Vital Signs - 12hr 11/19/18 05:06 Temperature 98.9 F Pulse Rate 91 H Respiratory 18 Rate Blood Pressure 125/81 O2 Sat by Pulse 97 Oximetry Constitutional: alert, other (middle aged normocephalic and atraumatic AAM) Eyes: non-icteric ENT: oropharynx moist, other (mallampati 2) Neck: supple, no lymphadenopathy, no JVD Effort: normal Ascultation: Bilateral: clear, diminished breath sounds, rhonchi Percussion: Bilateral: not dull Cardiovascular: regular rate and rhythm Gastrointestinal: normoactive bowel sounds, soft, non-tender, non-distended Integumentary: normal Extremities: no cyanosis, no edema, pulses normal, no ischemia or petechiae Neurologic: non-focal exam, pupils equal and round, CN II-XII normal, other (weak, deconditioned) Psychiatric: mood appropriate, affect normal CBC and BMP: 11/15/18 03:58 11/19/18 08:02 ABG, PT/INR, D-dimer: ABG POC ABG pH 7.432 (7.35-7.45) 11/05/18 17:08 POC ABG pCO2 32.3 (35-45) L 11/05/18 17:08 POC ABG HCO3 21.5 (22-26 mml/L) 11/05/18 17:08 POC ABG Total CO2 23 (23-27mmol/L) 11/05/18 17:08 POC ABG O2 Sat 85 11/05/18 17:08 PT/INR, D-dimer PT 15.6 Sec. (12.2-14.9) H 11/04/18 16:05 INR 1.27 (0.87-1.13) H 11/04/18 16:05 Abnormal lab findings: Abnormal Labs 11/04/18 11/04/18 11/04/18 15:23 15:35 16:05 WBC 12.6 H RBC Hgb Hct RDW Plt Count Lymph % (Auto) [place] % (Auto) Lymph # Seg Neutrophils % Seg Neuts % (Manual) 84.0 H Lymphocytes % (Manual) 1.0 L Seg Neutrophils # Seg Neutrophils # Man 10.6 H Lymphocytes # (Manual) 0.1 L PT INR POC ABG pCO2 VBG pH Sodium Potassium Chloride Carbon Dioxide BUN Creatinine Glucose POC Glucose > 500 H Lactic Acid Calcium Ionized Calcium Phosphorus Magnesium AST Total Creatine Kinase C-Reactive Protein Total Protein Albumin TSH Free T4 PTH Intact Urine WBC (Auto) 12.0 H Urine Creatinine Salicylates Acetaminophen 11/04/18 11/04/18 11/04/18 16:05 16:05 16:05 WBC RBC Hgb Hct RDW Plt Count Lymph % (Auto) [place] % (Auto) Lymph # Seg Neutrophils % Seg Neuts % (Manual) Lymphocytes % (Manual) Seg Neutrophils # Seg Neutrophils # Man Lymphocytes # (Manual) PT 15.6 H INR 1.27 H POC ABG pCO2 VBG pH Sodium 153 H Potassium 6.2 H* Chloride Carbon Dioxide 18 L BUN 200 H Creatinine 6.8 H Glucose 1088 H* POC Glucose Lactic Acid 2.80 H* Calcium 7.2 L Ionized Calcium Phosphorus Magnesium AST Total Creatine Kinase C-Reactive Protein Total Protein Albumin 3.1 L TSH Free T4 PTH Intact Urine WBC (Auto) Urine Creatinine Salicylates Acetaminophen 11/04/18 11/04/18 11/04/18 16:05 16:05 16:05 WBC RBC Hgb Hct RDW Plt Count Lymph % (Auto) [place] % (Auto) Lymph # Seg Neutrophils % Seg Neuts % (Manual) Lymphocytes % (Manual) Seg Neutrophils # Seg Neutrophils # Man Lymphocytes # (Manual) PT INR POC ABG pCO2 VBG pH 7.245 L Sodium Potassium Chloride Carbon Dioxide BUN Creatinine Glucose POC Glucose Lactic Acid Calcium Ionized Calcium Phosphorus 13.80 H Magnesium 3.60 H AST Total Creatine Kinase C-Reactive Protein Total Protein Albumin TSH 0.169 L Free T4 0.68 L PTH Intact Urine WBC (Auto) Urine Creatinine Salicylates Acetaminophen 11/04/18 11/04/18 11/04/18 16:05 16:48 19:40 WBC RBC Hgb Hct RDW Plt Count Lymph % (Auto) [place] % (Auto) Lymph # Seg Neutrophils % Seg Neuts % (Manual) Lymphocytes % (Manual) Seg Neutrophils # Seg Neutrophils # Man Lymphocytes # (Manual) PT INR POC ABG pCO2 VBG pH Sodium Potassium Chloride Carbon Dioxide BUN Creatinine Glucose POC Glucose > 500 H 458 H Lactic Acid Calcium Ionized Calcium Phosphorus Magnesium AST Total Creatine Kinase 1857 H C-Reactive Protein Total Protein Albumin TSH Free T4 PTH Intact Urine WBC (Auto) Urine Creatinine Salicylates Acetaminophen 11/04/18 11/04/18 11/04/18 20:29 20:29 20:29 WBC RBC Hgb Hct RDW Plt Count Lymph % (Auto) [place] % (Auto) Lymph # Seg Neutrophils % Seg Neuts % (Manual) Lymphocytes % (Manual) Seg Neutrophils # Seg Neutrophils # Man Lymphocytes # (Manual) PT INR POC ABG pCO2 VBG pH Sodium 163 H* D Potassium Chloride 121.4 H Carbon Dioxide 21 L BUN 166 H Creatinine 5.6 H Glucose 513 H* POC Glucose Lactic Acid 3.30 H* 3.30 H* Calcium 6.4 L Ionized Calcium Phosphorus Magnesium AST Total Creatine Kinase C-Reactive Protein Total Protein Albumin TSH Free T4 PTH Intact Urine WBC (Auto) Urine Creatinine Salicylates Acetaminophen 11/04/18 11/04/18 11/04/18 20:55 21:03 22:00 WBC RBC Hgb Hct RDW Plt Count Lymph % (Auto) [place] % (Auto) Lymph # Seg Neutrophils % Seg Neuts % (Manual) Lymphocytes % (Manual) Seg Neutrophils # Seg Neutrophils # Man Lymphocytes # (Manual) PT INR POC ABG pCO2 VBG pH Sodium Potassium Chloride Carbon Dioxide BUN Creatinine Glucose POC Glucose 496 H Lactic Acid 3.60 H* Calcium Ionized Calcium Phosphorus Magnesium AST Total Creatine Kinase C-Reactive Protein Total Protein Albumin TSH Free T4 PTH Intact Urine WBC (Auto) Urine Creatinine 58.1 H Salicylates Acetaminophen 11/04/18 11/04/18 11/04/18 22:04 23:07 23:47 WBC RBC Hgb Hct RDW Plt Count Lymph % (Auto) [place] % (Auto) Lymph # Seg Neutrophils % Seg Neuts % (Manual) Lymphocytes % (Manual) Seg Neutrophils # Seg Neutrophils # Man Lymphocytes # (Manual) PT INR POC ABG pCO2 VBG pH Sodium 170 H* Potassium Chloride 127.1 H Carbon Dioxide BUN 164 H Creatinine 5.2 H Glucose 213 H POC Glucose 357 H 306 H Lactic Acid Calcium 6.5 L Ionized Calcium Phosphorus Magnesium AST Total Creatine Kinase C-Reactive Protein Total Protein Albumin TSH Free T4 PTH Intact Urine WBC (Auto) Urine Creatinine Salicylates Acetaminophen 11/04/18 11/05/18 11/05/18 23:47 00:04 00:09 WBC RBC Hgb Hct RDW Plt Count Lymph % (Auto) [place] % (Auto) Lymph # Seg Neutrophils % Seg Neuts % (Manual) Lymphocytes % (Manual) Seg Neutrophils # Seg Neutrophils # Man Lymphocytes # (Manual) PT INR POC ABG pCO2 VBG pH Sodium 163 H* Potassium Chloride 127.5 H Carbon Dioxide BUN 117 H Creatinine 3.3 H Glucose 235 H POC Glucose 219 H Lactic Acid 3.20 H* Calcium 6.8 L Ionized Calcium Phosphorus Magnesium AST Total Creatine Kinase C-Reactive Protein Total Protein Albumin TSH Free T4 PTH Intact Urine WBC (Auto) Urine Creatinine Salicylates Acetaminophen 11/05/18 11/05/18 11/05/18 00:59 03:13 03:52 WBC RBC Hgb Hct RDW Plt Count Lymph % (Auto) [place] % (Auto) Lymph # Seg Neutrophils % Seg Neuts % (Manual) Lymphocytes % (Manual) Seg Neutrophils # Seg Neutrophils # Man Lymphocytes # (Manual) PT INR POC ABG pCO2 VBG pH Sodium Potassium Chloride Carbon Dioxide BUN Creatinine Glucose POC Glucose 204 H 124 H Lactic Acid Calcium Ionized Calcium Phosphorus Magnesium AST Total Creatine Kinase 1680 H C-Reactive Protein Total Protein Albumin TSH Free T4 PTH Intact Urine WBC (Auto) Urine Creatinine Salicylates Acetaminophen 11/05/18 11/05/18 11/05/18 03:52 04:25 05:11 WBC RBC Hgb Hct RDW Plt Count Lymph % (Auto) [place] % (Auto) Lymph # Seg Neutrophils % Seg Neuts % (Manual) Lymphocytes % (Manual) Seg Neutrophils # Seg Neutrophils # Man Lymphocytes # (Manual) PT INR POC ABG pCO2 VBG pH Sodium 169 H* Potassium Chloride 126.2 H Carbon Dioxide BUN 156 H Creatinine 4.7 H Glucose 128 H POC Glucose 150 H 173 H Lactic Acid Calcium 6.3 L Ionized Calcium Phosphorus Magnesium AST Total Creatine Kinase C-Reactive Protein Total Protein Albumin TSH Free T4 PTH Intact Urine WBC (Auto) Urine Creatinine Salicylates Acetaminophen 11/05/18 11/05/18 11/05/18 06:05 06:58 07:48 WBC RBC Hgb Hct RDW Plt Count Lymph % (Auto) [place] % (Auto) Lymph # Seg Neutrophils % Seg Neuts % (Manual) Lymphocytes % (Manual) Seg Neutrophils # Seg Neutrophils # Man Lymphocytes # (Manual) PT INR POC ABG pCO2 VBG pH Sodium Potassium Chloride Carbon Dioxide BUN Creatinine Glucose POC Glucose 136 H 152 H 177 H Lactic Acid Calcium Ionized Calcium Phosphorus Magnesium AST Total Creatine Kinase C-Reactive Protein Total Protein Albumin TSH Free T4 PTH Intact Urine WBC (Auto) Urine Creatinine Salicylates Acetaminophen 11/05/18 11/05/18 11/05/18 08:21 08:21 08:23 WBC RBC Hgb Hct RDW Plt Count Lymph % (Auto) [place] % (Auto) Lymph # Seg Neutrophils % Seg Neuts % (Manual) Lymphocytes % (Manual) Seg Neutrophils # Seg Neutrophils # Man Lymphocytes # (Manual) PT INR POC ABG pCO2 VBG pH Sodium 171 H* Potassium Chloride 128.9 H Carbon Dioxide BUN 149 H Creatinine 4.5 H Glucose 159 H POC Glucose 157 H Lactic Acid Calcium 6.7 L Ionized Calcium Phosphorus Magnesium AST Total Creatine Kinase C-Reactive Protein Total Protein Albumin TSH Free T4 PTH Intact 119.3 H Urine WBC (Auto) Urine Creatinine Salicylates Acetaminophen 11/05/18 11/05/18 11/05/18 10:21 11:12 12:37 WBC RBC Hgb Hct RDW Plt Count Lymph % (Auto) [place] % (Auto) Lymph # Seg Neutrophils % Seg Neuts % (Manual) Lymphocytes % (Manual) Seg Neutrophils # Seg Neutrophils # Man Lymphocytes # (Manual) PT INR POC ABG pCO2 VBG pH Sodium Potassium Chloride Carbon Dioxide BUN Creatinine Glucose POC Glucose 171 H 155 H 145 H Lactic Acid Calcium Ionized Calcium Phosphorus Magnesium AST Total Creatine Kinase C-Reactive Protein Total Protein Albumin TSH Free T4 PTH Intact Urine WBC (Auto) Urine Creatinine Salicylates Acetaminophen 11/05/18 11/05/18 11/05/18 13:24 13:47 14:42 WBC RBC Hgb Hct RDW Plt Count Lymph % (Auto) [place] % (Auto) Lymph # Seg Neutrophils % Seg Neuts % (Manual) Lymphocytes % (Manual) Seg Neutrophils # Seg Neutrophils # Man Lymphocytes # (Manual) PT INR POC ABG pCO2 VBG pH Sodium 167 H* Potassium Chloride 131.6 H Carbon Dioxide BUN 130 H Creatinine 3.8 H Glucose 136 H POC Glucose 137 H 133 H Lactic Acid Calcium 6.4 L Ionized Calcium Phosphorus Magnesium AST Total Creatine Kinase C-Reactive Protein Total Protein Albumin TSH Free T4 PTH Intact Urine WBC (Auto) Urine Creatinine Salicylates Acetaminophen 11/05/18 11/05/18 11/05/18 16:55 17:08 18:14 WBC RBC Hgb Hct RDW Plt Count Lymph % (Auto) [place] % (Auto) Lymph # Seg Neutrophils % Seg Neuts % (Manual) Lymphocytes % (Manual) Seg Neutrophils # Seg Neutrophils # Man Lymphocytes # (Manual) PT INR POC ABG pCO2 32.3 L VBG pH Sodium Potassium Chloride Carbon Dioxide BUN Creatinine Glucose POC Glucose 194 H 195 H Lactic Acid Calcium Ionized Calcium Phosphorus Magnesium AST Total Creatine Kinase C-Reactive Protein Total Protein Albumin TSH Free T4 PTH Intact Urine WBC (Auto) Urine Creatinine Salicylates Acetaminophen 11/05/18 11/05/18 11/05/18 18:35 18:35 18:35 WBC RBC Hgb Hct RDW Plt Count Lymph % (Auto) [place] % (Auto) Lymph # Seg Neutrophils % Seg Neuts % (Manual) Lymphocytes % (Manual) Seg Neutrophils # Seg Neutrophils # Man Lymphocytes # (Manual) PT INR POC ABG pCO2 VBG pH Sodium Potassium Chloride Carbon Dioxide BUN Creatinine Glucose POC Glucose Lactic Acid Calcium Ionized Calcium Phosphorus Magnesium AST Total Creatine Kinase C-Reactive Protein 19.50 H Total Protein Albumin TSH Free T4 PTH Intact Urine WBC (Auto) Urine Creatinine Salicylates < 0.3 L Acetaminophen < 5.0 L 11/05/18 11/06/18 11/06/18 21:09 01:36 04:50 WBC RBC Hgb 11.3 L Hct 32.8 L D RDW Plt Count 110 L Lymph % (Auto) [place] % (Auto) Lymph # Seg Neutrophils % Seg Neuts % (Manual) Lymphocytes % (Manual) Seg Neutrophils # Seg Neutrophils # Man Lymphocytes # (Manual) PT INR POC ABG pCO2 VBG pH Sodium Potassium Chloride Carbon Dioxide BUN Creatinine Glucose POC Glucose 250 H 289 H Lactic Acid Calcium Ionized Calcium Phosphorus Magnesium AST Total Creatine Kinase C-Reactive Protein Total Protein Albumin TSH Free T4 PTH Intact Urine WBC (Auto) Urine Creatinine Salicylates Acetaminophen 11/06/18 11/06/18 11/06/18 04:50 04:50 05:14 WBC RBC Hgb Hct RDW Plt Count Lymph % (Auto) [place] % (Auto) Lymph # Seg Neutrophils % Seg Neuts % (Manual) Lymphocytes % (Manual) Seg Neutrophils # Seg Neutrophils # Man Lymphocytes # (Manual) PT INR POC ABG pCO2 VBG pH Sodium 165 H* 164 H* Potassium Chloride 127.4 H Carbon Dioxide BUN 113 H Creatinine 3.2 H Glucose 208 H POC Glucose 215 H Lactic Acid Calcium 6.8 L Ionized Calcium Phosphorus Magnesium AST 55 H Total Creatine Kinase C-Reactive Protein Total Protein 5.2 L D Albumin 2.3 L TSH Free T4 PTH Intact Urine WBC (Auto) Urine Creatinine Salicylates Acetaminophen 11/06/18 11/06/18 11/06/18 07:50 08:50 12:16 WBC RBC Hgb Hct RDW Plt Count Lymph % (Auto) [place] % (Auto) Lymph # Seg Neutrophils % Seg Neuts % (Manual) Lymphocytes % (Manual) Seg Neutrophils # Seg Neutrophils # Man Lymphocytes # (Manual) PT INR POC ABG pCO2 VBG pH Sodium 161 H* Potassium Chloride 126.0 H Carbon Dioxide BUN 111 H Creatinine 3.0 H Glucose 187 H POC Glucose 239 H 198 H Lactic Acid Calcium 7.0 L Ionized Calcium Phosphorus Magnesium AST Total Creatine Kinase C-Reactive Protein Total Protein Albumin TSH Free T4 PTH Intact Urine WBC (Auto) Urine Creatinine Salicylates Acetaminophen 11/06/18 11/06/18 11/06/18 15:42 15:42 17:59 WBC RBC Hgb Hct RDW Plt Count Lymph % (Auto) [place] % (Auto) Lymph # Seg Neutrophils % Seg Neuts % (Manual) Lymphocytes % (Manual) Seg Neutrophils # Seg Neutrophils # Man Lymphocytes # (Manual) PT INR POC ABG pCO2 VBG pH Sodium 162 H* Potassium Chloride 127.3 H Carbon Dioxide BUN 98 H Creatinine 2.7 H Glucose 195 H POC Glucose 225 H Lactic Acid Calcium 7.1 L Ionized Calcium 4.4 L Phosphorus Magnesium AST Total Creatine Kinase C-Reactive Protein Total Protein Albumin TSH Free T4 PTH Intact Urine WBC (Auto) Urine Creatinine Salicylates Acetaminophen 11/06/18 11/06/18 11/06/18 21:21 21:24 21:24 WBC RBC Hgb 11.0 L Hct 33.4 L RDW Plt Count Lymph % (Auto) [place] % (Auto) Lymph # Seg Neutrophils % Seg Neuts % (Manual) Lymphocytes % (Manual) Seg Neutrophils # Seg Neutrophils # Man Lymphocytes # (Manual) PT INR POC ABG pCO2 VBG pH Sodium Potassium Chloride Carbon Dioxide BUN Creatinine Glucose POC Glucose 272 H Lactic Acid Calcium Ionized Calcium Phosphorus Magnesium AST Total Creatine Kinase 3538 H C-Reactive Protein Total Protein Albumin TSH Free T4 PTH Intact Urine WBC (Auto) Urine Creatinine Salicylates Acetaminophen 11/07/18 11/07/18 11/07/18 02:01 04:13 04:13 WBC RBC Hgb 11.4 L Hct 33.8 L RDW Plt Count 103 L Lymph % (Auto) [place] % (Auto) Lymph # Seg Neutrophils % Seg Neuts % (Manual) 83.0 H Lymphocytes % (Manual) 6.0 L Seg Neutrophils # Seg Neutrophils # Man Lymphocytes # (Manual) 0.6 L PT INR POC ABG pCO2 VBG pH Sodium 161 H* Potassium Chloride 125.8 H Carbon Dioxide BUN 80 H Creatinine 2.4 H Glucose 246 H POC Glucose 282 H Lactic Acid Calcium 7.4 L Ionized Calcium Phosphorus Magnesium 2.50 H AST 106 H Total Creatine Kinase C-Reactive Protein Total Protein 5.7 L Albumin 2.0 L TSH Free T4 PTH Intact Urine WBC (Auto) Urine Creatinine Salicylates Acetaminophen 11/07/18 11/07/18 11/07/18 04:13 05:17 09:15 WBC RBC Hgb Hct RDW Plt Count Lymph % (Auto) [place] % (Auto) Lymph # Seg Neutrophils % Seg Neuts % (Manual) Lymphocytes % (Manual) Seg Neutrophils # Seg Neutrophils # Man Lymphocytes # (Manual) PT INR POC ABG pCO2 VBG pH Sodium Potassium Chloride Carbon Dioxide BUN Creatinine Glucose POC Glucose 256 H 287 H Lactic Acid Calcium Ionized Calcium Phosphorus Magnesium AST Total Creatine Kinase 2918 H C-Reactive Protein Total Protein Albumin TSH Free T4 PTH Intact Urine WBC (Auto) Urine Creatinine Salicylates Acetaminophen 11/07/18 11/07/18 11/07/18 13:27 15:10 16:38 WBC RBC Hgb 10.2 L Hct 31.2 L RDW Plt Count Lymph % (Auto) [place] % (Auto) Lymph # Seg Neutrophils % Seg Neuts % (Manual) Lymphocytes % (Manual) Seg Neutrophils # Seg Neutrophils # Man Lymphocytes # (Manual) PT INR POC ABG pCO2 VBG pH Sodium Potassium Chloride Carbon Dioxide BUN Creatinine Glucose POC Glucose 281 H 284 H Lactic Acid Calcium Ionized Calcium Phosphorus Magnesium AST Total Creatine Kinase C-Reactive Protein Total Protein Albumin TSH Free T4 PTH Intact Urine WBC (Auto) Urine Creatinine Salicylates Acetaminophen 11/07/18 11/07/18 11/08/18 21:08 21:41 01:24 WBC RBC Hgb 10.2 L Hct 30.8 L RDW Plt Count Lymph % (Auto) [place] % (Auto) Lymph # Seg Neutrophils % Seg Neuts % (Manual) Lymphocytes % (Manual) Seg Neutrophils # Seg Neutrophils # Man Lymphocytes # (Manual) PT INR POC ABG pCO2 VBG pH Sodium Potassium Chloride Carbon Dioxide BUN Creatinine Glucose POC Glucose 349 H 363 H Lactic Acid Calcium Ionized Calcium Phosphorus Magnesium AST Total Creatine Kinase C-Reactive Protein Total Protein Albumin TSH Free T4 PTH Intact Urine WBC (Auto) Urine Creatinine Salicylates Acetaminophen 11/08/18 11/08/18 11/08/18 04:30 04:30 04:30 WBC RBC 3.26 L Hgb 10.2 L Hct 29.9 L RDW Plt Count 103 L Lymph % (Auto) 7.7 L [place] % (Auto) 7.5 H Lymph # 0.8 L Seg Neutrophils % 83.6 H Seg Neuts % (Manual) Lymphocytes % (Manual) Seg Neutrophils # 8.6 H Seg Neutrophils # Man Lymphocytes # (Manual) PT INR POC ABG pCO2 VBG pH Sodium 157 H Potassium 3.5 L Chloride 119.8 H Carbon Dioxide BUN 52 H Creatinine 1.9 H Glucose 244 H POC Glucose Lactic Acid Calcium 7.3 L Ionized Calcium Phosphorus Magnesium AST 88 H Total Creatine Kinase 1829 H C-Reactive Protein Total Protein 4.4 L D Albumin 2.3 L TSH Free T4 PTH Intact Urine WBC (Auto) Urine Creatinine Salicylates Acetaminophen 11/08/18 11/08/18 11/08/18 05:34 09:12 14:20 WBC RBC Hgb Hct RDW Plt Count Lymph % (Auto) [place] % (Auto) Lymph # Seg Neutrophils % Seg Neuts % (Manual) Lymphocytes % (Manual) Seg Neutrophils # Seg Neutrophils # Man Lymphocytes # (Manual) PT INR POC ABG pCO2 VBG pH Sodium Potassium Chloride Carbon Dioxide BUN Creatinine Glucose POC Glucose 250 H 299 H 379 H Lactic Acid Calcium Ionized Calcium Phosphorus Magnesium AST Total Creatine Kinase C-Reactive Protein Total Protein Albumin TSH Free T4 PTH Intact Urine WBC (Auto) Urine Creatinine Salicylates Acetaminophen 11/08/18 11/08/18 11/08/18 14:40 17:14 21:59 WBC RBC Hgb 10.2 L Hct 30.8 L RDW Plt Count Lymph % (Auto) [place] % (Auto) Lymph # Seg Neutrophils % Seg Neuts % (Manual) Lymphocytes % (Manual) Seg Neutrophils # Seg Neutrophils # Man Lymphocytes # (Manual) PT INR POC ABG pCO2 VBG pH Sodium Potassium Chloride Carbon Dioxide BUN Creatinine Glucose POC Glucose 356 H 385 H Lactic Acid Calcium Ionized Calcium Phosphorus Magnesium AST Total Creatine Kinase C-Reactive Protein Total Protein Albumin TSH Free T4 PTH Intact Urine WBC (Auto) Urine Creatinine Salicylates Acetaminophen 11/09/18 11/09/18 11/09/18 00:57 04:33 04:33 WBC RBC 3.20 L Hgb 9.7 L Hct 29.3 L RDW Plt Count 117 L Lymph % (Auto) 8.2 L [place] % (Auto) 7.4 H Lymph # 0.8 L Seg Neutrophils % 83.2 H Seg Neuts % (Manual) Lymphocytes % (Manual) Seg Neutrophils # Seg Neutrophils # Man Lymphocytes # (Manual) PT INR POC ABG pCO2 VBG pH Sodium 148 H D Potassium Chloride 113.2 H Carbon Dioxide BUN 37 H Creatinine Glucose 252 H POC Glucose 362 H Lactic Acid Calcium 7.8 L Ionized Calcium Phosphorus 1.90 L Magnesium AST 52 H Total Creatine Kinase C-Reactive Protein Total Protein 5.3 L D Albumin 1.6 L TSH Free T4 PTH Intact Urine WBC (Auto) Urine Creatinine Salicylates Acetaminophen 11/09/18 11/09/18 11/09/18 05:24 09:15 13:12 WBC RBC Hgb Hct RDW Plt Count Lymph % (Auto) [place] % (Auto) Lymph # Seg Neutrophils % Seg Neuts % (Manual) Lymphocytes % (Manual) Seg Neutrophils # Seg Neutrophils # Man Lymphocytes # (Manual) PT INR POC ABG pCO2 VBG pH Sodium Potassium Chloride Carbon Dioxide BUN Creatinine Glucose POC Glucose 304 H 297 H 300 H Lactic Acid Calcium Ionized Calcium Phosphorus Magnesium AST Total Creatine Kinase C-Reactive Protein Total Protein Albumin TSH Free T4 PTH Intact Urine WBC (Auto) Urine Creatinine Salicylates Acetaminophen 11/09/18 11/09/18 11/10/18 17:35 21:09 00:55 WBC RBC Hgb Hct RDW Plt Count Lymph % (Auto) [place] % (Auto) Lymph # Seg Neutrophils % Seg Neuts % (Manual) Lymphocytes % (Manual) Seg Neutrophils # Seg Neutrophils # Man Lymphocytes # (Manual) PT INR POC ABG pCO2 VBG pH Sodium Potassium Chloride Carbon Dioxide BUN Creatinine Glucose POC Glucose 262 H 213 H 283 H Lactic Acid Calcium Ionized Calcium Phosphorus Magnesium AST Total Creatine Kinase C-Reactive Protein Total Protein Albumin TSH Free T4 PTH Intact Urine WBC (Auto) Urine Creatinine Salicylates Acetaminophen 11/10/18 11/10/18 11/10/18 04:46 04:46 04:46 WBC RBC 3.17 L Hgb 9.6 L Hct 28.7 L RDW Plt Count Lymph % (Auto) 10.3 L [place] % (Auto) 10.0 H Lymph # 0.8 L Seg Neutrophils % 78.6 H Seg Neuts % (Manual) Lymphocytes % (Manual) Seg Neutrophils # Seg Neutrophils # Man Lymphocytes # (Manual) PT INR POC ABG pCO2 VBG pH Sodium 151 H Potassium 3.5 L Chloride 115.1 H Carbon Dioxide BUN 30 H Creatinine Glucose 183 H POC Glucose Lactic Acid Calcium 7.8 L Ionized Calcium Phosphorus Magnesium AST Total Creatine Kinase 408 H C-Reactive Protein Total Protein 5.7 L Albumin 1.8 L TSH Free T4 PTH Intact Urine WBC (Auto) Urine Creatinine Salicylates Acetaminophen 11/10/18 11/10/18 11/10/18 05:12 08:06 11:32 WBC RBC Hgb Hct RDW Plt Count Lymph % (Auto) [place] % (Auto) Lymph # Seg Neutrophils % Seg Neuts % (Manual) Lymphocytes % (Manual) Seg Neutrophils # Seg Neutrophils # Man Lymphocytes # (Manual) PT INR POC ABG pCO2 VBG pH Sodium Potassium Chloride Carbon Dioxide BUN Creatinine Glucose POC Glucose 201 H 195 H 302 H Lactic Acid Calcium Ionized Calcium Phosphorus Magnesium AST Total Creatine Kinase C-Reactive Protein Total Protein Albumin TSH Free T4 PTH Intact Urine WBC (Auto) Urine Creatinine Salicylates Acetaminophen 11/10/18 11/10/18 11/11/18 15:55 21:44 02:06 WBC RBC Hgb Hct RDW Plt Count Lymph % (Auto) [place] % (Auto) Lymph # Seg Neutrophils % Seg Neuts % (Manual) Lymphocytes % (Manual) Seg Neutrophils # Seg Neutrophils # Man Lymphocytes # (Manual) PT INR POC ABG pCO2 VBG pH Sodium Potassium Chloride Carbon Dioxide BUN Creatinine Glucose POC Glucose 292 H 348 H 370 H Lactic Acid Calcium Ionized Calcium Phosphorus Magnesium AST Total Creatine Kinase C-Reactive Protein Total Protein Albumin TSH Free T4 PTH Intact Urine WBC (Auto) Urine Creatinine Salicylates Acetaminophen 11/11/18 11/11/18 11/11/18 04:42 04:42 05:20 WBC RBC 3.13 L Hgb 9.5 L Hct 28.2 L RDW Plt Count Lymph % (Auto) [place] % (Auto) Lymph # Seg Neutrophils % Seg Neuts % (Manual) 91.0 H Lymphocytes % (Manual) 4.0 L Seg Neutrophils # Seg Neutrophils # Man 8.6 H Lymphocytes # (Manual) 0.4 L PT INR POC ABG pCO2 VBG pH Sodium Potassium Chloride 109.6 H Carbon Dioxide BUN 28 H Creatinine Glucose 263 H POC Glucose 272 H Lactic Acid Calcium 7.9 L Ionized Calcium Phosphorus Magnesium AST Total Creatine Kinase C-Reactive Protein Total Protein 5.6 L Albumin 1.6 L TSH Free T4 PTH Intact Urine WBC (Auto) Urine Creatinine Salicylates Acetaminophen 11/11/18 11/11/18 11/11/18 08:30 13:09 17:10 WBC RBC Hgb Hct RDW Plt Count Lymph % (Auto) [place] % (Auto) Lymph # Seg Neutrophils % Seg Neuts % (Manual) Lymphocytes % (Manual) Seg Neutrophils # Seg Neutrophils # Man Lymphocytes # (Manual) PT INR POC ABG pCO2 VBG pH Sodium Potassium Chloride Carbon Dioxide BUN Creatinine Glucose POC Glucose 290 H 340 H 276 H Lactic Acid Calcium Ionized Calcium Phosphorus Magnesium AST Total Creatine Kinase C-Reactive Protein Total Protein Albumin TSH Free T4 PTH Intact Urine WBC (Auto) Urine Creatinine Salicylates Acetaminophen 11/11/18 11/12/18 11/12/18 22:19 00:29 04:51 WBC RBC 3.22 L Hgb 9.7 L Hct 28.6 L RDW Plt Count 454 H Lymph % (Auto) 7.0 L [place] % (Auto) 7.5 H Lymph # 0.7 L Seg Neutrophils % 83.7 H Seg Neuts % (Manual) Lymphocytes % (Manual) Seg Neutrophils # 7.8 H Seg Neutrophils # Man Lymphocytes # (Manual) PT INR POC ABG pCO2 VBG pH Sodium Potassium Chloride Carbon Dioxide BUN Creatinine Glucose POC Glucose 284 H 262 H Lactic Acid Calcium Ionized Calcium Phosphorus Magnesium AST Total Creatine Kinase C-Reactive Protein Total Protein Albumin TSH Free T4 PTH Intact Urine WBC (Auto) Urine Creatinine Salicylates Acetaminophen 11/12/18 11/12/18 11/12/18 04:51 05:24 09:54 WBC RBC Hgb Hct RDW Plt Count Lymph % (Auto) [place] % (Auto) Lymph # Seg Neutrophils % Seg Neuts % (Manual) Lymphocytes % (Manual) Seg Neutrophils # Seg Neutrophils # Man Lymphocytes # (Manual) PT INR POC ABG pCO2 VBG pH Sodium Potassium Chloride 109.1 H Carbon Dioxide BUN 24 H Creatinine Glucose 334 H POC Glucose 335 H 288 H Lactic Acid Calcium 8.2 L Ionized Calcium Phosphorus Magnesium AST Total Creatine Kinase C-Reactive Protein Total Protein 5.5 L Albumin 1.8 L TSH Free T4 PTH Intact Urine WBC (Auto) Urine Creatinine Salicylates Acetaminophen 11/12/18 11/12/18 11/12/18 13:16 16:41 20:58 WBC RBC Hgb Hct RDW Plt Count Lymph % (Auto) [place] % (Auto) Lymph # Seg Neutrophils % Seg Neuts % (Manual) Lymphocytes % (Manual) Seg Neutrophils # Seg Neutrophils # Man Lymphocytes # (Manual) PT INR POC ABG pCO2 VBG pH Sodium Potassium Chloride Carbon Dioxide BUN Creatinine Glucose POC Glucose 245 H 343 H 403 H Lactic Acid Calcium Ionized Calcium Phosphorus Magnesium AST Total Creatine Kinase C-Reactive Protein Total Protein Albumin TSH Free T4 PTH Intact Urine WBC (Auto) Urine Creatinine Salicylates Acetaminophen 11/13/18 11/13/18 11/13/18 00:21 04:15 04:15 WBC RBC 3.15 L Hgb 9.6 L Hct 28.0 L RDW Plt Count 633 H Lymph % (Auto) 8.8 L [place] % (Auto) 7.6 H Lymph # 0.7 L Seg Neutrophils % 82.2 H Seg Neuts % (Manual) Lymphocytes % (Manual) Seg Neutrophils # Seg Neutrophils # Man Lymphocytes # (Manual) PT INR POC ABG pCO2 VBG pH Sodium 148 H Potassium Chloride 110.1 H Carbon Dioxide BUN 26 H Creatinine Glucose 337 H POC Glucose 391 H Lactic Acid Calcium 8.0 L Ionized Calcium Phosphorus Magnesium AST Total Creatine Kinase C-Reactive Protein Total Protein 5.7 L Albumin 1.8 L TSH Free T4 PTH Intact Urine WBC (Auto) Urine Creatinine Salicylates Acetaminophen 11/13/18 11/13/18 11/13/18 04:32 09:08 17:04 WBC RBC Hgb Hct RDW Plt Count Lymph % (Auto) [place] % (Auto) Lymph # Seg Neutrophils % Seg Neuts % (Manual) Lymphocytes % (Manual) Seg Neutrophils # Seg Neutrophils # Man Lymphocytes # (Manual) PT INR POC ABG pCO2 VBG pH Sodium Potassium Chloride Carbon Dioxide BUN Creatinine Glucose POC Glucose 350 H 285 H 345 H Lactic Acid Calcium Ionized Calcium Phosphorus Magnesium AST Total Creatine Kinase C-Reactive Protein Total Protein Albumin TSH Free T4 PTH Intact Urine WBC (Auto) Urine Creatinine Salicylates Acetaminophen 11/13/18 11/14/18 11/14/18 21:13 01:16 02:38 WBC RBC Hgb Hct RDW Plt Count Lymph % (Auto) [place] % (Auto) Lymph # Seg Neutrophils % Seg Neuts % (Manual) Lymphocytes % (Manual) Seg Neutrophils # Seg Neutrophils # Man Lymphocytes # (Manual) PT INR POC ABG pCO2 VBG pH Sodium 147 H Potassium 5.1 H D Chloride 107.3 H Carbon Dioxide BUN 27 H Creatinine 0.7 L Glucose 298 H POC Glucose 338 H 311 H Lactic Acid Calcium 7.7 L Ionized Calcium Phosphorus Magnesium AST Total Creatine Kinase C-Reactive Protein Total Protein Albumin TSH Free T4 PTH Intact Urine WBC (Auto) Urine Creatinine Salicylates Acetaminophen 11/14/18 11/14/18 11/14/18 05:22 09:09 14:21 WBC RBC Hgb Hct RDW Plt Count Lymph % (Auto) [place] % (Auto) Lymph # Seg Neutrophils % Seg Neuts % (Manual) Lymphocytes % (Manual) Seg Neutrophils # Seg Neutrophils # Man Lymphocytes # (Manual) PT INR POC ABG pCO2 VBG pH Sodium Potassium Chloride Carbon Dioxide BUN Creatinine Glucose POC Glucose 250 H 266 H 270 H Lactic Acid Calcium Ionized Calcium Phosphorus Magnesium AST Total Creatine Kinase C-Reactive Protein Total Protein Albumin TSH Free T4 PTH Intact Urine WBC (Auto) Urine Creatinine Salicylates Acetaminophen 11/14/18 11/14/18 11/15/18 17:06 21:08 01:16 WBC RBC Hgb Hct RDW Plt Count Lymph % (Auto) [place] % (Auto) Lymph # Seg Neutrophils % Seg Neuts % (Manual) Lymphocytes % (Manual) Seg Neutrophils # Seg Neutrophils # Man Lymphocytes # (Manual) PT INR POC ABG pCO2 VBG pH Sodium Potassium Chloride Carbon Dioxide BUN Creatinine Glucose POC Glucose 264 H 257 H 214 H Lactic Acid Calcium Ionized Calcium Phosphorus Magnesium AST Total Creatine Kinase C-Reactive Protein Total Protein Albumin TSH Free T4 PTH Intact Urine WBC (Auto) Urine Creatinine Salicylates Acetaminophen 11/15/18 11/15/18 11/15/18 03:58 03:58 05:01 WBC RBC 3.03 L Hgb 9.2 L Hct 26.8 L RDW 13.1 L Plt Count 831 H Lymph % (Auto) [place] % (Auto) 7.5 H Lymph # Seg Neutrophils % 75.0 H Seg Neuts % (Manual) Lymphocytes % (Manual) Seg Neutrophils # Seg Neutrophils # Man Lymphocytes # (Manual) PT INR POC ABG pCO2 VBG pH Sodium 148 H Potassium Chloride 108.5 H Carbon Dioxide 31 H BUN 22 H Creatinine 0.7 L Glucose 184 H POC Glucose 160 H Lactic Acid Calcium 8.3 L Ionized Calcium Phosphorus Magnesium AST Total Creatine Kinase C-Reactive Protein Total Protein 5.6 L Albumin 2.2 L TSH Free T4 PTH Intact Urine WBC (Auto) Urine Creatinine Salicylates Acetaminophen 11/15/18 11/15/18 11/15/18 09:12 14:47 16:38 WBC RBC Hgb Hct RDW Plt Count Lymph % (Auto) [place] % (Auto) Lymph # Seg Neutrophils % Seg Neuts % (Manual) Lymphocytes % (Manual) Seg Neutrophils # Seg Neutrophils # Man Lymphocytes # (Manual) PT INR POC ABG pCO2 VBG pH Sodium Potassium Chloride Carbon Dioxide BUN Creatinine Glucose POC Glucose 139 H 221 H 259 H Lactic Acid Calcium Ionized Calcium Phosphorus Magnesium AST Total Creatine Kinase C-Reactive Protein Total Protein Albumin TSH Free T4 PTH Intact Urine WBC (Auto) Urine Creatinine Salicylates Acetaminophen 11/15/18 11/16/18 11/16/18 21:17 00:53 04:41 WBC RBC Hgb Hct RDW Plt Count Lymph % (Auto) [place] % (Auto) Lymph # Seg Neutrophils % Seg Neuts % (Manual) Lymphocytes % (Manual) Seg Neutrophils # Seg Neutrophils # Man Lymphocytes # (Manual) PT INR POC ABG pCO2 VBG pH Sodium Potassium Chloride Carbon Dioxide 31 H BUN Creatinine 0.6 L Glucose 142 H POC Glucose 187 H 183 H Lactic Acid Calcium 8.1 L Ionized Calcium Phosphorus Magnesium AST Total Creatine Kinase C-Reactive Protein Total Protein 5.6 L Albumin 2.3 L TSH Free T4 PTH Intact Urine WBC (Auto) Urine Creatinine Salicylates Acetaminophen 11/16/18 11/16/18 11/16/18 04:46 10:01 13:09 WBC RBC Hgb Hct RDW Plt Count Lymph % (Auto) [place] % (Auto) Lymph # Seg Neutrophils % Seg Neuts % (Manual) Lymphocytes % (Manual) Seg Neutrophils # Seg Neutrophils # Man Lymphocytes # (Manual) PT INR POC ABG pCO2 VBG pH Sodium Potassium Chloride Carbon Dioxide BUN Creatinine Glucose POC Glucose 135 H 270 H 221 H Lactic Acid Calcium Ionized Calcium Phosphorus Magnesium AST Total Creatine Kinase C-Reactive Protein Total Protein Albumin TSH Free T4 PTH Intact Urine WBC (Auto) Urine Creatinine Salicylates Acetaminophen 11/16/18 11/16/18 11/17/18 17:06 21:54 01:52 WBC RBC Hgb Hct RDW Plt Count Lymph % (Auto) [place] % (Auto) Lymph # Seg Neutrophils % Seg Neuts % (Manual) Lymphocytes % (Manual) Seg Neutrophils # Seg Neutrophils # Man Lymphocytes # (Manual) PT INR POC ABG pCO2 VBG pH Sodium Potassium Chloride Carbon Dioxide BUN Creatinine Glucose POC Glucose 226 H 148 H 152 H Lactic Acid Calcium Ionized Calcium Phosphorus Magnesium AST Total Creatine Kinase C-Reactive Protein Total Protein Albumin TSH Free T4 PTH Intact Urine WBC (Auto) Urine Creatinine Salicylates Acetaminophen 11/17/18 11/17/18 11/17/18 04:48 05:31 07:48 WBC RBC Hgb Hct RDW Plt Count Lymph % (Auto) [place] % (Auto) Lymph # Seg Neutrophils % Seg Neuts % (Manual) Lymphocytes % (Manual) Seg Neutrophils # Seg Neutrophils # Man Lymphocytes # (Manual) PT INR POC ABG pCO2 VBG pH Sodium Potassium Chloride Carbon Dioxide BUN Creatinine 0.6 L Glucose 175 H POC Glucose 140 H 154 H Lactic Acid Calcium 8.0 L Ionized Calcium Phosphorus Magnesium AST Total Creatine Kinase C-Reactive Protein Total Protein 5.6 L Albumin 2.3 L TSH Free T4 PTH Intact Urine WBC (Auto) Urine Creatinine Salicylates Acetaminophen 11/17/18 11/17/18 11/17/18 11:30 16:50 21:48 WBC RBC Hgb Hct RDW Plt Count Lymph % (Auto) [place] % (Auto) Lymph # Seg Neutrophils % Seg Neuts % (Manual) Lymphocytes % (Manual) Seg Neutrophils # Seg Neutrophils # Man Lymphocytes # (Manual) PT INR POC ABG pCO2 VBG pH Sodium Potassium Chloride Carbon Dioxide BUN Creatinine Glucose POC Glucose 256 H 398 H 362 H Lactic Acid Calcium Ionized Calcium Phosphorus Magnesium AST Total Creatine Kinase C-Reactive Protein Total Protein Albumin TSH Free T4 PTH Intact Urine WBC (Auto) Urine Creatinine Salicylates Acetaminophen 11/18/18 11/18/18 11/18/18 02:08 05:26 12:05 WBC RBC Hgb Hct RDW Plt Count Lymph % (Auto) [place] % (Auto) Lymph # Seg Neutrophils % Seg Neuts % (Manual) Lymphocytes % (Manual) Seg Neutrophils # Seg Neutrophils # Man Lymphocytes # (Manual) PT INR POC ABG pCO2 VBG pH Sodium Potassium Chloride Carbon Dioxide BUN Creatinine Glucose POC Glucose 316 H 207 H 189 H Lactic Acid Calcium Ionized Calcium Phosphorus Magnesium AST Total Creatine Kinase C-Reactive Protein Total Protein Albumin TSH Free T4 PTH Intact Urine WBC (Auto) Urine Creatinine Salicylates Acetaminophen 11/18/18 11/18/18 11/19/18 17:08 20:12 00:08 WBC RBC Hgb Hct RDW Plt Count Lymph % (Auto) [place] % (Auto) Lymph # Seg Neutrophils % Seg Neuts % (Manual) Lymphocytes % (Manual) Seg Neutrophils # Seg Neutrophils # Man Lymphocytes # (Manual) PT INR POC ABG pCO2 VBG pH Sodium Potassium Chloride Carbon Dioxide BUN Creatinine Glucose POC Glucose 193 H 235 H 223 H Lactic Acid Calcium Ionized Calcium Phosphorus Magnesium AST Total Creatine Kinase C-Reactive Protein Total Protein Albumin TSH Free T4 PTH Intact Urine WBC (Auto) Urine Creatinine Salicylates Acetaminophen 11/19/18 11/19/18 11/19/18 04:18 07:43 08:02 WBC RBC Hgb Hct RDW Plt Count Lymph % (Auto) [place] % (Auto) Lymph # Seg Neutrophils % Seg Neuts % (Manual) Lymphocytes % (Manual) Seg Neutrophils # Seg Neutrophils # Man Lymphocytes # (Manual) PT INR POC ABG pCO2 VBG pH Sodium Potassium Chloride Carbon Dioxide BUN Creatinine Glucose 72 L POC Glucose 155 H 49 L Lactic Acid Calcium Ionized Calcium Phosphorus Magnesium AST Total Creatine Kinase C-Reactive Protein Total Protein Albumin TSH Free T4 PTH Intact Urine WBC (Auto) Urine Creatinine Salicylates Acetaminophen Allied health notes reviewed: nursing
[2018-11-19] MEDS: PROTONIX PO SCH (14:06)
[2018-11-19] MEDS: LANTUS SUB-Q SCH (22:08)
[2018-11-20] MEDS: HumaLOG SUB-Q SCH ×6 (01:26→21:30)
--- NOTE | 2018-11-20 08:52 | Progress Note ---
Assessment and Plan 53 YO Male with DM presents to ED for evaluation. Pt is stuporous st time of my exam and unable to provide history. Pt history taken from EMS as well as ED staff. As per staff, the patient found down and unresponsive in his home. Pt last contact with family was 5 days ago. At that time the patient was in his usual state of health. A well check was conducted, and the patient was unable to answer the door. Law Enforcement was contacted, and gained entry into the home. The patient was subsequently found down, and unresponsive and lying on the kitchen floor covered in fecal matter. EMS notified, and upon arrival the patient was found to have a serum glucose above 500, and in distress. Pt transported to [facility]. Pt seen and evaluated in ED and found to have DKA, Metabolic Encephalopathy, Sepsis suspected secondary to UTI, Rhabdomyolysis, Acidosis, and Acute Kidney Injury. Pt admitted to ICU and initiated on Sepsis protocol, as well as DKA protocol. Nephrology consulted in ED. Pulmonary team consulted in ED. No further history obtainable. No prior admission for review. No medication listed at time of admission for reconciliation. Patient was then admitted and commenced on DKA protocol. Glucose 1088 on admit, now 195. BUN 200 on admit, now 98. Found to be hypernatremic with improved glycemic control. Low T4 and elevated TSH levels - Metabolic encephalopathy - improving. Follows all commands - Debilitation from prolonged illness PT/OT - Sepsis - resolved Dysphagia - resolved Video fluoroscopic swallow showed no evidence of aspiration Tolerating regular diet - Fever and white count since resolved. Unclear etiology of sepsis as all cultures are negative. Possible UTI, UA with pyuria but otherwise not significant. UCx negative. Levaquin d/teofilo - T2DM s/p resolved DKA. Continue with SSI Accu-Check had blood glucose of 70s yesterday Consistent CHO diet Decrease Lantus to 20 unit qhs - JAVY due to vasomotor nephropathy - improving IV hydration Nephrology consulted and following - Hypernatremia -improved continue free water via NG tube - Hypothyroidism Supplement thyroid - Severe Protein calorie malnutrition Dietary consult - UTI off levofloxacin. Urine Cx no growth so far - DVT and GI prophylaxis with Lovenox and Omeprazole - CODE STATUS: Patient is full code - Disposition: Discussed with [facility]. [facility] Transfer to SNF for PT whenever bed is available - Time spent: 25 min minutes Subjective Date of service: 11/20/18 Principal diagnosis: Ac hypoxemic resp failure; Severe sepsis; DKA; JAVY; Ac encephalopathy; UTI Interval history: Patient seen and examined. Alert and oriented x 3. Moved his arms but weak on his lower extremities. Able to seat on the edge of the bed not cannot ambulate on by himself Objective - Exam Narrative Exam: Constitutional: Alert and oriented x 3.Very interactive. Weak Head: Normocephalic atraumatic Eyes: Pupils are equal round and reactive to light Nose: No enlarged turbinates, no septal deviation. Mouth: Moist mucous membranes. ON NGT feeding Neck: Supple no thyromegaly. No bruit. No JVD Heart: Regular rate and rhythm, S1-S2 normal. No rubs murmurs or gallop Lungs: Clear to auscultation bilaterally. no rales or rhonchi Abdomen: Soft, nontender. Bowel sound are present. Extremities: No edema, no cyanosis, no clubbing. skin ulcers Neuro:AxO x3 . Answers all short question appropriately. weak only in both LEs Skin: Skin ulcer in the lower extrmities Musculoskeletal system: No joint pain or swelling Hematological: No petechia or subcutanous hemorrhages. Immunological: No multiple septic spots on the skin Lymphatic: No generalized lymphadenopathy Psychiatry: No depression - Constitutional Vitals: Vital Signs - 12hr 11/19/18 11/20/18 23:43 05:21 Temperature 98.7 F 98.8 F Pulse Rate 90 87 Respiratory 20 18 Rate Blood Pressure 147/87 131/83 O2 Sat by Pulse 97 96 Oximetry - Labs CBC & Chem 7: 11/15/18 03:58 11/19/18 08:02 Labs: Abnormal lab results 11/19/18 11/19/18 11/19/18 Range/Units 11:56 16:44 22:00 POC Glucose 212 H 251 H 270 H (70-105) 11/20/18 11/20/18 Range/Units 01:14 05:28 POC Glucose 192 H 150 H (70-105)
[2018-11-20] MEDS: FLOMAX PO SCH (10:58)
[2018-11-20] MEDS: PROTONIX PO SCH (10:58)
[2018-11-20] MEDS: HEPARIN SUB-Q SCH ×2 (10:58→22:38)
[2018-11-20] MEDS: SODIUM CHLORIDE FLUSH SYRINGE 10 ML IV SCH ×2 (10:59→22:39)
--- NOTE | 2018-11-20 14:48 | Progress Note ---
Assessment and Plan Patient is awake. Resting on room air. O2 saturation 98% on room air. No complaint of chest pain, shortness of breath or cough. Patient is awaiting discharge to rehab. - Patient Problems (1) ARF (acute renal failure) Current Visit: Yes Status: Acute Plan to address problem: Management as per nephrology. (2) Acidosis Current Visit: Yes Status: Acute Plan to address problem: Improved. Repeat blood gases ordered, but not done. (3) DKA (diabetic ketoacidoses) Current Visit: Yes Status: Acute Plan to address problem: Improved. Management as per primary care. (4) Hypothyroidism Current Visit: Yes Status: Acute Qualifiers: Hypothyroidism type: unspecified Qualified Code(s): E03.9 - Hypothyroidism, unspecified Plan to address problem: Management as per primary care. Subjective Date of service: 11/20/18 Principal diagnosis: Ac hypoxemic resp failure; Severe sepsis; DKA; JAVY; Ac encephalopathy; UTI Interval history: Patient is awake. Resting on room air. O2 saturation 98% on room air. No complaint of chest pain, shortness of breath or cough. Patient is awaiting discharge to rehab. Objective Vital Signs - 12hr 11/20/18 11/20/18 05:21 12:23 Temperature 98.8 F 98.1 F Pulse Rate 87 86 Respiratory 18 20 Rate Blood Pressure 131/83 144/87 O2 Sat by Pulse 96 98 Oximetry Constitutional: no acute distress, alert, other (middle aged normocephalic and atraumatic AAM) Eyes: non-icteric ENT: oropharynx moist, other (mallampati 2) Neck: supple, no lymphadenopathy, no JVD Effort: normal Ascultation: Bilateral: diminished breath sounds, rhonchi Percussion: Bilateral: not dull Cardiovascular: regular rate and rhythm Gastrointestinal: normoactive bowel sounds, soft, non-tender, non-distended Integumentary: normal Extremities: no cyanosis, no edema, pulses normal, no ischemia or petechiae Neurologic: non-focal exam, pupils equal and round, CN II-XII normal, other (weak, deconditioned) Psychiatric: mood appropriate, affect normal CBC and BMP: 11/15/18 03:58 11/19/18 08:02 ABG, PT/INR, D-dimer: ABG POC ABG pH 7.432 (7.35-7.45) 11/05/18 17:08 POC ABG pCO2 32.3 (35-45) L 11/05/18 17:08 POC ABG HCO3 21.5 (22-26 mml/L) 11/05/18 17:08 POC ABG Total CO2 23 (23-27mmol/L) 11/05/18 17:08 POC ABG O2 Sat 85 11/05/18 17:08 PT/INR, D-dimer PT 15.6 Sec. (12.2-14.9) H 11/04/18 16:05 INR 1.27 (0.87-1.13) H 11/04/18 16:05 Abnormal lab findings: Abnormal Labs 11/04/18 11/04/18 11/04/18 15:23 15:35 16:05 WBC 12.6 H RBC Hgb Hct RDW Plt Count Lymph % (Auto) [place] % (Auto) Lymph # Seg Neutrophils % Seg Neuts % (Manual) 84.0 H Lymphocytes % (Manual) 1.0 L Seg Neutrophils # Seg Neutrophils # Man 10.6 H Lymphocytes # (Manual) 0.1 L PT INR POC ABG pCO2 VBG pH Sodium Potassium Chloride Carbon Dioxide BUN Creatinine Glucose POC Glucose > 500 H Lactic Acid Calcium Ionized Calcium Phosphorus Magnesium AST Total Creatine Kinase C-Reactive Protein Total Protein Albumin TSH Free T4 PTH Intact Urine WBC (Auto) 12.0 H Urine Creatinine Salicylates Acetaminophen 11/04/18 11/04/18 11/04/18 16:05 16:05 16:05 WBC RBC Hgb Hct RDW Plt Count Lymph % (Auto) [place] % (Auto) Lymph # Seg Neutrophils % Seg Neuts % (Manual) Lymphocytes % (Manual) Seg Neutrophils # Seg Neutrophils # Man Lymphocytes # (Manual) PT 15.6 H INR 1.27 H POC ABG pCO2 VBG pH Sodium 153 H Potassium 6.2 H* Chloride Carbon Dioxide 18 L BUN 200 H Creatinine 6.8 H Glucose 1088 H* POC Glucose Lactic Acid 2.80 H* Calcium 7.2 L Ionized Calcium Phosphorus Magnesium AST Total Creatine Kinase C-Reactive Protein Total Protein Albumin 3.1 L TSH Free T4 PTH Intact Urine WBC (Auto) Urine Creatinine Salicylates Acetaminophen 11/04/18 11/04/18 11/04/18 16:05 16:05 16:05 WBC RBC Hgb Hct RDW Plt Count Lymph % (Auto) [place] % (Auto) Lymph # Seg Neutrophils % Seg Neuts % (Manual) Lymphocytes % (Manual) Seg Neutrophils # Seg Neutrophils # Man Lymphocytes # (Manual) PT INR POC ABG pCO2 VBG pH 7.245 L Sodium Potassium Chloride Carbon Dioxide BUN Creatinine Glucose POC Glucose Lactic Acid Calcium Ionized Calcium Phosphorus 13.80 H Magnesium 3.60 H AST Total Creatine Kinase C-Reactive Protein Total Protein Albumin TSH 0.169 L Free T4 0.68 L PTH Intact Urine WBC (Auto) Urine Creatinine Salicylates Acetaminophen 11/04/18 11/04/18 11/04/18 16:05 16:48 19:40 WBC RBC Hgb Hct RDW Plt Count Lymph % (Auto) [place] % (Auto) Lymph # Seg Neutrophils % Seg Neuts % (Manual) Lymphocytes % (Manual) Seg Neutrophils # Seg Neutrophils # Man Lymphocytes # (Manual) PT INR POC ABG pCO2 VBG pH Sodium Potassium Chloride Carbon Dioxide BUN Creatinine Glucose POC Glucose > 500 H 458 H Lactic Acid Calcium Ionized Calcium Phosphorus Magnesium AST Total Creatine Kinase 1857 H C-Reactive Protein Total Protein Albumin TSH Free T4 PTH Intact Urine WBC (Auto) Urine Creatinine Salicylates Acetaminophen 11/04/18 11/04/18 11/04/18 20:29 20:29 20:29 WBC RBC Hgb Hct RDW Plt Count Lymph % (Auto) [place] % (Auto) Lymph # Seg Neutrophils % Seg Neuts % (Manual) Lymphocytes % (Manual) Seg Neutrophils # Seg Neutrophils # Man Lymphocytes # (Manual) PT INR POC ABG pCO2 VBG pH Sodium 163 H* D Potassium Chloride 121.4 H Carbon Dioxide 21 L BUN 166 H Creatinine 5.6 H Glucose 513 H* POC Glucose Lactic Acid 3.30 H* 3.30 H* Calcium 6.4 L Ionized Calcium Phosphorus Magnesium AST Total Creatine Kinase C-Reactive Protein Total Protein Albumin TSH Free T4 PTH Intact Urine WBC (Auto) Urine Creatinine Salicylates Acetaminophen 11/04/18 11/04/18 11/04/18 20:55 21:03 22:00 WBC RBC Hgb Hct RDW Plt Count Lymph % (Auto) [place] % (Auto) Lymph # Seg Neutrophils % Seg Neuts % (Manual) Lymphocytes % (Manual) Seg Neutrophils # Seg Neutrophils # Man Lymphocytes # (Manual) PT INR POC ABG pCO2 VBG pH Sodium Potassium Chloride Carbon Dioxide BUN Creatinine Glucose POC Glucose 496 H Lactic Acid 3.60 H* Calcium Ionized Calcium Phosphorus Magnesium AST Total Creatine Kinase C-Reactive Protein Total Protein Albumin TSH Free T4 PTH Intact Urine WBC (Auto) Urine Creatinine 58.1 H Salicylates Acetaminophen 11/04/18 11/04/18 11/04/18 22:04 23:07 23:47 WBC RBC Hgb Hct RDW Plt Count Lymph % (Auto) [place] % (Auto) Lymph # Seg Neutrophils % Seg Neuts % (Manual) Lymphocytes % (Manual) Seg Neutrophils # Seg Neutrophils # Man Lymphocytes # (Manual) PT INR POC ABG pCO2 VBG pH Sodium 170 H* Potassium Chloride 127.1 H Carbon Dioxide BUN 164 H Creatinine 5.2 H Glucose 213 H POC Glucose 357 H 306 H Lactic Acid Calcium 6.5 L Ionized Calcium Phosphorus Magnesium AST Total Creatine Kinase C-Reactive Protein Total Protein Albumin TSH Free T4 PTH Intact Urine WBC (Auto) Urine Creatinine Salicylates Acetaminophen 11/04/18 11/05/18 11/05/18 23:47 00:04 00:09 WBC RBC Hgb Hct RDW Plt Count Lymph % (Auto) [place] % (Auto) Lymph # Seg Neutrophils % Seg Neuts % (Manual) Lymphocytes % (Manual) Seg Neutrophils # Seg Neutrophils # Man Lymphocytes # (Manual) PT INR POC ABG pCO2 VBG pH Sodium 163 H* Potassium Chloride 127.5 H Carbon Dioxide BUN 117 H Creatinine 3.3 H Glucose 235 H POC Glucose 219 H Lactic Acid 3.20 H* Calcium 6.8 L Ionized Calcium Phosphorus Magnesium AST Total Creatine Kinase C-Reactive Protein Total Protein Albumin TSH Free T4 PTH Intact Urine WBC (Auto) Urine Creatinine Salicylates Acetaminophen 11/05/18 11/05/18 11/05/18 00:59 03:13 03:52 WBC RBC Hgb Hct RDW Plt Count Lymph % (Auto) [place] % (Auto) Lymph # Seg Neutrophils % Seg Neuts % (Manual) Lymphocytes % (Manual) Seg Neutrophils # Seg Neutrophils # Man Lymphocytes # (Manual) PT INR POC ABG pCO2 VBG pH Sodium Potassium Chloride Carbon Dioxide BUN Creatinine Glucose POC Glucose 204 H 124 H Lactic Acid Calcium Ionized Calcium Phosphorus Magnesium AST Total Creatine Kinase 1680 H C-Reactive Protein Total Protein Albumin TSH Free T4 PTH Intact Urine WBC (Auto) Urine Creatinine Salicylates Acetaminophen 11/05/18 11/05/18 11/05/18 03:52 04:25 05:11 WBC RBC Hgb Hct RDW Plt Count Lymph % (Auto) [place] % (Auto) Lymph # Seg Neutrophils % Seg Neuts % (Manual) Lymphocytes % (Manual) Seg Neutrophils # Seg Neutrophils # Man Lymphocytes # (Manual) PT INR POC ABG pCO2 VBG pH Sodium 169 H* Potassium Chloride 126.2 H Carbon Dioxide BUN 156 H Creatinine 4.7 H Glucose 128 H POC Glucose 150 H 173 H Lactic Acid Calcium 6.3 L Ionized Calcium Phosphorus Magnesium AST Total Creatine Kinase C-Reactive Protein Total Protein Albumin TSH Free T4 PTH Intact Urine WBC (Auto) Urine Creatinine Salicylates Acetaminophen 11/05/18 11/05/18 11/05/18 06:05 06:58 07:48 WBC RBC Hgb Hct RDW Plt Count Lymph % (Auto) [place] % (Auto) Lymph # Seg Neutrophils % Seg Neuts % (Manual) Lymphocytes % (Manual) Seg Neutrophils # Seg Neutrophils # Man Lymphocytes # (Manual) PT INR POC ABG pCO2 VBG pH Sodium Potassium Chloride Carbon Dioxide BUN Creatinine Glucose POC Glucose 136 H 152 H 177 H Lactic Acid Calcium Ionized Calcium Phosphorus Magnesium AST Total Creatine Kinase C-Reactive Protein Total Protein Albumin TSH Free T4 PTH Intact Urine WBC (Auto) Urine Creatinine Salicylates Acetaminophen 11/05/18 11/05/18 11/05/18 08:21 08:21 08:23 WBC RBC Hgb Hct RDW Plt Count Lymph % (Auto) [place] % (Auto) Lymph # Seg Neutrophils % Seg Neuts % (Manual) Lymphocytes % (Manual) Seg Neutrophils # Seg Neutrophils # Man Lymphocytes # (Manual) PT INR POC ABG pCO2 VBG pH Sodium 171 H* Potassium Chloride 128.9 H Carbon Dioxide BUN 149 H Creatinine 4.5 H Glucose 159 H POC Glucose 157 H Lactic Acid Calcium 6.7 L Ionized Calcium Phosphorus Magnesium AST Total Creatine Kinase C-Reactive Protein Total Protein Albumin TSH Free T4 PTH Intact 119.3 H Urine WBC (Auto) Urine Creatinine Salicylates Acetaminophen 11/05/18 11/05/18 11/05/18 10:21 11:12 12:37 WBC RBC Hgb Hct RDW Plt Count Lymph % (Auto) [place] % (Auto) Lymph # Seg Neutrophils % Seg Neuts % (Manual) Lymphocytes % (Manual) Seg Neutrophils # Seg Neutrophils # Man Lymphocytes # (Manual) PT INR POC ABG pCO2 VBG pH Sodium Potassium Chloride Carbon Dioxide BUN Creatinine Glucose POC Glucose 171 H 155 H 145 H Lactic Acid Calcium Ionized Calcium Phosphorus Magnesium AST Total Creatine Kinase C-Reactive Protein Total Protein Albumin TSH Free T4 PTH Intact Urine WBC (Auto) Urine Creatinine Salicylates Acetaminophen 11/05/18 11/05/18 11/05/18 13:24 13:47 14:42 WBC RBC Hgb Hct RDW Plt Count Lymph % (Auto) [place] % (Auto) Lymph # Seg Neutrophils % Seg Neuts % (Manual) Lymphocytes % (Manual) Seg Neutrophils # Seg Neutrophils # Man Lymphocytes # (Manual) PT INR POC ABG pCO2 VBG pH Sodium 167 H* Potassium Chloride 131.6 H Carbon Dioxide BUN 130 H Creatinine 3.8 H Glucose 136 H POC Glucose 137 H 133 H Lactic Acid Calcium 6.4 L Ionized Calcium Phosphorus Magnesium AST Total Creatine Kinase C-Reactive Protein Total Protein Albumin TSH Free T4 PTH Intact Urine WBC (Auto) Urine Creatinine Salicylates Acetaminophen 11/05/18 11/05/18 11/05/18 16:55 17:08 18:14 WBC RBC Hgb Hct RDW Plt Count Lymph % (Auto) [place] % (Auto) Lymph # Seg Neutrophils % Seg Neuts % (Manual) Lymphocytes % (Manual) Seg Neutrophils # Seg Neutrophils # Man Lymphocytes # (Manual) PT INR POC ABG pCO2 32.3 L VBG pH Sodium Potassium Chloride Carbon Dioxide BUN Creatinine Glucose POC Glucose 194 H 195 H Lactic Acid Calcium Ionized Calcium Phosphorus Magnesium AST Total Creatine Kinase C-Reactive Protein Total Protein Albumin TSH Free T4 PTH Intact Urine WBC (Auto) Urine Creatinine Salicylates Acetaminophen 11/05/18 11/05/18 11/05/18 18:35 18:35 18:35 WBC RBC Hgb Hct RDW Plt Count Lymph % (Auto) [place] % (Auto) Lymph # Seg Neutrophils % Seg Neuts % (Manual) Lymphocytes % (Manual) Seg Neutrophils # Seg Neutrophils # Man Lymphocytes # (Manual) PT INR POC ABG pCO2 VBG pH Sodium Potassium Chloride Carbon Dioxide BUN Creatinine Glucose POC Glucose Lactic Acid Calcium Ionized Calcium Phosphorus Magnesium AST Total Creatine Kinase C-Reactive Protein 19.50 H Total Protein Albumin TSH Free T4 PTH Intact Urine WBC (Auto) Urine Creatinine Salicylates < 0.3 L Acetaminophen < 5.0 L 11/05/18 11/06/18 11/06/18 21:09 01:36 04:50 WBC RBC Hgb 11.3 L Hct 32.8 L D RDW Plt Count 110 L Lymph % (Auto) [place] % (Auto) Lymph # Seg Neutrophils % Seg Neuts % (Manual) Lymphocytes % (Manual) Seg Neutrophils # Seg Neutrophils # Man Lymphocytes # (Manual) PT INR POC ABG pCO2 VBG pH Sodium Potassium Chloride Carbon Dioxide BUN Creatinine Glucose POC Glucose 250 H 289 H Lactic Acid Calcium Ionized Calcium Phosphorus Magnesium AST Total Creatine Kinase C-Reactive Protein Total Protein Albumin TSH Free T4 PTH Intact Urine WBC (Auto) Urine Creatinine Salicylates Acetaminophen 11/06/18 11/06/18 11/06/18 04:50 04:50 05:14 WBC RBC Hgb Hct RDW Plt Count Lymph % (Auto) [place] % (Auto) Lymph # Seg Neutrophils % Seg Neuts % (Manual) Lymphocytes % (Manual) Seg Neutrophils # Seg Neutrophils # Man Lymphocytes # (Manual) PT INR POC ABG pCO2 VBG pH Sodium 165 H* 164 H* Potassium Chloride 127.4 H Carbon Dioxide BUN 113 H Creatinine 3.2 H Glucose 208 H POC Glucose 215 H Lactic Acid Calcium 6.8 L Ionized Calcium Phosphorus Magnesium AST 55 H Total Creatine Kinase C-Reactive Protein Total Protein 5.2 L D Albumin 2.3 L TSH Free T4 PTH Intact Urine WBC (Auto) Urine Creatinine Salicylates Acetaminophen 11/06/18 11/06/18 11/06/18 07:50 08:50 12:16 WBC RBC Hgb Hct RDW Plt Count Lymph % (Auto) [place] % (Auto) Lymph # Seg Neutrophils % Seg Neuts % (Manual) Lymphocytes % (Manual) Seg Neutrophils # Seg Neutrophils # Man Lymphocytes # (Manual) PT INR POC ABG pCO2 VBG pH Sodium 161 H* Potassium Chloride 126.0 H Carbon Dioxide BUN 111 H Creatinine 3.0 H Glucose 187 H POC Glucose 239 H 198 H Lactic Acid Calcium 7.0 L Ionized Calcium Phosphorus Magnesium AST Total Creatine Kinase C-Reactive Protein Total Protein Albumin TSH Free T4 PTH Intact Urine WBC (Auto) Urine Creatinine Salicylates Acetaminophen 11/06/18 11/06/18 11/06/18 15:42 15:42 17:59 WBC RBC Hgb Hct RDW Plt Count Lymph % (Auto) [place] % (Auto) Lymph # Seg Neutrophils % Seg Neuts % (Manual) Lymphocytes % (Manual) Seg Neutrophils # Seg Neutrophils # Man Lymphocytes # (Manual) PT INR POC ABG pCO2 VBG pH Sodium 162 H* Potassium Chloride 127.3 H Carbon Dioxide BUN 98 H Creatinine 2.7 H Glucose 195 H POC Glucose 225 H Lactic Acid Calcium 7.1 L Ionized Calcium 4.4 L Phosphorus Magnesium AST Total Creatine Kinase C-Reactive Protein Total Protein Albumin TSH Free T4 PTH Intact Urine WBC (Auto) Urine Creatinine Salicylates Acetaminophen 11/06/18 11/06/18 11/06/18 21:21 21:24 21:24 WBC RBC Hgb 11.0 L Hct 33.4 L RDW Plt Count Lymph % (Auto) [place] % (Auto) Lymph # Seg Neutrophils % Seg Neuts % (Manual) Lymphocytes % (Manual) Seg Neutrophils # Seg Neutrophils # Man Lymphocytes # (Manual) PT INR POC ABG pCO2 VBG pH Sodium Potassium Chloride Carbon Dioxide BUN Creatinine Glucose POC Glucose 272 H Lactic Acid Calcium Ionized Calcium Phosphorus Magnesium AST Total Creatine Kinase 3538 H C-Reactive Protein Total Protein Albumin TSH Free T4 PTH Intact Urine WBC (Auto) Urine Creatinine Salicylates Acetaminophen 11/07/18 11/07/18 11/07/18 02:01 04:13 04:13 WBC RBC Hgb 11.4 L Hct 33.8 L RDW Plt Count 103 L Lymph % (Auto) [place] % (Auto) Lymph # Seg Neutrophils % Seg Neuts % (Manual) 83.0 H Lymphocytes % (Manual) 6.0 L Seg Neutrophils # Seg Neutrophils # Man Lymphocytes # (Manual) 0.6 L PT INR POC ABG pCO2 VBG pH Sodium 161 H* Potassium Chloride 125.8 H Carbon Dioxide BUN 80 H Creatinine 2.4 H Glucose 246 H POC Glucose 282 H Lactic Acid Calcium 7.4 L Ionized Calcium Phosphorus Magnesium 2.50 H AST 106 H Total Creatine Kinase C-Reactive Protein Total Protein 5.7 L Albumin 2.0 L TSH Free T4 PTH Intact Urine WBC (Auto) Urine Creatinine Salicylates Acetaminophen 11/07/18 11/07/18 11/07/18 04:13 05:17 09:15 WBC RBC Hgb Hct RDW Plt Count Lymph % (Auto) [place] % (Auto) Lymph # Seg Neutrophils % Seg Neuts % (Manual) Lymphocytes % (Manual) Seg Neutrophils # Seg Neutrophils # Man Lymphocytes # (Manual) PT INR POC ABG pCO2 VBG pH Sodium Potassium Chloride Carbon Dioxide BUN Creatinine Glucose POC Glucose 256 H 287 H Lactic Acid Calcium Ionized Calcium Phosphorus Magnesium AST Total Creatine Kinase 2918 H C-Reactive Protein Total Protein Albumin TSH Free T4 PTH Intact Urine WBC (Auto) Urine Creatinine Salicylates Acetaminophen 11/07/18 11/07/18 11/07/18 13:27 15:10 16:38 WBC RBC Hgb 10.2 L Hct 31.2 L RDW Plt Count Lymph % (Auto) [place] % (Auto) Lymph # Seg Neutrophils % Seg Neuts % (Manual) Lymphocytes % (Manual) Seg Neutrophils # Seg Neutrophils # Man Lymphocytes # (Manual) PT INR POC ABG pCO2 VBG pH Sodium Potassium Chloride Carbon Dioxide BUN Creatinine Glucose POC Glucose 281 H 284 H Lactic Acid Calcium Ionized Calcium Phosphorus Magnesium AST Total Creatine Kinase C-Reactive Protein Total Protein Albumin TSH Free T4 PTH Intact Urine WBC (Auto) Urine Creatinine Salicylates Acetaminophen 11/07/18 11/07/18 11/08/18 21:08 21:41 01:24 WBC RBC Hgb 10.2 L Hct 30.8 L RDW Plt Count Lymph % (Auto) [place] % (Auto) Lymph # Seg Neutrophils % Seg Neuts % (Manual) Lymphocytes % (Manual) Seg Neutrophils # Seg Neutrophils # Man Lymphocytes # (Manual) PT INR POC ABG pCO2 VBG pH Sodium Potassium Chloride Carbon Dioxide BUN Creatinine Glucose POC Glucose 349 H 363 H Lactic Acid Calcium Ionized Calcium Phosphorus Magnesium AST Total Creatine Kinase C-Reactive Protein Total Protein Albumin TSH Free T4 PTH Intact Urine WBC (Auto) Urine Creatinine Salicylates Acetaminophen 11/08/18 11/08/18 11/08/18 04:30 04:30 04:30 WBC RBC 3.26 L Hgb 10.2 L Hct 29.9 L RDW Plt Count 103 L Lymph % (Auto) 7.7 L [place] % (Auto) 7.5 H Lymph # 0.8 L Seg Neutrophils % 83.6 H Seg Neuts % (Manual) Lymphocytes % (Manual) Seg Neutrophils # 8.6 H Seg Neutrophils # Man Lymphocytes # (Manual) PT INR POC ABG pCO2 VBG pH Sodium 157 H Potassium 3.5 L Chloride 119.8 H Carbon Dioxide BUN 52 H Creatinine 1.9 H Glucose 244 H POC Glucose Lactic Acid Calcium 7.3 L Ionized Calcium Phosphorus Magnesium AST 88 H Total Creatine Kinase 1829 H C-Reactive Protein Total Protein 4.4 L D Albumin 2.3 L TSH Free T4 PTH Intact Urine WBC (Auto) Urine Creatinine Salicylates Acetaminophen 11/08/18 11/08/18 11/08/18 05:34 09:12 14:20 WBC RBC Hgb Hct RDW Plt Count Lymph % (Auto) [place] % (Auto) Lymph # Seg Neutrophils % Seg Neuts % (Manual) Lymphocytes % (Manual) Seg Neutrophils # Seg Neutrophils # Man Lymphocytes # (Manual) PT INR POC ABG pCO2 VBG pH Sodium Potassium Chloride Carbon Dioxide BUN Creatinine Glucose POC Glucose 250 H 299 H 379 H Lactic Acid Calcium Ionized Calcium Phosphorus Magnesium AST Total Creatine Kinase C-Reactive Protein Total Protein Albumin TSH Free T4 PTH Intact Urine WBC (Auto) Urine Creatinine Salicylates Acetaminophen 11/08/18 11/08/18 11/08/18 14:40 17:14 21:59 WBC RBC Hgb 10.2 L Hct 30.8 L RDW Plt Count Lymph % (Auto) [place] % (Auto) Lymph # Seg Neutrophils % Seg Neuts % (Manual) Lymphocytes % (Manual) Seg Neutrophils # Seg Neutrophils # Man Lymphocytes # (Manual) PT INR POC ABG pCO2 VBG pH Sodium Potassium Chloride Carbon Dioxide BUN Creatinine Glucose POC Glucose 356 H 385 H Lactic Acid Calcium Ionized Calcium Phosphorus Magnesium AST Total Creatine Kinase C-Reactive Protein Total Protein Albumin TSH Free T4 PTH Intact Urine WBC (Auto) Urine Creatinine Salicylates Acetaminophen 11/09/18 11/09/18 11/09/18 00:57 04:33 04:33 WBC RBC 3.20 L Hgb 9.7 L Hct 29.3 L RDW Plt Count 117 L Lymph % (Auto) 8.2 L [place] % (Auto) 7.4 H Lymph # 0.8 L Seg Neutrophils % 83.2 H Seg Neuts % (Manual) Lymphocytes % (Manual) Seg Neutrophils # Seg Neutrophils # Man Lymphocytes # (Manual) PT INR POC ABG pCO2 VBG pH Sodium 148 H D Potassium Chloride 113.2 H Carbon Dioxide BUN 37 H Creatinine Glucose 252 H POC Glucose 362 H Lactic Acid Calcium 7.8 L Ionized Calcium Phosphorus 1.90 L Magnesium AST 52 H Total Creatine Kinase C-Reactive Protein Total Protein 5.3 L D Albumin 1.6 L TSH Free T4 PTH Intact Urine WBC (Auto) Urine Creatinine Salicylates Acetaminophen 11/09/18 11/09/18 11/09/18 05:24 09:15 13:12 WBC RBC Hgb Hct RDW Plt Count Lymph % (Auto) [place] % (Auto) Lymph # Seg Neutrophils % Seg Neuts % (Manual) Lymphocytes % (Manual) Seg Neutrophils # Seg Neutrophils # Man Lymphocytes # (Manual) PT INR POC ABG pCO2 VBG pH Sodium Potassium Chloride Carbon Dioxide BUN Creatinine Glucose POC Glucose 304 H 297 H 300 H Lactic Acid Calcium Ionized Calcium Phosphorus Magnesium AST Total Creatine Kinase C-Reactive Protein Total Protein Albumin TSH Free T4 PTH Intact Urine WBC (Auto) Urine Creatinine Salicylates Acetaminophen 11/09/18 11/09/18 11/10/18 17:35 21:09 00:55 WBC RBC Hgb Hct RDW Plt Count Lymph % (Auto) [place] % (Auto) Lymph # Seg Neutrophils % Seg Neuts % (Manual) Lymphocytes % (Manual) Seg Neutrophils # Seg Neutrophils # Man Lymphocytes # (Manual) PT INR POC ABG pCO2 VBG pH Sodium Potassium Chloride Carbon Dioxide BUN Creatinine Glucose POC Glucose 262 H 213 H 283 H Lactic Acid Calcium Ionized Calcium Phosphorus Magnesium AST Total Creatine Kinase C-Reactive Protein Total Protein Albumin TSH Free T4 PTH Intact Urine WBC (Auto) Urine Creatinine Salicylates Acetaminophen 11/10/18 11/10/18 11/10/18 04:46 04:46 04:46 WBC RBC 3.17 L Hgb 9.6 L Hct 28.7 L RDW Plt Count Lymph % (Auto) 10.3 L [place] % (Auto) 10.0 H Lymph # 0.8 L Seg Neutrophils % 78.6 H Seg Neuts % (Manual) Lymphocytes % (Manual) Seg Neutrophils # Seg Neutrophils # Man Lymphocytes # (Manual) PT INR POC ABG pCO2 VBG pH Sodium 151 H Potassium 3.5 L Chloride 115.1 H Carbon Dioxide BUN 30 H Creatinine Glucose 183 H POC Glucose Lactic Acid Calcium 7.8 L Ionized Calcium Phosphorus Magnesium AST Total Creatine Kinase 408 H C-Reactive Protein Total Protein 5.7 L Albumin 1.8 L TSH Free T4 PTH Intact Urine WBC (Auto) Urine Creatinine Salicylates Acetaminophen 11/10/18 11/10/18 11/10/18 05:12 08:06 11:32 WBC RBC Hgb Hct RDW Plt Count Lymph % (Auto) [place] % (Auto) Lymph # Seg Neutrophils % Seg Neuts % (Manual) Lymphocytes % (Manual) Seg Neutrophils # Seg Neutrophils # Man Lymphocytes # (Manual) PT INR POC ABG pCO2 VBG pH Sodium Potassium Chloride Carbon Dioxide BUN Creatinine Glucose POC Glucose 201 H 195 H 302 H Lactic Acid Calcium Ionized Calcium Phosphorus Magnesium AST Total Creatine Kinase C-Reactive Protein Total Protein Albumin TSH Free T4 PTH Intact Urine WBC (Auto) Urine Creatinine Salicylates Acetaminophen 11/10/18 11/10/18 11/11/18 15:55 21:44 02:06 WBC RBC Hgb Hct RDW Plt Count Lymph % (Auto) [place] % (Auto) Lymph # Seg Neutrophils % Seg Neuts % (Manual) Lymphocytes % (Manual) Seg Neutrophils # Seg Neutrophils # Man Lymphocytes # (Manual) PT INR POC ABG pCO2 VBG pH Sodium Potassium Chloride Carbon Dioxide BUN Creatinine Glucose POC Glucose 292 H 348 H 370 H Lactic Acid Calcium Ionized Calcium Phosphorus Magnesium AST Total Creatine Kinase C-Reactive Protein Total Protein Albumin TSH Free T4 PTH Intact Urine WBC (Auto) Urine Creatinine Salicylates Acetaminophen 11/11/18 11/11/18 11/11/18 04:42 04:42 05:20 WBC RBC 3.13 L Hgb 9.5 L Hct 28.2 L RDW Plt Count Lymph % (Auto) [place] % (Auto) Lymph # Seg Neutrophils % Seg Neuts % (Manual) 91.0 H Lymphocytes % (Manual) 4.0 L Seg Neutrophils # Seg Neutrophils # Man 8.6 H Lymphocytes # (Manual) 0.4 L PT INR POC ABG pCO2 VBG pH Sodium Potassium Chloride 109.6 H Carbon Dioxide BUN 28 H Creatinine Glucose 263 H POC Glucose 272 H Lactic Acid Calcium 7.9 L Ionized Calcium Phosphorus Magnesium AST Total Creatine Kinase C-Reactive Protein Total Protein 5.6 L Albumin 1.6 L TSH Free T4 PTH Intact Urine WBC (Auto) Urine Creatinine Salicylates Acetaminophen 11/11/18 11/11/18 11/11/18 08:30 13:09 17:10 WBC RBC Hgb Hct RDW Plt Count Lymph % (Auto) [place] % (Auto) Lymph # Seg Neutrophils % Seg Neuts % (Manual) Lymphocytes % (Manual) Seg Neutrophils # Seg Neutrophils # Man Lymphocytes # (Manual) PT INR POC ABG pCO2 VBG pH Sodium Potassium Chloride Carbon Dioxide BUN Creatinine Glucose POC Glucose 290 H 340 H 276 H Lactic Acid Calcium Ionized Calcium Phosphorus Magnesium AST Total Creatine Kinase C-Reactive Protein Total Protein Albumin TSH Free T4 PTH Intact Urine WBC (Auto) Urine Creatinine Salicylates Acetaminophen 11/11/18 11/12/18 11/12/18 22:19 00:29 04:51 WBC RBC 3.22 L Hgb 9.7 L Hct 28.6 L RDW Plt Count 454 H Lymph % (Auto) 7.0 L [place] % (Auto) 7.5 H Lymph # 0.7 L Seg Neutrophils % 83.7 H Seg Neuts % (Manual) Lymphocytes % (Manual) Seg Neutrophils # 7.8 H Seg Neutrophils # Man Lymphocytes # (Manual) PT INR POC ABG pCO2 VBG pH Sodium Potassium Chloride Carbon Dioxide BUN Creatinine Glucose POC Glucose 284 H 262 H Lactic Acid Calcium Ionized Calcium Phosphorus Magnesium AST Total Creatine Kinase C-Reactive Protein Total Protein Albumin TSH Free T4 PTH Intact Urine WBC (Auto) Urine Creatinine Salicylates Acetaminophen 11/12/18 11/12/18 11/12/18 04:51 05:24 09:54 WBC RBC Hgb Hct RDW Plt Count Lymph % (Auto) [place]hen[place] % (Auto) Lymph # Seg Neutrophils % Seg Neuts % (Manual) Lymphocytes % (Manual) Seg Neutrophils # Seg Neutrophils # Man Lymphocytes # (Manual) PT INR POC ABG pCO2 VBG pH Sodium Potassium Chloride 109.1 H Carbon Dioxide BUN 24 H Creatinine Glucose 334 H POC Glucose 335 H 288 H Lactic Acid Calcium 8.2 L Ionized Calcium Phosphorus Magnesium AST Total Creatine Kinase C-Reactive Protein Total Protein 5.5 L Albumin 1.8 L TSH Free T4 PTH Intact Urine WBC (Auto) Urine Creatinine Salicylates Acetaminophen 11/12/18 11/12/18 11/12/18 13:16 16:41 20:58 WBC RBC Hgb Hct RDW Plt Count Lymph % (Auto) [place]hen[place] % (Auto) Lymph # Seg Neutrophils % Seg Neuts % (Manual) Lymphocytes % (Manual) Seg Neutrophils # Seg Neutrophils # Man Lymphocytes # (Manual) PT INR POC ABG pCO2 VBG pH Sodium Potassium Chloride Carbon Dioxide BUN Creatinine Glucose POC Glucose 245 H 343 H 403 H Lactic Acid Calcium Ionized Calcium Phosphorus Magnesium AST Total Creatine Kinase C-Reactive Protein Total Protein Albumin TSH Free T4 PTH Intact Urine WBC (Auto) Urine Creatinine Salicylates Acetaminophen 11/13/18 11/13/18 11/13/18 00:21 04:15 04:15 WBC RBC 3.15 L Hgb 9.6 L Hct 28.0 L RDW Plt Count 633 H Lymph % (Auto) 8.8 L Mchenry % (Auto) 7.6 H Lymph # 0.7 L Seg Neutrophils % 82.2 H Seg Neuts % (Manual) Lymphocytes % (Manual) Seg Neutrophils # Seg Neutrophils # Man Lymphocytes # (Manual) PT INR POC ABG pCO2 VBG pH Sodium 148 H Potassium Chloride 110.1 H Carbon Dioxide BUN 26 H Creatinine Glucose 337 H POC Glucose 391 H Lactic Acid Calcium 8.0 L Ionized Calcium Phosphorus Magnesium AST Total Creatine Kinase C-Reactive Protein Total Protein 5.7 L Albumin 1.8 L TSH Free T4 PTH Intact Urine WBC (Auto) Urine Creatinine Salicylates Acetaminophen 11/13/18 11/13/18 11/13/18 04:32 09:08 17:04 WBC RBC Hgb Hct RDW Plt Count Lymph % (Auto) [place] % (Auto) Lymph # Seg Neutrophils % Seg Neuts % (Manual) Lymphocytes % (Manual) Seg Neutrophils # Seg Neutrophils # Man Lymphocytes # (Manual) PT INR POC ABG pCO2 VBG pH Sodium Potassium Chloride Carbon Dioxide BUN Creatinine Glucose POC Glucose 350 H 285 H 345 H Lactic Acid Calcium Ionized Calcium Phosphorus Magnesium AST Total Creatine Kinase C-Reactive Protein Total Protein Albumin TSH Free T4 PTH Intact Urine WBC (Auto) Urine Creatinine Salicylates Acetaminophen 11/13/18 11/14/18 11/14/18 21:13 01:16 02:38 WBC RBC Hgb Hct RDW Plt Count Lymph % (Auto) [place] % (Auto) Lymph # Seg Neutrophils % Seg Neuts % (Manual) Lymphocytes % (Manual) Seg Neutrophils # Seg Neutrophils # Man Lymphocytes # (Manual) PT INR POC ABG pCO2 VBG pH Sodium 147 H Potassium 5.1 H D Chloride 107.3 H Carbon Dioxide BUN 27 H Creatinine 0.7 L Glucose 298 H POC Glucose 338 H 311 H Lactic Acid Calcium 7.7 L Ionized Calcium Phosphorus Magnesium AST Total Creatine Kinase C-Reactive Protein Total Protein Albumin TSH Free T4 PTH Intact Urine WBC (Auto) Urine Creatinine Salicylates Acetaminophen 11/14/18 11/14/18 11/14/18 05:22 09:09 14:21 WBC RBC Hgb Hct RDW Plt Count Lymph % (Auto) [place] % (Auto) Lymph # Seg Neutrophils % Seg Neuts % (Manual) Lymphocytes % (Manual) Seg Neutrophils # Seg Neutrophils # Man Lymphocytes # (Manual) PT INR POC ABG pCO2 VBG pH Sodium Potassium Chloride Carbon Dioxide BUN Creatinine Glucose POC Glucose 250 H 266 H 270 H Lactic Acid Calcium Ionized Calcium Phosphorus Magnesium AST Total Creatine Kinase C-Reactive Protein Total Protein Albumin TSH Free T4 PTH Intact Urine WBC (Auto) Urine Creatinine Salicylates Acetaminophen 11/14/18 11/14/18 11/15/18 17:06 21:08 01:16 WBC RBC Hgb Hct RDW Plt Count Lymph % (Auto) [place] % (Auto) Lymph # Seg Neutrophils % Seg Neuts % (Manual) Lymphocytes % (Manual) Seg Neutrophils # Seg Neutrophils # Man Lymphocytes # (Manual) PT INR POC ABG pCO2 VBG pH Sodium Potassium Chloride Carbon Dioxide BUN Creatinine Glucose POC Glucose 264 H 257 H 214 H Lactic Acid Calcium Ionized Calcium Phosphorus Magnesium AST Total Creatine Kinase C-Reactive Protein Total Protein Albumin TSH Free T4 PTH Intact Urine WBC (Auto) Urine Creatinine Salicylates Acetaminophen 11/15/18 11/15/18 11/15/18 03:58 03:58 05:01 WBC RBC 3.03 L Hgb 9.2 L Hct 26.8 L RDW 13.1 L Plt Count 831 H Lymph % (Auto) [place]hen[place] % (Auto) 7.5 H Lymph # Seg Neutrophils % 75.0 H Seg Neuts % (Manual) Lymphocytes % (Manual) Seg Neutrophils # Seg Neutrophils # Man Lymphocytes # (Manual) PT INR POC ABG pCO2 VBG pH Sodium 148 H Potassium Chloride 108.5 H Carbon Dioxide 31 H BUN 22 H Creatinine 0.7 L Glucose 184 H POC Glucose 160 H Lactic Acid Calcium 8.3 L Ionized Calcium Phosphorus Magnesium AST Total Creatine Kinase C-Reactive Protein Total Protein 5.6 L Albumin 2.2 L TSH Free T4 PTH Intact Urine WBC (Auto) Urine Creatinine Salicylates Acetaminophen 11/15/18 11/15/18 11/15/18 09:12 14:47 16:38 WBC RBC Hgb Hct RDW Plt Count Lymph % (Auto) [place] % (Auto) Lymph # Seg Neutrophils % Seg Neuts % (Manual) Lymphocytes % (Manual) Seg Neutrophils # Seg Neutrophils # Man Lymphocytes # (Manual) PT INR POC ABG pCO2 VBG pH Sodium Potassium Chloride Carbon Dioxide BUN Creatinine Glucose POC Glucose 139 H 221 H 259 H Lactic Acid Calcium Ionized Calcium Phosphorus Magnesium AST Total Creatine Kinase C-Reactive Protein Total Protein Albumin TSH Free T4 PTH Intact Urine WBC (Auto) Urine Creatinine Salicylates Acetaminophen 11/15/18 11/16/18 11/16/18 21:17 00:53 04:41 WBC RBC Hgb Hct RDW Plt Count Lymph % (Auto) [place] % (Auto) Lymph # Seg Neutrophils % Seg Neuts % (Manual) Lymphocytes % (Manual) Seg Neutrophils # Seg Neutrophils # Man Lymphocytes # (Manual) PT INR POC ABG pCO2 VBG pH Sodium Potassium Chloride Carbon Dioxide 31 H BUN Creatinine 0.6 L Glucose 142 H POC Glucose 187 H 183 H Lactic Acid Calcium 8.1 L Ionized Calcium Phosphorus Magnesium AST Total Creatine Kinase C-Reactive Protein Total Protein 5.6 L Albumin 2.3 L TSH Free T4 PTH Intact Urine WBC (Auto) Urine Creatinine Salicylates Acetaminophen 11/16/18 11/16/18 11/16/18 04:46 10:01 13:09 WBC RBC Hgb Hct RDW Plt Count Lymph % (Auto) [place] % (Auto) Lymph # Seg Neutrophils % Seg Neuts % (Manual) Lymphocytes % (Manual) Seg Neutrophils # Seg Neutrophils # Man Lymphocytes # (Manual) PT INR POC ABG pCO2 VBG pH Sodium Potassium Chloride Carbon Dioxide BUN Creatinine Glucose POC Glucose 135 H 270 H 221 H Lactic Acid Calcium Ionized Calcium Phosphorus Magnesium AST Total Creatine Kinase C-Reactive Protein Total Protein Albumin TSH Free T4 PTH Intact Urine WBC (Auto) Urine Creatinine Salicylates Acetaminophen 11/16/18 11/16/18 11/17/18 17:06 21:54 01:52 WBC RBC Hgb Hct RDW Plt Count Lymph % (Auto) [place] % (Auto) Lymph # Seg Neutrophils % Seg Neuts % (Manual) Lymphocytes % (Manual) Seg Neutrophils # Seg Neutrophils # Man Lymphocytes # (Manual) PT INR POC ABG pCO2 VBG pH Sodium Potassium Chloride Carbon Dioxide BUN Creatinine Glucose POC Glucose 226 H 148 H 152 H Lactic Acid Calcium Ionized Calcium Phosphorus Magnesium AST Total Creatine Kinase C-Reactive Protein Total Protein Albumin TSH Free T4 PTH Intact Urine WBC (Auto) Urine Creatinine Salicylates Acetaminophen 11/17/18 11/17/18 11/17/18 04:48 05:31 07:48 WBC RBC Hgb Hct RDW Plt Count Lymph % (Auto) [place] % (Auto) Lymph # Seg Neutrophils % Seg Neuts % (Manual) Lymphocytes % (Manual) Seg Neutrophils # Seg Neutrophils # Man Lymphocytes # (Manual) PT INR POC ABG pCO2 VBG pH Sodium Potassium Chloride Carbon Dioxide BUN Creatinine 0.6 L Glucose 175 H POC Glucose 140 H 154 H Lactic Acid Calcium 8.0 L Ionized Calcium Phosphorus Magnesium AST Total Creatine Kinase C-Reactive Protein Total Protein 5.6 L Albumin 2.3 L TSH Free T4 PTH Intact Urine WBC (Auto) Urine Creatinine Salicylates Acetaminophen 11/17/18 11/17/18 11/17/18 11:30 16:50 21:48 WBC RBC Hgb Hct RDW Plt Count Lymph % (Auto) [place] % (Auto) Lymph # Seg Neutrophils % Seg Neuts % (Manual) Lymphocytes % (Manual) Seg Neutrophils # Seg Neutrophils # Man Lymphocytes # (Manual) PT INR POC ABG pCO2 VBG pH Sodium Potassium Chloride Carbon Dioxide BUN Creatinine Glucose POC Glucose 256 H 398 H 362 H Lactic Acid Calcium Ionized Calcium Phosphorus Magnesium AST Total Creatine Kinase C-Reactive Protein Total Protein Albumin TSH Free T4 PTH Intact Urine WBC (Auto) Urine Creatinine Salicylates Acetaminophen 11/18/18 11/18/18 11/18/18 02:08 05:26 12:05 WBC RBC Hgb Hct RDW Plt Count Lymph % (Auto) [place] % (Auto) Lymph # Seg Neutrophils % Seg Neuts % (Manual) Lymphocytes % (Manual) Seg Neutrophils # Seg Neutrophils # Man Lymphocytes # (Manual) PT INR POC ABG pCO2 VBG pH Sodium Potassium Chloride Carbon Dioxide BUN Creatinine Glucose POC Glucose 316 H 207 H 189 H Lactic Acid Calcium Ionized Calcium Phosphorus Magnesium AST Total Creatine Kinase C-Reactive Protein Total Protein Albumin TSH Free T4 PTH Intact Urine WBC (Auto) Urine Creatinine Salicylates Acetaminophen 11/18/18 11/18/18 11/19/18 17:08 20:12 00:08 WBC RBC Hgb Hct RDW Plt Count Lymph % (Auto) [place] % (Auto) Lymph # Seg Neutrophils % Seg Neuts % (Manual) Lymphocytes % (Manual) Seg Neutrophils # Seg Neutrophils # Man Lymphocytes # (Manual) PT INR POC ABG pCO2 VBG pH Sodium Potassium Chloride Carbon Dioxide BUN Creatinine Glucose POC Glucose 193 H 235 H 223 H Lactic Acid Calcium Ionized Calcium Phosphorus Magnesium AST Total Creatine Kinase C-Reactive Protein Total Protein Albumin TSH Free T4 PTH Intact Urine WBC (Auto) Urine Creatinine Salicylates Acetaminophen 11/19/18 11/19/18 11/19/18 04:18 07:43 08:02 WBC RBC Hgb Hct RDW Plt Count Lymph % (Auto) [place] % (Auto) Lymph # Seg Neutrophils % Seg Neuts % (Manual) Lymphocytes % (Manual) Seg Neutrophils # Seg Neutrophils # Man Lymphocytes # (Manual) PT INR POC ABG pCO2 VBG pH Sodium Potassium Chloride Carbon Dioxide BUN Creatinine Glucose 72 L POC Glucose 155 H 49 L Lactic Acid Calcium Ionized Calcium Phosphorus Magnesium AST Total Creatine Kinase C-Reactive Protein Total Protein Albumin TSH Free T4 PTH Intact Urine WBC (Auto) Urine Creatinine Salicylates Acetaminophen 11/19/18 11/19/18 11/19/18 11:56 16:44 22:00 WBC RBC Hgb Hct RDW Plt Count Lymph % (Auto) [place] % (Auto) Lymph # Seg Neutrophils % Seg Neuts % (Manual) Lymphocytes % (Manual) Seg Neutrophils # Seg Neutrophils # Man Lymphocytes # (Manual) PT INR POC ABG pCO2 VBG pH Sodium Potassium Chloride Carbon Dioxide BUN Creatinine Glucose POC Glucose 212 H 251 H 270 H Lactic Acid Calcium Ionized Calcium Phosphorus Magnesium AST Total Creatine Kinase C-Reactive Protein Total Protein Albumin TSH Free T4 PTH Intact Urine WBC (Auto) Urine Creatinine Salicylates Acetaminophen 11/20/18 11/20/18 11/20/18 01:14 05:28 12:28 WBC RBC Hgb Hct RDW Plt Count Lymph % (Auto) [place] % (Auto) Lymph # Seg Neutrophils % Seg Neuts % (Manual) Lymphocytes % (Manual) Seg Neutrophils # Seg Neutrophils # Man Lymphocytes # (Manual) PT INR POC ABG pCO2 VBG pH Sodium Potassium Chloride Carbon Dioxide BUN Creatinine Glucose POC Glucose 192 H 150 H 167 H Lactic Acid Calcium Ionized Calcium Phosphorus Magnesium AST Total Creatine Kinase C-Reactive Protein Total Protein Albumin TSH Free T4 PTH Intact Urine WBC (Auto) Urine Creatinine Salicylates Acetaminophen Allied health notes reviewed: nursing
[2018-11-20] MEDS: LANTUS SUB-Q SCH (22:38)
[2018-11-21] MEDS: HumaLOG SUB-Q SCH ×4 (02:27→13:30)
--- NOTE | 2018-11-21 08:57 | Discharge Summary ---
Providers - Providers Date of Admission: 11/04/18 17:42 Date of discharge: 11/21/18 Attending physician: HUGO VALENZUELA 11/04/18 17:02 Consult to Physician [CONS] Urgent Comment: Consulting Provider: PRINCESS BENOIT Physician Instructions: Reason For Exam: arf, dehydration, hyperglycemia 11/04/18 17:44 Consult to Physician [CONS] Routine Comment: Consulting Provider: SALUD JOSEPH Physician Instructions: Reason For Exam: DKA 11/05/18 00:21 Consult to Wound/ET Nurse [CONS] Urgent Reason For Exam: wound eval 11/05/18 08:52 Consult to PICC Line RN [CONS] Routine Reason For Exam: MUILTIP[employer] Type Line:: PICC 11/06/18 14:33 Consult to Dietitian/Nutrition [CONS] Routine Physician Instructions: Reason For Exam: Reason for Consult: Write/Manage Tube Feeding 11/06/18 14:44 Consult to Physician [CONS] Routine Comment: Consulting Provider: JARRED GARCIA Physician Instructions: Reason For Exam: ALTERED MENTAL STATUS 11/06/18 20:08 Consult to Physician [CONS] Urgent Comment: Consulting Provider: MITESH DAN Physician Instructions: Reason For Exam: GI bleeding 11/07/18 12:22 Speech Therapy Evaluation and Treat [CONS] Routine Reason For Exam: swallow evaluation / oropharyngeal dysphagia 11/07/18 12:27 Physical Therapy Evaluation and Treat [CONS] Routine Comment: Reason For Exam: evaluate and treat 11/08/18 11:14 Occupational Therapy Evaluate and Treat [CONS] Routine Comment: Reason For Exam: Debility 11/14/18 09:26 Speech Therapy Evaluation and Treat [CONS] Stat Reason For Exam: swallow test [facility] Reason for admission: Sepsis, metabolic encephalopathy, JAVY Condition: Serious Pertinent studies: CT of the head was normal. Renal US was normal. Abdominal x-ray was normal. Procedures: None Hospital course: 3 YO Male with DM presents to ED for evaluation. Pt is stuporous st time of my exam and unable to provide history. Pt history taken from EMS as well as ED staff. As per staff, the patient found down and unresponsive in his home. Pt last contact with family was 5 days ago. At that time the patient was in his usual state of health. A well check was conducted, and the patient was unable to answer the door. Law Enforcement was contacted, and gained entry into the home. The patient was subsequently found down, and unresponsive and lying on the kitchen floor covered in fecal matter. EMS notified, and upon arrival the patient was found to have a serum glucose above 500, and in distress. Pt transported to [facility]. Pt seen and evaluated in ED and found to have DKA, Metabolic Encephalopathy, Sepsis suspected secondary to UTI, Rhabdomyolysis, Acidosis, and Acute Kidney Injury. QSOFA Score:8. Pt admitted to ICU and initiated on Sepsis protocol, as well as DKA protocol. Nephrology consulted in ED. Pulmonary team consulted in ED. No further history obtainable. No prior admission for review. No medication listed at time of admission for reconciliation. CT scan of the head was unremarkable for any acute event. With IV hydration, sliding scale insulin patient progressively improved and his mental status. Hyponatremia was identified. This was corrected with free water via NG tube that was started on admission. Rhabdomyolysis improved. Patient progressively gained cognitive function was able to maintain a conversation. Strength in the upper extremities improved with Physical therapy engagement. Continued to have received a weakness in both lower extremities. Attempts to get an inpatient rehabilitation at the the [place] and other facilities were made with case management. This was not successful as the patient has no payer source. Blood pressure was appreciably controlled. Sepsis resolved. Patient is therefore discharged to home physical therapy with his adult daughter with home I had extensive discussion. Condition on March Disposition: [id number] TO HOME OR SELFCARE Time spent for discharge: >35 min - Discharge Diagnoses (1) ARF (acute renal failure) Status: Acute (2) DKA (diabetic ketoacidoses) Status: Acute (3) Metabolic encephalopathy Status: Acute (4) Rhabdomyolysis Status: Acute Qualifiers: Encounter type: initial encounter (5) Sepsis Status: Acute Qualifiers: Sepsis type: sepsis due to unspecified organism Qualified Code(s): A41.9 - Sepsis, unspecified organism (6) UTI (urinary tract infection) Status: Acute Qualifiers: Encounter type: initial encounter (7) Decubitus ulcer of left leg Status: Acute (8) Decubitus ulcer of left leg, stage 3 Status: Acute Core Measure Documentation - Palliative Care Palliative Care/ Comfort Measures: Not Applicable - Core Measures Any of the following diagnoses?: none Exam - Physical Exam Narrative exam: Constitutional: Alert and oriented x 3.Very interactive. Head: Normocephalic atraumatic Eyes: Pupils are equal round and reactive to light Nose: No enlarged turbinates, no septal deviation. Mouth: Moist mucous membranes. ON NGT feeding Neck: Supple no thyromegaly. No bruit. No JVD Heart: Regular rate and rhythm, S1-S2 normal. No rubs murmurs or gallop Lungs: Clear to auscultation bilaterally. no rales or rhonchi Abdomen: Soft, nontender. Bowel sound are present. Extremities: No edema, no cyanosis, no clubbing. skin ulcers Neuro:AxO x3 . Answers all short question appropriately. weak only in both LEs Skin: Pressure Skin ulcer in the lower extrmities present on admission Musculoskeletal system: No joint pain or swelling Hematological: No petechia or subcutanous hemorrhages. Immunological: No multiple septic spots on the skin Lymphatic: No generalized lymphadenopathy Psychiatry: No depression - Constitutional Vitals: Temp Pulse Resp BP Pulse Ox 98.1 F 95 H 24 111/72 97 11/21/18 07:00 11/20/18 17:46 11/21/18 07:00 11/21/18 07:00 11/21/18 07:00 Plan Weight Bearing Status: Non-Weight Bearing Diet: diabetic [facility] [Primary Care Provider] - 6 Weeks HUGO VALENZUELA MD [Staff Physician] - 3 Days Prescriptions: Tamsulosin [Flomax] 0.4 mg PO QDAY #30 capsule Glimepiride 4 mg PO BID #60 HYDROcodone/ACETAMINOPHEN 5 - 325 mg PO Q4-6H PRN #8 PRN Reason: Pain, Mild (1-3) Sitagliptin Phosphate [Januvia] 100 mg PO DAILY #30 tablet Lisinopril 2.5 mg PO DAILY #30 Metformin HCl 1,000 mg PO BID #60 NovoLIN N 6 unit SUB-Q BID #1 MDD x 90days Pravastatin Sodium 20 mg PO QHS #30 Pantoprazole [Protonix TAB] 40 mg PO QDAY #30 tablet
[2018-11-21] MEDS: PROTONIX PO SCH (09:10)
[2018-11-21] MEDS: HEPARIN SUB-Q SCH (09:10)
[2018-11-21] MEDS: FLOMAX PO SCH (09:11)
[2018-11-21] MEDS: SODIUM CHLORIDE FLUSH SYRINGE 10 ML IV SCH (09:12)
[2018-11-21 14:54] VITALS: BP 114/73
== END 2018-11-21 16:00 | disposition home health service (06) | DRG 871 ==
LOC: ED 15:01 → CC1 17:42 → IMCU 11-08 20:05 → 3A 11-17 18:14
PROVIDERS: ADMIT Internal Medicine; ATTEND Family Medicine
PROC: 06HY33Z Insertion of Infusion Device into Lower Vein, Percutaneous Approach (ICD-10-PCS; principal; 2018-11-04)
PROC: B54BZZA Ultrasonography of Right Lower Extremity Veins, Guidance (ICD-10-PCS; 2018-11-04)
PROC: 4A033R1 Measurement of Arterial Saturation, Peripheral, Percutaneous Approach (ICD-10-PCS; 2018-11-05)
PROC: 5A09357 Assistance with Respiratory Ventilation, Less than 24 Consecutive Hours, Continuous Positive Airway Pressure (ICD-10-PCS; 2018-11-06)
PROC: 5A09357 Assistance with Respiratory Ventilation, Less than 24 Consecutive Hours, Continuous Positive Airway Pressure (ICD-10-PCS; 2018-11-07)
PROC: 5A09357 Assistance with Respiratory Ventilation, Less than 24 Consecutive Hours, Continuous Positive Airway Pressure (ICD-10-PCS; 2018-11-08)
PROC: 5A09357 Assistance with Respiratory Ventilation, Less than 24 Consecutive Hours, Continuous Positive Airway Pressure (ICD-10-PCS; 2018-11-09)
PROC: 5A09357 Assistance with Respiratory Ventilation, Less than 24 Consecutive Hours, Continuous Positive Airway Pressure (ICD-10-PCS; 2018-11-10)
DX: A41.9 Sepsis, unspecified organism (principal); L89.893 Pressure ulcer of other site, stage 3; E11.10 Type 2 diabetes mellitus with ketoacidosis without coma; G93.41 Metabolic encephalopathy; J96.01 Acute respiratory failure with hypoxia; R65.21 Severe sepsis with septic shock; N17.0 Acute kidney failure with tubular necrosis; E43 Unspecified severe protein-calorie malnutrition; N39.0 Urinary tract infection, site not specified; M62.82 Rhabdomyolysis; E87.0 Hyperosmolality and hypernatremia; K92.2 Gastrointestinal hemorrhage, unspecified; E87.5 Hyperkalemia; E86.0 Dehydration; E03.9 Hypothyroidism, unspecified; E83.51 Hypocalcemia; E83.42 Hypomagnesemia; R13.10 Dysphagia, unspecified; Z68.21 Body mass index [BMI] 21.0-21.9, adult
CPT/HCPCS: 36415; 36600; 70450; 71045; 72125; 74018; 74230; 76770; 80048; 80053; 80307; 80320; 81001; 82140; 82330; 82550; 82570; 82803; 82805; 82947; 82962; 83735; 83970; 84100; 84295; 84300; 84439; 84443; 84484; 85007; 85014; 85018; 85025; 85027; 85610; 85730; 86140; 86850; 86900; 86901; 87040; 87086; 93005; 93010; 94640; 94644; 94660; 94760; 96365; 96366; G0378; C9113; G0480; J0610; J0696; J1644; J1815; J1956; J3370; J7030; J7040; J7070

== ENCOUNTER 2019-01-08 13:04 | Emergency (ER) | payer OTHER ==
--- NOTE | 2019-01-08 13:21 | Event Note ---
ED Screening Note Date of service: 01/08/19 Time: 13:17 ED Screening Note: This is a 53 y.o. M. that presents to the ER with hypoglycemia. Patient states he took lantus 20 units last night. When he woke up this morning his glucose was 279 so he took 16 units of novolog. Reports headache, nausea, and weakness. EMS reports glucose 52, given glucose tabs. This initial assessment/diagnostic orders/clinical plan/treatment(s) is/are subject to change based on patients health status, clinical progression and re- assessment by fellow clinical providers in the ED. Further treatment and workup at subsequent clinical providers discretion. Patient/guardian urged not to elope from the ED as their condition may be serious if not clinically assessed and managed. Initial orders include: POC glucose 72 Labs
[2019-01-08 14:23] LABS: Basophils % (Auto) 0.3 % (0.0-1.8); Eosinophils # (Auto) 0.1 K/mm3 (0.0-0.4); Eosinophils % (Auto) 1.5 % (0.0-4.3); Hematocrit 36.2 % (35.5-45.6); Hemoglobin 12.2 gm/dl (11.8-15.2); Lymphocytes # (Auto) 1.3 K/mm3 (1.2-5.4); Lymphocytes % (Auto) 15.3 % (13.4-35.0); Mean Corpuscular HGB Conc 34 % (32-34); Mean Corpuscular Volume 85 fl (84-94); Monocytes # (Auto) 0.5 K/mm3 (0.0-0.8); Platelet Count 278 K/mm3 (140-440); Red Blood Count 4.26 M/mm3 (3.65-5.03); Red Cell Distribution Width 14.2 % (13.2-15.2)
[2019-01-08 15:08] LABS: Alanine Aminotransferase 9 units/L (7-56); Albumin 3.7 g/dL (3.9-5); BUN/Creatinine Ratio 17; Blood Urea Nitrogen 10 mg/dL (9-20); Calcium 8.8 mg/dL (8.4-10.2); Hemolysis Index 8
[2019-01-08 17:14] LABS: Bacteria,Urine 1+ /HPF (Negative); Bilirubin,Urine NEG (Negative); Blood,Urine NEG (Negative); Color,Urine Amber (Yellow); Hyaline Casts,Urine 3 /LPF; Mucus,Urine 3+ /HPF
--- NOTE | 2019-01-08 18:17 | Emergency Department Report ---
ED General Adult HPI - General Chief complaint: Hypoglycemia Stated complaint: HYPOGLYCEMIA/N/V Time Seen by Provider: 01/08/19 13:15 Source: patient, EMS Mode of arrival: Stretcher Limitations: No Limitations - History of Present Illness Initial comments: pt is a 53-year-old male who presents to the emergency room with complaints of an episode of hypoglycemia that occurred just prior to arrival. he states this morning his blood glucose was 279 and he ate breakfast and took 16 units of his Lantus. pt states that his blood glucose dropped to 50 and he began having nausea and vomiting. Patient was brought in by EMS and EMS gave the patient oral glucose, Zofran, normal saline. Patient states that he has no symptoms currently and just feels hungry. Patient denies any headache, chest pain, shortness of breath, numbness, unilateral weakness, vision changes, syncope, any other symptoms. Patient states [facility] but has not seen his primary care doctor yet. He states he has a past medical history of left foot drop. He denies any allergies to medications. - Related Data Previous Rx's Medication Instructions Recorded Last Taken Type Glimepiride 4 mg PO BID #60 11/21/18 Unknown Rx HYDROcodone/ACETAMINOPHEN 5 - 325 mg PO Q4-6H PRN #8 11/21/18 Unknown Rx Lisinopril 2.5 mg PO DAILY #30 11/21/18 Unknown Rx Metformin HCl 1,000 mg PO BID #60 11/21/18 Unknown Rx NovoLIN N 6 unit SUB-Q BID #1 MDD x 90days 11/21/18 Unknown Rx Pantoprazole [Protonix TAB] 40 mg PO QDAY #30 tablet 11/21/18 Unknown Rx Pravastatin Sodium 20 mg PO QHS #30 11/21/18 Unknown Rx Sitagliptin Phosphate [Januvia] 100 mg PO DAILY #30 tablet 11/21/18 Unknown Rx Tamsulosin [Flomax] 0.4 mg PO QDAY #30 capsule 11/21/18 Unknown Rx Allergies Allergy/AdvReac Type Severity Reaction Status Date / Time No Known Allergies Allergy Unverified 11/04/18 15:22 ED Review of Systems ROS: Stated complaint: HYPOGLYCEMIA/N/V Other details as noted in HPI Comment: All other systems reviewed and negative ED Past Medical Hx - Past Medical History Hx Diabetes: Yes - Social History Smoking Status: Former Smoker Substance Use Type: None - Medications Home Medications: Home Medications Medication Instructions Recorded Confirmed Last Taken Type Glimepiride 4 mg PO BID #60 11/21/18 Unknown Rx HYDROcodone/ACETAMINOPHEN 5 - 325 mg PO Q4-6H PRN #8 11/21/18 Unknown Rx Lisinopril 2.5 mg PO DAILY #30 11/21/18 Unknown Rx Metformin HCl 1,000 mg PO BID #60 11/21/18 Unknown Rx NovoLIN N 6 unit SUB-Q BID #1 MDD x 90days 11/21/18 Unknown Rx Pantoprazole [Protonix TAB] 40 mg PO QDAY #30 tablet 11/21/18 Unknown Rx Pravastatin Sodium 20 mg PO QHS #30 11/21/18 Unknown Rx Sitagliptin Phosphate [Januvia] 100 mg PO DAILY #30 tablet 11/21/18 Unknown Rx Tamsulosin [Flomax] 0.4 mg PO QDAY #30 capsule 11/21/18 Unknown Rx ED Physical Exam - General Limitations: No Limitations General appearance: alert, in no apparent distress - Head Head exam: Present: atraumatic, normocephalic - Eye Eye exam: Present: normal appearance, PERRL, EOMI - ENT ENT exam: Present: mucous membranes moist - Respiratory Respiratory exam: Present: normal lung sounds bilaterally. Absent: respiratory distress, wheezes, rales, rhonchi, stridor, chest wall tenderness, accessory muscle use, decreased breath sounds, prolonged expiratory - Cardiovascular Cardiovascular Exam: Present: regular rate, normal rhythm, normal heart sounds. Absent: systolic murmur, diastolic murmur, rubs, gallop - Neurological Exam Neurological exam: Present: alert, oriented X3, CN II-XII intact, other (equal ramp attendant strength, 5/5 strength in the BUE, able to plantar flex against resistance bilaterally equally, unable to dorsiflex left foot secondary to foot drop, sens ation intact throughout ) - Psychiatric Psychiatric exam: Present: normal affect, normal mood - Skin Skin exam: Present: warm, dry, intact ED Course Vital Signs 01/08/19 01/08/19 13:04 18:43 Temperature 98.4 F Pulse Rate 75 82 Respiratory 15 16 Rate Blood Pressure 125/84 Blood Pressure 120/84 [Right] O2 Sat by Pulse 100 100 Oximetry ED Medical Decision Making - Lab Data Result diagrams: 01/08/19 13:57 01/08/19 13:57 Lab Results 01/08/19 01/08/19 01/08/19 Range/Units 13:28 13:57 13:57 WBC 8.7 (4.5-11.0) K/mm3 RBC 4.26 (3.65-5.03) M/mm3 Hgb 12.2 (11.8-15.2) gm/dl Hct 36.2 (35.5-45.6) % MCV 85 (84-94) fl MCH 29 (28-32) pg MCHC 34 (32-34) % RDW 14.2 (13.2-15.2) % Plt Count 278 (140-440) K/mm3 Lymph % (Auto) 15.3 (13.4-35.0) % [place] % (Auto) 6.0 (0.0-7.3) % Eos % (Auto) 1.5 (0.0-4.3) % Baso % (Auto) 0.3 (0.0-1.8) % Lymph # 1.3 (1.2-5.4) K/mm3 [place] # 0.5 (0.0-0.8) K/mm3 Eos # 0.1 (0.0-0.4) K/mm3 Baso # 0.0 (0.0-0.1) K/mm3 Seg Neutrophils % 76.9 H (40.0-70.0) % Seg Neutrophils # 6.7 (1.8-7.7) K/mm3 Sodium 143 (137-145) mmol/L Potassium 4.1 (3.6-5.0) mmol/L Chloride 103.8 (98-107) mmol/L Carbon Dioxide 31 H (22-30) mmol/L Anion Gap 12 mmol/L BUN 10 (9-20) mg/dL Creatinine 0.6 L (0.8-1.5) mg/dL Estimated GFR > 60 ml/min BUN/Creatinine Ratio 17 % Glucose 89 (75-100) mg/dL POC Glucose 72 (70-105) Calcium 8.8 (8.4-10.2) mg/dL Total Bilirubin 0.50 (0.1-1.2) mg/dL AST 15 (5-40) units/L ALT 9 (7-56) units/L Alkaline Phosphatase 58 (35-129) units/L Total Creatine Kinase (55-170) units/L Total Protein 6.7 (6.3-8.2) g/dL Albumin 3.7 L (3.9-5) g/dL Albumin/Globulin Ratio 1.2 % Urine Color (Yellow) Urine Turbidity (Clear) Urine pH (5.0-7.0) Ur Specific [place] (1.003-1.030) Urine Protein (Negative) mg/dL Urine Glucose (UA) (Negative) mg/dL Urine Ketones (Negative) mg/dL Urine Blood (Negative) Urine Nitrite (Negative) Urine Bilirubin (Negative) Urine Urobilinogen (<2.0) mg/dL Ur Leukocyte Esterase (Negative) Urine WBC (Auto) (0.0-6.0) /HPF Urine RBC (Auto) (0.0-6.0) /HPF Urine Bacteria (Auto) (Negative) /HPF Uric Acid Crystals Hyaline Casts /LPF Urine Mucus /HPF 01/08/19 01/08/19 Range/Units 15:40 17:50 WBC (4.5-11.0) K/mm3 RBC (3.65-5.03) M/mm3 Hgb (11.8-15.2) gm/dl Hct (35.5-45.6) % MCV (84-94) fl MCH (28-32) pg MCHC (32-34) % RDW (13.2-15.2) % Plt Count (140-440) K/mm3 Lymph % (Auto) (13.4-35.0) % [place] % (Auto) (0.0-7.3) % Eos % (Auto) (0.0-4.3) % Baso % (Auto) (0.0-1.8) % Lymph # (1.2-5.4) K/mm3 [place] # (0.0-0.8) K/mm3 Eos # (0.0-0.4) K/mm3 Baso # (0.0-0.1) K/mm3 Seg Neutrophils % (40.0-70.0) % Seg Neutrophils # (1.8-7.7) K/mm3 Sodium (137-145) mmol/L Potassium (3.6-5.0) mmol/L Chloride (98-107) mmol/L Carbon Dioxide (22-30) mmol/L Anion Gap mmol/L BUN (9-20) mg/dL Creatinine (0.8-1.5) mg/dL Estimated GFR ml/min BUN/Creatinine Ratio % Glucose (75-100) mg/dL POC Glucose (70-105) Calcium (8.4-10.2) mg/dL Total Bilirubin (0.1-1.2) mg/dL AST (5-40) units/L ALT (7-56) units/L Alkaline Phosphatase (35-129) units/L Total Creatine Kinase 48 L (55-170) units/L Total Protein (6.3-8.2) g/dL Albumin (3.9-5) g/dL Albumin/Globulin Ratio % Urine Color [place] (Yellow) Urine Turbidity Slightly-cloudy (Clear) Urine pH 5.0 (5.0-7.0) Ur Specific [place] 1.026 (1.003-1.030) Urine Protein 100 mg/dl (Negative) mg/dL Urine Glucose (UA) 150 (Negative) mg/dL Urine Ketones Neg (Negative) mg/dL Urine Blood Neg (Negative) Urine Nitrite Neg (Negative) Urine Bilirubin Neg (Negative) Urine Urobilinogen 2.0 (<2.0) mg/dL Ur Leukocyte Esterase Neg (Negative) Urine WBC (Auto) 9.0 H (0.0-6.0) /HPF Urine RBC (Auto) 24.0 (0.0-6.0) /HPF Urine Bacteria (Auto) 1+ (Negative) /HPF Uric Acid Crystals 2+ Hyaline Casts 3 /LPF Urine Mucus 3+ /HPF - Medical Decision Making pt is a 53-year-old male who presents to the emergency room with complaints of an episode of hypoglycemia that occurred just prior to arrival. he states this morning his blood glucose was 279 and he ate breakfast and took 16 units of his Lantus. pt states that his blood glucose dropped to 50 and he began having nausea and vomiting. Patient was brought in by EMS and EMS gave the patient oral glucose, Zofran, normal saline. Patient states that he has no symptoms currently and just feels hungry. Patient denies any headache, chest pain, shortness of breath, numbness, unilateral weakness, vision changes, syncope, any other symptoms. Patient states he was just recently released from a [facility] center about 2 weeks ago but has not seen his primary care doctor yet. He states he has a past medical history of left foot drop. He denies any allergies to medications. VSS. pts labs are normal. pt was fed and blood glucose repeated and it was 195. pt was observed in the ED for multiple hours and remained asymptomatic. pt states he has an appt with his PCP at the OR. advised pt to Please eat 3 full meals daily. please take your blood sugar 3 times a day. please see your primary care doctor in the next 2-3 days for management of your diabetes and insulin. Return to the emergency room for any new or worsening symptoms. Critical care attestation.: If time is entered above; I have spent that time in minutes in the direct care of this critically ill patient, excluding procedure time. ED Disposition Clinical Impression: Hypoglycemia Nausea and vomiting Qualifiers: Vomiting type: unspecified Vomiting Intractability: non-intractable Qualified Code(s): R11.2 - Nausea with vomiting, unspecified Disposition: DC- TO HOME OR SELFCARE Is pt being admited?: No Does the pt Need Aspirin: No Condition: Stable Instructions: Diabetic Hypoglycemia (ED), Acute Nausea and Vomiting (ED) Additional Instructions: Please eat 3 full meals daily. please take your blood sugar 3 times a day. please see your primary care doctor in the next 2-3 days for management of your diabetes and insulin. Return to the emergency room for any new or worsening s ymptoms. Referrals: [facility] [Provider Group] - 2-3 Days Time of Disposition: 19:36 Print Language: [place]THER[place] IRISH
[2019-01-08 18:43] VITALS: BP 120/84
== END 2019-01-08 19:48 | disposition home or self-care (01) ==
LOC: ED 13:04
DX: E11.649 Type 2 diabetes mellitus with hypoglycemia without coma (principal); R11.2 Nausea with vomiting, unspecified; Z79.899 Other long term (current) drug therapy; Z87.891 Personal history of nicotine dependence; Z79.84 Long term (current) use of oral hypoglycemic drugs
CPT/HCPCS: 36415; 80053; 81001; 82550; 82962; 85025; 87086; 99284